=== PATIENT | female | born 1940 | race Caucasian/White ===

== ENCOUNTER 2018-06-04 20:40 | Inpatient (IN) | payer MEDICARE, BC ==
--- NOTE | 2018-06-04 20:59 | ED ---
Trauma HPI - General Chief Complaint: Extremity Injury, Upper Stated Complaint: Fall,arm injury Time Seen by Provider: 06/04/18 20:40 Source: patient, EMS, RN notes reviewed Mode of arrival: EMS Limitations: no limitations - History of Present Illness Initial Comments: This is a 77-year-old female who is on Elaquis who was brought in by EMS due to a fall. She barely tripped up a small step 8 her forehead against a door and falling forward onto outstretched hand. She complains of pain to her mid and distal right forearm she was given IV pain medication around it was wrapped she started bleeding after was wrapped. No complaints of back pain she refuses a cervical collar. MD Complaint: fall, injury - Related Data Home Medications Medication Instructions Recorded Confirmed Apixaban [Eliquis] 5 mg PO BID 06/04/18 06/04/18 Budesonide [Pulmicort] 0.5 mg INHALATION BID 06/04/18 06/04/18 Cholecalciferol (Vitamin D3) 4,000 unit PO DAILY 06/04/18 06/04/18 [Vitamin D3] Esomeprazole Magnesium [NexIUM] 40 mg PO DAILY 06/04/18 06/04/18 Magnesium 400 mg PO DAILY 06/04/18 06/04/18 Topiramate [Topamax] 25 mg PO DAILY 06/04/18 06/04/18 Allergies Allergy/AdvReac Type Severity Reaction Status Date / Time adhesive tape Allergy Unknown Verified 06/04/18 20:55 ciprofloxacin [From Cipro] Allergy Unknown Verified 06/04/18 20:55 epinephrine Allergy Unknown Verified 06/04/18 20:55 Penicillins Allergy Unknown Verified 06/04/18 20:55 povidone-iodine Allergy Unknown Verified 06/04/18 20:55 [From Betadine] soap [From Betadine] Allergy Unknown Verified 06/04/18 20:55 Sulfa (Sulfonamide Allergy Unknown Verified 06/04/18 20:55 Antibiotics) Tetanus Vaccines and Toxoid Allergy Unknown Verified 06/04/18 20:55 Review of Systems ROS Statement: Those systems with pertinent positive or pertinent negative responses have been documented in the HPI. ROS Other: All systems not noted in ROS Statement are negative. Past Medical History Past Medical History: Atrial Fibrillation, Asthma, COPD Additional Past Medical History / Comment(s): migraines; osteoporosis History of Any Multi-Drug Resistant Organisms: None Reported Past Surgical History: Appendectomy, Cholecystectomy, Hysterectomy Past Psychological History: No Psychological Hx Reported Smoking Status: Former smoker Past Alcohol Use History: None Reported Past Drug Use History: None Reported General Exam - General Exam Comments Initial Comments: This is a well-developed well-nourished awake alert oriented 3 female she does physical Jennifer Coma Scale 15 Limitations: no limitations General appearance: alert, anxious Head exam: Present: normocephalic, other (Slight contusion noted to the anterior mid to left forehead no step-off or crepitation) Eye exam: Present: normal appearance, PERRL, EOMI. Absent: scleral icterus, conjunctival injection, periorbital swelling ENT exam: Present: normal exam, mucous membranes moist Neck exam: Present: normal inspection, tenderness, full ROM, other (Patient does have some tenderness palpation of the lateral posterior neck no spinous process tenderness she still refuses a cervical collar. She also refused to comply with staying still.). Absent: lymphadenopathy Respiratory exam: Present: normal lung sounds bilaterally. Absent: respiratory distress, wheezes, rales, rhonchi, stridor Cardiovascular Exam: Present: regular rate, normal rhythm, normal heart sounds. Absent: systolic murmur, diastolic murmur, rubs, gallop, clicks GI/Abdominal exam: Present: soft, normal bowel sounds. Absent: distended, tenderness, guarding, rebound, rigid Extremities exam: Present: tenderness, normal capillary refill, other (Is a deformity to the distal right forearm is a small bleeding puncture wound to the distal volar medial forearm approximately 2-3 mm of his of any bony presentation though this may represent a puncture wound from bone fragment additionally there is a second puncture wound noted lateral to this with some small amount of venous bleeding..). Absent: full ROM, pedal edema, joint swelling, calf tenderness Back exam: Present: normal inspection Neurological exam: Present: alert, oriented X3, CN II-XII intact Psychiatric exam: Present: normal affect, normal mood Skin exam: Present: warm, dry, intact, normal color. Absent: rash Course Vital Signs 06/04/18 06/04/18 06/04/18 20:42 22:07 22:50 Temperature 97.8 F 99.2 F 98.1 F Pulse Rate 87 83 81 Respiratory 20 20 18 Rate Blood Pressure 179/77 155/67 153/82 O2 Sat by Pulse 96 96 96 Oximetry 06/04/18 23:25 Temperature Pulse Rate 75 Respiratory 18 Rate Blood Pressure 146/64 O2 Sat by Pulse 95 Oximetry Procedures - Orthopedic Splinting/Casting Injury #1 Side: right Upper Extremity Injury Location: short arm, wrist (I did place a 4 x 34 forearm/ wrist splint. Is good neurovascular exam afterwards. There were 2 puncture wounds were cleaned and antibiotic ointment were placed on them. A clean dressing was then applied this prior to the splint. Patient tolerated this well ) Upper Extremity Immobilizer: volar splint Medical Decision Making - Medical Decision Making I did discuss findings with the patient family CAT scan of the head neck are negative. I did discuss the case with Mamadou mike who did consult with Dr. Boykin. Patient will be admitted nothing by mouth after midnight medical clearance. Surgeries expected tomorrow. - Lab Data Result diagrams: 06/04/18 20:50 06/04/18 20:50 Lab Results 06/04/18 06/04/18 06/04/18 Range/Units 20:50 20:50 20:50 WBC 9.4 (3.8-10.6) k/uL RBC 4.09 (3.80-5.40) m/uL Hgb 12.9 (11.4-16.0) gm/dL Hct 39.7 (34.0-46.0) % MCV 97.0 (80.0-100.0) fL MCH 31.6 (25.0-35.0) pg MCHC 32.6 (31.0-37.0) g/dL RDW 15.1 (11.5-15.5) % Plt Count 239 (150-450) k/uL Neutrophils % 51 % Lymphocytes % 41 % Monocytes % 6 % Eosinophils % 1 % Basophils % 0 % Neutrophils # 4.7 (1.3-7.7) k/uL Lymphocytes # 3.8 (1.0-4.8) k/uL Monocytes # 0.5 (0-1.0) k/uL Eosinophils # 0.1 (0-0.7) k/uL Basophils # 0.0 (0-0.2) k/uL PT 10.5 (9.0-12.0) sec INR 1.1 (<1.2) APTT 23.8 (22.0-30.0) sec Sodium (137-145) mmol/L Potassium (3.5-5.1) mmol/L Chloride (98-107) mmol/L Carbon Dioxide (22-30) mmol/L Anion Gap mmol/L BUN (7-17) mg/dL Creatinine (0.52-1.04) mg/dL Est GFR (CKD-EPI)AfAm (>60 ml/min/1.73 sqM) Est GFR (CKD-EPI)NonAf (>60 ml/min/1.73 sqM) Glucose (74-99) mg/dL Calcium (8.4-10.2) mg/dL Magnesium (1.6-2.3) mg/dL Total Bilirubin (0.2-1.3) mg/dL AST (14-36) U/L ALT (9-52) U/L Alkaline Phosphatase (38-126) U/L Total Creatine Kinase 61 (30-135) U/L CK-MB (CK-2) 1.0 (0.0-2.4) ng/mL CK-MB (CK-2) Rel Index 1.6 Total Protein (6.3-8.2) g/dL Albumin (3.5-5.0) g/dL 06/04/18 Range/Units 20:50 WBC (3.8-10.6) k/uL RBC (3.80-5.40) m/uL Hgb (11.4-16.0) gm/dL Hct (34.0-46.0) % MCV (80.0-100.0) fL MCH (25.0-35.0) pg MCHC (31.0-37.0) g/dL RDW (11.5-15.5) % Plt Count (150-450) k/uL Neutrophils % % Lymphocytes % % Monocytes % % Eosinophils % % Basophils % % Neutrophils # (1.3-7.7) k/uL Lymphocytes # (1.0-4.8) k/uL Monocytes # (0-1.0) k/uL Eosinophils # (0-0.7) k/uL Basophils # (0-0.2) k/uL PT (9.0-12.0) sec INR (<1.2) APTT (22.0-30.0) sec Sodium 143 (137-145) mmol/L Potassium 4.0 (3.5-5.1) mmol/L Chloride 111 H (98-107) mmol/L Carbon Dioxide 21 L (22-30) mmol/L Anion Gap 11 mmol/L BUN 23 H (7-17) mg/dL Creatinine 1.21 H (0.52-1.04) mg/dL Est GFR (CKD-EPI)AfAm 51 (>60 ml/min/1.73 sqM) Est GFR (CKD-EPI)NonAf 44 (>60 ml/min/1.73 sqM) Glucose 112 H (74-99) mg/dL Calcium 9.3 (8.4-10.2) mg/dL Magnesium 2.1 (1.6-2.3) mg/dL Total Bilirubin 0.5 (0.2-1.3) mg/dL AST 46 H (14-36) U/L ALT 39 (9-52) U/L Alkaline Phosphatase 82 (38-126) U/L Total Creatine Kinase (30-135) U/L CK-MB (CK-2) (0.0-2.4) ng/mL CK-MB (CK-2) Rel Index Total Protein 6.8 (6.3-8.2) g/dL Albumin 4.1 (3.5-5.0) g/dL - EKG Data -: EKG Interpreted by Me (Sinus rhythm of 82. Interval 156 QRS 106 QT since QTC of 14/488 left exode) - Radiology Data Radiology results: report reviewed (I did review the imaging and report evidence of distal both bone fracture of the right forearm some impaction dorsal displacement of the distal fragment. Please see the complete report), image reviewed Disposition Clinical Impression: Open right forearm fracture, Fall Disposition: ADMITTED IP TO THIS [facility] Condition: Stable Referrals: Derik Hawley MD [Primary Care Provider] - 1-2 days
[2018-06-04] MEDS ORDERED: DIPH,PERTUS(ACELL)TETVAC-LF 0.5 ML VIAL IM ONE (21:19)
[2018-06-04] MEDS ORDERED: CLINDAMYCIN 600 MG in DEXTROSE 5% IN WATER 50 ML IVPB STA ×2 (21:19)
[2018-06-04 21:24] LABS: Albumin 4.1 g/dL (3.5-5.0); Calcium 9.3 mg/dL (8.4-10.2); Magnesium 2.1 mg/dL (1.6-2.3); Total Bilirubin 0.5 mg/dL (0.2-1.3); Total Protein 6.8 g/dL (6.3-8.2)
[2018-06-04 21:29] LABS: Basophils % (A) 0 %; Eosinophils # (A) 0.1 k/uL (0-0.7); Eosinophils % (A) 1 %; HCT 39.7 % (34.0-46.0); HGB 12.9 gm/dL (11.4-16.0); Lymphocytes # (A) 3.8 k/uL (1.0-4.8); Lymphocytes % (A) 41 %; MCH 31.6 pg (25.0-35.0); MCHC 32.6 g/dL (31.0-37.0); Mean Platelet Volume 7.3; Monocytes # (A) 0.5 k/uL (0-1.0); Monocytes % (A) 6 %; Neutrophils # (A) 4.7 k/uL (1.3-7.7); Neutrophils % (A) 51 %; Platelet Count 239 k/uL (150-450); RBC 4.09 m/uL (3.80-5.40); RDW 15.1 % (11.5-15.5); WBC 9.4 k/uL (3.8-10.6)
[2018-06-04 21:34] LABS: INR 1.1 (<1.2); Partial Thromboplastin Time 23.8 sec (22.0-30.0); Prothrombin Time 10.5 sec (9.0-12.0)
--- NOTE | 2018-06-04 21:41 | CT ---
EXAMINATION TYPE: CT brain fitz heard con DATE OF EXAM: 06/04/2018 COMPARISON: None. HISTORY: 77-year-old female with pain after Fall. CT DLP: 1276.4 mGycm Automated exposure control for dose reduction was used. Technique: Examination of the head was done in axial plane without intravenous contrast. Coronal and sagittal reconstructions performed. CT of the cervical spine was obtained in axial plane without intravenous injection of contrast mater ial. Coronal and sagittal reformatted images were obtained from the axial views for evaluation of f ractures, spinal alignment and canal. FINDINGS: Head: There is no evidence of acute intracranial hemorrhage, acute ischemic changes, mass, mass-effect, or extra-axial fluid collection. There is no effacement of cerebral sulci or basal subarachnoid cister ns. There is no hydrocephalus. There is no midline shift. Pool-white matter distinction is preserv ed. Moderate confluent white matter hypodensities in both cerebral hemispheres. Mild mucosal thickening posterior floor right maxillary sinus. Mastoid air cells well pneumatized. Or bits and globes are intact. No calvarial fracture. Cervical spine: No craniocervical junction abnormality, predental space widening, or prevertebral soft tissue swellin g. Mild to moderate degenerative disc disease at C5-C6 with a right-sided disc osteophyte complex. Scattered mild uncovertebral joint and facet arthropathy particularly in the mid to lower lumbar spin e. Variable mild neuroforaminal narrowing throughout. No acute fracture of the cervical spine. Retropharyngeal course of the bilateral ICAs. Sagittal and coronal reformatted images confirm above findings. COMBINED IMPRESSION: 1. No acute intracranial abnormality seen. Moderate confluent changes of chronic small vessel ischemi c disease. 2. No acute fracture or malalignment of the cervical spine. Mild spondylotic change.
--- NOTE | 2018-06-04 21:47 | XR ---
EXAMINATION TYPE: XR chest 1V, XR forearm 2 views RT DATE OF EXAM: 06/04/2018 COMPARISON: NONE HISTORY: 77-year-old female weight cough and pain after fall today FINDINGS: CHEST: Heart mildly enlarged. Diffuse interstitial densities. Possible trace left effusion. No shailesh consoli dation seen. Right forearm: Elbow articulation appears grossly intact. There is a comminuted, impacted fracture of the distal rad ial metaphysis and epiphysis with intra-articular extension into both the distal radial ulnar joint a s well as the radiocarpal joint. Shailesh dorsal displacement and dorsal angulation. Additional impacted and dorsally angulated fracture of the distal ulnar shaft extending into the metadiaphysis. IMPRESSION: 1. Chest: Mild cardiomegaly and interstitial changes. Poorly for possible bronchitis, asthma, or mild pulmonary vascular congestion. Possible trace left pleural effusion. 2. Right forearm: Impacted, dorsally angulated, and comminuted fractures of the distal radius and uln a. The distal radial fracture is also displaced dorsally and with intra-articular extension into both the radiocarpal and distal radioulnar joints.
[2018-06-04] MEDS ORDERED: LORazepam 2 MG/ML INJ IV STA (22:29)
--- NOTE | 2018-06-04 23:35 | XR ---
EXAMINATION TYPE: XR wrist complete RT DATE OF EXAM: 06/04/2018 COMPARISON: NONE HISTORY: Wrist pain TECHNIQUE: 3 views FINDINGS: There is impacted comminuted transverse fracture of the distal radius. There is also adjace nt fracture of the distal ulna. There is no dislocation. There is slight anterior angulation at the f racture sites. There is osteopenia. IMPRESSION: Acute fractures of distal radius and ulna with some impaction. No dislocation.
[2018-06-05] MEDS ORDERED: NALOXONE 0.4 MG/ML 1 ML VIAL IV PRN (00:10)
[2018-06-05] MEDS: SODIUM CHLORIDE 0.9% 1,000 ML IV SCH ×2 (00:20→10:00)
[2018-06-05] MEDS: HYDROmorphone 1 MG/ML 1 ML SYRINGE IVP PRN ×4 (01:10→09:55)
[2018-06-05] MEDS ORDERED: KETOROLAC 30 MG/ML 1 ML VIAL IVP STA (02:02)
--- NOTE | 2018-06-05 02:34 | P.CONS ---
History of Present Illness - Reason for Consult Consult date: 06/05/18 pre op clearance Requesting physician: Tuan Boykin - Chief Complaint fall , left forearm pain - History of Present Illness 77-year-old female with history of A. fib on Eliquis Patient presented the hospital after sustaining a fall. Patient reports that she was tripped and fell with outstretched hand hit her head did not lose consciousness she denies any symptoms associated with the fall like dizziness or lightheadedness. Denies any chest pain or trouble breathing. The fall resulted in severe pain in her right forearm. She also noticed wounds and she was bleeding. She was brought to the hospital by EMS further imaging revealed distal right radius and ulnar open fracture. Patient admitted under orthopedic surgery for possible surgical intervention. Otherwise patient currently denies any chest pain or trouble breathing denies any fevers or chills denies any coughing denies any abdominal pain denies any nausea or vomiting. Patient denies any GI bleeding. She is in severe pain 10 out of 10 in severity over her right forearm which has currently been placed in a back splint. Denies any numbness and tingling in her right fingers Review of Systems Pertinent positives as noted in HPI. All other systems were reviewed and are negative Past Medical History Past Medical History: Atrial Fibrillation, Asthma, COPD Additional Past Medical History / Comment(s): migraines; osteoporosis History of Any Multi-Drug Resistant Organisms: None Reported Past Surgical History: Appendectomy, Cholecystectomy, Hysterectomy Past Psychological History: No Psychological Hx Reported Smoking Status: Former smoker Past Alcohol Use History: None Reported Past Drug Use History: None Reported - Past Family History Family Additional Family Medical History / Comment(s): Patient denies any history of coronary artery disease Medications and Allergies Home Medications Medication Instructions Recorded Confirmed Type Apixaban [Eliquis] 5 mg PO BID 06/04/18 06/04/18 History Budesonide [Pulmicort] 0.5 mg INHALATION BID 06/04/18 06/04/18 History Cholecalciferol (Vitamin D3) 4,000 unit PO DAILY 06/04/18 06/04/18 History [Vitamin D3] Esomeprazole Magnesium [NexIUM] 40 mg PO DAILY 06/04/18 06/04/18 History Magnesium 400 mg PO DAILY 06/04/18 06/04/18 History Topiramate [Topamax] 25 mg PO DAILY 06/04/18 06/04/18 History Allergies Allergy/AdvReac Type Severity Reaction Status Date / Time adhesive tape Allergy Unknown Verified 06/04/18 20:55 ciprofloxacin [From Cipro] Allergy Unknown Verified 06/04/18 20:55 epinephrine Allergy Unknown Verified 06/04/18 20:55 Penicillins Allergy Unknown Verified 06/04/18 20:55 povidone-iodine Allergy Unknown Verified 06/04/18 20:55 [From Betadine] soap [From Betadine] Allergy Unknown Verified 06/04/18 20:55 Sulfa (Sulfonamide Allergy Unknown Verified 06/04/18 20:55 Antibiotics) Tetanus Vaccines and Toxoid Allergy Unknown Verified 06/04/18 20:55 Physical Exam Vitals: Vital Signs Temp Pulse Pulse Resp BP BP Pulse Ox 06/05/18 01:44 98.0 F 74 16 115/50 95 06/05/18 00:36 98.5 F 75 20 164/61 98 06/04/18 23:25 75 18 146/64 95 06/04/18 22:50 98.1 F 81 18 153/82 96 06/04/18 22:07 99.2 F 83 20 155/67 96 06/04/18 20:42 97.8 F 87 20 179/77 96 Intake and Output 06/04/18 06/04/18 06/05/18 14:59 22:59 06:59 Other: Weight 69.4 kg Constitutional: No acute distress, conversant, pleasant, well-developed , Eyes: Anicteric sclerae, moist conjunctiva, no lid-lag Pupils equal round reactive to light ENMT: NC/ evidence of bruising in the left forehead no open wounds Oropharynx clear, no erythema, or exudates Neck: Supple, FROM, no masses, or JVD No carotid bruits No thyromegaly Lungs: Clear to auscultation Clear to percussion Normal respiratory effort, no accessory muscle use Cardiovascular: Heart regular in rate and rhythm, No murmurs, gallops, or rubs No peripheral edema Abdominal: Soft Nontender, no guarding, rebound or rigidity Abdomen moving with respiration Normoactive bowel sounds No hepatomegaly, No splenomegaly No palpable mass No abdominal wall hernia noted Skin: Normal temperature, tone, texture, turgor No induration No subcutaneous nodules No rash, lesions No ulcers Extremities: Capillary refill is immediate over the right gutters, sensation is intact denies any tingling or numbness No digital cyanosis No clubbing Pedal pulses intact and symmetrical Radial pulses intact over the left breast, could not be evaluated on the right wrist due to splint and surgical dressing No calf tenderness Psychiatric: Alert and oriented to person, place and time Appropriate affect fair judgment Neuro Muscles Strength 5/5 in all 4 extremities except for limited exam over the right upper extremity due to severe pain and back splint placement Sensation to light touch grossly present throughout Cranial nerves II-XII grossly intact No focal sensory deficits Lymphatics: no palpable cervical or supraclavicular , or inguinal lymph nodes Results CBC & Chem 7: 06/04/18 20:50 06/04/18 20:50 Labs: Abnormal Lab Results - Last 24 Hours (Table) 06/04/18 Range/Units 20:50 Chloride 111 H (98-107) mmol/L Carbon Dioxide 21 L (22-30) mmol/L BUN 23 H (7-17) mg/dL Creatinine 1.21 H (0.52-1.04) mg/dL Glucose 112 H (74-99) mg/dL AST 46 H (14-36) U/L Assessment and Plan Assessment: patient is 77year old Female, with history of A. fib on Eliquis presetned after sustaining a fall resulting in wounds and pain in her right forearm further imaging showed distal fracture of right radius and ulna. Patient admitted under surgery for possible surgical intervention the morning medicine consult for preop clearance Patient denies any recent history or symptoms of congestive heart failure, mycardial infarction, syncope, arrhythmia, palpitation, or exertional dyspnea. Patient denies any past medical history of stroke, CAD, CHF, CKD, or DM. Patient is functional at baseline at >4 METs she is able to walk independently and also able to climb a flight of stairs only limiting factor would be arthritis at times. This puts her at METs over 4 Patient labs reviewed, EKG showed normal sinus rhythm. Patient is scheduled for orthopedic surgery to fix distal fracture of right radius and ulna. This is of moderate risk, however, patient has no medical risk factors from her past medical history. Patient can proceed to surgery with moderate but acceptable perioperative cardiovascular risk factors. This has been explained to the patient , all questions answered, patient verbalized understanding and agreement. Plan: Paroxysmal A. fib on Eliquis currently in sinus rhythm Hold Eliquis for possible surgery Distal fracture of right radius and ulna with open wound Management per orthopedic Pain control Back splint in place Regular checks to rule out neurovascular compromise DVT prophylaxis patient is on Eliquis at home currently on hold for possible surgery, continue with mechanical DVT prophylaxis Patient is full code Slight elevation of creatinine unknown baseline, recheck in the morning Monitor urine output Continue with IV fluid hydration gently Thank you for allowing us to participate in the care of this patient. Do not hesitate to contact us with questions. Someone can be reached from the [facility] hospitalist group at all hours of the day at [phone].
[2018-06-05 02:37] LABS: Appearance,Urine Cloudy (Clear); Bacteria,Urine Many /hpf; Bilirubin,Urine Negative (Negative); Blood,Urine Negative (Negative); Color,Urine Yellow; Glucose,Urine (UA) Negative (Negative); Ketones,Urine 1+ (Negative); Leukocyte Esterase,Urine Large (Negative); Mucus,Urine Occasional /hpf; Nitrite,Urine Negative (Negative); Protein,Urine 1+ (Negative); RBC,Urine 7 /hpf (0-5); Squamous Epithelial Cell,Urine 1 /hpf (0-4); WBC,Urine >182 /hpf (0-5)
[2018-06-05 08:25] LABS: Calcium 8.5 mg/dL (8.4-10.2); Potassium 4.3 mmol/L (3.5-5.1)
--- NOTE | 2018-06-05 09:32 | P.HPOR ---
History of Present Illness H&P Date: 06/05/18 Chief Complaint: Right wrist fracture Patient is a 77-year-old female who presented to [facility] last night after sustaining a fall in her home. Patient tripped and fell into a door, she initially had her head and then landed on the stretch right hand. She denies losing consciousness from the fall. She did immediate pain and deformity noted on the wrist. Upon arrival to [facility], imaging and lab tests were done. Images demonstrated a comminuted and displaced left distal radius and ulna fracture. I was contacted from the emergency room at [facility], discuss the case with the position. There was concern of 2 puncture wounds on the volar aspect of the wrist, it was determined this was likely from bone fragments and considered an open fracture. There is no obvious visual bone on exam by the emergency room physician. Patient was placed into a volar splint with Ivc wrap. She was given a dose IV antibiotics. According to the emergency room staff, the patient remained neurovascularly intact, and no serious amounts of blood loss were noted. Patient was admitted under our care, I was able to discuss the case and exam findings along with imaging studies might any Dr. Boykin. Plan was for surgery to happen on 06/05/2018. Consults were placed for medical clearance for surgery. I was able to examine the patient at bedside today, she is resting comfortably. She notes discomfort in the right wrist when she attempts to move it. She denies any left upper extremity pain, bilateral lower extremity pain, new onset cervical, thoracic or lumbar pain. She denies any headaches, lightheadedness, chest pain, shortness of breath, abdominal discomfort, fever or chills. Review of Systems Constitutional: Reports as per HPI Past Medical History Past Medical History: Atrial Fibrillation, Asthma, COPD, GERD/Reflux Additional Past Medical History / Comment(s): migraines; osteoporosis History of Any Multi-Drug Resistant Organisms: None Reported Past Surgical History: Appendectomy, Cholecystectomy, Hysterectomy, Tonsillectomy Additional Past Surgical History / Comment(s): D&C, colonoscopy Past Anesthesia/Blood Transfusion Reactions: Motion Sickness Additional Past Anesthesia/Blood Transfusion Reaction / Comment(s): Pt states she has severe motion sickness Smoking Status: Former smoker - Past Family History Mother Additional Family Medical History / Comment(s): Pt states mother had severe migraines and at the age of 43yrs while hospitalized with severe migraine but does not know cause of . Father Family Medical History: Myocardial Infarction ([place]) Additional Family Medical History / Comment(s): Father of a [place] at the age of 54yrs. Family Additional Family Medical History / Comment(s): Patient denies any history of coronary artery disease Medications and Allergies Home Medications Medication Instructions Recorded Confirmed Type Apixaban [Eliquis] 5 mg PO BID 06/04/18 06/04/18 History Budesonide [Pulmicort] 0.5 mg INHALATION BID 06/04/18 06/04/18 History Cholecalciferol (Vitamin D3) 4,000 unit PO DAILY 06/04/18 06/04/18 History [Vitamin D3] Esomeprazole Magnesium [NexIUM] 40 mg PO DAILY 06/04/18 06/04/18 History Magnesium 400 mg PO DAILY 06/04/18 06/04/18 History Topiramate [Topamax] 25 mg PO DAILY 06/04/18 06/04/18 History Allergies Allergy/AdvReac Type Severity Reaction Status Date / Time adhesive tape Allergy Unknown Verified 06/04/18 20:55 ciprofloxacin [From Cipro] Allergy Unknown Verified 06/04/18 20:55 epinephrine Allergy Unknown Verified 06/04/18 20:55 latex Allergy Rash/Hives Verified 06/05/18 08:08 Penicillins Allergy Unknown Verified 06/04/18 20:55 povidone-iodine Allergy Unknown Verified 06/04/18 20:55 [From Betadine] soap [From Betadine] Allergy Unknown Verified 06/04/18 20:55 Sulfa (Sulfonamide Allergy Unknown Verified 06/04/18 20:55 Antibiotics) Tetanus Vaccines and Toxoid Allergy Unknown Verified 06/04/18 20:55 Physical Examination Right upper extremity: Volar wrist splint is intact with the Vic bandage, bloody drainage is noted on the splint. Patient is able to wiggle the fingers minimal difficulty, her sensation to light touch both proximal distal to the splint are intact. Skin is warm to touch Results - Labs Labs: Abnormal Lab Results - Last 24 Hours (Table) 06/04/18 06/05/18 06/05/18 Range/Units 20:50 02:11 07:12 Chloride 111 H 116 H (98-107) mmol/L Carbon Dioxide 21 L 19 L (22-30) mmol/L BUN 23 H 23 H (7-17) mg/dL Creatinine 1.21 H (0.52-1.04) mg/dL Glucose 112 H 118 H (74-99) mg/dL AST 46 H (14-36) U/L Urine Appearance Cloudy H (Clear) Urine Protein 1+ H (Negative) Urine Ketones 1+ H (Negative) Ur Leukocyte Esterase Large H (Negative) Urine RBC 7 H (0-5) /hpf Urine WBC >182 H (0-5) /hpf Urine WBC Clumps Few H (None) /hpf Urine Bacteria Many H (None) /hpf Urine Mucus Occasional H (None) /hpf H & H 06/04/18 Range/Units 20:50 Hgb 12.9 (11.4-16.0) gm/dL Hct 39.7 (34.0-46.0) % Coagulation 06/04/18 Range/Units 20:50 INR 1.1 (<1.2) Result Diagrams: 06/04/18 20:50 06/05/18 07:12 - Diagnostic results Wrist/Hand x-ray: report reviewed, image reviewed Assessment and Plan Plan: Imaging: Multiple views of the right wrist were obtained. Images demonstrated a comminuted displaced right distal radius fracture. There is also displacement and fracture noted of the distal ulna. Assessment: 1. Displaced and comminuted right distal radius fracture 2. Displaced right distal ulna fracture Plan: The case was discussed my attending Dr. Boykin, this including exam findings and imaging studies. Our plan is to proceed with an open reduction internal fixation of the right distal radius. Consent will declare possible need for ORIF of right distal ulna fracture. Risk and benefits the procedure discussed the patient, I advised her that she' ll be able to discuss Dr. Boykin any further questions in the preoperative period. I also explained to the patient I would discuss the case with her . Obtain consent Nothing by mouth Pain control Medical clearances Hold eliquis at this time, resume after surgery Further recommendations follow after surgery Time with Patient: Less than 30
--- NOTE | 2018-06-05 10:16 | P.PN ---
Progress Note - Text Progress Note Date: 06/05/18 Hospitalist update note: Patient seen at bedside. C/O pain in her arm, no shortness of breath or nausea, no vomiting. Plan is for OR today, last eliquis 06/03 in the evening. Gen.: Moderate distress secondary to pain, appears at stated age, normal weight Cardiovascular: S1-S2 without murmurs/rubs/gallops, no edema Lungs: Clear to auscultation bilaterally without rhonchi or wheeze, no accessory muscle use Musculoskeletal: Right arm in dressings with small amount of sanguineous soak through Open Fracture of the Ulna and radius on the right -Orthopedic management Probable urinary tract infection -1 dose of Rocephin now and every 24 hours -Await urine cultures Chronic atrophic ablation -Telemetry -Hold eliquis until cleared by orthopedics for this medication. No billing is associated with this note, for formal note from 06/05 please see consultation by Dr. Alcantara.
--- NOTE | 2018-06-05 13:07 | XR ---
EXAMINATION TYPE: XR chest 1V portable DATE OF EXAM: 06/05/2018 COMPARISON: 06/04/2018 HISTORY: Shortness of breath TECHNIQUE: Single frontal view of the chest is obtained. FINDINGS: Bilateral consolidation and tiny effusion. Interstitial pattern seen. No pneumothorax. Art hropathy of the shoulders. Diffuse osteopenia. IMPRESSION: 1. Bilateral infiltrate and tiny effusion. Correlate for pneumonia versus early venous congestion.
[2018-06-05] MEDS ORDERED: FUROSEMIDE 10 MG/ML 2 ML VIAL IV ONE (13:08)
[2018-06-05 13:09] LABS: HCT 42.5 % (34.0-46.0); HGB 13.3 gm/dL (11.4-16.0); Hypochromasia Slight; MCH 31.5 pg (25.0-35.0); MCHC 31.3 g/dL (31.0-37.0); MCV 100.7 fL (80.0-100.0); Macrocytosis Slight; Mean Platelet Volume 7.1; Platelet Count 190 k/uL (150-450); RBC 4.22 m/uL (3.80-5.40); RDW 15.1 % (11.5-15.5); WBC 6.2 k/uL (3.8-10.6)
[2018-06-05 13:18] LABS: ABG Base Excess -7.8 mmol/L; ABG HCO3 18 mmol/L (21-25); ABG Oxygen Saturation 94.8 % (94-97); ABG PCO2 32 mmHg (35-45); ABG PH 7.35 (7.35-7.45); ABG PO2 70 mmHg (83-108); ABG TCO2 19 mmol/L (19-24)
[2018-06-05] MEDS: CLINDAMYCIN 300 MG in DEXTROSE 5% IN WATER 50 ML IVPB SCH ×4 (13:37→22:27)
--- NOTE | 2018-06-05 14:03 | P.PN ---
Progress Note - Text Progress Note Date: 06/05/18 Called to see patient note: CTSP the patient around 11 AM secondary to sudden onset hypoxia. Arrived to bedside patient was satting 88% on 5 L nasal cannula. She was slightly confused but arousable. Denied any chest pain or shortness of breath. Nursing reports that this is sudden occurrence after receiving some Dilaudid a couple hours prior. Patient had not been complaining anything prior to onset. manager user interface had gone in to examine patient and heard some crackles. General: [non toxic], [no distress], [appears at stated age] Derm: [warm], [dry] Head: [atraumatic], [normocephalic], [symmetric] Eyes: [EOMI], [no lid lag], [anicteric sclera] Mouth: [no lip lesion], [mucus membranes moist] Cardiovascular: [S1S2 reg], [no murmur], [positive posterior tibial pulse bilateral], Lungs: [CTA bilateral], [no rhonchi, no rales] , [no accessory muscle use] Abdominal: [soft], [ nontender to palpation], [no guarding], [no appreciable organomegaly] Ext: [no gross muscle atrophy], [no edema], [no contractures] Neuro: [ CN II-XI grossly intact], [no focal neuro deficits] Psych: [Alert], [oriented], [appropriate affect] 1. Fluid overload -Had checked stat EKG consistent with sinus tachycardia no ST segment elevation. Troponin negative. Hemoglobin stable. No prior history of CHF. CXR consistent with fluid overload. - IV fluids discontinued - Lasix 20 IVP, correia cath - ABG stable. 2. Sinus tachycardia - due to above - lasxi 3. UTI- rocephin ordered Suspect CHF, will check echo in AM. 4. COPD - will need breathing treatments prior to surgery. 5. Open wrist fracture - likely surgery today. Per Dr. Boykin OR today is needed due to open fracture. Discussed with Anesthesia monorail charger operator and he is aware of acute fluid overload and current medications being given. Patient is at elevated risk for post-op complications with acute fluid overload , however not prohibitive risk as repair is needed due to open fracture. Patient is aware. A total of 30 minutes of critical care time was spent on this complex care.
[2018-06-05] MEDS ORDERED: NON-FORMULARY DRUG (Ipratropium/Albuterol Sulfate [Combivent Respimat Inhaler] 1 PUFF) INHALATION PRN (14:05)
[2018-06-05] MEDS ORDERED: IV FLUID CONTINUATION 700 ML IV ONE (16:41)
[2018-06-05] MEDS ORDERED: MIDAZOLAM 2 MG/2 ML VIAL ONE ×2 (16:57→18:27)
[2018-06-05] MEDS: TOPIRAMATE 25 MG TAB PO SCH ×2 (17:00→23:16)
[2018-06-05] MEDS ORDERED: MIDAZOLAM 2 MG/2 ML VIAL IVP ONE (17:10)
[2018-06-05] MEDS ORDERED: PROPOFOL 10 MG/ML 20 ML VIAL IV ONE (18:27)
[2018-06-05] MEDS ORDERED: NEOSTIGMINE 1 MG/ML 10 ML VIAL ONE (18:27)
[2018-06-05] MEDS ORDERED: SUCCINYLCHOLINE CHLORIDE 100 MG/5 ML SYR IV ONE (18:27)
[2018-06-05] MEDS ORDERED: ROPIVACAINE 5 MG/ML 30 ML VIAL ONE (18:27)
[2018-06-05] MEDS ORDERED: ePHEDrine SULFATE/0.9% NACL/PF 50 MG/5 ML SYRINGE IV ONE (18:27)
[2018-06-05] MEDS ORDERED: ROCURONIUM BROMIDE 10 MG/ML 10 ML VIAL IV ONE (18:27)
[2018-06-05] MEDS ORDERED: GLYCOPYRROLATE 0.2 MG/ML 2 ML VIAL ONE (18:27)
--- NOTE | 2018-06-05 18:51 | ECHOF ---
Referral Reason:CHF MEASUREMENTS -------- HEIGHT: 147.3 cm WEIGHT: 69.4 kg BP: 162/70 RVIDd: 2.4 cm (< 3.3) IVSd: 1.1 cm (0.6 - 1.1) LVIDd: 3.3 cm (3.9 - 5.3) LVPWd: 1.1 cm (0.6 - 1.1) IVSs: 1.6 cm LVIDs: 2.5 cm LVPWs: 1.6 cm LA Diam: 3.0 cm (2.7 - 3.8) Ao Diam: 3.0 cm (2.0 - 3.7) AV Cusp: 1.8 cm (1.5 - 2.6) MV EXCURSION: 16.659 mm (> 18.000) MV EF SLOPE: 121 mm/s (70 - 150) EPSS: 0.4 cm RAP: 5.00 mmHg RVSP: 37.00 mmHg FINDINGS -------- Resting tachycardia (HR>100bpm). This was a technically difficult study with suboptimal views. The left ventricular size is normal. There is borderline concentric left ventricular hypertrophy. Overall left ventricular systolic function is normal with, an EF between 55 - 60 %. The right ventricle is normal in size. The left atrial size is normal. The right atrium is normal in size. 3 ml of Lumason was utilized for enhancement of images. There is mild aortic valve sclerosis. Mild mitral annular calcification present. Mild tricuspid regurgitation present. There is mild pulmonary hypertension. The right ventricular systolic pressure, as measured by Doppler, is 37.00mmHg. The pulmonic valve was not well visualized. The aortic root size is normal. IVC Not well visulized. There is no pericardial effusion. CONCLUSIONS -------- 1. Resting tachycardia (HR>100bpm). 2. This was a technically difficult study with suboptimal views. 3. The left ventricular size is normal. 4. There is borderline concentric left ventricular hypertrophy. 5. Overall left ventricular systolic function is normal with, an EF between 55 - 60 %. 6. The right ventricle is normal in size. 7. The left atrial size is normal. 8. The right atrium is normal in size. 9. 3 ml of Lumason was utilized for enhancement of images. 10. There is mild aortic valve sclerosis. 11. Mild mitral annular calcification present. 12. Mild tricuspid regurgitation present. 13. There is mild pulmonary hypertension. 14. The right ventricular systolic pressure, as measured by Doppler, is 37.00mmHg. 15. The pulmonic valve was not well visualized. 16. The aortic root size is normal. 17. IVC Not well visulized. 18. There is no pericardial effusion. PACKAGING CLERK: Merced Pérez RDCS
[2018-06-05] MEDS: SYMBICORT 80-4.5 MCG INHALER INHALATION SCH (19:26)
[2018-06-05] MEDS ORDERED: CLINDAMYCIN 600 MG in SODIUM CHLORIDE 0.9% 1,000 ML IRRIGATION ONE (19:33)
--- NOTE | 2018-06-05 19:49 | P.OP ---
Date of Procedure: 06/05/18 Preoperative Diagnosis: Comminuted/displaced right distal radius ulnar fractures Postoperative Diagnosis: Same Procedure(s) Performed: Open reduction and internal fixation right distal radius fracture Implants: Synthes distal volar wrist plate with 6 locking smooth distal pegs and 3 proximal cortical screws Anesthesia: GEORGE Surgeon: Tuan Boykin Refiner Operator #1: Rebel Jacobo Estimated Blood Loss (ml): 15 Pathology: none sent Condition: stable Disposition: PACU Indications for Procedure: 77-year-old patient seen with a displaced right distal radius ulna fracture with comminution. There was also a small little wound measuring 2 mm along the distal ulnar side of the wrist. I recommended open reduction internal fixation. The procedure, risks, complications and recovery were discussed with the patient. She was agreeable and consent was obtained. Operative Findings: see description of procedure Description of Procedure: The patient was taken to the operative suite. The patient had received antibiotics. I attempted regional anesthetic was done by the department of anesthesia. The patient still had a fair amount of pain at the fracture site. At this point she underwent a general anesthetic by the primary a seizure. Well -padded tourniquet placed proximal right upper extremity. The right upper extremity was prepped and draped in the normal sterile orthopedic fashion. The extremity was elevated and tourniquet insufflated to 250. Was a small 2 mm wound along the distal ulnar aspect of the first. There was no evidence that this communicated with the fracture. I made a standard volar incision sharply through skin. Dissection was taken down to the fascia. The fascia was incised. I dissected down the fracture site. Blunt Warriormine's were positioned for retraction... Elevation was utilized to better define the fracture. It was a severely comminuted distal radius fracture. C-arm was brought in confirming this. I chose a Synthes distal volar wrist plate. I position it appropriately. I pulled one single cortical screw proximally for preliminary fixation. I brought the C-arm to the operative field at this point and confirmed good positioning of the plate. Again the distal fracture was severely comminuted. Mamadou CANDELARIO held the fracture in appropriate position while at this point I inserted multiple smooth pegs distally to achieve fixation in this very comminuted fracture. The C-arm brought in to the operative field confirming adequate alignment and good positioning of those pegs. At this point introduced 2 additional proximal cortical screws. At this point the entire construct was evaluated under AP and lateral intraoperative imaging and under live fluoroscopy I took the wrist range of motion and noted reasonable stability of the distal ulna fracture as well. At this point given the severe comminution of that as well and overall good stability intraoperatively I decided to accept that alignment. The wound was irrigated. The subcutaneous soft tissues were approximated with 3-0 Vicryl. The skin was approximated with 4-0 nylon suture. Sterile dressings were applied. The tourniquet was released with good immediate capillary refill noted of all digits. The patient's placed into a well-padded splint. She was awakened, transferred to a bed and then recovery stable condition. Mamadou CANDELARIO assisted procedure.
[2018-06-05] MEDS: HYDROmorphone 1 MG/ML 1 ML SYRINGE IVP ONE ×2 (20:00→20:15)
--- NOTE | 2018-06-05 20:50 | P.ONQ ---
Anesthesiology Proc Note - PNB - Peripheral Nerve Block Performed Right Infraclavicular Single Time Out Performed: Yes Procedure Start Time: 17:11 Procedure Stop Time: 17:19 Indication: Acute Post-Operative Pain, Requested by physician Sedation Type: Sedate with meaningful contact maintained Preparation: Sterile Prep Position: Supine Needle Size: 50mm (2") Needle Gauge: 21 Technique: Ultrasound Injectate: 0.5% Ropivacaine (see comment for volume) (ropi .5% 20cc) Blood Aspirated: No Pain Paresthesia on Injection Noted: No Resistance on Injection: Normal Events: Uneventful and Well Tolerated
[2018-06-05] MEDS: IPRATROPIUM BROMIDE 0.06% NASAL SPRAY (15 ML) EA NOSTRIL SCH ×2 (22:27→23:16)
[2018-06-05] MEDS: MORPHINE SULFATE 2 MG/ML SYRINGE IVP PRN (23:06)
[2018-06-05] MEDS: NON-FORMULARY DRUG (Omega-3 Acid Ethyl Esters [Lovaza] 2 GM) PO SCH (23:15)
[2018-06-05] MEDS: MONTELUKAST 10 MG TAB PO SCH (23:16)
[2018-06-06] MEDS: CLINDAMYCIN 300 MG in DEXTROSE 5% IN WATER 50 ML IVPB SCH ×4 (00:45→06:14)
[2018-06-06] MEDS: LEVOTHYROXINE 75 MCG TAB PO SCH (06:14)
[2018-06-06 07:45] LABS: HCT 37.6 % (34.0-46.0); HGB 12.3 gm/dL (11.4-16.0); MCH 32.1 pg (25.0-35.0); MCHC 32.8 g/dL (31.0-37.0); Mean Platelet Volume 7.4; Platelet Count 188 k/uL (150-450); RBC 3.84 m/uL (3.80-5.40); RDW 15.4 % (11.5-15.5); WBC 12.1 k/uL (3.8-10.6)
[2018-06-06 08:18] LABS: Calcium 7.8 mg/dL (8.4-10.2); Potassium 3.6 mmol/L (3.5-5.1)
--- NOTE | 2018-06-06 08:22 | XR ---
EXAMINATION TYPE: XR wrist limited RT DATE OF EXAM: 06/05/2018 COMPARISON: 06/04/2020 HISTORY: Postop TECHNIQUE: Two intraoperative image submitted FINDINGS: Postsurgical changes appear in near anatomic alignment. Displaced fracture involving the ul na noted. IMPRESSION: Postoperative change
--- NOTE | 2018-06-06 08:28 | FL ---
EXAMINATION TYPE: FL guidance operating room DATE OF EXAM: 06/05/2018 HISTORY: Flouroscopy time 28 seconds of fluoroscopy provided. IMPRESSION: 1. Fluoroscopy time.
[2018-06-06] MEDS: FOLIC ACID 1 MG TAB PO SCH (08:33)
[2018-06-06] MEDS: TOPIRAMATE 25 MG TAB PO SCH ×3 (08:33→21:43)
[2018-06-06] MEDS: NON-FORMULARY DRUG (Omega-3 Acid Ethyl Esters [Lovaza] 2 GM) PO SCH ×2 (08:36→21:41)
[2018-06-06] MEDS ORDERED: HYDROCHLOROTHIAZIDE 25 MG TAB PO SCH (09:00)
[2018-06-06] MEDS: SYMBICORT 80-4.5 MCG INHALER INHALATION SCH ×2 (09:07→20:43)
[2018-06-06] MEDS: MORPHINE SULFATE 2 MG/ML SYRINGE IVP PRN (09:31)
--- NOTE | 2018-06-06 10:20 | P.PN ---
Subjective Progress Note Date: 06/06/18 Principal diagnosis: Right arm pain Patient seen and examined. No acute events overnight. Patient reports improvement in her breathing since yesterday. Patient reports pain with movement of her right arm. Unable to quantify. She denies any shortness of breath, cough, chest pain, palpitations. Objective - Vital Signs Vital signs: Vital Signs Temp 97.7 F 06/06/18 07:00 Pulse 104 H 06/06/18 07:00 Resp 16 06/06/18 07:00 BP 110/69 06/06/18 07:00 Pulse Ox 97 06/06/18 07:00 Intake & Output 06/05/18 06/06/18 06/06/18 18:59 06:59 18:59 Intake Total 50 555 0 Output Total 565 100 Balance 50 -10 -100 Intake: IV 50 105 Oral 450 0 Output: Urine 550 Straight 100 Uretheral (Us) 300 Post Void Residual 100 Estimated Blood Loss 15 Other: Voiding Method Toilet Indwelling Catheter # Voids 3 - Exam General: [non toxic], [no distress], [appears at stated age] Derm: [warm], [dry] Head: [atraumatic], [normocephalic], [symmetric] Eyes: [EOMI], [no lid lag], [anicteric sclera] Mouth: [no lip lesion], [mucus membranes moist] Cardiovascular: [S1S2 reg], [no murmur], [irregular] Lungs: [CTA bilateral], [no rhonchi, no rales] , [no accessory muscle use] Abdominal: [soft], [ nontender to palpation], [no guarding], [no appreciable organomegaly] Ext: [no gross muscle atrophy], [no edema], [no contractures], [RUE wrapped, TTP , sensation intact to touch in all 5 fingers] Psych: [Alert], [oriented], [appropriate affect] - Labs CBC & Chem 7: 06/06/18 07:14 06/06/18 07:14 Labs: Abnormal Lab Results - Last 24 Hours (Table) 06/05/18 06/05/18 06/06/18 Range/Units 12:46 13:16 07:14 WBC 12.1 H (3.8-10.6) k/uL MCV 100.7 H (80.0-100.0) fL ABG pCO2 32 L (35-45) mmHg ABG pO2 70 L (83-108) mmHg ABG HCO3 18 L (21-25) mmol/L Chloride (98-107) mmol/L Carbon Dioxide (22-30) mmol/L BUN (7-17) mg/dL Calcium (8.4-10.2) mg/dL 06/06/18 Range/Units 07:14 WBC (3.8-10.6) k/uL MCV (80.0-100.0) fL ABG pCO2 (35-45) mmHg ABG pO2 (83-108) mmHg ABG HCO3 (21-25) mmol/L Chloride 112 H (98-107) mmol/L Carbon Dioxide 20 L (22-30) mmol/L BUN 26 H (7-17) mg/dL Calcium 7.8 L (8.4-10.2) mg/dL Microbiology - Last 24 Hours (Table) 06/05/18 02:11 Urine Culture - Preliminary Urine,Voided Assessment and Plan Assessment: Assessment and Plan 1. RUE pain: Mechanical fall. XR shows distal angulated open Fx of the radius and ulnar RUE. s/p ORIF POD 2. Pain management with Tylenol 650 mg PO Q6 PRN, Morphine 2 mg IV Q6H PRN for breakthrough. Will DC Clindamycin and continue Ceftriaxone. FU PT/OT, Orthopedic Sx 2. SOB: Resolved. EKG showing S. tachycardia with no ST changes. Hg 13.3 stable. Trop < 0.012. CXR showing BL infiltrate and tiny effusion, consistent with fluid overload. Given Lasix x 1 yesterday with resolution. Echo 55-60% with LVH. Optimize COPD medications. Avoid opiates for pain control if possible. O2 per NC to maintain O2 sat > 92%. Will continue to monitor. 3. Tachycardia: Sinus. Likely related to pain. Ensure adequate pain management. Avoid IVF due to overload prior to Sx. Telemetry monitoring. 4. UTI: UA shows large LE. Difficulty urinating per patient. Continue Rocephin 1g IV QD. FU UCx 5. Prerenal azotemia: BUN 26, Cr wnl. Likely due to dehydration. Hold home medication Lisinopril and HCTZ. No IVF due to overload prior to Sx. Encourage PO hydration. Avoid nephrotoxins. FU Daily BMP 6. Leukocytosis: WBC 12.1. Likely reactive due to pain or UTI. FU Daily CBC 7. A-Fib: s/p ablation. Resume Eliquis when OK by Orthopedic Sx. Telemetry monitoring. 8. COPD: Stable. Continue Symbicort 2 puff BID and Singulair 10 mg PO QHS. DuoNeb QID PRN for SOB. O2 per NC to maintain O2 sat > 92%. 9. HTN: BP 110/69. Continue HCTZ 25 mg PO QD. Monitor vitals, adjust medication as necessary. 10. Hypothyroidism: Stable. Conttinue Synthroid 50 mcg PO QSun + 75 mcg PO QMtoSat. 11. DVT/GI Prophylaxis: SCD boots only. Holding Eliquis until OK by Orthopedic Sx. Protonix 40 mg PO QD.
[2018-06-06] MEDS: IPRATROPIUM BROMIDE 0.06% NASAL SPRAY (15 ML) EA NOSTRIL SCH ×3 (11:57→21:42)
--- NOTE | 2018-06-06 13:29 | CDI ---
Last Revision, August 2017 Documentation Clarification Form Date: 06/06/18 From: Juany Al RN Admit Date: 06/05/2018 12:10:00 PM Patient Name: Radhika Duncan Visit Number: [id number] ATTENTION: The Clinical Documentation Specialists (CDI) and [facility] Coding Staff appreciate your assistance in clarifying documentation. Please respond to the clarification below the line at the bottom and electronically sign. The CDI & [facility] Coding staff will review the response and follow-up if needed. Please note: Queries are made part of the Legal Health Record. If you have any questions, please contact the author of this message via ITS. Dr. Shorty Lagunas MD, A diagnosis of UTI has been documented in the PN on 06/05. Pt. admitted for fall with open right forearm fracture History/Risk factors: A FIB, COPD, GERD, asthma, migraines, x smoker Clinical indicators: Per documentation in the ED notes state Us catheter was placed for urinary retention. Urinalysis: appearance cloudy, protein +1H, Ketones 1+ H, WBC >182, WBC clumps few, bacteria many, mucus occasional Urine culture: in progress Lab results on admission: CHL 111, C02 21, BUN 23, CR 1.21, AST 46 Treatment: Ceftriaxone IVPB .9 @ 100ml/hr In your professional opinion, can you please clarify the etiology of the UTI, if known? Us catheter UTI not related to catheter Other condition, please specify Unable to determine If an infective organism is present, please specify cause and effect relationship if applicable. MTDD
[2018-06-06] MEDS: ACETAMINOPHEN TAB 325 MG TAB PO PRN ×2 (14:44→21:43)
--- NOTE | 2018-06-06 17:10 | P.PN ---
Subjective Progress Note Date: 06/06/18 Principal diagnosis: Status post ORIF right distal radius fracture Patient seen today resting in her hospital chair, she appears comfortable. She remains slightly confused. Pain is controlled at this time. She denies any chest pain, fever chills. Objective - Vital Signs Vital signs: Vital Signs Temp 98.2 F 06/06/18 14:20 Pulse 121 H 06/06/18 14:20 Resp 16 06/06/18 14:20 BP 110/74 06/06/18 14:20 Pulse Ox 90 L 06/06/18 14:20 Intake & Output 06/05/18 06/06/18 06/06/18 18:59 06:59 18:59 Intake Total 50 555 118 Output Total 565 450 Balance 50 -10 -332 Intake: IV 50 105 Oral 450 118 Output: Urine 550 350 Straight 100 Uretheral (Us) 300 Post Void Residual 100 Estimated Blood Loss 15 Other: Voiding Method Toilet Indwelling Catheter # Voids 3 - Exam Right upper extremity: Splint is in good position and condition Soft tissue swelling present in the fingers She is able to wiggle the fingers and minimal difficulty Sensation to light touch. Proximal distal to the splint are intact - Labs CBC & Chem 7: 06/06/18 07:14 06/06/18 07:14 Labs: Abnormal Lab Results - Last 24 Hours (Table) 06/06/18 06/06/18 Range/Units 07:14 07:14 WBC 12.1 H (3.8-10.6) k/uL Chloride 112 H (98-107) mmol/L Carbon Dioxide 20 L (22-30) mmol/L BUN 26 H (7-17) mg/dL Calcium 7.8 L (8.4-10.2) mg/dL Microbiology - Last 24 Hours (Table) 06/05/18 02:11 Urine Culture - Preliminary Urine,Voided Gram Neg Bacilli Assessment and Plan Plan: Assessment: Postoperative day 1 status post ORIF right distal radius fracture Plan: Pain control, attempt to use Tylenol Elevate the wrist/hand often Will discuss with medicine outpatient oral antibiotics for open fracture Medical recommendations Discharge plan: Discharged home tomorrow Time with Patient: Less than 30
[2018-06-06] MEDS: PANTOPRAZOLE 40 MG TABLET PO SCH (18:05)
[2018-06-06] MEDS: MONTELUKAST 10 MG TAB PO SCH (21:42)
[2018-06-06] MEDS: APIXABAN 5 MG TAB PO SCH (21:42)
[2018-06-07] MEDS: LEVOTHYROXINE 75 MCG TAB PO SCH (05:48)
[2018-06-07] MEDS: ACETAMINOPHEN TAB 325 MG TAB PO PRN ×3 (05:48→20:23)
[2018-06-07] MEDS: SYMBICORT 80-4.5 MCG INHALER INHALATION SCH ×2 (07:08→19:35)
--- NOTE | 2018-06-07 08:03 | P.PN ---
Subjective Progress Note Date: 06/07/18 Principal diagnosis: Distal angulated open fracture of the radius and ulna in the right upper extremity Patient is seen and examined. No acute events overnight. Patient reports great improvement in her right arm pain. She denies any dysuria. She denies shortness of breath, chest pain, nausea, vomiting, fever, dizziness. Patient is looking forward to going home this morning. Objective - Vital Signs Vital signs: Vital Signs Temp 98.2 F 06/07/18 07:35 Pulse 91 06/07/18 07:35 Resp 16 06/07/18 07:35 BP 92/59 06/07/18 07:35 Pulse Ox 93 L 06/07/18 07:35 Intake & Output 06/06/18 06/07/18 06/07/18 18:59 06:59 18:59 Intake Total 378 300 Output Total 450 Balance -72 300 Intake: Oral 378 300 Output: Urine 350 Post Void Residual 100 Other: Voiding Method Toilet # Voids 3 - Exam General: [non toxic], [no distress], [appears at stated age] Derm: [warm], [dry] Head: [atraumatic], [normocephalic], [symmetric] Eyes: [EOMI], [no lid lag], [anicteric sclera] Mouth: [no lip lesion], [mucus membranes moist] Cardiovascular: [S1S2 reg], [no murmur], [irregular] Lungs: [CTA bilateral], [no rhonchi, no rales] , [no accessory muscle use] Abdominal: [soft], [ nontender to palpation], [no guarding], [no appreciable organomegaly] Ext: [no gross muscle atrophy], [no edema], [no contractures], [RUE wrapped, TTP , sensation intact to touch in all 5 fingers, able to wiggle all fingers] Psych: [Alert], [oriented], [appropriate affect] - Labs CBC & Chem 7: 06/06/18 07:14 06/06/18 07:14 Labs: Abnormal Lab Results - Last 24 Hours (Table) 06/06/18 Range/Units 07:14 Chloride 112 H (98-107) mmol/L Carbon Dioxide 20 L (22-30) mmol/L BUN 26 H (7-17) mg/dL Calcium 7.8 L (8.4-10.2) mg/dL Microbiology - Last 24 Hours (Table) 06/05/18 02:11 Urine Culture - Preliminary Urine,Voided Gram Neg Bacilli Assessment and Plan Assessment: Assessment and Plan 1. RUE pain: Mechanical fall. XR shows distal angulated open Fx of the radius and ulnar RUE. s/p ORIF POD 2. Pain management with Tylenol 650 mg PO Q6 PRN, Morphine 2 mg IV Q6H PRN for breakthrough. Continue Ceftriaxone 1g IV QD, Abx for open Fx on DC as per Ortho. FU PT/OT, Orthopedic Sx 2. UTI: UA shows large LE. Difficulty urinating per patient. Continue Rocephin 1g IV QD. UCx showing GNR > 100k. FU UCx 3. Prerenal azotemia: BUN 26, Cr wnl. Likely due to dehydration. Hold home medication Lisinopril and HCTZ. No IVF due to overload prior to Sx. Encourage PO hydration. Avoid nephrotoxins. FU Daily BMP 4. Leukocytosis: WBC 12.1. Likely reactive due to pain or UTI. FU Daily CBC 5. SOB: Resolved. EKG showing S. tachycardia with no ST changes. Hg 13.3 stable. Trop < 0.012. CXR showing BL infiltrate and tiny effusion, consistent with fluid overload. Given Lasix x 1 with resolution prior to Sx. Echo 55-60% with LVH. Optimize COPD medications. Avoid opiates for pain control if possible. O2 per NC to maintain O2 sat > 92%. 6. Tachycardia: Resolved. Sinus. Likely related to pain. Ensure adequate pain management. Avoid IVF due to overload prior to Sx. Telemetry monitoring. 7. A-Fib: s/p ablation. Started Eliquis 5 mg PO BID as per Ortho. Telemetry monitoring. 8. COPD: Stable. Continue Symbicort 2 puff BID and Singulair 10 mg PO QHS. DuoNeb QID PRN for SOB. O2 per NC to maintain O2 sat > 92%. 9. HTN: BP 92/59. On the low side - hold HCTZ. Monitor vitals, adjust medication as necessary. 10. Hypothyroidism: Stable. Conttinue Synthroid 50 mcg PO QSun + 75 mcg PO QMtoSat. 11. DVT/GI Prophylaxis: Eliquis 5 mg PO BID. Protonix 40 mg PO QD. Patients mentation has greatly improved, pain under control. Patient looking forward to going home. Pending UCx results. States and nephew's family takes care of her at home. SOB and Tachycardia resolved. Likely DC today per Ortho recommendations.
[2018-06-07 08:13] LABS: HCT 37.5 % (34.0-46.0); HGB 12.3 gm/dL (11.4-16.0); MCH 32.4 pg (25.0-35.0); MCHC 32.9 g/dL (31.0-37.0); MCV 98.5 fL (80.0-100.0); Mean Platelet Volume 7.3; Platelet Count 196 k/uL (150-450); RBC 3.81 m/uL (3.80-5.40); RDW 15.1 % (11.5-15.5); WBC 17.1 k/uL (3.8-10.6)
[2018-06-07 08:39] LABS: Calcium 8.1 mg/dL (8.4-10.2)
[2018-06-07] MEDS: IPRATROPIUM BROMIDE 0.06% NASAL SPRAY (15 ML) EA NOSTRIL SCH ×3 (09:00→22:19)
[2018-06-07 09:02] LABS: Potassium 3.5 mmol/L (3.5-5.1)
[2018-06-07] MEDS: PANTOPRAZOLE 40 MG TABLET PO SCH (10:03)
[2018-06-07] MEDS: APIXABAN 5 MG TAB PO SCH ×2 (10:03→20:23)
[2018-06-07] MEDS: FOLIC ACID 1 MG TAB PO SCH (10:07)
--- NOTE | 2018-06-07 12:41 | P.PN ---
Subjective Progress Note Date: 06/07/18 Principal diagnosis: Status post ORIF right distal radius fracture Patient seen today resting in her hospital chair, she appears comfortable. Pain is controlled at this time. She denies any chest pain, fever chills. Objective - Vital Signs Vital signs: Vital Signs Temp 98.2 F 06/07/18 07:35 Pulse 91 06/07/18 07:35 Resp 16 06/07/18 07:35 BP 92/59 06/07/18 07:35 Pulse Ox 93 L 06/07/18 07:35 Intake & Output 06/06/18 06/07/18 06/07/18 18:59 06:59 18:59 Intake Total 378 300 Output Total 450 200 Balance -72 300 -200 Intake: Oral 378 300 Output: Urine 350 200 Post Void Residual 100 Other: Voiding Method Toilet # Voids 3 - Exam Right upper extremity: Splint is in good position and condition Soft tissue swelling present in the fingers She is able to wiggle the fingers and minimal difficulty Sensation to light touch. Proximal distal to the splint are intact - Labs CBC & Chem 7: 06/07/18 07:57 06/07/18 07:57 Labs: Abnormal Lab Results - Last 24 Hours (Table) 06/07/18 06/07/18 Range/Units 07:57 07:57 WBC 17.1 H (3.8-10.6) k/uL Chloride 110 H (98-107) mmol/L Carbon Dioxide 19 L (22-30) mmol/L BUN 25 H (7-17) mg/dL Calcium 8.1 L (8.4-10.2) mg/dL Microbiology - Last 24 Hours (Table) 06/05/18 02:11 Urine Culture - Final Urine,Voided Escherichia coli Assessment and Plan Plan: Assessment: Postoperative day #2 status post ORIF right distal radius fracture Urinary tract infection Plan: Pain control, attempt to use Tylenol Elevate the wrist/hand often Due to patient's current UTI, medical recommendations with regards to continuing IV antibiotics in hospital Discharge plan: This patient stable via orthopedics standpoint for discharge
[2018-06-07] MEDS: NON-FORMULARY DRUG (Omega-3 Acid Ethyl Esters [Lovaza] 2 GM) PO SCH ×2 (12:54→20:23)
[2018-06-07] MEDS: TOPIRAMATE 25 MG TAB PO SCH ×3 (12:59→22:20)
[2018-06-07] MEDS: PIPERACILLIN-TAZOBACTAM 3.375 GM in DEXTROSE/WATER 1 50ML.BAG IVPB SCH (16:14)
[2018-06-07] MEDS: MORPHINE SULFATE 2 MG/ML SYRINGE IVP PRN (16:37)
[2018-06-07] MEDS: IPRATROPIUM-ALBUTEROL 3 ML NEB INHALATION PRN (19:42)
[2018-06-07] MEDS: MONTELUKAST 10 MG TAB PO SCH (20:23)
[2018-06-08] MEDS: PIPERACILLIN-TAZOBACTAM 3.375 GM in DEXTROSE/WATER 1 50ML.BAG IVPB SCH ×4 (00:40→23:41)
[2018-06-08] MEDS: ACETAMINOPHEN TAB 325 MG TAB PO PRN (03:05)
[2018-06-08] MEDS: LEVOTHYROXINE 75 MCG TAB PO SCH (05:56)
[2018-06-08] MEDS: MORPHINE SULFATE 2 MG/ML SYRINGE IVP PRN ×4 (05:56→23:40)
[2018-06-08] MEDS: SYMBICORT 80-4.5 MCG INHALER INHALATION SCH ×2 (06:57→20:39)
[2018-06-08] MEDS: NON-FORMULARY DRUG (Omega-3 Acid Ethyl Esters [Lovaza] 2 GM) PO SCH ×2 (07:39→20:38)
[2018-06-08] MEDS: PANTOPRAZOLE 40 MG TABLET PO SCH (07:43)
[2018-06-08] MEDS: TOPIRAMATE 25 MG TAB PO SCH ×3 (07:43→21:40)
[2018-06-08] MEDS: APIXABAN 5 MG TAB PO SCH ×2 (07:43→20:31)
[2018-06-08] MEDS: IPRATROPIUM BROMIDE 0.06% NASAL SPRAY (15 ML) EA NOSTRIL SCH ×2 (07:43→22:30)
[2018-06-08] MEDS: DOCUSATE 100 MG CAP PO SCH ×2 (08:59→20:31)
--- NOTE | 2018-06-08 11:11 | P.PN ---
Subjective Progress Note Date: 06/08/18 Principal diagnosis: Status post ORIF right distal radius fracture Patient seen today resting in her hospital chair, she appears comfortable. Pain is controlled at this time. She denies any chest pain, fever chills. Objective - Vital Signs Vital signs: Vital Signs Temp 98.9 F 06/08/18 07:31 Pulse 94 06/08/18 07:31 Resp 18 06/08/18 07:31 BP 133/62 06/08/18 07:31 Pulse Ox 93 L 06/08/18 07:31 Intake & Output 06/07/18 06/08/18 06/08/18 18:59 06:59 18:59 Intake Total 1050 350 Output Total 200 Balance 850 350 Intake: Intake, IV Titration 50 Amount Piperacillin-Tazobactam 3 50 .375 gm In Dextrose/Water 1 50ml.bag @ 12.5 mls/hr IVPB Q8HR [facility] Rx#: [id number] Oral 1050 300 Output: Urine 200 Other: Voiding Method Toilet # Voids 1 4 - Exam Right upper extremity: Splint is in good position and condition Soft tissue swelling present in the fingers She is able to wiggle the fingers and minimal difficulty Sensation to light touch. Proximal distal to the splint are intact - Labs CBC & Chem 7: 06/07/18 07:57 06/07/18 07:57 Labs: Microbiology - Last 24 Hours (Table) 06/05/18 02:11 Urine Culture - Final Urine,Voided Escherichia coli Assessment and Plan Plan: Assessment: Postoperative day #3 status post ORIF right distal radius fracture Urinary tract infection Plan: Pain control, attempt to use Tylenol Elevate the wrist/hand often Due to patient's current UTI, medical recommendations with regards to continuing IV antibiotics in hospital Discharge plan: Patient is stable on orthopedic standpoint for discharge. We will transfer admission to internal medicine. Time with Patient: Less than 30
--- NOTE | 2018-06-08 12:38 | P.PN ---
Subjective Progress Note Date: 06/08/18 Patient sitting up in chair bedside, reports her pain is well-controlled. Afebrile overnight, reports that she hasn't her bowels recently has requested a stool softener. No acute events overnight Objective - Vital Signs Vital signs: Vital Signs Temp 98.9 F 06/08/18 07:31 Pulse 94 06/08/18 07:31 Resp 18 06/08/18 07:31 BP 133/62 06/08/18 07:31 Pulse Ox 93 L 06/08/18 07:31 Intake & Output 06/07/18 06/08/18 06/08/18 18:59 06:59 18:59 Intake Total 1050 350 Output Total 200 Balance 850 350 Intake: Intake, IV Titration 50 Amount Piperacillin-Tazobactam 3 50 .375 gm In Dextrose/Water 1 50ml.bag @ 12.5 mls/hr IVPB Q8HR [facility] Rx#: [id number] Oral 1050 300 Output: Urine 200 Other: Voiding Method Toilet # Voids 1 4 - Exam Constitutional: No acute distress, conversant, pleasant Eyes: Anicteric sclerae, moist conjunctiva, no lid-lag, PERRLA ENMT: NC/AT,Oropharynx clear, no erythema, exudates Neck:Supple, FROM, no masses, or JVD, No carotid bruits; No thyromegaly Lungs: Clear to auscultation, Clear to percussion, Normal respiratory effort, no accessory muscle use on 2 L nasal cannula Cardiovascular: Heart regular in rate and rhythm, No murmurs, gallops, or rubs no peripheral edema Abdominal: Soft Nontender, nom distended, no guarding, no rebound or rigidity, Normoactive bowel sounds No hepatomegaly, No splenomegaly, No palpable mass No abdominal wall hernia noted Skin: Normal temperature, tone, texture, turgor, No induration No subcutaneous nodules, No rash, lesions, No ulcers Extremities: Right upper extremity splinted, splinted in good position, able to wiggle fingers, some soft tissue swelling present in the fingers Psychiatric: Alert and oriented to person, place and time, Appropriate affect Intact judgement Neuro: Muscles Strength 5/5 in all 4 extremities, Sensation to light touch grossly present throughout, Cranial nerves II-XII grossly intact. No focal sensory deficits - Labs CBC & Chem 7: 06/07/18 07:57 06/07/18 07:57 Labs: Microbiology - Last 24 Hours (Table) 06/05/18 02:11 Urine Culture - Final Urine,Voided Escherichia coli Assessment and Plan (1) UTI due to extended-spectrum beta lactamase (ESBL) producing Escherichia coli Narrative/Plan: * Currently on day 2 of Zosyn we'll continue for a total of 3 days * ID consult previously Current Visit: Yes Status: Acute Code(s): N39.0 - URINARY TRACT INFECTION, SITE NOT SPECIFIED; B96.29 - OTH ESCHERICHIA COLI THE CAUSE OF DISEASES CLASSD ELSWHR; Z16.12 - EXTENDED SPECTRUM BETA LACTAMASE (ESBL) RESISTANCE SNOMED Code(s): 708909928 (2) Acute respiratory failure with hypoxia Narrative/Plan: * Secondary to fluid overload * Now resolved Current Visit: Yes Status: Resolved Code(s): J96.01 - ACUTE RESPIRATORY FAILURE WITH HYPOXIA SNOMED Code(s): 31168544 (3) Fluid overload Current Visit: Yes Status: Acute Code(s): E87.70 - FLUID OVERLOAD, UNSPECIFIED SNOMED Code(s): 18456033 (4) Open right forearm fracture Narrative/Plan: * Postop day #3 status post ORIF right distal radial fracture * Pain control per primary team Current Visit: Yes Status: Acute Code(s): S52.91XB - UNSP FRACTURE OF RIGHT FOREARM, INIT FOR OPN FX TYPE I/2 SNOMED Code(s): 84679431 Plan: * Anticipated discharge tomorrow
[2018-06-08] MEDS ORDERED: ONDANSETRON 4 MG/2 ML VIAL IVP PRN (12:45)
[2018-06-08] MEDS: FOLIC ACID 1 MG TAB PO SCH (13:30)
--- NOTE | 2018-06-08 15:05 | P.CONS ---
History of Present Illness - Reason for Consult Consult date: 06/08/18 ESBL - History of Present Illness This is a 77-year-old female patient who presented to Hospital back on June 05 after a fall and found to have a distal angulated fracture of the radius and ulnar on the right side. Patient underwent ORIF with Dr. Boykin on June 05. At that time, patient's white count jumped up to 17.1. She has remained afebrile since admission. There was a urinalysis sent and urine culture came back with ESBL E. coli susceptible to Zosyn which she has been started on. Patient does have a listed ALLERGY to penicillin, ciprofloxacin and sulfa which she states all caused tongue swelling the patient has been able to tolerate Zosyn without any symptoms. Patient did receive clindamycin during the perioperative period. Her relates that she did have a Us catheter placed on Tuesday but this has been removed. Patient states she has been voiding without any pain or difficulty. There's been no urinary frequency or urgency. She has been ambulating without lightheadedness and dizziness and was planned for discharge home until urine culture came back as ESBL. Patient is planning to return home with her and cleared home care is in place. Patient does complain of pain to the right forearm and large dressing is in place which was not removed. Review of Systems All systems: negative Constitutional: Denies chills, Denies fever, Denies lethargy, Denies malaise, Denies poor appetite, Denies weakness Eyes: denies blurred vision, denies pain Ears, nose, mouth and throat: Denies dental pain, Denies headache, Denies sore throat Cardiovascular: Denies chest pain, Denies decreased exercise tolerance, Denies dyspnea on exertion, Denies leg edema, Denies shortness of breath, Denies syncope Respiratory: Denies cough, Denies cough with sputum, Denies dyspnea, Denies excessive sputum, Denies hemoptysis, Denies home oxygen, Denies wheezing Gastrointestinal: Denies abdominal pain, Denies diarrhea, Denies loss of appetite, Denies nausea, Denies vomiting Genitourinary: Denies dysuria, Denies hematuria, Denies urgency, Denies urinary frequency Musculoskeletal: Denies frequent falls, Denies gait dysfunction, Denies myalgias Integumentary: Denies pruritus, Denies rash Neurological: Denies numbness, Denies weakness Psychiatric: Denies anxiety, Denies depression Endocrine: Denies fatigue, Denies weight change Past Medical History Past Medical History: Atrial Fibrillation, Asthma, COPD, GERD/Reflux Additional Past Medical History / Comment(s): migraines; osteoporosis History of Any Multi-Drug Resistant Organisms: ESBL Year Discovered:: 06/05/18 MDRO Source:: esbl urine Past Surgical History: Appendectomy, Cholecystectomy, Hysterectomy, Tonsillectomy Additional Past Surgical History / Comment(s): D&C, colonoscopy Past Anesthesia/Blood Transfusion Reactions: Motion Sickness Additional Past Anesthesia/Blood Transfusion Reaction / Comm: Pt states she has severe motion sickness Smoking Status: Former smoker Additional Past Alcohol Use History / Comment(s): patient was a smoker of a half a pack per day for 40 years and quit when she was 60 years of age. She denies any medical marijuana, marijuana, street drug or alcohol use. 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 She lives at home with her . There are no pets in the home but she does have contact with a great [place] next door. No recent travel. No service. - Past Family History Mother Additional Family Medical History / Comment(s): Pt states mother had severe migraines and at the age of 43yrs while hospitalized with severe migraine but does not know cause of . Father Family Medical History: Myocardial Infarction (DE) Additional Family Medical History / Comment(s): Father of a DE at the age of 54yrs. Family Additional Family Medical History / Comment(s): Patient denies any history of coronary artery disease Medications and Allergies Home Medications Medication Instructions Recorded Confirmed Type Apixaban [Eliquis] 5 mg PO BID 06/04/18 06/04/18 History Cholecalciferol (Vitamin D3) 2,000 unit PO DAILY 06/04/18 06/05/18 History [Vitamin D3] Esomeprazole Magnesium [NexIUM] 40 mg PO DAILY 06/04/18 06/04/18 History ALPRAZolam [Xanax] 0.25 mg PO HS PRN 06/05/18 06/05/18 History Benzonatate [Tessalon Perles] 200 mg PO TID PRN 06/05/18 06/05/18 History Fluticasone/Salmeterol [Advair 1 puff INHALATION RT-Q12H 06/05/18 06/05/18 History 250-50 Diskus] Folic Acid 1 mg PO DAILY 06/05/18 06/05/18 History HYDROcodone/APAP 7.5-325MG [[place] 1 tab PO Q8H PRN 06/05/18 06/05/18 History 7.5-325] Hydrochlorothiazide [Hydrodiuril] 25 mg PO DAILY 06/05/18 06/05/18 History Ipratropium [place] 0.06%Nasal 2 spray EA NOSTRIL TID 06/05/18 06/05/18 History [Atrovent Nasal 0.06%] Ipratropium/Albuterol Sulfate 1 puff INHALATION RT-QID PRN 06/05/18 06/05/18 History [Combivent Respimat Inhaler] Levothyroxine Sodium [Synthroid] 50 mcg PO OVIEDO 06/05/18 06/05/18 History Levothyroxine Sodium [Synthroid] 75 mcg PO MOTUWETHFRSA 06/05/18 06/05/18 History Lisinopril [Zestril] 10 mg PO DAILY 06/05/18 06/05/18 History Magnesium Oxide [Mag-Ox] 250 mg PO DAILY 06/05/18 06/05/18 History Methotrexate Sodium [Methotrexate] 20 mg PO FR 06/05/18 06/05/18 History Montelukast [Singulair] 10 mg PO HS 06/05/18 06/05/18 History [place]-3 Acid Ethyl Esters [Lovaza] 2 gm PO BID 06/05/18 06/05/18 History Topiramate [Topamax] 50 mg PO TID 06/05/18 06/05/18 History Allergies Allergy/AdvReac Type Severity Reaction Status Date / Time adhesive tape Allergy Unknown Verified 06/05/18 16:42 ciprofloxacin [From Cipro] Allergy Unknown Verified 06/05/18 16:42 epinephrine Allergy Unknown Verified 06/05/18 16:42 latex Allergy Rash/Hives Verified 06/05/18 16:42 Penicillins Allergy Unknown Verified 06/05/18 16:42 povidone-iodine Allergy Unknown Verified 06/05/18 16:42 [From Betadine] soap [From Betadine] Allergy Unknown Verified 06/05/18 16:42 Sulfa (Sulfonamide Allergy Unknown Verified 06/05/18 16:42 Antibiotics) Tetanus Vaccines and Toxoid Allergy Unknown Verified 06/05/18 16:42 Physical Exam Vitals: Vital Signs Temp Pulse Pulse Resp BP Pulse Ox 06/08/18 07:31 98.9 F 94 18 133/62 93 L 06/08/18 00:39 98.4 F 104 H 16 133/61 92 L 06/07/18 19:54 108 H 06/07/18 19:42 114 H 90 L 06/07/18 19:15 98.0 F 114 H 16 144/61 92 L 06/07/18 16:35 80 16 Intake and Output 06/07/18 06/08/18 06/08/18 22:59 06:59 14:59 Intake Total 450 350 540 Balance 450 350 540 Intake: Intake, IV Titration 50 Amount Piperacillin-Tazobactam 3 50 .375 gm In Dextrose/Water 1 50ml.bag @ 12.5 mls/hr IVPB Q8HR [facility] Rx#: [id number] Oral 450 300 540 Other: Voiding Method Toilet # Voids 1 4 2 Gen: This is a 77-year-old female. She is sitting up in bed and appears to be comfortable and in no acute distress. HEENT: Head is atraumatic, normocephalic. Pupils equal, round. Sclerae is anicteric. conjunctiva pink. Mucous members of the mouth are slightly dry. Patient is edentulous with dentures in place NECK: Supple. No JVD. No lymphadenopathy. No thyromegaly. LUNGS: Clear to auscultation. No wheezes or rhonchi. No intercostal retractions. HEART: Regular rate and rhythm. No murmur. ABDOMEN: Soft. Bowel sounds are present. No masses. No tenderness. EXTREMITIES: No pedal edema. No calf tenderness.dorsalis pedis 1+ bilaterally. Patient has a large dressing in place to the right upper extremity. Capillary refill is immediate. She is able to move fingers minimally. NEUROLOGICAL: Patient is awake, alert and oriented x3. Cranial nerves 2 through 12 are grossly intact. Results Results: Laboratory Results WBC 17.1 k/uL (3.8-10.6) H 06/07/18 07:57 RBC 3.81 m/uL (3.80-5.40) 06/07/18 07:57 Hgb 12.3 gm/dL (11.4-16.0) 06/07/18 07:57 Hct 37.5 % (34.0-46.0) 06/07/18 07:57 MCV 98.5 fL (80.0-100.0) 06/07/18 07:57 MCH 32.4 pg (25.0-35.0) 06/07/18 07:57 MCHC 32.9 g/dL (31.0-37.0) 06/07/18 07:57 RDW 15.1 % (11.5-15.5) 06/07/18 07:57 Plt Count 196 k/uL (150-450) 06/07/18 07:57 Neutrophils % 51 % 06/04/18 20:50 Lymphocytes % 41 % 06/04/18 20:50 Monocytes % 6 % 06/04/18 20:50 Eosinophils % 1 % 06/04/18 20:50 Basophils % 0 % 06/04/18 20:50 Neutrophils # 4.7 k/uL (1.3-7.7) 06/04/18 20:50 Lymphocytes # 3.8 k/uL (1.0-4.8) 06/04/18 20:50 Monocytes # 0.5 k/uL (0-1.0) 06/04/18 20:50 Eosinophils # 0.1 k/uL (0-0.7) 06/04/18 20:50 Basophils # 0.0 k/uL (0-0.2) 06/04/18 20:50 Hypochromasia Slight 06/05/18 12:46 Macrocytosis Slight 06/05/18 12:46 PT 10.5 sec (9.0-12.0) 06/04/18 20:50 INR 1.1 (<1.2) 06/04/18 20:50 APTT 23.8 sec (22.0-30.0) 06/04/18 20:50 Sample Site LRAD 06/05/18 13:16 ABG pH 7.35 (7.35-7.45) 06/05/18 13:16 ABG pCO2 32 mmHg (35-45) L 06/05/18 13:16 ABG pO2 70 mmHg (83-108) L 06/05/18 13:16 ABG HCO3 18 mmol/L (21-25) L 06/05/18 13:16 ABG Total CO2 19 mmol/L (19-24) 06/05/18 13:16 ABG O2 Saturation 94.8 % (94-97) 06/05/18 13:16 ABG Base Excess -7.8 mmol/L 06/05/18 13:16 Javier Test Yes 06/05/18 13:16 FiO2 40 % 06/05/18 13:16 Sodium 140 mmol/L (137-145) 06/07/18 07:57 Potassium 3.5 mmol/L (3.5-5.1) 06/07/18 07:57 Chloride 110 mmol/L (98-107) H 06/07/18 07:57 Carbon Dioxide 19 mmol/L (22-30) L 06/07/18 07:57 Anion Gap 11 mmol/L 06/07/18 07:57 BUN 25 mg/dL (7-17) H 06/07/18 07:57 Creatinine 0.92 mg/dL (0.52-1.04) 06/07/18 07:57 Est GFR (CKD-EPI)AfAm 71 (>60 ml/min/1.73 sqM) 06/07/18 07:57 Est GFR (CKD-EPI)NonAf 61 (>60 ml/min/1.73 sqM) 06/07/18 07:57 Glucose 86 mg/dL (74-99) 06/07/18 07:57 Calcium 8.1 mg/dL (8.4-10.2) L 06/07/18 07:57 Magnesium 2.1 mg/dL (1.6-2.3) 06/04/18 20:50 Total Bilirubin 0.5 mg/dL (0.2-1.3) 06/04/18 20:50 AST 46 U/L (14-36) H 06/04/18 20:50 ALT 39 U/L (9-52) 06/04/18 20:50 Alkaline Phosphatase 82 U/L (38-126) 06/04/18 20:50 Total Creatine Kinase 61 U/L (30-135) 06/04/18 20:50 CK-MB (CK-2) 1.0 ng/mL (0.0-2.4) 06/04/18 20:50 CK-MB (CK-2) Rel Index 1.6 06/04/18 20:50 Troponin I <0.012 ng/mL (0.000-0.034) 06/05/18 12:46 Total Protein 6.8 g/dL (6.3-8.2) 06/04/18 20:50 Albumin 4.1 g/dL (3.5-5.0) 06/04/18 20:50 Urine Color Yellow 06/05/18 02:11 Urine Appearance Cloudy (Clear) H 06/05/18 02:11 Urine pH 7.0 (5.0-8.0) 06/05/18 02:11 Ur Specific Odem 1.020 (1.001-1.035) 06/05/18 02:11 Urine Protein 1+ (Negative) H 06/05/18 02:11 Urine Glucose (UA) Negative (Negative) 06/05/18 02:11 Urine Ketones 1+ (Negative) H 06/05/18 02:11 Urine Blood Negative (Negative) 06/05/18 02:11 Urine Nitrite Negative (Negative) 06/05/18 02:11 Urine Bilirubin Negative (Negative) 06/05/18 02:11 Urine Urobilinogen 2.0 mg/dL (<2.0) 06/05/18 02:11 Ur Leukocyte Esterase Large (Negative) H 06/05/18 02:11 Urine RBC 7 /hpf (0-5) H 06/05/18 02:11 Urine WBC >182 /hpf (0-5) H 06/05/18 02:11 Urine WBC Clumps Few /hpf (None) H 06/05/18 02:11 Ur Squamous Epith Cells 1 /hpf (0-4) 06/05/18 02:11 Urine Bacteria Many /hpf (None) H 06/05/18 02:11 Urine Mucus Occasional /hpf (None) H 06/05/18 02:11 CBC & Chem 7: 06/07/18 07:57 06/07/18 07:57 Labs: Microbiology - Last 24 Hours (Table) 06/05/18 02:11 Urine Culture - Final Urine,Voided Escherichia coli Assessment and Plan Plan: this is a 77-year-old female presented to the hospital after a trip and fall found to have a distal angulated fracture of the radius and ulnar status post ORIF. Patient did have a increase in her white count but has been afebrile. A urinalysis was sent and culture came back as ESBL E. coli and patient was started on Zosyn which is susceptible. At this point, patient is denying any symptoms of a urinary tract infection this most likely is a asymptomatic bacteriuria and no antibiotics are necessary. Continue supportive care. Further recommendations as patient progresses. The above dictated assessment and findings were discussed with Dr. Lagunas. The impression and plan of care have been directed as dictated. Marisela Shelley nurse practitioner acting as scribe for Dr. Lagunas.
[2018-06-08 15:30] LABS: Appearance,Urine Clear (Clear); Bilirubin,Urine Negative (Negative); Blood,Urine Negative (Negative); Color,Urine Yellow; Glucose,Urine (UA) Negative (Negative); Ketones,Urine Negative (Negative); Leukocyte Esterase,Urine Negative (Negative); Nitrite,Urine Negative (Negative); PH, Urine 6.5 (5.0-8.0); Protein,Urine Negative (Negative); Specific Gravity,Urine 1.016 (1.001-1.035); Urobilinogen,Urine <2.0 mg/dL (<2.0)
--- NOTE | 2018-06-08 15:57 | XR ---
EXAMINATION TYPE: XR chest 2V DATE OF EXAM: 06/08/2018 COMPARISON: 06/05/2018 TECHNIQUE: PA and lateral views submitted. HISTORY: Hypoxia FINDINGS: The lungs are clear and there is no pneumothorax, pleural effusion, or focal pneumonia. Diffuse int erstitial pattern. No pneumothorax. Biapical pleural thickening. Heart size is normal. Atheroscleroti c change of the aorta. IMPRESSION: 1. Interstitial process be associated with interstitial pneumonitis, atypical pneumonia or early veno us congestion correlate clinically.
[2018-06-08] MEDS: MONTELUKAST 10 MG TAB PO SCH (20:31)
--- NOTE | 2018-06-08 22:55 | P.CON ---
Consult Note - . Consult date: 06/08/18 Assessment/Plan:: This is a 77-year-old female patient who presented to Hospital back on June 05 after a fall and found to have a distal angulated fracture of the radius and ulnar on the right side. Patient underwent ORIF with Dr. Boykin on June 05. At that time, patient's white count jumped up to 17.1. She has remained afebrile since admission. There was a urinalysis sent and urine culture came back with ESBL E. coli susceptible to Zosyn which she has been started on. Patient does have a listed ALLERGY to penicillin, ciprofloxacin and sulfa which she states all caused tongue swelling the patient has been able to tolerate Zosyn without any symptoms. Patient did receive clindamycin during the perioperative period. Her relates that she did have a Us catheter placed on Tuesday but this has been removed. Patient states she has been voiding without any pain or difficulty. There's been no urinary frequency or urgency. She has been ambulating without lightheadedness and dizziness and was planned for discharge home until urine culture came back as ESBL. Patient is planning to return home with her and cleared home care is in place. Patient does complain of pain to the right forearm and large dressing is in place which was not removed. Please see the counselors dictated by nurse practitioner Mrs. Marisela Shelley. Pleasant 77-year-old woman who presents for right distal fracture the radius and ulnar the required ORIF that was performed on 06/05/2018. The patient is developed a bit of leukocytosis postoperatively and workup was performed. Urinalysis is mildly abnormal and urine culture revealed evidence of ESBL E. coli. The patient relates before admission and at this time that she is without any urinary symptoms. She denies urinary frequency that is different than her baseline. She has no dysuria, hematuria, suprapubic pain or flank tenderness. She does not have a history of frequent urinary tract infections. There was a Us catheter that was in place which is been removed. Consequently a follow-up urinalysis has been requested. This is now available and is completely normal. Thus the patient is without urine symptoms and has evidence of asymptomatic bacteriuria. She will require no specific intervention or treatment for this. Follow-up with her primary care physician the outpatient setting for her routine follow-up. Leukocytosis is likely directly related to the fracture to her right arm and the severe pain that is starting to improve. There are no other obvious sources of infection at this time. I agree with evaluation, assessment and plan is dictated by nurse practitioner Mrs. Marisela Shelley.
[2018-06-09] MEDS: LEVOTHYROXINE 75 MCG TAB PO SCH (05:02)
[2018-06-09] MEDS: MORPHINE SULFATE 2 MG/ML SYRINGE IVP PRN ×2 (05:02→21:25)
[2018-06-09] MEDS: SYMBICORT 80-4.5 MCG INHALER INHALATION SCH ×2 (07:53→19:52)
[2018-06-09] MEDS: NON-FORMULARY DRUG (Omega-3 Acid Ethyl Esters [Lovaza] 2 GM) PO SCH ×2 (10:05→22:34)
[2018-06-09] MEDS: PIPERACILLIN-TAZOBACTAM 3.375 GM in DEXTROSE/WATER 1 50ML.BAG IVPB SCH (10:12)
[2018-06-09] MEDS: PANTOPRAZOLE 40 MG TABLET PO SCH (10:13)
[2018-06-09] MEDS: ACETAMINOPHEN TAB 325 MG TAB PO PRN ×2 (10:13→20:29)
[2018-06-09] MEDS: APIXABAN 5 MG TAB PO SCH ×2 (10:13→20:29)
[2018-06-09] MEDS: DOCUSATE 100 MG CAP PO SCH ×2 (10:14→20:29)
[2018-06-09] MEDS: TOPIRAMATE 25 MG TAB PO SCH ×3 (10:14→20:30)
[2018-06-09] MEDS: IPRATROPIUM BROMIDE 0.06% NASAL SPRAY (15 ML) EA NOSTRIL SCH ×4 (10:15→22:53)
[2018-06-09] MEDS: IPRATROPIUM-ALBUTEROL 3 ML NEB INHALATION PRN ×2 (11:48→16:36)
--- NOTE | 2018-06-09 11:48 | P.PN ---
Subjective Progress Note Date: 06/09/18 Patient sitting up in chair bedside, reports her pain is well-controlled. Afebrile overnight, patient still the satting on room air down to 87% per nursing Objective - Vital Signs Vital signs: Vital Signs Temp 97.9 F 06/09/18 07:47 Pulse 98 06/09/18 07:47 Resp 18 06/09/18 07:47 BP 137/60 06/09/18 07:47 Pulse Ox 91 L 06/09/18 07:47 Intake & Output 06/08/18 06/09/18 06/09/18 18:59 06:59 18:59 Intake Total 540 Balance 540 Intake: Oral 540 Other: # Voids 2 1 - Exam Constitutional: No acute distress, conversant, pleasant Eyes: Anicteric sclerae, moist conjunctiva, no lid-lag, PERRLA ENMT: NC/AT,Oropharynx clear, no erythema, exudates Neck:Supple, FROM, no masses, or JVD, No carotid bruits; No thyromegaly Lungs: Clear to auscultation, Clear to percussion, Normal respiratory effort, no accessory muscle use on 2 L nasal cannula Cardiovascular: Heart regular in rate and rhythm, No murmurs, gallops, or rubs no peripheral edema Abdominal: Soft Nontender, nom distended, no guarding, no rebound or rigidity, Normoactive bowel sounds No hepatomegaly, No splenomegaly, No palpable mass No abdominal wall hernia noted Skin: Normal temperature, tone, texture, turgor, No induration No subcutaneous nodules, No rash, lesions, No ulcers Extremities: Right upper extremity splinted, splinted in good position, able to wiggle fingers, some soft tissue swelling present in the fingers Psychiatric: Alert and oriented to person, place and time, Appropriate affect Intact judgement Neuro: Muscles Strength 5/5 in all 4 extremities, Sensation to light touch grossly present throughout, Cranial nerves II-XII grossly intact. No focal sensory deficits - Labs CBC & Chem 7: 06/07/18 07:57 06/07/18 07:57 Assessment and Plan (1) Acute respiratory failure with hypoxia Narrative/Plan: * Initially Secondary to fluid overload * Chest x-ray associated with interstitial pneumonitis versus atypical pneumonia or early venous congestion * Patient still the setting on room air * Considering antibiotics will defer to Pulmonary consulted for further recommendations Current Visit: Yes Status: Resolved Code(s): J96.01 - ACUTE RESPIRATORY FAILURE WITH HYPOXIA SNOMED Code(s): 70787368 (2) UTI due to extended-spectrum beta lactamase (ESBL) producing Escherichia coli Narrative/Plan: * Currently on day 4 of Zosyn we'll discontinue Zosyn * ID recommendations appreciated Current Visit: Yes Status: Acute Code(s): N39.0 - URINARY TRACT INFECTION, SITE NOT SPECIFIED; B96.29 - OTH ESCHERICHIA COLI THE CAUSE OF DISEASES CLASSD ELSWHR; Z16.12 - EXTENDED SPECTRUM BETA LACTAMASE (ESBL) RESISTANCE SNOMED Code(s): 347762591 (3) Fluid overload Current Visit: Yes Status: Acute Code(s): E87.70 - FLUID OVERLOAD, UNSPECIFIED SNOMED Code(s): 74182233 (4) Open right forearm fracture Narrative/Plan: * Postop day #3 status post ORIF right distal radial fracture * Pain control per primary team Current Visit: Yes Status: Acute Code(s): S52.91XB - UNSP FRACTURE OF RIGHT FOREARM, INIT FOR OPN FX TYPE I/2 SNOMED Code(s): 25988498
[2018-06-09] MEDS: FOLIC ACID 1 MG TAB PO SCH (13:09)
[2018-06-09] MEDS: MONTELUKAST 10 MG TAB PO SCH (20:29)
[2018-06-10] MEDS: MORPHINE SULFATE 2 MG/ML SYRINGE IVP PRN ×2 (03:47→12:00)
[2018-06-10] MEDS: DOCUSATE 100 MG CAP PO SCH ×2 (07:37→21:04)
[2018-06-10] MEDS: LEVOTHYROXINE 75 MCG TAB PO SCH (07:37)
[2018-06-10] MEDS: TOPIRAMATE 25 MG TAB PO SCH ×3 (07:37→21:03)
[2018-06-10] MEDS: NON-FORMULARY DRUG (Omega-3 Acid Ethyl Esters [Lovaza] 2 GM) PO SCH ×2 (07:37→21:00)
[2018-06-10] MEDS: APIXABAN 5 MG TAB PO SCH ×2 (07:37→21:03)
[2018-06-10] MEDS: PANTOPRAZOLE 40 MG TABLET PO SCH (07:37)
[2018-06-10] MEDS: SYMBICORT 80-4.5 MCG INHALER INHALATION SCH ×2 (07:44→19:12)
[2018-06-10] MEDS: FOLIC ACID 1 MG TAB PO SCH (12:00)
--- NOTE | 2018-06-10 14:01 | P.PN ---
Subjective Progress Note Date: 06/10/18 Principal diagnosis: RUE pain Patient was seen and examined. No acute events overnight. Patient requesting to go home. She denies chest pain, SOB, palpitations. She has no complaints today. Patient does not have home O2. Objective - Vital Signs Vital signs: Vital Signs Temp 98.6 F 06/10/18 07:00 Pulse 126 H 06/10/18 07:00 Resp 18 06/10/18 07:00 BP 147/66 06/10/18 07:00 Pulse Ox 88 L 06/10/18 07:00 Intake & Output 06/09/18 06/10/18 06/10/18 18:59 06:59 18:59 Intake Total 1240 720 704 Balance 1240 720 704 Intake: Oral 1240 720 704 Other: Voiding Method Toilet Toilet # Voids 3 3 - Exam General: [non toxic], [no distress], [appears at stated age] Derm: [warm], [dry] Head: [atraumatic], [normocephalic], [symmetric] Eyes: [EOMI], [no lid lag], [anicteric sclera] Mouth: [no lip lesion], [mucus membranes moist] Cardiovascular: [S1S2 reg], [no murmur], [irregular] , [tachycardia] Lungs: [Decreased breath sounds bilateral], [no rhonchi, no rales] , [no accessory muscle use] Abdominal: [soft], [ nontender to palpation], [no guarding], [no appreciable organomegaly] Ext: [no gross muscle atrophy], [no edema], [no contractures], [RUE wrapped] Psych: [Alert], [oriented], [appropriate affect] - Labs CBC & Chem 7: 06/07/18 07:57 06/07/18 07:57 Assessment and Plan Assessment: Assessment and Plan 1. Hypoxia: CXR initially showing BL infiltrate and tiny effusion, consistent with fluid overload which resolved with Lasix IV x 1 prior to Sx. Repeat CXR yesterday shows interstitial process (interstitial pneumonitis vs. atypical PNA vs. venous congestion). Echo 55-60% with LVH. Optimize COPD medications. Avoid opiates for pain control if possible. O2 per NC to maintain O2 sat > 92%. FU Pulmonology 2. RUE pain: Mechanical fall. XR shows distal angulated open Fx of the radius and ulnar RUE. s/p ORIF POD 2. Pain management with Tylenol 650 mg PO Q6 PRN, Morphine 2 mg IV Q6H PRN for breakthrough. FU PT/OT, Orthopedic Sx 3. Asymptomatic bacteruria: UA shows large LE. UCx showed multi drug resistant E. Coli. ID consulted - repeat UA clean, likely contaminant, DC all Abx. 4. Tachycardia: Sinus. Likely related to pain. Ensure adequate pain management. Avoid IVF due to overload prior to Sx. Telemetry monitoring. 5. Prerenal azotemia: BUN 25, Cr wnl. Likely due to dehydration. Hold home medication Lisinopril and HCTZ. No IVF due to overload prior to Sx. Encourage PO hydration. Avoid nephrotoxins. FU Daily BMP 6. Leukocytosis: WBC 17.1. Likely reactive due to pain. FU Daily CBC 7. A-Fib: s/p ablation. AC with Eliquis 5 mg PO BID. Telemetry monitoring. 8. COPD: Stable. Continue Symbicort 2 puff BID and Singulair 10 mg PO QHS. DuoNeb QID PRN for SOB. 9. HTN: BP 110/69. Continue HCTZ 25 mg PO QD. Monitor vitals, adjust medication as necessary. 10. Hypothyroidism: Stable. Continue Synthroid 50 mcg PO QSun + 75 mcg PO QMtoSat. 11. DVT/GI Prophylaxis: SCD boots only. Eliquis. Protonix 40 mg PO QD. DC Abx per ID for asymptomatic bacteruria. She has been cleared by Orthopedic Sx. Patient remains hypoxic and tachycardic. She has COPD and this might be her baseline. If so, she will require home oxygen on Tuesday (she is > 90% at rest). FU Pulmonology recommendations.
--- NOTE | 2018-06-10 14:48 | P.CNPUL ---
History of Present Illness Consult date: 06/10/18 Reason for consult: dyspnea, COPD, hypoxemia Chief complaint: Hypoxemic, COPD History of present illness: Pulmonary consult dated 06/10/2018 77-year-old female who apparently had surgery on her right wrist on Tuesday for fracture. She is being discharged home today. I was asked to see her before discharge as she likely has underlying COPD from 40 years of tobacco use at one pack a day. She apparently sees a american history professor in the foot area was told that she had COPD and that american history professor put her on Combivent 2 puffs 4 times a day and Advair 1 puff twice a day. I'm not sure of the Advair dose. Anyway, the american history professor and the front that she needed oxygen therapy. Prior to being discharged from the hospital, the nurses check her saturations and they're below 90%.. Even worse when she is up walking around. For that reason we are consulted. The patient will be prescribed oxygen on discharge. I listened to continue using her Combivent 2 puffs 4 times a day and Advair discus one puff twice a day. In addition, I'm asked to take home her incentive spirometer and continue to use that every hour while she is awake. She otherwise appears relatively comfortable. She denies any shortness of breath chest tightness wheezing cough or phlegm production. Review of Systems A 14 point review of system is essentially unremarkable. Although her saturations drop, she is asymptomatic. She is not noting are perceiving herself to have low saturations. This is the case even when she walks. Past Medical History Past Medical History: Atrial Fibrillation, Asthma, COPD, GERD/Reflux Additional Past Medical History / Comment(s): migraines; osteoporosis History of Any Multi-Drug Resistant Organisms: ESBL Date of last positivie culture/infection: 06/05/18 MDRO Source:: esbl urine Past Surgical History: Appendectomy, Cholecystectomy, Hysterectomy, Tonsillectomy Additional Past Surgical History / Comment(s): D&C, colonoscopy Past Anesthesia/Blood Transfusion Reactions: Motion Sickness Additional Past Anesthesia/Blood Transfusion Reaction / Comment(s): Pt states she has severe motion sickness Smoking Status: Former smoker Additional Past Alcohol Use History / Comment(s): patient was a smoker of a half a pack per day for 40 years and quit when she was 60 years of age. She denies any medical marijuana, marijuana, street drug or alcohol use. 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 She lives at home with her . There are no pets in the home but she does have contact with a great [place] next door. No recent travel. No service. - Past Family History Mother Additional Family Medical History / Comment(s): Pt states mother had severe migraines and at the age of 43yrs while hospitalized with severe migraine but does not know cause of . Father Family Medical History: Myocardial Infarction (CA) Additional Family Medical History / Comment(s): Father of a CA at the age of 54yrs. Family Additional Family Medical History / Comment(s): Patient denies any history of coronary artery disease Medications and Allergies Home Medications Medication Instructions Recorded Confirmed Type Apixaban [Eliquis] 5 mg PO BID 06/04/18 06/04/18 History Cholecalciferol (Vitamin D3) 2,000 unit PO DAILY 06/04/18 06/05/18 History [Vitamin D3] Esomeprazole Magnesium [NexIUM] 40 mg PO DAILY 06/04/18 06/04/18 History ALPRAZolam [Xanax] 0.25 mg PO HS PRN 06/05/18 06/05/18 History Benzonatate [Tessalon Perles] 200 mg PO TID PRN 06/05/18 06/05/18 History Fluticasone/Salmeterol [Advair 1 puff INHALATION RT-Q12H 06/05/18 06/05/18 History 250-50 Diskus] Folic Acid 1 mg PO DAILY 06/05/18 06/05/18 History HYDROcodone/APAP 7.5-325MG [Alexander 1 tab PO Q8H PRN 06/05/18 06/05/18 History 7.5-325] Hydrochlorothiazide [Hydrodiuril] 25 mg PO DAILY 06/05/18 06/05/18 History Ipratropium [place] 0.06%Nasal 2 spray EA NOSTRIL TID 06/05/18 06/05/18 History [Atrovent Nasal 0.06%] Ipratropium/Albuterol Sulfate 1 puff INHALATION RT-QID PRN 06/05/18 06/05/18 History [Combivent Respimat Inhaler] Levothyroxine Sodium [Synthroid] 50 mcg PO OVIEDO 06/05/18 06/05/18 History Levothyroxine Sodium [Synthroid] 75 mcg PO [id number] 06/05/18 06/05/18 History Lisinopril [Zestril] 10 mg PO DAILY 06/05/18 06/05/18 History Magnesium Oxide [Mag-Ox] 250 mg PO DAILY 06/05/18 06/05/18 History Methotrexate Sodium [Methotrexate] 20 mg PO FR 06/05/18 06/05/18 History Montelukast [Singulair] 10 mg PO HS 06/05/18 06/05/18 History [place]-3 Acid Ethyl Esters [Lovaza] 2 gm PO BID 06/05/18 06/05/18 History Topiramate [Topamax] 50 mg PO TID 06/05/18 06/05/18 History Allergies Allergy/AdvReac Type Severity Reaction Status Date / Time adhesive tape Allergy Unknown Verified 06/05/18 16:42 ciprofloxacin [From Cipro] Allergy Unknown Verified 06/05/18 16:42 epinephrine Allergy Unknown Verified 06/05/18 16:42 latex Allergy Rash/Hives Verified 06/05/18 16:42 Penicillins Allergy Unknown Verified 06/05/18 16:42 povidone-iodine Allergy Unknown Verified 06/05/18 16:42 [From Betadine] soap [From Betadine] Allergy Unknown Verified 06/05/18 16:42 Sulfa (Sulfonamide Allergy Unknown Verified 06/05/18 16:42 Antibiotics) Tetanus Vaccines and Toxoid Allergy Unknown Verified 06/05/18 16:42 Physical Exam Osteopathic Statement: *. No significant issues noted on an osteopathic structural exam other than those noted in the History and Physical/Consult. Vitals: Vital Signs Temp Pulse Pulse Pulse Resp BP Pulse Ox 06/10/18 07:00 98.6 F 126 H 18 147/66 88 L 06/10/18 00:15 16 06/10/18 00:00 98.2 F 102 H 16 147/67 94 L 06/09/18 20:00 98.8 F 93 95 18 133/62 93 L 06/09/18 16:47 95 06/09/18 16:38 95 Intake and Output 06/09/18 06/10/18 06/10/18 22:59 06:59 14:59 Intake Total 617 628 2644 Balance 439 044 9588 Intake: Oral 169 489 1099 Other: Voiding Method Toilet # Voids 1 3 2 No acute distress, oriented 3. Nasal O2 in place at 2 L. HEENT examination is grossly unremarkable. Mucous membranes are moist. No oral lesions. Neck supple. Full range of motion. No adenopathy thyromegaly or neck vein distention. Cardiovascular examination reveals regular rhythm rate. S1-S2 normal. No S3 or S4. No discernible murmur noted. Lungs reveal mostly clear breath sounds. There are a few scattered rhonchi. No wheezes or crackles. Breath sounds are diminished throughout. Breath sounds are equal bilaterally. Abdomen soft bowel sounds are heard. No masses or tenderness. Extremities are intact. No cyanosis clubbing or edema. The right wrist is wrapped in an Vic bandage. Skin is without rash or lesion. Neurologic examination is brief but nonfocal. Results - Laboratory Findings CBC and BMP: 06/07/18 07:57 06/07/18 07:57 ABG ABG pH 7.35 (7.35-7.45) 06/05/18 13:16 ABG pCO2 32 mmHg (35-45) L 06/05/18 13:16 ABG pO2 70 mmHg (83-108) L 06/05/18 13:16 ABG O2 Saturation 94.8 % (94-97) 06/05/18 13:16 PT/INR, D-dimer PT 10.5 sec (9.0-12.0) 06/04/18 20:50 INR 1.1 (<1.2) 06/04/18 20:50 Abnormal lab findings: Abnormal Labs 06/04/18 06/05/18 06/05/18 20:50 02:11 07:12 WBC MCV ABG pCO2 ABG pO2 ABG HCO3 Chloride 111 H 116 H Carbon Dioxide 21 L 19 L BUN 23 H 23 H Creatinine 1.21 H Glucose 112 H 118 H Calcium AST 46 H Urine Appearance Cloudy H Urine Protein 1+ H Urine Ketones 1+ H Ur Leukocyte Esterase Large H Urine RBC 7 H Urine WBC >182 H Urine WBC Clumps Few H Urine Bacteria Many H Urine Mucus Occasional H 06/05/18 06/05/18 06/06/18 12:46 13:16 07:14 WBC 12.1 H MCV 100.7 H ABG pCO2 32 L ABG pO2 70 L ABG HCO3 18 L Chloride Carbon Dioxide BUN Creatinine Glucose Calcium AST Urine Appearance Urine Protein Urine Ketones Ur Leukocyte Esterase Urine RBC Urine WBC Urine WBC Clumps Urine Bacteria Urine Mucus 06/06/18 06/07/18 06/07/18 07:14 07:57 07:57 WBC 17.1 H MCV ABG pCO2 ABG pO2 ABG HCO3 Chloride 112 H 110 H Carbon Dioxide 20 L 19 L BUN 26 H 25 H Creatinine Glucose Calcium 7.8 L 8.1 L AST Urine Appearance Urine Protein Urine Ketones Ur Leukocyte Esterase Urine RBC Urine WBC Urine WBC Clumps Urine Bacteria Urine Mucus - Diagnostic Findings Chest x-ray: report reviewed (Labs, x-rays and medications are reviewed.), image reviewed Assessment and Plan Assessment: Assessment Status post surgical repair of a right wrist fracture. Hypoxemic, likely related to the patient's known history of COPD. Oxygen was recommended in the past but the patient refused to get it. It will be prescribed prior to discharge on this admission. COPD, secondary to the patient's known history of 40 years of tobacco use History of atrial fibrillation History of gastroesophageal reflux disease History of migraine cephalgia History of osteoporosis Plan: Plan dated 06/10/2018 The patient will be prescribed oxygen therapy for home. We'll give it to her at 2 L/m 24 7. The patient has an appointment with her american history professor in [place], in the next couple weeks. He can then decide whether or not the patient needs oxygen long-term. I do recommend that she take incentive spirometer. Use it every hour while awake. In addition, the patient should continue with her Combivent, 2 puffs 4 times a day and Advair discus 1 puff twice a day. Additional recommendations and suggestions are forthcoming. The patient no longer smokes. We'll follow as needed. I also told the patient that I be happy to see her here should she not want to drive to [place] to see her lung doctor anymore. Time with Patient: Greater than 30
[2018-06-10] MEDS ORDERED: traMADol 50 MG TAB PO PRN (18:43)
[2018-06-10] MEDS: MONTELUKAST 10 MG TAB PO SCH (21:03)
[2018-06-10] MEDS: IPRATROPIUM BROMIDE 0.06% NASAL SPRAY (15 ML) EA NOSTRIL SCH ×3 (21:04→22:33)
[2018-06-11] MEDS: ACETAMINOPHEN TAB 325 MG TAB PO PRN ×3 (05:52→22:00)
[2018-06-11] MEDS ORDERED: LEVOTHYROXINE 50 MCG TAB PO SCH (06:30)
[2018-06-11] MEDS: SYMBICORT 80-4.5 MCG INHALER INHALATION SCH ×2 (08:04→19:23)
[2018-06-11] MEDS: APIXABAN 5 MG TAB PO SCH ×2 (08:11→21:59)
[2018-06-11] MEDS: TOPIRAMATE 25 MG TAB PO SCH ×3 (08:12→21:59)
[2018-06-11] MEDS: PANTOPRAZOLE 40 MG TABLET PO SCH (08:12)
[2018-06-11] MEDS: DOCUSATE 100 MG CAP PO SCH ×2 (08:12→21:59)
[2018-06-11] MEDS: NON-FORMULARY DRUG (Omega-3 Acid Ethyl Esters [Lovaza] 2 GM) PO SCH ×2 (08:12→22:05)
[2018-06-11] MEDS: IPRATROPIUM BROMIDE 0.06% NASAL SPRAY (15 ML) EA NOSTRIL SCH ×3 (10:02→21:59)
--- NOTE | 2018-06-11 10:37 | P.DS ---
Providers Date of admission: 06/05/18 00:10 Expected date of discharge: 06/10/18 Attending physician: Laxmi Alcantara MD Consults: 06/05/18 00:10 Consult Physician Routine Consulting Provider: Laxmi Alcantara Consult Reason/Comments: Medical clearance for surgery Do you want consulting provider notified?: Yes 06/07/18 09:58 Consult Physician Routine Consulting Provider: Shorty Lagunas Consult Reason/Comments: ESBL Do you want consulting provider notified?: Yes 06/10/18 13:56 Consult Physician Routine Consulting Provider: Montez Esqueda Consult Reason/Comments: Hypoxia Do you want consulting provider notified?: Yes Primary care physician: Derik Hawley - Discharge Diagnosis(es) (1) COPD with hypoxia Current Visit: Yes Status: Acute (2) Asymptomatic bacteriuria Current Visit: Yes Status: Acute (3) Tachycardia Current Visit: Yes Status: Acute (4) Prerenal azotemia Current Visit: Yes Status: Acute (5) Leukocytosis Current Visit: Yes Status: Acute (6) A-fib Current Visit: Yes Status: Acute (7) HTN (hypertension) Current Visit: Yes Status: Acute (8) Hypothyroidism Current Visit: Yes Status: Acute (9) Open right forearm fracture Current Visit: Yes Status: Acute Hospital Course: 77-year-old female with PMH of COPD, atrial fibrillation presents the ED after mechanical fall, caught with outstretched hands resulting in right radial and ulnar fracture. She denied any loss of consciousness or dizziness at that time. X-ray confirmed a distal angulated open fracture of the radius and ulnar bone in the right arm. Patient had an episode of hypoxia and respiratory distress prior to her surgery. She had an oxygen saturation of 88% on 5 L nasal cannula. EKG showed sinus tachycardia with no ST segment elevation, troponin was negative, H&H was stable and chest x-ray showed evidence of fluid overload. She was given a dose of IV Lasix and underwent ORIF on 06/05/2018. Her postoperative course was unremarkable regarding the surgery. She was noted however to be hypoxic chronically through her hospital stay. She was saturating as low as 82% on room air on 06/10/2018. She had no complaints however. Pulmonology was consulted at this time and recommended that the patient go home with home oxygen. She had a known history of COPD and had previously been advised to use oxygen supplementation however refused. Patient was cleared for discharge on 06/10/2018. She was unable to be discharged on 06/10/2018 because she was unable to get her home oxygen delivered to her at bedside due to insurance reasons. Patient was seen and examined on 06/11/2018 around 10:15 AM. Patient has no complaints at this time. She denies any chest pain, dizziness, shortness of breath, or palpitations. Patient is requesting to go home. General: [non toxic], [no distress], [appears at stated age] Derm: [warm], [dry] Head: [atraumatic], [normocephalic], [symmetric] Eyes: [EOMI], [no lid lag], [anicteric sclera] Mouth: [no lip lesion], [mucus membranes moist] Cardiovascular: [S1S2 reg], [no murmur], [irregular] Lungs: [Decreased breath sounds bilateral], [no rhonchi, no rales] , [no accessory muscle use] Abdominal: [soft], [ nontender to palpation], [no guarding], [no appreciable organomegaly] Ext: [no gross muscle atrophy], [no edema], [no contractures], [RUE wrapped] Psych: [Alert], [oriented], [appropriate affect] Patient has follow-up appointments with her PCP and orthopedic surgery. She is to follow-up with her front desk administrator at [place] or with Dr. Esqueda at [facility]. Pertinent Studies: CXR ABG RUE XR Echo Procedures: ORIF of the R radius and ulnar Patient Condition at Discharge: Stable Plan - Discharge Summary Discharge Rx Participant: No New Discharge Prescriptions: New Acetaminophen Tab [Tylenol] 650 mg PO Q6HR PRN tab PRN Reason: Fever And/ Or Pain Apixaban [Eliquis] 5 mg PO BID tab Continue Cholecalciferol (Vitamin D3) [Vitamin D3] 2,000 unit PO DAILY Esomeprazole Magnesium [NexIUM] 40 mg PO DAILY Apixaban [Eliquis] 5 mg PO BID Magnesium Oxide [Mag-Ox] 250 mg PO DAILY Topiramate [Topamax] 50 mg PO TID [place]-3 Acid Ethyl Esters [Lovaza] 2 gm PO BID Montelukast [Singulair] 10 mg PO HS Methotrexate Sodium [Methotrexate] 20 mg PO FR Lisinopril [Zestril] 10 mg PO DAILY Levothyroxine Sodium [Synthroid] 75 mcg PO MOTUWETHFRSA Levothyroxine Sodium [Synthroid] 50 mcg PO OVIEDO Ipratropium/Albuterol Sulfate [Combivent Respimat Inhaler] 1 puff INHALATION RT-QID PRN PRN Reason: Shortness Of Breath Ipratropium [place] 0.06%Nasal [Atrovent Nasal 0.06%] 2 spray EA NOSTRIL TID Hydrochlorothiazide [Hydrodiuril] 25 mg PO DAILY Folic Acid 1 mg PO DAILY Fluticasone/Salmeterol [Advair 250-50 Diskus] 1 puff INHALATION RT-Q12H ALPRAZolam [Xanax] 0.25 mg PO HS PRN PRN Reason: Insomnia Discontinued HYDROcodone/APAP 7.5-325MG [[place] 7.5-325] 1 tab PO Q8H PRN PRN Reason: Pain Benzonatate [Tessalon Perles] 200 mg PO TID PRN PRN Reason: Cough Discharge Medication List Apixaban [Eliquis] 5 mg PO BID 06/04/18 [History] Cholecalciferol (Vitamin D3) [Vitamin D3] 2,000 unit PO DAILY 06/04/18 [History] Esomeprazole Magnesium [NexIUM] 40 mg PO DAILY 06/04/18 [History] ALPRAZolam [Xanax] 0.25 mg PO HS PRN 06/05/18 [History] Fluticasone/Salmeterol [Advair 250-50 Diskus] 1 puff INHALATION RT-Q12H [History] Folic Acid 1 mg PO DAILY 06/05/18 [History] Hydrochlorothiazide [Hydrodiuril] 25 mg PO DAILY 06/05/18 [History] Ipratropium [place] 0.06%Nasal [Atrovent Nasal 0.06%] 2 spray EA NOSTRIL TID [History] Ipratropium/Albuterol Sulfate [Combivent Respimat Inhaler] 1 puff INHALATION RT- QID PRN 06/05/18 [History] Levothyroxine Sodium [Synthroid] 50 mcg PO OVIEDO 06/05/18 [History] Levothyroxine Sodium [Synthroid] 75 mcg PO MOTUWETHFRSA 06/05/18 [History] Lisinopril [Zestril] 10 mg PO DAILY 06/05/18 [History] Magnesium Oxide [Mag-Ox] 250 mg PO DAILY 06/05/18 [History] Methotrexate Sodium [Methotrexate] 20 mg PO FR 06/05/18 [History] Montelukast [Singulair] 10 mg PO HS 06/05/18 [History] [place]-3 Acid Ethyl Esters [Lovaza] 2 gm PO BID 06/05/18 [History] Topiramate [Topamax] 50 mg PO TID 06/05/18 [History] Acetaminophen Tab [Tylenol] 650 mg PO Q6HR PRN tab 06/10/18 [Rx] Apixaban [Eliquis] 5 mg PO BID tab 06/10/18 [Rx] Follow up Appointment(s)/Referral(s): Montez Esqueda DO [Doctor of Osteopathic Medicine] - 1 Week [facility], [NON-STAFF] - Derik Hawley MD [Primary Care Provider] - 06/12/18 11:20 am Rebel Jacobo PAC [PHYSICIAN SOAP TENDER] - 06/21/18 3:10 pm Patient Instructions/Handouts: ORIF of an Arm Fracture (DC) Activity/Diet/Wound Care/Special Instructions: Orthopedic Discharge Instructions: 1. Resume home medications 2. Keep splint covered and dry while showering 3. Avoid excess use with hand/wrist 4. Follow up at [facility] in 2 weeks Discharge Disposition: HOME WITH HOME HEALTH SERVICES Pending Studies Pending Results: CBC with PCP BMP with PCP
--- NOTE | 2018-06-11 11:24 | P.PN ---
Subjective Progress Note Date: 06/11/18 Principal diagnosis: COPD, hypoxemia Progress note dated 06/11/2018 This is a 77-year-old female who we saw yesterday in consultation. She status post fall with fracture of the right wrist. The patient has hypoxemia, likely related to the patient's known history of COPD. She has been seen by pie filling mixer in the past in the [place], [place] area. She smoked tobacco for 40 years plus. In addition, she has a history of atrial fibrillation, GERD, migraine cephalgia, and osteoporosis. We determined yesterday that the patient needed oxygen therapy on discharge.Based on her resting room air saturation and her saturation while she walked up and down the hallway. Unfortunately, they could not do the oxygen for her prior to discharge and therefore the patient was maintained overnight. Today, she is hoping to be discharged. She's feeling well. She will need the oxygen therapy. We also reviewed her breathing medications with her. She is on Combivent, 2 puffs 4 times a day and Advair Diskus, one puff twice a day. She was taking her medications wrong. She will follow-up with her pie filling mixer in [place]. Objective - Vital Signs Vital signs: Vital Signs Temp 98.7 F 06/11/18 07:00 Pulse 86 06/11/18 07:00 Resp 16 06/11/18 07:00 BP 148/68 06/11/18 07:00 Pulse Ox 92 L 06/11/18 07:00 Intake & Output 06/10/18 06/11/18 06/11/18 18:59 06:59 18:59 Intake Total 1484 1080 Balance 1484 1080 Intake: Oral 1484 1080 Other: Voiding Method Toilet Toilet # Voids 2 2 - Exam No acute distress, oriented 3. Nasal O2 in place at 2 L. No audible wheezing. No use of accessory muscles. No nasal flaring. HEENT examination is grossly unremarkable. Mucous membranes are moist. No oral lesions. Neck supple. Full range of motion. No adenopathy thyromegaly or neck vein distention. Cardiovascular examination reveals regular rhythm rate. S1-S2 normal. No S3 or S4. No discernible murmur noted. Lungs reveal mostly clear breath sounds. There are a few scattered rhonchi. No wheezes or crackles. Breath sounds are diminished throughout. Breath sounds are equal bilaterally. Breath sounds are similar to the examination from yesterday. Abdomen soft bowel sounds are heard. No masses or tenderness. Extremities are intact. No cyanosis clubbing or edema. The right wrist is wrapped in an Vic bandage. Skin is without rash or lesion. Neurologic examination is brief but nonfocal. - Labs CBC & Chem 7: 06/07/18 07:57 06/07/18 07:57 Assessment and Plan Assessment: Assessment Status post surgical repair of a right wrist fracture. Hypoxemic, likely related to the patient's known history of COPD. Oxygen was recommended in the past but the patient refused to get it. It will be prescribed prior to discharge on this admission. COPD, secondary to the patient's known history of 40 years of tobacco use History of atrial fibrillation History of gastroesophageal reflux disease History of migraine cephalgia History of osteoporosis Plan: Plan dated 06/10/2018 The patient will be prescribed oxygen therapy for home. We'll give it to her at 2 L/m 24 7. The patient has an appointment with her pie filling mixer in [place], in the next couple weeks. He can then decide whether or not the patient needs oxygen long-term. I do recommend that she take incentive spirometer. Use it every hour while awake. In addition, the patient should continue with her Combivent, 2 puffs 4 times a day and Advair discus 1 puff twice a day. Additional recommendations and suggestions are forthcoming. The patient no longer smokes. We'll follow as needed. I also told the patient that I be happy to see her here should she not want to drive to [place] to see her lung doctor anymore. Plan dated 06/11/2018 The patient has no additional blood ordered. The patient did not have another x -ray. The patient will be discharged home on oxygen 2 L/m 24 7. She'll continue on her Combivent, 2 puffs 4 times a day and Advair Diskus one puff twice a day. She'll follow-up with her lung doctor in the [place] area. No additional recommendations are made. Prognosis is generally thought to be good. Urine culture from June 05 was positive for Escherichia coli. Time with Patient: Less than 30
[2018-06-11] MEDS: FOLIC ACID 1 MG TAB PO SCH (11:47)
[2018-06-11] MEDS: MONTELUKAST 10 MG TAB PO SCH (21:59)
[2018-06-12] MEDS: LEVOTHYROXINE 75 MCG TAB PO SCH (05:22)
--- NOTE | 2018-06-12 07:41 | P.DS ---
Providers Date of admission: 06/05/18 00:10 Expected date of discharge: 06/12/18 Attending physician: Laxmi Alcantara MD Consults: 06/05/18 00:10 Consult Physician Routine Consulting Provider: Laxmi Alcantara Consult Reason/Comments: Medical clearance for surgery Do you want consulting provider notified?: Yes 06/07/18 09:58 Consult Physician Routine Consulting Provider: Shorty Lagunas Consult Reason/Comments: ESBL Do you want consulting provider notified?: Yes 06/10/18 13:56 Consult Physician Routine Consulting Provider: Montez Esqueda Consult Reason/Comments: Hypoxia Do you want consulting provider notified?: Yes Primary care physician: Derik Hawley - Discharge Diagnosis(es) (1) COPD with hypoxia Current Visit: Yes Status: Acute (2) Asymptomatic bacteriuria Current Visit: Yes Status: Acute (3) Tachycardia Current Visit: Yes Status: Acute (4) Prerenal azotemia Current Visit: Yes Status: Acute (5) Leukocytosis Current Visit: Yes Status: Acute (6) A-fib Current Visit: Yes Status: Acute (7) HTN (hypertension) Current Visit: Yes Status: Acute (8) Hypothyroidism Current Visit: Yes Status: Acute (9) Open right forearm fracture Current Visit: Yes Status: Acute Hospital Course: 77-year-old female with PMH of COPD, atrial fibrillation presents the ED after mechanical fall, caught with outstretched hands resulting in an open right radial and ulnar fracture. She denied any loss of consciousness or dizziness at that time. X-ray confirmed a distal angulated open fracture of the radius and ulnar bone in the right arm. Patient had an episode of hypoxia and respiratory distress prior to her surgery. She had an oxygen saturation of 88% on 5 L nasal cannula. EKG showed sinus tachycardia with no ST segment elevation , troponin was negative, H&H was stable and chest x-ray showed evidence of fluid overload. She was given a dose of IV Lasix and underwent ORIF on 2017. Her postoperative course was unremarkable regarding the surgery. She was noted however to be hypoxic chronically through her hospital stay. She was saturating as low as 82% on room air on 06/10/2018. She had no complaints however. Pulmonology was consulted at this time and recommended that the patient go home with home oxygen. She had a known history of COPD, and had previously been advised to use oxygen supplementation however refused. Patient was cleared for discharge on 06/10/2018. She was unable to be discharged on 06/10/2018 and 06/11/2018 because she was unable to get her home oxygen delivered to her at bedside due to insurance reasons. Patient was seen and examined on 06/12/2018 around 7:30AM. Patient has no complaints at this time. She denies any chest pain, dizziness, shortness of breath, or palpitations. Patient states she is going home today. States she smoked 1 PPD x 40 years, quit in the s. General: [non toxic], [no distress], [appears at stated age] Derm: [warm], [dry] Head: [atraumatic], [normocephalic], [symmetric] Eyes: [EOMI], [no lid lag], [anicteric sclera] Mouth: [no lip lesion], [mucus membranes moist] Cardiovascular: [S1S2 reg], [no murmur], [irregular] Lungs: [Decreased breath sounds bilateral], [no rhonchi, no rales] , [no accessory muscle use] Abdominal: [soft], [ nontender to palpation], [no guarding], [no appreciable organomegaly] Ext: [no gross muscle atrophy], [no edema], [no contractures], [RUE wrapped] Psych: [Alert], [oriented], [appropriate affect] Assessment and Plan 1. Hypoxia: CXR initially showing BL infiltrate and tiny effusion, consistent with fluid overload which resolved with Lasix IV x 1 prior to Sx. Repeat CXR yesterday shows interstitial process (interstitial pneumonitis vs. atypical PNA vs. venous congestion). Echo 55-60% with LVH. Optimize COPD medications. Avoid opiates for pain control if possible. O2 per NC to maintain O2 sat > 92%. Pulmonology consulted - known h/o COPD (40 pack year history), recommend to go home on 2L home O2. Low concern for PE - Echo does not show R heart strain, EKG shows non specific changes without symptoms (no SOB, CP or dizziness). FU Pulmonology 2. RUE pain: Mechanical fall. XR shows distal angulated open Fx of the radius and ulnar RUE. s/p ORIF. Pain management with Tylenol 650 mg PO Q6 PRN, Morphine 2 mg IV Q6H PRN for breakthrough. FU PT/OT, Orthopedic Sx 3. Asymptomatic bacteruria: UA shows large LE. UCx showed multi drug resistant E. Coli. ID consulted - repeat UA clean, likely contaminant, DC all Abx. 4. Tachycardia: Resolved. Likely related to pain and hypoxia from COPD. Ensure adequate pain management. Optimize COPD medications. Avoid IVF due to overload prior to Sx. Telemetry monitoring. 5. Prerenal azotemia: BUN 25, Cr wnl. Likely due to dehydration. Hold home medication Lisinopril and HCTZ. No IVF due to overload prior to Sx. Encourage PO hydration. Avoid nephrotoxins. FU Daily BMP 6. Leukocytosis: WBC 17.1. Likely reactive due to pain. FU Daily CBC 7. A-Fib: s/p ablation. AC with Eliquis 5 mg PO BID. Telemetry monitoring. 8. COPD: Stable. Continue Symbicort 2 puff BID and Singulair 10 mg PO QHS. DuoNeb QID PRN for SOB. 9. HTN: BP 127/85. Holding BP medications. Monitor vitals, adjust medication as necessary. 10. Hypothyroidism: Stable. Continue Synthroid 50 mcg PO QSun + 75 mcg PO QMtoSat. 11. DVT/GI Prophylaxis: SCD boots only. Eliquis. Protonix 40 mg PO QD. She has been cleared by Orthopedic Sx. Patient remains hypoxic and tachycardic. She has COPD and this might be her baseline. She has been seen by Pulmonology and been recommended to go home on home O2. She will be discharged today when she is able to get O2 at bedside. This complex DC took greater than 30 minutes. Pertinent Studies: CXR ABG RUE XR Echo Procedures: ORIF of the R radius and ulnar Patient Condition at Discharge: Stable Plan - Discharge Summary Discharge Rx Participant: No New Discharge Prescriptions: New Acetaminophen Tab [Tylenol] 650 mg PO Q6HR PRN tab PRN Reason: Fever And/ Or Pain Apixaban [Eliquis] 5 mg PO BID tab Continue Cholecalciferol (Vitamin D3) [Vitamin D3] 2,000 unit PO DAILY Esomeprazole Magnesium [NexIUM] 40 mg PO DAILY Apixaban [Eliquis] 5 mg PO BID Magnesium Oxide [Mag-Ox] 250 mg PO DAILY Topiramate [Topamax] 50 mg PO TID [place]-3 Acid Ethyl Esters [Lovaza] 2 gm PO BID Montelukast [Singulair] 10 mg PO HS Methotrexate Sodium [Methotrexate] 20 mg PO FR Lisinopril [Zestril] 10 mg PO DAILY Levothyroxine Sodium [Synthroid] 75 mcg PO MOTUWETHFRSA Levothyroxine Sodium [Synthroid] 50 mcg PO OVIEDO Ipratropium/Albuterol Sulfate [Combivent Respimat Inhaler] 1 puff INHALATION RT-QID PRN PRN Reason: Shortness Of Breath Ipratropium [place] 0.06%Nasal [Atrovent Nasal 0.06%] 2 spray EA NOSTRIL TID Hydrochlorothiazide [Hydrodiuril] 25 mg PO DAILY Folic Acid 1 mg PO DAILY Fluticasone/Salmeterol [Advair 250-50 Diskus] 1 puff INHALATION RT-Q12H ALPRAZolam [Xanax] 0.25 mg PO HS PRN PRN Reason: Insomnia Discontinued HYDROcodone/APAP 7.5-325MG [[place] 7.5-325] 1 tab PO Q8H PRN PRN Reason: Pain Benzonatate [Tessalon Perles] 200 mg PO TID PRN PRN Reason: Cough Discharge Medication List Apixaban [Eliquis] 5 mg PO BID 06/04/18 [History] Cholecalciferol (Vitamin D3) [Vitamin D3] 2,000 unit PO DAILY 06/04/18 [History] Esomeprazole Magnesium [NexIUM] 40 mg PO DAILY 06/04/18 [History] ALPRAZolam [Xanax] 0.25 mg PO HS PRN 06/05/18 [History] Fluticasone/Salmeterol [Advair 250-50 Diskus] 1 puff INHALATION RT-Q12H [History] Folic Acid 1 mg PO DAILY 06/05/18 [History] Hydrochlorothiazide [Hydrodiuril] 25 mg PO DAILY 06/05/18 [History] Ipratropium [place] 0.06%Nasal [Atrovent Nasal 0.06%] 2 spray EA NOSTRIL TID [History] Ipratropium/Albuterol Sulfate [Combivent Respimat Inhaler] 1 puff INHALATION RT- QID PRN 06/05/18 [History] Levothyroxine Sodium [Synthroid] 50 mcg PO OVIEDO 06/05/18 [History] Levothyroxine Sodium [Synthroid] 75 mcg PO MOTUWETHFRSA 06/05/18 [History] Lisinopril [Zestril] 10 mg PO DAILY 06/05/18 [History] Magnesium Oxide [Mag-Ox] 250 mg PO DAILY 06/05/18 [History] Methotrexate Sodium [Methotrexate] 20 mg PO FR 06/05/18 [History] Montelukast [Singulair] 10 mg PO HS 06/05/18 [History] [place]-3 Acid Ethyl Esters [Lovaza] 2 gm PO BID 06/05/18 [History] Topiramate [Topamax] 50 mg PO TID 06/05/18 [History] Acetaminophen Tab [Tylenol] 650 mg PO Q6HR PRN tab 06/10/18 [Rx] Apixaban [Eliquis] 5 mg PO BID tab 06/10/18 [Rx] Follow up Appointment(s)/Referral(s): Montez Esqueda DO [Doctor of Osteopathic Medicine] - 1 Week [facility], [NON-STAFF] - Derik Hawley MD [Primary Care Provider] - 06/12/18 11:20 am Rebel Jacobo PAC [PHYSICIAN BASKETBALL REFEREE] - 06/21/18 3:10 pm Patient Instructions/Handouts: ORIF of an Arm Fracture (DC) Activity/Diet/Wound Care/Special Instructions: Orthopedic Discharge Instructions: 1. Resume home medications 2. Keep splint covered and dry while showering 3. Avoid excess use with hand/wrist 4. Follow up at [facility] in 2 weeks Note to PCP: Patient has a leukocytosis of 17.1 prior to discharge. Her BMP reveals a chloride of 110, bicarb of 19 and a BUN of 25. Please obtain a CBC and BMP within 1-2 days of discharge. Discharge Disposition: HOME WITH HOME HEALTH SERVICES Pending Studies Pending Results: CBC and BMP with PCP
[2018-06-12] MEDS: DOCUSATE 100 MG CAP PO SCH (08:39)
[2018-06-12] MEDS: PANTOPRAZOLE 40 MG TABLET PO SCH (08:40)
[2018-06-12] MEDS: FOLIC ACID 1 MG TAB PO SCH (08:41)
[2018-06-12] MEDS: TOPIRAMATE 25 MG TAB PO SCH (08:41)
[2018-06-12] MEDS: IPRATROPIUM BROMIDE 0.06% NASAL SPRAY (15 ML) EA NOSTRIL SCH (08:43)
[2018-06-12] MEDS: NON-FORMULARY DRUG (Omega-3 Acid Ethyl Esters [Lovaza] 2 GM) PO SCH (08:43)
[2018-06-12 09:02] VITALS: BP 158/74; PULSE 83; RESP 18; TEMP 97.6
[2018-06-12 09:35] LABS: Calcium 8.3 mg/dL (8.4-10.2); Potassium 2.8 mmol/L (3.5-5.1)
[2018-06-12 09:37] LABS: Anisocytosis Slight; HCT 34.9 % (34.0-46.0); HGB 11.5 gm/dL (11.4-16.0); MCH 31.9 pg (25.0-35.0); MCHC 33.1 g/dL (31.0-37.0); MCV 96.5 fL (80.0-100.0); Mean Platelet Volume 7.1; Platelet Count 368 k/uL (150-450); Poikilocytosis Slight; RBC 3.61 m/uL (3.80-5.40); RDW 16.3 % (11.5-15.5); WBC 12.1 k/uL (3.8-10.6)
[2018-06-12] MEDS: APIXABAN 5 MG TAB PO SCH (09:56)
[2018-06-12] MEDS: POTASSIUM CHLORIDE ER 20 MEQ TAB.ER PO SCH ×2 (11:09→12:22)
[2018-06-12] MEDS: SYMBICORT 80-4.5 MCG INHALER INHALATION SCH (11:28)
== END 2018-06-12 12:50 | disposition home health service (06) | DRG 510 ==
LOC: EC 20:40 → 3SUR 06-05 00:10
PROVIDERS: ADMIT Internal Medicine; ATTEND Internal Medicine
PROC: 0PSH04Z Reposition Right Radius with Internal Fixation Device, Open Approach (ICD-10-PCS; principal; 2018-06-05 10:20)
DX: S52.591B Other fractures of lower end of right radius, initial encounter for open fracture type I or II (principal); J96.01 Acute respiratory failure with hypoxia; S52.601B Unspecified fracture of lower end of right ulna, initial encounter for open fracture type I or II; W01.0XXA Fall on same level from slipping, tripping and stumbling without subsequent striking against object, initial encounter; Y92.009 Unspecified place in unspecified non-institutional (private) residence as the place of occurrence of the external cause; E03.9 Hypothyroidism, unspecified; E86.0 Dehydration; E87.70 Fluid overload, unspecified; I10 Essential (primary) hypertension; I48.91 Unspecified atrial fibrillation; J44.9 Chronic obstructive pulmonary disease, unspecified; K21.9 Gastro-esophageal reflux disease without esophagitis; M81.0 Age-related osteoporosis without current pathological fracture; Z16.24 Resistance to multiple antibiotics; Z79.01 Long term (current) use of anticoagulants; Z79.51 Long term (current) use of inhaled steroids; Z82.49 Family history of ischemic heart disease and other diseases of the circulatory system; Z87.891 Personal history of nicotine dependence; Z88.0 Allergy status to penicillin; Z90.710 Acquired absence of both cervix and uterus; Z99.81 Dependence on supplemental oxygen; D72.829 Elevated white blood cell count, unspecified; G43.909 Migraine, unspecified, not intractable, without status migrainosus; Z88.2 Allergy status to sulfonamides; Z88.7 Allergy status to serum and vaccine; Z88.8 Allergy status to other drugs, medicaments and biological substances; Z88.1 Allergy status to other antibiotic agents; Z91.040 Latex allergy status; B96.20 Unspecified Escherichia coli [E. coli] as the cause of diseases classified elsewhere; R82.71 Bacteriuria; R00.0 Tachycardia, unspecified; R39.2 Extrarenal uremia; Z79.890 Hormone replacement therapy; Z79.899 Other long term (current) drug therapy
CPT/HCPCS: 29125; 36415; 36600; 70450; 71045; 71046; 72125; 80048; 80053; 81001; 81003; 82550; 82553; 82805; 83735; 84484; 85025; 85027; 85610; 85730; 87077; 87086; 87186; 93005; 93306; 94640; 94760; 96365; 96375; 99285

== ENCOUNTER 2019-06-03 16:30 | Inpatient (IN) | payer MEDICARE, BC ==
[2019-06-03] MEDS ORDERED: SODIUM CHLORIDE 0.9% 1,000 ML IV ONE ×2 (16:41)
--- NOTE | 2019-06-03 16:44 | ED ---
Altered Mental Status HPI - General Chief Complaint: Altered Mental Status Stated Complaint: AMS Time Seen by Provider: 06/03/19 16:36 Source: EMS, RN notes reviewed, old records reviewed Mode of arrival: EMS Limitations: altered mental status - History of Present Illness Initial Comments: This is a 78-year-old female the ER for evaluation she presents today with significant dementia and altered mental status. Patient unable to provide history history obtained from he patient has increasing altered mental status per transport. Apparently started on new medication. No other history known at this time MD Complaint: altered mental status, confusion, weakness -: unknown Severity: mild Consistency of Symptoms: getting worse, constant Context: history of similar presentation, other (Dementia) Associated Symptoms: weakness - Related Data Home Medications Medication Instructions Recorded Confirmed Cholecalciferol (Vitamin D3) 2,000 unit PO DAILY 06/04/18 06/03/19 [Vitamin D3] Esomeprazole Magnesium [NexIUM] 40 mg PO DAILY 06/04/18 06/03/19 Fluticasone/Salmeterol [Advair 1 puff INHALATION RT-BID 06/05/18 06/03/19 250-50 Diskus] Folic Acid 1 mg PO DAILY 06/05/18 06/03/19 Ipratropium [place] 0.06%Nasal 2 spray EA NOSTRIL TID 06/05/18 06/03/19 [Atrovent Nasal 0.06%] Ipratropium/Albuterol Sulfate 1 puff INHALATION RT-QID PRN 06/05/18 06/03/19 [Combivent Respimat Inhaler] Levothyroxine Sodium [Synthroid] 75 mcg PO DAILY 06/05/18 06/03/19 Magnesium Oxide [Mag-Ox] 250 mg PO DAILY 06/05/18 06/03/19 Methotrexate Sodium [Methotrexate] 20 mg PO FR 06/05/18 06/03/19 Montelukast [Singulair] 10 mg PO HS 06/05/18 06/03/19 [place]-3 Acid Ethyl Esters [Lovaza] 2 gm PO BID 06/05/18 06/03/19 Topiramate [Topamax] 50 mg PO BID 06/05/18 06/03/19 Fremanezumab-Vfrm [Ajovy] 225 mg SQ Q30D 06/03/19 06/03/19 Furosemide [Lasix] 20 mg PO DAILY 06/03/19 06/03/19 HYDROcodone/APAP 7.5-325MG [[place] 1 tab PO Q6H PRN 06/03/19 06/03/19 7.5-325] Lisinopril 20 mg PO DAILY 06/03/19 06/03/19 traZODone HCL 50 mg PO HS 06/03/19 06/03/19 Previous Rx's Medication Instructions Recorded Apixaban [Eliquis] 5 mg PO BID tab 06/10/18 Allergies Allergy/AdvReac Type Severity Reaction Status Date / Time adhesive tape Allergy Unknown Verified 06/03/19 17:04 ciprofloxacin [From Cipro] Allergy Unknown Verified 06/03/19 17:04 epinephrine Allergy Unknown Verified 06/03/19 17:04 latex Allergy Rash/Hives Verified 06/03/19 17:04 Penicillins Allergy Unknown Verified 06/03/19 17:04 povidone-iodine Allergy Unknown Verified 06/03/19 17:04 [From Betadine] soap [From Betadine] Allergy Unknown Verified 06/03/19 17:04 Sulfa (Sulfonamide Allergy Unknown Verified 06/03/19 17:04 Antibiotics) Tetanus Vaccines and Toxoid Allergy Unknown Verified 06/03/19 17:04 amitriptyline [From Elavil] AdvReac Confusion Verified 06/03/19 17:04 Review of Systems ROS Statement: Those systems with pertinent positive or pertinent negative responses have been documented in the HPI. ROS Other: All systems not noted in ROS Statement are negative. Past Medical History Past Medical History: Atrial Fibrillation, Asthma, COPD, GERD/Reflux Additional Past Medical History / Comment(s): migraines; osteoporosis History of Any Multi-Drug Resistant Organisms: ESBL Date of last positivie culture/infection: 06/05/18 MDRO Source:: esbl urine Past Surgical History: Appendectomy, Cholecystectomy, Hysterectomy, Tonsillectomy Additional Past Surgical History / Comment(s): D&C, colonoscopy Past Anesthesia/Blood Transfusion Reactions: Motion Sickness Additional Past Anesthesia/Blood Transfusion Reaction / Comment(s): Pt states she has severe motion sickness Past Psychological History: No Psychological Hx Reported Smoking Status: Former smoker Past Alcohol Use History: None Reported Past Drug Use History: None Reported - Past Family History Mother Additional Family Medical History / Comment(s): Pt states mother had severe migraines and at the age of 43yrs while hospitalized with severe migraine but does not know cause of . Father Family Medical History: Myocardial Infarction ([place]) Additional Family Medical History / Comment(s): Father of a [place] at the age of 54yrs. Family Additional Family Medical History / Comment(s): Patient denies any history of coronary artery disease General Exam Limitations: altered mental status General appearance: alert, in no apparent distress Head exam: Present: atraumatic, normocephalic, normal inspection Eye exam: Present: normal appearance, EOMI. Absent: scleral icterus, conjunctival injection, periorbital swelling ENT exam: Present: normal exam, mucous membranes moist Neck exam: Present: normal inspection. Absent: tenderness, meningismus, lymphadenopathy Respiratory exam: Present: normal lung sounds bilaterally. Absent: respiratory distress, wheezes, rales, rhonchi, stridor Cardiovascular Exam: Present: regular rate, normal rhythm, normal heart sounds. Absent: systolic murmur, diastolic murmur, rubs, gallop, clicks GI/Abdominal exam: Present: soft, normal bowel sounds. Absent: distended, tenderness, guarding, rebound, rigid Extremities exam: Present: normal inspection, full ROM, normal capillary refill. Absent: tenderness, pedal edema, joint swelling, calf tenderness Back exam: Present: normal inspection Neurological exam: Present: alert, oriented X3, CN II-XII intact Psychiatric exam: Present: normal affect, normal mood Skin exam: Present: warm, dry, intact, normal color. Absent: rash Course Vital Signs 06/03/19 06/03/19 16:32 18:15 Temperature 99.8 F H 100.1 F H Pulse Rate 68 110 H Respiratory 18 18 Rate Blood Pressure 143/100 133/80 O2 Sat by Pulse 100 98 Oximetry - Reevaluation(s) Reevaluation #1: 06/03/19 16:44 Record is reviewed Reevaluation #2: 06/03/19 18:53 She does develop fever here in the ER Medical Decision Making - Medical Decision Making 38 female to be admitted for evaluation. Patient presents today for evaluation of altered mental status is urinary tract infection now fever. Patient will be admitted for IV antibiotics IV hydration - Lab Data Result diagrams: 06/03/19 16:45 06/03/19 16:45 Lab Results 06/03/19 06/03/19 06/03/19 Range/Units 16:45 16:45 16:45 WBC 4.7 (3.8-10.6) k/uL RBC 3.71 L (3.80-5.40) m/uL Hgb 11.9 (11.4-16.0) gm/dL Hct 35.9 (34.0-46.0) % MCV 96.9 (80.0-100.0) fL MCH 32.0 (25.0-35.0) pg MCHC 33.0 (31.0-37.0) g/dL RDW 16.0 H (11.5-15.5) % Plt Count 177 (150-450) k/uL Neutrophils % 68 % Lymphocytes % 27 % Monocytes % 1 % Eosinophils % 3 % Basophils % 0 % Neutrophils # 3.2 (1.3-7.7) k/uL Lymphocytes # 1.3 (1.0-4.8) k/uL Monocytes # 0.0 (0-1.0) k/uL Eosinophils # 0.1 (0-0.7) k/uL Basophils # 0.0 (0-0.2) k/uL Anisocytosis Slight Macrocytosis Slight PT (9.0-12.0) sec INR (<1.2) APTT (22.0-30.0) sec Sodium 139 (137-145) mmol/L Potassium 4.2 (3.5-5.1) mmol/L Chloride 106 (98-107) mmol/L Carbon Dioxide 21 L (22-30) mmol/L Anion Gap 12 mmol/L BUN 29 H (7-17) mg/dL Creatinine 1.08 H (0.52-1.04) mg/dL Est GFR (CKD-EPI)AfAm 58 (>60 ml/min/1.73 sqM) Est GFR (CKD-EPI)NonAf 50 (>60 ml/min/1.73 sqM) Glucose 109 H (74-99) mg/dL Calcium 9.4 (8.4-10.2) mg/dL Total Bilirubin 0.8 (0.2-1.3) mg/dL AST 32 (14-36) U/L ALT 36 (9-52) U/L Alkaline Phosphatase 100 (38-126) U/L Ammonia <9 (<30) umol/L Creatine Kinase 157 H (30-135) U/L CK-MB (CK-2) (0.0-2.4) ng/mL Troponin I (0.000-0.034) ng/mL Total Protein 6.5 (6.3-8.2) g/dL Albumin 3.6 (3.5-5.0) g/dL Urine Color Urine Appearance (Clear) Urine pH (5.0-8.0) Ur Specific [place] (1.001-1.035) Urine Protein (Negative) Urine Glucose (UA) (Negative) Urine Ketones (Negative) Urine Blood (Negative) Urine Nitrite (Negative) Urine Bilirubin (Negative) Urine Urobilinogen (<2.0) mg/dL Ur Leukocyte Esterase (Negative) Urine RBC (0-5) /hpf Urine WBC (0-5) /hpf Urine Bacteria (None) /hpf Urine Mucus (None) /hpf Urine Opiates Screen (NotDetected) Ur Oxycodone Screen (NotDetected) Urine Methadone Screen (NotDetected) Ur Propoxyphene Screen (NotDetected) Ur Barbiturates Screen (NotDetected) U Tricyclic Antidepress (NotDetected) Ur Phencyclidine Scrn (NotDetected) Ur Amphetamines Screen (NotDetected) U Methamphetamines Scrn (NotDetected) U Benzodiazepines Scrn (NotDetected) Urine Cocaine Screen (NotDetected) U Marijuana (THC) Screen (NotDetected) 06/03/19 06/03/19 06/03/19 Range/Units 16:45 16:45 18:20 WBC (3.8-10.6) k/uL RBC (3.80-5.40) m/uL Hgb (11.4-16.0) gm/dL Hct (34.0-46.0) % MCV (80.0-100.0) fL MCH (25.0-35.0) pg MCHC (31.0-37.0) g/dL RDW (11.5-15.5) % Plt Count (150-450) k/uL Neutrophils % % Lymphocytes % % Monocytes % % Eosinophils % % Basophils % % Neutrophils # (1.3-7.7) k/uL Lymphocytes # (1.0-4.8) k/uL Monocytes # (0-1.0) k/uL Eosinophils # (0-0.7) k/uL Basophils # (0-0.2) k/uL Anisocytosis Macrocytosis PT 11.7 (9.0-12.0) sec INR 1.1 (<1.2) APTT 35.3 H (22.0-30.0) sec Sodium (137-145) mmol/L Potassium (3.5-5.1) mmol/L Chloride (98-107) mmol/L Carbon Dioxide (22-30) mmol/L Anion Gap mmol/L BUN (7-17) mg/dL Creatinine (0.52-1.04) mg/dL Est GFR (CKD-EPI)AfAm (>60 ml/min/1.73 sqM) Est GFR (CKD-EPI)NonAf (>60 ml/min/1.73 sqM) Glucose (74-99) mg/dL Calcium (8.4-10.2) mg/dL Total Bilirubin (0.2-1.3) mg/dL AST (14-36) U/L ALT (9-52) U/L Alkaline Phosphatase (38-126) U/L Ammonia (<30) umol/L Creatine Kinase (30-135) U/L CK-MB (CK-2) 2.4 (0.0-2.4) ng/mL Troponin I 0.033 (0.000-0.034) ng/mL Total Protein (6.3-8.2) g/dL Albumin (3.5-5.0) g/dL Urine Color Yellow Urine Appearance Clear (Clear) Urine pH 5.5 (5.0-8.0) Ur Specific [place] 1.022 (1.001-1.035) Urine Protein 1+ H (Negative) Urine Glucose (UA) Negative (Negative) Urine Ketones 1+ H (Negative) Urine Blood Negative (Negative) Urine Nitrite Positive H (Negative) Urine Bilirubin Negative (Negative) Urine Urobilinogen 4.0 (<2.0) mg/dL Ur Leukocyte Esterase Negative (Negative) Urine RBC <1 (0-5) /hpf Urine WBC 3 (0-5) /hpf Urine Bacteria Many H (None) /hpf Urine Mucus Rare H (None) /hpf Urine Opiates Screen Detected H (NotDetected) Ur Oxycodone Screen Not Detected (NotDetected) Urine Methadone Screen Not Detected (NotDetected) Ur Propoxyphene Screen Not Detected (NotDetected) Ur Barbiturates Screen Not Detected (NotDetected) U Tricyclic Antidepress Detected H (NotDetected) Ur Phencyclidine Scrn Not Detected (NotDetected) Ur Amphetamines Screen Not Detected (NotDetected) U Methamphetamines Scrn Not Detected (NotDetected) U Benzodiazepines Scrn Not Detected (NotDetected) Urine Cocaine Screen Not Detected (NotDetected) U Marijuana (THC) Screen Not Detected (NotDetected) - Radiology Data Radiology results: report reviewed (CT head negative for acute disease chest x- rays negative for acute disease), image reviewed Disposition Clinical Impression: Altered mental status, UTI (urinary tract infection), Fever Disposition: ADMITTED IP TO THIS [facility] Condition: Fair Is patient prescribed a controlled substance at d/c from ED?: No Referrals: Nonstaff,Physician [REFERRING] - 1-2 days
[2019-06-03 17:04] LABS: Anisocytosis Slight; Basophils % (A) 0 %; Eosinophils # (A) 0.1 k/uL (0-0.7); Eosinophils % (A) 3 %; HCT 35.9 % (34.0-46.0); HGB 11.9 gm/dL (11.4-16.0); Lymphocytes # (A) 1.3 k/uL (1.0-4.8); Lymphocytes % (A) 27 %; MCV 96.9 fL (80.0-100.0); Macrocytosis Slight; Mean Platelet Volume 7.9; Monocytes % (A) 1 %; Neutrophils # (A) 3.2 k/uL (1.3-7.7); Neutrophils % (A) 68 %; Platelet Count 177 k/uL (150-450); RBC 3.71 m/uL (3.80-5.40); WBC 4.7 k/uL (3.8-10.6)
--- NOTE | 2019-06-03 17:11 | CT ---
EXAMINATION TYPE: CT brain wo con DATE OF EXAM: 06/03/2019 COMPARISON: 06/04/2018 HISTORY: Altered mental status. CT DLP: 1074.4 mGycm Automated exposure control for dose reduction was used. FINDINGS: There is cerebral cortical atrophy. There is no mass effect nor midline shift. There is no sign of in tracranial hemorrhage. There is mild hypodensity in the periventricular white matter. Calvarium is in tact. There is minimal mucosal thickening in the ethmoid sinus. IMPRESSION: CEREBRAL ATROPHY AND MILD CHRONIC SMALL VESSEL ISCHEMIA. NO ACUTE INTRACRANIAL ABNORMALITY. MILD ETHM OID SINUSITIS. NO SIGNIFICANT CHANGE.
[2019-06-03 17:12] LABS: INR 1.1 (<1.2); Partial Thromboplastin Time 35.3 sec (22.0-30.0); Prothrombin Time 11.7 sec (9.0-12.0)
[2019-06-03 17:14] LABS: Albumin 3.6 g/dL (3.5-5.0); Calcium 9.4 mg/dL (8.4-10.2); Potassium 4.2 mmol/L (3.5-5.1); Total Bilirubin 0.8 mg/dL (0.2-1.3); Total Protein 6.5 g/dL (6.3-8.2)
--- NOTE | 2019-06-03 17:14 | XR ---
EXAMINATION TYPE: XR chest 2V DATE OF EXAM: 06/03/2019 COMPARISON: 06/08/2018 HISTORY: Altered mental status TECHNIQUE: Frontal and lateral views of the chest are obtained. FINDINGS: Heart is normal. There is some coarsening of interstitial markings on the right side. The left lung is fairly clear. There is no heart failure. There are chest leads. IMPRESSION: There is a diffuse interstitial pneumonic infiltrate on the right side similar to old ex am. No heart failure. No definite pleural fluid.
[2019-06-03 17:33] LABS: Creatine Kinase MB 2.4 ng/mL (0.0-2.4); Troponin I 0.033 ng/mL (0.000-0.034)
[2019-06-03 18:38] LABS: Appearance,Urine Clear (Clear); Bacteria,Urine Many /hpf; Bilirubin,Urine Negative (Negative); Blood,Urine Negative (Negative); Color,Urine Yellow; Glucose,Urine (UA) Negative (Negative); Ketones,Urine 1+ (Negative); Leukocyte Esterase,Urine Negative (Negative); Mucus,Urine Rare /hpf; Nitrite,Urine Positive (Negative); PH, Urine 5.5 (5.0-8.0); Protein,Urine 1+ (Negative); RBC,Urine <1 /hpf (0-5); Specific Gravity,Urine 1.022 (1.001-1.035); WBC,Urine 3 /hpf (0-5)
[2019-06-03 18:47] LABS: Amphetamine Screen,Urine Not Detected (NotDetected); Barbiturate Screen,Urine Not Detected (NotDetected); Benzodiazepines Screen,Urine Not Detected (NotDetected); Cocaine Screen,Urine Not Detected (NotDetected); Methadone Screen, Urine Not Detected (NotDetected); Opiate Screen,Urine Detected (NotDetected); Oxycodone Screen, Urine Not Detected (NotDetected); Phencyclidine Screen,Urine Not Detected (NotDetected); Tricyclic Antidepressant,Urine Detected (NotDetected); Urn Cannabinoid Scrn Not Detected (NotDetected)
[2019-06-03] MEDS ORDERED: methylPREDNISolone SOD SUCCI 125 MG/2 ML VIAL IV STA (18:54)
[2019-06-03] MEDS: SODIUM CHLORIDE 0.9% 1,000 ML IV SCH (20:04)
[2019-06-03] MEDS ORDERED: HYDROcodone/APAP 7.5-325MG 1 EACH TAB PO PRN (21:12)
[2019-06-03] MEDS ORDERED: IPRATROPIUM-ALBUTEROL 3 ML NEB INHALATION PRN (21:12)
[2019-06-03] MEDS ORDERED: OMEGA ACID ETHYL ESTERS PO SCH (21:15)
[2019-06-03] MEDS: TOPIRAMATE 25 MG TAB PO SCH (21:54)
[2019-06-03] MEDS: MONTELUKAST 10 MG TAB PO SCH (21:54)
[2019-06-03] MEDS: traZODone HCL 50 MG TAB PO SCH (21:54)
[2019-06-03] MEDS: IPRATROPIUM BROMIDE 0.06% NASAL SPRAY (15 ML) EA NOSTRIL SCH (22:49)
[2019-06-03] MEDS: methylPREDNISolone SOD SUCCI 125 MG/2 ML VIAL IV SCH (22:49)
[2019-06-04] MEDS: methylPREDNISolone SOD SUCCI 125 MG/2 ML VIAL IV SCH ×4 (05:00→23:33)
[2019-06-04] MEDS: SODIUM CHLORIDE 0.9% 1,000 ML IV SCH ×2 (05:02→16:14)
[2019-06-04] MEDS ORDERED: ENOXAPARIN 40 MG/0.4 ML SYRINGE SQ SCH (09:00)
[2019-06-04] MEDS: IPRATROPIUM BROMIDE 0.06% NASAL SPRAY (15 ML) EA NOSTRIL SCH ×3 (10:11→23:35)
[2019-06-04] MEDS: TOPIRAMATE 25 MG TAB PO SCH ×2 (10:12→21:20)
[2019-06-04 12:03] LABS: Glucose,Whole Blood 133 mg/dL (75-99)
[2019-06-04] MEDS: APIXABAN 5 MG TAB PO SCH ×2 (12:25→21:20)
[2019-06-04] MEDS: INSULIN ASPART (NovoLOG) 100 UNIT/ML VIAL SQ SCH ×3 (12:36→21:20)
[2019-06-04] MEDS: LEVOTHYROXINE 75 MCG TAB PO SCH (12:37)
[2019-06-04] MEDS: MAGNESIUM OXIDE 400 MG TAB PO SCH (12:37)
[2019-06-04] MEDS: PANTOPRAZOLE 40 MG TABLET PO SCH (12:37)
[2019-06-04] MEDS: FOLIC ACID 1 MG TAB PO SCH (12:37)
--- NOTE | 2019-06-04 14:55 | P.HPIM ---
History of Present Illness H&P Date: 06/04/19 Chief Complaint: Altered mental status changes Ms. Duncan is a 78-year-old female with a past medical history of atrial fibrillation on anticoagulation, COPD, GERD, osteoporosis , rheumatoid arthritis on methotrexate and Ajovy , coming in to the hospital for altered mental status changes. Patient is a poor historian. is at the bedside, provided most of the history. He states for the past couple of days she has been complaining of increased frequency of urination. She had a sense of incomplete emptying of her bladder. She was also complaining of cough with mild difficulty in breathing. Cough is mostly dry and occasional sputum production. She felt that she had a fever but did not have a recorded temperature. Her noticed that she was getting more confused and also getting weaker for the past couple of days. Patient also complains of chest soreness. No chest pain. She denies having any orthopnea PND. No swelling of her lower extremities. No abdominal pain nausea vomiting or diarrhea. Patient denies bleeding from any site. In the emergency room at the time of admission, patient was having tachycardia and a recorded temperature of 100.1. She had urine analysis showing many bacteria and positive for nitrites. Her creatinine is elevated at 1.08. CT of the head was showing cerebral atrophy in mild chronic small vessel ischemia. No acute intracranial abnormality. Chest x-ray showing diffuse interstitial pneumonic infiltrate on the right side. Review of Systems REVIEW OF SYSTEMS: PSYCH: No anxiety or depression NEURO:No c/o weakness of the extremties, No facial droop, No speech abnormalities. VASCULAR: no edema HEMATOLOGIC: No history of easy bleeding and bruising . No recent infections . RESPIRATORY: No cough, No SOB, No chest discomfort. IMMUNE: No infections INTEGUMENT: no rashes OPHTHALMOLOGIC: No blurry vision and no eye discharge : As per HPI [employer]GER: No bleeding PV CARDIAC: As per HPI MUSCULOSKELETAL : Generalized weakness and fatigue GI: No abdominal pain, Nausea or vomiting. No constipation or diarrhea. All 13 review of systems done and negative except for ones mentioned above Past Medical History Past Medical History: Atrial Fibrillation, Asthma, COPD, GERD/Reflux Additional Past Medical History / Comment(s): migraines; osteoporosis History of Any Multi-Drug Resistant Organisms: ESBL Date of last positivie culture/infection: 06/05/18 MDRO Source:: esbl urine Past Surgical History: Appendectomy, Cholecystectomy, Hysterectomy, Tonsillectomy Additional Past Surgical History / Comment(s): D&C, colonoscopy, left knee scope, right arm surgery Past Anesthesia/Blood Transfusion Reactions: Motion Sickness Additional Past Anesthesia/Blood Transfusion Reaction / Comment(s): Pt states she has severe motion sickness Past Psychological History: No Psychological Hx Reported Additional Psychological History / Comment(s): Pt resides with her spouse of 47yrs. She uses no assistive device. She no longer drives, her spouse drives Smoking Status: Former smoker Past Alcohol Use History: None Reported Additional Past Alcohol Use History / Comment(s): patient was a smoker of a half a pack per day for 40 years and quit when she was 60 years of age. She denies any medical marijuana, marijuana, street drug or alcohol use. She is retired and worked in the past most recently at [employer] for the past 10-12 years before senior living. She lives at home with her . There are no pets in the home but she does have contact with a great [place] next door. No recent travel. No service. Past Drug Use History: None Reported - Past Family History Mother Additional Family Medical History / Comment(s): Pt states mother had severe migraines and at the age of 43yrs while hospitalized with severe migraine but does not know cause of . Father Family Medical History: Myocardial Infarction ([place]) Additional Family Medical History / Comment(s): Father of a [place] at the age of 54yrs. Family Additional Family Medical History / Comment(s): Patient denies any history of coronary artery disease Medications and Allergies Home Medications Medication Instructions Recorded Confirmed Type Cholecalciferol (Vitamin D3) 2,000 unit PO DAILY 06/04/18 06/03/19 History [Vitamin D3] Esomeprazole Magnesium [NexIUM] 40 mg PO DAILY 06/04/18 06/03/19 History Fluticasone/Salmeterol [Advair 1 puff INHALATION RT-BID 06/05/18 06/03/19 History 250-50 Diskus] Folic Acid 1 mg PO DAILY 06/05/18 06/03/19 History Ipratropium [place] 0.06%Nasal 2 spray EA NOSTRIL TID 06/05/18 06/03/19 History [Atrovent Nasal 0.06%] Ipratropium/Albuterol Sulfate 1 puff INHALATION RT-QID PRN 06/05/18 06/03/19 History [Combivent Respimat Inhaler] Levothyroxine Sodium [Synthroid] 75 mcg PO DAILY 06/05/18 06/03/19 History Magnesium Oxide [Mag-Ox] 250 mg PO DAILY 06/05/18 06/03/19 History Methotrexate Sodium [Methotrexate] 20 mg PO FR 06/05/18 06/03/19 History Montelukast [Singulair] 10 mg PO HS 06/05/18 06/03/19 History [place]-3 Acid Ethyl Esters [Lovaza] 2 gm PO BID 06/05/18 06/03/19 History Topiramate [Topamax] 50 mg PO BID 06/05/18 06/03/19 History Apixaban [Eliquis] 5 mg PO BID tab 06/10/18 06/03/19 Rx Fremanezumab-Vfrm [Ajovy] 225 mg SQ Q30D 06/03/19 06/03/19 History Furosemide [Lasix] 20 mg PO DAILY 06/03/19 06/03/19 History HYDROcodone/APAP 7.5-325MG [[place] 1 tab PO Q6H PRN 06/03/19 06/03/19 History 7.5-325] Lisinopril 20 mg PO DAILY 06/03/19 06/03/19 History traZODone HCL 50 mg PO HS 06/03/19 06/03/19 History Allergies Allergy/AdvReac Type Severity Reaction Status Date / Time adhesive tape Allergy Unknown Verified 06/03/19 17:04 ciprofloxacin [From Cipro] Allergy Unknown Verified 06/03/19 17:04 epinephrine Allergy Unknown Verified 06/03/19 17:04 latex Allergy Rash/Hives Verified 06/03/19 17:04 Penicillins Allergy Unknown Verified 06/03/19 17:04 povidone-iodine Allergy Unknown Verified 06/03/19 17:04 [From Betadine] soap [From Betadine] Allergy Unknown Verified 06/03/19 17:04 Sulfa (Sulfonamide Allergy Unknown Verified 06/03/19 17:04 Antibiotics) Tetanus Vaccines and Toxoid Allergy Unknown Verified 06/03/19 17:04 amitriptyline [From Elavil] AdvReac Confusion Verified 06/03/19 17:04 Physical Exam Vitals: Vital Signs Temp Pulse Pulse Resp BP BP Pulse Ox 06/04/19 07:10 97.6 F 81 16 124/75 95 06/04/19 01:11 98.8 F 92 18 109/71 94 L 06/03/19 19:35 99.8 F H 107 H 16 138/82 97 06/03/19 19:00 99.8 F H 104 H 18 130/84 98 06/03/19 18:15 100.1 F H 110 H 18 133/80 98 06/03/19 16:32 99.8 F H 68 18 143/100 100 Intake and Output 06/03/19 06/04/19 06/04/19 22:59 06:59 14:59 Intake Total 480 480 890 Balance 480 480 890 Intake: Intake, IV Titration 650 Amount Sodium Chloride 0.9% 1, 600 000 ml @ 100 mls/hr IV . Q10H [facility] Rx#:[id number] cefTRIAXone 1 gm In 50 Sodium Chloride 0.9% 50 ml @ 100 mls/hr IVPB Q24HR [facility] Rx#:[id number] Oral 480 480 240 Other: Voiding Method Incontinent Toilet Bedpan Incontinent # Voids 2 3 Weight 63.503 kg GEN. APPEARANCE: Patient is awake. No acute distress. HEAD EXAM: atraumatic, normocephalic, normal inspection EYE EXAM: Pupils round and reactive to light. No pallor. No icterus ENT EXAM: normal exam, mucous membranes moist NECK EXAM: No JVD. RESPIRATORY EXAM: Bilateral breath sounds are positive. Coarse breath sounds in all lung paez. No significant wheezing CARDIOVASCULAR EXAM: S1 and S2 heard. Nausea and sounds. GI/ABDOMINAL EXAM: soft, normal bowel sounds. Nondistended. No tenderness. No guarding or rigidity. EXTREMITIES EXAM: Tenderness. No lower extremity edema. BACK EXAM: Prostate for bilateral paraspinal tenderness NEUROLOGICAL EXAM: alert, oriented X2 , no focal neurological deficits PSYCHIATRIC EXAM: normal affect, normal mood SKIN EXAM: frail Results CBC & Chem 7: 06/03/19 16:45 06/03/19 16:45 Labs: Abnormal Lab Results - Last 24 Hours (Table) 06/03/19 06/03/19 06/03/19 Range/Units 16:45 16:45 16:45 RBC 3.71 L (3.80-5.40) m/uL RDW 16.0 H (11.5-15.5) % APTT 35.3 H (22.0-30.0) sec Carbon Dioxide 21 L (22-30) mmol/L BUN 29 H (7-17) mg/dL Creatinine 1.08 H (0.52-1.04) mg/dL Glucose 109 H (74-99) mg/dL POC Glucose (mg/dL) (75-99) mg/dL Creatine Kinase 157 H (30-135) U/L Urine Protein (Negative) Urine Ketones (Negative) Urine Nitrite (Negative) Urine Bacteria (None) /hpf Urine Mucus (None) /hpf Urine Opiates Screen (NotDetected) U Tricyclic Antidepress (NotDetected) 06/03/19 06/04/19 Range/Units 18:20 12:01 RBC (3.80-5.40) m/uL RDW (11.5-15.5) % APTT (22.0-30.0) sec Carbon Dioxide (22-30) mmol/L BUN (7-17) mg/dL Creatinine (0.52-1.04) mg/dL Glucose (74-99) mg/dL POC Glucose (mg/dL) 133 H (75-99) mg/dL Creatine Kinase (30-135) U/L Urine Protein 1+ H (Negative) Urine Ketones 1+ H (Negative) Urine Nitrite Positive H (Negative) Urine Bacteria Many H (None) /hpf Urine Mucus Rare H (None) /hpf Urine Opiates Screen Detected H (NotDetected) U Tricyclic Antidepress Detected H (NotDetected) Thrombosis Risk Factor Assmnt - Choose All That Apply Each Factor Represents 1 point: Abnormal pulmonary function (COPD) Each Risk Factor Represents 3 Points: Age 75 years or older, History of DVT/PE Thrombosis Risk Factor Assessment Total Risk Factor Score: 7 Thrombosis Risk Factor Assessment Level: High Risk Assessment and Plan Assessment: ASSESSMENT Sepsis- source of infection UTI and right sided pneumonia History of ESBL UTI in the past Acute kidney injury- prerenal Chronic atrial fibrillation on anticoagulation COPD Migraine headaches Hypertension Osteoporosis History of right arm surgery Former smoker Rheumatoid arthritis on methotrexate PLAN: Patient is a dose of ceftriaxone in the ED. On reviewing her past medical history is patient has ESBL UTI approximately 1 year back. Patient has multiple drug ALLERGIES. So ID Dr. Bass has been consulted. Patient has been started on breathing treatments and Solu-Medrol. Protonix for GI prophylaxis. Patient is Apixaban for anticoagulation for her A. fib. Continue with the rest of her home medication regimen. The treatment plan was discussed in detail with the patient and at the bedside. Further compressions to follow depending on the progress of the patient.
[2019-06-04] MEDS: IPRATROPIUM-ALBUTEROL 3 ML NEB INHALATION PRN (15:50)
[2019-06-04 17:29] LABS: Glucose,Whole Blood 152 mg/dL (75-99)
[2019-06-04 20:11] LABS: Glucose,Whole Blood 156 mg/dL (75-99)
[2019-06-04] MEDS: SYMBICORT 80-4.5 MCG INHALER INHALATION SCH (21:11)
[2019-06-04 21:14] LABS: Glucose,Whole Blood 149 mg/dL (75-99)
[2019-06-04] MEDS: MONTELUKAST 10 MG TAB PO SCH (21:20)
[2019-06-04] MEDS: traZODone HCL 50 MG TAB PO SCH (21:20)
--- NOTE | 2019-06-05 00:09 | P.CONS ---
History of Present Illness - Reason for Consult Consult date: 06/04/19 Fever question of UTI and history of ESBL Requesting physician: Ibis Mccormack - Chief Complaint Mental status changes 2 days - History of Present Illness Patient is a 78 year old female with a past medical history significant for dementia and history of recurrent UTIs and pneumonia and did have ESBL E. coli urinary tract infection about a year ago patient has been brought into the ER at [facility] yesterday with chief complaints of mental status changes and increasing confusion which apparently has been going on for a new group before the patient has been brought to the hospital patient also noticed to have a dry irritating cough which has been moderate intensity but is not bringing up significant amounts of sputum patient complaining of some chest discomfort but unable to quantify it any further no nausea no vomiting or any diarrhea and no choking on the food patient herself denies any urinary symptoms of any burning frequency or suprapubic or flank pain with the [place] the patient was evaluated by the physician on presentation patient did have low- grade fever 100.1 white count was not significantly elevated patient did have a chest x-ray showed diffuse infiltrate right suggestive of pneumonia patient UA only shows nitrate no significant WBC, leukocyte esterase, patient was started on Rocephin and infectious disease was consulted for further determination of antibiotic most information has been obtained from review the chart and talking to her as the patient is herself adequate historian Review of Systems Positive points has been mentioned in HPI complete review could not be obtained because of the patient mental status Past Medical History Past Medical History: Atrial Fibrillation, Asthma, COPD, GERD/Reflux Additional Past Medical History / Comment(s): migraines; osteoporosis History of Any Multi-Drug Resistant Organisms: ESBL Year Discovered:: 06/05/18 MDRO Source:: esbl urine Past Surgical History: Appendectomy, Cholecystectomy, Hysterectomy, Tonsillectomy Additional Past Surgical History / Comment(s): D&C, colonoscopy, left knee scope, right arm surgery Past Anesthesia/Blood Transfusion Reactions: Motion Sickness Additional Past Anesthesia/Blood Transfusion Reaction / Comm: Pt states she has severe motion sickness Past Psychological History: No Psychological Hx Reported Additional Psychological History / Comment(s): Pt resides with her spouse of 47yrs. She uses no assistive device. She no longer drives, her spouse drives Smoking Status: Former smoker Past Alcohol Use History: None Reported Additional Past Alcohol Use History / Comment(s): patient was a smoker of a half a pack per day for 40 years and quit when she was 60 years of age. She denies any medical marijuana, marijuana, street drug or alcohol use. She is retired and worked in the past most recently at [employer] for the past 10-12 years before [employer]. She lives at home with her . There are no pets in the home but she does have contact with a great [place] next door. No recent travel. No service. Past Drug Use History: None Reported - Past Family History Mother Additional Family Medical History / Comment(s): Pt states mother had severe migraines and at the age of 43yrs while hospitalized with severe migraine but does not know cause of . Father Family Medical History: Myocardial Infarction (OK) Additional Family Medical History / Comment(s): Father of a [place] at the age of 54yrs. Family Additional Family Medical History / Comment(s): Patient denies any history of coronary artery disease Medications and Allergies Home Medications Medication Instructions Recorded Confirmed Type Cholecalciferol (Vitamin D3) 2,000 unit PO DAILY 06/04/18 06/03/19 History [Vitamin D3] Esomeprazole Magnesium [NexIUM] 40 mg PO DAILY 06/04/18 06/03/19 History Fluticasone/Salmeterol [Advair 1 puff INHALATION RT-BID 06/05/18 06/03/19 History 250-50 Diskus] Folic Acid 1 mg PO DAILY 06/05/18 06/03/19 History Ipratropium [place] 0.06%Nasal 2 spray EA NOSTRIL TID 06/05/18 06/03/19 History [Atrovent Nasal 0.06%] Ipratropium/Albuterol Sulfate 1 puff INHALATION RT-QID PRN 06/05/18 06/03/19 History [Combivent Respimat Inhaler] Levothyroxine Sodium [Synthroid] 75 mcg PO DAILY 06/05/18 06/03/19 History Magnesium Oxide [Mag-Ox] 250 mg PO DAILY 06/05/18 06/03/19 History Methotrexate Sodium [Methotrexate] 20 mg PO FR 06/05/18 06/03/19 History Montelukast [Singulair] 10 mg PO HS 06/05/18 06/03/19 History [place]-3 Acid Ethyl Esters [Lovaza] 2 gm PO BID 06/05/18 06/03/19 History Topiramate [Topamax] 50 mg PO BID 06/05/18 06/03/19 History Apixaban [Eliquis] 5 mg PO BID tab 06/10/18 06/03/19 Rx Fremanezumab-Vfrm [Ajovy] 225 mg SQ Q30D 06/03/19 06/03/19 History Furosemide [Lasix] 20 mg PO DAILY 06/03/19 06/03/19 History HYDROcodone/APAP 7.5-325MG [[place] 1 tab PO Q6H PRN 06/03/19 06/03/19 History 7.5-325] Lisinopril 20 mg PO DAILY 06/03/19 06/03/19 History traZODone HCL 50 mg PO HS 06/03/19 06/03/19 History Allergies Allergy/AdvReac Type Severity Reaction Status Date / Time adhesive tape Allergy Unknown Verified 06/03/19 17:04 ciprofloxacin [From Cipro] Allergy Unknown Verified 06/03/19 17:04 epinephrine Allergy Unknown Verified 06/03/19 17:04 latex Allergy Rash/Hives Verified 06/03/19 17:04 Penicillins Allergy Unknown Verified 06/03/19 17:04 povidone-iodine Allergy Unknown Verified 06/03/19 17:04 [From Betadine] soap [From Betadine] Allergy Unknown Verified 06/03/19 17:04 Sulfa (Sulfonamide Allergy Unknown Verified 06/03/19 17:04 Antibiotics) Tetanus Vaccines and Toxoid Allergy Unknown Verified 06/03/19 17:04 amitriptyline [From Elavil] AdvReac Confusion Verified 06/03/19 17:04 Physical Exam Vitals: Vital Signs Temp Pulse Pulse Resp BP Pulse Ox 06/04/19 19:54 98.5 F 84 17 117/67 96 06/04/19 19:45 16 06/04/19 17:14 97.4 F L 105 H 18 141/81 99 06/04/19 15:59 87 06/04/19 15:44 89 06/04/19 15:00 97.9 F 93 16 144/83 94 L 06/04/19 07:10 97.6 F 81 16 124/75 95 09/23/19 01:11 98.8 F 92 18 109/71 94 L Intake and Output 06/04/19 06/04/19 06/05/19 14:59 22:59 06:59 Intake Total 890 296 Balance 890 296 Intake: Intake, IV Titration 650 Amount Sodium Chloride 0.9% 1, 600 000 ml @ 100 mls/hr IV . Q10H JUANCHO Rx#:[id number] cefTRIAXone 1 gm In 50 Sodium Chloride 0.9% 50 ml @ 100 mls/hr IVPB Q24HR JUANCHO Rx#:[id number] Oral 240 296 Other: Voiding Method Bedpan Toilet # Voids 3 1 # Bowel Movements 1 GENERAL DESCRIPTION: Elderly female lying in bed, no distress. No tachypnea or accessory muscle of respiration use. HEENT: Shows Pallor , no scleral icterus. Oral mucous membrane is dry. No pharyngeal erythema or thrush NECK: Trachea central, no thyromegaly. LUNGS: Unlabored breathing. Decreased breath sound at the base. No wheeze or crackle. HEART: S1, S2, regular rate and rhythm. No loud murmur ABDOMEN: Soft, no tenderness , guarding or rigidity, no organomegaly EXTREMITIES: No edema of feet. SKIN: No rash, no masses palpable. NEUROLOGICAL: The patient is awake, alert, oriented x2, mood and affect normal. Results CBC & Chem 7: 06/03/19 16:45 06/03/19 16:45 Labs: Abnormal Lab Results - Last 24 Hours (Table) 06/04/19 06/04/19 06/04/19 Range/Units 12:01 17:28 20:08 POC Glucose (mg/dL) 133 H 152 H 156 H (75-99) mg/dL 06/04/19 Range/Units 21:12 POC Glucose (mg/dL) 149 H (75-99) mg/dL Microbiology - Last 24 Hours (Table) 06/04/19 15:00 Urine Culture - Preliminary Urine,Clean Catch Assessment and Plan Assessment: 1-patient presented to hospital with mental status changes in this patient who did have cough and some shortness of breath with right-sided infiltrate suspicious for likely for pneumonia with a source of her symptoms she denies urinary symptoms and her UA wasn't significantly positive making related to be less likely 2-Patient with multiple antibiotics ALLERGIES that will limit the number of antibiotic safe to use Plan: 1-we will try to obtain sputum for Gram stain and culture 2-Rocephin 1 g daily and add Zithromax 250 daily 3-repeat a chest x-ray PA and lateral tomorrow 4-gentle IV fluid we will follow on clinical condition and culture to further adjust medication if needed Thank you for this consultation will follow this patient along with you Time with Patient: Greater than 30
[2019-06-05] MEDS: SODIUM CHLORIDE 0.9% 1,000 ML IV SCH (02:31)
[2019-06-05] MEDS: methylPREDNISolone SOD SUCCI 125 MG/2 ML VIAL IV SCH (05:35)
[2019-06-05] MEDS: LEVOTHYROXINE 75 MCG TAB PO SCH (05:35)
[2019-06-05 07:16] LABS: Glucose,Whole Blood 145 mg/dL (75-99)
--- NOTE | 2019-06-05 08:15 | XR ---
EXAMINATION TYPE: XR chest 2V DATE OF EXAM: 06/05/2019 COMPARISON: 06/03/2019 TECHNIQUE: PA and lateral views submitted. HISTORY: Fever and pneumonia FINDINGS: Heart is stable. Coarsened interstitium noted with surgical clips in the right upper quadrant. Subseg mental changes of consolidation at both lung bases. Hypertrophic and degenerative change of the spine . Hyperinflation of the lungs suggests COPD. IMPRESSION: 1. Stable interstitial pattern could be on the basis of interstitial pneumonitis. Correlate clinicall y. No significant interval change. Underlying chronic interstitial lung disease in the differential d iagnosis. 2. Vague nodularity right lower lobe measuring 1.1 cm. Underlying pulmonary nodule not excluded. Bila teral oblique views of the chest could be obtained.
[2019-06-05] MEDS: INSULIN ASPART (NovoLOG) 100 UNIT/ML VIAL SQ SCH ×4 (08:24→20:19)
[2019-06-05] MEDS: IPRATROPIUM-ALBUTEROL 3 ML NEB INHALATION PRN ×2 (08:40→20:07)
[2019-06-05] MEDS: SYMBICORT 80-4.5 MCG INHALER INHALATION SCH ×2 (08:40→20:07)
[2019-06-05] MEDS: AZITHROMYCIN 250 MG TAB PO SCH (08:54)
[2019-06-05] MEDS: TOPIRAMATE 25 MG TAB PO SCH ×2 (08:54→20:22)
[2019-06-05] MEDS: MAGNESIUM OXIDE 400 MG TAB PO SCH (08:55)
[2019-06-05] MEDS: IPRATROPIUM BROMIDE 0.06% NASAL SPRAY (15 ML) EA NOSTRIL SCH ×3 (08:55→20:22)
[2019-06-05] MEDS: FOLIC ACID 1 MG TAB PO SCH (08:55)
[2019-06-05] MEDS: APIXABAN 5 MG TAB PO SCH ×2 (08:55→20:22)
[2019-06-05] MEDS: PANTOPRAZOLE 40 MG TABLET PO SCH (08:55)
[2019-06-05 11:47] LABS: Glucose,Whole Blood 139 mg/dL (75-99)
--- NOTE | 2019-06-05 15:15 | PN ---
PROGRESS NOTE DATE OF SERVICE: 06/05/2019 REASON FOR FOLLOWUP: 1. Fever, possible pneumonia. 2. Groin area cutaneous candidiasis. INTERVAL HISTORY: The patient is currently afebrile. Patient has been breathing more comfortably. Patient did have a cough, congested, but not bringing up any sputum. No chest pain. No nausea, vomiting. No abdominal pain. No diarrhea. No urinary symptoms. He did have a rash in the bilateral groin area with an open wound but not showing any redness or any drainage. PHYSICAL EXAMINATION: Blood pressure 122/90 with a pulse of 84, temperature 97.3. She is 94% on 2 L nasal cannula. General description is an elderly female, lying in bed in no distress. RESPIRATORY SYSTEM: Unlabored breathing with decreased breath sounds at the base, no wheeze. HEART: S1, S2. Regular rate and rhythm. ABDOMEN: Soft, no tenderness. LABS: Chest x-ray did show interstitial pattern and right lower lobe infiltrate. Blood culture has been negative. Urine was negative. DIAGNOSTIC IMPRESSION AND PLAN: 1. Patient admitted to the hospital with fever and mental status changes with possible pneumonia, community-acquired. The patient seemed to have shown clinical improvement on Rocephin. Antibiotic will be switched over to Ceftin 500 mg twice a day for another 4 days to finish a course of therapy. 2. Patient with groin area cutaneous candidiasis. Local care with nystatin powder twice a day. Patient advised to keep the area dry. Prescription sent to pharmacy. Their questions were answered. MMODL / IJN: [id number] /
--- NOTE | 2019-06-05 15:48 | P.PN ---
Subjective 78-year-old female with a past medical history of atrial fibrillation on anticoagulation, COPD, GERD, osteoporosis , rheumatoid arthritis on methotrexate and Ajovy , coming in to the hospital for altered mental status changes. Patient is a poor historian. is at the bedside, provided most of the history. He states for the past couple of days she has been complaining of increased frequency of urination. She had a sense of incomplete emptying of her bladder. She was also complaining of cough with mild difficulty in breathing. Cough is mostly dry and occasional sputum production. She felt that she had a fever but did not have a recorded temperature. Her noticed that she was getting more confused and also getting weaker for the past couple of days. Patient also complains of chest soreness. No chest pain. She denies having any orthopnea PND. No swelling of her lower extremities. No abdominal pain nausea vomiting or diarrhea. Patient denies bleeding from any site. In the emergency room at the time of admission, patient was having tachycardia and a recorded temperature of 100.1. She had urine analysis showing many bacteria and positive for nitrites. Her creatinine is elevated at 1.08. CT of the head was showing cerebral atrophy in mild chronic small vessel ischemia. No acute intracranial abnormality. Chest x-ray showing diffuse interstitial pneumonic infiltrate on the right side. 06/05/2019 Patient is being treated for the pneumonia with improved symptoms urine cultures are still pending patient is desaturating upon ablation because of which I'll not discharge the patient today patient will be continued on present antibiotic and systemic steroids will reassess for home O2 evaluation if she requires home O2 tomorrow patient will be discharged oxygen tomorrow patient has groin area tenderness candidiasis with some skin breakdown for which patient will continue with nystatin powder infectious disease evaluated the patient. Patient to mental status appears to be at her baseline now Constitutional: Denied any fatigue denied any fever. Cardio vascular: denied any chest pain, palpitations Gastrointestinal denied any nausea vomiting Pulmonary: Denied any shortness of breath cough Neurologic denied any new focal deficits All inpatient medications were reviewed and appropriate changes in these medications as dictated in the interval history and assessment and plan. Objective - Vital Signs Vital signs: Vital Signs Temp 97.3 F L 06/05/19 07:31 Pulse 88 06/05/19 08:55 Resp 17 06/05/19 04:04 BP 122/98 06/05/19 07:31 Pulse Ox 96 06/05/19 14:28 Intake & Output 06/04/19 06/05/19 06/05/19 18:59 06:59 18:59 Intake Total 1186 1200 Balance 1186 1200 Intake: Intake, IV Titration 650 1200 Amount Sodium Chloride 0.9% 1, 600 1200 000 ml @ 100 mls/hr IV . Q10H JUANCHO Rx#:[id number] cefTRIAXone 1 gm In 50 Sodium Chloride 0.9% 50 ml @ 100 mls/hr IVPB Q24HR JUANCHO Rx#:[id number] Oral 536 Other: Voiding Method Bedpan Toilet Toilet # Voids 3 1 2 # Bowel Movements 1 2 - Exam GEN. APPEARANCE: Patient is awake. No acute distress. HEAD EXAM: atraumatic, normocephalic, normal inspection EYE EXAM: Pupils round and reactive to light. No pallor. No icterus ENT EXAM: normal exam, mucous membranes moist NECK EXAM: No JVD. RESPIRATORY EXAM: Bilateral breath sounds are positive. Coarse breath sounds in all lung paez. No significant wheezing CARDIOVASCULAR EXAM: S1 and S2 heard. Nausea and sounds. GI/ABDOMINAL EXAM: soft, normal bowel sounds. Nondistended. No tenderness. No guarding or rigidity. EXTREMITIES EXAM: No lower extremity edema. BACK EXAM: Prostate for bilateral paraspinal tenderness NEUROLOGICAL EXAM: alert, oriented X2 , no focal neurological deficits PSYCHIATRIC EXAM: normal affect, normal mood SKIN EXAM: Patient right groin cutaneous candidiasis with some skin breakdown - Labs CBC & Chem 7: 06/03/19 16:45 06/03/19 16:45 Labs: Abnormal Lab Results - Last 24 Hours (Table) 06/04/19 06/04/19 06/04/19 Range/Units 17:28 20:08 21:12 POC Glucose (mg/dL) 152 H 156 H 149 H (75-99) mg/dL 06/05/19 06/05/19 Range/Units 07:05 11:36 POC Glucose (mg/dL) 145 H 139 H (75-99) mg/dL Microbiology - Last 24 Hours (Table) 06/04/19 12:37 Blood Culture - Preliminary Blood No Growth after 24 hours 06/04/19 12:26 Blood Culture - Preliminary Blood No Growth after 24 hours 06/04/19 15:00 Urine Culture - Preliminary Urine,Clean Catch Assessment and Plan Plan: Sepsis- right sided pneumonia continue with Rocephin and azithromycin History of ESBL UTI in the past -Candidal intertrigo in the right groin area Acute kidney injury- prerenal, improving Chronic atrial fibrillation on anticoagulation COPD with acute exacerbation patient will be switched to oral steroids and reassess for home oxygen tomorrow Migraine headaches Hypertension Osteoporosis History of right arm surgery Former smoker Rheumatoid arthritis on methotrexate
[2019-06-05 16:11] LABS: Hemoglobin A1C 6.4 % (4.0-6.0)
[2019-06-05 17:08] LABS: Glucose,Whole Blood 137 mg/dL (75-99)
[2019-06-05 20:09] LABS: Glucose,Whole Blood 124 mg/dL (75-99)
[2019-06-05] MEDS: traZODone HCL 50 MG TAB PO SCH (20:22)
[2019-06-05] MEDS: MONTELUKAST 10 MG TAB PO SCH (20:22)
[2019-06-05] MEDS ORDERED: methylPREDNISolone SOD SUCCI 40 MG/ML 1 ML VIAL IV SCH (21:00)
[2019-06-06 02:09] VITALS: TEMP 97.6
[2019-06-06] MEDS: LEVOTHYROXINE 75 MCG TAB PO SCH (05:40)
[2019-06-06 07:05] LABS: Glucose,Whole Blood 89 mg/dL (75-99)
[2019-06-06] MEDS: INSULIN ASPART (NovoLOG) 100 UNIT/ML VIAL SQ SCH ×2 (07:21→13:49)
[2019-06-06] MEDS: APIXABAN 5 MG TAB PO SCH (07:36)
[2019-06-06] MEDS: PANTOPRAZOLE 40 MG TABLET PO SCH (07:36)
[2019-06-06] MEDS: MAGNESIUM OXIDE 400 MG TAB PO SCH (07:36)
[2019-06-06] MEDS: FOLIC ACID 1 MG TAB PO SCH (07:36)
[2019-06-06] MEDS: TOPIRAMATE 25 MG TAB PO SCH (07:37)
[2019-06-06] MEDS: AZITHROMYCIN 250 MG TAB PO SCH (07:37)
[2019-06-06 07:55] LABS: Anisocytosis Slight; HCT 32.7 % (34.0-46.0); HGB 10.8 gm/dL (11.4-16.0); MCHC 32.9 g/dL (31.0-37.0); MCV 97.4 fL (80.0-100.0); Macrocytosis Slight; Mean Platelet Volume 7.6; Platelet Count 186 k/uL (150-450); RBC 3.36 m/uL (3.80-5.40); RDW 16.1 % (11.5-15.5); WBC 4.3 k/uL (3.8-10.6)
[2019-06-06 07:59] LABS: Calcium 8.6 mg/dL (8.4-10.2); Potassium 3.5 mmol/L (3.5-5.1)
[2019-06-06 08:27] VITALS: BP 141/78; RESP 16
[2019-06-06] MEDS: IPRATROPIUM-ALBUTEROL 3 ML NEB INHALATION PRN (08:47)
[2019-06-06] MEDS: SYMBICORT 80-4.5 MCG INHALER INHALATION SCH (08:47)
[2019-06-06 08:59] VITALS: PULSE 80
[2019-06-06] MEDS ORDERED: predniSONE 20 MG TAB PO SCH (09:00)
[2019-06-06 11:29] LABS: Glucose,Whole Blood 149 mg/dL (75-99)
--- NOTE | 2019-06-06 13:03 | XR ---
EXAMINATION TYPE: XR chest 1V DATE OF EXAM: 06/06/2019 COMPARISON: 06/05/2019 HISTORY: Fever TECHNIQUE: Single frontal view of the chest is obtained. FINDINGS: Heart is stable. Coarsened interstitium noted with surgical clips in the right upper quadr ant. Subsegmental changes of consolidation at both lung bases. Hypertrophic and degenerative change o f the spine. Hyperinflation of the lungs suggests COPD. IMPRESSION: 1. Stable interstitial pattern could be on the basis of interstitial pneumonitis. Correla te clinically. No significant interval change. Underlying chronic interstitial lung disease in the di fferential diagnosis. 2. Vague nodularity right lower lobe measuring 1.1 cm. Underlying pulmonary nodule not excluded. Saleh son, finding most likely secondary to superimposed structures.
--- NOTE | 2019-06-06 14:00 | P.DS ---
Providers Date of admission: 06/04/19 17:28 Attending physician: Fernie Wadsworth Consults: 06/04/19 12:04 Consult Physician Routine Consulting Provider: Abdulaziz Bass Consult Reason/Comments: UTI and Pneumonia with multiple drug allergies, Previous UTI in 2018 ESBL Do you want consulting provider notified?: Yes Consult Physician Routine Consulting Provider: Abdulaziz Bass Consult Reason/Comments: antibiotics/UTI/pneumonia with several antibiotic allergies Do you want consulting provider notified?: Yes Primary care physician: Derik [facility] Course: 78-year-old female with a past medical history of atrial fibrillation on anticoagulation, COPD, GERD, osteoporosis , rheumatoid arthritis on methotrexate and Ajovy , coming in to the hospital for altered mental status changes. Patient is a poor historian. is at the bedside, provided most of the history. He states for the past couple of days she has been complaining of increased frequency of urination. She had a sense of incomplete emptying of her bladder. She was also complaining of cough with mild difficulty in breathing. Cough is mostly dry and occasional sputum production. She felt that she had a fever but did not have a recorded temperature. Her noticed that she was getting more confused and also getting weaker for the past couple of days. Patient also complains of chest soreness. No chest pain. She denies having any orthopnea PND. No swelling of her lower extremities. No abdominal pain nausea vomiting or diarrhea. Patient denies bleeding from any site. In the emergency room at the time of admission, patient was having tachycardia and a recorded temperature of 100.1. She had urine analysis showing many bacteria and positive for nitrites. Her creatinine is elevated at 1.08. CT of the head was showing cerebral atrophy in mild chronic small vessel ischemia. No acute intracranial abnormality. Chest x-ray showing diffuse interstitial p neumonic infiltrate on the right side. 06/05/2019 Patient is being treated for the pneumonia with improved symptoms urine cultures are still pending patient is desaturating upon ablation because of which I'll not discharge the patient today patient will be continued on present antibiotic and systemic steroids will reassess for home O2 evaluation if she requires home O2 tomorrow patient will be discharged oxygen tomorrow patient has groin area tenderness candidiasis with some skin breakdown for which patient will continue with nystatin powder infectious disease evaluated the patient. Patient to mental status appears to be at her baseline now 06/06/2019 She continues to desaturate there is very minimal wheeze on exam because of which I will discharge her on home oxygen. Chest x-ray no significant change compared to yesterday. will follow with pulmonary as an outpatient. - Exam GEN. APPEARANCE: Patient is awake. No acute distress. HEAD EXAM: atraumatic, normocephalic, normal inspection EYE EXAM: Pupils round and reactive to light. No pallor. No icterus ENT EXAM: normal exam, mucous membranes moist NECK EXAM: No JVD. RESPIRATORY EXAM: Bilateral breath sounds are positive. Coarse breath sounds in all lung paez. No significant wheezing CARDIOVASCULAR EXAM: S1 and S2 heard. Nausea and sounds. GI/ABDOMINAL EXAM: soft, normal bowel sounds. Nondistended. No tenderness. No guarding or rigidity. EXTREMITIES EXAM: No lower extremity edema. BACK EXAM: Prostate for bilateral paraspinal tenderness NEUROLOGICAL EXAM: alert, oriented X3 , no focal neurological deficits PSYCHIATRIC EXAM: normal affect, normal mood SKIN EXAM: Patient right groin cutaneous candidiasis with some skin breakdown Assessment and Plan Plan: Sepsis- right sided pneumonia. Patient is being discharged on Ceftin History of ESBL UTI in the past -Candidal intertrigo in the right groin area Acute kidney injury- prerenal, improving Chronic atrial fibrillation on anticoagulation COPD with acute exacerbation patient will be switched to oral steroids and she is requiring home O2 Migraine headaches Hypertension Osteoporosis History of right arm surgery Former smoker Rheumatoid arthritis on methotrexate Patient Condition at Discharge: Fair Plan - Discharge Summary Discharge Rx Participant: Yes New Discharge Prescriptions: New predniSONE 10 mg PO DAILY #30 tab Cefuroxime Axetil [Ceftin] 500 mg PO BID #8 tab Nystatin 100,000 Unit/gm Powd [Mycostatin Powder] 1 applic TOPICAL BID #60 gm Continue Cholecalciferol (Vitamin D3) [Vitamin D3] 2,000 unit PO DAILY Esomeprazole Magnesium [NexIUM] 40 mg PO DAILY Magnesium Oxide [Mag-Ox] 250 mg PO DAILY Topiramate [Topamax] 50 mg PO BID [place]-3 Acid Ethyl Esters [Lovaza] 2 gm PO BID Montelukast [Singulair] 10 mg PO HS Methotrexate Sodium [Methotrexate] 20 mg PO FR Levothyroxine Sodium [Synthroid] 75 mcg PO DAILY Ipratropium/Albuterol Sulfate [Combivent Respimat Inhaler] 1 puff INHALATION RT-QID PRN PRN Reason: Shortness Of Breath Ipratropium [place] 0.06%Nasal [Atrovent Nasal 0.06%] 2 spray EA NOSTRIL TID Folic Acid 1 mg PO DAILY Fluticasone/Salmeterol [Advair 250-50 Diskus] 1 puff INHALATION RT-BID Apixaban [Eliquis] 5 mg PO BID tab traZODone HCL 50 mg PO HS HYDROcodone/APAP 7.5-325MG [[place] 7.5-325] 1 tab PO Q6H PRN PRN Reason: Pain Fremanezumab-Vfrm [Ajovy] 225 mg SQ Q30D Changed Lisinopril 10 mg PO DAILY #0 Discontinued Furosemide [Lasix] 20 mg PO DAILY Discharge Medication List Cholecalciferol (Vitamin D3) [Vitamin D3] 2,000 unit PO DAILY 06/04/18 [History] Esomeprazole Magnesium [NexIUM] 40 mg PO DAILY 06/04/18 [History] Fluticasone/Salmeterol [Advair 250-50 Diskus] 1 puff INHALATION RT-BID 06/05/18 [History] Folic Acid 1 mg PO DAILY 06/05/18 [History] Ipratropium [place] 0.06%Nasal [Atrovent Nasal 0.06%] 2 spray EA NOSTRIL TID 06/05/18 [History] Ipratropium/Albuterol Sulfate [Combivent Respimat Inhaler] 1 puff INHALATION RT- QID PRN 06/05/18 [History] Levothyroxine Sodium [Synthroid] 75 mcg PO DAILY 06/05/18 [History] Magnesium Oxide [Mag-Ox] 250 mg PO DAILY 06/05/18 [History] Methotrexate Sodium [Methotrexate] 20 mg PO FR 06/05/18 [History] Montelukast [Singulair] 10 mg PO HS 06/05/18 [History] [place]-3 Acid Ethyl Esters [Lovaza] 2 gm PO BID 06/05/18 [History] Topiramate [Topamax] 50 mg PO BID 06/05/18 [History] Apixaban [Eliquis] 5 mg PO BID tab 06/10/18 [Rx] Fremanezumab-Vfrm [Ajovy] 225 mg SQ Q30D 06/03/19 [History] HYDROcodone/APAP 7.5-325MG [[place] 7.5-325] 1 tab PO Q6H PRN 06/03/19 [History] traZODone HCL 50 mg PO HS 06/03/19 [History] Cefuroxime Axetil [Ceftin] 500 mg PO BID #8 tab 06/05/19 [Rx] Nystatin 100,000 Unit/gm Powd [Mycostatin Powder] 1 applic TOPICAL BID #60 gm 06/05/19 [Rx] predniSONE 10 mg PO DAILY #30 tab 06/05/19 [Rx] Lisinopril 10 mg PO DAILY #0 06/06/19 [Rx] Follow up Appointment(s)/Referral(s): Derik Hawley MD [Primary Care Provider] - 3 Days (Staff unable to reach office, please call June 07 to set up a follow up appointment) Abdulaziz Bass MD [STAFF PHYSICIAN] - As Needed Patient Instructions/Handouts: Urinary Tract Infection in Women (DC), Altered Mental Status (GEN) Activity/Diet/Wound Care/Special Instructions: pt script sent to [facility] for home o2, Discharge Disposition: HOME SELF-CARE
--- NOTE | 2019-06-06 15:26 | PN ---
PROGRESS NOTE DATE OF SERVICE: 06/06/2019 REASON FOR FOLLOWUP: Fever, possible pneumonia. INTERVAL HISTORY: The patient is currently afebrile. Patient has been breathing comfortably. The patient denies having chest pain. He did have some cough noted with increased intensity, no sputum. No nausea, no vomiting, no abdominal pain, no diarrhea. PHYSICAL EXAMINATION: Blood pressure 141/78 with a pulse of 76, temperature 97.6, he is 90% on 3 L nasal cannula. General description is an elderly female, up in the bed in no distress. RESPIRATORY SYSTEM: Unlabored breathing. Decreased breath sounds at the base, no wheeze. HEART: S1, S2. Regular rate and rhythm. ABDOMEN: Soft, no tenderness. LABS: Hemoglobin is 10.1, white count of 4.2, BUN of 29, creatinine 0.91. Blood and urine cultures have been negative. DIAGNOSTIC IMPRESSION AND PLAN: Patient with fever and mental status change, possible pneumonia. Clinically doubt urinary tract infection with urine culture has been negative and no urinary symptoms. Overall improvement. In therapy, short course of oral Ceftin and prednisone. Will monitor clinical course closely. Family is at bedside. Questions were answered. MMODL / IJN: [id number] /
[2019-06-08] MEDS ORDERED: METHOTREXATE SODIUM 2.5 MG TAB PO SCH (09:00)
== END 2019-06-06 14:54 | disposition home or self-care (01) | DRG 871 ==
LOC: EC 16:30 → 4SSUR 18:54 → OBSVTOIN 06-04 17:28
PROVIDERS: ADMIT Hospitalist; ATTEND Hospitalist
DX: A41.9 Sepsis, unspecified organism (principal); J18.9 Pneumonia, unspecified organism; J44.0 Chronic obstructive pulmonary disease with (acute) lower respiratory infection; J44.1 Chronic obstructive pulmonary disease with (acute) exacerbation; N17.9 Acute kidney failure, unspecified; B37.2 Candidiasis of skin and nail; F03.90 Unspecified dementia, unspecified severity, without behavioral disturbance, psychotic disturbance, mood disturbance, and anxiety; G43.909 Migraine, unspecified, not intractable, without status migrainosus; I10 Essential (primary) hypertension; I48.2 Chronic atrial fibrillation; K21.9 Gastro-esophageal reflux disease without esophagitis; M06.9 Rheumatoid arthritis, unspecified; M81.0 Age-related osteoporosis without current pathological fracture; Z79.01 Long term (current) use of anticoagulants; Z79.890 Hormone replacement therapy; Z79.899 Other long term (current) drug therapy; Z82.49 Family history of ischemic heart disease and other diseases of the circulatory system; Z86.19 Personal history of other infectious and parasitic diseases; Z87.440 Personal history of urinary (tract) infections; Z87.891 Personal history of nicotine dependence; Z88.9 Allergy status to unspecified drugs, medicaments and biological substances; Z90.710 Acquired absence of both cervix and uterus; Z99.81 Dependence on supplemental oxygen; Z79.51 Long term (current) use of inhaled steroids; Z79.891 Long term (current) use of opiate analgesic; Z88.0 Allergy status to penicillin; Z88.2 Allergy status to sulfonamides; Z88.8 Allergy status to other drugs, medicaments and biological substances; Z88.1 Allergy status to other antibiotic agents; Z91.040 Latex allergy status; Z90.49 Acquired absence of other specified parts of digestive tract
CPT/HCPCS: 36415; 70450; 71045; 71046; 80048; 80053; 80306; 81001; 82140; 82550; 82553; 83036; 84484; 85025; 85027; 85610; 85730; 87040; 87070; 87086; 87205; 87502; 93005; 94640; 96361; 96374; 99285

== ENCOUNTER 2019-06-11 09:25 | Observation (INO) | payer MEDICARE, BC ==
[2019-06-11] MEDS ORDERED: SODIUM CHLORIDE 0.9% 500 ML 500 ML IV ONE (10:08)
[2019-06-11] MEDS ORDERED: SODIUM CHLORIDE 0.9% 1,000 ML IV ONE (10:08)
--- NOTE | 2019-06-11 10:12 | ED ---
Altered Mental Status HPI - General Chief Complaint: Altered Mental Status Stated Complaint: trouble walking Time Seen by Provider: 06/11/19 09:47 Source: patient, family, RN notes reviewed, old records reviewed Mode of arrival: ambulatory - History of Present Illness Initial Comments: This is a 78-year-old female with a history of recent admission for pneumonia and generalized weakness he presents this morning with complaints of difficulty walking and some confusion/altered mental status occurred around 3 AM this morning. She was recently admitted for pneumonia treatment and per her she is acting very similar to when she was at that time. No falls reported she complains some history of low back pain for last 2 days she does have a history of rheumatoid arthritis. No fevers chills nausea vomiting sweats or other symptoms reported at this time MD Complaint: altered mental status, confusion, weakness, other - Related Data Home Medications Medication Instructions Recorded Confirmed Cholecalciferol (Vitamin D3) 2,000 unit PO DAILY 06/04/18 06/11/19 [Vitamin D3] Esomeprazole Magnesium [NexIUM] 40 mg PO DAILY 06/04/18 06/11/19 Fluticasone/Salmeterol [Advair 1 puff INHALATION RT-BID 06/05/18 06/11/19 250-50 Diskus] Folic Acid 1 mg PO DAILY 06/05/18 06/11/19 Ipratropium [place] 0.06%Nasal 2 spray EA NOSTRIL TID 06/05/18 06/11/19 [Atrovent Nasal 0.06%] Ipratropium/Albuterol Sulfate 1 puff INHALATION RT-QID PRN 06/05/18 06/11/19 [Combivent Respimat Inhaler] Levothyroxine Sodium [Synthroid] 75 mcg PO DAILY 06/05/18 06/11/19 Magnesium Oxide [Mag-Ox] 250 mg PO DAILY 06/05/18 06/11/19 Methotrexate Sodium [Methotrexate] 20 mg PO FR 06/05/18 06/11/19 Montelukast [Singulair] 10 mg PO HS 06/05/18 06/11/19 [place]-3 Acid Ethyl Esters [Lovaza] 2 gm PO BID 06/05/18 06/11/19 Topiramate [Topamax] 50 mg PO BID 06/05/18 06/11/19 Fremanezumab-Vfrm [Ajovy] 225 mg SQ Q30D 06/03/19 06/11/19 HYDROcodone/APAP 7.5-325MG [[place] 1 tab PO Q6H PRN 06/03/19 06/11/19 7.5-325] traZODone HCL 50 mg PO HS 06/03/19 06/11/19 predniSONE See Taper PO DAILY 06/11/19 06/11/19 Previous Rx's Medication Instructions Recorded Apixaban [Eliquis] 5 mg PO BID tab 06/10/18 Nystatin 100,000 Unit/gm Powd 1 applic TOPICAL BID #60 gm 06/05/19 [Mycostatin Powder] Lisinopril 10 mg PO DAILY #0 06/06/19 Allergies Allergy/AdvReac Type Severity Reaction Status Date / Time adhesive tape Allergy Unknown Verified 06/11/19 09:53 ciprofloxacin [From Cipro] Allergy Unknown Verified 06/11/19 09:53 epinephrine Allergy Unknown Verified 06/11/19 09:53 latex Allergy Rash/Hives Verified 06/11/19 09:53 Penicillins Allergy Unknown Verified 06/11/19 09:53 povidone-iodine Allergy Unknown Verified 06/11/19 09:53 [From Betadine] soap [From Betadine] Allergy Unknown Verified 06/11/19 09:53 Sulfa (Sulfonamide Allergy Unknown Verified 06/11/19 09:53 Antibiotics) Tetanus Vaccines and Toxoid Allergy Unknown Verified 06/11/19 09:53 amitriptyline [From Elavil] AdvReac Confusion Verified 06/11/19 09:53 Review of Systems ROS Statement: Those systems with pertinent positive or pertinent negative responses have been documented in the HPI. ROS Other: All systems not noted in ROS Statement are negative. Past Medical History Past Medical History: Atrial Fibrillation, Asthma, COPD, GERD/Reflux Additional Past Medical History / Comment(s): migraines; osteoporosis History of Any Multi-Drug Resistant Organisms: ESBL Date of last positivie culture/infection: 06/05/18 MDRO Source:: esbl urine Past Surgical History: Appendectomy, Cholecystectomy, Hysterectomy, Tonsillectomy Additional Past Surgical History / Comment(s): D&C, colonoscopy, left knee scope, right arm surgery Past Anesthesia/Blood Transfusion Reactions: Motion Sickness Additional Past Anesthesia/Blood Transfusion Reaction / Comment(s): Pt states she has severe motion sickness Past Psychological History: No Psychological Hx Reported Smoking Status: Former smoker Past Alcohol Use History: None Reported Past Drug Use History: None Reported - Past Family History Mother Additional Family Medical History / Comment(s): Pt states mother had severe mi graines and at the age of 43yrs while hospitalized with severe migraine but does not know cause of . Father Family Medical History: Myocardial Infarction ([place]) Additional Family Medical History / Comment(s): Father of a [place] at the age of 54yrs. Family Additional Family Medical History / Comment(s): Patient denies any history of coronary artery disease General Exam - General Exam Comments Initial Comments: Is a well-developed well-nourished awake alert oriented 3 female General appearance: alert, in no apparent distress Head exam: Present: atraumatic, normocephalic, normal inspection Eye exam: Present: normal appearance, PERRL, EOMI. Absent: scleral icterus, conjunctival injection, periorbital swelling ENT exam: Present: mucous membranes dry Neck exam: Present: normal inspection. Absent: tenderness, meningismus, lymphadenopathy Respiratory exam: Present: normal lung sounds bilaterally. Absent: respiratory distress, wheezes, rales, rhonchi, stridor Cardiovascular Exam: Present: regular rate, normal rhythm, normal heart sounds. Absent: systolic murmur, diastolic murmur, rubs, gallop, clicks GI/Abdominal exam: Present: soft, normal bowel sounds. Absent: distended, tenderness, guarding, rebound, rigid, bruit, pulsatile mass Extremities exam: Present: normal inspection, full ROM, tenderness (Tennis over both hips to palpation), normal capillary refill. Absent: pedal edema, joint swelling, calf tenderness Back exam: Present: normal inspection, other (Limited range of motion with some tenderness over the paraspinous musculature. No step-off or crepitation noted.) Neurological exam: Present: alert, oriented X3, CN II-XII intact Psychiatric exam: Present: normal affect, normal mood Skin exam: Present: warm, dry, intact, normal color. Absent: rash Course Vital Signs 06/11/19 09:35 Temperature 98.9 F Pulse Rate 93 Respiratory 22 Rate Blood Pressure 135/78 O2 Sat by Pulse 97 Oximetry - Reevaluation(s) Reevaluation #1: 06/11/19 13:27 Reevaluation patient reveals she does feel improved she is able ambulate. She denies any chest pain before today's admission or during the admission. Medical Decision Making - Medical Decision Making Did discuss [employer] the patient family patient has continuing urinary tract infection evidence of dehydration with elevated troponin and leukopenia. Patient be admitted I did discuss case with Dr. Haro - Lab Data Result diagrams: 06/11/19 10:06 06/11/19 10:06 Lab Results 06/11/19 06/11/19 06/11/19 Range/Units 10:06 10:06 10:06 WBC 1.3 L* (3.8-10.6) k/uL RBC 3.62 L (3.80-5.40) m/uL Hgb 11.6 (11.4-16.0) gm/dL Hct 33.6 L (34.0-46.0) % MCV 92.6 (80.0-100.0) fL MCH 31.9 (25.0-35.0) pg MCHC 34.5 (31.0-37.0) g/dL RDW 16.4 H (11.5-15.5) % Plt Count 125 L (150-450) k/uL Neutrophils % 22 % Lymphocytes % 67 % Monocytes % 2 % Eosinophils % 7 % Basophils % 0 % Neutrophils # 0.3 L* (1.3-7.7) k/uL Lymphocytes # 0.8 L (1.0-4.8) k/uL Monocytes # 0.0 (0-1.0) k/uL Eosinophils # 0.1 (0-0.7) k/uL Basophils # 0.0 (0-0.2) k/uL Manual Slide Review Performed Poikilocytosis (manual Present Anisocytosis Slight PT 10.1 (9.0-12.0) sec INR 0.9 (<1.2) APTT 21.6 L (22.0-30.0) sec Sodium 138 (137-145) mmol/L Potassium 3.7 (3.5-5.1) mmol/L Chloride 110 H (98-107) mmol/L Carbon Dioxide 21 L (22-30) mmol/L Anion Gap 7 mmol/L BUN 20 H (7-17) mg/dL Creatinine 0.84 (0.52-1.04) mg/dL Est GFR (CKD-EPI)AfAm 78 (>60 ml/min/1.73 sqM) Est GFR (CKD-EPI)NonAf 68 (>60 ml/min/1.73 sqM) Glucose 124 H (74-99) mg/dL POC Glucose (mg/dL) (75-99) mg/dL POC Glu Mechanical Laboratory Technician ID Calcium 8.5 (8.4-10.2) mg/dL Total Bilirubin 0.9 (0.2-1.3) mg/dL AST 29 (14-36) U/L ALT 37 (9-52) U/L Alkaline Phosphatase 66 (38-126) U/L Creatine Kinase 163 H (30-135) U/L Troponin I (0.000-0.034) ng/mL Total Protein 5.9 L (6.3-8.2) g/dL Albumin 3.2 L (3.5-5.0) g/dL Urine Color Urine Appearance (Clear) Urine pH (5.0-8.0) Ur Specific [place] (1.001-1.035) Urine Protein (Negative) Urine Glucose (UA) (Negative) Urine Ketones (Negative) Urine Blood (Negative) Urine Nitrite (Negative) Urine Bilirubin (Negative) Urine Urobilinogen (<2.0) mg/dL Ur Leukocyte Esterase (Negative) Urine RBC (0-5) /hpf Urine WBC (0-5) /hpf Ur Squamous Epith Cells (0-4) /hpf Urine Bacteria (None) /hpf Urine Mucus (None) /hpf Urine Opiates Screen (NotDetected) Ur Oxycodone Screen (NotDetected) Urine Methadone Screen (NotDetected) Ur Propoxyphene Screen (NotDetected) Ur Barbiturates Screen (NotDetected) U Tricyclic Antidepress (NotDetected) Ur Phencyclidine Scrn (NotDetected) Ur Amphetamines Screen (NotDetected) U Methamphetamines Scrn (NotDetected) U Benzodiazepines Scrn (NotDetected) Urine Cocaine Screen (NotDetected) U Marijuana (THC) Screen (NotDetected) 06/11/19 06/11/19 06/11/19 Range/Units 10:06 10:40 10:54 WBC (3.8-10.6) k/uL RBC (3.80-5.40) m/uL Hgb (11.4-16.0) gm/dL Hct (34.0-46.0) % MCV (80.0-100.0) fL MCH (25.0-35.0) pg MCHC (31.0-37.0) g/dL RDW (11.5-15.5) % Plt Count (150-450) k/uL Neutrophils % % Lymphocytes % % Monocytes % % Eosinophils % % Basophils % % Neutrophils # (1.3-7.7) k/uL Lymphocytes # (1.0-4.8) k/uL Monocytes # (0-1.0) k/uL Eosinophils # (0-0.7) k/uL Basophils # (0-0.2) k/uL Manual Slide Review Poikilocytosis (manual Anisocytosis PT (9.0-12.0) sec INR (<1.2) APTT (22.0-30.0) sec Sodium (137-145) mmol/L Potassium (3.5-5.1) mmol/L Chloride (98-107) mmol/L Carbon Dioxide (22-30) mmol/L Anion Gap mmol/L BUN (7-17) mg/dL Creatinine (0.52-1.04) mg/dL Est GFR (CKD-EPI)AfAm (>60 ml/min/1.73 sqM) Est GFR (CKD-EPI)NonAf (>60 ml/min/1.73 sqM) Glucose (74-99) mg/dL POC Glucose (mg/dL) 112 H (75-99) mg/dL POC Glu Mechanical Laboratory Technician ID WongShorty Calcium (8.4-10.2) mg/dL Total Bilirubin (0.2-1.3) mg/dL AST (14-36) U/L ALT (9-52) U/L Alkaline Phosphatase (38-126) U/L Creatine Kinase (30-135) U/L Troponin I 0.037 H* (0.000-0.034) ng/mL Total Protein (6.3-8.2) g/dL Albumin (3.5-5.0) g/dL Urine Color Yellow Urine Appearance Cloudy H (Clear) Urine pH 7.5 (5.0-8.0) Ur Specific [place] 1.018 (1.001-1.035) Urine Protein Negative (Negative) Urine Glucose (UA) Negative (Negative) Urine Ketones Negative (Negative) Urine Blood Negative (Negative) Urine Nitrite Positive H (Negative) Urine Bilirubin Negative (Negative) Urine Urobilinogen <2.0 (<2.0) mg/dL Ur Leukocyte Esterase Negative (Negative) Urine RBC 1 (0-5) /hpf Urine WBC 4 (0-5) /hpf Ur Squamous Epith Cells <1 (0-4) /hpf Urine Bacteria Many H (None) /hpf Urine Mucus Occasional H (None) /hpf Urine Opiates Screen Not Detected (NotDetected) Ur Oxycodone Screen Not Detected (NotDetected) Urine Methadone Screen Not Detected (NotDetected) Ur Propoxyphene Screen Not Detected (NotDetected) Ur Barbiturates Screen Not Detected (NotDetected) U Tricyclic Antidepress Not Detected (NotDetected) Ur Phencyclidine Scrn Not Detected (NotDetected) Ur Amphetamines Screen Not Detected (NotDetected) U Methamphetamines Scrn Not Detected (NotDetected) U Benzodiazepines Scrn Not Detected (NotDetected) Urine Cocaine Screen Not Detected (NotDetected) U Marijuana (THC) Screen Not Detected (NotDetected) - EKG Data -: EKG Interpreted by Me EKG shows normal: sinus rhythm (Sinus rhythm of 88. Interval 132 QRS duration 112 QT since QTC 396/479 low-voltage QRS evidence a right bundle-branch block) - Radiology Data Radiology results: report reviewed (I did review the imaging and report no acute findings.), image reviewed Disposition Clinical Impression: Urinary tract infection, Failure of outpatient treatment, Dehydration, Leukopenia, Elevated troponin Disposition: ADMITTED IP TO THIS [facility] Condition: Fair Referrals: Derik Hawley MD [Primary Care Provider] - 1-2 days
[2019-06-11 10:33] LABS: Albumin 3.2 g/dL (3.5-5.0); Calcium 8.5 mg/dL (8.4-10.2); Potassium 3.7 mmol/L (3.5-5.1); Total Bilirubin 0.9 mg/dL (0.2-1.3); Total Protein 5.9 g/dL (6.3-8.2)
[2019-06-11 10:39] LABS: INR 0.9 (<1.2); Prothrombin Time 10.1 sec (9.0-12.0)
[2019-06-11 10:42] LABS: Glucose,Whole Blood 112 mg/dL (75-99)
[2019-06-11 10:43] LABS: Partial Thromboplastin Time 21.6 sec (22.0-30.0)
[2019-06-11 11:02] LABS: Anisocytosis Slight; Basophils % (A) 0 %; Eosinophils # (A) 0.1 k/uL (0-0.7); Eosinophils % (A) 7 %; HCT 33.6 % (34.0-46.0); HGB 11.6 gm/dL (11.4-16.0); Lymphocytes # (A) 0.8 k/uL (1.0-4.8); Lymphocytes % (A) 67 %; MCH 31.9 pg (25.0-35.0); MCHC 34.5 g/dL (31.0-37.0); MCV 92.6 fL (80.0-100.0); Mean Platelet Volume 7.6; Monocytes % (A) 2 %; Neutrophils % (A) 22 %; Platelet Count 125 k/uL (150-450); RBC 3.62 m/uL (3.80-5.40); RDW 16.4 % (11.5-15.5)
[2019-06-11 11:08] LABS: WBC 1.3 k/uL (3.8-10.6)
--- NOTE | 2019-06-11 11:18 | CT ---
EXAMINATION TYPE: CT brain wo con DATE OF EXAM: 06/11/2019 COMPARISON: 06/03/2019 HISTORY: Altered mental status. Trouble walking CT DLP: 1088.4 mGycm Automated exposure control for dose reduction was used. TECHNIQUE: CT scan of the head is performed without contrast. FINDINGS: There is no acute intracranial hemorrhage or midline shift identified. There is diffuse v entricular and sulcal prominence consistent with diffuse age-related cerebral atrophy. There is low- attenuation in the periventricular white matter consistent with chronic small vessel ischemic change. Mild mucosal thickening is seen within the ethmoid sinuses. The globes are intact and the remaining visualized sinuses are clear. IMPRESSION: No acute intracranial hemorrhage or midline shift. There is diffuse age-related cerebra l atrophy and advanced chronic small vessel ischemic change noted.
--- NOTE | 2019-06-11 11:18 | XR ---
EXAMINATION TYPE: XR chest 2V DATE OF EXAM: 06/11/2019 COMPARISON: 06/06/2019 HISTORY: 78-year-old female with confusion, altered mental status TECHNIQUE: AP and lateral views FINDINGS: Heart limits of normal in size. Strandy areas of atelectasis throughout the lungs. Mild peribronchial cuffing has a chronic appearance. There may be some chronic interstitial changes as well. IMPRESSION: Scattered interstitial changes may in part be chronic. Correlate to exclude bronchitis, atypical pneu monias, or interstitial pneumonitis. No focal infiltrate.
[2019-06-11 11:30] LABS: Amphetamine Screen,Urine Not Detected (NotDetected); Barbiturate Screen,Urine Not Detected (NotDetected); Benzodiazepines Screen,Urine Not Detected (NotDetected); Cocaine Screen,Urine Not Detected (NotDetected); Methadone Screen, Urine Not Detected (NotDetected); Opiate Screen,Urine Not Detected (NotDetected); Oxycodone Screen, Urine Not Detected (NotDetected); Phencyclidine Screen,Urine Not Detected (NotDetected); Tricyclic Antidepressant,Urine Not Detected (NotDetected); Urn Cannabinoid Scrn Not Detected (NotDetected)
[2019-06-11 11:32] LABS: Appearance,Urine Cloudy (Clear); Bacteria,Urine Many /hpf; Bilirubin,Urine Negative (Negative); Blood,Urine Negative (Negative); Color,Urine Yellow; Glucose,Urine (UA) Negative (Negative); Ketones,Urine Negative (Negative); Leukocyte Esterase,Urine Negative (Negative); Mucus,Urine Occasional /hpf; Nitrite,Urine Positive (Negative); PH, Urine 7.5 (5.0-8.0); Protein,Urine Negative (Negative); RBC,Urine 1 /hpf (0-5); Specific Gravity,Urine 1.018 (1.001-1.035); Squamous Epithelial Cell,Urine <1 /hpf (0-4); Urobilinogen,Urine <2.0 mg/dL (<2.0); WBC,Urine 4 /hpf (0-5)
[2019-06-11 11:37] LABS: Poikilocytosis (M) Present
[2019-06-11 11:41] LABS: Neutrophils # (A) 0.3 k/uL (1.3-7.7)
--- NOTE | 2019-06-11 11:52 | XR ---
EXAMINATION TYPE: XR pelvis AP view DATE OF EXAM: 06/11/2019 CLINICAL HISTORY: Lower extremity weakness and confusion. TECHNIQUE: A single AP view of the pelvis is obtained. COMPARISON: None. FINDINGS: There is diffuse osseous demineralization. Degenerative changes of the lumbosacral junction are mild. There is no acute fracture/dislocation evident in the pelvis. The hip and sacroiliac join ts appear symmetric and unremarkable. The overlying soft tissue appears unremarkable. 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 Atherosclerosis is also noted. IMPRESSION: There is no acute fracture or dislocation in the pelvis.
[2019-06-11] MEDS ORDERED: IPRATROPIUM-ALBUTEROL 3 ML NEB INHALATION PRN (14:10)
[2019-06-11] MEDS ORDERED: NALOXONE 0.4 MG/ML 1 ML VIAL IV PRN (14:19)
[2019-06-11] MEDS ORDERED: ACETAMINOPHEN TAB 325 MG TAB PO PRN (14:19)
--- NOTE | 2019-06-11 14:22 | P.HPIM ---
History of Present Illness Patient is a 78-year-old doesn't female was brought in by her because of her generalized weakness patient normally uses a walker and walks around patient has been weak since it started today. Patient the believes patient may be confused as well although when I valid the patient patient is alert oriented 2-3 which is her baseline and over the patient from her previous hospitalization. Patient any fever chills or suprapubic pain chest pain. Patient was set of troponin is minimally elevated because of which are patient is being admitted for cardiac evaluation from ER. Patient does have history of from her arthritis was recently treated for pneumonia completed a course of Ceftin. Patient denied any dysuria suprapubic pain patient denied any fever chills at home. I did not see any evidence of infection at this time but her absolute neutrophil count is very low at 300. May be secondary to methotrexate, we'll repeat these labs tomorrow again. Will obtain physical the patient and occupational therapy consultation as of now I didn't see any obvious infection chest x-ray showing some interstitial changes. Review of Systems REVIEW OF SYSTEMS: CONSTITUTIONAL: No fever, no malaise, no fatigue. HEENT: No recent visual problems or hearing problems. Denied any sore throat. CARDIOVASCULAR: No chest pain, orthopnea, PND, no palpitations, no syncope. PULMONARY: No shortness of breath, no cough, no hemoptysis. GASTROINTESTINAL: No diarrhea, no nausea, no vomiting, no abdominal pain. NEUROLOGICAL: No headaches, no weakness, no numbness. HEMATOLOGICAL: Denies any bleeding or petechiae. GENITOURINARY: Denies any burning micturition, frequency, or urgency. MUSCULOSKELETAL/RHEUMATOLOGICAL: Denies any joint pain, swelling, or any muscle pain. ENDOCRINE: Denies any polyuria or polydipsia. The rest of the 14-point review of systems is negative. Past Medical History Past Medical History: Atrial Fibrillation, Asthma, COPD, GERD/Reflux Additional Past Medical History / Comment(s): migraines; osteoporosis History of Any Multi-Drug Resistant Organisms: ESBL Date of last positivie culture/infection: 06/05/18 MDRO Source:: esbl urine Past Surgical History: Appendectomy, Cholecystectomy, Hysterectomy, Tonsillectomy Additional Past Surgical History / Comment(s): D&C, colonoscopy, left knee scope, right arm surgery Past Anesthesia/Blood Transfusion Reactions: Motion Sickness Additional Past Anesthesia/Blood Transfusion Reaction / Comment(s): Pt states she has severe motion sickness Past Psychological History: No Psychological Hx Reported Smoking Status: Former smoker Past Alcohol Use History: None Reported Past Drug Use History: None Reported - Past Family History Mother Additional Family Medical History / Comment(s): Pt states mother had severe migraines and at the age of 43yrs while hospitalized with severe migraine but does not know cause of . Father Family Medical History: Myocardial Infarction ([place]) Additional Family Medical History / Comment(s): Father of a [place] at the age of 54yrs. Family Additional Family Medical History / Comment(s): Patient denies any history of coronary artery disease Medications and Allergies Home Medications Medication Instructions Recorded Confirmed Type Cholecalciferol (Vitamin D3) 2,000 unit PO DAILY 06/04/18 06/11/19 History [Vitamin D3] Esomeprazole Magnesium [NexIUM] 40 mg PO DAILY 06/04/18 06/11/19 History Fluticasone/Salmeterol [Advair 1 puff INHALATION RT-BID 06/05/18 06/11/19 History 250-50 Diskus] Folic Acid 1 mg PO DAILY 06/05/18 06/11/19 History Ipratropium [place] 0.06%Nasal 2 spray EA NOSTRIL TID 06/05/18 06/11/19 History [Atrovent Nasal 0.06%] Ipratropium/Albuterol Sulfate 1 puff INHALATION RT-QID PRN 06/05/18 06/11/19 History [Combivent Respimat Inhaler] Levothyroxine Sodium [Synthroid] 75 mcg PO DAILY 06/05/18 06/11/19 History Magnesium Oxide [Mag-Ox] 250 mg PO DAILY 06/05/18 06/11/19 History Methotrexate Sodium [Methotrexate] 20 mg PO FR 06/05/18 06/11/19 History Montelukast [Singulair] 10 mg PO HS 06/05/18 06/11/19 History [place]-3 Acid Ethyl Esters [Lovaza] 2 gm PO BID 06/05/18 06/11/19 History Topiramate [Topamax] 50 mg PO BID 06/05/18 06/11/19 History Apixaban [Eliquis] 5 mg PO BID tab 06/10/18 06/11/19 Rx Fremanezumab-Vfrm [Ajovy] 225 mg SQ Q30D 06/03/19 06/11/19 History HYDROcodone/APAP 7.5-325MG [[place] 1 tab PO Q6H PRN 06/03/19 06/11/19 History 7.5-325] traZODone HCL 50 mg PO HS 06/03/19 06/11/19 History Nystatin 100,000 Unit/gm Powd 1 applic TOPICAL BID #60 gm 06/05/19 06/11/19 Rx [Mycostatin Powder] Lisinopril 10 mg PO DAILY #0 06/06/19 06/11/19 Rx predniSONE See Taper PO DAILY 06/11/19 06/11/19 History Allergies Allergy/AdvReac Type Severity Reaction Status Date / Time adhesive tape Allergy Unknown Verified 06/11/19 09:53 ciprofloxacin [From Cipro] Allergy Unknown Verified 06/11/19 09:53 epinephrine Allergy Unknown Verified 06/11/19 09:53 latex Allergy Rash/Hives Verified 06/11/19 09:53 Penicillins Allergy Unknown Verified 06/11/19 09:53 povidone-iodine Allergy Unknown Verified 06/11/19 09:53 [From Betadine] soap [From Betadine] Allergy Unknown Verified 06/11/19 09:53 Sulfa (Sulfonamide Allergy Unknown Verified 06/11/19 09:53 Antibiotics) Tetanus Vaccines and Toxoid Allergy Unknown Verified 06/11/19 09:53 amitriptyline [From Elavil] AdvReac Confusion Verified 06/11/19 09:53 Physical Exam Vitals: Vital Signs Temp Pulse Resp BP Pulse Ox 06/11/19 09:35 98.9 F 93 22 135/78 97 Intake and Output 06/10/19 06/11/19 06/11/19 22:59 06:59 14:59 Other: Weight 66.224 kg PHYSICAL EXAMINATION: GENERAL: The patient is alert and oriented x3, not in any acute distress. Well developed, well nourished. HEENT: Pupils are round and equally reacting to light. EOMI. No scleral icterus. No conjunctival pallor. Normocephalic, atraumatic. No pharyngeal erythema. No th yromegaly. CARDIOVASCULAR: S1 and S2 present. No murmurs, rubs, or gallops. PULMONARY: Chest is clear to auscultation, no wheezing or crackles. ABDOMEN: Soft, nontender, nondistended, normoactive bowel sounds. No palpable organomegaly. MUSCULOSKELETAL: No joint swelling or deformity. EXTREMITIES: No cyanosis, clubbing, or pedal edema. NEUROLOGICAL: Gross neurological examination did not reveal any focal deficits. SKIN: No rashes. Results CBC & Chem 7: 06/11/19 10:06 06/11/19 10:06 Labs: Abnormal Lab Results - Last 24 Hours (Table) 06/11/19 06/11/19 06/11/19 Range/Units 10:06 10:06 10:06 WBC 1.3 L* (3.8-10.6) k/uL RBC 3.62 L (3.80-5.40) m/uL Hct 33.6 L (34.0-46.0) % RDW 16.4 H (11.5-15.5) % Plt Count 125 L (150-450) k/uL Neutrophils # 0.3 L* (1.3-7.7) k/uL Lymphocytes # 0.8 L (1.0-4.8) k/uL APTT 21.6 L (22.0-30.0) sec Chloride 110 H (98-107) mmol/L Carbon Dioxide 21 L (22-30) mmol/L BUN 20 H (7-17) mg/dL Glucose 124 H (74-99) mg/dL POC Glucose (mg/dL) (75-99) mg/dL Creatine Kinase 163 H (30-135) U/L Troponin I (0.000-0.034) ng/mL Total Protein 5.9 L (6.3-8.2) g/dL Albumin 3.2 L (3.5-5.0) g/dL Urine Appearance (Clear) Urine Nitrite (Negative) Urine Bacteria (None) /hpf Urine Mucus (None) /hpf 06/11/19 06/11/19 06/11/19 Range/Units 10:06 10:40 10:54 WBC (3.8-10.6) k/uL RBC (3.80-5.40) m/uL Hct (34.0-46.0) % RDW (11.5-15.5) % Plt Count (150-450) k/uL Neutrophils # (1.3-7.7) k/uL Lymphocytes # (1.0-4.8) k/uL APTT (22.0-30.0) sec Chloride (98-107) mmol/L Carbon Dioxide (22-30) mmol/L BUN (7-17) mg/dL Glucose (74-99) mg/dL POC Glucose (mg/dL) 112 H (75-99) mg/dL Creatine Kinase (30-135) U/L Troponin I 0.037 H* (0.000-0.034) ng/mL Total Protein (6.3-8.2) g/dL Albumin (3.5-5.0) g/dL Urine Appearance Cloudy H (Clear) Urine Nitrite Positive H (Negative) Urine Bacteria Many H (None) /hpf Urine Mucus Occasional H (None) /hpf Assessment and Plan Plan: -Generalized weakness and possible confusion and toxic encephalopathy may be related to medications trazodone will be discontinued patient will be monitored overnight physical therapy and occupational therapy to evaluate the patient. -neutropenia etiology is not clear although patient does not appear to be septic at this time will monitor with repeat cbc tomorrow may be medication related as well. -mild elevation of troponin to 0.037 and repeat 2 more sets of troponin patient doesn't have any chest pain ekg sinus rhythm with right bundle branch block. cardiology was consulted. my concern is extremely low for myocardial infarction -COPD without any acute exacerbation we'll hold off on systemic steroids for now -Migraine for which patient is on biologic agents reviewed the side effects of that medication neutropenia is not one of those. Patient is also on Topamax which will be continued -Hypertension -Related arthritis for which patient is on methotrexate which will be continued -Generalized weakness probably due to her recent hospitalization and medication- induced PT and OT will evaluate the patient -DVT prophylaxis early ambulation
[2019-06-11] MEDS: SODIUM CHLORIDE 0.9% 1,000 ML IV SCH (16:44)
[2019-06-11] MEDS: TOPIRAMATE 25 MG TAB PO SCH (20:34)
[2019-06-11] MEDS: APIXABAN 5 MG TAB PO SCH (20:34)
[2019-06-11] MEDS: NYSTATIN 100,000 UNIT/GM POWD 15 GM TOPICAL SCH (20:39)
[2019-06-11] MEDS: SYMBICORT 80-4.5 MCG INHALER INHALATION SCH (20:54)
[2019-06-11] MEDS ORDERED: HEPARIN SODIUM,PORCINE 5,000 UNIT/ML 1 ML VIAL SQ SCH (21:00)
[2019-06-11] MEDS ORDERED: MONTELUKAST 10 MG TAB PO SCH (21:00)
[2019-06-12] MEDS: SODIUM CHLORIDE 0.9% 1,000 ML IV SCH (04:33)
[2019-06-12 05:42] VITALS: BP 133/95; PULSE 113; RESP 20; TEMP 97.4
[2019-06-12] MEDS ORDERED: LEVOTHYROXINE 75 MCG TAB PO SCH (06:30)
[2019-06-12 07:17] LABS: Anisocytosis Slight; HCT 29.8 % (34.0-46.0); HGB 10.3 gm/dL (11.4-16.0); MCH 32.2 pg (25.0-35.0); MCHC 34.8 g/dL (31.0-37.0); MCV 92.8 fL (80.0-100.0); Mean Platelet Volume 6.7; Platelet Count 135 k/uL (150-450); RBC 3.21 m/uL (3.80-5.40); RDW 16.2 % (11.5-15.5); WBC 1.5 k/uL (3.8-10.6)
[2019-06-12] MEDS ORDERED: PANTOPRAZOLE 40 MG TABLET PO SCH (07:30)
[2019-06-12 07:31] LABS: African American GFR (CKD) >90 (>60 ml/min/1.73 sqM); Anion Gap 7 mmol/L; Blood Urea Nitrogen 13 mg/dL (7-17); Calcium 7.9 mg/dL (8.4-10.2); Carbon Dioxide 19 mmol/L (22-30); Chloride 111 mmol/L (98-107); Glucose 105 mg/dL (74-99); Potassium 3.5 mmol/L (3.5-5.1); Sodium 137 mmol/L (137-145)
[2019-06-12] MEDS: TOPIRAMATE 25 MG TAB PO SCH (08:01)
[2019-06-12] MEDS: APIXABAN 5 MG TAB PO SCH (08:01)
[2019-06-12] MEDS: NYSTATIN 100,000 UNIT/GM POWD 15 GM TOPICAL SCH (08:02)
[2019-06-12] MEDS ORDERED: MAGNESIUM OXIDE 400 MG TAB PO SCH (09:00)
[2019-06-12] MEDS ORDERED: LISINOPRIL 10 MG TAB PO SCH (09:00)
[2019-06-12] MEDS ORDERED: FOLIC ACID 1 MG TAB PO SCH (09:00)
[2019-06-12] MEDS: SYMBICORT 80-4.5 MCG INHALER INHALATION SCH (09:39)
--- NOTE | 2019-06-12 13:44 | P.DS ---
Providers Date of admission: 06/11/19 14:25 Attending physician: Rome Haro Primary care physician: Derik Hawley [facility] Course: 78-year-old doesn't female was brought in by her because of her generalized weakness patient normally uses a walker and walks around patient has been weak since it started today. Patient the believes patient may be confused as well although when I valid the patient patient is alert oriented 2- 3 which is her baseline and over the patient from her previous hospitalization. Patient any fever chills or suprapubic pain chest pain. Patient was set of troponin is minimally elevated because of which are patient is being admitted for cardiac evaluation from ER. Patient does have history of from her arthritis was recently treated for pneumonia completed a course of Ceftin. Patient denied any dysuria suprapubic pain patient denied any fever chills at home. I did not see any evidence of infection at this time but her absolute neutrophil count is very low at 300. May be secondary to methotrexate, we'll repeat these labs tomorrow again. Will obtain physical the patient and occupational therapy consultation as of now I didn't see any obvious infection chest x-ray showing some interstitial changes.her BNP is bit elevated to 20/50 although patient doesn't have any elevated JVD clinically doing well. 06/12/2019 UA is not impressive for urinary tract infection. Patient is clinically doing well with discontinuation of trazodone and [place] patient will be discharged today. Patient's bicarbonate has gone down because of hyperchloremia. PHYSICAL EXAMINATION: GENERAL: The patient is alert and oriented x3, not in any acute distress. Well developed, well nourished. HEENT: Pupils are round and equally reacting to light. EOMI. No scleral icterus. No conjunctival pallor. Normocephalic, atraumatic. No pharyngeal erythema. No thyromegaly. CARDIOVASCULAR: S1 and S2 present. No murmurs, rubs, or gallops. PULMONARY: Chest is clear to auscultation, no wheezing or crackles. ABDOMEN: Soft, nontender, nondistended, normoactive bowel sounds. No palpable organomegaly. MUSCULOSKELETAL: No joint swelling or deformity. EXTREMITIES: No cyanosis, clubbing, or pedal edema. NEUROLOGICAL: Gross neurological examination did not reveal any focal deficits. SKIN: No rashes. Assessment and Plan Plan: -Generalized weakness and possible confusion and toxic encephalopathy may be related to medications trazodone which was discontinued -neutropenia etiology is not clear although patient does not appear to be septic at this time, white blood cell count went up a bit no further intervention at this time -mild elevation of troponin to 0.037 patient doesn't have any chest pain ekg sinus rhythm with right bundle branch block. concern is extremely low for myocardial infarction -COPD without any acute exacerbation we'll hold off on systemic steroids for now -Migraine for which patient is on biologic agents reviewed the side effects of that medication neutropenia is not one of those. Patient is also on Topamax which will be continued -Hypertension -Related arthritis for which patient is on methotrexate which will be continued -Generalized weakness probably due to her recent hospitalization and medication- induced patient is ablating will not require any subacute rehabilitation. Patient Condition at Discharge: Fair Plan - Discharge Summary Discharge Rx Participant: No New Discharge Prescriptions: Discontinued traZODone HCL 50 mg PO HS HYDROcodone/APAP 7.5-325MG [[place] 7.5-325] 1 tab PO Q6H PRN PRN Reason: Pain No Action Cholecalciferol (Vitamin D3) [Vitamin D3] 2,000 unit PO DAILY Esomeprazole Magnesium [NexIUM] 40 mg PO DAILY Magnesium Oxide [Mag-Ox] 250 mg PO DAILY Topiramate [Topamax] 50 mg PO BID [place]-3 Acid Ethyl Esters [Lovaza] 2 gm PO BID Montelukast [Singulair] 10 mg PO HS Methotrexate Sodium [Methotrexate] 20 mg PO FR Levothyroxine Sodium [Synthroid] 75 mcg PO DAILY Ipratropium/Albuterol Sulfate [Combivent Respimat Inhaler] 1 puff INHALATION RT-QID PRN PRN Reason: Shortness Of Breath Ipratropium [place] 0.06%Nasal [Atrovent Nasal 0.06%] 2 spray EA NOSTRIL TID Folic Acid 1 mg PO DAILY Fluticasone/Salmeterol [Advair 250-50 Diskus] 1 puff INHALATION RT-BID Apixaban [Eliquis] 5 mg PO BID tab Fremanezumab-Vfrm [Ajovy] 225 mg SQ Q30D Nystatin 100,000 Unit/gm Powd [Mycostatin Powder] 1 applic TOPICAL BID #60 gm Lisinopril 10 mg PO DAILY #0 predniSONE See Taper PO DAILY Discharge Medication List Cholecalciferol (Vitamin D3) [Vitamin D3] 2,000 unit PO DAILY 06/04/18 [History] Esomeprazole Magnesium [NexIUM] 40 mg PO DAILY 06/04/18 [History] Fluticasone/Salmeterol [Advair 250-50 Diskus] 1 puff INHALATION RT-BID 06/05/18 [History] Folic Acid 1 mg PO DAILY 06/05/18 [History] Ipratropium [place] 0.06%Nasal [Atrovent Nasal 0.06%] 2 spray EA NOSTRIL TID 06/05/18 [History] Ipratropium/Albuterol Sulfate [Combivent Respimat Inhaler] 1 puff INHALATION RT- QID PRN 06/05/18 [History] Levothyroxine Sodium [Synthroid] 75 mcg PO DAILY 06/05/18 [History] Magnesium Oxide [Mag-Ox] 250 mg PO DAILY 06/05/18 [History] Methotrexate Sodium [Methotrexate] 20 mg PO FR 06/05/18 [History] Montelukast [Singulair] 10 mg PO HS 06/05/18 [History] [place]-3 Acid Ethyl Esters [Lovaza] 2 gm PO BID 06/05/18 [History] Topiramate [Topamax] 50 mg PO BID 06/05/18 [History] Apixaban [Eliquis] 5 mg PO BID tab 06/10/18 [Rx] Fremanezumab-Vfrm [Ajovy] 225 mg SQ Q30D 06/03/19 [History] Nystatin 100,000 Unit/gm Powd [Mycostatin Powder] 1 applic TOPICAL BID #60 gm 06/05/19 [Rx] Lisinopril 10 mg PO DAILY #0 06/06/19 [Rx] predniSONE See Taper PO DAILY 06/11/19 [History] Follow up Appointment(s)/Referral(s): Derik Hawley MD [Primary Care Provider] - 06/20/19 1:30 pm () Patient Instructions/Handouts: Weakness (DC) Discharge Disposition: HOME SELF-CARE
[2019-06-15] MEDS ORDERED: METHOTREXATE SODIUM 2.5 MG TAB PO SCH (09:00)
== END 2019-06-12 13:32 | disposition home or self-care (01) ==
LOC: EC 09:25 → 4MS4W 14:25
PROVIDERS: ADMIT Internal Medicine; ATTEND Internal Medicine
DX: R53.1 Weakness (principal); R41.82 Altered mental status, unspecified; E86.0 Dehydration; D70.9 Neutropenia, unspecified; R79.89 Other specified abnormal findings of blood chemistry; I45.10 Unspecified right bundle-branch block; J44.9 Chronic obstructive pulmonary disease, unspecified; G43.909 Migraine, unspecified, not intractable, without status migrainosus; I10 Essential (primary) hypertension; I67.9 Cerebrovascular disease, unspecified; M06.9 Rheumatoid arthritis, unspecified; R26.2 Difficulty in walking, not elsewhere classified; M54.5 Low back pain; K21.9 Gastro-esophageal reflux disease without esophagitis; E87.8 Other disorders of electrolyte and fluid balance, not elsewhere classified; I48.91 Unspecified atrial fibrillation; J98.11 Atelectasis; M81.0 Age-related osteoporosis without current pathological fracture; Z79.01 Long term (current) use of anticoagulants; Z79.890 Hormone replacement therapy; Z79.51 Long term (current) use of inhaled steroids; Z79.52 Long term (current) use of systemic steroids; Z79.899 Other long term (current) drug therapy; Z88.0 Allergy status to penicillin; Z88.1 Allergy status to other antibiotic agents; Z88.2 Allergy status to sulfonamides; Z88.7 Allergy status to serum and vaccine; Z88.8 Allergy status to other drugs, medicaments and biological substances; Z91.048 Other nonmedicinal substance allergy status; Z91.040 Latex allergy status; Z16.12 Extended spectrum beta lactamase (ESBL) resistance; Z90.49 Acquired absence of other specified parts of digestive tract; Z90.710 Acquired absence of both cervix and uterus; Z87.891 Personal history of nicotine dependence; Z87.440 Personal history of urinary (tract) infections; Z87.01 Personal history of pneumonia (recurrent); Z82.0 Family history of epilepsy and other diseases of the nervous system; Z82.49 Family history of ischemic heart disease and other diseases of the circulatory system
CPT/HCPCS: 96361 ×2; 96360; 99285; 36415; 94640 ×2; 93005; 97162; 97166; 83880; 80053; 80048; 82550; 84484; 85025; 85027; 85610; 85730; 81001; 80306; 72170; 71046; 70450; G0378 ×2

== ENCOUNTER 2021-04-19 20:35 | Emergency (ER) | payer MEDICARE, BC ==
[2021-04-19 20:44] VITALS: RESP 16; TEMP 98.4
[2021-04-19] MEDS ORDERED: MORPHINE SULFATE 4 MG/ML SYRINGE IM STA (21:45)
--- NOTE | 2021-04-19 21:45 | ED ---
Lower Extremity Injury HPI - General Chief Complaint: Extremity Injury, Lower Stated Complaint: Leg Pain Time Seen by Provider: 04/19/21 21:23 Source: patient, EMS, RN notes reviewed, old records reviewed Mode of arrival: EMS Limitations: no limitations - History of Present Illness Initial Comments: This is a 80-year-old female DF for evaluation patient Dese for evaluation of hip pain 1 week of hip pain after fall. Patient states the pain has been pretty persistent but she is been able to amply. The pain was just worse tonight and has the past no difficulties with bowel movements. No loss of bowel or bladder. No modifying factors for pain MD Complaint: hip injury, knee injury, leg injury -: week(s) Injury: Pelvis: Left, Thigh: Left, Leg: Left Type of Injury: blunt Place: home Severity: mild Severity scale (1-10): 1 Worsens With: weight bearing Context: fall Associated Symptoms: able to partially bear weight, ambulatory Treatments Prior to Arrival: other (none) - Related Data Home Medications Medication Instructions Recorded Confirmed Cholecalciferol (Vitamin D3) 2,000 unit PO DAILY 06/04/18 06/11/19 [Vitamin D3] Esomeprazole Magnesium [NexIUM] 40 mg PO DAILY 06/04/18 06/11/19 Fluticasone/Salmeterol [Advair 1 puff INHALATION RT-BID 06/05/18 06/11/19 250-50 Diskus] Folic Acid 1 mg PO DAILY 06/05/18 06/11/19 Ipratropium [place] 0.06%Nasal 2 spray EA NOSTRIL TID 06/05/18 06/11/19 [Atrovent Nasal 0.06%] Ipratropium/Albuterol Sulfate 1 puff INHALATION RT-QID PRN 06/05/18 06/11/19 [Combivent Respimat Inhaler] Levothyroxine Sodium [Synthroid] 75 mcg PO DAILY 06/05/18 06/11/19 Magnesium Oxide [Mag-Ox] 250 mg PO DAILY 06/05/18 06/11/19 Montelukast [Singulair] 10 mg PO HS 06/05/18 06/11/19 [place]-3 Acid Ethyl Esters [Lovaza] 2 gm PO BID 06/05/18 06/11/19 Topiramate [Topamax] 50 mg PO BID 06/05/18 06/11/19 metHOTREXate sodium [Methotrexate] 20 mg PO FR 06/05/18 06/11/19 Fremanezumab-Vfrm [Ajovy Syringe] 225 mg SQ Q30D 06/03/19 06/11/19 predniSONE See Taper PO DAILY 06/11/19 06/11/19 Previous Rx's Medication Instructions Recorded Apixaban [Eliquis] 5 mg PO BID tab 06/10/18 Nystatin 100,000 Unit/gm Powd 1 applic TOPICAL BID #60 gm 06/05/19 [Mycostatin Powder] lisinopriL 10 mg PO DAILY #0 06/06/19 Allergies Allergy/AdvReac Type Severity Reaction Status Date / Time adhesive tape Allergy Unknown Verified 06/11/19 09:53 ciprofloxacin [From Cipro] Allergy Unknown Verified 06/11/19 09:53 epinephrine Allergy Unknown Verified 06/11/19 09:53 latex Allergy Rash/Hives Verified 06/11/19 09:53 Penicillins Allergy Unknown Verified 06/11/19 09:53 povidone-iodine Allergy Unknown Verified 06/11/19 09:53 [From Betadine] soap [From Betadine] Allergy Unknown Verified 06/11/19 09:53 Sulfa (Sulfonamide Allergy Unknown Verified 06/11/19 09:53 Antibiotics) Tetanus Vaccines and Toxoid Allergy Unknown Verified 06/11/19 09:53 amitriptyline [From Elavil] AdvReac Confusion Verified 06/11/19 09:53 Review of Systems ROS Statement: Those systems with pertinent positive or pertinent negative responses have been documented in the HPI. ROS Other: All systems not noted in ROS Statement are negative. Past Medical History Past Medical History: Atrial Fibrillation, Asthma, COPD, Eye Disorder, GERD/Reflux, Hypertension, Rheumatoid Arthritis (RA), Thyroid Disorder Additional Past Medical History / Comment(s): Pt recently admitted to [facility] on 06/04/19 with UTI/R side pneumonia with sepsis, mita r groin. Other hx: Macular degeneration bilaterally-legally blind, rheumatoid arthritis in multple joints, osteoporosis, migraines, hypothyroid, urinary incontinence at times. History of Any Multi-Drug Resistant Organisms: ESBL Date of last positivie culture/infection: 06/05/18 MDRO Source:: esbl urine Past Surgical History: Appendectomy, Cholecystectomy, Hysterectomy, Orthopedic Surgery, Tonsillectomy Additional Past Surgical History / Comment(s): D&C, colonoscopy, left knee scope, right arm ORIF. Past Anesthesia/Blood Transfusion Reactions: Motion Sickness Additional Past Anesthesia/Blood Transfusion Reaction / Comment(s): Pt states she has severe motion sickness Past Psychological History: No Psychological Hx Reported Smoking Status: Former smoker Past Alcohol Use History: None Reported Past Drug Use History: None Reported - Past Family History Mother Additional Family Medical History / Comment(s): Pt states mother had severe migraines and at the age of 43yrs while hospitalized with severe migraine but does not know cause of . Father Family Medical History: Myocardial Infarction ([place]) Additional Family Medical History / Comment(s): Father of a [place] at the age of 54yrs. Family Additional Family Medical History / Comment(s): Patient denies any history of coronary artery disease General Exam Limitations: no limitations General appearance: alert, in no apparent distress, anxious Head exam: Present: atraumatic, normocephalic, normal inspection Eye exam: Present: normal appearance, PERRL, EOMI. Absent: scleral icterus, conjunctival injection, periorbital swelling ENT exam: Present: normal exam, mucous membranes moist Neck exam: Present: normal inspection. Absent: tenderness, meningismus, lymphadenopathy Respiratory exam: Present: normal lung sounds bilaterally. Absent: respiratory distress, wheezes, rales, rhonchi, stridor Cardiovascular Exam: Present: regular rate, normal rhythm, normal heart sounds. Absent: systolic murmur, diastolic murmur, rubs, gallop, clicks GI/Abdominal exam: Present: soft, normal bowel sounds. Absent: distended, tenderness, guarding, rebound, rigid Extremities exam: Present: normal inspection, full ROM, normal capillary refill. Absent: tenderness, pedal edema, joint swelling, calf tenderness Back exam: Present: normal inspection Neurological exam: Present: alert, oriented X3, CN II-XII intact Psychiatric exam: Present: normal affect, normal mood Skin exam: Present: warm, dry, intact, normal color. Absent: rash Course Vital Signs 04/19/21 04/19/21 20:38 22:50 Temperature 98.4 F Pulse Rate 83 78 Respiratory 16 16 Rate Blood Pressure 149/77 103/57 O2 Sat by Pulse 97 98 Oximetry - Reevaluation(s) Reevaluation #1: Medical record is reviewed Patient symptoms are improved here in the emergency department Patient informed of results and questions answered Patient is in no acute distress Medical Decision Making - Medical Decision Making 80 female with nonspecific left lower extremity pain. No acute cause of pain found here in the ER patient can be discharged home - Lab Data Lab Results 04/19/21 Range/Units 22:24 Urine Color Yellow Urine Appearance Cloudy H (Clear) Urine pH 6.5 (5.0-8.0) Ur Specific [place] 1.022 (1.001-1.035) Urine Protein Trace H (Negative) Urine Glucose (UA) Negative (Negative) Urine Ketones Negative (Negative) Urine Blood Negative (Negative) Urine Nitrite Positive H (Negative) Urine Bilirubin Negative (Negative) Urine Urobilinogen 3.0 (<2.0) mg/dL Ur Leukocyte Esterase Large H (Negative) Urine RBC 2 (0-5) /hpf Urine WBC 108 H (0-5) /hpf Ur Squamous Epith Cells <1 (0-4) /hpf Urine Bacteria Moderate H (None) /hpf Hyaline Casts 1 (0-2) /lpf Urine Mucus Rare H (None) /hpf - Radiology Data Radiology results: report reviewed (X-ray hip pelvis and left lower extremity negative for traumatic injury), image reviewed Disposition Clinical Impression: Left leg pain Disposition: HOME SELF-CARE Condition: Good Instructions (If sedation given, give patient instructions): Leg Pain (ED) Is patient prescribed a controlled substance at d/c from ED?: No Referrals: Derik Hawley MD [Primary Care Provider] - 1-2 days
--- NOTE | 2021-04-19 22:08 | XR ---
EXAMINATION TYPE: XR femur LT DATE OF EXAM: 04/19/2021 COMPARISON: NONE HISTORY: Leg pain TECHNIQUE: 4 views FINDINGS: Knee joint is intact. The hip joint is intact. I see no fracture nor dislocation. There are multiple rounded calcifications in the soft tissues consistent with injection sites. Sacroiliac join t is intact. I see no focal bone destruction. There is some minimal vascular calcification. IMPRESSION: No acute abnormality of the left femur.
--- NOTE | 2021-04-19 22:11 | XR ---
EXAMINATION TYPE: XR tibia fibula LT DATE OF EXAM: 04/19/2021 COMPARISON: None. Left tibia and fibula 4 views. History pain. FINDINGS: The ankle mortise is anatomic. Knee joint appears anatomic. There is plantar and Achilles calcaneal s pur formation. There is no sign of knee joint effusion. Joint spaces are fairly normal. IMPRESSION: No acute abnormality of the left tibia and fibula.
--- NOTE | 2021-04-19 22:13 | XR ---
EXAMINATION TYPE: XR Hip LT and AP Pelvis DATE OF EXAM: 04/19/2021 COMPARISON: NONE HISTORY: Pain TECHNIQUE: 3 views FINDINGS: The pelvic ring is intact. Proximal left femur and hip joint appear intact. The sacroiliac joints are intact. There are numerous calcified granulomata over the iliac bone to relate to injectio n sites. IMPRESSION: Negative pelvis and left hip exam. No fracture.
[2021-04-19 22:34] LABS: Appearance,Urine Cloudy (Clear); Bacteria,Urine Moderate /hpf; Bilirubin,Urine Negative (Negative); Blood,Urine Negative (Negative); Color,Urine Yellow; Glucose,Urine (UA) Negative (Negative); Hyaline Casts,Urine 1 /lpf (0-2); Ketones,Urine Negative (Negative); Leukocyte Esterase,Urine Large (Negative); Mucus,Urine Rare /hpf; Nitrite,Urine Positive (Negative); PH, Urine 6.5 (5.0-8.0); Protein,Urine Trace (Negative); RBC,Urine 2 /hpf (0-5); Specific Gravity,Urine 1.022 (1.001-1.035); Squamous Epithelial Cell,Urine <1 /hpf (0-4); WBC,Urine 108 /hpf (0-5)
[2021-04-19] MEDS ORDERED: ACET/COD 300 MG/30 MG STARTER PACK 6 TAB BTL PO STA (22:35)
[2021-04-19 23:05] VITALS: BP 103/57; PULSE 78
== END 2021-04-19 23:20 | disposition home or self-care (01) ==
LOC: EC 20:35
DX: M79.605 Pain in left leg (principal); I10 Essential (primary) hypertension; I48.91 Unspecified atrial fibrillation; J44.9 Chronic obstructive pulmonary disease, unspecified; E03.9 Hypothyroidism, unspecified; K21.9 Gastro-esophageal reflux disease without esophagitis; M06.9 Rheumatoid arthritis, unspecified; M81.0 Age-related osteoporosis without current pathological fracture; Z79.01 Long term (current) use of anticoagulants; Z79.51 Long term (current) use of inhaled steroids; Z79.52 Long term (current) use of systemic steroids; Z79.890 Hormone replacement therapy; Z79.899 Other long term (current) drug therapy; Z87.891 Personal history of nicotine dependence; Z88.0 Allergy status to penicillin; Z88.1 Allergy status to other antibiotic agents; Z88.2 Allergy status to sulfonamides; Z88.8 Allergy status to other drugs, medicaments and biological substances; W19.XXXA Unspecified fall, initial encounter
CPT/HCPCS: 81001; 87086; 87077; 87186; 73502; 73552; 73590; 99284; 96372; J2270

== ENCOUNTER 2021-12-19 19:30 | Emergency (ER) | payer MEDICARE, BC ==
[2021-12-19 20:16] VITALS: TEMP 96.8
[2021-12-19 21:52] VITALS: RESP 18
[2021-12-19] MEDS ORDERED: LIDOCAINE 1% INJ 10MG/ML (20 ML MDV) SQ ONE (23:08)
[2021-12-19] MEDS ORDERED: IBUPROFEN 600 MG TAB PO STA (23:08)
[2021-12-19] MEDS ORDERED: HYDROcodone/APAP 5-325MG 1 EACH TAB PO STA (23:09)
--- NOTE | 2021-12-19 23:55 | ED ---
Lower Extremity Injury HPI - General Chief Complaint: Extremity Injury, Lower Stated Complaint: Fall-foot injury Time Seen by Provider: 12/19/21 21:32 Source: patient Mode of arrival: ambulatory Limitations: no limitations - History of Present Illness Initial Comments: Patient is 81-year-old woman who states that she fell and she fell she struck her left great toe against furniture, and in the process has avulsed the nail. There was some bleeding which was stopped with pressure. The patient does have pain any time they nail is moved. MD Complaint: other -: hour(s) Injury: Toes: Left Type of Injury: blunt Place: home Severity: moderate Improves With: nothing Worsens With: palpation Context: fall, direct blow - Related Data Home Medications Medication Instructions Recorded Confirmed Cholecalciferol (Vitamin D3) 2,000 unit PO DAILY 06/04/18 06/11/19 [Vitamin D3] Esomeprazole Magnesium [NexIUM] 40 mg PO DAILY 06/04/18 06/11/19 Fluticasone/Salmeterol [Advair 1 puff INHALATION RT-BID 06/05/18 06/11/19 250-50 Diskus] Folic Acid 1 mg PO DAILY 06/05/18 06/11/19 Ipratropium [place] 0.06%Nasal 2 spray EA NOSTRIL TID 06/05/18 06/11/19 [Atrovent Nasal 0.06%] Ipratropium/Albuterol Sulfate 1 puff INHALATION RT-QID PRN 06/05/18 06/11/19 [Combivent Respimat Inhaler] Levothyroxine Sodium [Synthroid] 75 mcg PO DAILY 06/05/18 06/11/19 Magnesium Oxide [Mag-Ox] 250 mg PO DAILY 06/05/18 06/11/19 Montelukast [Singulair] 10 mg PO HS 06/05/18 06/11/19 [place]-3 Acid Ethyl Esters [Lovaza] 2 gm PO BID 06/05/18 06/11/19 Topiramate [Topamax] 50 mg PO BID 06/05/18 06/11/19 metHOTREXate sodium [Methotrexate] 20 mg PO FR 06/05/18 06/11/19 Fremanezumab-Vfrm [Ajovy Syringe] 225 mg SQ Q30D 06/03/19 06/11/19 predniSONE See Taper PO DAILY 06/11/19 06/11/19 Previous Rx's Medication Instructions Recorded Apixaban [Eliquis] 5 mg PO BID tab 06/10/18 Nystatin 100,000 Unit/gm Powd 1 applic TOPICAL BID #60 gm 06/05/19 [Mycostatin Powder] lisinopriL 10 mg PO DAILY #0 06/06/19 Allergies Allergy/AdvReac Type Severity Reaction Status Date / Time adhesive tape Allergy Unknown Verified 12/19/21 20:13 ciprofloxacin [From Cipro] Allergy Unknown Verified 12/19/21 20:13 epinephrine Allergy Unknown Verified 12/19/21 20:13 latex Allergy Rash/Hives Verified 12/19/21 20:13 Penicillins Allergy Unknown Verified 12/19/21 20:13 povidone-iodine Allergy Unknown Verified 12/19/21 20:13 [From Betadine] soap [From Betadine] Allergy Unknown Verified 12/19/21 20:13 Sulfa (Sulfonamide Allergy Unknown Verified 12/19/21 20:13 Antibiotics) Tetanus Vaccines and Toxoid Allergy Unknown Verified 12/19/21 20:13 amitriptyline [From Elavil] AdvReac Confusion Verified 12/19/21 20:13 Review of Systems ROS Statement: Those systems with pertinent positive or pertinent negative responses have been documented in the HPI. ROS Other: All systems not noted in ROS Statement are negative. Constitutional: Denies: fever Respiratory: Denies: dyspnea Cardiovascular: Denies: chest pain, palpitations Musculoskeletal: Reports: as per HPI Neurological: Denies: weakness, numbness Past Medical History Past Medical History: Atrial Fibrillation, Asthma, COPD, Eye Disorder, GERD/Reflux, Hypertension, Rheumatoid Arthritis (RA), Thyroid Disorder Additional Past Medical History / Comment(s): Pt recently admitted to [facility] on 06/04/19 with UTI/R side pneumonia with sepsis, mita r groin. Other hx: Macular degeneration bilaterally-legally blind, rheumatoid arthritis in multple joints, osteoporosis, migraines, hypothyroid, urinary incontinence at times. History of Any Multi-Drug Resistant Organisms: ESBL Date of last positivie culture/infection: 06/05/18 MDRO Source:: esbl urine Past Surgical History: Appendectomy, Cholecystectomy, Hysterectomy, Orthopedic Surgery, Tonsillectomy Additional Past Surgical History / Comment(s): D&C, colonoscopy, left knee scope, right arm ORIF. Past Anesthesia/Blood Transfusion Reactions: Motion Sickness Additional Past Anesthesia/Blood Transfusion Reaction / Comment(s): Pt states she has severe motion sickness Past Psychological History: No Psychological Hx Reported Smoking Status: Former smoker Past Alcohol Use History: None Reported Past Drug Use History: None Reported - Past Family History Mother Additional Family Medical History / Comment(s): Pt states mother had severe migraines and at the age of 43yrs while hospitalized with severe migraine but does not know cause of . Father Family Medical History: Myocardial Infarction ([place]) Additional Family Medical History / Comment(s): Father of a [place] at the age of 54yrs. Family Additional Family Medical History / Comment(s): Patient denies any history of coronary artery disease General Exam Limitations: no limitations Head exam: Present: atraumatic, normocephalic Neck exam: Absent: tenderness Respiratory exam: Present: normal lung sounds bilaterally. Absent: respiratory distress, wheezes, rales, rhonchi, stridor, chest wall tenderness Cardiovascular Exam: Present: regular rate, normal rhythm, normal heart sounds GI/Abdominal exam: Present: soft. Absent: tenderness Extremities exam: Present: other (The nail of the left great toe has been avulsed and remains attached only to skin. No evident deformity. There does not appear to be a laceration to the nailbed.) Neurological exam: Present: alert. Absent: motor sensory deficit Skin exam: Present: warm, dry, intact, normal color Course Vital Signs 12/19/21 12/19/21 12/20/21 20:13 21:45 00:00 Temperature 96.8 F L Pulse Rate 100 87 87 Respiratory 16 18 18 Rate Blood Pressure 96/52 112/72 142/68 O2 Sat by Pulse 98 98 97 Oximetry 12/20/21 01:53 Temperature Pulse Rate 83 Respiratory 18 Rate Blood Pressure 145/62 O2 Sat by Pulse 99 Oximetry Medical Decision Making - Medical Decision Making Patient 81-year-old woman with avulsion of the nail of the left first toe. I discussed options with her and at this point she states that she would like the nail removed rather than replaced. Discussed that this will result in probably the nail not going back. Patient as accepting of this. I did provide digital block of the left first toe and then removed the attachment that remained of the nail. Patient tolerated this well. Disposition Clinical Impression: Nail avulsion of toe Disposition: HOME SELF-CARE Condition: Good Instructions (If sedation given, give patient instructions): Nail Avulsion (ED) Is patient prescribed a controlled substance at d/c from ED?: No Referrals: Derik Hawley MD [Primary Care Provider] - 1-2 days
--- NOTE | 2021-12-20 00:18 | XR ---
EXAMINATION TYPE: XR foot complete LT DATE OF EXAM: 12/20/2021 COMPARISON: NONE HISTORY: Foot pain TECHNIQUE: 3 views FINDINGS: There is soft tissue swelling of the forefoot. Metatarsals are intact. I see no fracture no r dislocation. There is Achilles calcaneal spurring. There are no erosions. There is no subluxation. IMPRESSION: Soft tissue swelling. No fracture seen.
[2021-12-20] MEDS ORDERED: SILVER NITRATE APPLICATOR 1 EACH STICK..EA. TOPICAL STA (01:08)
[2021-12-20 02:01] VITALS: BP 145/62; PULSE 83
== END 2021-12-20 02:55 | disposition home or self-care (01) ==
LOC: EC 19:30
DX: S91.202A Unspecified open wound of left great toe with damage to nail, initial encounter (principal); I10 Essential (primary) hypertension; I48.91 Unspecified atrial fibrillation; J44.9 Chronic obstructive pulmonary disease, unspecified; K21.9 Gastro-esophageal reflux disease without esophagitis; M06.9 Rheumatoid arthritis, unspecified; E03.9 Hypothyroidism, unspecified; Z87.891 Personal history of nicotine dependence; Z79.01 Long term (current) use of anticoagulants; Z79.890 Hormone replacement therapy; Z79.52 Long term (current) use of systemic steroids; Z79.899 Other long term (current) drug therapy; W19.XXXA Unspecified fall, initial encounter; W22.03XA Walked into furniture, initial encounter; Y92.009 Unspecified place in unspecified non-institutional (private) residence as the place of occurrence of the external cause
CPT/HCPCS: 73630; 99284; J2001

== ENCOUNTER 2022-03-14 12:36 | Inpatient (IN) | payer MEDICARE, BC ==
[2022-03-14] MEDS ORDERED: SODIUM CHLORIDE 0.9% 500 ML 500 ML IV ONE (12:54)
--- NOTE | 2022-03-14 13:36 | ED ---
General Adult HPI - General Chief complaint: Altered Mental Status Stated complaint: diarrhea, altered Time Seen by Provider: 03/14/22 12:48 Source: EMS, RN notes reviewed, old records reviewed Mode of arrival: EMS Limitations: altered mental status - History of Present Illness Initial comments: 81-year-old female presents with increased confusion. Report from paramedics state that the family was concerned for increased confusion over the past one to 2 days and there was concern for urinary tract infection. Patient denies complaints herself, no chest pain or abdominal pain. No reported fever. She denies vomiting. No headache. - Related Data Home Medications Medication Instructions Recorded Confirmed Cholecalciferol (Vitamin D3) 2,000 unit PO DAILY 06/04/18 06/11/19 [Vitamin D3] Esomeprazole Magnesium [NexIUM] 40 mg PO DAILY 06/04/18 06/11/19 Fluticasone Propion/Salmeterol 1 puff INHALATION RT-BID 06/05/18 06/11/19 [Advair 250-50 Diskus] Folic Acid 1 mg PO DAILY 06/05/18 06/11/19 Ipratropium [place] 0.06%Nasal 2 spray EA NOSTRIL TID 06/05/18 06/11/19 [Atrovent Nasal 0.06%] Ipratropium/Albuterol Sulfate 1 puff INHALATION RT-QID PRN 06/05/18 06/11/19 [Combivent Respimat Inhaler] Levothyroxine Sodium [Synthroid] 75 mcg PO DAILY 06/05/18 06/11/19 Magnesium Oxide [Mag-Ox] 250 mg PO DAILY 06/05/18 06/11/19 Montelukast [Singulair] 10 mg PO HS 06/05/18 06/11/19 [place]-3 Acid Ethyl Esters [Lovaza] 2 gm PO BID 06/05/18 06/11/19 Topiramate [Topamax] 50 mg PO BID 06/05/18 06/11/19 metHOTREXate sodium [Methotrexate] 20 mg PO FR 06/05/18 06/11/19 Fremanezumab-Vfrm [Ajovy Syringe] 225 mg SQ Q30D 06/03/19 06/11/19 predniSONE See Taper PO DAILY 06/11/19 06/11/19 Previous Rx's Medication Instructions Recorded Apixaban [Eliquis] 5 mg PO BID tab 06/10/18 Nystatin 100,000 Unit/gm Powd 1 applic TOPICAL BID #60 gm 06/05/19 [Mycostatin Powder] lisinopriL 10 mg PO DAILY #0 06/06/19 Allergies Allergy/AdvReac Type Severity Reaction Status Date / Time adhesive tape Allergy Unknown Verified 03/14/22 12:43 ciprofloxacin [From Cipro] Allergy Unknown Verified 03/14/22 12:43 epinephrine Allergy Unknown Verified 03/14/22 12:43 latex Allergy Rash/Hives Verified 03/14/22 12:43 Penicillins Allergy Unknown Verified 03/14/22 12:43 povidone-iodine Allergy Unknown Verified 03/14/22 12:43 [From Betadine] soap [From Betadine] Allergy Unknown Verified 03/14/22 12:43 Sulfa (Sulfonamide Allergy Unknown Verified 03/14/22 12:43 Antibiotics) Tetanus Vaccines and Toxoid Allergy Unknown Verified 03/14/22 12:43 amitriptyline [From Elavil] AdvReac Confusion Verified 03/14/22 12:43 Review of Systems ROS Statement: Those systems with pertinent positive or pertinent negative responses have been documented in the HPI. ROS Other: All systems not noted in ROS Statement are negative. Past Medical History Past Medical History: Atrial Fibrillation, Asthma, COPD, Eye Disorder, GERD/Reflux, Hypertension, Rheumatoid Arthritis (RA), Thyroid Disorder Additional Past Medical History / Comment(s): Pt recently admitted to [facility] on 06/04/19 with UTI/R side pneumonia with sepsis, mita r groin. Other hx: Macular degeneration bilaterally-legally blind, rheumatoid arthritis in multple joints, osteoporosis, migraines, hypothyroid, urinary incontinence at times. History of Any Multi-Drug Resistant Organisms: ESBL Date of last positivie culture/infection: 06/05/18 MDRO Source:: esbl urine Past Surgical History: Appendectomy, Cholecystectomy, Hysterectomy, Orthopedic Surgery, Tonsillectomy Additional Past Surgical History / Comment(s): D&C, colonoscopy, left knee scope, right arm ORIF. Past Anesthesia/Blood Transfusion Reactions: Motion Sickness Additional Past Anesthesia/Blood Transfusion Reaction / Comment(s): Pt states she has severe motion sickness Past Psychological History: No Psychological Hx Reported Smoking Status: Former smoker Past Alcohol Use History: None Reported Past Drug Use History: None Reported - Past Family History Mother Additional Family Medical History / Comment(s): Pt states mother had severe migraines and at the age of 43yrs while hospitalized with severe migraine but does not know cause of . Father Family Medical History: Myocardial Infarction ([place]) Additional Family Medical History / Comment(s): Father of a [place] at the age of 54yrs. Family Additional Family Medical History / Comment(s): Patient denies any history of coronary artery disease General Exam Limitations: altered mental status General appearance: alert, in no apparent distress Head exam: Present: atraumatic, normocephalic Eye exam: Present: normal appearance, PERRL ENT exam: Present: mucous membranes dry Neck exam: Present: normal inspection. Absent: tenderness, meningismus Respiratory exam: Present: normal lung sounds bilaterally. Absent: respiratory distress, wheezes Cardiovascular Exam: Present: regular rate, normal rhythm GI/Abdominal exam: Present: soft. Absent: distended, tenderness, guarding Extremities exam: Present: normal inspection, normal capillary refill Neurological exam: Present: alert, CN II-XII intact. Absent: oriented X3, motor sensory deficit Skin exam: Present: warm, dry, intact. Absent: cyanosis, diaphoretic Course Vital Signs 03/14/22 12:40 Temperature 99.5 F Pulse Rate 92 Respiratory 18 Rate Blood Pressure 189/86 O2 Sat by Pulse 95 Oximetry EKG Findings - EKG Comments: EKG Findings:: EKG: Sinus rhythm left axis, incomplete right bundle-branch block, rate of 92, CA interval 156, QRS duration 113, QTC 443 Medical Decision Making - Medical Decision Making 81-year-old female was presented with increased confusion. The history is limited and there is no family available. According to paramedics had noted an increased confusion and altered mental status over the past one to 2 days. Patient does not have any focal findings. Her head CT shows chronic changes without acute process. Chest x-ray shows possibility of pulmonary vascular congestion. A BNP, troponin and venous gas has been added onto her laboratory testing. She has mild leukocytosis of uncertain etiology. She has no pain complaints. She has normal white lites, negative urinalysis. Case discussed with Dr. Cummings who will admit. - Lab Data Result diagrams: 03/14/22 13:01 03/14/22 13:01 Lab Results 03/14/22 03/14/22 03/14/22 Range/Units 13:01 13:01 13:01 WBC 12.9 H (3.8-10.6) k/uL RBC 3.91 (3.80-5.40) m/uL Hgb 12.6 (11.4-16.0) gm/dL Hct 38.3 (34.0-46.0) % MCV 97.8 (80.0-100.0) fL MCH 32.2 (25.0-35.0) pg MCHC 32.9 (31.0-37.0) g/dL RDW 15.4 (11.5-15.5) % Plt Count 267 (150-450) k/uL MPV 7.3 Neutrophils % 67 % Lymphocytes % 25 % Monocytes % 6 % Eosinophils % 1 % Basophils % 1 % Neutrophils # 8.7 H (1.3-7.7) k/uL Lymphocytes # 3.2 (1.0-4.8) k/uL Monocytes # 0.8 (0-1.0) k/uL Eosinophils # 0.1 (0-0.7) k/uL Basophils # 0.1 (0-0.2) k/uL PT 10.6 (9.0-12.0) sec INR 1.0 (<1.2) APTT 26.0 (22.0-30.0) sec Sodium (137-145) mmol/L Potassium (3.5-5.1) mmol/L Chloride (98-107) mmol/L Carbon Dioxide (22-30) mmol/L Anion Gap mmol/L BUN (7-17) mg/dL Creatinine (0.52-1.04) mg/dL Est GFR (CKD-EPI)AfAm (>60 ml/min/1.73 sqM) Est GFR (CKD-EPI)NonAf (>60 ml/min/1.73 sqM) Glucose (74-99) mg/dL Calcium (8.4-10.2) mg/dL Total Bilirubin (0.2-1.3) mg/dL AST (14-36) U/L ALT (4-34) U/L Alkaline Phosphatase (38-126) U/L Total Protein (6.3-8.2) g/dL Albumin (3.5-5.0) g/dL Urine Color Yellow Urine Appearance Clear (Clear) Urine pH 7.0 (5.0-8.0) Ur Specific [place] 1.018 (1.001-1.035) Urine Protein Trace H (Negative) Urine Glucose (UA) Negative (Negative) Urine Ketones Negative (Negative) Urine Blood Negative (Negative) Urine Nitrite Negative (Negative) Urine Bilirubin Negative (Negative) Urine Urobilinogen <2.0 (<2.0) mg/dL Ur Leukocyte Esterase Negative (Negative) 03/14/22 Range/Units 13:01 WBC (3.8-10.6) k/uL RBC (3.80-5.40) m/uL Hgb (11.4-16.0) gm/dL Hct (34.0-46.0) % MCV (80.0-100.0) fL MCH (25.0-35.0) pg MCHC (31.0-37.0) g/dL RDW (11.5-15.5) % Plt Count (150-450) k/uL MPV Neutrophils % % Lymphocytes % % Monocytes % % Eosinophils % % Basophils % % Neutrophils # (1.3-7.7) k/uL Lymphocytes # (1.0-4.8) k/uL Monocytes # (0-1.0) k/uL Eosinophils # (0-0.7) k/uL Basophils # (0-0.2) k/uL PT (9.0-12.0) sec INR (<1.2) APTT (22.0-30.0) sec Sodium 131 L (137-145) mmol/L Potassium 4.5 (3.5-5.1) mmol/L Chloride 101 (98-107) mmol/L Carbon Dioxide 24 (22-30) mmol/L Anion Gap 6 mmol/L BUN 23 H (7-17) mg/dL Creatinine 1.04 (0.52-1.04) mg/dL Est GFR (CKD-EPI)AfAm 59 (>60 ml/min/1.73 sqM) Est GFR (CKD-EPI)NonAf 51 (>60 ml/min/1.73 sqM) Glucose 117 H (74-99) mg/dL Calcium 8.9 (8.4-10.2) mg/dL Total Bilirubin 0.4 (0.2-1.3) mg/dL AST 36 (14-36) U/L ALT 18 (4-34) U/L Alkaline Phosphatase 148 H (38-126) U/L Total Protein 6.8 (6.3-8.2) g/dL Albumin 3.7 (3.5-5.0) g/dL Urine Color Urine Appearance (Clear) Urine pH (5.0-8.0) Ur Specific [place] (1.001-1.035) Urine Protein (Negative) Urine Glucose (UA) (Negative) Urine Ketones (Negative) Urine Blood (Negative) Urine Nitrite (Negative) Urine Bilirubin (Negative) Urine Urobilinogen (<2.0) mg/dL Ur Leukocyte Esterase (Negative) Disposition Clinical Impression: Leukocytosis, HTN (hypertension), Altered mental status Disposition: ADMITTED IP TO THIS [facility] Condition: Stable Is patient prescribed a controlled substance at d/c from ED?: No Referrals: Derik Hawley MD [Primary Care Provider] - 1-2 days Time of Disposition: 14:58
--- NOTE | 2022-03-14 13:41 | XR ---
EXAMINATION TYPE: XR chest 2V DATE OF EXAM: 03/14/2022 1:20 PM COMPARISON: Chest radiographs from 06/11/2019 TECHNIQUE: XR chest 2V Portable AP radiograph of the chest.. CLINICAL INDICATION:Female, 81 years old with history of altered mental status; FINDINGS: Lungs/Pleura: There is no evidence of pleural effusion, focal consolidation, or pneumothorax. Pulmonary vascularity: Pulmonary vascular congestion. Heart/mediastinum: Cardiomediastinal silhouette is enlarged and stable. Musculoskeletal: No acute osseous pathology. IMPRESSION: Cardiomegaly and mild pulmonary vascular congestion. Correlate with BNP for congestive heart failure.
--- NOTE | 2022-03-14 13:43 | CT ---
EXAMINATION TYPE: CT brain wo con CT DLP: 1261.4 mGycm, Automated exposure control for dose reduction was used. DATE OF EXAM: 03/14/2022 1:22 PM COMPARISON: 06/11/2019. CLINICAL INDICATION:Female, 81 years old with history of Altered mental status, TECHNIQUE: Brain: Multiple axial CT images of the brain were obtained without IV contrast. FINDINGS: Brain: Extra-axial spaces: No abnormal extra-axial fluid collections. Ventricular system: Dilatation in proportion to cerebral atrophy. Cerebral parenchyma: Cerebral atrophy. No acute intraparenchymal hemorrhage or mass effect. The soto -white junction is well differentiated. Confluent hypoattenuating areas are seen within the white mat ter. Cerebellum: Unremarkable. Mass effect: No evidence of midline shift. Intracranial vasculature: Atherosclerotic calcifications of the intracranial vessels. Soft tissues: Normal. Calvarium/osseous structures: No depressed skull fracture. Paranasal sinuses and mastoid air cells: Clear Visualized orbits: Bilateral aphakia IMPRESSION: 1. No acute intracranial process. 2. Nonspecific white matter changes, likely secondary to chronic small vessel ischemic disease.
[2022-03-14 13:56] LABS: Appearance,Urine Clear (Clear); Bilirubin,Urine Negative (Negative); Blood,Urine Negative (Negative); Color,Urine Yellow; Glucose,Urine (UA) Negative (Negative); Ketones,Urine Negative (Negative); Leukocyte Esterase,Urine Negative (Negative); Nitrite,Urine Negative (Negative); Protein,Urine Trace (Negative); Specific Gravity,Urine 1.018 (1.001-1.035); Urobilinogen,Urine <2.0 mg/dL (<2.0)
[2022-03-14 14:09] LABS: Basophils # (A) 0.1 k/uL (0-0.2); Basophils % (A) 1 %; Eosinophils # (A) 0.1 k/uL (0-0.7); Eosinophils % (A) 1 %; HCT 38.3 % (34.0-46.0); HGB 12.6 gm/dL (11.4-16.0); Lymphocytes # (A) 3.2 k/uL (1.0-4.8); Lymphocytes % (A) 25 %; MCH 32.2 pg (25.0-35.0); MCHC 32.9 g/dL (31.0-37.0); MCV 97.8 fL (80.0-100.0); Mean Platelet Volume 7.3; Monocytes # (A) 0.8 k/uL (0-1.0); Monocytes % (A) 6 %; Neutrophils # (A) 8.7 k/uL (1.3-7.7); Neutrophils % (A) 67 %; Platelet Count 267 k/uL (150-450); RBC 3.91 m/uL (3.80-5.40); RDW 15.4 % (11.5-15.5); WBC 12.9 k/uL (3.8-10.6)
[2022-03-14 14:17] LABS: Prothrombin Time 10.6 sec (9.0-12.0)
[2022-03-14 14:18] LABS: Albumin 3.7 g/dL (3.5-5.0); Calcium 8.9 mg/dL (8.4-10.2); Potassium 4.5 mmol/L (3.5-5.1); Total Bilirubin 0.4 mg/dL (0.2-1.3); Total Protein 6.8 g/dL (6.3-8.2)
[2022-03-14] MEDS ORDERED: ACETAMINOPHEN TAB 325 MG TAB PO PRN (14:55)
[2022-03-14] MEDS ORDERED: NALOXONE 0.4 MG/ML 1 ML VIAL IV PRN (14:55)
[2022-03-14 15:42] LABS: VBG PH 7.47 (7.31-7.41)
[2022-03-14] MEDS ORDERED: ALBUTEROL NEBULIZED 2.5 MG/3 ML INHALATION PRN (16:40)
[2022-03-14 16:45] LABS: Amphetamine Screen,Urine Not Detected (NotDetected); Barbiturate Screen,Urine Not Detected (NotDetected); Benzodiazepines Screen,Urine Not Detected (NotDetected); Cocaine Screen,Urine Not Detected (NotDetected); Methadone Screen, Urine Not Detected (NotDetected); Opiate Screen,Urine Not Detected (NotDetected); Oxycodone Screen, Urine Not Detected (NotDetected); Phencyclidine Screen,Urine Not Detected (NotDetected); Tricyclic Antidepressant,Urine Not Detected (NotDetected); Urn Cannabinoid Scrn Not Detected (NotDetected)
[2022-03-14] MEDS ORDERED: FREMANEZUMAB VFRM 225 MG/1.5 ML SQ SCH (16:45)
--- NOTE | 2022-03-14 16:59 | HP ---
HISTORY AND PHYSICAL CHIEF COMPLAINT: Change in mental status. HISTORY OF PRESENT ILLNESS: This 81-year-old woman with a past medical history of multiple medical problems, including atrial fibrillation, asthma and COPD, was complaining of increased confusion for the last 2 to 3 days, and there were concerns about UTI. The patient was taken to [facility] and admitted for further evaluation and treatment. There is no history of any fever, rigors or chills. No history of headache, loss of consciousness, seizures. PAST MEDICAL HISTORY: Reviewed. It includes atrial ablation and asthma. HOME MEDICATIONS: Reviewed. They include Synthroid. Doses and the rest of the medications are reviewed. ALLERGIES: Reviewed. THEY INCLUDE TAPE. FAMILY HISTORY: History of myocardial infarction. SOCIAL HISTORY: Previous history of smoking. REVIEW OF SYSTEMS: Fourteen-point review of systems negative except as mentioned earlier. PHYSICAL EXAMINATION: Pulse is 89, blood pressure 140/72, respiration 20. HEENT: Conjunctivae normal. NECK: No jugular venous distention. CARDIOVASCULAR: S1, S2 muffled. RESPIRATION: Breath sounds diminished at the bases. A few scattered rhonchi. No crackles. ABDOMEN: Soft, nontender. No mass palpable. LEGS: No edema. No swelling. NERVOUS SYSTEM: Higher functions as mentioned earlier. Moves all 4 limbs. Mild diffuse weakness. LYMPHATICS: No lymph node palpable in neck, axillae or groin. SKIN: No ulcer, rash, bleeding. JOINTS: No active deforming arthropathy. LABS: WBC 12.9. Other labs are noted. ASSESSMENT: 1. Change in mental status and weakness. Rule out acute stroke. 2. Possible dementia versus hydrocephalus. 3. Increased white count. 4. Rule out urinary tract infection. 5. Atrial fibrillation. 6. Multiple medical issues. RECOMMENDATIONS AND DISCUSSION: In this 81-year-old woman who presented with multiple complex medical issues, we will monitor the patient closely, continue the current medications, continue symptomatic treatment. Will initiate empiric antibiotic treatment. Will obtain the cultures. Neurology consultation. Neuro checks. Resume the home medications. Prognosis is guarded because of multiple complex medical issues. Further recommendations to follow. See orders for further details. MMODL / IJN: [id number] /
--- NOTE | 2022-03-14 18:41 | US ---
EXAMINATION TYPE: US carotid duplex BILAT DATE OF EXAM: 03/14/2022 COMPARISON: NONE CLINICAL HISTORY: stroke. EXAM MEASUREMENTS: RIGHT: Peak Systolic Velocity (PSV) cm/sec ----- Right CCA: 63.1 ----- Right ICA: 83.8 ----- Right ECA: 71.7 ICA/CCA ratio: 1.3 RIGHT: End Diastole cm/sec ----- Right CCA: 5.7 ----- Right ICA: 30.0 ----- Right ECA: 0.0 LEFT: Peak Systolic Velocity (PSV) cm/sec ----- Left CCA: 93.5 ----- Left ICA: 104 ----- Left ECA: 110 ICA/CCA ratio: 1.1 LEFT: End Diastole cm/sec ----- Left CCA: 11.5 ----- Left ICA: 17.8 ----- Left ECA: 12.1 VERTEBRALS (direction of flow): Right Vertebral: unable to visualize Left Vertebral: unable to visualize extreme technical limitations, limited examination. patient uncooperative, unable to hold still, co nstantly moving head back and fourth, tensing. mild to moderate plaque bilateral bifurcations. unable to visualize distal ICA's bilaterally or vertebral arteries. Proximal internal carotid arteries have less than 50% stenosis. IMPRESSION: Limited evaluation as above does not show evidence of hemodynamic arterial stenosis in the carotid ar teries. Vertebral arteries not seen. Criteria for Assigning % of Stenosis / Diameter reduction (Estimation based on the indirect measurements of the internal carotid artery velocities (ICA PSV). 1. Normal (no stenosis)=ICA PSV < 125 cm/s: ratio < 2.0: ICA EDV<40 cm/s. 2. Less than 50% stenosis=ICA PSV < 125 cm/s: ratio < 2.0: ICA EDV<40 cm/s. 3. 50 to 69% stenosis=ICA PSV of 125 to 230 cm/s: ration 2.0 ? 4.0: ICA EDV 40-100 cm/s. 4. Greater than 70% stenosis to near occlusion= ICA PSV > 230 cm/s: ratio > 4.0: ICA EDV > 100 cm/s. 5. Near occlusion= ICA PSV velocities may be low or undetectable: variable ratio and ICA EDV. 6. Total occlusion=unable to detect flow.
[2022-03-14] MEDS: APIXABAN 5 MG TAB PO SCH (20:36)
[2022-03-14] MEDS: MONTELUKAST 10 MG TAB PO SCH (20:36)
[2022-03-15] MEDS: LEVOTHYROXINE 25 MCG TAB PO SCH (05:07)
[2022-03-15] MEDS: APIXABAN 5 MG TAB PO SCH ×2 (08:08→20:22)
[2022-03-15] MEDS: FOLIC ACID 1 MG TAB PO SCH (08:08)
[2022-03-15] MEDS: allopurinoL 300 MG TAB PO SCH (08:08)
[2022-03-15] MEDS: CHOLECALCIFEROL 25 MCG (1000 IU) TABLET PO SCH (08:08)
[2022-03-15] MEDS: FERROUS SULFATE 325 MG TAB PO SCH (08:08)
[2022-03-15] MEDS: lisinopriL 20 MG TAB PO SCH (08:08)
[2022-03-15 11:02] LABS: Basophils # (A) 0.03 X 10*3/uL (0.00-0.10); Basophils % (A) 0.3 %; Eosinophils # (A) 0.08 X 10*3/uL (0.04-0.35); Eosinophils % (A) 0.9 %; HCT 39.4 % (37.2-46.3); HGB 12.9 g/dL (12.0-15.0); Immature Grans, Automated 0.2 %; Lymphocytes # (A) 2.75 X 10*3/uL (0.90-5.00); Lymphocytes % (A) 29.8 %; MCH 31.2 pg (27.0-32.0); MCHC 32.7 g/dL (32.0-37.0); MCV 95.4 fL (80.0-97.0); Mean Platelet Volume 10.8 fL (9.5-12.2); Monocytes % (A) 11.9 %; NRBC Per 100 WBC 0 /100 WBCS (0.0-0.0); Neutrophils # (A) 5.25 X 10*3/uL (1.80-7.70); Neutrophils % (A) 56.9 %; Platelet Count 275 X 10*3/uL (140-440); RBC 4.13 X 10*6/uL (4.10-5.20); WBC 9.23 X 10*3/uL (4.50-10.00)
[2022-03-15 11:15] LABS: African American GFR (CKD) 51.9 (60.0-200.0); Albumin 3.5 g/dL (3.8-4.9); Albumin/Globulin Ratio 1.37 (1.60-3.17); BUN/Creat Ratio 15.78 Ratio (12.00-20.00); Blood Urea Nitrogen 18.3 mg/dL (9.0-27.0); Calcium 8.8 mg/dL (8.7-10.3); Globulin 2.6 g/dL (1.6-3.3); Non-African American GFR(CKD) 44.8 (60.0-200.0); Potassium 4.4 mmol/L (3.5-5.5); Total Bilirubin 0.3 mg/dL (0.30-1.20); Total Protein 6.1 g/dL (6.2-8.2)
--- NOTE | 2022-03-15 11:46 | P.CNNES ---
History of Present Illness Consult date: 03/15/22 Requesting physician: Fernie Wadsworth Reason for Consult: Stroke? History of Present Illness: This is a 81-year-old woman with history of atrial fibrillation on eliquis, hypertension, hypothyroidism, macular degeneration of bilateral eyes leading to significant visual disturbance who presented to the emergency department because of confusion. Some of the history is obtained from medical record and patient's nurse. Per the ED note it seems that the family notified the contact center specialist the patient has been having increased confusion over the past 2 days and there are concerns for urinary tract infection. Neurology was consulted to rule out acute stroke. Per but per the patient she resides alone and has help from neighbor. Per nurse it seems patient was found confused. Patient denies any headaches, any focal weakness or any issues currently or that presented to our facility. She wants to go home and does not know why she is here. Some other workup in our facility during this hospitalization consisted of: She has been afebrile during this hospital visit. Initial white blood cells 12.9 thousand slightly neutrophilic in the repeated is normalized. Sodium is 131, creatinine is 1.04, Taveras 8.9 AST of 36 ALT of 18. Urinalysis is negative for urinary tract infection Urine drug screen is not detected that. CT of the head is reported as no acute intracranial processes. Nonspecific white matter changes, likely secondary due to chronic small vessel ischemic disease. I personally reviewed the CT of the head and I agree there is no acute subacute ischemic stroke. There is no intraparenchymal hemorrhage. Carotid duplex is reported as limited evaluation at but does not show any evidence of hemodynamic arterial stenosis in the carotid. Vertebral arteries are not seen Review of Systems Review of system: The 12 point system was reviewed and apparent positive and negative per HPI. Past Medical History Past Medical History: Atrial Fibrillation, Asthma, COPD, Eye Disorder, GERD/Reflux, Hypertension, Rheumatoid Arthritis (RA), Thyroid Disorder Additional Past Medical History / Comment(s): Pt recently admitted to [facility] on 06/04/19 with UTI/R side pneumonia with sepsis, mita r groin. Other hx: Macular degeneration bilaterally-legally blind, rheumatoid arthritis in multple joints, osteoporosis, migraines, hypothyroid, urinary incontinence at times. History of Any Multi-Drug Resistant Organisms: ESBL Date of last positivie culture/infection: 06/05/18 MDRO Source:: esbl urine Past Surgical History: Appendectomy, Cholecystectomy, Hysterectomy, Orthopedic Surgery, Tonsillectomy Additional Past Surgical History / Comment(s): D&C, colonoscopy, left knee scope, right arm ORIF. Past Anesthesia/Blood Transfusion Reactions: Motion Sickness Additional Past Anesthesia/Blood Transfusion Reaction / Comment(s): severe motion sickness Past Psychological History: No Psychological Hx Reported Additional Psychological History / Comment(s): Pt resides with her spouse of 48yrs. She just got a walker. She is legally blind, no longer drives, her spouse drives and manages her medications. She has contact with a great manuelito that lives next door. She is retired, worked most recently at [employer]. She has oxygen that she wears prn at 2L/NC. No recent travel. No experience. Smoking Status: Former smoker Past Alcohol Use History: None Reported Additional Past Alcohol Use History / Comment(s): patient was a smoker of a half a pack per day for 40 years and quit when she was 60 years of age. No alcohol use. Past Drug Use History: None Reported - Past Family History Mother Additional Family Medical History / Comment(s): Pt states mother had severe migraines and at the age of 43yrs while hospitalized with severe migraine but does not know cause of . Father Family Medical History: Myocardial Infarction (MS) Additional Family Medical History / Comment(s): Father of a MS at the age of 54yrs. Family Additional Family Medical History / Comment(s): Patient denies any history of coronary artery disease Medications and Allergies Home Medications Medication Instructions Recorded Confirmed Type Folic Acid 1 mg PO DAILY 06/05/18 03/14/22 History Montelukast [Singulair] 10 mg PO HS 06/05/18 03/14/22 History Apixaban [Eliquis] 5 mg PO BID tab 06/10/18 03/14/22 Rx Fremanezumab-Vfrm [Ajovy Syringe] 225 mg SQ Q30D 06/03/19 03/14/22 History Albuterol Inhaler [Ventolin Hfa 2 puff INHALATION RT-QID PRN 03/14/22 03/14/22 History Inhaler] Cholecalciferol [Vitamin D3 (25 50 mcg PO DAILY 03/14/22 03/14/22 History Mcg = 1000 Iu)] Doxycycline Hyclate 100 mg PO BID 03/14/22 03/14/22 History Ferrous Sulfate [Feosol] 325 mg PO DAILY 03/14/22 03/14/22 History Levothyroxine Sodium [Synthroid] 25 mcg PO DAILY 03/14/22 03/14/22 History allopurinoL 300 mg PO Q48H 03/14/22 03/14/22 History lisinopriL [Zestril] 20 mg PO DAILY 03/14/22 03/14/22 History Allergies Allergy/AdvReac Type Severity Reaction Status Date / Time adhesive tape Allergy Unknown Verified 03/14/22 15:33 ciprofloxacin [From Cipro] Allergy Unknown Verified 03/14/22 15:33 epinephrine Allergy Unknown Verified 03/14/22 15:33 latex Allergy Rash/Hives Verified 03/14/22 15:33 Penicillins Allergy Unknown Verified 03/14/22 15:33 povidone-iodine Allergy Unknown Verified 03/14/22 15:33 [From Betadine] soap [From Betadine] Allergy Unknown Verified 03/14/22 15:33 Sulfa (Sulfonamide Allergy Unknown Verified 03/14/22 15:33 Antibiotics) Tetanus Vaccines and Toxoid Allergy Unknown Verified 03/14/22 15:33 amitriptyline [From Elavil] AdvReac Confusion Verified 03/14/22 15:33 Physical Examination - Vital Signs Vital Signs: Vital Signs Temp Pulse Pulse Resp BP BP Pulse Ox 03/15/22 04:08 98.4 F 92 15 141/86 96 03/14/22 18:51 98.8 F 91 16 183/84 97 03/14/22 17:30 98.6 F 90 178/76 97 03/14/22 15:43 98.6 F 89 20 114/78 98 03/14/22 12:40 99.5 F 92 18 189/86 95 Intake and Output 03/14/22 03/15/22 03/15/22 22:59 06:59 14:59 Intake Total 50 Balance 50 Intake: Intake, IV Titration 50 Amount cefTRIAXone 1 gm In 50 Sodium Chloride 0.9% 50 ml @ 100 mls/hr IVPB Q24H [facility] Rx#:[id number] Other: # Voids 1 1 Weight 68.039 kg GENERAL: The patient is lying in bed and is not in acute distress. CHEST: The heart rate is regular rate rhythm. No murmurs to auscultation. LUNG: Clear to auscultation bilaterally no wheezing noted throughout. Not labored breathing. ABDOMEN/GI: Bowel sounds present in all 4 quadrants. No tenderness to palpation throughout. NEUROLOGICAL: Limited because of cooperation. Higher mental function: The patient is awake, alert, oriented to self. She stated she was in the hospital but name is Romel Montague. She stated the year is 1921 and could not tell me month. She is slowly responding to questions. She is following simple commands. She was able to name phone and gloves. Does not appear to have aphasia or neglect. Cranial nerves: The pupils are round, equal and reactive to light. Visual paez is hard to assess because of cooperation and has poor vision from macular degeneration. No facial weakness. No dysarthria. a Motor: The strength is right ring finger extension is weak but otherwise moving all extremities above gravity. Normal tone and bulk. Cerebellum: Unable to assess because of cooperation. Sensation: Unable to assess because of cooperation. Reflexes (right/left): Unable to assess because of cooperation. Plantars Unable to assess because of cooperation. Results - Laboratory Findings CBC and BMP: 03/15/22 06:38 03/15/22 06:38 Abnormal Lab Findings: Abnormal Labs 03/14/22 03/14/22 03/14/22 13:01 13:01 13:01 WBC 12.9 H RDW Neutrophils # 8.7 H Monocytes # VBG pH VBG pCO2 VBG HCO3 Sodium 131 L BUN 23 H Glucose 117 H Alkaline Phosphatase 148 H Urine Protein Trace H 03/14/22 03/15/22 15:30 06:38 WBC RDW 15.0 H Neutrophils # Monocytes # 1.10 H VBG pH 7.47 H VBG pCO2 31 L VBG HCO3 22 L Sodium BUN Glucose Alkaline Phosphatase Urine Protein Assessment and Plan Assessment: Altered mental status encephalopathy of unknown etiology. Currently is awake, oriented to self and knew she was in hospital. She is following simple commands (unknown baseline). atrial fibrillation on eliquis hypertension hypothyroidism Macular degeneration of bilateral eyes leading to significant visual disturbance Plan: I ordered a routine EEG. It will be completed tomorrow because there is no EEG techs on staff this weekend. Ordered MRI of the brain to rule out stroke. Ordered TSH, vitamin B12, ammonia level, folate Every 4 hours neuro checks We'll defer the rest of medical management to the primary team The plan is discussed with her nurse. Thank you for the consultation. Tod Esqueda M.D. Neuro-hospitalist Time with Patient: Greater than 30
[2022-03-15 13:55] LABS: T4, Free (Free Thyroxine) 0.89 ng/dL (0.78-2.19)
--- NOTE | 2022-03-15 13:56 | P.PN ---
Subjective Progress Note Date: 03/15/22 This is a 81 year old female who was recently admitted with increased confusion over the last few days and is being closely monitored. Concern for possible urinary tract infection, present on admission and was started on IV ceftriaxone. Neurology is consulted and undergoin neurological work up. MRI of the brain is ordered. @d echo as well. Patient is afebrile and no reports of chest pain or shortness of breath noted. Review of systems: Constitutional: No reports of fatigue, fever, or chills Cardiovascular: No reports of chest pain or palpitations Respiratory: No reports of shortness of breath or cough GI: No reports of nausea, no reports of of vomiting, no reports of diarrhea : No reports of dysuria or retention Neurovascular: reports of generalized weakness All medications have been reviewed Active Medications Acetaminophen (Acetaminophen Tab 325 Mg Tab) 650 mg PO Q6HR PRN PRN Reason: Mild Pain or Fever > 100.5 Albuterol Sulfate (Albuterol Nebulized 2.5 Mg/3 Ml) 2.5 mg INHALATION RT-QID PRN PRN Reason: Shortness Of Breath Allopurinol (Allopurinol 300 Mg Tab) 300 mg PO Q48H [facility] Last Admin: 03/15/22 08:08 Dose: 300 mg Apixaban (Apixaban 5 Mg Tab) 5 mg PO BID [facility]; Protocol Last Admin: 03/15/22 08:08 Dose: 5 mg Cholecalciferol (Cholecalciferol 25 Mcg (1000 Iu) Tablet) 50 mcg PO DAILY [facility] Last Admin: 03/15/22 08:08 Dose: 50 mcg Ferrous Sulfate (Ferrous Sulfate 325 Mg Tab) 325 mg PO DAILY [facility] Last Admin: 03/15/22 08:08 Dose: 325 mg Folic Acid (Folic Acid 1 Mg Tab) 1 mg PO DAILY [facility] Last Admin: 03/15/22 08:08 Dose: 1 mg Ceftriaxone Sodium 1 gm/ (Sodium Chloride) 50 mls @ 100 mls/hr IVPB Q24H [facility]; Protocol Last Admin: 03/14/22 17:30 Dose: 100 mls/hr Levothyroxine Sodium (Levothyroxine 25 Mcg Tab) 25 mcg PO DAILY@0630 [facility] Last Admin: 03/15/22 05:07 Dose: 25 mcg Lisinopril (Lisinopril 20 Mg Tab) 20 mg PO DAILY [facility] Last Admin: 03/15/22 08:08 Dose: 20 mg Montelukast Sodium (Montelukast 10 Mg Tab) 10 mg PO HS [facility] Last Admin: 03/14/22 20:36 Dose: 10 mg Naloxone HCl (Naloxone 0.4 Mg/Ml 1 Ml Vial) 0.2 mg IV Q2M PRN PRN Reason: Opioid Reversal PHYSICAL EXAMINATION: GENERAL: The patient is alert , confused, Well developed, well nourished. elderly, obese HEENT: Pupils are round and equally reacting to light. EOMI. no scleral icterus. No conjunctival pallor. Normocephalic, atraumatic. No pharyngeal erythema. No thyromegaly. CARDIOVASCULAR: S1 and S2 muffled PULMONARY: diminished breath sounds bilaterally with no wheezing or rhonchi noted. ABDOMEN: soft. non tender on exam. Obese. non-distended, normal bowel sounds. No palpable organomegaly. MUSCULOSKELETAL: No joint swelling or deformity. EXTREMITIES: No cyanosis, clubbing, or pedal edema. NEUROLOGICAL: Gross neurological examination did not reveal any focal deficits. diffuse weakness SKIN: No rashes. Assessment: Change in mental status and weakness, rule out acute stroke Possible dementia versus hydrocephalus Increased white blood count Rule out urinary tract infection Atrial fibrillation history multiple complex medical issues GI prophylaxis DVT prophylaxis Full code Plan: Recommend to continue with current medications and management . Neurology consulted and undergoing neurological work up including MRI of the brain which is ordered and pending. Patient is continued on IV ceftriaxone and will continu e. PT/OT to evaluate as well. Ammonia is <9. WBC normalized. Recommend repeat labs and appreciate input and recommendations from neurology. Due to multiple complex medical issues, prognosis is guarded. The impression and plan of care has been dictated as a scribe by Nanette Leung, nurse practitioner as directed. MD Mackenzie I have performed a history and examination and MDM of this patient, discussed the same with the dictator, and has been documented as a scribe. Based on total visit time, I have performed more than 50% of the visit. Any additional findings or plans will be noted. Objective - Vital Signs Vital signs: Vital Signs Temp 98.4 F 03/15/22 04:08 Pulse 92 03/15/22 04:08 Resp 15 03/15/22 04:08 BP 141/86 03/15/22 04:08 Pulse Ox 96 03/15/22 04:08 FiO2 Intake & Output 03/14/22 03/15/22 03/15/22 18:59 06:59 18:59 Intake Total 50 Balance 50 Weight 68.039 kg Intake: Intake, IV Titration 50 Amount cefTRIAXone 1 gm In 50 Sodium Chloride 0.9% 50 ml @ 100 mls/hr IVPB Q24H [facility] Rx#:[id number] Other: # Voids 1 - Labs CBC & Chem 7: 03/15/22 06:38 03/15/22 06:38 Labs: Abnormal Lab Results - Last 24 Hours (Table) 03/14/22 03/14/22 03/14/22 Range/Units 13:01 13:01 13:01 WBC 12.9 H (3.8-10.6) k/uL RDW (11.5-14.5) % Neutrophils # 8.7 H (1.3-7.7) k/uL Monocytes # (0.20-1.00) X 10*3/uL VBG pH (7.31-7.41) VBG pCO2 (37-51) mmHg VBG HCO3 (24-28) mmol/L Sodium 131 L (137-145) mmol/L BUN 23 H (7-17) mg/dL Glucose 117 H (74-99) mg/dL Alkaline Phosphatase 148 H (38-126) U/L Urine Protein Trace H (Negative) 03/14/22 03/15/22 Range/Units 15:30 06:38 WBC (3.8-10.6) k/uL RDW 15.0 H (11.5-14.5) % Neutrophils # (1.3-7.7) k/uL Monocytes # 1.10 H (0.20-1.00) X 10*3/uL VBG pH 7.47 H (7.31-7.41) VBG pCO2 31 L (37-51) mmHg VBG HCO3 22 L (24-28) mmol/L Sodium (137-145) mmol/L BUN (7-17) mg/dL Glucose (74-99) mg/dL Alkaline Phosphatase (38-126) U/L Urine Protein (Negative)
[2022-03-15] MEDS: MONTELUKAST 10 MG TAB PO SCH (20:22)
[2022-03-16] MEDS: LEVOTHYROXINE 25 MCG TAB PO SCH (05:28)
[2022-03-16] MEDS: CHOLECALCIFEROL 25 MCG (1000 IU) TABLET PO SCH (07:50)
[2022-03-16] MEDS: lisinopriL 20 MG TAB PO SCH (07:50)
[2022-03-16] MEDS: FERROUS SULFATE 325 MG TAB PO SCH (07:50)
[2022-03-16] MEDS: APIXABAN 5 MG TAB PO SCH (07:50)
[2022-03-16] MEDS: FOLIC ACID 1 MG TAB PO SCH (07:50)
[2022-03-16] MEDS: TAMSULOSIN 0.4 MG CAP.ER.24H PO SCH (09:46)
--- NOTE | 2022-03-16 10:00 | P.PN ---
Subjective Progress Note Date: 03/16/22 The patient is seen at bedside and feels she is doing well. Denies of any new symptoms. She denies of any headache, focal weakness. Objective - Vital Signs Vital signs: Vital Signs Temp 98.1 F 03/16/22 05:00 Pulse 65 03/16/22 05:00 Resp 18 03/16/22 05:00 BP 107/59 03/16/22 05:00 Pulse Ox 93 L 03/16/22 05:00 FiO2 Intake & Output 03/15/22 03/16/22 03/16/22 18:59 06:59 18:59 Intake Total 500 360 Output Total 381 Balance 500 360 -381 Intake: Oral 500 360 Output: Post Void Residual 381 Other: Voiding Method Bedside Commode Diaper # Voids 2 2 - Exam GENERAL: The patient is lying in bed and is not in acute distress. NEUROLOGICAL: Limited because of cooperation. Higher mental function: The patient is awake, alert, oriented to self. She stated she was in the hospital. She continued to state year is 1921 but correctly stated the month. She is more awake and responsive today She is following simple commands. She was able to name phone and gloves. Does not appear to have aphasia or neglect. Cranial nerves: The pupils are round, equal and reactive to light. Visual paez is hard to assess because of cooperation and has poor vision from macular degeneration. No facial weakness. No dysarthria. a Motor: The strength is right ring finger extension is weak but otherwise moving all extremities above gravity. Normal tone and bulk. Cerebellum: Unable to assess because of cooperation. Sensation: Unable to assess because of cooperation. Reflexes (right/left): Unable to assess because of cooperation. Plantars Unable to assess because of cooperation. Some other workup in our facility during this hospitalization consisted of: Vitamin B12 is 376 Folate levels more than 20 TSH is 4.890 and a free T4 is 0.89. Ammonia level is less than 9 Sodium is 131, creatinine is 1.04, Taveras 8.9 AST of 36 ALT of 18. Urinalysis is negative for urinary tract infection Urine drug screen is not detected. CT of the head is reported as no acute intracranial processes. Nonspecific white matter changes, likely secondary due to chronic small vessel ischemic disease. I personally reviewed the CT of the head and I agree there is no acute subacute ischemic stroke. There is no intraparenchymal hemorrhage. Carotid duplex is reported as limited evaluation at but does not show any evidence of hemodynamic arterial stenosis in the carotid. Vertebral arteries are not seen - Labs CBC & Chem 7: 03/15/22 06:38 03/15/22 06:38 Labs: Abnormal Lab Results - Last 24 Hours (Table) 03/15/22 03/15/22 03/15/22 Range/Units 06:38 06:38 12:26 RDW 15.0 H (11.5-14.5) % Monocytes # 1.10 H (0.20-1.00) X 10*3/uL Sodium 133 L (135-145) mmol/L Carbon Dioxide 19.0 L (20.0-27.5) mmol/L Est GFR (CKD-EPI)AfAm 51.9 L (60.0-200.0) Est GFR (CKD-EPI)NonAf 44.8 L (60.0-200.0) AST 39 H (13-35) U/L Total Protein 6.1 L (6.2-8.2) g/dL Albumin 3.5 L (3.8-4.9) g/dL Albumin/Globulin Ratio 1.37 L (1.60-3.17) g/dL TSH 4.890 H (0.465-4.680) mIU/L Microbiology - Last 24 Hours (Table) 03/15/22 11:55 Urine Culture - Preliminary Urine,Voided 03/14/22 17:33 Blood Culture - Preliminary Blood No Growth after 24 hours Assessment and Plan Assessment: Altered mental status encephalopathy of unknown etiology. Currently is awake, oriented to self and knew she was in hospital and month. She is following simple commands (unknown baseline). Atrial fibrillation on eliquis hypertension hypothyroidism Macular degeneration of bilateral eyes leading to significant visual disturbance Plan: Pending routine EEG. MRI of the brain to rule out stroke is pending. Because of low normal vitamin B12: I started the patient on B12 1000mcg daily. Every 4 hours neuro checks We'll defer the rest of medical management to the primary team The plan is discussed with her primary team. Tod Esqueda M.D. Neuro-hospitalist Time with Patient: Less than 30
--- NOTE | 2022-03-16 10:29 | US ---
EXAMINATION TYPE: US kidneys/renal and bladder DATE OF EXAM: 03/16/2022 COMPARISON: NONE CLINICAL HISTORY: retention. urinary retention EXAM MEASUREMENTS: Right Kidney: 10.1 x 4.0 x 3.6 cm Left Kidney: 9.3 x 3.8 x 4.0 cm Right Kidney: No hydronephrosis or masses seen Left Kidney: No hydronephrosis or masses seen Bladder: wnl Bilateral Jets seen: Yes There is no evidence for hydronephrosis at this point in time. No nephrolithiasis is seen. No mickie s are identified. The urinary bladder is anechoic. Bilateral ureteral jets are seen. IMPRESSION: No significant abnormality evident
--- NOTE | 2022-03-16 11:22 | MR ---
Brain MRI without contrast HISTORY: Altered mental status Multiplanar multisequence imaging through the brain Correlation CT brain 03/14/2022 There are scattered hyperintensities involving the subcortical and periventricular white matter bilat erally, at least 6-7 lesions are present. Confluent periventricular and subcortical hyperintensity is present on inversion recovery T2-weighted sequences. There is motion on the exam. There is no eviden t hemorrhage or hydrocephalus. Cortical atrophy is present. Cerebellopontine angles, corpus callosum, pituitary, cervical medullary junction are within normal limits. Some inflammatory change noted with in the ethmoid air cells. There are expected vascular flow voids. IMPRESSION: Correlate for embolic phenomenon bilaterally, consider contrast-enhanced exam as indicate d.
[2022-03-16] MEDS: CYANOCOBALAMIN 500 MCG TAB PO SCH (11:58)
[2022-03-16 13:39] LABS: Basophils % (A) 0 %; Eosinophils # (A) 0.3 k/uL (0-0.7); Eosinophils % (A) 3 %; HCT 42.1 % (34.0-46.0); Lymphocytes # (A) 2.1 k/uL (1.0-4.8); Lymphocytes % (A) 24 %; MCH 33.7 pg (25.0-35.0); MCHC 33.2 g/dL (31.0-37.0); MCV 101.4 fL (80.0-100.0); Macrocytosis Slight; Mean Platelet Volume 8.3; Monocytes # (A) 0.6 k/uL (0-1.0); Monocytes % (A) 7 %; Neutrophils # (A) 5.7 k/uL (1.3-7.7); Neutrophils % (A) 65 %; Platelet Count 245 k/uL (150-450); RBC 4.15 m/uL (3.80-5.40); RDW 15.4 % (11.5-15.5); WBC 8.8 k/uL (3.8-10.6)
[2022-03-16 13:53] LABS: African American GFR (CKD) 46 (>60 ml/min/1.73 sqM); Anion Gap 11 mmol/L; Blood Urea Nitrogen 32 mg/dL (7-17); Calcium 9.3 mg/dL (8.4-10.2); Carbon Dioxide 20 mmol/L (22-30); Chloride 103 mmol/L (98-107); Glucose 106 mg/dL (74-99); Non-African American GFR(CKD) 40 (>60 ml/min/1.73 sqM); Potassium 4.1 mmol/L (3.5-5.1); Sodium 134 mmol/L (137-145)
--- NOTE | 2022-03-16 14:09 | MR ---
EXAMINATION TYPE: MR brain w con DATE OF EXAM: 03/16/2022 COMPARISON: MR brain without contrast same date HISTORY: Abnormal brain MRI, mental status changes. Confusion. Compare recent MRI TECHNIQUE: Multiplanar, multisequence images of the brain and brainstem is performed with IV contrast, utilizing 7 mL intravenous Gadavist . FINDINGS: No abnormal enhancement to correspond to the areas abnormality seen on prior MRI. Midline structures demonstrate normal morphology. The craniocervical junction appears within normal limits. Post contrast images demonstrate no abnormal enhancement. The dural venous sinuses appear pa tent. IMPRESSION: No abnormal enhancement to suggest metastatic disease, correlate for possible embolic phe nomenon
--- NOTE | 2022-03-16 14:37 | EEG ---
ELECTROENCEPHALOGRAM REPORT DATE OF SERVICE: 03/16/2022 CLINICAL HISTORY: This is a 81-year-old woman with altered mental status. The video EEG is obtained to evaluate for seizure epileptiform activity. RELEVANT MEDICATION: The patient is not on any antiepileptic drugs. EEG TYPE: A routine 21 channel EEG is performed with video using the 10/20 electrode placement system. DESCRIPTION: Wakefulness is only obtained. During awake state, the background consists of low to moderate voltage of 8-8.5 hertz activity. There is no physiological stage 2 sleep architecture seen. There is no focal slowing. Interictal and ictal is none. ACTIVATION PROCEDURE: Photic stimulation and hyperventilation is not performed. CLINICAL INTERPRETATION: This is a normal routine EEG. There is no focal slowing, epileptiform discharge or seizure on the EEG. Clinical correlation is recommended. RIGOBERTO / SHYN: [id number] / MTDD
[2022-03-16] MEDS: MONTELUKAST 10 MG TAB PO SCH (19:49)
--- NOTE | 2022-03-16 19:51 | P.PN ---
Subjective Progress Note Date: 03/16/22 This is a 81 year old female who was recently admitted with increased confusion over the last few days and is being closely monitored. Concern for possible urinary tract infection, present on admission and was started on IV ceftriaxone. Neurology is consulted and undergoing neurological work up. MRI of the brain is ordered. @d echo as well. Patient is afebrile and no reports of chest pain or shortness of breath noted. 03/16/2022 Patient is seen today and appears fatigued. Patient continues on IV ceftriaxone and awaiting urine culture. Patient to have mri of the brain today. Patient with some urinary retention per nursing staff and ordered bladder scan and U/S of the renals and bladder. Patient is afebrile and denies any chest pain or shortness of breath. Patient is weak and will have PT evaluate. Consult to case management made for possible ECF. Review of systems: Constitutional: reports of fatigue, no fever, or chills Cardiovascular: No reports of chest pain or palpitations Respiratory: No reports of shortness of breath or cough GI: No reports of nausea, no reports of of vomiting, no reports of diarrhea : No reports of dysuria, reports urgency to urinate and fullness Neurovascular: reports of generalized weakness All medications have been reviewed Active Medications Acetaminophen (Acetaminophen Tab 325 Mg Tab) 650 mg PO Q6HR PRN PRN Reason: Mild Pain or Fever > 100.5 Albuterol Sulfate (Albuterol Nebulized 2.5 Mg/3 Ml) 2.5 mg INHALATION RT-QID PRN PRN Reason: Shortness Of Breath Allopurinol (Allopurinol 300 Mg Tab) 300 mg PO Q48H [facility] Last Admin: 03/15/22 08:08 Dose: 300 mg Aspirin (Aspirin 325 Mg Tab) 325 mg PO DAILY [facility] Cholecalciferol (Cholecalciferol 25 Mcg (1000 Iu) Tablet) 50 mcg PO DAILY [facility] Last Admin: 03/16/22 07:50 Dose: 50 mcg Cyanocobalamin (Cyanocobalamin 500 Mcg Tab) 1,000 mcg PO DAILY [facility] Last Admin: 03/16/22 11:58 Dose: 1,000 mcg Ferrous Sulfate (Ferrous Sulfate 325 Mg Tab) 325 mg PO DAILY [facility] Last Admin: 03/16/22 07:50 Dose: 325 mg Folic Acid (Folic Acid 1 Mg Tab) 1 mg PO DAILY [facility] Last Admin: 03/16/22 07:50 Dose: 1 mg Ceftriaxone Sodium 1 gm/ (Sodium Chloride) 50 mls @ 100 mls/hr IVPB Q24H [facility]; Protocol Last Admin: 03/16/22 18:29 Dose: 100 mls/hr Levothyroxine Sodium (Levothyroxine 25 Mcg Tab) 25 mcg PO DAILY@0630 [facility] Last Admin: 03/16/22 05:28 Dose: 25 mcg Lisinopril (Lisinopril 20 Mg Tab) 20 mg PO DAILY [facility] Last Admin: 03/16/22 07:50 Dose: 20 mg Montelukast Sodium (Montelukast 10 Mg Tab) 10 mg PO HS [facility] Last Admin: 03/15/22 20:22 Dose: 10 mg Naloxone HCl (Naloxone 0.4 Mg/Ml 1 Ml Vial) 0.2 mg IV Q2M PRN PRN Reason: Opioid Reversal Tamsulosin HCl (Tamsulosin 0.4 Mg Cap.Er.24h) 0.4 mg PO PC-BRKFST [facility] Last Admin: 03/16/22 09:46 Dose: 0.4 mg PHYSICAL EXAMINATION: GENERAL: The patient is alert , lethargic, mildly confused, Well developed, well nourished. elderly, obese HEENT: Pupils are round and equally reacting to light. EOMI. no scleral icterus. No conjunctival pallor. Normocephalic, atraumatic. No pharyngeal erythema. No thyromegaly. CARDIOVASCULAR: S1 and S2 muffled PULMONARY: diminished breath sounds bilaterally with no wheezing or rhonchi noted. ABDOMEN: soft. non tender on exam. Obese. non-distended, normal bowel sounds. No palpable organomegaly. MUSCULOSKELETAL: No joint swelling or deformity. EXTREMITIES: No cyanosis, clubbing, or pedal edema. NEUROLOGICAL: Gross neurological examination did not reveal any focal deficits. diffuse weakness SKIN: No rashes. Assessment: Change in mental status and weakness, possibly secondary to acute stroke as noted on MRI Bilateral lesions of the periventricular and subcortical white matter Possible dementia versus hydrocephalus Increased white blood count Rule out urinary tract infection Urinary retention, possibly secondary to UTI Atrial fibrillation history multiple complex medical issues GI prophylaxis DVT prophylaxis Full code Plan: Recommend to continue with current medications and management . Neurology following and undergoing neurological work up including MRI of the brain which is showing lesions and mri brain with contrast ordered and considering embolic phenomen. Will hold eliquis and start ASA 325 daily and consult cardio for possible TAL. EEG was normal. recommend continued neuro checks. Patient is continued on IV ceftriaxone and will continue. PT/OT to evaluate as well. Recommend repeat labs and close monitoring. Patient with some urinary retention and will straight cath. U/s ordered of the kidneys and pending. Start flomax and continue bladder scans. If continuing to retain may insert correia catheter. Case management consulted for possible ECF. Due to multiple complex medical issues, prognosis is guarded. The impression and plan of care has been dictated by Nanette Leung, nurse practitioner as directed. MD Mackenzie I have performed a history and examination and MDM of this patient, discussed the same with the dictator, and agree with the dictator's assessment and plan as written ,documented as a scribe. Based on total visit time, I have performed more than 50% of the visit. Any additional findings or plans will be noted. Objective - Vital Signs Vital signs: Vital Signs Temp 98.1 F 03/16/22 05:00 Pulse 65 03/16/22 05:00 Resp 18 03/16/22 05:00 BP 107/59 03/16/22 05:00 Pulse Ox 93 L 03/16/22 05:00 FiO2 Intake & Output 03/15/22 03/16/22 03/16/22 18:59 06:59 18:59 Intake Total 500 360 Output Total 381 Balance 500 360 -381 Intake: Oral 500 360 Output: Post Void Residual 381 Other: Voiding Method Bedside Commode Diaper # Voids 2 2 - Labs CBC & Chem 7: 03/16/22 12:53 03/16/22 12:53 Labs: Abnormal Lab Results - Last 24 Hours (Table) 03/15/22 03/15/22 03/15/22 Range/Units 06:38 06:38 12:26 RDW 15.0 H (11.5-14.5) % Monocytes # 1.10 H (0.20-1.00) X 10*3/uL Sodium 133 L (135-145) mmol/L Carbon Dioxide 19.0 L (20.0-27.5) mmol/L Est GFR (CKD-EPI)AfAm 51.9 L (60.0-200.0) Est GFR (CKD-EPI)NonAf 44.8 L (60.0-200.0) AST 39 H (13-35) U/L Total Protein 6.1 L (6.2-8.2) g/dL Albumin 3.5 L (3.8-4.9) g/dL Albumin/Globulin Ratio 1.37 L (1.60-3.17) g/dL TSH 4.890 H (0.465-4.680) mIU/L Microbiology - Last 24 Hours (Table) 03/15/22 11:55 Urine Culture - Preliminary Urine,Voided 03/14/22 17:33 Blood Culture - Preliminary Blood No Growth after 24 hours
[2022-03-17] MEDS: LEVOTHYROXINE 25 MCG TAB PO SCH (05:31)
[2022-03-17 06:53] LABS: African American GFR (CKD) 37 (>60 ml/min/1.73 sqM); Anion Gap 9 mmol/L; Blood Urea Nitrogen 39 mg/dL (7-17); Calcium 8.9 mg/dL (8.4-10.2); Carbon Dioxide 19 mmol/L (22-30); Chloride 109 mmol/L (98-107); Glucose 121 mg/dL (74-99); Non-African American GFR(CKD) 32 (>60 ml/min/1.73 sqM); Sodium 137 mmol/L (137-145)
[2022-03-17 07:13] LABS: Basophils % (A) 0 %; Eosinophils # (A) 0.3 k/uL (0-0.7); Eosinophils % (A) 4 %; HCT 39.1 % (34.0-46.0); HGB 12.7 gm/dL (11.4-16.0); Lymphocytes % (A) 24 %; MCHC 32.5 g/dL (31.0-37.0); MCV 101.7 fL (80.0-100.0); Macrocytosis Slight; Monocytes # (A) 0.8 k/uL (0-1.0); Monocytes % (A) 9 %; Neutrophils # (A) 5.2 k/uL (1.3-7.7); Neutrophils % (A) 62 %; Platelet Count 240 k/uL (150-450); RBC 3.85 m/uL (3.80-5.40); RDW 15.4 % (11.5-15.5); WBC 8.5 k/uL (3.8-10.6)
[2022-03-17] MEDS: CHOLECALCIFEROL 25 MCG (1000 IU) TABLET PO SCH (07:56)
[2022-03-17] MEDS: TAMSULOSIN 0.4 MG CAP.ER.24H PO SCH (07:56)
[2022-03-17] MEDS: allopurinoL 300 MG TAB PO SCH (07:56)
[2022-03-17] MEDS: CYANOCOBALAMIN 500 MCG TAB PO SCH (07:56)
[2022-03-17] MEDS: FERROUS SULFATE 325 MG TAB PO SCH (07:56)
[2022-03-17] MEDS: FOLIC ACID 1 MG TAB PO SCH (07:56)
[2022-03-17] MEDS: APIXABAN 5 MG TAB PO SCH ×2 (07:58→19:52)
[2022-03-17] MEDS ORDERED: ASPIRIN 325 MG TAB PO SCH (09:00)
--- NOTE | 2022-03-17 09:30 | P.CRDCN ---
History of Present Illness Consult date: 03/17/22 History of present illness: HISTORY OF PRESENT ILLNESS: This is a 81-year-old female with a past medical history significant for paroxysmal atrial fibrillation, hypertension, COPD, and hypothyroidism. Patient does not follow with a gate services supervisor at [facility]. She believes she follows witha gate services supervisor somewhere but is unsure of the name. We have been asked to see the patient in consultation for CVA. Patient examined at the [facility] Patient was brought into the hospital secondary to increased confusion over the past few days. The patient remains confused at the time of our examination. She denies any chest pain or pressure. She denies any shortness of breath. Denies any dizziness or lightheadedness. She underwent MRI yesterday which revealed possible embolic phenomenon bilaterally. * EKG reveals sinus mechanism * Chest xray cardiomegaly and mild pulmonary vascular congestion. * Laboratory data: WBC 8.5. Hemoglobin 12.7. Platelet count 240. Sodium 137. Potassium 4.0. BUN 39. Creatinine 1.55. * Current home cardiac medications include Eliquis 5 mg twice a day, lisinopril 20 mg daily * Most recent echocardiogram obtained in 2018 revealed ejection fraction 55-60%, mild TR, mild pulmonary hypertension REVIEW OF SYSTEMS: At the time of my exam: Unable to obtain thorough review of systems secondary to altered mental status PHYSICAL EXAM: VITAL SIGNS: Reviewed. GENERAL: Well-developed in no acute distress. HEENT: Head is normocephalic. Pupils are equal, round. Sclerae anicteric. Mucous membranes of the mouth are moist. Neck supple. No JVD or thyromegaly LUNGS: Respirations even and unlabored. Lungs essentially clear to auscultation bilaterally. HEART: Regular rate and rhythm. S1 and S2 heard. ABDOMEN: Soft. Nondistended. Nontender. EXTREMITIES: Normal range of motion. No clubbing or cyanosis. Peripheral pulses intact. No lower extremity edema NEUROLOGIC: Awake and alert. Oriented x 1-2. ASSESSMENT: Altered mental status, MRI reveals possible bilateral embolic phenomena Paroxysmal atrial fibrillation COPD COPD Hypothyroidism PLAN: Obtain 2D echo to assess cardiac structure and function Discontinue lisinopril as patient's blood pressures have been running on the lower side Resume Eliquis Neurology following Further recommendations pending patient course Nurse practitioner note has been reviewed by physician. Signing provider agrees with the documented findings, assessment, and plan of care. Past Medical History Past Medical History: Atrial Fibrillation, Asthma, COPD, Eye Disorder, GERD/Reflux, Hypertension, Rheumatoid Arthritis (RA), Thyroid Disorder Additional Past Medical History / Comment(s): Pt recently admitted to [facility] on 06/04/19 with UTI/R side pneumonia with sepsis, mita r groin. Other hx: Macular degeneration bilaterally-legally blind, rheumatoid arthritis in multple joints, osteoporosis, migraines, hypothyroid, urinary incontinence at times. History of Any Multi-Drug Resistant Organisms: ESBL Date of last positivie culture/infection: 06/05/18 MDRO Source:: esbl urine Past Surgical History: Appendectomy, Cholecystectomy, Hysterectomy, Orthopedic Surgery, Tonsillectomy Additional Past Surgical History / Comment(s): D&C, colonoscopy, left knee scope, right arm ORIF. Past Anesthesia/Blood Transfusion Reactions: Motion Sickness Additional Past Anesthesia/Blood Transfusion Reaction / Comment(s): severe motion sickness Past Psychological History: No Psychological Hx Reported Additional Psychological History / Comment(s): Pt resides with her spouse of 48yrs. She just got a walker. She is legally blind, no longer drives, her spouse drives and manages her medications. She has contact with a great manuelito that lives next door. She is retired, worked most recently at [employer]. She has oxygen that she wears prn at 2L/NC. No recent travel. No experience. Smoking Status: Former smoker Past Alcohol Use History: None Reported Additional Past Alcohol Use History / Comment(s): patient was a smoker of a half a pack per day for 40 years and quit when she was 60 years of age. No alcohol use. Past Drug Use History: None Reported - Past Family History Mother Additional Family Medical History / Comment(s): Pt states mother had severe migraines and at the age of 43yrs while hospitalized with severe migraine but does not know cause of . Father Family Medical History: Myocardial Infarction (GA) Additional Family Medical History / Comment(s): Father of a GA at the age of 54yrs. Family Additional Family Medical History / Comment(s): Patient denies any history of co ronary artery disease Medications and Allergies Home Medications Medication Instructions Recorded Confirmed Type Folic Acid 1 mg PO DAILY 06/05/18 03/14/22 History Montelukast [Singulair] 10 mg PO HS 06/05/18 03/14/22 History Apixaban [Eliquis] 5 mg PO BID tab 06/10/18 03/14/22 Rx Fremanezumab-Vfrm [Ajovy Syringe] 225 mg SQ Q30D 06/03/19 03/14/22 History Albuterol Inhaler [Ventolin Hfa 2 puff INHALATION RT-QID PRN 03/14/22 03/14/22 History Inhaler] Cholecalciferol [Vitamin D3 (25 50 mcg PO DAILY 03/14/22 03/14/22 History Mcg = 1000 Iu)] Doxycycline Hyclate 100 mg PO BID 03/14/22 03/14/22 History Ferrous Sulfate [Feosol] 325 mg PO DAILY 03/14/22 03/14/22 History Levothyroxine Sodium [Synthroid] 25 mcg PO DAILY 03/14/22 03/14/22 History allopurinoL 300 mg PO Q48H 03/14/22 03/14/22 History lisinopriL [Zestril] 20 mg PO DAILY 03/14/22 03/14/22 History Allergies Allergy/AdvReac Type Severity Reaction Status Date / Time adhesive tape Allergy Unknown Verified 03/14/22 15:33 ciprofloxacin [From Cipro] Allergy Unknown Verified 03/14/22 15:33 epinephrine Allergy Unknown Verified 03/14/22 15:33 latex Allergy Rash/Hives Verified 03/14/22 15:33 Penicillins Allergy Unknown Verified 03/14/22 15:33 povidone-iodine Allergy Unknown Verified 03/14/22 15:33 [From Betadine] soap [From Betadine] Allergy Unknown Verified 03/14/22 15:33 Sulfa (Sulfonamide Allergy Unknown Verified 03/14/22 15:33 Antibiotics) Tetanus Vaccines and Toxoid Allergy Unknown Verified 03/14/22 15:33 amitriptyline [From Elavil] AdvReac Confusion Verified 03/14/22 15:33 Physical Exam Vitals: Vital Signs Temp Pulse Resp BP BP Pulse Ox 03/17/22 04:08 98.0 F 67 18 94/60 93 L 03/16/22 21:50 18 03/16/22 19:58 105/66 03/16/22 19:07 98.2 F 84 16 79/54 92 L 03/16/22 12:01 98 F 68 15 105/66 97 Intake and Output 03/16/22 03/17/22 03/17/22 22:59 06:59 14:59 Output Total 500 200 Balance -500 -200 Output: Urine 500 100 Post Void Residual 100 Other: Voiding Method Bedside Commode Diaper # Voids 2 Results 03/17/22 06:06 03/17/22 06:06 CBC 03/16/22 03/17/22 Range/Units 12:53 06:06 WBC 8.8 8.5 (3.8-10.6) k/uL RBC 4.15 3.85 (3.80-5.40) m/uL Hgb 14.0 12.7 (11.4-16.0) gm/dL Hct 42.1 39.1 (34.0-46.0) % Plt Count 245 240 (150-450) k/uL Comprehensive Metabolic Panel 03/16/22 03/17/22 Range/Units 12:53 06:06 Sodium 134 L 137 (137-145) mmol/L Potassium 4.1 4.0 (3.5-5.1) mmol/L Chloride 103 109 H (98-107) mmol/L Carbon Dioxide 20 L 19 L (22-30) mmol/L BUN 32 H 39 H (7-17) mg/dL Creatinine 1.29 H 1.55 H (0.52-1.04) mg/dL Glucose 106 H 121 H (74-99) mg/dL Calcium 9.3 8.9 (8.4-10.2) mg/dL Current Medications Generic Name Dose Route Start Last Admin Trade Name Freq PRN Reason Stop Dose Admin Acetaminophen 650 mg 03/14/22 14:55 Acetaminophen Tab 325 Mg Tab PO Q6HR PRN Mild Pain or Fever > 100.5 Albuterol Sulfate 2.5 mg 03/14/22 16:40 Albuterol Nebulized 2.5 Mg/3 Ml INHALATION RT-QID PRN Shortness Of Breath Allopurinol 300 mg 03/15/22 09:00 03/15/22 08:08 Allopurinol 300 Mg Tab PO 300 mg Q48H [facility] Administration Aspirin 325 mg 03/17/22 09:00 Aspirin 325 Mg Tab PO DAILY [facility] Cholecalciferol 50 mcg 03/15/22 09:00 03/16/22 07:50 Cholecalciferol 25 Mcg (1000 Iu) Tablet PO 50 mcg DAILY [facility] Administration Cyanocobalamin 1,000 mcg 03/16/22 10:00 03/16/22 11:58 Cyanocobalamin 500 Mcg Tab PO 1,000 mcg DAILY [facility] Administration Ferrous Sulfate 325 mg 03/15/22 09:00 03/16/22 07:50 Ferrous Sulfate 325 Mg Tab PO 325 mg DAILY [facility] Administration Folic Acid 1 mg 03/15/22 09:00 03/16/22 07:50 Folic Acid 1 Mg Tab PO 1 mg DAILY [facility] Administration Ceftriaxone Sodium 1 gm/ 50 mls @ 100 mls/hr 03/14/22 18:00 03/16/22 18:29 Sodium Chloride IVPB 100 mls/hr Q24H [facility] Administration Protocol Levothyroxine Sodium 25 mcg 03/15/22 06:30 03/17/22 05:31 Levothyroxine 25 Mcg Tab PO 25 mcg DAILY@0630 [facility] Administration Lisinopril 20 mg 03/15/22 09:00 03/16/22 07:50 Lisinopril 20 Mg Tab PO 20 mg DAILY [facility] Administration Montelukast Sodium 10 mg 03/14/22 21:00 03/16/22 19:49 Montelukast 10 Mg Tab PO 10 mg HS [facility] Administration Naloxone HCl 0.2 mg 03/14/22 14:55 Naloxone 0.4 Mg/Ml 1 Ml Vial IV Q2M PRN Opioid Reversal Tamsulosin HCl 0.4 mg 03/16/22 09:00 03/16/22 09:46 Tamsulosin 0.4 Mg Cap.Er.24h PO 0.4 mg PC-BRKFST [facility] Administration Intake and Output 03/16/22 03/17/22 03/17/22 22:59 06:59 14:59 Output Total 500 200 Balance -500 -200 Output: Urine 500 100 Post Void Residual 100 Other: Voiding Method Bedside Commode Diaper # Voids 2 03/17/22 06:06 03/17/22 06:06
--- NOTE | 2022-03-17 09:43 | CA ---
Transthoracic Echo Report Name: Radhika Duncan Age: 81 Gender: F : 1940 Exam Date: 03/16/2022 14:20 Exam Location: [place] [facility] Ht (in): 51 Wt (lb): 150 Ordering Physician: Fernie Wadsworth MD Attending/Referring Phys: Sapphire Stylus Grinder Rachell High RDCS Procedure CPT: Indications: stroke Cardiac Hx: Technical Quality: Fair Contrast 1: Total Dose (mL): Contrast 2: Total Dose (mL): MEASUREMENTS (Male / Female) Normal Values 2D ECHO LV Diastolic Diameter PLAX 2.5 cm 4.2 - 5.9 / 3.9 - 5.3 cm LV Systolic Diameter PLAX 1.6 cm IVS Diastolic Thickness 1.2 cm 0.6 - 1.0 / 0.6 - 0.9 cm LVPW Diastolic Thickness 1.4 cm 0.6 - 1.0 / 0.6 - 0.9 cm LV Relative Wall Thickness 1.0 M-MODE Aortic Root Diameter MM 3.0 cm LA Systolic Diameter MM 3.6 cm LA Ao Ratio MM 1.2 MV E Point Septal Separation 0.8 cm AV Cusp Separation MM 1.6 cm DOPPLER AV Peak Velocity 148.1 cm/s AV Peak Gradient 8.8 mmHg MV Area PHT 5.8 cm??? Mitral E Point Velocity 67.0 cm/s Mitral A Point Velocity 76.5 cm/s Mitral E to A Ratio 0.9 MV Deceleration Time 131.0 ms TR Peak Velocity 209.8 cm/s TR Peak Gradient 17.6 mmHg Right Ventricular Systolic Press 22.6 mmHg FINDINGS Left Ventricle Left ventricular ejection fraction is estimated at 55-60 %. Left ventricular cavity size normal. Left ventricular wall thickness normal. Right Ventricle The right ventricle is normal in size and function. Right Atrium The right atrium is normal in size. Left Atrium The left atrium is normal in size. Mitral Valve Structurally normal mitral valve without significant stenosis or prolapse. There is trace mitral regurgitation. Mitral valve thickened. Aortic Valve Structurally normal aortic valve without significant sclerosis or stenosis. There is no aortic regurgitation. Focal thickening of the aortic valve cusps. Tricuspid Valve Structurally normal tricuspid valve without significant stenosis. Pulmonary artery systolic pressure is normal. Trace tricuspid regurgitation. Pulmonic Valve Structurally normal pulmonic valve without significant stenosis. There is no pulmonic regurgitation. Pericardium trivial pericardial effusion. Aorta Normal aortic root dimension. CONCLUSIONS Normal left ventricular dimension and systolic function Aortic sclerosis without stenosis or insufficiency Mitral annular calcification Previewed by: Dr. David Pedroza MD (Electronically Signed) Final Date: 17 March 2022 09:42
--- NOTE | 2022-03-17 11:54 | CDI ---
Documentation Clarification Form Date: 03/17/2022 11:31:29 AM From: Zee Javed RN CCDS Admit Date: 03/14/2022 02:55:00 PM Patient Name: Radhika Duncan Visit Number: [id number] Discharge Date: ATTENTION: The Clinical Documentation Specialists (CDI) and [facility] Coding Staff appreciate your assistance in clarifying documentation. Please respond to the clarification below the line at the bottom and electronically sign. The CDI & [facility] Coding staff will review the response and follow-up if needed. Please note: Queries are made part of the Legal Health Record. If you have any questions, please contact the author of this message via ITS. Dr. Fernie Wadsworth Your patient has the documented symptom of Change in Mental Status 03/14,H&P. Additional clarification regarding the etiology/cause of this symptom is requested. History/Risk Factors: 81-year-old female presents to the ED with increased confusion for the last two to three days. Medical History: Atrial Fibrillation, Asthma and COPD. Clinical Indicators: 03/16, Medicine progress note: Change in mental status and weakness, possibly secondary to acute stroke as noted on MRI. EEGAD: 03/16 Normal routine EEG. There is no focal slowing, epileptiform discharge or seizure on the EEG. Brain MRI w/con: 03/16 correlate for possible embolic phenomenon 03/16, Neurology progress note: Altered mental status encephalopathy of unknown etiology . Treatment: 03/14 Eliquis 5mg PO BID, EEGAD and Neuro consult. Please clarify the etiology of the symptom of Altered Mental Status: [ ] Metabolic Encephalopathy due to Acute Stroke. [ ] Other condition (please specify) [ ] Unable to determine (Template Last Revised: October 2020) Unable to determine MTDD
--- NOTE | 2022-03-17 13:45 | P.PN ---
Subjective Progress Note Date: 03/17/22 The patient continues about the same per nurse. The patient resides alone and has neighbor that comes by and helps and unsure if she is compliant taking her eliquis. She states she has chronic visual disturbance. She had MRI Brain and reported as correlate for embolic phenomenon bilaterally. Consider constrast-enhanced exam. I personally reviewed it and agree that there is embolic phenomenon over bilateral frontal/pareital region. MRI Brain w/ and it is reported as no enahnacement to suggest metastatic disease, correlate for possible embolic phenomenon. EEG: Is normal. There is no focal slowing, epileptiform discharges or seizure on the EEG. 2D echo is reported as normal left ventricular dimension and systolic function. Aortic sclerosis without stenosis or insufficieincy. Mitral annular c alcification. Left atrium is normal in size. Objective - Vital Signs Vital signs: Vital Signs Temp 97.4 F L 03/17/22 11:04 Pulse 79 03/17/22 11:04 Resp 16 03/17/22 11:04 BP 104/57 03/17/22 11:04 Pulse Ox 98 03/17/22 11:04 FiO2 Intake & Output 03/16/22 03/17/22 03/17/22 18:59 06:59 18:59 Output Total 1000 200 100 Balance -1000 -200 -100 Output: Urine 1000 100 100 Straight 500 Post Void Residual 100 Other: Voiding Method Bedside Commode Bedside Commode Bedside Commode Diaper Diaper Diaper # Voids 2 1 - Exam GENERAL: The patient is lying in bed and is not in acute distress. NEUROLOGICAL: Limited because of cooperation. Higher mental function: The patient is awake, alert, oriented to self. She stated she was in the hospital. She continued to state year is 192 but correctly stated the month. She is more awake and responsive today She is following simple commands. She was able to name phone and gloves. Does not appear to have aphasia. At time it appeared she was neglecting left side but on repeated she does not have neglect. Cranial nerves: The pupils are round, equal and reactive to light. Visual paez is hard to assess because of cooperation and has poor vision from macular degeneration. No facial weakness. No dysarthria. Motor: The strength is right ring finger extension is weak but otherwise moving all extremities above gravity. Normal tone and bulk. Cerebellum: Unable to assess because of cooperation. Sensation: Normal to touch throughout. Some other workup in our facility during this hospitalization consisted of: Vitamin B12 is 376 Folate levels more than 20 TSH is 4.890 and a free T4 is 0.89. Ammonia level is less than 9 Sodium is 131, creatinine is 1.04, Taveras 8.9 AST of 36 ALT of 18. Urinalysis is negative for urinary tract infection Urine drug screen is not detected. CT of the head is reported as no acute intracranial processes. Nonspecific white matter changes, likely secondary due to chronic small vessel ischemic disease. I personally reviewed the CT of the head and I agree there is no acute subacute ischemic stroke. There is no intraparenchymal hemorrhage. Carotid duplex is reported as limited evaluation at but does not show any evidence of hemodynamic arterial stenosis in the carotid. Vertebral arteries are not seen She had MRI Brain and reported as correlate for embolic phenomenon bilaterally. Consider constrast-enhanced exam. I personally reviewed it and agree that there is embolic phenomenon over bilateral frontal/pareital region. MRI Brain w/ and it is reported as no enahnacement to suggest metastatic disease, correlate for possible embolic phenomenon. EEG: Is normal. There is no focal slowing, epileptiform discharges or seizure on the EEG. 2D echo is reported as normal left ventricular dimension and systolic function. Aortic sclerosis without stenosis or insufficieincy. Mitral annular calcification. Left atrium is normal in size. - Labs CBC & Chem 7: 03/17/22 06:06 03/17/22 06:06 Labs: Abnormal Lab Results - Last 24 Hours (Table) 03/16/22 03/16/22 03/17/22 Range/Units 12:53 12:53 06:06 MCV 101.4 H 101.7 H (80.0-100.0) fL Sodium 134 L (137-145) mmol/L Chloride (98-107) mmol/L Carbon Dioxide 20 L (22-30) mmol/L BUN 32 H (7-17) mg/dL Creatinine 1.29 H (0.52-1.04) mg/dL Glucose 106 H (74-99) mg/dL 03/17/22 Range/Units 06:06 MCV (80.0-100.0) fL Sodium (137-145) mmol/L Chloride 109 H (98-107) mmol/L Carbon Dioxide 19 L (22-30) mmol/L BUN 39 H (7-17) mg/dL Creatinine 1.55 H (0.52-1.04) mg/dL Glucose 121 H (74-99) mg/dL Microbiology - Last 24 Hours (Table) 03/14/22 17:33 Blood Culture - Preliminary Blood No Growth after 48 hours 03/15/22 11:55 Urine Culture - Final Urine,Voided Assessment and Plan Assessment: Acute ischemic stroke (over bilateral fronto/parieta): Seems more cardioembolic and unsure if patient is compliant taking her eliquis. 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 Aortic sclerosis without stenosis or insufficieincy. Mitral annular calcification. Left atrium is normal in size. Cardiology is consulted and recommend to resume Eliquis. I agree to resume Eliquis 5mg bid. Started Lipitor 40mg qhs for secondary stroke prophylaxis. Ordered lipid panel. Because of low normal vitamin B12: I started the patient on B12 1000mcg daily. Every 4 hours neuro checks PT and OT are consulted. We'll defer the rest of medical management to the primary team I feel her living condition should be addressed. I don't feel it is safe for patient to continue to resides byself. It seems she has some assistance by her neighbor but I feel she needs more assistance. The plan is discussed with her nurse. Tod Esqueda M.D. Neuro-hospitalist Time with Patient: Less than 30
--- NOTE | 2022-03-17 15:07 | P.PN ---
Subjective Progress Note Date: 03/17/22 This is a 81 year old female who was recently admitted with increased confusion over the last few days and is being closely monitored. Concern for possible urinary tract infection, present on admission and was started on IV ceftriaxone. Neurology is consulted and undergoing neurological work up. MRI of the brain is ordered. @d echo as well. Patient is afebrile and no reports of chest pain or shortness of breath noted. 03/16/2022 Patient is seen today and appears fatigued. Patient continues on IV ceftriaxone and awaiting urine culture. Patient to have mri of the brain today. Patient with some urinary retention per nursing staff and ordered bladder scan and U/S of the renals and bladder. Patient is afebrile and denies any chest pain or shortness of breath. Patient is weak and will have PT evaluate. Consult to case management made for possible ECF. 03/17/2022 Patient is seen and evaluated and follow-up more awake although continues with confusion. Neurology following closely and patient has been evaluated by cardiology. No plans for TAL and okay to resume Eliquis of 5 mg twice daily. Will discontinue aspirin. Patient did have normal EEG and 2-D echo showing normal left ventricular systolic function with some aortic sclerosis without any stenosis or insufficiency. Patient will continue on statin and continue with neuro checks. Patient continues with weakness and will have physical therapy evaluate for possible ECF. Case management following and working to contact family members as patient lives at home and patient is unsafe to return home alone. Patient was taking anticoagulant for atrial fibrillation and unsure how compliant she has. Patient is currently afebrile and denies any chest pain or shortness of breath. Patient tolerating diet with no reports of nausea or vomiting noted. Patient is urinating and does not want indwelling Us catheter. Discussed with nursing staff about continuing to monitor for any signs of retention and will continue Flomax for now. Urine culture was negative. Review of systems: Constitutional: reports of fatigue, no fever, or chills Cardiovascular: No reports of chest pain or palpitations Respiratory: No reports of shortness of breath or cough GI: No reports of nausea, no reports of of vomiting, no reports of diarrhea : No reports of dysuria, reports urgency to urinate and fullness Neurovascular: reports of generalized weakness All medications have been reviewed Active Medications Acetaminophen (Acetaminophen Tab 325 Mg Tab) 650 mg PO Q6HR PRN PRN Reason: Mild Pain or Fever > 100.5 Albuterol Sulfate (Albuterol Nebulized 2.5 Mg/3 Ml) 2.5 mg INHALATION RT-QID PRN PRN Reason: Shortness Of Breath Allopurinol (Allopurinol 300 Mg Tab) 300 mg PO Q48H [facility] Last Admin: 03/17/22 07:56 Dose: 300 mg Apixaban (Apixaban 5 Mg Tab) 5 mg PO BID [facility]; Protocol Last Admin: 03/17/22 07:58 Dose: 5 mg Atorvastatin Calcium (Atorvastatin 40 Mg Tab) 40 mg PO [facility] Cholecalciferol (Cholecalciferol 25 Mcg (1000 Iu) Tablet) 50 mcg PO DAILY [facility] Last Admin: 03/17/22 07:56 Dose: 50 mcg Cyanocobalamin (Cyanocobalamin 500 Mcg Tab) 1,000 mcg PO DAILY [facility] Last Admin: 03/17/22 07:56 Dose: 1,000 mcg Ferrous Sulfate (Ferrous Sulfate 325 Mg Tab) 325 mg PO DAILY [facility] Last Admin: 03/17/22 07:56 Dose: 325 mg Folic Acid (Folic Acid 1 Mg Tab) 1 mg PO DAILY [facility] Last Admin: 03/17/22 07:56 Dose: 1 mg Ceftriaxone Sodium 1 gm/ (Sodium Chloride) 50 mls @ 100 mls/hr IVPB Q24H [facility]; Protocol Last Admin: 03/16/22 18:29 Dose: 100 mls/hr Levothyroxine Sodium (Levothyroxine 25 Mcg Tab) 25 mcg PO DAILY@0630 [facility] Last Admin: 03/17/22 05:31 Dose: 25 mcg Montelukast Sodium (Montelukast 10 Mg Tab) 10 mg PO [facility] Last Admin: 03/16/22 19:49 Dose: 10 mg Naloxone HCl (Naloxone 0.4 Mg/Ml 1 Ml Vial) 0.2 mg IV Q2M PRN PRN Reason: Opioid Reversal Tamsulosin HCl (Tamsulosin 0.4 Mg Cap.Er.24h) 0.4 mg PO [id number] Last Admin: 03/17/22 07:56 Dose: 0.4 mg PHYSICAL EXAMINATION: GENERAL: The patient is alert , more awake today, mildly confused, Well developed, well nourished. elderly, obese HEENT: Pupils are round and equally reacting to light. EOMI. no scleral icterus. No conjunctival pallor. Normocephalic, atraumatic. No pharyngeal erythema. No thyromegaly. CARDIOVASCULAR: S1 and S2 muffled PULMONARY: diminished breath sounds bilaterally with no wheezing and some scattered rhonchi noted. ABDOMEN: soft. non tender on exam. Obese. non-distended, normal bowel sounds. No palpable organomegaly. MUSCULOSKELETAL: No joint swelling or deformity. EXTREMITIES: No cyanosis, clubbing, or pedal edema. NEUROLOGICAL: Gross neurological examination did not reveal any focal deficits. diffuse weakness SKIN: No rashes. Assessment: Change in mental status and weakness, possibly secondary to acute ischemic stroke over bilateral frontal parietal regions as noted on MRI Bilateral lesions of the periventricular and subcortical white matter Possible dementia versus hydrocephalus Increased white blood count Rule out urinary tract infection Urinary retention, possibly secondary to UTI Atrial fibrillation history Hypertension Hyperlipidemia Macular degeneration of bilateral eyes with visual disturbances GI prophylaxis DVT prophylaxis bavck on eliquis Full code Plan: Recommend to continue with current medications and management . Neurology fol lowing and undergoing neurological work up including MRI of the brain which is showing an acute ischemic stroke. Possibly cardioembolic and patient was evaluated with an echo by cardiology with no plans for TAL and recommending resuming Eliquis and discontinuing aspirin and continuing on statin. Patient continues with weakness and will likely require ECF for continued physical therapy and also need to contact family as patient lives alone and feel discharge home would be unsafe for this patient. PT/OT to evaluate. Recommend repeat labs and close monitoring. Case management consulted and following for possible ECF and working on contacting family. Due to multiple complex medical issues, prognosis is guarded. The impression and plan of care has been dictated by Nanette Leung, nurse practitioner as directed. MD Mackenzie I have performed a history and examination and MDM of this patient, discussed the same with the dictator, and agree with the dictator's assessment and plan as written ,documented as a scribe. Based on total visit time, I have performed more than 50% of the visit. Any additional findings or plans will be noted. Objective - Vital Signs Vital signs: Vital Signs Temp 97.4 F L 03/17/22 11:04 Pulse 79 03/17/22 11:04 Resp 16 03/17/22 11:04 BP 104/57 03/17/22 11:04 Pulse Ox 98 03/17/22 11:04 FiO2 Intake & Output 03/16/22 03/17/22 03/17/22 18:59 06:59 18:59 Output Total 1000 200 100 Balance -1000 -200 -100 Output: Urine 1000 100 100 Straight 500 Post Void Residual 100 Other: Voiding Method Bedside Commode Bedside Commode Bedside Commode Diaper Diaper Diaper # Voids 2 1 - Labs CBC & Chem 7: 03/17/22 06:06 03/17/22 06:06 Labs: Abnormal Lab Results - Last 24 Hours (Table) 03/17/22 03/17/22 Range/Units 06:06 06:06 MCV 101.7 H (80.0-100.0) fL Chloride 109 H (98-107) mmol/L Carbon Dioxide 19 L (22-30) mmol/L BUN 39 H (7-17) mg/dL Creatinine 1.55 H (0.52-1.04) mg/dL Glucose 121 H (74-99) mg/dL Microbiology - Last 24 Hours (Table) 03/14/22 17:33 Blood Culture - Preliminary Blood No Growth after 48 hours 03/15/22 11:55 Urine Culture - Final Urine,Voided
[2022-03-17] MEDS: ATORVASTATIN 40 MG TAB PO SCH (19:52)
[2022-03-17] MEDS: MONTELUKAST 10 MG TAB PO SCH (19:52)
[2022-03-17] MEDS ORDERED: SODIUM CHLORIDE 0.9% 500 ML 500 ML IV ONE (20:01)
[2022-03-17 20:32] LABS: Chol/HDL Ratio 3.24 Ratio
[2022-03-18] MEDS ORDERED: METOPROLOL TARTRATE 25 MG TAB PO STA (02:35)
[2022-03-18] MEDS: LEVOTHYROXINE 25 MCG TAB PO SCH (05:49)
[2022-03-18 08:13] LABS: African American GFR (CKD) 50 (>60 ml/min/1.73 sqM); Anion Gap 6 mmol/L; Blood Urea Nitrogen 34 mg/dL (7-17); Calcium 8.7 mg/dL (8.4-10.2); Carbon Dioxide 22 mmol/L (22-30); Chloride 109 mmol/L (98-107); Glucose 111 mg/dL (74-99); Magnesium 2.1 mg/dL (1.6-2.3); Non-African American GFR(CKD) 43 (>60 ml/min/1.73 sqM); Potassium 4.3 mmol/L (3.5-5.1); Sodium 137 mmol/L (137-145)
[2022-03-18] MEDS: APIXABAN 5 MG TAB PO SCH ×2 (09:12→21:10)
[2022-03-18] MEDS: FERROUS SULFATE 325 MG TAB PO SCH (09:12)
[2022-03-18] MEDS: TAMSULOSIN 0.4 MG CAP.ER.24H PO SCH (09:12)
[2022-03-18] MEDS: CYANOCOBALAMIN 500 MCG TAB PO SCH (09:13)
[2022-03-18] MEDS: CHOLECALCIFEROL 25 MCG (1000 IU) TABLET PO SCH (09:13)
[2022-03-18] MEDS: FOLIC ACID 1 MG TAB PO SCH (09:13)
--- NOTE | 2022-03-18 11:52 | P.PN ---
Subjective Progress Note Date: 03/18/22 The patient is seen at bedside and feels about the same. I spoke with her neighbor (Tomás) via phone and he stated she does live a lone but he helps out. He did acknowledge that she is legally blind. She is on Eliquis and he is not sure if she missed her Eliquis which he does not think so. Per patient he is and she has two nieces. Per director of casework services it seems the nieces don't want to be the Guardian and working possibly making her neighbor the Guardian and patient is agreement. Objective - Vital Signs Vital signs: Vital Signs Temp 98.3 F 03/18/22 07:57 Pulse 73 03/18/22 07:57 Resp 18 03/18/22 07:57 BP 107/62 03/18/22 07:57 Pulse Ox 97 03/18/22 07:57 FiO2 Intake & Output 03/17/22 03/18/22 03/18/22 18:59 06:59 18:59 Output Total 100 150 Balance -100 -150 Output: Urine 100 100 Post Void Residual 50 Other: Voiding Method Bedside Commode Bedside Commode Diaper Diaper # Voids 1 - Exam GENERAL: The patient is lying in bed and is not in acute distress. NEUROLOGICAL: Limited because of cooperation. Higher mental function: The patient is awake, alert, oriented to self. She stated she was in the hospital. She continued to state year is 1921 but correctly stated the month. She is more awake and responsive today She is following simple commands. She was able to name phone and gloves. Does not appear to have aphasia. At time it appeared she was neglecting left side but on repeated she does not have neglect. Cranial nerves: The pupils are round, equal and reactive to light. Visual paez is hard to assess because of cooperation and has poor vision from macular degeneration. No facial weakness. No dysarthria. Motor: The strength is right ring finger extension is weak but otherwise moving all extremities above gravity. Normal tone and bulk. Cerebellum: Unable to assess because of cooperation. Sensation: Normal to touch throughout. Some other workup in our facility during this hospitalization consisted of: Vitamin B12 is 376 Folate levels more than 20 TSH is 4.890 and a free T4 is 0.89. Ammonia level is less than 9 Lipid panel: TG 88, Cholestrol 199, LDL 120 and HDL 61. Urinalysis is negative for urinary tract infection Urine drug screen is not detected. CT of the head is reported as no acute intracranial processes. Nonspecific white matter changes, likely secondary due to chronic small vessel ischemic disease. I personally reviewed the CT of the head and I agree there is no acute subacute ischemic stroke. There is no intraparenchymal hemorrhage. Carotid duplex is reported as limited evaluation at but does not show any evidence of hemodynamic arterial stenosis in the carotid. Vertebral arteries are not seen She had MRI Brain and reported as correlate for embolic phenomenon bilaterally. Consider constrast-enhanced exam. I personally reviewed it and agree that there is embolic phenomenon over bilateral frontal/pareital region. MRI Brain w/ and it is reported as no enahnacement to suggest metastatic disease, correlate for possible embolic phenomenon. EEG: Is normal. There is no focal slowing, epileptiform discharges or seizure on the EEG. 2D echo is reported as normal left ventricular dimension and systolic function. Aortic sclerosis without stenosis or insufficieincy. Mitral annular calcification. Left atrium is normal in size. - Labs CBC & Chem 7: 03/17/22 06:06 03/18/22 07:09 Labs: Abnormal Lab Results - Last 24 Hours (Table) 03/17/22 03/18/22 Range/Units 06:06 07:09 Chloride 109 H (98-107) mmol/L BUN 34 H (7-17) mg/dL Creatinine 1.20 H (0.52-1.04) mg/dL Glucose 111 H (74-99) mg/dL HDL Cholesterol 61.40 H (40.00-60.00) mg/dL Microbiology - Last 24 Hours (Table) 03/14/22 17:33 Blood Culture - Preliminary Blood No Growth after 72 hours Assessment and Plan Assessment: Acute ischemic stroke (over bilateral fronto/parieta): Seems more cardioembolic and unsure if patient is missed her eliquis. 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 Aortic sclerosis without stenosis or insufficieincy. Mitral annular calcification. Left atrium is normal in size. Cardiology is consulted and recommend to resume Eliquis. I agree to resume Eliquis 5mg bid. Consider adding ASA 81mg daily for 21 days only then stop ASA since has recent stroke and was on Eliquis. Started Lipitor 40mg qhs for secondary stroke prophylaxis. Because of low normal vitamin B12: I started the patient on B12 1000mcg daily. Every 4 hours neuro checks PT and OT are consulted. We'll defer the rest of medical management to the primary team Her casemanager is working on her living condition since patient is legally blind and resides by self. The plan is discussed with patient, neighbor (Tomás) and nurse. Tod Esqueda M.D. Neuro-hospitalist Time with Patient: Less than 30
--- NOTE | 2022-03-18 12:36 | P.PN ---
Subjective Progress Note Date: 03/18/22 Principal diagnosis: Paroxysmal atrial fibrillation This is a 81-year-old female patient with a past medical history significant for paroxysmal atrial fibrillation as well as multiple comorbid conditions was admitted to the hospital with a change in mental status and brain MRI showing possible bilateral embolic events. The patient was seen this morning beach she is confused. Hemodynamically she is stable with a normal blood pressure and heart rate. She is on oral anticoag ulation with a course. She underwent an echo which revealed normal left ventricle systolic function was no significant valvular abnormalities. She is not reporting any symptoms of chest pain or chest discomfort and no shortness of breath beach she seems to be euvolemic on examination Objective - Vital Signs Vital signs: Vital Signs Temp 97.5 F L 03/18/22 12:08 Pulse 80 03/18/22 12:08 Resp 16 03/18/22 12:08 BP 148/80 03/18/22 12:08 Pulse Ox 97 03/18/22 12:08 FiO2 Intake & Output 03/17/22 03/18/22 03/18/22 18:59 06:59 18:59 Output Total 100 150 Balance -100 -150 Output: Urine 100 100 Post Void Residual 50 Other: Voiding Method Bedside Commode Bedside Commode Toilet Diaper Diaper Bedside Commode # Voids 1 - Constitutional General appearance: Present: no acute distress - Respiratory Respiratory: bilateral: diminished - Cardiovascular Heart sounds: normal: S1, S2 - Labs CBC & Chem 7: 03/17/22 06:06 03/18/22 07:09 Labs: Abnormal Lab Results - Last 24 Hours (Table) 03/17/22 03/18/22 Range/Units 06:06 07:09 Chloride 109 H (98-107) mmol/L BUN 34 H (7-17) mg/dL Creatinine 1.20 H (0.52-1.04) mg/dL Glucose 111 H (74-99) mg/dL HDL Cholesterol 61.40 H (40.00-60.00) mg/dL Microbiology - Last 24 Hours (Table) 03/14/22 17:33 Blood Culture - Preliminary Blood No Growth after 72 hours Assessment and Plan Assessment: Assessment #1 change in mental status #2 possible bilateral embolic events #3 paroxysmal atrial fibrillation #4 COPD Plan #1 continue the current medical regimen including oral anticoagulation #2 the echo was reviewed and showed normal LV function was no significant valvular abnormalities noted
--- NOTE | 2022-03-18 14:29 | P.PN ---
Subjective Progress Note Date: 03/18/22 This is a 81 year old female who was recently admitted with increased confusion over the last few days and is being closely monitored. Concern for possible urinary tract infection, present on admission and was started on IV ceftriaxone. Neurology is consulted and undergoing neurological work up. MRI of the brain is ordered. @d echo as well. Patient is afebrile and no reports of chest pain or shortness of breath noted. 03/16/2022 Patient is seen today and appears fatigued. Patient continues on IV ceftriaxone and awaiting urine culture. Patient to have mri of the brain today. Patient with some urinary retention per nursing staff and ordered bladder scan and U/S of the renals and bladder. Patient is afebrile and denies any chest pain or shortness of breath. Patient is weak and will have PT evaluate. Consult to case management made for possible ECF. 03/17/2022 Patient is seen and evaluated and follow-up more awake although continues with confusion. Neurology following closely and patient has been evaluated by cardiology. No plans for TAL and okay to resume Eliquis of 5 mg twice daily. Will discontinue aspirin. Patient did have normal EEG and 2-D echo showing normal left ventricular systolic function with some aortic sclerosis without any stenosis or insufficiency. Patient will continue on statin and continue with neuro checks. Patient continues with weakness and will have physical therapy evaluate for possible ECF. Case management following and working to contact family members as patient lives at home and patient is unsafe to return home alone. Patient was taking anticoagulant for atrial fibrillation and unsure how compliant she has. Patient is currently afebrile and denies any chest pain or shortness of breath. Patient tolerating diet with no reports of nausea or vomiting noted. Patient is urinating and does not want indwelling Us catheter. Discussed with nursing staff about continuing to monitor for any signs of retention and will continue Flomax for now. Urine culture was negative. 03/18/2022 Patient is seen in follow up with neurology and cardiology following. Patient is maintained on anticoagulant in the form of Eliquis and will continue. Patient continues with weakness and some confusion and case management also following working on ECF. Patient's urinalysis was negative and will discontinue antibiotics. Labs were reviewed. Patient is afebrile denies any chest pain or shortness of breath. Patient is urinating although incontinent and continues to refuse Us is requiring 1. Recommend bladder scans as needed and will continue to monitor. Patient was started on Flomax and recommend continue. Recommend working with physical therapy daily. Case management discussing with family about possible guardianship and also her neighbor who checks on her often. Patient does live alone and there is no safe discharge plan as of yet. PT/OT therapy recommending subacute rehab. Review of systems: unable to obtain as patient is confused All medications have been reviewed Active Medications Acetaminophen (Acetaminophen Tab 325 Mg Tab) 650 mg PO Q6HR PRN PRN Reason: Mild Pain or Fever > 100.5 Albuterol Sulfate (Albuterol Nebulized 2.5 Mg/3 Ml) 2.5 mg INHALATION RT-QID PRN PRN Reason: Shortness Of Breath Allopurinol (Allopurinol 300 Mg Tab) 300 mg PO Q48H [facility] Last Admin: 03/17/22 07:56 Dose: 300 mg Apixaban (Apixaban 5 Mg Tab) 5 mg PO BID [facility]; Protocol Last Admin: 03/18/22 09:12 Dose: 5 mg Atorvastatin Calcium (Atorvastatin 40 Mg Tab) 40 mg PO [facility] Last Admin: 03/17/22 19:52 Dose: 40 mg Cholecalciferol (Cholecalciferol 25 Mcg (1000 Iu) Tablet) 50 mcg PO DAILY [facility] Last Admin: 03/18/22 09:13 Dose: 50 mcg Cyanocobalamin (Cyanocobalamin 500 Mcg Tab) 1,000 mcg PO DAILY [facility] Last Admin: 03/18/22 09:13 Dose: 1,000 mcg Ferrous Sulfate (Ferrous Sulfate 325 Mg Tab) 325 mg PO DAILY [facility] Last Admin: 03/18/22 09:12 Dose: 325 mg Folic Acid (Folic Acid 1 Mg Tab) 1 mg PO DAILY [facility] Last Admin: 03/18/22 09:13 Dose: 1 mg Levothyroxine Sodium (Levothyroxine 25 Mcg Tab) 25 mcg PO DAILY@0630 [facility] Last Admin: 03/18/22 05:49 Dose: 25 mcg Metoprolol Tartrate (Metoprolol Tartrate 25 Mg Tab) 25 mg PO BID [facility] Montelukast Sodium (Montelukast 10 Mg Tab) 10 mg PO HS [facility] Last Admin: 03/17/22 19:52 Dose: 10 mg Naloxone HCl (Naloxone 0.4 Mg/Ml 1 Ml Vial) 0.2 mg IV Q2M PRN PRN Reason: Opioid Reversal Tamsulosin HCl (Tamsulosin 0.4 Mg Cap.Er.24h) 0.4 mg PO [facility] Last Admin: 03/18/22 09:12 Dose: 0.4 mg PHYSICAL EXAMINATION: GENERAL: The patient is alert , awake today, mildly confused, Well developed, well nourished. elderly, obese HEENT: Pupils are round and equally reacting to light. EOMI. no scleral icterus. No conjunctival pallor. Normocephalic, atraumatic. No pharyngeal erythema. No thyromegaly. CARDIOVASCULAR: S1 and S2 muffled PULMONARY: diminished breath sounds bilaterally with no wheezing and some scattered rhonchi noted. ABDOMEN: soft. non tender on exam. Obese. non-distended, normal bowel sounds. No palpable organomegaly. MUSCULOSKELETAL: No joint swelling or deformity. EXTREMITIES: No cyanosis, clubbing, or pedal edema. NEUROLOGICAL: Gross neurological examination did not reveal any focal deficits. diffuse weakness SKIN: No rashes. 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 Neurology following and underwent neurological work up including MRI of the brain which is showing an acute ischemic stroke. Possibly cardioembolic and patient was evaluated with an echo by cardiology with no plans for TAL and recommending resuming Eliquis and discontinuing aspirin and continuing on statin. Neurology recommending aspirin 81 mg for 21 days. Patient continues with weakness and needs ECF for continued physical therapy and family working on which facility. Patient lives alone and this is an unsafe discharge plan for this patient to go home . PT/OT to evaluate. Urine culture was negative and patient has been maintained on antibiotics and will discontinue. Recommend close monitoring. Case management following for possible ECF and working with family. Due to multiple complex medical issues, prognosis is guarded. The impression and plan of care has been dictated by Nanette Leung, nurse practitioner as directed. MD Len I have performed a history and examination and MDM of this patient, discussed the same with the dictator, and agree with the dictator's assessment and plan as written ,documented as a scribe. Based on total visit time, I have performed more than 50% of the visit. Any additional findings or plans will be noted. Objective - Vital Signs Vital signs: Vital Signs Temp 98.3 F 03/18/22 07:57 Pulse 73 03/18/22 07:57 Resp 18 03/18/22 07:57 BP 107/62 03/18/22 07:57 Pulse Ox 97 03/18/22 07:57 FiO2 Intake & Output 03/17/22 03/18/22 03/18/22 18:59 06:59 18:59 Output Total 100 150 Balance -100 -150 Output: Urine 100 100 Post Void Residual 50 Other: Voiding Method Bedside Commode Bedside Commode Diaper Diaper # Voids 1 - Labs CBC & Chem 7: 03/17/22 06:06 03/18/22 07:09 Labs: Abnormal Lab Results - Last 24 Hours (Table) 03/17/22 03/18/22 Range/Units 06:06 07:09 Chloride 109 H (98-107) mmol/L BUN 34 H (7-17) mg/dL Creatinine 1.20 H (0.52-1.04) mg/dL Glucose 111 H (74-99) mg/dL HDL Cholesterol 61.40 H (40.00-60.00) mg/dL Microbiology - Last 24 Hours (Table) 03/14/22 17:33 Blood Culture - Preliminary Blood No Growth after 72 hours
[2022-03-18] MEDS: METOPROLOL TARTRATE 25 MG TAB PO SCH (21:10)
[2022-03-18] MEDS: ATORVASTATIN 40 MG TAB PO SCH (21:10)
[2022-03-18] MEDS: MONTELUKAST 10 MG TAB PO SCH (21:10)
[2022-03-19] MEDS: LEVOTHYROXINE 25 MCG TAB PO SCH (05:27)
[2022-03-19 05:56] LABS: African American GFR (CKD) 67 (>60 ml/min/1.73 sqM); Anion Gap 3 mmol/L; Blood Urea Nitrogen 22 mg/dL (7-17); Calcium 8.9 mg/dL (8.4-10.2); Carbon Dioxide 25 mmol/L (22-30); Chloride 107 mmol/L (98-107); Glucose 97 mg/dL (74-99); Non-African American GFR(CKD) 58 (>60 ml/min/1.73 sqM); Potassium 4.4 mmol/L (3.5-5.1); Sodium 135 mmol/L (137-145)
[2022-03-19] MEDS: TAMSULOSIN 0.4 MG CAP.ER.24H PO SCH (09:31)
[2022-03-19] MEDS: ASPIRIN 81 MG PO SCH (09:32)
[2022-03-19] MEDS: allopurinoL 300 MG TAB PO SCH (09:32)
[2022-03-19] MEDS: FERROUS SULFATE 325 MG TAB PO SCH (09:32)
[2022-03-19] MEDS: FOLIC ACID 1 MG TAB PO SCH (09:32)
[2022-03-19] MEDS: APIXABAN 5 MG TAB PO SCH ×2 (09:32→20:10)
[2022-03-19] MEDS: METOPROLOL TARTRATE 25 MG TAB PO SCH ×2 (09:33→20:10)
[2022-03-19] MEDS: CHOLECALCIFEROL 25 MCG (1000 IU) TABLET PO SCH (09:33)
[2022-03-19] MEDS: CYANOCOBALAMIN 500 MCG TAB PO SCH (09:34)
--- NOTE | 2022-03-19 10:19 | P.PN ---
Subjective Progress Note Date: 03/19/22 Principal diagnosis: Paroxysmal atrial fibrillation This is a 81-year-old female patient with a past medical history significant for paroxysmal atrial fibrillation as well as multiple comorbid conditions was admitted to the hospital with a change in mental status and brain MRI showing possible bilateral embolic events. The patient was seen this morning. Her mentation has improved and she seems to be less lethargic this morning. Clinically she is stable. She is asymptomatic from a cardiovascular standpoint overview. She is hemodynamically stable as well. From the cardiac standpoint overview, we will follow-up with the patient on when necessary case. Continue oral anticoagulation. Objective - Vital Signs Vital signs: Vital Signs Temp 97.7 F 03/19/22 08:00 Pulse 60 03/19/22 08:00 Resp 17 03/19/22 08:00 BP 130/70 03/19/22 08:00 Pulse Ox 97 03/19/22 05:00 FiO2 Intake & Output 03/18/22 03/19/22 03/19/22 18:59 06:59 18:59 Other: Voiding Method Toilet Toilet Toilet Bedside Commode Bedside Commode Bedside Commode Incontinent # Voids 3 1 # Bowel Movements 1 - Constitutional General appearance: Present: no acute distress - Respiratory Respiratory: bilateral: CTA - Cardiovascular Rhythm: regular Heart sounds: normal: S1, S2 - Labs CBC & Chem 7: 03/17/22 06:06 03/19/22 05:13 Labs: Abnormal Lab Results - Last 24 Hours (Table) 03/19/22 Range/Units 05:13 Sodium 135 L (137-145) mmol/L BUN 22 H (7-17) mg/dL Microbiology - Last 24 Hours (Table) 03/14/22 17:33 Blood Culture - Preliminary Blood No Growth after 96 hours Assessment and Plan Assessment: Assessment #1 change in mental status #2 possible bilateral embolic events #3 paroxysmal atrial fibrillation #4 COPD Plan #1 continue the current medical regimen including oral anticoagulation #2 follow-up with the patient on when necessary
[2022-03-19 13:10] VITALS: BMI 31.3
--- NOTE | 2022-03-19 18:50 | P.PN ---
Subjective Progress Note Date: 03/19/22 This is a 81 year old female who was recently admitted with increased confusion over the last few days and is being closely monitored. Concern for possible urinary tract infection, present on admission and was started on IV ceftriaxone. Neurology is consulted and undergoing neurological work up. MRI of the brain is ordered. @d echo as well. Patient is afebrile and no reports of chest pain or shortness of breath noted. 03/16/2022 Patient is seen today and appears fatigued. Patient continues on IV ceftriaxone and awaiting urine culture. Patient to have mri of the brain today. Patient with some urinary retention per nursing staff and ordered bladder scan and U/S of the renals and bladder. Patient is afebrile and denies any chest pain or shortness of breath. Patient is weak and will have PT evaluate. Consult to case management made for possible ECF. 03/17/2022 Patient is seen and evaluated and follow-up more awake although continues with confusion. Neurology following closely and patient has been evaluated by cardiology. No plans for TAL and okay to resume Eliquis of 5 mg twice daily. Will discontinue aspirin. Patient did have normal EEG and 2-D echo showing normal left ventricular systolic function with some aortic sclerosis without any stenosis or insufficiency. Patient will continue on statin and continue with neuro checks. Patient continues with weakness and will have physical therapy evaluate for possible ECF. Case management following and working to contact family members as patient lives at home and patient is unsafe to return home alone. Patient was taking anticoagulant for atrial fibrillation and unsure how compliant she has. Patient is currently afebrile and denies any chest pain or shortness of breath. Patient tolerating diet with no reports of nausea or vomiting noted. Patient is urinating and does not want indwelling Us catheter. Discussed with nursing staff about continuing to monitor for any signs of retention and will continue Flomax for now. Urine culture was negative. 03/18/2022 Patient is seen in follow up with neurology and cardiology following. Patient is maintained on anticoagulant in the form of Eliquis and will continue. Patient continues with weakness and some confusion and case management also following working on ECF. Patient's urinalysis was negative and will discontinue antibiotics. Labs were reviewed. Patient is afebrile denies any chest pain or shortness of breath. Patient is urinating although incontinent and continues to refuse Us is requiring 1. Recommend bladder scans as needed and will continue to monitor. Patient was started on Flomax and recommend continue. Recommend working with physical therapy daily. Case management discussing with family about possible guardianship and also her neighbor who checks on her often. Patient does live alone and there is no safe discharge plan as of yet. PT/OT therapy recommending subacute rehab. 03/19/2022 Patient seen today in follow up and more awake and alert and following commands. Patient is weak and plan is for ecf in [place] as family has provided choices to case management. Patient will also require insurance authorization and has been initiated. Patient is urinating with no reports of retention or dysuria noted. Patient is eating and tolerating diet. Cardiology and neurology have evaluated and is recommending to continue eliquis and statin and outpatient follow up. Patient is afebrile and denies chest pain or shortness of breath. Labs within normal limits. Review of systems: unable to obtain as patient is confused All medications have been reviewed Active Medications Acetaminophen (Acetaminophen Tab 325 Mg Tab) 650 mg PO Q6HR PRN PRN Reason: Mild Pain or Fever > 100.5 Albuterol Sulfate (Albuterol Nebulized 2.5 Mg/3 Ml) 2.5 mg INHALATION RT-QID PRN PRN Reason: Shortness Of Breath Allopurinol (Allopurinol 300 Mg Tab) 300 mg PO Q48H [facility] Last Admin: 03/19/22 09:32 Dose: 300 mg Apixaban (Apixaban 5 Mg Tab) 5 mg PO BID [facility]; Protocol Last Admin: 03/19/22 09:32 Dose: 5 mg Aspirin (Aspirin 81 Mg) 81 mg PO DAILY [facility] Last Admin: 03/19/22 09:32 Dose: 81 mg Atorvastatin Calcium (Atorvastatin 40 Mg Tab) 40 mg PO HS [facility] Last Admin: 03/18/22 21:10 Dose: 40 mg Cholecalciferol (Cholecalciferol 25 Mcg (1000 Iu) Tablet) 50 mcg PO DAILY [facility] Last Admin: 03/19/22 09:33 Dose: 50 mcg Cyanocobalamin (Cyanocobalamin 500 Mcg Tab) 1,000 mcg PO DAILY [facility] Last Admin: 03/19/22 09:34 Dose: 1,000 mcg Ferrous Sulfate (Ferrous Sulfate 325 Mg Tab) 325 mg PO DAILY [facility] Last Admin: 03/19/22 09:32 Dose: 325 mg Folic Acid (Folic Acid 1 Mg Tab) 1 mg PO DAILY [facility] Last Admin: 03/19/22 09:32 Dose: 1 mg Levothyroxine Sodium (Levothyroxine 25 Mcg Tab) 25 mcg PO DAILY@0630 [facility] Last Admin: 03/19/22 05:27 Dose: 25 mcg Metoprolol Tartrate (Metoprolol Tartrate 25 Mg Tab) 25 mg PO BID [facility] Last Admin: 03/19/22 09:33 Dose: 25 mg Montelukast Sodium (Montelukast 10 Mg Tab) 10 mg PO HS [facility] Last Admin: 03/18/22 21:10 Dose: 10 mg Naloxone HCl (Naloxone 0.4 Mg/Ml 1 Ml Vial) 0.2 mg IV Q2M PRN PRN Reason: Opioid Reversal Tamsulosin HCl (Tamsulosin 0.4 Mg Cap.Er.24h) 0.4 mg PO PC-BRKFST [facility] Last Admin: 03/19/22 09:31 Dose: 0.4 mg PHYSICAL EXAMINATION: GENERAL: The patient is alert , awake today, mildly confused, Well developed, well nourished. elderly, obese HEENT: Pupils are round and equally reacting to light. EOMI. no scleral icterus. No conjunctival pallor. Normocephalic, atraumatic. No pharyngeal erythema. No thyromegaly. CARDIOVASCULAR: S1 and S2 muffled PULMONARY: diminished breath sounds bilaterally with no wheezing and some scattered rhonchi noted. ABDOMEN: soft. non tender on exam. Obese. non-distended, normal bowel sounds. No palpable organomegaly. MUSCULOSKELETAL: No joint swelling or deformity. EXTREMITIES: No cyanosis, clubbing, or pedal edema. NEUROLOGICAL: Gross neurological examination did not reveal any focal deficits. diffuse weakness SKIN: No rashes. 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 Neurology following and underwent neurological work up including MRI of the brain which is showing an acute ischemic stroke. Possibly cardioembolic and patient was evaluated with an echo by cardiology with no plans for TAL and recommending resuming Eliquis and discontinuing aspirin and continuing on statin. Neurology recommending aspirin 81 mg for 21 days. Patient continues with weakness and needs ECF for continued physical therapy and family has made choices for ecf a nd insurance auth has been submitted and awaiting approval and accepting facility. Case management following. Antibiotics have been discontinued as urine cultures were negative. Patient will need cardiology and neurology follow up arranged for the outpatient setting. Likely discharge on Tuesday. The impression and plan of care has been dictated by Nanette Leung, nurse practitioner as directed. MD Len I have performed a history and examination and MDM of this patient, discussed the same with the dictator, and agree with the dictator's assessment and plan as written ,documented as a scribe. Based on total visit time, I have performed more than 50% of the visit. Any additional findings or plans will be noted. Objective - Vital Signs Vital signs: Vital Signs Temp 97.8 F 03/19/22 13:02 Pulse 67 03/19/22 13:02 Resp 19 03/19/22 13:02 BP 119/68 03/19/22 13:02 Pulse Ox 97 03/19/22 13:02 FiO2 Intake & Output 03/18/22 03/19/22 03/19/22 18:59 06:59 18:59 Weight 68.039 kg Other: Voiding Method Toilet Toilet Toilet Bedside Commode Bedside Commode Bedside Commode Incontinent # Voids 3 1 2 # Bowel Movements 1 - Labs CBC & Chem 7: 03/17/22 06:06 03/19/22 05:13 Labs: Abnormal Lab Results - Last 24 Hours (Table) 03/19/22 Range/Units 05:13 Sodium 135 L (137-145) mmol/L BUN 22 H (7-17) mg/dL Microbiology - Last 24 Hours (Table) 03/14/22 17:33 Blood Culture - Preliminary Blood No Growth after 96 hours
[2022-03-19] MEDS: ATORVASTATIN 40 MG TAB PO SCH (20:09)
[2022-03-19] MEDS: MONTELUKAST 10 MG TAB PO SCH (20:10)
[2022-03-20] MEDS: LEVOTHYROXINE 25 MCG TAB PO SCH (05:54)
[2022-03-20] MEDS: CYANOCOBALAMIN 500 MCG TAB PO SCH (08:54)
[2022-03-20] MEDS: ASPIRIN 81 MG PO SCH (08:54)
[2022-03-20] MEDS: CHOLECALCIFEROL 25 MCG (1000 IU) TABLET PO SCH (08:55)
[2022-03-20] MEDS: FERROUS SULFATE 325 MG TAB PO SCH (08:55)
[2022-03-20] MEDS: TAMSULOSIN 0.4 MG CAP.ER.24H PO SCH (08:55)
[2022-03-20] MEDS: APIXABAN 5 MG TAB PO SCH ×2 (08:55→20:50)
[2022-03-20] MEDS: METOPROLOL TARTRATE 25 MG TAB PO SCH ×2 (08:55→20:50)
[2022-03-20] MEDS: FOLIC ACID 1 MG TAB PO SCH (08:55)
--- NOTE | 2022-03-20 13:35 | P.PN ---
Subjective Progress Note Date: 03/20/22 This is a 81 year old female who was recently admitted with increased confusion over the last few days and is being closely monitored. Concern for possible urinary tract infection, present on admission and was started on IV ceftriaxone. Neurology is consulted and undergoing neurological work up. MRI of the brain is ordered. @d echo as well. Patient is afebrile and no reports of chest pain or shortness of breath noted. 03/16/2022 Patient is seen today and appears fatigued. Patient continues on IV ceftriaxone and awaiting urine culture. Patient to have mri of the brain today. Patient with some urinary retention per nursing staff and ordered bladder scan and U/S of the renals and bladder. Patient is afebrile and denies any chest pain or shortness of breath. Patient is weak and will have PT evaluate. Consult to case management made for possible ECF. 03/17/2022 Patient is seen and evaluated and follow-up more awake although continues with confusion. Neurology following closely and patient has been evaluated by cardiology. No plans for TAL and okay to resume Eliquis of 5 mg twice daily. Will discontinue aspirin. Patient did have normal EEG and 2-D echo showing normal left ventricular systolic function with some aortic sclerosis without any stenosis or insufficiency. Patient will continue on statin and continue with neuro checks. Patient continues with weakness and will have physical therapy evaluate for possible ECF. Case management following and working to contact family members as patient lives at home and patient is unsafe to return home alone. Patient was taking anticoagulant for atrial fibrillation and unsure how compliant she has. Patient is currently afebrile and denies any chest pain or shortness of breath. Patient tolerating diet with no reports of nausea or vomiting noted. Patient is urinating and does not want indwelling Us catheter. Discussed with nursing staff about continuing to monitor for any signs of retention and will continue Flomax for now. Urine culture was negative. 03/18/2022 Patient is seen in follow up with neurology and cardiology following. Patient is maintained on anticoagulant in the form of Eliquis and will continue. P atient continues with weakness and some confusion and case management also following working on ECF. Patient's urinalysis was negative and will discontinue antibiotics. Labs were reviewed. Patient is afebrile denies any chest pain or shortness of breath. Patient is urinating although incontinent and continues to refuse Us is requiring 1. Recommend bladder scans as needed and will continue to monitor. Patient was started on Flomax and recommend continue. Recommend working with physical therapy daily. Case management discussing with family about possible guardianship and also her neighbor who checks on her often. Patient does live alone and there is no safe discharge plan as of yet. PT/OT therapy recommending subacute rehab. 03/19/2022 Patient seen today in follow up and more awake and alert and following commands. Patient is weak and plan is for ecf in [place] as family has provided choices to case management. Patient will also require insurance authorization and has been initiated. Patient is urinating with no reports of retention or dysuria noted. Patient is eating and tolerating diet. Cardiology and neurology have evaluated and is recommending to continue eliquis and statin and outpatient follow up. Patient is afebrile and denies chest pain or shortness of breath. Labs within normal limits. 03/20/2022 Patient evaluated today resting in bed, no acute events overnight and she is awake alert and following commands. Plan is for discharge to ECF which will most likely happen on tuesday. No update on insurance authorization today. Patient is eating and tolerating diet, urinating without difficulty, bowels moving. Denies any pain, shortness of breath. Patient remains afebrile. Cardiology and neurology have cleared patient for discharge. Blood pressure today 113/62. Review of Systems Constitutional: Denied any fatigue denied any fever. Cardio vascular: denied any chest pain, palpitations Gastrointestinal: denied any nausea, vomiting, diarrhea Pulmonary: Denied any shortness of breath cough Neurologic denied any new focal deficits All inpatient medications were reviewed and appropriate changes in these medications as dictated in the interval history and assessment and plan. All medications have been reviewed PHYSICAL EXAMINATION: GENERAL: The patient is alert , awake today, confustion slightly improved. Well developed, well nourished. elderly, obese HEENT: Pupils are round and equally reacting to light. EOMI. no scleral icterus. No conjunctival pallor. Normocephalic, atraumatic. No pharyngeal erythema. No thyromegaly. CARDIOVASCULAR: S1 and S2 muffled PULMONARY: diminished breath sounds bilaterally with no wheezing and some scattered rhonchi noted. ABDOMEN: soft. non tender on exam. Obese. non-distended, normal bowel sounds. No palpable organomegaly. MUSCULOSKELETAL: No joint swelling or deformity. EXTREMITIES: No cyanosis, clubbing, or pedal edema. NEUROLOGICAL: Gross neurological examination did not reveal any focal deficits. diffuse weakness SKIN: No rashes. 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 Neurology following and underwent neurological work up including MRI of the brain which is showing an acute ischemic stroke. Possibly cardioembolic and patient was evaluated with an echo by cardiology with no plans for TAL and recommending re suming Eliquis and discontinuing aspirin and continuing on statin. Neurology recommending aspirin 81 mg for 21 days. Patient continues with weakness and needs ECF for continued physical therapy and family has made choices for ecf and insurance auth has been submitted and awaiting approval and accepting facility. Case management following. Antibiotics have been discontinued as urine cultures were negative. Patient will need cardiology and neurology follow up arranged for the outpatient setting. Likely discharge on Tuesday. The impression and plan of care has been dictated by Noa Michel, Nurse Practitioner as directed. Dr. Tahir MD I have performed a history and physical examination and medical decision making of this patient, discussed the same with the dictator, and agree with the dictators assessment and plan as written, documented as a scribe. Based on total visit time, I have performed more than 50% of this visit. Objective - Vital Signs Vital signs: Vital Signs Temp 97.4 F L 03/20/22 05:00 Pulse 53 L 03/20/22 05:00 Resp 16 03/20/22 05:00 BP 135/79 03/20/22 05:00 Pulse Ox 95 03/20/22 05:00 FiO2 Intake & Output 03/19/22 03/20/22 03/20/22 18:59 06:59 18:59 Weight 68.039 kg Other: Voiding Method Toilet Toilet Bedside Commode Incontinent # Voids 2 2 1 - Labs CBC & Chem 7: 03/17/22 06:06 03/19/22 05:13 Labs: Microbiology - Last 24 Hours (Table) 03/14/22 17:33 Blood Culture - Preliminary Blood No Growth after 120 hours Assessment and Plan Time with Patient: Less than 30
[2022-03-20] MEDS: MONTELUKAST 10 MG TAB PO SCH (20:50)
[2022-03-20] MEDS: ATORVASTATIN 40 MG TAB PO SCH (20:50)
[2022-03-21] MEDS: LEVOTHYROXINE 25 MCG TAB PO SCH (05:18)
[2022-03-21] MEDS: TAMSULOSIN 0.4 MG CAP.ER.24H PO SCH (07:10)
[2022-03-21] MEDS: APIXABAN 5 MG TAB PO SCH ×2 (07:10→20:45)
[2022-03-21] MEDS: ASPIRIN 81 MG PO SCH (07:10)
[2022-03-21] MEDS: allopurinoL 300 MG TAB PO SCH (07:10)
[2022-03-21] MEDS: CHOLECALCIFEROL 25 MCG (1000 IU) TABLET PO SCH (07:10)
[2022-03-21] MEDS: FOLIC ACID 1 MG TAB PO SCH (07:10)
[2022-03-21] MEDS: CYANOCOBALAMIN 500 MCG TAB PO SCH (07:11)
[2022-03-21] MEDS: METOPROLOL TARTRATE 25 MG TAB PO SCH ×2 (07:11→20:46)
[2022-03-21] MEDS: FERROUS SULFATE 325 MG TAB PO SCH (07:11)
[2022-03-21 11:49] LABS: African American GFR (CKD) 44.4 (60.0-200.0); Anion Gap 14.5 mmol/L (10.00-18.00); BUN/Creat Ratio 20.23 Ratio (12.00-20.00); Blood Urea Nitrogen 26.7 mg/dL (9.0-27.0); Calcium 9.4 mg/dL (8.7-10.3); Carbon Dioxide 20.1 mmol/L (20.0-27.5); Non-African American GFR(CKD) 38.3 (60.0-200.0); Potassium 4.4 mmol/L (3.5-5.5)
--- NOTE | 2022-03-21 13:58 | P.PN ---
Subjective Progress Note Date: 03/21/22 This is a 81 year old female who was recently admitted with increased confusion over the last few days and is being closely monitored. Concern for possible urinary tract infection, present on admission and was started on IV ceftriaxone. Neurology is consulted and undergoing neurological work up. MRI of the brain is ordered. @d echo as well. Patient is afebrile and no reports of chest pain or shortness of breath noted. 03/16/2022 Patient is seen today and appears fatigued. Patient continues on IV ceftriaxone and awaiting urine culture. Patient to have mri of the brain today. Patient with some urinary retention per nursing staff and ordered bladder scan and U/S of the renals and bladder. Patient is afebrile and denies any chest pain or shortness of breath. Patient is weak and will have PT evaluate. Consult to case management made for possible ECF. 03/17/2022 Patient is seen and evaluated and follow-up more awake although continues with confusion. Neurology following closely and patient has been evaluated by cardiology. No plans for TAL and okay to resume Eliquis of 5 mg twice daily. Will discontinue aspirin. Patient did have normal EEG and 2-D echo showing normal left ventricular systolic function with some aortic sclerosis without any stenosis or insufficiency. Patient will continue on statin and continue with neuro checks. Patient continues with weakness and will have physical therapy evaluate for possible ECF. Case management following and working to contact family members as patient lives at home and patient is unsafe to return home alone. Patient was taking anticoagulant for atrial fibrillation and unsure how compliant she has. Patient is currently afebrile and denies any chest pain or shortness of breath. Patient tolerating diet with no reports of nausea or vomiting noted. Patient is urinating and does not want indwelling Us catheter. Discussed with nursing staff about continuing to monitor for any signs of retention and will continue Flomax for now. Urine culture was negative. 03/18/2022 Patient is seen in follow up with neurology and cardiology following. Patient is maintained on anticoagulant in the form of Eliquis and will continue. P atient continues with weakness and some confusion and case management also following working on ECF. Patient's urinalysis was negative and will discontinue antibiotics. Labs were reviewed. Patient is afebrile denies any chest pain or shortness of breath. Patient is urinating although incontinent and continues to refuse Us is requiring 1. Recommend bladder scans as needed and will continue to monitor. Patient was started on Flomax and recommend continue. Recommend working with physical therapy daily. Case management discussing with family about possible guardianship and also her neighbor who checks on her often. Patient does live alone and there is no safe discharge plan as of yet. PT/OT therapy recommending subacute rehab. 03/19/2022 Patient seen today in follow up and more awake and alert and following commands. Patient is weak and plan is for ecf in [place] as family has provided choices to case management. Patient will also require insurance authorization and has been initiated. Patient is urinating with no reports of retention or dysuria noted. Patient is eating and tolerating diet. Cardiology and neurology have evaluated and is recommending to continue eliquis and statin and outpatient follow up. Patient is afebrile and denies chest pain or shortness of breath. Labs within normal limits. 03/20/2022 Patient evaluated today resting in bed, no acute events overnight and she is awake alert and following commands. Plan is for discharge to ECF which will most likely happen on tuesday. No update on insurance authorization today. Patient is eating and tolerating diet, urinating without difficulty, bowels moving. Denies any pain, shortness of breath. Patient remains afebrile. Cardiology and neurology have cleared patient for discharge. Blood pressure today 113/62. 03/21/2022 Patient is resting in bed today. Mentation is stable, she is alert and following commands. Plan remains the same for discharge to ECF if auth has been obtained most likely tuesday. No acute events overnight. No difficulty with urination, oral intake adequate she is eating 75 to 100% of meals. Labs today showing a sodium of 138, potassium 4.4, BUN 26.7, creatinine 1.3. She was afebrile, heart rate in the 53, blood pressure 117/74, 95% room air. Review of Systems Constitutional: Denied any fatigue denied any fever. Cardio vascular: denied any chest pain, palpitations Gastrointestinal: denied any nausea, vomiting, diarrhea Pulmonary: Denied any shortness of breath cough Neurologic denied any new focal deficits All inpatient medications were reviewed and appropriate changes in these medications as dictated in the interval history and assessment and plan. All medications have been reviewed PHYSICAL EXAMINATION: GENERAL: The patient is alert , awake today, confustion slightly improved. Well developed, well nourished. elderly, obese HEENT: Pupils are round and equally reacting to light. EOMI. no scleral icterus. No conjunctival pallor. Normocephalic, atraumatic. No pharyngeal erythema. No thyromegaly. CARDIOVASCULAR: S1 and S2 muffled PULMONARY: diminished breath sounds bilaterally with no wheezing and some scattered rhonchi noted. ABDOMEN: soft. non tender on exam. Obese. non-distended, normal bowel sounds. No palpable organomegaly. MUSCULOSKELETAL: No joint swelling or deformity. EXTREMITIES: No cyanosis, clubbing, or pedal edema. NEUROLOGICAL: Gross neurological examination did not reveal any focal deficits. diffuse weakness SKIN: No rashes. 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 Neurology following and underwent neurological work up including MRI of the brain which is showing an acute ischemic stroke. Possibly cardioembolic and patient was evaluated with an echo by cardiology with no plans for TAL and recommending resuming Eliquis and discontinuing aspirin and continuing on statin. Neurology recommending aspirin 81 mg for 21 days. Patient continues with weakness and needs ECF for continued physical therapy and family has made choices for ecf an d insurance auth has been submitted and awaiting approval and accepting facility. Case management following. Antibiotics have been discontinued as urine cultures were negative. Patient will need cardiology and neurology follow up arranged for the outpatient setting. Likely discharge on Tuesday. No acute events overnight. The impression and plan of care has been dictated by Noa Michel, Nurse Practitioner as directed. Dr. Tahir MD I have performed a history and physical examination and medical decision making of this patient, discussed the same with the dictator, and agree with the dictators assessment and plan as written, documented as a scribe. Based on total visit time, I have performed more than 50% of this visit. Objective - Vital Signs Vital signs: Vital Signs Temp 98 F 03/21/22 05:00 Pulse 60 03/21/22 08:45 Resp 16 03/21/22 08:45 BP 138/71 03/21/22 05:00 Pulse Ox 97 03/21/22 05:00 FiO2 Intake & Output 03/20/22 03/21/22 03/21/22 18:59 06:59 18:59 Intake Total 360 Balance 360 Intake: Oral 360 Other: Voiding Method Toilet Toilet Toilet # Voids 3 3 1 # Bowel Movements 1 - Labs CBC & Chem 7: 03/17/22 06:06 03/21/22 06:00 Labs: Microbiology - Last 24 Hours (Table) 03/14/22 17:33 Blood Culture - Final Blood No Growth after 144 hours Assessment and Plan Time with Patient: Less than 30
[2022-03-21] MEDS: ATORVASTATIN 40 MG TAB PO SCH (20:45)
[2022-03-21] MEDS: MONTELUKAST 10 MG TAB PO SCH (20:46)
[2022-03-22] MEDS: LEVOTHYROXINE 25 MCG TAB PO SCH (05:10)
--- NOTE | 2022-03-22 07:47 | CDI ---
Documentation Clarification Form Date: 03/22/2022 07:29:04 AM From: Zee Javed RN CCDS Admit Date: 03/14/2022 02:55:00 PM Patient Name: Radhika Duncan Visit Number: [id number] Discharge Date: ATTENTION: The Clinical Documentation Specialists (CDI) and [facility] Coding Staff appreciate your assistance in clarifying documentation. Please respond to the clarification below the line at the bottom and electronically sign. The CDI & [facility] Coding staff will review the response and follow-up if needed. Please note: Queries are made part of the Legal Health Record. If you have any questions, please contact the author of this message via ITS. Dr. Tod Esqueda Your patient has the documented symptom of Change in Mental Status 03/14,H&P. Additional clarification regarding the etiology/cause of this symptom is requested. History/Risk Factors: 81-year-old female presents to the ED with increased confusion for the last two to three days. Medical History: Atrial Fibrillation, Asthma and COPD. Clinical Indicators: 03/16, Medicine progress note: Change in mental status and weakness, possibly secondary to acute stroke as noted on MRI. EEGAD: 03/16 Normal routine EEG. There is no focal slowing, epileptiform discharge or seizure on the EEG. Brain MRI w/con: 03/16 correlate for possible embolic phenomenon 03/16, Neurology progress note: Altered mental status encephalopathy of unknown etiology . Treatment: 03/14 Eliquis 5mg PO BID, EEGAD and Neuro consult. Please clarify the etiology of the symptom of Altered Mental Status: [ ] Metabolic Encephalopathy due to Acute Stroke. [ ] Other condition (please specify) [ ] Unable to determine -->Unable to determine (Template Last Revised: October 2020) MTDD
[2022-03-22] MEDS: ASPIRIN 81 MG PO SCH (08:48)
[2022-03-22] MEDS: FERROUS SULFATE 325 MG TAB PO SCH (08:48)
[2022-03-22] MEDS: FOLIC ACID 1 MG TAB PO SCH (08:48)
[2022-03-22] MEDS: CHOLECALCIFEROL 25 MCG (1000 IU) TABLET PO SCH (08:48)
[2022-03-22] MEDS: CYANOCOBALAMIN 500 MCG TAB PO SCH (08:48)
[2022-03-22] MEDS: TAMSULOSIN 0.4 MG CAP.ER.24H PO SCH (08:48)
[2022-03-22] MEDS: METOPROLOL TARTRATE 25 MG TAB PO SCH ×2 (08:48→20:58)
[2022-03-22] MEDS: APIXABAN 5 MG TAB PO SCH ×2 (08:48→20:58)
--- NOTE | 2022-03-22 14:10 | P.PN ---
Subjective Progress Note Date: 03/22/22 This is a 81 year old female who was recently admitted with increased confusion over the last few days and is being closely monitored. Concern for possible urinary tract infection, present on admission and was started on IV ceftriaxone. Neurology is consulted and undergoing neurological work up. MRI of the brain is ordered. @d echo as well. Patient is afebrile and no reports of chest pain or shortness of breath noted. 03/16/2022 Patient is seen today and appears fatigued. Patient continues on IV ceftriaxone and awaiting urine culture. Patient to have mri of the brain today. Patient with some urinary retention per nursing staff and ordered bladder scan and U/S of the renals and bladder. Patient is afebrile and denies any chest pain or shortness of breath. Patient is weak and will have PT evaluate. Consult to case management made for possible ECF. 03/17/2022 Patient is seen and evaluated and follow-up more awake although continues with confusion. Neurology following closely and patient has been evaluated by cardiology. No plans for TAL and okay to resume Eliquis of 5 mg twice daily. Will discontinue aspirin. Patient did have normal EEG and 2-D echo showing normal left ventricular systolic function with some aortic sclerosis without any stenosis or insufficiency. Patient will continue on statin and continue with neuro checks. Patient continues with weakness and will have physical therapy evaluate for possible ECF. Case management following and working to contact family members as patient lives at home and patient is unsafe to return home alone. Patient was taking anticoagulant for atrial fibrillation and unsure how compliant she has. Patient is currently afebrile and denies any chest pain or shortness of breath. Patient tolerating diet with no reports of nausea or vomiting noted. Patient is urinating and does not want indwelling Us catheter. Discussed with nursing staff about continuing to monitor for any signs of retention and will continue Flomax for now. Urine culture was negative. 03/18/2022 Patient is seen in follow up with neurology and cardiology following. Patient is maintained on anticoagulant in the form of Eliquis and will continue. Patient continues with weakness and some confusion and case management also following working on ECF. Patient's urinalysis was negative and will discontinue antibiotics. Labs were reviewed. Patient is afebrile denies any chest pain or shortness of breath. Patient is urinating although incontinent and continues to refuse Us is requiring 1. Recommend bladder scans as needed and will continue to monitor. Patient was started on Flomax and recommend continue. Recommend working with physical therapy daily. Case management discussing with family about possible guardianship and also her neighbor who checks on her often. Patient does live alone and there is no safe discharge plan as of yet. PT/OT therapy recommending subacute rehab. 03/19/2022 Patient seen today in follow up and more awake and alert and following commands. Patient is weak and plan is for ecf in [place] as family has provided choices to case management. Patient will also require insurance authorization and has been initiated. Patient is urinating with no reports of retention or dysuria noted. Patient is eating and tolerating diet. Cardiology and neurology have evaluated and is recommending to continue eliquis and statin and outpatient follow up. Patient is afebrile and denies chest pain or shortness of breath. Labs within normal limits. 03/20/2022 Patient evaluated today resting in bed, no acute events overnight and she is awake alert and following commands. Plan is for discharge to ECF which will most likely happen on tuesday. No update on insurance authorization today. Patient is eating and tolerating diet, urinating without difficulty, bowels moving. Denies any pain, shortness of breath. Patient remains afebrile. Cardiology and neurology have cleared patient for discharge. Blood pressure today 113/62. 03/21/2022 Patient is resting in bed today. Mentation is stable, she is alert and following commands. Plan remains the same for discharge to ECF if auth has been obtained most likely tuesday. No acute events overnight. No difficulty with urination, oral intake adequate she is eating 75 to 100% of meals. Labs today showing a sodium of 138, potassium 4.4, BUN 26.7, creatinine 1.3. She was afebrile, heart rate in the 53, blood pressure 117/74, 95% room air. 03/22/2022 Patient is seen in follow-up today and is stable with no acute events noted overnight. Patient has been working with physical therapy and case management working on accepting facility and insurance authorization. Currently no accepting facilities in the [facility] and family is now agreeable to other facilities and multiple other referrals were sent and awaiting an accepting facility along with insurance authorization. Patient is afebrile denies any chest pain or shortness of breath. Patient is tolerating diet with no reports of nausea or vomiting noted. Patient continues on Eliquis along with baby a spirin and will continue aspirin for a total of 21 days. Neurology following as needed. Review of Systems Constitutional: Denied any fatigue denied any fever. Cardio vascular: denied any chest pain, palpitations Gastrointestinal: denied any nausea, vomiting, diarrhea Pulmonary: Denied any shortness of breath cough Neurologic denied any new focal deficits All inpatient medications were reviewed and appropriate changes in these medications as dictated in the interval history and assessment and plan. PHYSICAL EXAMINATION: GENERAL: The patient is alert , awake today, improved confused, Well developed, well nourished. elderly, obese HEENT: Pupils are round and equally reacting to light. EOMI. no scleral icterus. No conjunctival pallor. Normocephalic, atraumatic. No pharyngeal erythema. No thyromegaly. CARDIOVASCULAR: S1 and S2 muffled PULMONARY: diminished breath sounds bilaterally with no wheezing and some scattered rhonchi noted. ABDOMEN: soft. non tender on exam. Obese. non-distended, normal bowel sounds. No palpable organomegaly. MUSCULOSKELETAL: No joint swelling or deformity. EXTREMITIES: No cyanosis, clubbing, or pedal edema. NEUROLOGICAL: Gross neurological examination did not reveal any focal deficits. diffuse weakness SKIN: No rashes. 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 Neurology following and underwent neurological work up including MRI of the brain which is showing an acute ischemic stroke. Possibly cardioembolic and patient was evaluated with an echo by cardiology with no plans for TAL and recommending resuming Eliquis and discontinuing aspirin and continuing on statin. Neurology recommending aspirin 81 mg for 21 days. Patient continues with weakness and needs ECF for continued physical therapy and no accepting facilities noted in [place] and family has made other choices for ecf and has been submitted by case management and insurance auth will be needed as well. Case management following. Patient has completed antibiotic course for possible UTI that was present on admission and not requiring any further antibiotics. WBC within normal limits patient remains afebrile. Denies any pain or difficulties in urinating. Patient will need cardiology and neurology follow up arranged for the outpatient setting. Awaiting accepting facility. The impression and plan of care has been dictated by Nanette Leung, nurse practitioner as directed. MD Len I have performed a history and examination and MDM of this patient, discussed the same with the dictator, and agree with the dictator's assessment and plan as written ,documented as a scribe. Based on total visit time, I have performed more than 50% of the visit. Any additional findings or plans will be noted. Objective - Vital Signs Vital signs: Vital Signs Temp 97.9 F 03/22/22 05:00 Pulse 57 L 03/22/22 05:00 Resp 16 03/22/22 05:00 BP 147/80 03/22/22 05:00 Pulse Ox 97 03/22/22 05:00 FiO2 Intake & Output 03/21/22 03/22/22 03/22/22 18:59 06:59 18:59 Intake Total 240 Balance 240 Intake: Oral 240 Other: Voiding Method Toilet Toilet # Voids 4 3 1 # Bowel Movements 1 - Labs CBC & Chem 7: 03/17/22 06:06 03/21/22 06:00 Labs: Abnormal Lab Results - Last 24 Hours (Table) 03/21/22 Range/Units 06:00 Est GFR (CKD-EPI)AfAm 44.4 L (60.0-200.0) Est GFR (CKD-EPI)NonAf 38.3 L (60.0-200.0) BUN/Creatinine Ratio 20.23 H (12.00-20.00) Ratio
[2022-03-22] MEDS: ATORVASTATIN 40 MG TAB PO SCH (20:58)
[2022-03-22] MEDS: MONTELUKAST 10 MG TAB PO SCH (20:58)
[2022-03-23] MEDS: LEVOTHYROXINE 25 MCG TAB PO SCH (05:29)
[2022-03-23] MEDS: TAMSULOSIN 0.4 MG CAP.ER.24H PO SCH (08:28)
[2022-03-23] MEDS: APIXABAN 5 MG TAB PO SCH (08:28)
[2022-03-23] MEDS: ASPIRIN 81 MG PO SCH (08:28)
[2022-03-23] MEDS: FOLIC ACID 1 MG TAB PO SCH (08:28)
[2022-03-23] MEDS: CHOLECALCIFEROL 25 MCG (1000 IU) TABLET PO SCH (08:28)
[2022-03-23] MEDS: FERROUS SULFATE 325 MG TAB PO SCH (08:28)
[2022-03-23] MEDS: METOPROLOL TARTRATE 25 MG TAB PO SCH (08:28)
[2022-03-23] MEDS: CYANOCOBALAMIN 500 MCG TAB PO SCH (08:28)
[2022-03-23] MEDS: allopurinoL 300 MG TAB PO SCH (08:29)
--- NOTE | 2022-03-23 10:54 | P.CONS ---
History of Present Illness - Chief Complaint Gait disturbance - History of Present Illness I had the opportunity to see patient for inpatient rehab consultation with regard to gait disturbance. Patient admitted March 14 confusion of [address] days[address] Chakraborty. Seen by neurology, Dr. Tod Esqueda who initially diagnosed encephalopathy but is more recently updated to bilateral frontal stroke. Seen by cardiology for known atrial fibrillation. Laboratories chest x-ray cardiomegaly and mild congestion. Head CT and brain MRI both with white matter change. Records reviewed by neurologist. Carotid Doppler done. Renal ultrasound negative. Has started therapies. PT reports modified independent supervision for bed mobility, transfer, gait 250 feet with roller walker. OT reports independent for feeding, supervision for grooming and upper dressing, toileting and toilet transfers. Minimal assistance for lower dressing and bathing. Previous functional history as elicited patient: 81-year-old right-handed white female who is lives in a first-floor apartment alone. Has neighbor García who helps with cooking, laundry, driving. Patient describes independent with standing shower and gait without device previously. PCP Dr. Hawley. Denies tobacco or alcohol. Review of Systems Review of systems: ENT: Denies sneezes or discharge. Eyes: Denies discharge or photophobia. Cardiac: Denies chest pain or palpitation. Pulmonary: Denies cough or shortness of breath. Breast: Denies discharge or lumps. Gastrointestinal: Denies nausea, emesis, constipation, diarrhea. Genitourinary: Denies discharge or frequency. Musculoskeletal: Denies muscle or bone aches. Neurologic: Resolves confusion. Endocrine: Denies shakes or sweats. Oncology: Denies cancers. Dermatologic: Denies rash, itching, pruritus. ALLERGY/immunology: Denies sneezes, rashes. Past Medical History Past Medical History: Atrial Fibrillation, Asthma, COPD, Eye Disorder, GERD/Reflux, Hypertension, Rheumatoid Arthritis (RA), Thyroid Disorder Additional Past Medical History / Comment(s): Pt recently admitted to [facility] on with UTI/R side pneumonia with sepsis, mita r groin. Other hx: Macular degeneration bilaterally-legally blind, rheumatoid arthritis in multple joints, osteoporosis, migraines, hypothyroid, urinary incontinence at times. History of Any Multi-Drug Resistant Organisms: ESBL Year Discovered:: 06/05/18 MDRO Source:: esbl urine Past Surgical History: Appendectomy, Cholecystectomy, Hysterectomy, Orthopedic Surgery, Tonsillectomy Additional Past Surgical History / Comment(s): D&C, colonoscopy, left knee scope, right arm ORIF. Past Anesthesia/Blood Transfusion Reactions: Motion Sickness Additional Past Anesthesia/Blood Transfusion Reaction / Comm: severe motion sickness Past Psychological History: No Psychological Hx Reported Additional Psychological History / Comment(s): Pt resides with her spouse of 48yrs. She just got a walker. She is legally blind, no longer drives, her spouse drives and manages her medications. She has contact with a great manuelito that lives next door. She is retired, worked most recently at [employer]. She has oxygen that she wears prn at 2L/NC. No recent travel. No experience. Smoking Status: Former smoker Past Alcohol Use History: None Reported Additional Past Alcohol Use History / Comment(s): patient was a smoker of a half a pack per day for 40 years and quit when she was 60 years of age. No alcohol use. Past Drug Use History: None Reported - Past Family History Mother Additional Family Medical History / Comment(s): Pt states mother had severe migraines and at the age of 43yrs while hospitalized with severe migraine but does not know cause of . Father Family Medical History: Myocardial Infarction (MD) Additional Family Medical History / Comment(s): Father of a MD at the age of 54yrs. Family Additional Family Medical History / Comment(s): Patient denies any history of coronary artery disease Medications and Allergies Home Medications Medication Instructions Recorded Confirmed Type Folic Acid 1 mg PO DAILY 06/05/18 03/14/22 History Montelukast [Singulair] 10 mg PO HS 06/05/18 03/14/22 History Apixaban [Eliquis] 5 mg PO BID tab 06/10/18 03/14/22 Rx Fremanezumab-Vfrm [Ajovy Syringe] 225 mg SQ Q30D 06/03/19 03/14/22 History Albuterol Inhaler [Ventolin Hfa 2 puff INHALATION RT-QID PRN 03/14/22 03/14/22 History Inhaler] Cholecalciferol [Vitamin D3 (25 50 mcg PO DAILY 03/14/22 03/14/22 History Mcg = 1000 Iu)] Doxycycline Hyclate 100 mg PO BID 03/14/22 03/14/22 History Ferrous Sulfate [Feosol] 325 mg PO DAILY 03/14/22 03/14/22 History Levothyroxine Sodium [Synthroid] 25 mcg PO DAILY 03/14/22 03/14/22 History allopurinoL 300 mg PO Q48H 03/14/22 03/14/22 History lisinopriL [Zestril] 20 mg PO DAILY 03/14/22 03/14/22 History Allergies Allergy/AdvReac Type Severity Reaction Status Date / Time adhesive tape Allergy Unknown Verified 03/14/22 15:33 ciprofloxacin [From Cipro] Allergy Unknown Verified 03/14/22 15:33 epinephrine Allergy Unknown Verified 03/14/22 15:33 latex Allergy Rash/Hives Verified 03/14/22 15:33 Penicillins Allergy Unknown Verified 03/14/22 15:33 povidone-iodine Allergy Unknown Verified 03/14/22 15:33 [From Betadine] soap [From Betadine] Allergy Unknown Verified 03/14/22 15:33 Sulfa (Sulfonamide Allergy Unknown Verified 03/14/22 15:33 Antibiotics) Tetanus Vaccines and Toxoid Allergy Unknown Verified 03/14/22 15:33 amitriptyline [From Elavil] AdvReac Confusion Verified 03/14/22 15:33 Physical Exam Vitals: Vital Signs Temp Pulse Resp BP Pulse Ox 03/23/22 05:00 97.6 F 67 16 93/57 95 03/22/22 20:11 98.0 F 65 18 108/55 97 03/22/22 20:00 65 18 03/22/22 11:05 98.4 F 62 16 113/59 97 Intake and Output 03/22/22 03/23/22 03/23/22 22:59 06:59 14:59 Intake Total 120 240 Balance 120 240 Intake: Oral 120 240 Other: Voiding Method Toilet Toilet # Voids 1 4 Skin: Atrophic, intact. General: Medium build and comfortable appearance. Head: Normocephalic, atraumatic. Eyes: Symmetric. Pupils equal round. Ears: Symmetric. Hearing within normal limits. Mouth: Clear. Neck: Supple. Carotid without bruit. Cardiac: Regular rate and rhythm. Lungs: Clear anteriorly and posteriorly. Abdomen: Soft active nontender. Extremities: Normal tone. Neurological: Mental status: Alert, cooperative, pleasant. Cranial nerves: Symmetric facial tone and trapezius. Motor: Normal isolation all 4 limbs. Sensation: Intact throughout. DTRs: Symmetric and equal throughout. Mobility: Supervision with functional mobility per PT. Results CBC & Chem 7: 03/17/22 06:06 03/21/22 06:00 Assessment and Plan (1) Altered mental status Current Visit: Yes Status: Acute Code(s): R41.82 - ALTERED MENTAL STATUS, UNSPECIFIED SNOMED Code(s): 161398164 (2) COPD with hypoxia Current Visit: No Status: Acute Code(s): J44.9 - CHRONIC OBSTRUCTIVE PULMONARY DISEASE, UNSPECIFIED; R09.02 - HYPOXEMIA SNOMED Code(s): 42495749 Plan: Comments and plan: Patient with diagnosis of gait disturbance related to bifrontal embolic stroke per neurology. Patient does have a picture of resolve/resolving encephalopathy. Patient doing quite well in physical therapy and would not qualify for inpatient rehab per current PT notes as to good. OT documents only minimal assistance for lower dressing and bathing. An aide carotid be sent in for support services for this function.
[2022-03-23 11:33] VITALS: BP 116/72; PULSE 54; RESP 15; TEMP 98.4
--- NOTE | 2022-03-25 19:29 | P.DS ---
Providers Date of admission: 03/14/22 14:55 Expected date of discharge: 03/23/22 Attending physician: Garry Cummings MD Consults: 03/14/22 16:40 Consult Physician Routine Consulting Provider: Tod Esqueda Consult Reason/Comments: stroke? Do you want consulting provider notified?: Yes 03/16/22 13:02 Consult Physician Stat Consulting Provider: David Pedroza Consult Reason/Comments: cva, possibly embolic Do you want consulting provider notified?: Yes 03/23/22 08:17 Consult Physician Routine Consulting Provider: Mamadou Fraire Consult Reason/Comments: in pt rehab Do you want consulting provider notified?: Yes Primary care physician: Derki Hawley Hospital Course: Final diagnosis Change in mental status and weakness, possibly secondary to acute ischemic stroke over bilateral frontal parietal regions as noted on MRI Bilateral lesions of the periventricular and subcortical white matter Possible dementia versus hydrocephalus Increased white blood count, improved Ruled out urinary tract infection, cultures were negative Urinary retention, possibly secondary to UTI, resolved Atrial fibrillation history Hypertension Hyperlipidemia 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 Patient will follow-up with visiting physicians in the outpatient setting upon discharge. Patient is to continue with eliquis and aspirin for 10 more days and then may discontinue aspirin. Total time taken is greater than 35 minutes. Hospital course This is a 81-year-old female who was recently admitted with altered mental status and possible UTI and was being closely monitored. Neurology did a full work up including mri of the brain and was noted to have lesions secondary to ischemic stroke and initial thought was possibly embolic phenomenon and cardiology evaluated and recommended to continue with eliquis. Patient was also given aspirin for 21 days. Patient was weak initially and continued to improve slowly. PT evaluated and ok for home with home care. Concern for home safety as patient lives alone although has a niece and neighbors that help her with medications and meals and will be arranging for home care and more frequent supervision. Currently no reports of chest pain, shortness of breath, or palpitations. Patient is afebrile. No reports of nausea or vomiting and patient is tolerating diet. Patient will be discharged home today. Guarded prognosis. Physical exam: Gen: This is a 81 year old female alert and oriented x2-3. well developed, well nourished. HEENT: Head is atraumatic, normocephalic. Pupils equal, round. Sclerae is anicteric. NECK: Supple. No JVD. No lymphadenopathy. No thyromegaly. LUNGS: Clear to auscultation. No wheezes or rhonchi. No intercostal retractions. HEART: Regular rate and rhythm. No murmur. ABDOMEN: Soft. Bowel sounds are present. No masses. No tenderness. EXTREMITIES: No pedal edema. No calf tenderness. NEUROLOGICAL: Patient is awake, alert and oriented x3. no focal deficits noted. Please refer to medication reconciliation sheet for a list of medications. The impression and plan of care has been dictated by Nanette Leung, Nurse Practitioner as directed. Dr. Tahir MD I have performed a history and examination and MDM of this patient, discussed the same with the dictator, and agree with the dictator's assessment and plan as written ,documented as a scribe. Based on total visit time, I have performed more than 50% of the visit. Patient Condition at Discharge: Stable Plan - Discharge Summary Discharge Rx Participant: No New Discharge Prescriptions: New Atorvastatin [Lipitor] 40 mg PO HS 30 Days #30 tab Metoprolol Tartrate [Lopressor] 25 mg PO BID 30 Days #60 tab Cyanocobalamin [Vitamin B-12] 1,000 mcg PO DAILY 30 Days #60 tab Aspirin 81 mg PO DAILY 10 Days #10 tab Acetaminophen Tab [Tylenol] 650 mg PO Q6HR PRN tab PRN Reason: Mild Pain Or Fever > 100.5 Continue Montelukast [Singulair] 10 mg PO HS Folic Acid 1 mg PO DAILY Apixaban [Eliquis] 5 mg PO BID tab Fremanezumab-Vfrm [Ajovy Syringe] 225 mg SQ Q30D allopurinoL 300 mg PO Q48H Levothyroxine Sodium [Synthroid] 25 mcg PO DAILY Cholecalciferol [Vitamin D3 (25 Mcg = 1000 Iu)] 50 mcg PO DAILY Albuterol Inhaler [Ventolin Hfa Inhaler] 2 puff INHALATION RT-QID PRN PRN Reason: Shortness Of Breath Ferrous Sulfate [Iron (65 MG Elemental)] 325 mg PO DAILY Discontinued lisinopriL [Zestril] 20 mg PO DAILY Doxycycline Hyclate 100 mg PO BID Discharge Medication List Folic Acid 1 mg PO DAILY 06/05/18 [History] Montelukast [Singulair] 10 mg PO HS 06/05/18 [History] Apixaban [Eliquis] 5 mg PO BID tab 06/10/18 [Rx] Fremanezumab-Vfrm [Ajovy Syringe] 225 mg SQ Q30D 06/03/19 [History] Albuterol Inhaler [Ventolin Hfa Inhaler] 2 puff INHALATION RT-QID PRN 03/14/22 [History] Cholecalciferol [Vitamin D3 (25 Mcg = 1000 Iu)] 50 mcg PO DAILY 03/14/22 [History] Ferrous Sulfate [Iron (65 MG Elemental)] 325 mg PO DAILY 03/14/22 [History] Levothyroxine Sodium [Synthroid] 25 mcg PO DAILY 03/14/22 [History] allopurinoL 300 mg PO Q48H 03/14/22 [History] Acetaminophen Tab [Tylenol] 650 mg PO Q6HR PRN tab 03/23/22 [Rx] Aspirin 81 mg PO DAILY 10 Days #10 tab 03/23/22 [Rx] Atorvastatin [Lipitor] 40 mg PO HS 30 Days #30 tab 03/23/22 [Rx] Cyanocobalamin [Vitamin B-12] 1,000 mcg PO DAILY 30 Days #60 tab 03/23/22 [Rx] Metoprolol Tartrate [Lopressor] 25 mg PO BID 30 Days #60 tab 03/23/22 [Rx] Follow up Appointment(s)/Referral(s): [facility], [NON-STAFF] - 1 Week Care,[facility] [NON-STAFF] - 1 Week Derik Hawley MD [Primary Care Provider] - 1-2 days [facility] [NON-STAFF] - 1 Week Ambulatory/Diagnostic Orders: Comprehensive Metabolic Panel [LAB.AMB] Time Frame: 3 Days, Location: None Selected Activity/Diet/Wound Care/Special Instructions: Activity Limited until follow-up Patient is being arranged for palliative and Homecare outpatient Follow-up primary care provider and establish with visiting physicians Continue current medications and continue taking Eliquis 5 mg twice daily Continue aspirin 81 mg daily for the next 10 days and then discontinue Continue heart healthy diet Recommend repeat labs in the next few days Discharge/Stand Alone Forms: Who Do I Call?, Assisted Living Facilities, Commu nity Resources, Help In The Home, Outpatient Counseling, Personal Repair Service Dispatcher Discharge Disposition: HOME WITH HOME HEALTH SERVICES
== END 2022-03-23 15:50 | disposition home health service (06) | DRG 65 ==
LOC: EC 12:36 → 5NMEDONC 14:55
PROVIDERS: ADMIT Internal Medicine; ATTEND Internal Medicine
DX: I63.9 Cerebral infarction, unspecified (principal); G93.40 Encephalopathy, unspecified; H35.30 Unspecified macular degeneration; H54.8 Legal blindness, as defined in USA; I10 Essential (primary) hypertension; I48.0 Paroxysmal atrial fibrillation; I70.0 Atherosclerosis of aorta; J44.9 Chronic obstructive pulmonary disease, unspecified; F03.90 Unspecified dementia, unspecified severity, without behavioral disturbance, psychotic disturbance, mood disturbance, and anxiety; M06.9 Rheumatoid arthritis, unspecified; M81.0 Age-related osteoporosis without current pathological fracture; R26.9 Unspecified abnormalities of gait and mobility; R32 Unspecified urinary incontinence; R33.9 Retention of urine, unspecified; R09.02 Hypoxemia; I45.10 Unspecified right bundle-branch block; Z99.81 Dependence on supplemental oxygen; D72.829 Elevated white blood cell count, unspecified; E03.9 Hypothyroidism, unspecified; E78.5 Hyperlipidemia, unspecified; Z79.01 Long term (current) use of anticoagulants; Z79.890 Hormone replacement therapy; Z79.899 Other long term (current) drug therapy; Z82.49 Family history of ischemic heart disease and other diseases of the circulatory system; Z87.891 Personal history of nicotine dependence; Z87.440 Personal history of urinary (tract) infections; Z87.01 Personal history of pneumonia (recurrent); Z88.0 Allergy status to penicillin; Z88.2 Allergy status to sulfonamides; Z88.7 Allergy status to serum and vaccine; Z88.1 Allergy status to other antibiotic agents; Z91.040 Latex allergy status
CPT/HCPCS: 36415; 70450; 70551; 70552; 71046; 76770; 80048; 80053; 80061; 80306; 81003; 82140; 82607; 82746; 82803; 83735; 83880; 84439; 84443; 84484; 85025; 85610; 85730; 87040; 87086; 93005; 93306; 93880; 94760; 95816; 96360; 99285

== ENCOUNTER 2022-11-24 08:04 | Observation (INO) | payer MEDICARE ==
[2022-11-24] MEDS ORDERED: NITROGLYCERIN OINT 1 INCH/GM PACKET TOPICAL STA (08:23)
[2022-11-24 08:36] LABS: Basophils % (A) 0 %; Eosinophils # (A) 0.2 k/uL (0-0.7); Eosinophils % (A) 3 %; HCT 40.2 % (34.0-46.0); HGB 13.1 gm/dL (11.4-16.0); Lymphocytes # (A) 2.5 k/uL (1.0-4.8); Lymphocytes % (A) 29 %; MCH 32.5 pg (25.0-35.0); MCHC 32.7 g/dL (31.0-37.0); MCV 99.5 fL (80.0-100.0); Macrocytosis Slight; Mean Platelet Volume 7.9; Monocytes # (A) 0.7 k/uL (0-1.0); Monocytes % (A) 8 %; Neutrophils # (A) 5.1 k/uL (1.3-7.7); Neutrophils % (A) 58 %; Platelet Count 298 k/uL (150-450); RBC 4.04 m/uL (3.80-5.40); RDW 15.6 % (11.5-15.5); WBC 8.7 k/uL (3.8-10.6)
[2022-11-24 08:47] LABS: INR 0.9 (<1.2); Prothrombin Time 9.7 sec (9.0-12.0)
[2022-11-24 08:48] LABS: Partial Thromboplastin Time 26.4 sec (22.0-30.0)
[2022-11-24 08:55] LABS: Calcium 9.1 mg/dL (8.4-10.2); Total Bilirubin 0.6 mg/dL (0.2-1.3)
[2022-11-24 09:06] LABS: Magnesium 2.1 mg/dL (1.6-2.3)
--- NOTE | 2022-11-24 09:25 | XR ---
EXAMINATION TYPE: XR chest 2V DATE OF EXAM: 11/24/2022 COMPARISON: 03/14/2022 TECHNIQUE: PA and lateral views submitted. HISTORY: Chest pain FINDINGS: The lungs are clear and there is no pneumothorax, pleural effusion, or focal pneumonia. Heart size normal and no overt failure. Osseous structures demonstrate hypertrophic and degenerative changes of the spine. Coarsened interstitium with subsegmental changes in the right upper lobe similar to prior exam. IMPRESSION: 1. Correlate for pulmonary fibrosis similar to prior exam. Short-term follow-up CT chest recommended.
--- NOTE | 2022-11-24 10:30 | ED ---
Chest Pain HPI - General Chief Complaint: Chest Pain Stated Complaint: chest pain Time Seen by Provider: 11/24/22 08:05 Source: patient, EMS, RN notes reviewed Mode of arrival: EMS Limitations: no limitations - History of Present Illness Initial Comments: 81-year-old female presents emergency from via EMS chief complaint of chest pain. Patient did receive aspirin, nitro by EMS states the pain woke her up this morning sharp chest pain some discomfort in the left arm. Patient states nitro helped. She does have a history of A. fib. Patient states that she's had no prior cardiac stents denies fever chills cough or cold-like symptoms - Related Data Home Medications Medication Instructions Recorded Confirmed Folic Acid 1 mg PO DAILY 06/05/18 03/14/22 Montelukast [Singulair] 10 mg PO HS 06/05/18 03/14/22 Fremanezumab-Vfrm [Ajovy Syringe] 225 mg SQ Q30D 06/03/19 03/14/22 Albuterol Inhaler [Ventolin Hfa 2 puff INHALATION RT-QID PRN 03/14/22 03/14/22 Inhaler] Cholecalciferol [Vitamin D3 (25 50 mcg PO DAILY 03/14/22 03/14/22 Mcg = 1000 Iu)] Ferrous Sulfate [Iron (65 MG 325 mg PO DAILY 03/14/22 03/14/22 Elemental)] Levothyroxine Sodium [Synthroid] 25 mcg PO DAILY 03/14/22 03/14/22 allopurinoL 300 mg PO Q48H 03/14/22 03/14/22 Previous Rx's Medication Instructions Recorded Apixaban [Eliquis] 5 mg PO BID tab 06/10/18 Acetaminophen Tab [Tylenol] 650 mg PO Q6HR PRN tab 03/23/22 Aspirin 81 mg PO DAILY 10 Days #10 tab 03/23/22 Atorvastatin [Lipitor] 40 mg PO HS 30 Days #30 tab 03/23/22 Cyanocobalamin [Vitamin B-12] 1,000 mcg PO DAILY 30 Days #60 tab 03/23/22 Metoprolol Tartrate [Lopressor] 25 mg PO BID 30 Days #60 tab 03/23/22 Allergies Allergy/AdvReac Type Severity Reaction Status Date / Time adhesive tape Allergy Unknown Verified 11/24/22 08:17 ciprofloxacin [From Cipro] Allergy Unknown Verified 11/24/22 08:17 epinephrine Allergy Unknown Verified 11/24/22 08:17 latex Allergy Rash/Hives Verified 11/24/22 08:17 Penicillins Allergy Unknown Verified 11/24/22 08:17 povidone-iodine Allergy Unknown Verified 11/24/22 08:17 [From Betadine] soap [From Betadine] Allergy Unknown Verified 11/24/22 08:17 Sulfa (Sulfonamide Allergy Unknown Verified 11/24/22 08:17 Antibiotics) Tetanus Vaccines and Toxoid Allergy Unknown Verified 11/24/22 08:17 amitriptyline [From Elavil] AdvReac Confusion Verified 11/24/22 08:17 Review of Systems ROS Statement: Those systems with pertinent positive or pertinent negative responses have been documented in the HPI. ROS Other: All systems not noted in ROS Statement are negative. EKG Findings - EKG Comments: EKG Findings:: EKG performed at 8:13 sinus rhythm rate of 75 AK 158 QRS 114 QT/QTC 427/456 - EKG Results: EKG: interpreted by JOSEPH Past Medical History Past Medical History: Atrial Fibrillation, Asthma, COPD, Eye Disorder, GERD/Reflux, Hypertension, Rheumatoid Arthritis (RA), Thyroid Disorder Additional Past Medical History / Comment(s): Pt recently admitted to [facility] on 06/04/19 with UTI/R side pneumonia with sepsis, mita r groin. Other hx: Macular degeneration bilaterally-legally blind, rheumatoid arthritis in multple joints, osteoporosis, migraines, hypothyroid, urinary incontinence at times. History of Any Multi-Drug Resistant Organisms: ESBL Date of last positivie culture/infection: 06/05/18 MDRO Source:: esbl urine Past Surgical History: Appendectomy, Cholecystectomy, Hysterectomy, Orthopedic Surgery, Tonsillectomy Additional Past Surgical History / Comment(s): D&C, colonoscopy, left knee scope, right arm ORIF. Past Anesthesia/Blood Transfusion Reactions: Motion Sickness Additional Past Anesthesia/Blood Transfusion Reaction / Comment(s): severe motion sickness Past Psychological History: No Psychological Hx Reported Smoking Status: Former smoker Past Alcohol Use History: None Reported Past Drug Use History: None Reported - Past Family History Mother Additional Family Medical History / Comment(s): Pt states mother had severe migraines and at the age of 43yrs while hospitalized with severe migraine but does not know cause of . Father Family Medical History: Myocardial Infarction ([place]) Additional Family Medical History / Comment(s): Father of a [place] at the age of 54yrs. Family Additional Family Medical History / Comment(s): Patient denies any history of coronary artery disease General Exam Limitations: no limitations General appearance: alert, in no apparent distress Head exam: Present: atraumatic, normocephalic, normal inspection Eye exam: Present: normal appearance, PERRL, EOMI. Absent: scleral icterus, conjunctival injection, periorbital swelling ENT exam: Present: normal exam, normal oropharynx, mucous membranes moist Neck exam: Present: normal inspection, full ROM. Absent: tenderness, meningismus, lymphadenopathy Respiratory exam: Present: normal lung sounds bilaterally. Absent: respiratory distress, wheezes, rales, rhonchi, stridor Cardiovascular Exam: Present: regular rate, normal rhythm, normal heart sounds. Absent: systolic murmur, diastolic murmur, rubs, gallop, clicks GI/Abdominal exam: Present: soft, normal bowel sounds. Absent: distended, tenderness, guarding, rebound, rigid Neurological exam: Present: alert, oriented X3 Skin exam: Present: warm, dry, intact, normal color. Absent: rash Course Vital Signs 11/24/22 11/24/22 11/24/22 08:04 08:30 09:00 Temperature 98.3 F Pulse Rate 75 62 62 Respiratory 18 18 16 Rate Blood Pressure 164/86 164/86 186/79 O2 Sat by Pulse 97 96 96 Oximetry Chest Pain MDM - MDM Was pt. sent in by a medical professional or institution (, PA, PROCESSING TECHNICIAN, urgent care, hospital, or jail...) When possible be specific @ -No Did you speak to anyone other than the patient for history (EMS, parent, family, police, friend...)? What history was obtained from this source @ -EMS provided the hospital care, treatment and history Did you review nursing and triage notes (agree or disagree)? Why? @ -I reviewed and agree with nursing and triage notes Were old charts reviewed (outside hosp., previous admission, EMS record, old EKG, old radiological studies, urgent care reports/EKG's, jail records)? Report findings @ -No old charts were reviewed Differential Diagnosis (chest pain, altered mental status, abdominal pain women, abdominal pain men, vaginal bleeding, weakness, fever, dyspnea, syncope, headache, dizziness, GI bleed, back pain, seizure, CVA, palpatations, mental health, musculoskeletal)? @ -Differential Chest Pain: Stable Angina, Unstable Angina, STEMI, NSTEMI Aortic Dissection, Pneumothorax, Musculoskeletal, Esophageal Spasm GERD, Cholecystitis, Pancreatitis, Zoster, this is not meant to be an all-inclusive list. EKG interpreted by me (3pts min.). @ -As above X-rays interpreted by me (1pt min.). @ -Chest x-ray shows possible pulmonary fibrosis CT interpreted by me (1pt min.). @ -None done U/S interpreted by me (1pt. min.). @ -None done What testing was considered but not performed or refused? (CT, X-rays, U/S, labs)? Why? @ -None What meds were considered but not given or refused? Why? @ -None Did you discuss the management of the patient with other professionals (professionals i.e. , PA, PROCESSING TECHNICIAN, lab, RT, psych nurse, social services assistant, vat overhauler, teacher, small business banking officer, ed case manager)? Give summary @ -Dr. Gerard for admission with cardiology consult. Was smoking cessation discussed for >3mins.? @ -No Was critical care preformed (if so, how long)? @ -No Were there social determinants of health that impacted care today? How? (Homelessness, low income, unemployed, alcoholism, drug addiction, transportation, low edu. Level, literacy, decrease access to med. care, [place] [facility], rehab)? @ -No Was there de-escalation of care discussed even if they declined (Discuss DNR or withdrawal of care, Hospice)? DNR status @ -No What co-morbidities impacted this encounter? (DM, HTN, Smoking, COPD, CAD, Cancer, CVA, ARF, Chemo, Hep., AIDS, mental health diagnosis, sleep apnea, m orbid obesity)? @ -Hypertension Was patient admitted / discharged? Hospital course, mention meds given and route, prescriptions, significant lab abnormalities, going to OR and other pertinent info. @ -Admitted patient had relief of her chest pain after nitro first troponin is negative patient started on heparin. Patient be admitted for echocardiogram, cardiology evaluation. Undiagnosed new problem with uncertain prognosis? @ -No Drug Therapy requiring intensive monitoring for toxicity (Heparin, Nitro, Insulin, Cardizem)? @ -Heparin Were any procedures done? @ -No Diagnosis/symptom? @ -[Chest pain Acute, or Chronic, or Acute on Chronic? @ -Acute Uncomplicated (without systemic symptoms) or Complicated (systemic symptoms)? @ -Uncomplicated Side effects of treatment? @ -No Exacerbation, Progression, or Severe Exacerbation? @ -No Poses a threat to life or bodily function? How? (Chest pain, [place], [place], pneumonia, PE, COPD, DKA, ARF, appy, cholecystitis, CVA, Diverticulitis, Homicidal, Suicidal, threat to staff... and all critical care pts) @ -No Disposition Clinical Impression: Chest pain Disposition: ADMITTED IP TO THIS HOSP Condition: Fair Referrals: Rachell Watt MD [Primary Care Provider] - 1-2 days Time of Disposition: 10:30
[2022-11-24] MEDS ORDERED: HEPARIN SODIUM 1,000 UN/ML (10ML VL) IV ONE (10:31)
[2022-11-24] MEDS ORDERED: HEPARIN SODIUM 1,000 UN/ML (10ML VL) IV PRN (10:31)
[2022-11-24] MEDS ORDERED: NITROGLYCERIN SL TABS 0.4 MG TAB SUBLINGUAL PRN (10:31)
[2022-11-24] MEDS ORDERED: HEPARIN SOD,PORK IN 0.45% NACL 25,000 UNIT in 0.45% NACL 1 250ML.BAG IV SCH (10:45)
[2022-11-24] MEDS ORDERED: ALBUTEROL NEBULIZED 2.5 MG/3 ML INHALATION PRN (11:16)
[2022-11-24] MEDS ORDERED: MELATONIN 3 MG TABLET PO PRN (11:16)
[2022-11-24] MEDS ORDERED: NON FORMULARY DRUG (Ipratropium/Albuter 20-100mcg 120 PUFF Each) INHALATION SCH (12:00)
[2022-11-24] MEDS ORDERED: allopurinoL 300 MG TAB PO SCH (12:00)
[2022-11-24] MEDS: ALBUTEROL NEBULIZED 2.5 MG/3 ML INHALATION SCH ×3 (12:35→21:21)
[2022-11-24] MEDS: IPRATROPIUM 0.5 MG/2.5 ML NEBU INHALATION SCH ×3 (12:35→21:21)
--- NOTE | 2022-11-24 16:34 | CA ---
Transthoracic Echo Report Name: Radhika Duncan Age: 81 Gender: F : 1940 Exam Date: 11/24/2022 12:18 Exam Location: [facility] Ht (in): 60 Wt (lb): 147 Ordering Physician: Eduard Bryan Attending/Referring Phys: [id number], Randi Caustic Liquor Maker Anjel Castillo RDCS Procedure CPT: Indications: Chest Pain Cardiac Hx: Technical Quality: Fair Contrast 1: Total Dose (mL): Contrast 2: Total Dose (mL): MEASUREMENTS (Male / Female) Normal Values 2D ECHO LV Diastolic Diameter PLAX 4.2 cm 4.2 - 5.9 / 3.9 - 5.3 cm IVS Diastolic Thickness 1.5 cm 0.6 - 1.0 / 0.6 - 0.9 cm LVPW Diastolic Thickness 1.5 cm 0.6 - 1.0 / 0.6 - 0.9 cm LV Relative Wall Thickness 0.7 RV Internal Dim ED PLAX 1.9 cm LVOT Diameter 2.0 cm LA Volume 67.4 cm??? 18 - 58 / 22 - 52 cm??? M-MODE Aortic Root Diameter MM 2.5 cm AV Cusp Separation MM 1.3 cm DOPPLER AV Peak Velocity 142.5 cm/s AV Peak Gradient 8.1 mmHg AI Peak Velocity 383.8 cm/s AI Peak Gradient 58.9 mmHg AI Pressure Half Time 453.8 ms LVOT Peak Velocity 114.6 cm/s LVOT Peak Gradient 5.3 mmHg AV Area Cont Eq pk 2.5 cm??? MV Peak Velocity 142.6 cm/s MV Peak Gradient 8.1 mmHg MV Mean Velocity 71.1 cm/s MV Mean Gradient 2.5 mmHg MV Velocity Time Integral 33.2 cm MV Area PHT 3.1 cm??? Mitral E Point Velocity 114.4 cm/s Mitral A Point Velocity 92.3 cm/s Mitral E to A Ratio 1.2 MV Deceleration Time 236.7 ms TR Peak Velocity 185.3 cm/s TR Peak Gradient 13.7 mmHg Right Atrial Pressure 3.0 mmHg Pulmonary Artery Systolic Pressu 16.7 mmHg Right Ventricular Systolic Press 16.7 mmHg PV Peak Velocity 98.2 cm/s PV Peak Gradient 3.9 mmHg FINDINGS Left Ventricle Moderately increased septal wall thickness. Moderately increased posterior wall thickness. Left ventricular ejection fraction is estimated at 60-65%. Right Ventricle Normal right ventricular size. Normal right ventricular global systolic function. Right ventricular systolic pressure within normal limits. Right Atrium Normal right atrial size. Left Atrium Moderately increased left atrial volume. Mildly increased left atrial area. Mitral Valve Mitral annular calcification (posterior). No mitral regurgitation. No mitral stenosis. Aortic Valve Thickened non aortic cusp. Moderate aortic regurgitation. No aortic stenosis. Trileaflet aortic valve. Tricuspid Valve Structurally normal tricuspid valve. No tricuspid regurgitation. No tricuspid stenosis. Pulmonic Valve Mild pulmonic regurgitation. Pericardium Minimal pericardial effusion (normal variant). No pleural effusion. Aorta Normal size aortic root and proximal ascending aorta. CONCLUSIONS Normal LV function Aortic sclerosis with moderate aortic insufficiency Thickened mitral valve leaflets with mild MR Previewed by: Dr. David Pedroza MD (Electronically Signed) Final Date: 24 November 2022 16:33
[2022-11-24] MEDS: TOPIRAMATE 25 MG TAB PO SCH (20:27)
[2022-11-24] MEDS: APIXABAN 5 MG TAB PO SCH (20:27)
[2022-11-24] MEDS: METOPROLOL TARTRATE 25 MG TAB PO SCH (20:28)
[2022-11-24] MEDS ORDERED: MONTELUKAST 10 MG TAB PO SCH (21:00)
--- NOTE | 2022-11-24 22:52 | P.HPIM ---
History of Present Illness H&P Date: 11/24/22 Chief Complaint: Chest pain Patient is a 81-year-old female with a known history of atrial fibrillation on anticoagulation with Eliquis, hypertension, GERD, history of CVA/TIA, remote arthritis, hypothyroidism, legally blind and prior history of smoking presents to ER with complaints of chest pain. Patient states that he woke up in the morning with chest pain left retrosternal region, radiating to the left arm. Associate with mild shortness of breath. [place] like baby sitting on the chest. Was very nauseated. No diaphoresis. Patient called EMS. He was given a dose of aspirin and nitro which seemed to help her pain. Patient was brought to the hospital. Denies any complaints of fever or chills. No cough or sputum production. Denies any recent illnesses. No leg swelling. Chest x-ray showed correlate for pulmonary fibrosis similar to prior exam. Short-term follow-up CT chest is recommended. EKG showed sinus rhythm. Laboratory data showed WBC 8.7 hemoglobin 13.1 and platelets 298 sodium 138 potassium 5.0 chloride 108 bicarb is 23 BUN 21 creatinine 1.09 blood sugar 105 AST 48 ALT 27 alk phos 108 troponin x3 negative proBNP is 541 Review of Systems Constitutional: Patient denies any fever or chills . no Generalized weakness. Abdomen: Patient denied any nausea or vomiting or abd. pain Cardiovascular: Chest pain associated shortness of breath and nausea and no leg swelling. Respiratory: patient denied any cough . no sputum production. No shortness of breath Neurologic: Patient denied any numbness or tingling headache. Musculoskeletal: Patient denies any complaints of joint swelling or deformity. Skin: Negative Psychiatric: Negative Endocrine: No heat or cold intolerance. No recent weight gain. Genitourinary: No dysuria or hematuria. All other 14 point ROS negative except the above Past Medical History Past Medical History: Atrial Fibrillation, Asthma, COPD, CVA/TIA, Eye Disorder, GERD/Reflux, Hypertension, Rheumatoid Arthritis (RA), Thyroid Disorder Additional Past Medical History / Comment(s): Other hx: Macular degeneration bilaterally-legally blind, rheumatoid arthritis in multple joints, osteoporosis, migraines, hypothyroid, urinary incontinence at times. History of Any Multi-Drug Resistant Organisms: ESBL Date of last positivie culture/infection: 06/05/18 MDRO Source:: esbl urine Past Surgical History: Appendectomy, Cholecystectomy, Hysterectomy, Orthopedic Surgery, Tonsillectomy Additional Past Surgical History / Comment(s): D&C, colonoscopy, left knee scope, right arm ORIF. Past Anesthesia/Blood Transfusion Reactions: Motion Sickness Additional Past Anesthesia/Blood Transfusion Reaction / Comment(s): severe motion sickness Past Psychological History: No Psychological Hx Reported Additional Psychological History / Comment(s): She just got a walker. She is legally blind, no longer drives, her spouse drives and manages her medications. She has contact with a great manuelito that lives next door. She is retired, worked most recently at [employer]. No recent travel. No experience. Smoking Status: Former smoker Past Alcohol Use History: None Reported Additional Past Alcohol Use History / Comment(s): patient was a smoker of a half a pack per day for 40 years and quit when she was 60 years of age. No alcohol use. Past Drug Use History: None Reported - Past Family History Mother Additional Family Medical History / Comment(s): Pt states mother had severe migraines and at the age of 43yrs while hospitalized with severe migraine but does not know cause of . Father Family Medical History: Myocardial Infarction ([place]) Additional Family Medical History / Comment(s): Father of a [place] at the age of 54yrs. Family Additional Family Medical History / Comment(s): Patient denies any history of coronary artery disease Medications and Allergies Home Medications Medication Instructions Recorded Confirmed Type Folic Acid 1 mg PO DAILY 06/05/18 11/24/22 History Montelukast [Singulair] 10 mg PO HS 06/05/18 11/24/22 History Apixaban [Eliquis] 5 mg PO BID tab 06/10/18 11/24/22 Rx Fremanezumab-Vfrm [Ajovy Syringe] 225 mg SQ Q30D 06/03/19 11/24/22 History Albuterol Inhaler [Ventolin Hfa 2 puff INHALATION RT-QID PRN 03/14/22 11/24/22 History Inhaler] Cholecalciferol [Vitamin D3 (25 50 mcg PO DAILY 03/14/22 11/24/22 History Mcg = 1000 Iu)] Ferrous Sulfate [Iron (65 MG 325 mg PO DAILY 03/14/22 11/24/22 History Elemental)] Levothyroxine Sodium [Synthroid] 25 mcg PO DAILY 03/14/22 11/24/22 History allopurinoL 300 mg PO Q48H 03/14/22 11/24/22 History Aspirin 81 mg PO DAILY 10 Days #10 tab 03/23/22 11/24/22 Rx Cyanocobalamin [Vitamin B-12] 1,000 mcg PO DAILY 30 Days #60 tab 03/23/22 11/24/22 Rx Metoprolol Tartrate [Lopressor] 25 mg PO BID 30 Days #60 tab 03/23/22 11/24/22 Rx Doxycycline Hyclate 100 mg PO BID 11/24/22 11/24/22 History Escitalopram [Lexapro] 10 mg PO DAILY 11/24/22 11/24/22 History Ipratropium/Albuter 20-100Mcg 1 puff INHALATION RT-QID 11/24/22 11/24/22 History [Combivent Respimat 20-100Mcg Inhaler] Leflunomide [Arava] 10 mg PO DAILY 11/24/22 11/24/22 History Melatonin 3 mg PO HS PRN 11/24/22 11/24/22 History Omeprazole 40 mg PO DAILY 11/24/22 11/24/22 History Topiramate [Topamax] 50 mg PO BID 11/24/22 11/24/22 History Allergies Allergy/AdvReac Type Severity Reaction Status Date / Time adhesive tape Allergy Unknown Verified 11/24/22 10:47 ciprofloxacin [From Cipro] Allergy Unknown Verified 11/24/22 10:47 epinephrine Allergy Unknown Verified 11/24/22 10:47 latex Allergy Rash/Hives Verified 11/24/22 10:47 Penicillins Allergy Unknown Verified 11/24/22 10:47 povidone-iodine Allergy Unknown Verified 11/24/22 10:47 [From Betadine] soap [From Betadine] Allergy Unknown Verified 11/24/22 10:47 Sulfa (Sulfonamide Allergy Unknown Verified 11/24/22 10:47 Antibiotics) Tetanus Vaccines and Toxoid Allergy Unknown Verified 11/24/22 10:47 amitriptyline [From Elavil] AdvReac Confusion Verified 11/24/22 10:47 Physical Exam Vitals: Vital Signs Temp Pulse Pulse Resp BP BP Pulse Ox 11/24/22 12:00 57 L 16 156/71 96 11/24/22 11:00 67 20 139/71 96 11/24/22 10:30 65 20 157/68 96 11/24/22 10:00 68 18 162/68 96 11/24/22 09:30 64 18 163/73 94 L 11/24/22 09:00 62 16 186/79 96 11/24/22 08:30 62 18 164/86 96 11/24/22 08:04 98.3 F 75 18 164/86 97 Intake and Output 11/23/22 11/24/22 11/24/22 22:59 06:59 14:59 Other: Weight 66.678 kg PHYSICAL EXAMINATION: Patient is lying in the bed comfortably, no acute distress, awake alert and o riented.. HEENT: Normocephalic. Neck is supple. Pupils reactive. Nostrils clear. Oral cavity is moist. Neck reveals no JVD, carotid bruits, or thyromegaly. CHEST EXAMINATION: Trachea is central. Symmetrical expansion. No wheezing or rhonchi. Scattered crackles.. CARDIAC: Normal S1, S2 with no gallops. No murmurs ABDOMEN: Soft. Bowel sounds present. Nontender. No organomegaly. No abdominal bruits. Extremities: reveal no edema. No clubbing or cyanosis Neurologically awake, alert, oriented x3 with well-coordinated movements. No focal deficits noted Skin: No rash or skin lesions. Psychiatric: Coperative. Nonsuicidal, Musculoskeletal: No joint swelling or deformity. Normal range of motion. Results CBC & Chem 7: 11/24/22 08:25 11/24/22 08:25 Labs: Abnormal Lab Results - Last 24 Hours (Table) 11/24/22 11/24/22 Range/Units 08:25 08:25 RDW 15.6 H (11.5-15.5) % Chloride 108 H (98-107) mmol/L BUN 21 H (7-17) mg/dL Creatinine 1.09 H (0.52-1.04) mg/dL Glucose 105 H (74-99) mg/dL AST 48 H (14-36) U/L Thrombosis Risk Factor Assmnt - DVT/VTE Prophylaxis DVT/VTE Prophylaxis: Pharmacologic Prophylaxis ordered - Choose All That Apply Each Risk Factor Represents 3 Points: Age 75 years or older Thrombosis Risk Factor Assessment Total Risk Factor Score: 3 Thrombosis Risk Factor Assessment Level: Moderate Risk Assessment and Plan Assessment: Chest pain. Rule out ACS. Paroxysmal atrial fibrillation on anticoagulation with Eliquis Pulmonary fibrosis Hypothyroidism Hypertension GERD COPD Rheumatoid arthritis Macular degeneration and bilaterally legally blind. Prior history of smoking DVT prophylaxis patient is already on anticoagulation Plan: Patient will be continued on telemetry monitoring. Serial EKG and troponin x3. 2D echocardiogram was ordered. Continue with albuterol Atrovent inhalations. Continue the home medications and follow-up closely. Cardiology was consulted for evaluation. Time with Patient: Greater than 30
[2022-11-25] MEDS ORDERED: LEVOTHYROXINE 25 MCG TAB PO SCH (06:30)
[2022-11-25] MEDS ORDERED: PANTOPRAZOLE 40 MG TABLET PO SCH (07:30)
[2022-11-25] MEDS: APIXABAN 5 MG TAB PO SCH (07:47)
[2022-11-25] MEDS: TOPIRAMATE 25 MG TAB PO SCH (07:48)
[2022-11-25] MEDS: METOPROLOL TARTRATE 25 MG TAB PO SCH (07:48)
[2022-11-25 07:52] VITALS: BP 140/75; RESP 16; TEMP 97.9
[2022-11-25] MEDS: IPRATROPIUM 0.5 MG/2.5 ML NEBU INHALATION SCH ×3 (08:35→15:10)
[2022-11-25] MEDS: ALBUTEROL NEBULIZED 2.5 MG/3 ML INHALATION SCH ×3 (08:35→15:16)
[2022-11-25] MEDS ORDERED: ASPIRIN 325 MG TAB PO SCH (09:00)
[2022-11-25] MEDS ORDERED: FERROUS SULFATE 325 MG TAB PO SCH (09:00)
[2022-11-25] MEDS ORDERED: ESCITALOPRAM 10 MG TAB PO SCH (09:00)
[2022-11-25] MEDS ORDERED: LEFLUNOMIDE 20 MG TAB PO SCH (09:00)
[2022-11-25] MEDS ORDERED: FOLIC ACID 1 MG TAB PO SCH (09:00)
--- NOTE | 2022-11-25 09:49 | P.CRDCN ---
History of Present Illness Consult date: 11/25/22 Consult reason: chest pain History of present illness: Patient is a pleasant 81-year-old female past medical history of atrial fibrillation on [place], COPD, hypertension, rheumatoid arthritis who presented to the emergency department with complaints of chest pain. She states that she follows with a automation technologist at [facility] Dr. Ferro scheduled to see him in January. She denies any history of AR or cardiac stents. She is a former smoker. Fa ezio history of father dying of AR at age 54. Reports that the chest pain was sharp and woke her up from her sleep yesterday, also was having left arm pain. This chest pain did improve with nitro emergency department. She has had dull aching chest pain overnight with nausea. Left arm pain has improved. EKG shows sinus rhythm with ST depressions in lateral and inferior leads. Echocardiogram with ejection fraction 6065 percent, moderate aortic insufficiency, mild mitral regurgitation. Troponin negative 3. BNP 541. On exam chest pain is reproducible. She has not had a stress test in the past few years but states that she did have a heart catheterization a few years ago with reported no blockages. Review of Systems All systems: negative Cardiovascular: Reports as per HPI, Reports chest pain Past Medical History Past Medical History: Atrial Fibrillation, Asthma, COPD, CVA/TIA, Eye Disorder, GERD/Reflux, Hypertension, Rheumatoid Arthritis (RA), Thyroid Disorder Additional Past Medical History / Comment(s): Other hx: Macular degeneration bilaterally-legally blind, rheumatoid arthritis in multple joints, osteoporosis, migraines, hypothyroid, urinary incontinence at times. History of Any Multi-Drug Resistant Organisms: ESBL Date of last positivie culture/infection: 06/05/18 MDRO Source:: esbl urine Past Surgical History: Appendectomy, Cholecystectomy, Hysterectomy, Orthopedic Surgery, Tonsillectomy Additional Past Surgical History / Comment(s): D&C, colonoscopy, left knee scope, right arm ORIF. Past Anesthesia/Blood Transfusion Reactions: Motion Sickness Additional Past Anesthesia/Blood Transfusion Reaction / Comment(s): severe motion sickness Past Psychological History: No Psychological Hx Reported Additional Psychological History / Comment(s): She just got a walker. She is legally blind, no longer drives, her spouse drives and manages her medications. She has contact with a great manuelito that lives next door. She is retired, worked most recently at [employer]. No recent travel. No experience. Smoking Status: Former smoker Past Alcohol Use History: None Reported Additional Past Alcohol Use History / Comment(s): patient was a smoker of a half a pack per day for 40 years and quit when she was 60 years of age. No alcohol use. Past Drug Use History: None Reported - Past Family History Mother Additional Family Medical History / Comment(s): Pt states mother had severe migraines and at the age of 43yrs while hospitalized with severe migraine but does not know cause of . Father Family Medical History: Myocardial Infarction (AR) Additional Family Medical History / Comment(s): Father of a AR at the age of 54yrs. Family Additional Family Medical History / Comment(s): Patient denies any history of coronary artery disease Medications and Allergies Home Medications Medication Instructions Recorded Confirmed Type Folic Acid 1 mg PO DAILY 06/05/18 11/24/22 History Montelukast [Singulair] 10 mg PO HS 06/05/18 11/24/22 History Apixaban [Eliquis] 5 mg PO BID tab 06/10/18 11/24/22 Rx Fremanezumab-Vfrm [Ajovy Syringe] 225 mg SQ Q30D 06/03/19 11/24/22 History Albuterol Inhaler [Ventolin Hfa 2 puff INHALATION RT-QID PRN 03/14/22 11/24/22 History Inhaler] Cholecalciferol [Vitamin D3 (25 50 mcg PO DAILY 03/14/22 11/24/22 History Mcg = 1000 Iu)] Ferrous Sulfate [Iron (65 MG 325 mg PO DAILY 03/14/22 11/24/22 History Elemental)] Levothyroxine Sodium [Synthroid] 25 mcg PO DAILY 03/14/22 11/24/22 History allopurinoL 300 mg PO Q48H 03/14/22 11/24/22 History Aspirin 81 mg PO DAILY 10 Days #10 tab 03/23/22 11/24/22 Rx Cyanocobalamin [Vitamin B-12] 1,000 mcg PO DAILY 30 Days #60 tab 03/23/22 11/24/22 Rx Metoprolol Tartrate [Lopressor] 25 mg PO BID 30 Days #60 tab 03/23/22 11/24/22 Rx Doxycycline Hyclate 100 mg PO BID 11/24/22 11/24/22 History Escitalopram [Lexapro] 10 mg PO DAILY 11/24/22 11/24/22 History Ipratropium/Albuter 20-100Mcg 1 puff INHALATION RT-QID 11/24/22 11/24/22 History [Combivent Respimat 20-100Mcg Inhaler] Leflunomide [Arava] 10 mg PO DAILY 11/24/22 11/24/22 History Melatonin 3 mg PO HS PRN 11/24/22 11/24/22 History Omeprazole 40 mg PO DAILY 11/24/22 11/24/22 History Topiramate [Topamax] 50 mg PO BID 11/24/22 11/24/22 History Allergies Allergy/AdvReac Type Severity Reaction Status Date / Time adhesive tape Allergy Unknown Verified 11/24/22 10:47 ciprofloxacin [From Cipro] Allergy Unknown Verified 11/24/22 10:47 epinephrine Allergy Unknown Verified 11/24/22 10:47 latex Allergy Rash/Hives Verified 11/24/22 10:47 Penicillins Allergy Unknown Verified 11/24/22 10:47 povidone-iodine Allergy Unknown Verified 11/24/22 10:47 [From Betadine] soap [From Betadine] Allergy Unknown Verified 11/24/22 10:47 Sulfa (Sulfonamide Allergy Unknown Verified 11/24/22 10:47 Antibiotics) Tetanus Vaccines and Toxoid Allergy Unknown Verified 11/24/22 10:47 amitriptyline [From Elavil] AdvReac Confusion Verified 11/24/22 10:47 Physical Exam Vitals: Vital Signs Temp Pulse Pulse Resp BP BP Pulse Ox 11/25/22 08:47 50 L 16 11/25/22 08:35 51 L 16 97 11/25/22 07:43 97.9 F 51 L 16 140/75 95 11/25/22 04:00 68 17 153/75 93 L 11/24/22 23:20 54 L 18 147/64 97 11/24/22 20:25 98.2 F 62 17 134/67 92 L 11/24/22 16:00 94 16 144/76 94 L 11/24/22 15:36 64 11/24/22 15:16 60 11/24/22 12:00 57 L 16 156/71 96 11/24/22 11:00 67 20 139/71 96 11/24/22 10:30 65 20 157/68 96 11/24/22 10:00 68 18 162/68 96 Intake and Output 11/24/22 11/25/22 11/25/22 22:59 06:59 14:59 Intake Total 236 Balance 236 Intake: Oral 236 Other: # Voids 1 - Constitutional General appearance: no acute distress - Respiratory Respiratory: bilateral: CTA, negative: wheezing - Cardiovascular Rhythm: regular Heart sounds: normal: S1, S2 - Gastrointestinal General gastrointestinal: normal bowel sounds, no organomegaly, soft, no tenderness Results 11/24/22 08:25 11/24/22 08:25 Cardiac Enzymes 11/24/22 11/24/22 Range/Units 12:49 16:06 Troponin I <0.012 <0.012 (0.000-0.034) ng/mL Current Medications Generic Name Dose Route Start Last Admin Trade Name Freq PRN Reason Stop Dose Admin Albuterol Sulfate 2.5 mg 11/24/22 11:16 Albuterol Nebulized 2.5 Mg/3 Ml INHALATION RT-QID PRN Shortness Of Breath Albuterol Sulfate 2.5 mg 11/24/22 12:00 11/25/22 08:35 Albuterol Nebulized 2.5 Mg/3 Ml INHALATION 2.5 mg RT-QID JUANCHO Administration Allopurinol 300 mg 11/24/22 12:00 11/24/22 12:20 Allopurinol 300 Mg Tab PO 300 mg Q48H JUANCHO Administration Apixaban 5 mg 11/24/22 21:00 11/25/22 07:47 Apixaban 5 Mg Tab PO 5 mg BID JUANCHO Administration Protocol Aspirin 325 mg 11/25/22 09:00 11/25/22 07:48 Aspirin 325 Mg Tab PO 325 mg DAILY JUANCHO Administration Escitalopram Oxalate 10 mg 11/25/22 09:00 11/25/22 07:47 Escitalopram 10 Mg Tab PO 10 mg DAILY JUANCHO Administration Ferrous Sulfate 325 mg 11/25/22 09:00 11/25/22 07:47 Ferrous Sulfate 325 Mg Tab PO 325 mg DAILY JUANCHO Administration Folic Acid 1 mg 11/25/22 09:00 11/25/22 07:48 Folic Acid 1 Mg Tab PO 1 mg DAILY JUANCHO Administration Ipratropium [place] 0.5 mg 11/24/22 12:00 11/25/22 08:35 Ipratropium 0.5 Mg/2.5 Ml Nebu INHALATION 0.5 mg RT-QID JUANCHO Administration Leflunomide 10 mg 11/25/22 09:00 11/25/22 07:47 Leflunomide 20 Mg Tab PO 10 mg DAILY JUANCHO Administration Levothyroxine Sodium 25 mcg 11/25/22 06:30 11/25/22 05:22 Levothyroxine 25 Mcg Tab PO 25 mcg DAILY@0630 JUANCHO Administration Melatonin 3 mg 11/24/22 11:16 Melatonin 3 Mg Tablet PO HS PRN Insomnia Metoprolol Tartrate 25 mg 11/24/22 21:00 11/25/22 07:48 Metoprolol Tartrate 25 Mg Tab PO 25 mg BID JUANCHO Administration Montelukast Sodium 10 mg 11/24/22 21:00 11/24/22 20:28 Montelukast 10 Mg Tab PO 10 mg HS JUANCHO Administration Nitroglycerin 0.4 mg 11/24/22 10:31 Nitroglycerin Sl Tabs 0.4 Mg Tab SUBLINGUAL Q5M PRN Chest Pain Pantoprazole Sodium 40 mg 11/25/22 07:30 11/25/22 05:22 Pantoprazole 40 Mg Tablet PO 40 mg [id number] JUANCHO Administration Topiramate 50 mg 11/24/22 21:00 11/25/22 07:48 Topiramate 25 Mg Tab PO 50 mg BID JUANCHO Administration Intake and Output 11/24/22 11/25/22 11/25/22 22:59 06:59 14:59 Intake Total 236 Balance 236 Intake: Oral 236 Other: # Voids 1 11/24/22 08:25 11/24/22 08:25 - Imaging and Cardiology Echo: report reviewed Assessment and Plan Assessment: Impression and plan: 1. Atypical chest pain, reproducible on exam 2. Atrial fibrillation, currently in normal sinus rhythm 3. Hypertension 4. COPD 5. Rheumatoid arthritis Recommendations: On exam her chest pain is reproducible, more likely musculoskeletal than cardiac. Recommend Tylenol PRN. Echo reviewed. Troponin negative 3, BNP normal. She reported normal heart cath a few years ago. Atypical chest pain, no further workup indicated at this time. Continue current medications. OK to DC from a cardiology standpoint. Follow up with cardiology in 1 week.
[2022-11-25 10:41] LABS: Chol/HDL Ratio 3.17 Ratio; LDL Cholesterol,Calculated 117.8 mg/dL (0.0-131.0)
[2022-11-25] MEDS ORDERED: ACETAMINOPHEN TAB 325 MG TAB PO STA (14:05)
[2022-11-25 15:18] VITALS: PULSE 85
== END 2022-11-25 16:55 | disposition home or self-care (01) ==
LOC: EC 08:04 → SUPCPDRO 08:04 → 3SCARD 10:47 → 6NMEDSUR 11-25 10:36
PROVIDERS: ADMIT Internal Medicine; ATTEND Internal Medicine
DX: R07.89 Other chest pain (principal); I10 Essential (primary) hypertension; J44.9 Chronic obstructive pulmonary disease, unspecified; I48.91 Unspecified atrial fibrillation; M06.9 Rheumatoid arthritis, unspecified; Z82.49 Family history of ischemic heart disease and other diseases of the circulatory system; I08.0 Rheumatic disorders of both mitral and aortic valves; Z86.73 Personal history of transient ischemic attack (TIA), and cerebral infarction without residual deficits; K21.9 Gastro-esophageal reflux disease without esophagitis; H35.30 Unspecified macular degeneration; M81.0 Age-related osteoporosis without current pathological fracture; H54.8 Legal blindness, as defined in USA; E03.9 Hypothyroidism, unspecified; R32 Unspecified urinary incontinence; Z86.19 Personal history of other infectious and parasitic diseases; Z90.49 Acquired absence of other specified parts of digestive tract; Z90.710 Acquired absence of both cervix and uterus; Z98.890 Other specified postprocedural states; Z87.891 Personal history of nicotine dependence; Z87.01 Personal history of pneumonia (recurrent); Z84.89 Family history of other specified conditions; Z79.890 Hormone replacement therapy; Z79.899 Other long term (current) drug therapy; Z79.82 Long term (current) use of aspirin; Z79.01 Long term (current) use of anticoagulants; Z88.1 Allergy status to other antibiotic agents; Z91.040 Latex allergy status; Z88.0 Allergy status to penicillin; Z88.2 Allergy status to sulfonamides; Z88.8 Allergy status to other drugs, medicaments and biological substances; Z91.048 Other nonmedicinal substance allergy status; Z91.09 Other allergy status, other than to drugs and biological substances
CPT/HCPCS: 99285; 36415; 94640 ×3; 94760; 93005; 93306; 83880; 80061; 80053; 83735; 84484; 85025; 85610; 85730; 71046; G0378 ×2

== ENCOUNTER 2024-07-12 13:53 | Observation (INO) | payer MEDICARE ==
--- NOTE | 2024-07-12 14:12 | ED ---
General Adult HPI - General Chief complaint: Recheck/Abnormal Lab/Rx Stated complaint: nausea Time Seen by Provider: 07/12/24 14:02 Source: patient, EMS, RN notes reviewed Mode of arrival: EMS Limitations: no limitations - History of Present Illness Initial comments: 83-year-old female presents emergency room via EMS from PCPs office for dyspnea. Patient patient states that she has had a cough for last 2 weeks that is productive. Patient states she was on doxycycline and prednisone she had no relief she developed nausea. Patient went in for recheck along with her nausea today was found to have an elevated heart rate. She does take Eliquis and has a history of A-fib. Patient denies any chest pain no leg pain or swelling. - Related Data Home Medications Medication Instructions Recorded Confirmed Folic Acid 1 mg PO DAILY 06/05/18 07/12/24 Montelukast [Singulair] 10 mg PO HS 06/05/18 07/12/24 Albuterol Inhaler [Ventolin Hfa 2 puff INHALATION RT-Q6H PRN 03/14/22 07/12/24 Inhaler] Cholecalciferol [Vitamin D3 (25 50 mcg PO DAILY 03/14/22 07/12/24 Mcg = 1000 Iu)] Ferrous Sulfate [Iron (65 MG 325 mg PO BID 03/14/22 07/12/24 Elemental)] Levothyroxine Sodium [Synthroid] 25 mcg PO DAILY 03/14/22 07/12/24 Leflunomide [Arava] 10 mg PO DAILY 11/24/22 07/12/24 Melatonin 3 mg PO HS 11/24/22 07/12/24 Budesonide/Formoterol Fumarate 2 puff INHALATION RT-BID 07/12/24 07/12/24 [Symbicort 160-4.5 Mcg Inhaler] Carboxymethylcellulose Sodium 1 drop BOTH EYES DAILY 07/12/24 07/12/24 [Refresh Tears] Cyanocobalamin (Vitamin B-12) 1,000 mcg PO DAILY 07/12/24 07/12/24 [Vitamin B-12] Doxycycline Hyclate 100 mg PO BID 07/12/24 07/12/24 Rimegepant Sulfate [Nurtec Odt] 75 mg PO DAILY PRN 07/12/24 07/12/24 bisacodyL [Correctol] 5 mg PO DAILY PRN 07/12/24 07/12/24 lisinopriL [Zestril] 10 mg PO DAILY 07/12/24 07/12/24 predniSONE [Deltasone] See Taper PO DAILY 07/12/24 07/12/24 Previous Rx's Medication Instructions Recorded Apixaban [Eliquis] 5 mg PO BID tab 06/10/18 Aspirin 81 mg PO DAILY 10 Days #10 tab 03/23/22 Allergies Allergy/AdvReac Type Severity Reaction Status Date / Time adhesive tape Allergy Unknown Verified 07/12/24 18:48 ciprofloxacin [From Cipro] Allergy Unknown Verified 07/12/24 18:48 epinephrine Allergy Unknown Verified 07/12/24 18:48 latex Allergy Rash/Hives Verified 07/12/24 18:48 Penicillins Allergy Unknown Verified 07/12/24 18:48 povidone-iodine Allergy Unknown Verified 07/12/24 18:48 [From Betadine] soap [From Betadine] Allergy Unknown Verified 07/12/24 18:48 Sulfa (Sulfonamide Allergy Unknown Verified 07/12/24 18:48 Antibiotics) Tetanus Vaccines and Toxoid Allergy Unknown Verified 07/12/24 18:48 amitriptyline [From Elavil] AdvReac Confusion Verified 07/12/24 18:48 Review of Systems ROS Statement: Those systems with pertinent positive or pertinent negative responses have been documented in the HPI. ROS Other: All systems not noted in ROS Statement are negative. Past Medical History Past Medical History: Atrial Fibrillation, Asthma, COPD, CVA/TIA, Eye Disorder, GERD/Reflux, Hypertension, Rheumatoid Arthritis (RA), Thyroid Disorder Additional Past Medical History / Comment(s): Other hx: Macular degeneration bilaterally-legally blind, rheumatoid arthritis in multple joints, osteoporosis, migraines, hypothyroid, urinary incontinence at times. History of Any Multi-Drug Resistant Organisms: ESBL Date of last positivie culture/infection: 06/05/18 MDRO Source:: esbl urine Past Surgical History: Appendectomy, Cholecystectomy, Hysterectomy, Orthopedic Surgery, Tonsillectomy Additional Past Surgical History / Comment(s): D&C, colonoscopy, left knee s cope, right arm ORIF. Past Anesthesia/Blood Transfusion Reactions: Motion Sickness Additional Past Anesthesia/Blood Transfusion Reaction / Comment(s): severe motion sickness Past Psychological History: No Psychological Hx Reported Smoking Status: Former smoker Past Alcohol Use History: None Reported Past Drug Use History: None Reported - Past Family History Mother Additional Family Medical History / Comment(s): Pt states mother had severe migraines and at the age of 43yrs while hospitalized with severe migraine but does not know cause of . Father Family Medical History: Myocardial Infarction (MS) Additional Family Medical History / Comment(s): Father of a MS at the age of 54yrs. Family Additional Family Medical History / Comment(s): Patient denies any history of coronary artery disease General Exam Limitations: no limitations General appearance: alert, in no apparent distress Head exam: Present: atraumatic, normocephalic, normal inspection Eye exam: Present: normal appearance, PERRL, EOMI. Absent: scleral icterus, conjunctival injection, periorbital swelling ENT exam: Present: normal exam, normal oropharynx, mucous membranes moist Neck exam: Present: normal inspection, full ROM. Absent: tenderness, meningi smus, lymphadenopathy Respiratory exam: Present: respiratory distress, wheezes, rhonchi. Absent: normal lung sounds bilaterally, rales, stridor Cardiovascular Exam: Present: tachycardia, irregular rhythm, normal heart sounds. Absent: systolic murmur, diastolic murmur, rubs, gallop, clicks GI/Abdominal exam: Present: soft, normal bowel sounds. Absent: distended, tenderness, guarding, rebound, rigid Extremities exam: Absent: pedal edema Skin exam: Present: warm, dry, intact, normal color. Absent: rash Course Vital Signs 07/12/24 07/12/24 07/12/24 13:58 14:01 14:50 Temperature 97.9 F Pulse Rate 142 H 140 H Respiratory 20 20 20 Rate Blood Pressure 117/77 110/76 O2 Sat by Pulse 97 96 Oximetry 07/12/24 07/12/24 07/12/24 15:22 15:26 15:34 Temperature Pulse Rate 137 H 140 H 138 H Respiratory 18 Rate Blood Pressure 122/69 O2 Sat by Pulse 100 Oximetry 07/12/24 07/12/24 07/12/24 15:42 17:54 20:00 Temperature Pulse Rate 135 H 135 H 140 H Respiratory 20 18 5 L Rate Blood Pressure 119/83 146/74 110/87 O2 Sat by Pulse 96 93 L 94 L Oximetry 07/12/24 07/12/24 22:45 23:14 Temperature 97.8 F Pulse Rate 126 H 128 H Respiratory 20 16 Rate Blood Pressure 123/92 129/87 O2 Sat by Pulse 95 94 L Oximetry EKG Findings - EKG Comments: EKG Findings:: EKG performed at 14: 09 atrial flutter rate of 141 QRS 110 QT/QTc 296/374 - EKG Results: EKG: interpreted by ERMD Medical Decision Making - Medical Decision Making Was pt. sent in by a medical professional or institution (, PA, DENTAL HYGIENE PROFESSOR, urgent care, hospital, or halfway...) When possible be specific @ -PCP Did you speak to anyone other than the patient for history (EMS, parent, family, police, friend...)? What history was obtained from this source @ -No Did you review nursing and triage notes (agree or disagree)? Why? @ -I reviewed and agree with nursing and triage notes Were old charts reviewed (outside hosp., previous admission, EMS record, old EKG, old radiological studies, urgent care reports/EKG's, halfway records)? Report findings @ -No old charts were reviewed Differential Diagnosis (chest pain, altered mental status, abdominal pain women, abdominal pain men, vaginal bleeding, weakness, fever, dyspnea, syncope, headache, dizziness, GI bleed, back pain, seizure, CVA, palpatations, mental health, musculoskeletal)? @ -Differential Dyspnea: Coronary syndrome, arrhythmia, tamponade, asthma, COPD, pulmonary embolism, pneumonia, pneumothorax, pulmonary effusion, anaphylaxis, diabetic ketoacidosis, flailed chest, pulmonary contusion, diaphragmatic rupture, anemia, neuromus cular, this is not meant to be an all-inclusive list. EKG interpreted by me (3pts min.). @ -As above X-rays interpreted by me (1pt min.). @ -Chest x-ray shows mild pulmonary edema, no infiltrates CT interpreted by me (1pt min.). @ -None done U/S interpreted by me (1pt. min.). @ -None done What testing was considered but not performed or refused? (CT, X-rays, U/S, labs)? Why? @ -None What meds were considered but not given or refused? Why? @ -None Did you discuss the management of the patient with other professionals (professionals i.e. , PA, DENTAL HYGIENE PROFESSOR, lab, RT, psych nurse, social media content specialist, personnel analyst, teacher, chief sales officer, bilingual case manager)? Give summary @ -Dr. Sue for admission Was smoking cessation discussed for >3mins.? @ -No Was critical care preformed (if so, how long)? @ -35 minutes of critical care Were there social determinants of health that impacted care today? How? (Homelessness, low income, unemployed, alcoholism, drug addiction, transportation, low edu. Level, literacy, decrease access to med. care, [facility], rehab)? @ -No Was there de-escalation of care discussed even if they declined (Discuss DNR or withdrawal of care, Hospice)? DNR status @ -No What co-morbidities impacted this encounter? (DM, HTN, Smoking, COPD, CAD, Cancer, CVA, ARF, Chemo, Hep., AIDS, mental health diagnosis, sleep apnea, morbid obesity)? @ -A fib, COPD Was patient admitted / discharged? Hospital course, mention meds given and route, prescriptions, significant lab abnormalities, going to OR and other p ertinent info. @ -Hospital course Undiagnosed new problem with uncertain prognosis? @ -No Drug Therapy requiring intensive monitoring for toxicity (Heparin, Nitro, Insulin, Cardizem)? @ -No Were any procedures done? @ -No Diagnosis/symptom? @ -A-fib RVR, COPD, pulmonary edema Acute, or Chronic, or Acute on Chronic? @ -Acute Uncomplicated (without systemic symptoms) or Complicated (systemic symptoms)? @ -Complicated Side effects of treatment? @ -No Exacerbation, Progression, or Severe Exacerbation? @ -No Poses a threat to life or bodily function? How? (Chest pain, USA, MS, pneumonia, PE, COPD, DKA, ARF, appy, cholecystitis, CVA, Diverticulitis, Homicidal, Suicidal, threat to staff... and all critical care pts) @ -Yes respiratory, cardiac failure - Lab Data Result diagrams: 07/12/24 14:21 07/13/24 10:51 Lab Results 07/12/24 07/12/24 07/12/24 Range/Units 14:21 14:21 14:21 WBC 13.0 H (3.8-10.6) k/uL RBC 5.10 (3.80-5.40) m/uL Hgb 14.6 (11.4-16.0) gm/dL Hct 47.1 H (34.0-46.0) % MCV 92.4 (80.0-100.0) fL MCH 28.7 (25.0-35.0) pg MCHC 31.1 (31.0-37.0) g/dL RDW 23.4 H (11.5-15.5) % Plt Count 352 (150-450) k/uL MPV 8.2 Neutrophils % 73 % Lymphocytes % 17 % Monocytes % 6 % Eosinophils % 2 % Basophils % 0 % Neutrophils # 9.5 H (1.3-7.7) k/uL Lymphocytes # 2.3 (1.0-4.8) k/uL Monocytes # 0.8 (0-1.0) k/uL Eosinophils # 0.2 (0-0.7) k/uL Basophils # 0.0 (0-0.2) k/uL Hypochromasia Slight Anisocytosis Moderate Microcytosis Slight PT 10.3 (10.0-12.5) sec INR 0.9 (<1.2) APTT 25.2 (22.0-30.0) sec Sodium (137-145) mmol/L Potassium (3.5-5.1) mmol/L Chloride (98-107) mmol/L Carbon Dioxide (22-30) mmol/L Anion Gap mmol/L BUN (7-17) mg/dL Creatinine (0.52-1.04) mg/dL Est GFR (CKD-EPI)AfAm (>60 ml/min/1.73 sqM) Est GFR (CKD-EPI)NonAf (>60 ml/min/1.73 sqM) Glucose (74-99) mg/dL Plasma Lactic Acid Ross 1.5 (0.7-2.0) mmol/L Calcium (8.4-10.2) mg/dL Magnesium (1.6-2.3) mg/dL Total Bilirubin (0.2-1.3) mg/dL AST (14-36) U/L ALT (4-34) U/L Alkaline Phosphatase (38-126) U/L Troponin I (0.000-0.034) ng/mL NT-Pro-B Natriuret Pep pg/mL Total Protein (6.3-8.2) g/dL Albumin (3.5-5.0) g/dL Influenza Type A (PCR) (Not Detectd) Influenza Type B (PCR) (Not Detectd) RSV (PCR) (Not Detectd) SARS-CoV-2 (PCR) (Not Detectd) 07/12/24 07/12/24 07/12/24 Range/Units 14:21 16:10 16:10 WBC (3.8-10.6) k/uL RBC (3.80-5.40) m/uL Hgb (11.4-16.0) gm/dL Hct (34.0-46.0) % MCV (80.0-100.0) fL MCH (25.0-35.0) pg MCHC (31.0-37.0) g/dL RDW (11.5-15.5) % Plt Count (150-450) k/uL MPV Neutrophils % % Lymphocytes % % Monocytes % % Eosinophils % % Basophils % % Neutrophils # (1.3-7.7) k/uL Lymphocytes # (1.0-4.8) k/uL Monocytes # (0-1.0) k/uL Eosinophils # (0-0.7) k/uL Basophils # (0-0.2) k/uL Hypochromasia Anisocytosis Microcytosis PT (10.0-12.5) sec INR (<1.2) APTT (22.0-30.0) sec Sodium 141 (137-145) mmol/L Potassium 4.2 (3.5-5.1) mmol/L Chloride 110 H (98-107) mmol/L Carbon Dioxide 22 (22-30) mmol/L Anion Gap 9 mmol/L BUN 24 H (7-17) mg/dL Creatinine 1.57 H (0.52-1.04) mg/dL Est GFR (CKD-EPI)AfAm 35 (>60 ml/min/1.73 sqM) Est GFR (CKD-EPI)NonAf 31 (>60 ml/min/1.73 sqM) Glucose 104 H (74-99) mg/dL Plasma Lactic Acid Ross (0.7-2.0) mmol/L Calcium 9.2 (8.4-10.2) mg/dL Magnesium 2.0 (1.6-2.3) mg/dL Total Bilirubin 0.4 (0.2-1.3) mg/dL AST 26 (14-36) U/L ALT 15 (4-34) U/L Alkaline Phosphatase 95 (38-126) U/L Troponin I <0.012 (0.000-0.034) ng/mL NT-Pro-B Natriuret Pep 8470 pg/mL Total Protein 6.4 (6.3-8.2) g/dL Albumin 3.6 (3.5-5.0) g/dL Influenza Type A (PCR) Not Detected (Not Detectd) Influenza Type B (PCR) Not Detected (Not Detectd) RSV (PCR) Not Detected (Not Detectd) SARS-CoV-2 (PCR) Not Detected (Not Detectd) Critical Care Time Critical Care Time: Yes Total Critical Care Time: 35 Disposition Clinical Impression: Atrial fibrillation with RVR, COPD (chronic obstructive pulmonary disease), Pu lmonary edema Disposition: ADMITTED IP TO THIS HOSP Condition: Fair Time of Disposition: 16:11
[2024-07-12 14:31] LABS: Anisocytosis Moderate; Basophils % (A) 0 %; Eosinophils # (A) 0.2 k/uL (0-0.7); Eosinophils % (A) 2 %; HCT 47.1 % (34.0-46.0); HGB 14.6 gm/dL (11.4-16.0); Hypochromasia Slight; Lymphocytes # (A) 2.3 k/uL (1.0-4.8); Lymphocytes % (A) 17 %; MCH 28.7 pg (25.0-35.0); MCHC 31.1 g/dL (31.0-37.0); MCV 92.4 fL (80.0-100.0); Mean Platelet Volume 8.2; Microcytosis Slight; Monocytes # (A) 0.8 k/uL (0-1.0); Monocytes % (A) 6 %; Neutrophils # (A) 9.5 k/uL (1.3-7.7); Neutrophils % (A) 73 %; Platelet Count 352 k/uL (150-450); RDW 23.4 % (11.5-15.5)
[2024-07-12] MEDS: SODIUM CHLORIDE 0.9% 500 ML 500 ML IV STA (14:41)
[2024-07-12] MEDS: methylPREDNISolone SOD SUCCI 125 MG/2 ML VIAL IV STA (14:42)
[2024-07-12] MEDS: DILTIAZEM DRIP BOLUS FROM BAG 1 MG SOLN IV ONE (14:49)
[2024-07-12] MEDS: DILTIAZEM 125 MG in SODIUM CHLORIDE 0.9% 100 ML IV SCH (14:49)
[2024-07-12 15:08] LABS: INR 0.9 (<1.2); Partial Thromboplastin Time 25.2 sec (22.0-30.0); Prothrombin Time 10.3 sec (10.0-12.5)
[2024-07-12] MEDS: IPRATROPIUM-ALBUTEROL 3 ML NEB INHALATION STA (15:22)
--- NOTE | 2024-07-12 15:22 | XR ---
EXAMINATION TYPE: XR chest 2V DATE OF EXAM: 07/12/2024 2:57 PM COMPARISON: Chest radiographs from 11/24/2022 CLINICAL INDICATION: Female, 83 years old with history of difficulty breathing; [facility] TECHNIQUE: XR chest 2V Frontal and lateral views of the chest. FINDINGS: Lungs/Pleura: There is no evidence of pleural effusion, focal consolidation, or pneumothorax. Pulmonary vascularity: Pulmonary vascular congestion. Heart/mediastinum: Cardiomediastinal silhouette is enlarged and stable. Musculoskeletal: No acute osseous pathology. IMPRESSION: Cardiomegaly and mild pulmonary vascular congestion. Correlate with BNP for congestive heart failure. [facility], , 07/12/2024 3:19 PM
[2024-07-12 16:31] LABS: ALT 15 U/L (4-34); AST 26 U/L (14-36); African American GFR (CKD) 35 (>60 ml/min/1.73 sqM); Albumin 3.6 g/dL (3.5-5.0); Alkaline Phosphatase 95 U/L (38-126); Anion Gap 9 mmol/L; Blood Urea Nitrogen 24 mg/dL (7-17); Calcium 9.2 mg/dL (8.4-10.2); Carbon Dioxide 22 mmol/L (22-30); Chloride 110 mmol/L (98-107); Glucose 104 mg/dL (74-99); Non-African American GFR(CKD) 31 (>60 ml/min/1.73 sqM); Potassium 4.2 mmol/L (3.5-5.1); Sodium 141 mmol/L (137-145); Total Bilirubin 0.4 mg/dL (0.2-1.3); Total Protein 6.4 g/dL (6.3-8.2)
[2024-07-12 16:38] LABS: NT-Pro-B-Type Natriuretic Pept 8470 pg/mL
[2024-07-12] MEDS: FUROSEMIDE 10 MG/ML 4 ML VIAL IV STA (18:09)
[2024-07-12] MEDS: IPRATROPIUM-ALBUTEROL 3 ML NEB INHALATION SCH ×2 (19:48→20:01)
[2024-07-12] MEDS ORDERED: IPRATROPIUM-ALBUTEROL 3 ML NEB INHALATION PRN (19:49)
[2024-07-12] MEDS: ACETAMINOPHEN TAB 325 MG TAB PO PRN (20:15)
[2024-07-12] MEDS: METOPROLOL TARTRATE 50 MG TAB PO SCH (20:16)
[2024-07-12] MEDS: APIXABAN 2.5 MG TABLET PO SCH (20:16)
[2024-07-12] MEDS ORDERED: METOPROLOL TARTRATE 25 MG TAB PO SCH (21:00)
[2024-07-12] MEDS: HYDROcodone/APAP 5-325MG 1 EACH TAB PO PRN (22:49)
[2024-07-13] MEDS ORDERED: ALBUTEROL NEBULIZED 2.5 MG/3 ML INHALATION PRN (10:32)
[2024-07-13] MEDS ORDERED: bisacodyL 5 MG TABLET.DR PO PRN (10:32)
[2024-07-13] MEDS ORDERED: PATIENT'S OWN (Rimegepant Sulfate [Nurtec Odt] 75 MG Tablet) PO PRN (10:32)
[2024-07-13] MEDS: SODIUM CHLORIDE 0.9% 1,000 ML IV SCH ×2 (10:45→13:39)
[2024-07-13 11:37] LABS: African American GFR (CKD) 29 (>60 ml/min/1.73 sqM); Anion Gap 9 mmol/L; Blood Urea Nitrogen 42 mg/dL (7-17); Calcium 8.9 mg/dL (8.4-10.2); Carbon Dioxide 20 mmol/L (22-30); Chloride 109 mmol/L (98-107); Glucose 160 mg/dL (74-99); Non-African American GFR(CKD) 25 (>60 ml/min/1.73 sqM); Potassium 4.4 mmol/L (3.5-5.1); Sodium 138 mmol/L (137-145)
[2024-07-13] MEDS: LEFLUNOMIDE 20 MG TAB PO SCH (11:40)
[2024-07-13] MEDS: LEVOTHYROXINE 25 MCG TAB PO SCH (11:41)
[2024-07-13] MEDS: ARTIFICIAL TEARS-HYPROMELLOSE DROPS 15 ML BTL BOTH EYES SCH (11:41)
--- NOTE | 2024-07-13 12:23 | P.CRDCN ---
History of Present Illness History of present illness: HISTORY OF PRESENT ILLNESS: This is a 83-year-old female with a past medical history significant for atrial fibrillation, hypertension, and hypothyroidism. Patient follows with a cardiolo gist out of town. We have been asked to see the patient in consultation for atrial fibrillation. Patient examined at the bedside. Patient states that she was at her physician's office yesterday due to feeling unwell. She states that she has been feeling short of breath. Additionally she reports feeling congested and had a productive cough at home. She reports having a mild low- grade fever at home as well. She states yesterday she had an episode of chest pain in the middle of her chest that was sharp in nature. She states the pain was worse with deep inspiration. She denies having any palpitations. The patient is currently in atrial fibs/flutter with a heart rate in the 140s. She is on IV Cardizem at 10 mg an hour. Patient states that she has been compliant with her Eliquis and has not missed any doses within the last month. DIAGNOSTICS: - EKG reveals atrial fibrillation/flutter with RVR - Chest xray cardiomegaly and mild pulmonary vascular congestion - Laboratory data: WBC 13.0. Hemoglobin 14.6. Platelet count 352. Sodium 141. Potassium 4.2. BUN 24. Creatinine 1.57. Troponin negative x 3. proBNP 8470. - Current home cardiac medications include Eliquis 5 mg twice a day, lisinopril 10 mg daily - Most recent echocardiogram obtained in November 2022 revealed ejection fraction 60 to 65% with moderate aortic insufficiency REVIEW OF SYSTEMS: At the time of my exam: CONSTITUTIONAL: Denies fever or chills. HEENT: Denies blurred vision, vision changes, or eye pain. Denies hemoptysis CARDIOVASCULAR: Denies chest pain. Denies orthopnea. Denies PND. Denies palpitations RESPIRATORY: Denies shortness of breath. GASTROINTESTINAL: Denies abdominal pain. Denies nausea or vomiting. HEMATOLOGIC: Denies bleeding disorders. GENITOURINARY: Denies any blood in urine. SKIN: Denies pruitis. Denies rash. PHYSICAL EXAM: VITAL SIGNS: Reviewed. GENERAL: Well-developed in no acute distress. HEENT: Head is normocephalic. Pupils are equal, round. Sclerae anicteric. Mucous membranes of the mouth are moist. Neck supple. No JVD or thyromegaly LUNGS: Respirations even and unlabored. Lungs essentially clear to auscultation bilaterally. HEART: Tachycardic. Irregular rate and rhythm. S1 and S2 heard. ABDOMEN: Soft. Nondistended. Nontender. EXTREMITIES: Normal range of motion. No clubbing or cyanosis. Peripheral pulses intact. No lower extremity edema NEUROLOGIC: Awake and alert. Oriented x 3. ASSESSMENT: Possible recent upper respiratory infection Paroxysmal atrial fibrillation/typical atrial flutter with RVR Hypertension Hypothyroidism PLAN: Obtain 2D echo to assess cardiac structure and function Continue Eliquis Continue metoprolol 50 mg twice a day Continue IV Cardizem N.p.o. Patient to undergo cardioversion this afternoon with Dr. Pedroza Further recommendations pending patient course Nurse practitioner note has been reviewed by physician. Signing provider agrees with the documented findings, assessment, and plan of care documented by [employer] INSPECTOR as a scribe. Past Medical History Past Medical History: Atrial Fibrillation, Asthma, COPD, CVA/TIA, Eye Disorder, GERD/Reflux, Hypertension, Rheumatoid Arthritis (RA), Thyroid Disorder Additional Past Medical History / Comment(s): Macular degeneration bilaterally- legally blind, osteoporosis, migraines, hypothyroid History of Any Multi-Drug Resistant Organisms: ESBL Date of last positivie culture/infection: 06/05/18 MDRO Source:: esbl urine Past Surgical History: Appendectomy, Cholecystectomy, Hysterectomy, Orthopedic Surgery, Tonsillectomy Additional Past Surgical History / Comment(s): D&C, colonoscopy, left knee scope, right arm ORIF. Past Anesthesia/Blood Transfusion Reactions: Motion Sickness Additional Past Anesthesia/Blood Transfusion Reaction / Comment(s): severe motion sickness Past Psychological History: No Psychological Hx Reported Smoking Status: Former smoker Past Alcohol Use History: None Reported Additional Past Alcohol Use History / Comment(s): . Past Drug Use History: None Reported - Past Family History Mother Additional Family Medical History / Comment(s): Pt states mother had severe migraines and at the age of 43yrs while hospitalized with severe migraine but does not know cause of . Father Family Medical History: Myocardial Infarction (MT) Additional Family Medical History / Comment(s): Father of a MT at the age of 54yrs. Family Additional Family Medical History / Comment(s): Patient denies any history of coronary artery disease Medications and Allergies Home Medications Medication Instructions Recorded Confirmed Type Folic Acid 1 mg PO DAILY 06/05/18 07/12/24 History Montelukast [Singulair] 10 mg PO HS 06/05/18 07/12/24 History Apixaban [Eliquis] 5 mg PO BID tab 06/10/18 07/12/24 Rx Albuterol Inhaler [Ventolin Hfa 2 puff INHALATION RT-Q6H PRN 03/14/22 07/12/24 History Inhaler] Cholecalciferol [Vitamin D3 (25 50 mcg PO DAILY 03/14/22 07/12/24 History Mcg = 1000 Iu)] Ferrous Sulfate [Iron (65 MG 325 mg PO BID 03/14/22 07/12/24 History Elemental)] Levothyroxine Sodium [Synthroid] 25 mcg PO DAILY 03/14/22 07/12/24 History Aspirin 81 mg PO DAILY 10 Days #10 tab 03/23/22 07/12/24 Rx Leflunomide [Arava] 10 mg PO DAILY 11/24/22 07/12/24 History Melatonin 3 mg PO HS 11/24/22 07/12/24 History Budesonide/Formoterol Fumarate 2 puff INHALATION RT-BID 07/12/24 07/12/24 History [Symbicort 160-4.5 Mcg Inhaler] Carboxymethylcellulose Sodium 1 drop BOTH EYES DAILY 07/12/24 07/12/24 History [Refresh Tears] Cyanocobalamin (Vitamin B-12) 1,000 mcg PO DAILY 07/12/24 07/12/24 History [Vitamin B-12] Doxycycline Hyclate 100 mg PO BID 07/12/24 07/12/24 History Rimegepant Sulfate [Nurtec Odt] 75 mg PO DAILY PRN 07/12/24 07/12/24 History bisacodyL [Correctol] 5 mg PO DAILY PRN 07/12/24 07/12/24 History lisinopriL [Zestril] 10 mg PO DAILY 07/12/24 07/12/24 History predniSONE [Deltasone] See Taper PO DAILY 07/12/24 07/12/24 History Allergies Allergy/AdvReac Type Severity Reaction Status Date / Time adhesive tape Allergy Unknown Verified 07/12/24 18:48 ciprofloxacin [From Cipro] Allergy Unknown Verified 07/12/24 18:48 epinephrine Allergy Unknown Verified 07/12/24 18:48 latex Allergy Rash/Hives Verified 07/12/24 18:48 Penicillins Allergy Unknown Verified 07/12/24 18:48 povidone-iodine Allergy Unknown Verified 07/12/24 18:48 [From Betadine] soap [From Betadine] Allergy Unknown Verified 07/12/24 18:48 Sulfa (Sulfonamide Allergy Unknown Verified 07/12/24 18:48 Antibiotics) Tetanus Vaccines and Toxoid Allergy Unknown Verified 07/12/24 18:48 amitriptyline [From Elavil] AdvReac Confusion Verified 07/12/24 18:48 Physical Exam Vitals: Vital Signs Temp Pulse Pulse Resp BP BP Pulse Ox 07/13/24 11:28 133 H 18 07/13/24 11:16 131 H 18 07/13/24 08:22 131 H 18 07/13/24 08:13 133 H 18 98 07/13/24 08:00 97.1 F L 133 H 20 118/74 95 07/13/24 03:25 98.1 F 120 H 16 110/68 96 07/12/24 23:45 98.2 F 111 H 18 131/98 95 07/12/24 23:14 128 H 16 129/87 94 L 07/12/24 22:45 97.8 F 126 H 20 123/92 95 07/12/24 20:00 140 H 5 L 110/87 94 L 07/12/24 17:54 135 H 18 146/74 93 L 07/12/24 15:42 135 H 20 119/83 96 07/12/24 15:34 138 H 07/12/24 15:26 140 H 18 122/69 100 07/12/24 15:22 137 H 07/12/24 14:50 140 H 20 110/76 96 07/12/24 14:01 20 07/12/24 13:58 97.9 F 142 H 20 117/77 97 Intake and Output 07/12/24 07/13/24 07/13/24 22:59 06:59 14:59 Intake Total 77.416 47.584 405 Output Total 400 Balance 77.416 -352.416 405 Intake: Intake, IV Titration 77.416 47.584 47 Amount Diltiazem 125 mg In 77.416 47.584 47 Sodium Chloride 0.9% 100 ml @ 5 MG/HR 5 mls/hr IV .Q24H [facility] Rx#:[id number] Oral 358 Output: Urine 400 Other: Voiding Method External Catheter External Catheter # Voids 1 Weight 69.5 kg Results 07/12/24 14:21 07/13/24 10:51 Cardiac Enzymes 07/12/24 07/12/24 07/12/24 Range/Units 16:10 16:10 18:58 AST 26 (14-36) U/L Troponin I <0.012 <0.012 (0.000-0.034) ng/mL 07/12/24 Range/Units 21:26 AST (14-36) U/L Troponin I <0.012 (0.000-0.034) ng/mL Coagulation 07/12/24 Range/Units 14:21 PT 10.3 (10.0-12.5) sec APTT 25.2 (22.0-30.0) sec CBC 07/12/24 Range/Units 14:21 WBC 13.0 H (3.8-10.6) k/uL RBC 5.10 (3.80-5.40) m/uL Hgb 14.6 (11.4-16.0) gm/dL Hct 47.1 H (34.0-46.0) % Plt Count 352 (150-450) k/uL Comprehensive Metabolic Panel 07/12/24 Range/Units 16:10 Sodium 141 (137-145) mmol/L Potassium 4.2 (3.5-5.1) mmol/L Chloride 110 H (98-107) mmol/L Carbon Dioxide 22 (22-30) mmol/L BUN 24 H (7-17) mg/dL Creatinine 1.57 H (0.52-1.04) mg/dL Glucose 104 H (74-99) mg/dL Calcium 9.2 (8.4-10.2) mg/dL AST 26 (14-36) U/L ALT 15 (4-34) U/L Alkaline Phosphatase 95 (38-126) U/L Total Protein 6.4 (6.3-8.2) g/dL Albumin 3.6 (3.5-5.0) g/dL Current Medications Generic Name Dose Route Start Last Admin Trade Name Freq PRN Reason Stop Dose Admin Acetaminophen 650 mg 07/12/24 20:04 07/13/24 10:21 Acetaminophen Tab 325 Mg Tab PO 650 mg Q6HR PRN Administration Fever and/ or Pain Hydrocodone Bitart/Acetaminophen 1 each 07/12/24 20:04 07/13/24 07:00 Hydrocodone/Apap 5-325mg 1 Each Tab PO 1 each Q6HR PRN Administration Pain Albuterol Sulfate 2.5 mg 07/13/24 10:32 Albuterol Nebulized 2.5 Mg/3 Ml INHALATION RT-Q6H PRN Shortness Of Breath Or Wheezing Albuterol/Ipratropium 3 ml 07/12/24 20:00 07/13/24 11:16 Ipratropium-Albuterol 3 Ml Neb INHALATION 3 ml RT-QID [facility] Administration Albuterol/Ipratropium 3 ml 07/12/24 19:49 Ipratropium-Albuterol 3 Ml Neb INHALATION RT-Q2H PRN Shortness Of Breath Or Wheezing Apixaban 2.5 mg 07/12/24 21:00 07/13/24 08:16 Apixaban 2.5 Mg Tablet PO 2.5 mg BID [facility] Administration Protocol Artificial Tears 1 drops 07/13/24 10:45 07/13/24 11:41 Artificial Tears-Hypromellose Drops 15 Ml Btl BOTH EYES Not Given DAILY [facility] Aspirin 81 mg 07/14/24 09:00 Aspirin 81 Mg PO DAILY [facility] Bisacodyl 5 mg 07/13/24 10:32 Bisacodyl 5 Mg Tablet.Dr PO DAILY PRN Constipation Budesonide/Formoterol Fumarate 2 puff 07/13/24 20:00 Symbicort 160-4.5 Mcg Inhaler INHALATION RT-BID [facility] Cholecalciferol 50 mcg 07/14/24 09:00 Cholecalciferol 25 Mcg (1000 Iu) Tablet PO DAILY [facility] Cyanocobalamin 1,000 mcg 07/14/24 09:00 Cyanocobalamin 500 Mcg Tab PO DAILY [facility] Ferrous Sulfate 325 mg 07/13/24 21:00 Ferrous Sulfate 325 Mg Tab PO BID [facility] Folic Acid 1 mg 07/14/24 09:00 Folic Acid 1 Mg Tab PO DAILY [facility] Diltiazem HCl 125 mg/ Sodium 125 mls @ 5 mls/hr 07/12/24 14:30 07/13/24 11:43 Chloride IV 10 mg/hr .Q24H [facility] 10 mls/hr Administration 5 MG/HR Sodium Chloride 1,000 mls @ 20 mls/hr 07/13/24 10:15 07/13/24 10:45 Saline 0.9% IV Not Given .Q24H [facility] Leflunomide 10 mg 07/13/24 10:45 07/13/24 11:40 Leflunomide 20 Mg Tab PO Not Given DAILY [facility] Levothyroxine Sodium 25 mcg 07/13/24 10:45 07/13/24 11:41 Levothyroxine 25 Mcg Tab PO Not Given 0630 [facility] Melatonin 3 mg 07/13/24 21:00 Melatonin 3 Mg Tablet PO HS [facility] Metoprolol Tartrate 50 mg 07/12/24 20:00 07/13/24 08:16 Metoprolol Tartrate 50 Mg Tab PO 50 mg BID [facility] Administration Montelukast Sodium 10 mg 07/13/24 21:00 Montelukast 10 Mg Tab PO HS [facility] Patient's Own ( 75 mg 07/13/24 10:32 Rimegepant Sulfate [ PO Nurtec Odt] 75 Mg DAILY PRN Tablet) Migraine Headache Intake and Output 07/12/24 07/13/24 07/13/24 22:59 06:59 14:59 Intake Total 77.416 47.584 405 Output Total 400 Balance 77.416 -352.416 405 Intake: Intake, IV Titration 77.416 47.584 47 Amount Diltiazem 125 mg In 77.416 47.584 47 Sodium Chloride 0.9% 100 ml @ 5 MG/HR 5 mls/hr IV .Q24H [facility] Rx#:[id number] Oral 358 Output: Urine 400 Other: Voiding Method External Catheter External Catheter # Voids 1 Weight 69.5 kg 07/12/24 14:21 07/12/24 16:10
--- NOTE | 2024-07-13 17:05 | CA ---
Transthoracic Echo Report Name: Radhika Duncan Age: 83 Gender: F : 1940 Exam Date: 07/13/2024 15:14 Exam Location: [facility] Ht (in): 59 Wt (lb): 153 Ordering Physician: Charu Webb Attending/Referring Phys: [id number], Tracey Cryptologic Supervisor Merced Pérez RDCS Procedure CPT: Indications: lv function, aflutter Cardiac Hx: Technical Quality: Fair Contrast 1: Total Dose (mL): Contrast 2: Total Dose (mL): MEASUREMENTS (Male / Female) Normal Values 2D ECHO LV Diastolic Diameter PLAX 4.4 cm 4.2 - 5.9 / 3.9 - 5.3 cm LV Systolic Diameter PLAX 2.4 cm IVS Diastolic Thickness 1.0 cm 0.6 - 1.0 / 0.6 - 0.9 cm LVPW Diastolic Thickness 1.1 cm 0.6 - 1.0 / 0.6 - 0.9 cm LV Relative Wall Thickness 0.5 RV Internal Dim ED PLAX 2.2 cm LA Systolic Diameter LX 4.3 cm 3.0 - 4.0 / 2.7 - 3.8 cm LV Diastolic Volume MOD BP 33.0 cm??? 67 - 155 / 56 - 104 cm??? LV Systolic Volume MOD BP 14.5 cm??? 22 - 58 / 19 - 49 cm??? LV Ejection Fraction MOD BP 56.0 % >= 55 % LV Cardiac Index MOD BP 1434.2 cm???/min???m??? LV Diastolic Volume MOD 4C 35.1 cm??? LV Systolic Volume MOD 4C 14.5 cm??? LV Ejection Fraction MOD 4C 58.8 % LV Cardiac Index MOD 4C 1598.1 cm???/min???m??? LV Diastolic Length 4C 5.7 cm LV Systolic Length 4C 5.7 cm LV Diastolic Volume MOD 2C 30.1 cm??? LV Systolic Volume MOD 2C 13.9 cm??? LV Ejection Fraction MOD 2C 53.7 % LV Cardiac Index MOD 2C 1253.3 cm???/min???m??? LV Diastolic Length 2C 6.1 cm LV Systolic Length 2C 5.0 cm M-MODE Aortic Root Diameter MM 2.8 cm AV Cusp Separation MM 1.6 cm DOPPLER AV Peak Velocity 80.8 cm/s AV Peak Gradient 2.6 mmHg AI Peak Velocity 247.1 cm/s AI Peak Gradient 24.4 mmHg AI Pressure Half Time 407.1 ms MV Area PHT 10.8 cm??? TR Peak Velocity 229.2 cm/s TR Peak Gradient 21.0 mmHg Right Ventricular Systolic Press 31.0 mmHg FINDINGS Left Ventricle Left ventricular ejection fraction is estimated at 50-55 %. Left ventricular cavity size normal. Mildly increased septal wall thickness. Mildly increased posterior wall thickness. Right Ventricle Normal right ventricular size and function. Right ventricular systolic pressure within normal limits. Right Atrium Normal right atrial size. No right atrial thrombus or mass seen. Left Atrium Moderately increased left atrial diameter. No left atrial thrombus or mass present. Mitral Valve Mitral valve thickened. Mitral annular calcification. No mitral stenosis, regurgitation or prolapse. Aortic Valve Trileaflet aortic valve. Aortic valve sclerosis. Mild aortic regurgitation. Tricuspid Valve Structurally normal tricuspid valve. Mild tricuspid regurgitation. Pulmonic Valve Structurally normal pulmonic valve. Trace pulmonic regurgitation. Pericardium No pericardial or pleural effusion. Aorta Normal size aortic root and proximal ascending aorta. CONCLUSIONS Normal LV function Previewed by: Dr. Ric Mistry MD (Electronically Signed) Final Date: 13 July 2024 17:04
[2024-07-13] MEDS: FERROUS SULFATE 325 MG TAB PO SCH (19:57)
[2024-07-13] MEDS: MELATONIN 3 MG TABLET PO SCH (19:57)
[2024-07-13] MEDS: NYSTATIN 100,000 UNIT/GM POWD 15 GM TOPICAL SCH (19:58)
[2024-07-13] MEDS: MONTELUKAST 10 MG TAB PO SCH (19:58)
[2024-07-13] MEDS: ONDANSETRON 4 MG/2 ML VIAL IVP PRN (20:36)
[2024-07-13] MEDS: SYMBICORT 160-4.5 MCG INHALER INHALATION SCH (21:36)
--- NOTE | 2024-07-14 06:33 | P.HPIM ---
History of Present Illness H&P Date: 07/13/24 This is a pleasant 83-year-old female who presented to the emergency department from PCPs office for having an elevated heart rate. Patient follows with Dr. Rachell Watt in the outpatient setting with a past medical history of atrial fibrillation, asthma/COPD, CVA, GERD, hypertension, rheumatoid arthritis, macular degeneration and legally blind, migraines, thyroid disorder. Patient does have history of atrial fibrillation although has been rate controlled and maintained on Eliquis. Patient reports she has been having upper respiratory symptoms including a cough and congestion and was recently prescribed doxycycline and a steroid taper and reports has been sick for over 10 days. Labs reviewed and on admission had a mildly elevated white count of 13 although likely reactive due to recent steroid use, hemoglobin is stable at 14.6, platelets 352, sodium 141 with a potassium of 4.2, BUN is 24 and creatinine 1.57. BNP elevated at 8470 and troponins x 3 were negative. Patient was admitted for atrial fibrillation with RVR for cardiology on consult. Patient seen and evaluated by cardiology early this morning planning on cardioversion possibly tomorrow. REVIEW OF SYSTEMS: CONSTITUTIONAL: No fever, no malaise, no fatigue. HEENT: No recent visual problems or hearing problems. Denied any sore throat. CARDIOVASCULAR: No chest pain, orthopnea, PND, no palpitations, no syncope. PULMONARY: Reports occasional shortness of breath, reports cough with congestion, no hemoptysis. GASTROINTESTINAL: No diarrhea, no nausea, no vomiting, no abdominal pain. NEUROLOGICAL: No headaches, no weakness, no numbness. HEMATOLOGICAL: Denies any bleeding or petechiae. GENITOURINARY: Denies any burning micturition, frequency, or urgency. MUSCULOSKELETAL/RHEUMATOLOGICAL: Denies any joint pain, swelling, or any muscle pain. ENDOCRINE: Denies any polyuria or polydipsia. The rest of the 14-point review of systems is negative. PHYSICAL EXAMINATION: GENERAL: The patient is alert and oriented x3, not in any acute distress. Well developed, elderly appearing, obese, pale HEENT: Pupils are round and equally reacting to light. EOMI. No scleral icterus. No conjunctival pallor. Normocephalic, atraumatic. No pharyngeal erythema. No thyromegaly. CARDIOVASCULAR: S1 and S2 muffled irregular PULMONARY: Diminished breath sounds bilaterally with a few scattered rhonchi noted. No expiratory wheezing noted. ABDOMEN: Soft, obese nontender, nondistended, normoactive bowel sounds. No palpable organomegaly. MUSCULOSKELETAL: No joint swelling or deformity. EXTREMITIES: No cyanosis, clubbing, or pedal edema. NEUROLOGICAL: Gross neurological examination did not reveal any focal deficits. SKIN: No rashes. Pale, dry skin Assessment: Atrial fibrillation with RVR, scheduled to undergo cardioversion on 07/14/2024 Paroxysmal atrial fibrillation history maintained on Eliquis Acute kidney injury, secondary to dehydration and not feeling very well over the last few weeks with decreased oral intake Elevated BNP, echo ordered and pending History of recent bronchitis and upper respiratory infection, procalcitonin is normal and will hold off on any further antibiotics. Patient reports to rece ntly finishing doxycycline and steroid taper History of hypertension History of hypothyroidism Obesity with a BMI 33.2 History of asthma/COPD, not in exacerbation History of CVA GERD History of rheumatoid arthritis History of macular degeneration bilaterally and legally blind GI prophylaxis DVT prophylaxis Full code Plan: Patient admitted for atrial fibrillation with RVR and being evaluated by cardiology currently on Cardize drip. Plan is for cardioversion was tentatively scheduled for today although no OR availability and will be rescheduled for 07/14/2024. N.p.o. at midnight Medications reviewed and resumed as appropriate Kidney functions elevated and have worsened at 1.8 today. Patient clinically appears dry although BNP was 8000, will follow-up on repeat labs and adjust medications accordingly. Procalcitonin was obtained and within normal limits and will hold off on antibiotics for now. Patient just completed a course of steroids and doxycycline per PCP with concerns of upper respiratory infection Await cardiology intervention and clearance from cardiology for discharge The impression and plan of care has been dictated by Nanette Leung, Nurse Practitioner as directed. MD Len I have performed a history and examination and MDM of this patient, discussed the same with the dictator, and agree with the dictator's assessment and plan as written ,documented as a scribe. Based on total visit time, I have performed more than 50% of the visit. Comment Past Medical History Past Medical History: Atrial Fibrillation, Asthma, COPD, CVA/TIA, Eye Disorder, GERD/Reflux, Hypertension, Rheumatoid Arthritis (RA), Thyroid Disorder Additional Past Medical History / Comment(s): Macular degeneration bilaterally- legally blind, osteoporosis, migraines, hypothyroid History of Any Multi-Drug Resistant Organisms: ESBL Date of last positivie culture/infection: 06/05/18 MDRO Source:: esbl urine Past Surgical History: Appendectomy, Cholecystectomy, Hysterectomy, Orthopedic Surgery, Tonsillectomy Additional Past Surgical History / Comment(s): D&C, colonoscopy, left knee scope, right arm ORIF. Past Anesthesia/Blood Transfusion Reactions: Motion Sickness Additional Past Anesthesia/Blood Transfusion Reaction / Comment(s): severe motion sickness Past Psychological History: No Psychological Hx Reported Smoking Status: Former smoker Past Alcohol Use History: None Reported Additional Past Alcohol Use History / Comment(s): . Past Drug Use History: None Reported - Past Family History Mother Additional Family Medical History / Comment(s): Pt states mother had severe migraines and at the age of 43yrs while hospitalized with severe migraine but does not know cause of . Father Family Medical History: Myocardial Infarction (CO) Additional Family Medical History / Comment(s): Father of a CO at the age of 54yrs. Family Additional Family Medical History / Comment(s): Patient denies any history of coronary artery disease Medications and Allergies Home Medications Medication Instructions Recorded Confirmed Type Folic Acid 1 mg PO DAILY 06/05/18 07/12/24 History Montelukast [Singulair] 10 mg PO HS 06/05/18 07/12/24 History Apixaban [Eliquis] 5 mg PO BID tab 06/10/18 07/12/24 Rx Albuterol Inhaler [Ventolin Hfa 2 puff INHALATION RT-Q6H PRN 03/14/22 07/12/24 History Inhaler] Cholecalciferol [Vitamin D3 (25 50 mcg PO DAILY 03/14/22 07/12/24 History Mcg = 1000 Iu)] Ferrous Sulfate [Iron (65 MG 325 mg PO BID 03/14/22 07/12/24 History Elemental)] Levothyroxine Sodium [Synthroid] 25 mcg PO DAILY 03/14/22 07/12/24 History Aspirin 81 mg PO DAILY 10 Days #10 tab 03/23/22 07/12/24 Rx Leflunomide [Arava] 10 mg PO DAILY 11/24/22 07/12/24 History Melatonin 3 mg PO HS 11/24/22 07/12/24 History Budesonide/Formoterol Fumarate 2 puff INHALATION RT-BID 07/12/24 07/12/24 History [Symbicort 160-4.5 Mcg Inhaler] Carboxymethylcellulose Sodium 1 drop BOTH EYES DAILY 07/12/24 07/12/24 History [Refresh Tears] Cyanocobalamin (Vitamin B-12) 1,000 mcg PO DAILY 07/12/24 07/12/24 History [Vitamin B-12] Doxycycline Hyclate 100 mg PO BID 07/12/24 07/12/24 History Rimegepant Sulfate [Nurtec Odt] 75 mg PO DAILY PRN 07/12/24 07/12/24 History bisacodyL [Correctol] 5 mg PO DAILY PRN 07/12/24 07/12/24 History lisinopriL [Zestril] 10 mg PO DAILY 07/12/24 07/12/24 History predniSONE [Deltasone] See Taper PO DAILY 07/12/24 07/12/24 History Allergies Allergy/AdvReac Type Severity Reaction Status Date / Time adhesive tape Allergy Unknown Verified 07/12/24 18:48 ciprofloxacin [From Cipro] Allergy Unknown Verified 07/12/24 18:48 epinephrine Allergy Unknown Verified 07/12/24 18:48 latex Allergy Rash/Hives Verified 07/12/24 18:48 Penicillins Allergy Unknown Verified 07/12/24 18:48 povidone-iodine Allergy Unknown Verified 07/12/24 18:48 [From Betadine] soap [From Betadine] Allergy Unknown Verified 07/12/24 18:48 Sulfa (Sulfonamide Allergy Unknown Verified 07/12/24 18:48 Antibiotics) Tetanus Vaccines and Toxoid Allergy Unknown Verified 07/12/24 18:48 amitriptyline [From Elavil] AdvReac Confusion Verified 07/12/24 18:48 Physical Exam Vitals: Vital Signs Temp Pulse Pulse Resp BP BP Pulse Ox 07/13/24 08:22 131 H 18 07/13/24 08:13 133 H 18 98 07/13/24 08:00 97.1 F L 133 H 20 118/74 95 07/13/24 03:25 98.1 F 120 H 16 110/68 96 07/12/24 23:45 98.2 F 111 H 18 131/98 95 07/12/24 23:14 128 H 16 129/87 94 L 07/12/24 22:45 97.8 F 126 H 20 123/92 95 07/12/24 20:00 140 H 5 L 110/87 94 L 07/12/24 17:54 135 H 18 146/74 93 L 07/12/24 15:42 135 H 20 119/83 96 07/12/24 15:34 138 H 07/12/24 15:26 140 H 18 122/69 100 07/12/24 15:22 137 H 07/12/24 14:50 140 H 20 110/76 96 07/12/24 14:01 20 07/12/24 13:58 97.9 F 142 H 20 117/77 97 Intake and Output 07/12/24 07/13/24 07/13/24 22:59 06:59 14:59 Intake Total 77.416 47.584 358 Output Total 400 Balance 77.416 -352.416 358 Intake: Intake, IV Titration 77.416 47.584 Amount Diltiazem 125 mg In 77.416 47.584 Sodium Chloride 0.9% 100 ml @ 5 MG/HR 5 mls/hr IV .Q24H [facility] Rx#:[id number] Oral 358 Output: Urine 400 Other: Voiding Method External Catheter # Voids 1 Weight 69.5 kg Results CBC & Chem 7: 07/12/24 14:21 07/13/24 10:51 Labs: Abnormal Lab Results - Last 24 Hours (Table) 07/12/24 07/12/24 Range/Units 14:21 16:10 WBC 13.0 H (3.8-10.6) k/uL Hct 47.1 H (34.0-46.0) % RDW 23.4 H (11.5-15.5) % Neutrophils # 9.5 H (1.3-7.7) k/uL Chloride 110 H (98-107) mmol/L BUN 24 H (7-17) mg/dL Creatinine 1.57 H (0.52-1.04) mg/dL Glucose 104 H (74-99) mg/dL Thrombosis Risk Factor Assmnt - DVT/VTE Prophylaxis DVT/VTE Prophylaxis: Pharmacologic Prophylaxis ordered - Choose All That Apply Each Factor Represents 1 point: Abnormal pulmonary function (COPD), Obesity (BMI >25) Each Risk Factor Represents 3 Points: Age 75 years or older Thrombosis Risk Factor Assessment Total Risk Factor Score: 5 Thrombosis Risk Factor Assessment Level: High Risk Assessment and Plan Time with Patient: Greater than 30
--- NOTE | 2024-07-14 06:52 | P.PN ---
Subjective Progress Note Date: 07/14/24 The patient is an 83-year-old female patient with a past medical history significant for paroxysmal atrial fibrillation as well as multiple comorbid conditions including hypertension and dyslipidemia was admitted to the hospital with an upper respiratory infection complicated with atrial flutter/fib with RVR. She is scheduled to undergo a cardioversion later on today. The echo showed normal LV systolic function July 14, 2024 The patient was seen and evaluated this morning. She is in atrial fibrillation with RVR. No symptoms of chest pain or chest discomfort and no shortness of breath at this point. She still having the heart racing/fluttering which she is on oral anticoagulation. The plan is to proceed with a cardioversion later on today. Examination is remarkable for irregular rhythm with a fast heart rate and clear breathing sounds bilaterally and no edema was noted Assessment Upper respiratory infection A-fib with RVR in somebody with paroxysmal atrial fibrillation Multiple comorbid conditions Plan Continue current dose of oral anticoagulation Proceed with a cardioversion later on today Objective - Vital Signs Vital signs: Vital Signs Temp 98.1 F 07/14/24 03:00 Pulse 127 H 07/14/24 03:00 Resp 20 07/14/24 03:00 BP 133/87 07/14/24 03:00 Pulse Ox 94 L 07/14/24 03:00 FiO2 Intake & Output 07/13/24 07/13/24 07/14/24 06:59 18:59 06:59 Intake Total 121.917 523 116.5 Output Total 400 650 Balance -278.083 523 -533.5 Weight 69.5 kg 71.3 kg Intake: Intake, IV Titration 121.917 47 116.5 Amount Diltiazem 125 mg In 121.917 47 116.5 Sodium Chloride 0.9% 100 ml @ 5 MG/HR 5 mls/hr IV .Q24H [facility] Rx#:[id number] Oral 476 Output: Urine 400 650 Other: Voiding Method External Catheter External Catheter External Catheter # Voids 1 2 - Labs CBC & Chem 7: 07/12/24 14:21 07/13/24 10:51 Labs: Abnormal Lab Results - Last 24 Hours (Table) 07/13/24 Range/Units 10:51 Chloride 109 H (98-107) mmol/L Carbon Dioxide 20 L (22-30) mmol/L BUN 42 H (7-17) mg/dL Creatinine 1.85 H (0.52-1.04) mg/dL Glucose 160 H (74-99) mg/dL
[2024-07-14 07:53] LABS: African American GFR (CKD) 46 (>60 ml/min/1.73 sqM); Anion Gap 10 mmol/L; Blood Urea Nitrogen 50 mg/dL (7-17); Calcium 8.6 mg/dL (8.4-10.2); Carbon Dioxide 17 mmol/L (22-30); Chloride 110 mmol/L (98-107); Glucose 150 mg/dL (74-99); Non-African American GFR(CKD) 40 (>60 ml/min/1.73 sqM); Potassium 4.8 mmol/L (3.5-5.1); Sodium 137 mmol/L (137-145)
[2024-07-14] MEDS: FOLIC ACID 1 MG TAB PO SCH (07:58)
[2024-07-14] MEDS: CYANOCOBALAMIN 500 MCG TAB PO SCH (07:58)
[2024-07-14] MEDS: CHOLECALCIFEROL 25 MCG (1000 IU) TABLET PO SCH (08:00)
[2024-07-14] MEDS: ASPIRIN 81 MG PO SCH (08:01)
[2024-07-14] MEDS: IV FLUID CONTINUATION 1,000 ML IV ONE (08:37)
[2024-07-14] MEDS ORDERED: PROPOFOL 10 MG/ML 20 ML VIAL IV ONE (08:55)
--- NOTE | 2024-07-14 13:17 | P.PCN ---
Date of Procedure: 07/14/24 Operative Findings: Cardioversion Report Performing physician David Pedroza M.D. Procedure performed Successful cardioversion of atrial fibrillation to normal sinus mechanism using 120 J at first attempt Indication Symptomatic atrial fibrillation Complication None Level of sedation The procedure was performed under deep sedation using propofol with LEAD TECHNICAL WRITER in the room Procedure description After obtaining an informed consent the patient was brought to the recovery room. Sedation was introduced using propofol with LEAD TECHNICAL WRITER in the room. Subsequently the patient cardioverted from atrial fibrillation to normal sinus mechanism using 200 J and first attempt Conclusion Successful cardioversion of atrial fibrillation to normal sinus mechanism using 200 J Postprocedure management Continue the current medical regimen Continue oral anticoagulation Follow-up with the patient
--- NOTE | 2024-07-14 13:27 | P.PN ---
Subjective Progress Note Date: 07/14/24 This is a pleasant 83-year-old female who presented to the emergency department from PCPs office for having an elevated heart rate. Patient follows with Dr. Rachell Watt in the outpatient setting with a past medical history of atrial fibrillation, asthma/COPD, CVA, GERD, hypertension, rheumatoid arthritis, m acular degeneration and legally blind, migraines, thyroid disorder. Patient does have history of atrial fibrillation although has been rate controlled and maintained on Eliquis. Patient reports she has been having upper respiratory symptoms including a cough and congestion and was recently prescribed doxycycline and a steroid taper and reports has been sick for over 10 days. Labs reviewed and on admission had a mildly elevated white count of 13 although likely reactive due to recent steroid use, hemoglobin is stable at 14.6, platelets 352, sodium 141 with a potassium of 4.2, BUN is 24 and creatinine 1.57. BNP elevated at 8470 and troponins x 3 were negative. Patient was admitted for atrial fibrillation with RVR for cardiology on consult. Patient seen and evaluated by cardiology early this morning planning on cardioversion possibly tomorrow. 07/14/2024 This is a pleasant 83-year-old female she came in for atrial fibrillation with rapid ventricular rate was continued on IV Cardizem. Patient had an echocardiogram completed today which reveals an EF of 50 to 55% with no LV throm bus. Patient subsequently underwent cardioversion and is now in a controlled normal sinus rhythm. Plan will be for patient to be monitored overnight and discharged home tomorrow. REVIEW OF SYSTEMS: CONSTITUTIONAL: No fever, no malaise, no fatigue. HEENT: No recent visual problems or hearing problems. Denied any sore throat. CARDIOVASCULAR: No chest pain, orthopnea, PND, no palpitations, no syncope. PULMONARY: Reports occasional shortness of breath, reports cough with congestion, no hemoptysis. GASTROINTESTINAL: No diarrhea, no nausea, no vomiting, no abdominal pain. NEUROLOGICAL: No headaches, no weakness, no numbness. PHYSICAL EXAMINATION: GENERAL: The patient is alert and oriented x3, not in any acute distress. Well developed, elderly appearing, obese, pale HEENT: Pupils are round and equally reacting to light. EOMI. No scleral icterus. No conjunctival pallor. Normocephalic, atraumatic. No pharyngeal erythema. No thyromegaly. CARDIOVASCULAR: S1 and S2 muffled irregular PULMONARY: Diminished breath sounds bilaterally with a few scattered rhonchi noted. No expiratory wheezing noted. ABDOMEN: Soft, obese nontender, nondistended, normoactive bowel sounds. No palpable organomegaly. MUSCULOSKELETAL: No joint swelling or deformity. EXTREMITIES: No cyanosis, clubbing, or pedal edema. NEUROLOGICAL: Gross neurological examination did not reveal any focal deficits. SKIN: No rashes. Pale, dry skin Assessment: Atrial fibrillation with RVR, scheduled to undergo cardioversion on 07/14/2024 Paroxysmal atrial fibrillation history maintained on Eliquis Acute kidney injury, secondary to dehydration and not feeling very well over the last few weeks with decreased oral intake Elevated BNP, echo ordered and pending History of recent bronchitis and upper respiratory infection, procalcitonin is normal and will hold off on any further antibiotics. Patient reports to rec ently finishing doxycycline and steroid taper History of hypertension History of hypothyroidism Obesity with a BMI 33.2 History of asthma/COPD, not in exacerbation History of CVA GERD History of rheumatoid arthritis History of macular degeneration bilaterally and legally blind GI prophylaxis DVT prophylaxis Full code Plan: Patient admitted for atrial fibrillation with RVR and being evaluated by cardiology currently on Cardize drip. Plan is for cardioversion was tentatively scheduled for today although no OR availability and will be rescheduled for 07/14/2024. N.p.o. at midnight Medications reviewed and resumed as appropriate Kidney functions elevated and have worsened at 1.8 today. Patient clinically appears dry although BNP was 8000, will follow-up on repeat labs and adjust medications accordingly. Procalcitonin was obtained and within normal limits and will hold off on antibiotics for now. Patient just completed a course of steroids and doxycycline per PCP with concerns of upper respiratory infection Await cardiology intervention and clearance from cardiology for discharge The impression and plan of care has been dictated by Noa Michel Nurse Practitioner as directed. Dr. Tahir MD I have performed a history and physical examination and medical decision making of this patient, discussed the same with the dictator, and agree with the dictators assessment and plan as written, documented as a scribe. Based on total visit time, I have performed more than 50% of this visit. Objective - Vital Signs Vital signs: Vital Signs Temp 97 F L 07/14/24 11:19 Pulse 64 07/14/24 12:03 Resp 14 07/14/24 11:19 BP 106/74 07/14/24 11:19 Pulse Ox 97 07/14/24 11:19 FiO2 Intake & Output 07/13/24 07/14/24 07/14/24 18:59 06:59 18:59 Intake Total 523 116.5 522 Output Total 650 Balance 523 -533.5 522 Weight 71.3 kg Intake: IV 300 Intake, IV Titration 47 116.5 Amount Diltiazem 125 mg In 47 116.5 Sodium Chloride 0.9% 100 ml @ 5 MG/HR 5 mls/hr IV .Q24H [facility] Rx#:[id number] Oral 476 222 Output: Urine 650 Other: Voiding Method External Catheter External Catheter External Catheter # Voids 2 - Labs CBC & Chem 7: 07/12/24 14:21 07/14/24 06:29 Labs: Abnormal Lab Results - Last 24 Hours (Table) 07/14/24 Range/Units 06:29 Chloride 110 H (98-107) mmol/L Carbon Dioxide 17 L (22-30) mmol/L BUN 50 H (7-17) mg/dL Creatinine 1.28 H (0.52-1.04) mg/dL Glucose 150 H (74-99) mg/dL Assessment and Plan Time with Patient: Less than 30
[2024-07-14] MEDS: DILTIAZEM ORAL 30 MG TAB PO SCH (15:35)
--- NOTE | 2024-07-15 06:56 | P.PN ---
Subjective Progress Note Date: 07/15/24 The patient is an 83-year-old female patient with a past medical history significant for paroxysmal atrial fibrillation as well as multiple comorbid conditions including hypertension and dyslipidemia was admitted to the hospital with an upper respiratory infection complicated with atrial flutter/fib with RVR. She is scheduled to undergo a cardioversion later on today. The echo showed normal LV systolic function July 14, 2024 The patient was seen and evaluated this morning. She is in atrial fibrillation with RVR. No symptoms of chest pain or chest discomfort and no shortness of breath at this point. She still having the heart racing/fluttering which she is on oral anticoagulation. The plan is to proceed with a cardioversion later on today. Examination is remarkable for irregular rhythm with a fast heart rate and clear breathing sounds bilaterally and no edema was noted July 15, 2024 The patient was seen and evaluated this morning which she underwent cardioversion yesterday and she has been maintaining normal sinus mechanism. She is asymptomatic and hemodynamically stable. She is on oral anticoagulation. From the cardiovascular standpoint of view, I would continue the current medical regimen and the patient potentially can be discharged home later on today Assessment Upper respiratory infection A-fib with RVR in somebody with paroxysmal atrial fibrillation and currently the patient is in sinus mechanism Status post cardioversion Multiple comorbid conditions Plan Continue the current medical regimen including oral anticoagulation The patient potentially can be discharged home Objective - Vital Signs Vital signs: Vital Signs Temp 97.7 F 07/15/24 04:35 Pulse 79 07/15/24 04:35 Resp 18 07/15/24 04:35 BP 119/73 07/15/24 04:35 Pulse Ox 94 L 07/15/24 04:35 FiO2 Intake & Output 07/14/24 07/14/24 07/15/24 06:59 18:59 05:59 Intake Total 116.5 762 Output Total 650 250 650 Balance -533.5 512 -650 Weight 71.3 kg 71.3 kg Intake: IV 300 Intake, IV Titration 116.5 Amount Diltiazem 125 mg In 116.5 Sodium Chloride 0.9% 100 ml @ 5 MG/HR 5 mls/hr IV .Q24H [facility] Rx#:[id number] Oral 462 Output: Urine 650 250 650 Other: Voiding Method External Catheter External Catheter External Catheter # Voids 1 # Bowel Movements 1 - Labs CBC & Chem 7: 07/12/24 14:21 07/14/24 06:29
[2024-07-15 07:24] VITALS: RESP 14
[2024-07-15 10:35] LABS: African American GFR (CKD) 52 (>60 ml/min/1.73 sqM); Anion Gap 5 mmol/L; Blood Urea Nitrogen 37 mg/dL (7-17); Calcium 8.8 mg/dL (8.4-10.2); Carbon Dioxide 22 mmol/L (22-30); Chloride 111 mmol/L (98-107); Glucose 118 mg/dL (74-99); Non-African American GFR(CKD) 45 (>60 ml/min/1.73 sqM); Potassium 4.4 mmol/L (3.5-5.1); Sodium 138 mmol/L (137-145)
[2024-07-15 11:39] VITALS: BP 144/79; PULSE 64; TEMP 98.1
--- NOTE | 2024-07-15 11:50 | XR ---
EXAMINATION TYPE: XR chest 2V DATE OF EXAM: 07/15/2024 11:26 AM COMPARISON: Chest radiographs from 07/12/2024 CLINICAL INDICATION: Female, 83 years old with history of chest pain, SOB; [facility] TECHNIQUE: XR chest 2V Frontal and lateral views of the chest. FINDINGS: Lungs/Pleura: Prominent interstitial lung markings are seen scattered throughout the lungs. No eviden ce of focal consolidation, pneumothorax or pleural effusion. Pulmonary vascularity: Pulmonary vascular congestion. Heart/mediastinum: Cardiomediastinal silhouette is enlarged and stable. Musculoskeletal: No acute osseous pathology. Other findings: None IMPRESSION: Cardiomegaly and mild pulmonary vascular congestion. Correlate with BNP for congestive heart failure. [facility], , 07/15/2024 11:48 AM
[2024-07-15] MEDS: FUROSEMIDE 10 MG/ML 2 ML VIAL IV ONE (13:23)
--- NOTE | 2024-07-17 13:32 | P.DS ---
Providers Date of admission: 07/12/24 16:22 Attending physician: Marshall Sue MD Consults: 07/12/24 16:02 Consult Physician Urgent Consulting Provider: David Pedroza Consult Reason/Comments: afib Do you want consulting provider notified?: Yes Primary care physician: Rachell Watt MD Hospital Course: Final Diagnosis Atrial fibrillation with RVR, scheduled to undergo cardioversion on 07/14/2024 Paroxysmal atrial fibrillation history maintained on Eliquis Acute kidney injury, secondary to dehydration and not feeling very well over the last few weeks with decreased oral intake Elevated BNP, echo ordered and pending History of recent bronchitis and upper respiratory infection, procalcitonin is normal and will hold off on any further antibiotics. Patient reports to recently finishing doxycycline and steroid taper History of hypertension History of hypothyroidism Obesity with a BMI 33.2 History of asthma/COPD, not in exacerbation History of CVA GERD History of rheumatoid arthritis History of macular degeneration bilaterally and legally blind Discharge Disposition Hospital Course Stable for discharge home with overall guarded prognosis requires close follow- up with her mathematics instructor in the office. Patient was cardioverted remains in normal sinus rhythm will discharge on a combination of oral metoprolol and oral Cardizem. Patient is already anticoagulated with Eliquis which will continue on discharge. Patient has evidence of excoriation in her abdominal folds and will continue with Mycostatin powder on discharge. Follow-up with her PCP Dr. Rachell Watt in 1 to 2 days. This is a pleasant 83-year-old female who presented to the emergency department from PCPs office for having an elevated heart rate. Patient follows with Dr. Rachell Watt in the outpatient setting with a past medical history of atrial fibrillation, asthma/COPD, CVA, GERD, hypertension, rheumatoid arthritis, macular degeneration and legally blind, migraines, thyroid disorder. Patient does have history of atrial fibrillation although has been rate controlled and maintained on Eliquis. Patient reports she has been having upper respiratory symptoms including a cough and congestion and was recently prescribed doxycycline and a steroid taper and reports has been sick for over 10 days. Labs reviewed and on admission had a mildly elevated white count of 13 although likely reactive due to recent steroid use, hemoglobin is stable at 14.6, platelets 352, sodium 141 with a potassium of 4.2, BUN is 24 and creatinine 1.57. BNP elevated at 8470 and troponins x 3 were negative. Patient was admitted for atrial fibrillation with RVR for cardiology on consult. Patient seen and evaluated by cardiology goal for cardioversion. Patient had an echocardiogram completed today which reveals an EF of 50 to 55% with no LV thrombus. Patient subsequently underwent cardioversion and is now in a controlled normal sinus rhythm. He went down to 37 creatinine of 1.14. Procalcitonin level is 0.10. Viral panel negative. Chest x-ray was completed prior to discharge showing cardiomegaly and mild pulmonary vascular congestion correlate with BNP for congestive heart failure. Patient was given a one-time dose of IV Lasix prior to discharge she is adamant on going home today. Please see medication reconciliation for a list of current medications. Thank you for allowing us to participate in the care of this patient. The impression and plan of care has been dictated by Noa Michel, Nurse Practitioner as directed. Dr. Tahir MD I have performed a history and physical examination and medical decision making of this patient, discussed the same with the dictator, and agree with the dictators assessment and plan as written, documented as a scribe. Based on total visit time, I have performed more than 50% of this visit. Patient Condition at Discharge: Stable Plan - Discharge Summary Discharge Rx Participant: No New Discharge Prescriptions: New Diltiazem Oral [Cardizem*] 30 mg PO TID 30 Days #90 tab Nystatin 100,000 Unit/gm Powd [Mycostatin Powder] 1 applic TOPICAL BID #1 each Metoprolol Tartrate [Lopressor] 50 mg PO BID #60 tab Continue Montelukast [Singulair] 10 mg PO HS Folic Acid 1 mg PO DAILY Apixaban [Eliquis] 5 mg PO BID tab Leflunomide [Arava] 10 mg PO DAILY Carboxymethylcellulose Sodium [Refresh Tears] 1 drop BOTH EYES DAILY Cyanocobalamin (Vitamin B-12) [Vitamin B-12] 1,000 mcg PO DAILY Doxycycline Hyclate 100 mg PO BID Rimegepant Sulfate [Nurtec Odt] 75 mg PO DAILY PRN PRN Reason: Migraine Headache bisacodyL [Correctol] 5 mg PO DAILY PRN PRN Reason: Constipation Levothyroxine Sodium [Synthroid] 25 mcg PO DAILY Cholecalciferol [Vitamin D3 (25 Mcg = 1000 Iu)] 50 mcg PO DAILY Albuterol Inhaler [Ventolin Hfa Inhaler] 2 puff INHALATION RT-Q6H PRN PRN Reason: Shortness Of Breath Or Wheezing Ferrous Sulfate [Iron (65 MG Elemental)] 325 mg PO BID Aspirin 81 mg PO DAILY 10 Days #10 tab Melatonin 3 mg PO HS Budesonide/Formoterol Fumarate [Symbicort 160-4.5 Mcg Inhaler] 2 puff INHALATION RT-BID predniSONE [Deltasone] See Taper PO DAILY Discontinued lisinopriL [Zestril] 10 mg PO DAILY Discharge Medication List Folic Acid 1 mg PO DAILY 06/05/18 [History] Montelukast [Singulair] 10 mg PO HS 06/05/18 [History] Apixaban [Eliquis] 5 mg PO BID tab 06/10/18 [Rx] Albuterol Inhaler [Ventolin Hfa Inhaler] 2 puff INHALATION RT-Q6H PRN 03/14/22 [History] Cholecalciferol [Vitamin D3 (25 Mcg = 1000 Iu)] 50 mcg PO DAILY 03/14/22 [History] Ferrous Sulfate [Iron (65 MG Elemental)] 325 mg PO BID 03/14/22 [History] Levothyroxine Sodium [Synthroid] 25 mcg PO DAILY 03/14/22 [History] Aspirin 81 mg PO DAILY 10 Days #10 tab 03/23/22 [Rx] Leflunomide [Arava] 10 mg PO DAILY 11/24/22 [History] Melatonin 3 mg PO HS 11/24/22 [History] Budesonide/Formoterol Fumarate [Symbicort 160-4.5 Mcg Inhaler] 2 puff INHALATION RT-BID 07/12/24 [History] Carboxymethylcellulose Sodium [Refresh Tears] 1 drop BOTH EYES DAILY 07/12/24 [History] Cyanocobalamin (Vitamin B-12) [Vitamin B-12] 1,000 mcg PO DAILY 07/12/24 [History] Doxycycline Hyclate 100 mg PO BID 07/12/24 [History] Rimegepant Sulfate [Nurtec Odt] 75 mg PO DAILY PRN 07/12/24 [History] bisacodyL [Correctol] 5 mg PO DAILY PRN 07/12/24 [History] predniSONE [Deltasone] See Taper PO DAILY 07/12/24 [History] Diltiazem Oral [Cardizem*] 30 mg PO TID 30 Days #90 tab 07/15/24 [Rx] Metoprolol Tartrate [Lopressor] 50 mg PO BID #60 tab 07/15/24 [Rx] Nystatin 100,000 Unit/gm Powd [Mycostatin Powder] 1 applic TOPICAL BID #1 each 07/15/24 [Rx] Follow up Appointment(s)/Referral(s): Rachell Watt MD [Primary Care Provider] - 1-2 days (Patient to make based on schedule) Ambulatory/Diagnostic Orders: Basic Metabolic Panel [LAB.AMB] Location: None Selected Complete Blood Count w/diff [LAB.AMB] Time Frame: 3 Days, Location: None Selected Patient Instructions/Handouts: A-fib (Atrial Fibrillation) (IP), COPD (Chronic Obstructive Pulmonary Disease) (IP) Activity/Diet/Wound Care/Special Instructions: [facility] Make an appointment with your usual mathematics instructor for the next week Repeat blood work in 2 to 3 days to monitor kidney function Discharge Disposition: HOME SELF-CARE
== END 2024-07-15 14:47 | disposition home or self-care (01) ==
LOC: EC 13:53 → 3SCARD 16:22
PROVIDERS: ADMIT Internal Medicine; ATTEND Internal Medicine
DX: I48.0 Paroxysmal atrial fibrillation (principal); I48.3 Typical atrial flutter; N17.9 Acute kidney failure, unspecified; E03.9 Hypothyroidism, unspecified; E66.9 Obesity, unspecified; Z68.33 Body mass index [BMI] 33.0-33.9, adult; E78.5 Hyperlipidemia, unspecified; E86.0 Dehydration; H54.8 Legal blindness, as defined in USA; I11.0 Hypertensive heart disease with heart failure; I50.9 Heart failure, unspecified; K21.9 Gastro-esophageal reflux disease without esophagitis; M06.9 Rheumatoid arthritis, unspecified; M81.0 Age-related osteoporosis without current pathological fracture; G43.909 Migraine, unspecified, not intractable, without status migrainosus; J44.89 Other specified chronic obstructive pulmonary disease; Z79.01 Long term (current) use of anticoagulants; Z79.51 Long term (current) use of inhaled steroids; Z79.82 Long term (current) use of aspirin; Z79.890 Hormone replacement therapy; Z86.73 Personal history of transient ischemic attack (TIA), and cerebral infarction without residual deficits; Z87.891 Personal history of nicotine dependence; Z79.899 Other long term (current) drug therapy; T38.0X5A Adverse effect of glucocorticoids and synthetic analogues, initial encounter; Z88.0 Allergy status to penicillin; Z88.2 Allergy status to sulfonamides; Z91.040 Latex allergy status; Z88.7 Allergy status to serum and vaccine; Z88.8 Allergy status to other drugs, medicaments and biological substances; Z91.048 Other nonmedicinal substance allergy status; Z82.49 Family history of ischemic heart disease and other diseases of the circulatory system
CPT/HCPCS: 96366 ×3; 96375 ×2; 96376; 96365; 99291; 36415; 94640 ×7; 94760 ×2; 93005; 93306; 92960; 83880; 80053; 80048 ×3; 83605; 83735; 84484; 85025; 85610; 85730; 84145; 87636; 71046 ×2; G0378 ×4; J1940 ×2; J2405; J2704; J2919

== ENCOUNTER 2024-08-25 09:21 | Inpatient (IN) | payer MEDICARE ==
--- NOTE | 2024-08-25 10:29 | XR ---
EXAMINATION TYPE: XR chest 2V DATE OF EXAM: 08/25/2024 10:02 AM COMPARISON: Chest radiographs from 07/15/2024 CLINICAL INDICATION: Female, 83 years old with history of difficulty breathing; [facility] TECHNIQUE: XR chest 2V Frontal and lateral views of the chest. FINDINGS: Lungs/Pleura: Prominent interstitial lung markings are seen scattered throughout the lungs. No eviden ce of focal consolidation, pneumothorax or pleural effusion. Pulmonary vascularity: Unremarkable. Heart/mediastinum: Cardiomediastinal silhouette is unremarkable. Musculoskeletal: No acute osseous pathology. IMPRESSION: Chronic changes without acute pulmonary process. No significant change from prior. [facility], , 08/25/2024 10:26 AM
--- NOTE | 2024-08-25 10:38 | ED ---
SOB HPI - General Chief Complaint: Shortness of Breath Stated Complaint: SOB Time Seen by Provider: 08/25/24 09:30 Source: patient, EMS Mode of arrival: EMS Limitations: no limitations - History of Present Illness Initial Comments: 83-year-old female who presents to the emergency department reporting chest pain, shortness of breath. She does have a history of A-fib, COPD and heart failure. Reports that she woke this morning and was significantly short of breath. She does not wear any oxygen at home. The chest pain is described as a tight pressure sensation in her chest. She denies fevers. Admits to a chronic cough without sputum production. No ripping or tearing station to her back. No history of DVT or PE. No calf pain but does admit to bilateral lower extremity swelling. Patient denies history of NE or stent. She did not take into breathing treatment this morning. She denies any additional symptoms to include abdominal pain, nausea, vomiting. No other alleviating, precipitating or modifying factors - Related Data Home Medications Medication Instructions Recorded Confirmed Folic Acid 1 mg PO DAILY 06/05/18 07/12/24 Montelukast [Singulair] 10 mg PO HS 06/05/18 07/12/24 Albuterol Inhaler [Ventolin Hfa 2 puff INHALATION RT-Q6H PRN 03/14/22 07/12/24 Inhaler] Cholecalciferol [Vitamin D3 (25 50 mcg PO DAILY 03/14/22 07/12/24 Mcg = 1000 Iu)] Ferrous Sulfate [Iron (65 MG 325 mg PO BID 03/14/22 07/12/24 Elemental)] Levothyroxine Sodium [Synthroid] 25 mcg PO DAILY 03/14/22 07/12/24 Leflunomide [Arava] 10 mg PO DAILY 11/24/22 07/12/24 Melatonin 3 mg PO HS 11/24/22 07/12/24 Budesonide/Formoterol Fumarate 2 puff INHALATION RT-BID 07/12/24 07/12/24 [Symbicort 160-4.5 Mcg Inhaler] Carboxymethylcellulose Sodium 1 drop BOTH EYES DAILY 07/12/24 07/12/24 [Refresh Tears] Cyanocobalamin (Vitamin B-12) 1,000 mcg PO DAILY 07/12/24 07/12/24 [Vitamin B-12] Doxycycline Hyclate 100 mg PO BID 07/12/24 07/12/24 Rimegepant Sulfate [Nurtec Odt] 75 mg PO DAILY PRN 07/12/24 07/12/24 bisacodyL [Correctol] 5 mg PO DAILY PRN 07/12/24 07/12/24 predniSONE [Deltasone] See Taper PO DAILY 07/12/24 07/12/24 Previous Rx's Medication Instructions Recorded Apixaban [Eliquis] 5 mg PO BID tab 06/10/18 Aspirin 81 mg PO DAILY 10 Days #10 tab 03/23/22 Diltiazem Oral [Cardizem*] 30 mg PO TID 30 Days #90 tab 07/15/24 Metoprolol Tartrate [Lopressor] 50 mg PO BID #60 tab 07/15/24 Nystatin 100,000 Unit/gm Powd 1 applic TOPICAL BID #1 each 07/15/24 [Mycostatin Powder] Allergies Allergy/AdvReac Type Severity Reaction Status Date / Time adhesive tape Allergy Unknown Verified 08/25/24 09:35 ciprofloxacin [From Cipro] Allergy Unknown Verified 08/25/24 09:35 epinephrine Allergy Unknown Verified 08/25/24 09:35 latex Allergy Rash/Hives Verified 08/25/24 09:35 Penicillins Allergy Unknown Verified 08/25/24 09:35 povidone-iodine Allergy Unknown Verified 08/25/24 09:35 [From Betadine] soap [From Betadine] Allergy Unknown Verified 08/25/24 09:35 Sulfa (Sulfonamide Allergy Unknown Verified 08/25/24 09:35 Antibiotics) Tetanus Vaccines and Toxoid Allergy Unknown Verified 08/25/24 09:35 amitriptyline [From Elavil] AdvReac Confusion Verified 08/25/24 09:35 Review of Systems ROS Statement: Those systems with pertinent positive or pertinent negative responses have been documented in the HPI. ROS Other: All systems not noted in ROS Statement are negative. Past Medical History Past Medical History: Atrial Fibrillation, Asthma, COPD, CVA/TIA, Eye Disorder, GERD/Reflux, Hypertension, Rheumatoid Arthritis (RA), Thyroid Disorder Additional Past Medical History / Comment(s): Other hx: Macular degeneration bilaterally-legally blind, rheumatoid arthritis in multple joints, osteoporosis, migraines, hypothyroid, urinary incontinence at times. History of Any Multi-Drug Resistant Organisms: ESBL Date of last positivie culture/infection: 06/05/18 MDRO Source:: esbl urine Past Surgical History: Appendectomy, Cholecystectomy, Hysterectomy, Orthopedic Surgery, Tonsillectomy Additional Past Surgical History / Comment(s): D&C, colonoscopy, left knee scope, right arm ORIF. Past Anesthesia/Blood Transfusion Reactions: Motion Sickness Additional Past Anesthesia/Blood Transfusion Reaction / Comment(s): severe motion sickness Past Psychological History: No Psychological Hx Reported Smoking Status: Former smoker Past Alcohol Use History: None Reported Past Drug Use History: None Reported - Past Family History Mother Additional Family Medical History / Comment(s): Pt states mother had severe migraines and at the age of 43yrs while hospitalized with severe migraine but does not know cause of . Father Family Medical History: Myocardial Infarction (NE) Additional Family Medical History / Comment(s): Father of a NE at the age of 54yrs. Family Additional Family Medical History / Comment(s): Patient denies any history of coronary artery disease General Exam Limitations: no limitations General appearance: alert, in no apparent distress Head exam: Present: atraumatic, normocephalic, normal inspection Eye exam: Present: normal appearance, PERRL, EOMI. Absent: scleral icterus, conjunctival injection, periorbital swelling ENT exam: Present: normal exam, mucous membranes moist Neck exam: Present: normal inspection. Absent: tenderness, meningismus, lymphadenopathy Respiratory exam: Present: wheezes, decreased breath sounds. Absent: respiratory distress, rales, rhonchi, stridor Cardiovascular Exam: Present: normal rhythm, tachycardia, normal heart sounds. Absent: systolic murmur, diastolic murmur, rubs, gallop, clicks GI/Abdominal exam: Present: soft, normal bowel sounds. Absent: distended, tenderness, guarding, rebound, rigid Extremities exam: Present: normal inspection, full ROM, normal capillary refill. Absent: tenderness, pedal edema, joint swelling, calf tenderness Back exam: Present: normal inspection Neurological exam: Present: alert, oriented X3, CN II-XII intact Psychiatric exam: Present: normal affect, normal mood Skin exam: Present: warm, dry, intact, normal color. Absent: rash Course Vital Signs 08/25/24 08/25/24 08/25/24 09:23 09:36 12:17 Temperature 97.9 F Pulse Rate 102 H 96 Respiratory 20 20 Rate Blood Pressure 195/93 O2 Sat by Pulse 94 L Oximetry 08/25/24 12:27 Temperature Pulse Rate 93 Respiratory Rate Blood Pressure O2 Sat by Pulse Oximetry Medical Decision Making - Medical Decision Making Was pt. sent in by a medical professional or institution (, PA, GREEN BUILDING ENERGY ENGINEER, urgent care, hospital, or prison...) When possible be specific @ -No Did you speak to anyone other than the patient for history (EMS, parent, family, police, friend...)? What history was obtained from this source @ -Spoke with EMS for history Did you review nursing and triage notes (agree or disagree)? Why? @ -I reviewed and agree with nursing and triage notes Were old charts reviewed (outside hosp., previous admission, EMS record, old EKG, old radiological studies, urgent care reports/EKG's, prison records)? Report findings @ -I reviewed discharge summary from July 15 Differential Diagnosis (chest pain, altered mental status, abdominal pain women, abdominal pain men, vaginal bleeding, weakness, fever, dyspnea, syncope, headache, dizziness, GI bleed, back pain, seizure, CVA, palpatations, mental health, musculoskeletal)? @ -Differential Dyspnea: Coronary syndrome, arrhythmia, tamponade, asthma, COPD, pulmonary embolism, pneumonia, pneumothorax, pulmonary effusion, anaphylaxis, diabetic ketoacidosis, flailed chest, pulmonary contusion, diaphragmatic rupture, anemia, neuromuscular, this is not meant to be an all-inclusive list. EKG interpreted by me (3pts min.). @ -Yes and demonstrates sinus rhythm with rate of 95. ME interval 139. QRS 115. QTc of 437. Inverted T wave with ST depression V2V3 consistent with right bundle branch block X-rays interpreted by me (1pt min.). @ -Yes and demonstrates no acute process CT interpreted by me (1pt min.). @ -None done U/S interpreted by me (1pt. min.). @ -None done What testing was considered but not performed or refused? (CT, X-rays, U/S, labs)? Why? @ -None What meds were considered but not given or refused? Why? @ -None Did you discuss the management of the patient with other professionals (professionals i.e. , PA, GREEN BUILDING ENERGY ENGINEER, lab, RT, psych nurse, social work administrator, hide inspector and sorter, teacher, debt recovery officer, rn case mgr)? Give summary @Spoke with Dr. Sue for admission Was smoking cessation discussed for >3mins.? @ -No Was critical care preformed (if so, how long)? @ -No Were there social determinants of health that impacted care today? How? (Homelessness, low income, unemployed, alcoholism, drug addiction, transportation, low edu. Level, literacy, decrease access to med. care, fpc, rehab)? @ -No Was there de-escalation of care discussed even if they declined (Discuss DNR or withdrawal of care, Hospice)? DNR status @ -No What co-morbidities impacted this encounter? (DM, HTN, Smoking, COPD, CAD, Cancer, CVA, ARF, Chemo, Hep., AIDS, mental health diagnosis, sleep apnea, morbid obesity)? @ -COPD, A-fib Was patient admitted / discharged? Hospital course, mention meds given and route, prescriptions, significant lab abnormalities, going to OR and other pertinent info. @ -Upon arrival patient seen and evaluated in bed 9. Thorough history and physical exam was performed. Patient placed on continuous pulse ox and cardiac monitoring. Twelve-lead EKG is obtained. Laboratory studies are conducted. Patient had been given a breathing treatment by EMS. She does report to some improvement in her symptoms. She continues to be diffusely wheezy. A second breathing treatment is ordered. Chest x-ray was performed. Results are discussed with the patient. I did recommend overnight observation to trend her troponins due to her chest pain. Patient was agreeable to this. Spoke with Dr. Sue for the admission Undiagnosed new problem with uncertain prognosis? @ -No Drug Therapy requiring intensive monitoring for toxicity (Heparin, Nitro, Insulin, Cardizem)? @ -No Were any procedures done? @ -No Diagnosis/symptom? @ -Acute chest pain, acute respiratory insufficiency, COPD exacerbation Acute, or Chronic, or Acute on Chronic? @ -Acute on chronic Uncomplicated (without systemic symptoms) or Complicated (systemic symptoms)? @ -Complicated Side effects of treatment? @ -No Exacerbation, Progression, or Severe Exacerbation? @ -Yes Poses a threat to life or bodily function? How? (Chest pain, USA, NE, pneumonia, PE, COPD, DKA, ARF, appy, cholecystitis, CVA, Diverticulitis, Homicidal, Suicidal, threat to staff... and all critical care pts) @ -No - Lab Data Result diagrams: 08/25/24 09:29 08/25/24 09:29 Lab Results 08/25/24 08/25/24 08/25/24 Range/Units 09:29 09:29 09:29 WBC 10.5 (3.8-10.6) k/uL RBC 4.74 (3.80-5.40) m/uL Hgb 14.0 (11.4-16.0) gm/dL Hct 44.2 (34.0-46.0) % MCV 93.3 (80.0-100.0) fL MCH 29.6 (25.0-35.0) pg MCHC 31.7 (31.0-37.0) g/dL RDW 19.1 H (11.5-15.5) % Plt Count 361 (150-450) k/uL MPV 7.5 Neutrophils % 60 % Lymphocytes % 27 % Monocytes % 7 % Eosinophils % 3 % Basophils % 1 % Neutrophils # 6.3 (1.3-7.7) k/uL Lymphocytes # 2.8 (1.0-4.8) k/uL Monocytes # 0.8 (0-1.0) k/uL Eosinophils # 0.3 (0-0.7) k/uL Basophils # 0.1 (0-0.2) k/uL Hypochromasia Slight Anisocytosis Slight Microcytosis Slight PT 10.1 (10.0-12.5) sec INR 0.9 (<1.2) APTT 24.0 (22.0-30.0) sec Sodium 141 (137-145) mmol/L Potassium 4.3 (3.5-5.1) mmol/L Chloride 108 H (98-107) mmol/L Carbon Dioxide 25 (22-30) mmol/L Anion Gap 8 mmol/L BUN 15 (7-17) mg/dL Creatinine 1.33 H (0.52-1.04) mg/dL Est GFR (CKD-EPI)AfAm 43 (>60 ml/min/1.73 sqM) Est GFR (CKD-EPI)NonAf 38 (>60 ml/min/1.73 sqM) Glucose 111 H (74-99) mg/dL Plasma Lactic Acid Ross (0.7-2.0) mmol/L Calcium 9.8 (8.4-10.2) mg/dL Total Bilirubin 0.4 (0.2-1.3) mg/dL AST 24 (14-36) U/L ALT 14 (4-34) U/L Alkaline Phosphatase 118 (38-126) U/L Troponin I (0.000-0.034) ng/mL NT-Pro-B Natriuret Pep 2070 pg/mL Total Protein 7.5 (6.3-8.2) g/dL Albumin 4.4 (3.5-5.0) g/dL 08/25/24 08/25/24 Range/Units 09:29 09:29 WBC (3.8-10.6) k/uL RBC (3.80-5.40) m/uL Hgb (11.4-16.0) gm/dL Hct (34.0-46.0) % MCV (80.0-100.0) fL MCH (25.0-35.0) pg MCHC (31.0-37.0) g/dL RDW (11.5-15.5) % Plt Count (150-450) k/uL MPV Neutrophils % % Lymphocytes % % Monocytes % % Eosinophils % % Basophils % % Neutrophils # (1.3-7.7) k/uL Lymphocytes # (1.0-4.8) k/uL Monocytes # (0-1.0) k/uL Eosinophils # (0-0.7) k/uL Basophils # (0-0.2) k/uL Hypochromasia Anisocytosis Microcytosis PT (10.0-12.5) sec INR (<1.2) APTT (22.0-30.0) sec Sodium (137-145) mmol/L Potassium (3.5-5.1) mmol/L Chloride (98-107) mmol/L Carbon Dioxide (22-30) mmol/L Anion Gap mmol/L BUN (7-17) mg/dL Creatinine (0.52-1.04) mg/dL Est GFR (CKD-EPI)AfAm (>60 ml/min/1.73 sqM) Est GFR (CKD-EPI)NonAf (>60 ml/min/1.73 sqM) Glucose (74-99) mg/dL Plasma Lactic Acid Ross 1.3 (0.7-2.0) mmol/L Calcium (8.4-10.2) mg/dL Total Bilirubin (0.2-1.3) mg/dL AST (14-36) U/L ALT (4-34) U/L Alkaline Phosphatase (38-126) U/L Troponin I <0.012 (0.000-0.034) ng/mL NT-Pro-B Natriuret Pep pg/mL Total Protein (6.3-8.2) g/dL Albumin (3.5-5.0) g/dL Disposition Clinical Impression: Chest pain, COPD exacerbation Disposition: ADMITTED IP TO THIS [facility] Condition: Stable Is patient prescribed a controlled substance at d/c from ED?: No Referrals: Rachell Watt MD [Primary Care Provider] - 1-2 days Time of Disposition: 12:45 Decision to Admit Reason: Admit from EC Decision Date: 08/25/24 Decision Time: 12:45
[2024-08-25 11:16] LABS: Anisocytosis Slight; Basophils # (A) 0.1 k/uL (0-0.2); Basophils % (A) 1 %; Eosinophils # (A) 0.3 k/uL (0-0.7); Eosinophils % (A) 3 %; HCT 44.2 % (34.0-46.0); Hypochromasia Slight; Lymphocytes # (A) 2.8 k/uL (1.0-4.8); Lymphocytes % (A) 27 %; MCH 29.6 pg (25.0-35.0); MCHC 31.7 g/dL (31.0-37.0); MCV 93.3 fL (80.0-100.0); Mean Platelet Volume 7.5; Microcytosis Slight; Monocytes # (A) 0.8 k/uL (0-1.0); Monocytes % (A) 7 %; Neutrophils # (A) 6.3 k/uL (1.3-7.7); Neutrophils % (A) 60 %; Platelet Count 361 k/uL (150-450); RBC 4.74 m/uL (3.80-5.40); RDW 19.1 % (11.5-15.5); WBC 10.5 k/uL (3.8-10.6)
[2024-08-25 11:33] LABS: Potassium 4.3 mmol/L (3.5-5.1)
[2024-08-25 11:34] LABS: ALT 14 U/L (4-34); AST 24 U/L (14-36); African American GFR (CKD) 43 (>60 ml/min/1.73 sqM); Albumin 4.4 g/dL (3.5-5.0); Alkaline Phosphatase 118 U/L (38-126); Anion Gap 8 mmol/L; Blood Urea Nitrogen 15 mg/dL (7-17); Calcium 9.8 mg/dL (8.4-10.2); Carbon Dioxide 25 mmol/L (22-30); Chloride 108 mmol/L (98-107); Glucose 111 mg/dL (74-99); Non-African American GFR(CKD) 38 (>60 ml/min/1.73 sqM); Sodium 141 mmol/L (137-145); Total Bilirubin 0.4 mg/dL (0.2-1.3); Total Protein 7.5 g/dL (6.3-8.2)
[2024-08-25 11:38] LABS: INR 0.9 (<1.2); Prothrombin Time 10.1 sec (10.0-12.5)
[2024-08-25 11:42] LABS: NT-Pro-B-Type Natriuretic Pept 2070 pg/mL
[2024-08-25] MEDS: methylPREDNISolone SOD SUCCI 125 MG/2 ML VIAL IV STA (11:47)
[2024-08-25] MEDS: IPRATROPIUM-ALBUTEROL 3 ML NEB INHALATION STA (12:17)
[2024-08-25] MEDS ORDERED: NALOXONE 0.4 MG/ML 1 ML VIAL IV PRN (12:46)
[2024-08-25] MEDS: ASPIRIN 81 MG PO STA (13:33)
[2024-08-25] MEDS ORDERED: ALBUTEROL NEBULIZED 2.5 MG/3 ML INHALATION PRN (13:55)
[2024-08-25] MEDS ORDERED: NON FORMULARY DRUG (Rimegepant Sulfate [Nurtec Odt] 75 MG Tablet) PO PRN (13:55)
--- NOTE | 2024-08-25 14:05 | P.HPIM ---
History of Present Illness 83-year-old female came in with complaints of shortness of breath. Patient does not usually wear oxygen at home. Patient also complaining of chest pressure tightness in the chest denied any fever chills. Patient was eval by MARYAN graf and they believe patient has COPD exacerbation was started on steroids by the time we evaluated the patient patient did not have any significant wheezing. Patient chest x-ray is consistent with pulmonary edema although appears to have some chronic thickening of the interlobar fissure on the right side. Patient does not have any fever chills patient BNP is around 2000 previous BNP was 8000 patient's creatinine is 1.33 baseline is around 1.2-1.4. Patient does not use any Lasix at home patient had a normal ejection fraction in the past. Diastolic function is not known. Patient had history of atrial fibrillation patient is presently sinus rhythm rate controlled on Eliquis had cardioversions in the past. REVIEW OF SYSTEMS: All other systems are negative except those mentioned in the HPI PHYSICAL EXAMINATION: GENERAL: The patient is alert and oriented x3, not in any acute distress. Well developed, well nourished. HEENT: Pupils are round and equally reacting to light. EOMI. No scleral icterus. No conjunctival pallor. Normocephalic, atraumatic. No pharyngeal erythema. No t hyromegaly. CARDIOVASCULAR: S1 and S2 present. No murmurs, rubs, or gallops. PULMONARY: Chest is clear to auscultation, no wheezing or crackles. ABDOMEN: Soft, nontender, nondistended, normoactive bowel sounds. No palpable organomegaly. MUSCULOSKELETAL: No joint swelling or deformity. EXTREMITIES: No cyanosis, clubbing, or pedal edema. NEUROLOGICAL: Gross neurological examination did not reveal any focal deficits. SKIN: No rashes. Assessment and plan Shortness of breath: Patient will be continued on systemic steroids and nasal treatments her wheezing may have improved by the time I evaluated the patient patient is not requiring oxygen at this time. Patient may have mild CHF exacerbation well as well will give a dose of Lasix 40 mg check the electrolytes and creatinine -Chronic kidney disease stage III yea -Paroxysmal atrial fibrillation presently rate controlled continue with rate control medications and Eliquis patient is on Cardizem and metoprolol oral which we will continue -Hypothyroidism continue with levothyroxine -COPD with acute exacerbation -Gastroesophageal reflux disease -Hypertension For above-mentioned chronic medical problems patient will be resumed on approp riate home medications DVT prophylaxis: On Eliquis Past Medical History Past Medical History: Atrial Fibrillation, Asthma, COPD, CVA/TIA, Eye Disorder, GERD/Reflux, Hypertension, Rheumatoid Arthritis (RA), Thyroid Disorder Additional Past Medical History / Comment(s): Other hx: Macular degeneration bilaterally-legally blind, rheumatoid arthritis in multple joints, osteoporosis, migraines, hypothyroid, urinary incontinence at times. History of Any Multi-Drug Resistant Organisms: ESBL Date of last positivie culture/infection: 06/05/18 MDRO Source:: esbl urine Past Surgical History: Appendectomy, Cholecystectomy, Hysterectomy, Orthopedic Surgery, Tonsillectomy Additional Past Surgical History / Comment(s): D&C, colonoscopy, left knee scope, right arm ORIF. Past Anesthesia/Blood Transfusion Reactions: Motion Sickness Additional Past Anesthesia/Blood Transfusion Reaction / Comment(s): severe motion sickness Past Psychological History: No Psychological Hx Reported Smoking Status: Former smoker Past Alcohol Use History: None Reported Past Drug Use History: None Reported - Past Family History Mother Additional Family Medical History / Comment(s): Pt states mother had severe migraines and at the age of 43yrs while hospitalized with severe migraine but does not know cause of . Father Family Medical History: Myocardial Infarction ([place]) Additional Family Medical History / Comment(s): Father of a NE at the age of 54yrs. Family Additional Family Medical History / Comment(s): Patient denies any history of coronary artery disease Medications and Allergies Home Medications Medication Instructions Recorded Confirmed Type Folic Acid 1 mg PO DAILY 06/05/18 08/25/24 History Montelukast [Singulair] 10 mg PO HS 06/05/18 08/25/24 History Apixaban [Eliquis] 5 mg PO BID tab 06/10/18 08/25/24 Rx Albuterol Inhaler [Ventolin Hfa 2 puff INHALATION RT-Q6H PRN 03/14/22 08/25/24 History Inhaler] Cholecalciferol [Vitamin D3 (25 50 mcg PO DAILY 03/14/22 08/25/24 History Mcg = 1000 Iu)] Ferrous Sulfate [Iron (65 MG 325 mg PO BID 03/14/22 08/25/24 History Elemental)] Levothyroxine Sodium [Synthroid] 25 mcg PO DAILY 03/14/22 08/25/24 History Aspirin 81 mg PO DAILY 10 Days #10 tab 03/23/22 08/25/24 Rx Leflunomide [Arava] 10 mg PO DAILY 11/24/22 08/25/24 History Melatonin 3 mg PO HS 11/24/22 08/25/24 History Budesonide/Formoterol Fumarate 2 puff INHALATION RT-BID 07/12/24 08/25/24 History [Symbicort 160-4.5 Mcg Inhaler] Carboxymethylcellulose Sodium 1 drop BOTH EYES DAILY 07/12/24 08/25/24 History [Refresh Tears] Cyanocobalamin (Vitamin B-12) 1,000 mcg PO DAILY 07/12/24 08/25/24 History [Vitamin B-12] Rimegepant Sulfate [Nurtec Odt] 75 mg PO DAILY PRN 07/12/24 08/25/24 History bisacodyL [Correctol] 5 mg PO DAILY PRN 07/12/24 08/25/24 History Diltiazem Oral [Cardizem*] 30 mg PO TID 30 Days #90 tab 07/15/24 08/25/24 Rx Metoprolol Tartrate [Lopressor] 50 mg PO BID #60 tab 07/15/24 08/25/24 Rx Nystatin 100,000 Unit/gm Powd 1 applic TOPICAL BID #1 each 07/15/24 08/25/24 Rx [Mycostatin Powder] Esomeprazole Magnesium [NexIUM] 40 mg PO DAILY 08/25/24 08/25/24 History Allergies Allergy/AdvReac Type Severity Reaction Status Date / Time adhesive tape Allergy Unknown Verified 08/25/24 13:44 ciprofloxacin [From Cipro] Allergy Unknown Verified 08/25/24 13:44 epinephrine Allergy Unknown Verified 08/25/24 13:44 latex Allergy Rash/Hives Verified 08/25/24 13:44 Penicillins Allergy Unknown Verified 08/25/24 13:44 povidone-iodine Allergy Unknown Verified 08/25/24 13:44 [From Betadine] soap [From Betadine] Allergy Unknown Verified 08/25/24 13:44 Sulfa (Sulfonamide Allergy Unknown Verified 08/25/24 13:44 Antibiotics) Tetanus Vaccines and Toxoid Allergy Unknown Verified 08/25/24 13:44 amitriptyline [From Elavil] AdvReac Confusion Verified 08/25/24 13:44 Physical Exam Vitals: Vital Signs Temp Pulse Resp BP Pulse Ox 08/25/24 13:29 98.7 F 95 18 166/92 94 L 08/25/24 12:27 93 08/25/24 12:17 96 08/25/24 09:36 20 08/25/24 09:23 97.9 F 102 H 20 195/93 94 L Intake and Output 08/24/24 08/25/24 08/25/24 22:59 06:59 14:59 Other: Weight 69.853 kg Results CBC & Chem 7: 08/25/24 09:29 08/25/24 09:29 Labs: Abnormal Lab Results - Last 24 Hours (Table) 08/25/24 08/25/24 Range/Units 09:29 09:29 RDW 19.1 H (11.5-15.5) % Chloride 108 H (98-107) mmol/L Creatinine 1.33 H (0.52-1.04) mg/dL Glucose 111 H (74-99) mg/dL
[2024-08-25] MEDS: IPRATROPIUM-ALBUTEROL 3 ML NEB INHALATION SCH (15:03)
[2024-08-25] MEDS: FUROSEMIDE 10 MG/ML 4 ML VIAL IV STA (15:25)
[2024-08-25] MEDS: DILTIAZEM ORAL 30 MG TAB PO SCH (15:33)
[2024-08-25] MEDS: SYMBICORT 160-4.5 MCG INHALER INHALATION SCH (18:37)
[2024-08-25] MEDS: METOPROLOL TARTRATE 50 MG TAB PO SCH (18:59)
[2024-08-25] MEDS: APIXABAN 5 MG TAB PO SCH (19:02)
[2024-08-25] MEDS ORDERED: methylPREDNISolone SOD SUCCI 40 MG/ML 1 ML VIAL IV SCH (20:00)
[2024-08-25] MEDS: DILTIAZEM 125 MG in SODIUM CHLORIDE 0.9% 100 ML IV SCH (22:13)
[2024-08-25] MEDS: methylPREDNISolone SOD SUCCI 40 MG/ML 1 ML VIAL IV SCH (22:19)
[2024-08-25] MEDS: MONTELUKAST 10 MG TAB PO SCH (22:19)
[2024-08-25] MEDS: NYSTATIN 100,000 UNIT/GM POWD 15 GM TOPICAL SCH (22:19)
[2024-08-25] MEDS: ACETAMINOPHEN TAB 500 MG TAB PO PRN (23:04)
[2024-08-26] MEDS: ONDANSETRON 4 MG/2 ML VIAL IVP STA (04:36)
[2024-08-26] MEDS: LEVOTHYROXINE 25 MCG TAB PO SCH (06:55)
[2024-08-26] MEDS: METOPROLOL TARTRATE 50 MG TAB PO SCH (09:16)
[2024-08-26] MEDS: PANTOPRAZOLE 40 MG TABLET PO SCH (09:22)
[2024-08-26] MEDS: LEFLUNOMIDE 20 MG TAB PO SCH (09:22)
[2024-08-26] MEDS: ASPIRIN 81 MG PO SCH (09:22)
[2024-08-26 09:52] LABS: Basophils # (A) 0.01 X 10*3/uL (0.00-0.10); Basophils % (A) 0.1 %; Eosinophils # (A) 0 X 10*3/uL (0.04-0.35); Eosinophils % (A) 0 %; HCT 47.3 % (37.2-46.3); HGB 14.9 g/dL (12.0-15.0); Lymphocytes # (A) 1.48 X 10*3/uL (0.90-5.00); Lymphocytes % (A) 10.8 %; MCH 28.8 pg (27.0-32.0); MCHC 31.5 g/dL (32.0-37.0); MCV 91.5 FL (80.0-97.0); Mean Platelet Volume 10.2 FL (9.5-12.2); Monocytes # (A) 0.43 X 10*3/uL (0.20-1.00); Monocytes % (A) 3.2 %; NRBC Per 100 WBC 0 X 10*3/uL (0.00-0.01); Neutrophils # (A) 11.65 X 10*3/uL (1.80-7.70); Neutrophils % (A) 85.3 %; Platelet Count 400 X 10*3/uL (140-440); RBC 5.17 X 10*6/uL (4.10-5.20); RDW 17.6 % (11.5-14.5); WBC 13.65 X 10*3/uL (4.50-10.00)
[2024-08-26 10:29] LABS: BUN/Creat Ratio 20.08 Ratio (12.00-20.00); Blood Urea Nitrogen 26.1 mg/dL (9.0-27.0); Calcium 9.8 mg/dL (8.7-10.3); Carbon Dioxide 21.8 mmol/L (21.6-31.8); Chloride 103 mmol/L (96-109); Glucose 183 mg/dL (70-110); Sodium 143 mmol/L (135-145)
[2024-08-26] MEDS: ARTIFICIAL TEARS-HYPROMELLOSE DROPS 15 ML BTL BOTH EYES SCH (10:49)
[2024-08-26 13:07] LABS: T4, Free (Free Thyroxine) 1.39 ng/dL (0.78-2.19)
[2024-08-26] MEDS: BUTALB/APAP/CAFF 50-325-40MG TAB PO PRN (13:44)
--- NOTE | 2024-08-26 14:58 | P.CRDCN ---
History of Present Illness Consult date: 08/26/24 Consult reason: atrial fibrillation, congestive heart failure History of present illness: The patient is an 83-year-old female who presented to the hospital with lower extremity edema and shortness of breath. Patient states she was in her usual state of health, however over the last week became weak and fatigued. Yesterday the patient felt as though she had an elephant sitting on her chest, therefore she presented to the emergency room and was found to be in A-fib with RVR. Heart rates have improved since admission, on 10 mg of Cardizem. Patient does have a known history of A-fib and follows with Dr. Nj in the office. She was previously managed on beta-vinnie and Eliquis. DIAGNOSTICS: EKG shows atrial fibrillation with RVR, heart rate 155 Chest x-ray shows chronic changes without acute process Lab data: WBC 13.65, hemoglobin 14.9, hematocrit 49.3, platelet 400, sodium 143, potassium 5.0, BUN 26, creatinine 1.3, AST 24, ALT 14, troponins negative x 3, BNP 2070, TSH less than 0.015 REVIEW OF SYSTEMS: No fever or chills. No cough or expectoration. No diaphoresis. Patient denies headache, dizziness, blurred vision, double vision. Patient denies any stomach discomfort. No nausea, vomiting. No hematochezia. No hematemesis. Denies any black stools or blood in his stools. Denies dysuria or hematuria. No muscle weakness or numbness. Denies chest pain or shortness of breath currently PHYSICAL EXAMINATION: This is a 83-year-old female in no apparent distress at the time of my examination. HEENT: Head is atraumatic, normocephalic. Pupils are equal, round. Sclerae anicteric. No carotid bruit is heard. CHEST EXAMINATION: Lungs are diminished to auscultation. No chest wall tenderness is noted on palpation or with deep breathing. HEART EXAMINATION: Irregular rate and rhythm. S1, S2 heard. No murmurs, gallops or rub. ABDOMEN: Soft, nontender. Bowel sounds are heard. No organomegaly noted. EXTREMITIES: 2+ peripheral pulses with no evidence of peripheral edema and no calf tenderness noted. NEUROLOGIC EXAMINATION: Patient is awake, alert and oriented x3. FINAL ASSESSMENT AND PLAN: Paroxysmal atrial fibrillation Congestive heart failure, diastolic History of COPD Hypothyroidism, suppressed on current dose of levothyroxine PLAN: Increase dose of metoprolol to 100 mg twice daily Wean off of Cardizem thereafter Discontinue levothyroxine Ideally the patient should be on Multaq; avoid amiodarone If Multaq is not available, consideration for ablation I am dictating on behalf of Dr Anupam Goldsmith's history/physical and assessment/plan. Past Medical History Past Medical History: Atrial Fibrillation, Asthma, COPD, CVA/TIA, Eye Disorder, GERD/Reflux, Hypertension, Rheumatoid Arthritis (RA), Thyroid Disorder Additional Past Medical History / Comment(s): Other hx: Macular degeneration bilaterally-legally blind, rheumatoid arthritis in multple joints, osteoporosis, migraines, hypothyroid, urinary incontinence at times. History of Any Multi-Drug Resistant Organisms: ESBL Date of last positivie culture/infection: 06/05/18 MDRO Source:: esbl urine Past Surgical History: Appendectomy, Cholecystectomy, Hysterectomy, Orthopedic Surgery, Tonsillectomy Additional Past Surgical History / Comment(s): D&C, colonoscopy, left knee scope, right arm ORIF. Past Anesthesia/Blood Transfusion Reactions: Motion Sickness Additional Past Anesthesia/Blood Transfusion Reaction / Comment(s): severe motion sickness Past Psychological History: No Psychological Hx Reported Additional Psychological History / Comment(s): She just got a walker. She is legally blind, no longer drives, her spouse drives and manages her medications. She has contact with a great manuelito that lives next door. She is retired, worked most recently at [employer]. No recent travel. No experience. Smoking Status: Former smoker Past Alcohol Use History: None Reported Additional Past Alcohol Use History / Comment(s): . Past Drug Use History: None Reported - Past Family History Mother Additional Family Medical History / Comment(s): Pt states mother had severe migraines and at the age of 43yrs while hospitalized with severe migraine but does not know cause of . Father Family Medical History: Myocardial Infarction ([place]) Additional Family Medical History / Comment(s): Father of a ND at the age of 54yrs. Family Additional Family Medical History / Comment(s): Patient denies any history of coronary artery disease Medications and Allergies Home Medications Medication Instructions Recorded Confirmed Type Folic Acid 1 mg PO DAILY 06/05/18 08/25/24 History Montelukast [Singulair] 10 mg PO HS 06/05/18 08/25/24 History Apixaban [Eliquis] 5 mg PO BID tab 06/10/18 08/25/24 Rx Albuterol Inhaler [Ventolin Hfa 2 puff INHALATION RT-Q6H PRN 03/14/22 08/25/24 History Inhaler] Cholecalciferol [Vitamin D3 (25 50 mcg PO DAILY 03/14/22 08/25/24 History Mcg = 1000 Iu)] Ferrous Sulfate [Iron (65 MG 325 mg PO BID 03/14/22 08/25/24 History Elemental)] Levothyroxine Sodium [Synthroid] 25 mcg PO DAILY 03/14/22 08/25/24 History Aspirin 81 mg PO DAILY 10 Days #10 tab 03/23/22 08/25/24 Rx Leflunomide [Arava] 10 mg PO DAILY 11/24/22 08/25/24 History Melatonin 3 mg PO HS 11/24/22 08/25/24 History Budesonide/Formoterol Fumarate 2 puff INHALATION RT-BID 07/12/24 08/25/24 History [Symbicort 160-4.5 Mcg Inhaler] Carboxymethylcellulose Sodium 1 drop BOTH EYES DAILY 07/12/24 08/25/24 History [Refresh Tears] Cyanocobalamin (Vitamin B-12) 1,000 mcg PO DAILY 07/12/24 08/25/24 History [Vitamin B-12] Rimegepant Sulfate [Nurtec Odt] 75 mg PO DAILY PRN 07/12/24 08/25/24 History bisacodyL [Correctol] 5 mg PO DAILY PRN 07/12/24 08/25/24 History Diltiazem Oral [Cardizem*] 30 mg PO TID 30 Days #90 tab 07/15/24 08/25/24 Rx Metoprolol Tartrate [Lopressor] 50 mg PO BID #60 tab 07/15/24 08/25/24 Rx Nystatin 100,000 Unit/gm Powd 1 applic TOPICAL BID #1 each 07/15/24 08/25/24 Rx [Mycostatin Powder] Esomeprazole Magnesium [NexIUM] 40 mg PO DAILY 08/25/24 08/25/24 History Allergies Allergy/AdvReac Type Severity Reaction Status Date / Time adhesive tape Allergy Unknown Verified 08/25/24 13:44 ciprofloxacin [From Cipro] Allergy Unknown Verified 08/25/24 13:44 epinephrine Allergy Unknown Verified 08/25/24 13:44 latex Allergy Rash/Hives Verified 08/25/24 13:44 Penicillins Allergy Unknown Verified 08/25/24 13:44 povidone-iodine Allergy Unknown Verified 08/25/24 13:44 [From Betadine] soap [From Betadine] Allergy Unknown Verified 08/25/24 13:44 Sulfa (Sulfonamide Allergy Unknown Verified 08/25/24 13:44 Antibiotics) Tetanus Vaccines and Toxoid Allergy Unknown Verified 08/25/24 13:44 amitriptyline [From Elavil] AdvReac Confusion Verified 08/25/24 13:44 Physical Exam Vitals: Vital Signs Temp Pulse Pulse Resp BP BP Pulse Ox 08/26/24 07:05 98.0 F 129 H 18 140/83 96 08/26/24 02:00 97.5 F L 117 H 18 135/92 95 08/25/24 21:15 128 H 135/75 96 08/25/24 18:30 97.6 F 85 16 138/78 95 08/25/24 17:36 98.4 F 105 H 20 177/98 95 08/25/24 15:27 112 H 18 159/100 95 08/25/24 15:12 105 H 08/25/24 15:03 98 08/25/24 13:29 98.7 F 95 18 166/92 94 L 08/25/24 12:27 93 08/25/24 12:17 96 08/25/24 09:36 20 08/25/24 09:23 97.9 F 102 H 20 195/93 94 L Intake and Output 08/25/24 08/26/24 08/26/24 22:59 06:59 14:59 Intake Total 97.333 Output Total 600 Balance -600 97.333 Intake: Intake, IV Titration 97.333 Amount Diltiazem 125 mg In 97.333 Sodium Chloride 0.9% 100 ml @ 10 MG/HR 10 mls/hr IV .[id number] [facility] Rx#: [id number] Output: Urine 600 Other: # Voids 1 # Bowel Movements 1 Weight 69.853 kg Results 08/26/24 06:13 08/26/24 06:07 Cardiac Enzymes 08/25/24 08/25/24 08/25/24 Range/Units 09:29 09:29 14:30 AST 24 (14-36) U/L Troponin I <0.012 <0.012 (0.000-0.034) ng/mL 08/25/24 Range/Units 17:23 AST (14-36) U/L Troponin I <0.012 (0.000-0.034) ng/mL Coagulation 08/25/24 Range/Units 09:29 PT 10.1 (10.0-12.5) sec APTT 24.0 (22.0-30.0) sec CBC 08/25/24 Range/Units 09:29 WBC 10.5 (3.8-10.6) k/uL RBC 4.74 (3.80-5.40) m/uL Hgb 14.0 (11.4-16.0) gm/dL Hct 44.2 (34.0-46.0) % Plt Count 361 (150-450) k/uL Comprehensive Metabolic Panel 08/25/24 Range/Units 09:29 Sodium 141 (137-145) mmol/L Potassium 4.3 (3.5-5.1) mmol/L Chloride 108 H (98-107) mmol/L Carbon Dioxide 25 (22-30) mmol/L BUN 15 (7-17) mg/dL Creatinine 1.33 H (0.52-1.04) mg/dL Glucose 111 H (74-99) mg/dL Calcium 9.8 (8.4-10.2) mg/dL AST 24 (14-36) U/L ALT 14 (4-34) U/L Alkaline Phosphatase 118 (38-126) U/L Total Protein 7.5 (6.3-8.2) g/dL Albumin 4.4 (3.5-5.0) g/dL Current Medications Generic Name Dose Route Start Last Admin Trade Name Freq PRN Reason Stop Dose Admin Acetaminophen 500 mg 08/25/24 22:37 08/25/24 23:04 Acetaminophen Tab 500 Mg Tab PO 500 mg Q6HR PRN Administration Fever and/ or Pain Albuterol Sulfate 2.5 mg 08/25/24 13:55 Albuterol Nebulized 2.5 Mg/3 Ml INHALATION RT-Q6H PRN Shortness Of Breath Or Wheezing Albuterol/Ipratropium 3 ml 08/25/24 16:00 08/26/24 03:54 Ipratropium-Albuterol 3 Ml Neb INHALATION Not Given RT-Q4H [facility] Apixaban 5 mg 08/25/24 21:00 08/25/24 19:02 Apixaban 5 Mg Tab PO 5 mg BID [facility] Administration Protocol Artificial Tears 1 drops 08/26/24 09:00 Artificial Tears-Hypromellose Drops 15 Ml Btl BOTH EYES DAILY [facility] Aspirin 81 mg 08/26/24 09:00 Aspirin [address] [facility] Budesonide/Formoterol Fumarate 2 puff 08/25/24 20:00 08/25/24 18:37 Symbicort 160-4.5 Mcg Inhaler INHALATION Not Given RT-BID [facility] Diltiazem HCl 30 mg 08/25/24 16:00 08/25/24 19:02 Diltiazem Oral 30 Mg Tab PO [address] [facility] Administration Diltiazem HCl 125 mg/ Sodium 125 mls @ 10 mls/hr 08/25/24 21:30 08/26/24 07:57 Chloride IV 10 mg/hr .[id number] [facility] 10 mls/hr Administration Protocol 10 MG/HR Leflunomide 10 mg 08/26/24 09:00 Leflunomide 20 [address] Tab [address] [facility] Levothyroxine Sodium 25 mcg 08/26/24 06:30 08/26/24 06:55 Levothyroxine 25 Mcg Tab PO 25 mcg 0630 [facility] Administration Methylprednisolone Sodium Succinate 40 mg 08/25/24 21:00 08/25/24 22:19 Methylprednisolone Sod Succi 40 Mg/Ml 1 Ml Vial IV 40 mg BID [facility] Administration Metoprolol Tartrate 50 mg 08/25/24 21:00 08/25/24 18:59 Metoprolol Tartrate 50 Mg Tab PO 50 mg BID [facility] Administration Montelukast Sodium 10 mg 08/25/24 21:00 08/25/24 22:19 Montelukast 10 Mg Tab PO 10 mg HS [facility] Administration Naloxone HCl 0.2 mg 08/25/24 12:46 Naloxone 0.4 Mg/Ml 1 Ml Vial IV Q2M PRN Opioid Reversal Non-Formulary Medication 75 mg 08/25/24 13:55 Rimegepant Sulfate [Nurtec Odt] PO DAILY PRN Migraine Headache Nystatin 1 applic 08/25/24 21:00 08/25/24 22:19 Nystatin 100,000 Unit/Gm Powd 15 Gm TOPICAL 1 applic BID [facility] Administration Protocol Pantoprazole Sodium 40 mg 08/26/24 09:00 Pantoprazole 40 Mg Tablet PO DAILY [facility] Intake and Output 08/25/24 08/26/24 08/26/24 22:59 06:59 14:59 Intake Total 97.333 Output Total 600 Balance -600 97.333 Intake: Intake, IV Titration 97.333 Amount Diltiazem 125 mg In 97.333 Sodium Chloride 0.9% 100 ml @ 10 MG/HR 10 mls/hr IV .[id number] [facility] Rx#: [id number] Output: Urine 600 Other: # Voids 1 # Bowel Movements 1 Weight 69.853 kg 08/25/24 09:29 08/25/24 09:29
--- NOTE | 2024-08-26 19:24 | P.PN ---
Subjective Progress Note Date: 08/26/24 83-year-old female came in with complaints of shortness of breath. Patient does not usually wear oxygen at home. Patient also complaining of chest pressure tightness in the chest denied any fever chills. Patient was eval by ER physician and they believe patient has COPD exacerbation was started on steroids by the time we evaluated the patient patient did not have any significant wheezing. Patient chest x-ray is consistent with pulmonary edema although appears to have some chronic thickening of the interlobar fissure on the right side. Patient does not have any fever chills patient BNP is around 2000 previous BNP was 8000 patient's creatinine is 1.33 baseline is around 1.2-1.4. Patient does not use any Lasix at home patient had a normal ejection fraction in the past. Diastolic function is not known. Patient had history of atrial fibrillation patient is presently sinus rhythm rate controlled on Eliquis had cardioversions in the past. 08/26/2024 Patient evaluated in follow-up in the medical floor. She is not currently wearing any oxygen reporting improved shortness of breath. Patient continues on IV Solu-Medrol for a COPD exacerbation. Additionally patient was started on IV Cardizem secondary to an episode of atrial fibrillation with rapid ventricular rate. Heart rate remains in the 120s. She is on oral Cardizem her oral metoprolol has been increased today. She received a one-time dose of IV Lasix. TSH is currently pending at this time was found to be less than 0.015 however her free T4 is 1.39. Review of Systems Constitutional: Denied any fatigue denied any fever. Cardio vascular: denied any chest pain, palpitations Gastrointestinal: denied any nausea, vomiting, diarrhea Pulmonary: Denied any shortness of breath cough Neurologic denied any new focal deficits All inpatient medications were reviewed and appropriate changes in these medications as dictated in the interval history and assessment and plan. PHYSICAL EXAMINATION: GENERAL: The patient is alert and oriented x3, not in any acute distress. Well developed, well nourished. HEENT: Pupils are round and equally reacting to light. EOMI. No scleral icterus. No conjunctival pallor. Normocephalic, atraumatic. No pharyngeal erythema. No thyromegaly. CARDIOVASCULAR: S1 and S2 present. No murmurs, rubs, or gallops. PULMONARY: Chest is clear to auscultation, no wheezing or crackles. ABDOMEN: Soft, nontender, nondistended, normoactive bowel sounds. No palpable organomegaly. MUSCULOSKELETAL: No joint swelling or deformity. EXTREMITIES: No cyanosis, clubbing, or pedal edema. NEUROLOGICAL: Gross neurological examination did not reveal any focal deficits. SKIN: No rashes. Assessment and plan Shortness of breath: Patient will be continued on systemic steroids and nasal treatments her wheezing may have improved by the time I evaluated the patient patient is not requiring oxygen at this time. Patient may have mild CHF exacerbation well as well will give a dose of Lasix 40 mg check the electrolytes and creatinine -Chronic kidney disease stage III -Paroxysmal atrial fibrillation currently with RVR. Patient continues on oral and IV Cardizem her metoprolol has been increased today. Continue cardiac monitoring. -Hypothyroidism continue with levothyroxine -COPD with acute exacerbation -Gastroesophageal reflux disease -Hypertension For above-mentioned chronic medical problems patient will be resumed on appropriate home medications DVT prophylaxis: On [facility] The impression and plan of care has been dictated by Noa Michel Nurse Practitioner as directed. Dr. Tahir MD I have performed a history and physical examination and medical decision making of this patient, discussed the same with the dictator, and agree with the dictators assessment and plan as written, documented as a scribe. Based on total visit time, I have performed more than 50% of this visit. Objective - Vital Signs Vital signs: Vital Signs Temp 98.0 F 08/26/24 07:05 Pulse 129 H 08/26/24 07:05 Resp 18 08/26/24 07:05 BP 140/83 08/26/24 07:05 Pulse Ox 97 08/26/24 08:41 FiO2 Intake & Output 08/25/24 08/26/24 08/26/24 18:59 06:59 18:59 Intake Total 97.333 Output Total 600 Balance -600 97.333 Weight 69.853 kg 69.853 kg Intake: Intake, IV Titration 97.333 Amount Diltiazem 125 mg In 97.333 Sodium Chloride 0.9% 100 ml @ 10 MG/HR 10 mls/hr IV .[id number] [facility] Rx#: [id number] Output: Urine 600 Other: # Voids 1 # Bowel Movements 1 - Labs CBC & Chem 7: 08/26/24 06:13 08/26/24 06:07 Labs: Abnormal Lab Results - Last 24 Hours (Table) 08/25/24 08/25/24 Range/Units 09:29 09:29 RDW 19.1 H (11.5-15.5) % Chloride 108 H (98-107) mmol/L Creatinine 1.33 H (0.52-1.04) mg/dL Glucose 111 H (74-99) mg/dL Assessment and Plan Time with Patient: Less than 30
[2024-08-26] MEDS: MELATONIN 3 MG TABLET PO SCH (21:33)
[2024-08-27] MEDS: DRONEDARONE 400 MG TAB PO SCH (09:08)
[2024-08-27] MEDS: DILTIAZEM ORAL 60 MG TAB PO SCH (09:09)
--- NOTE | 2024-08-27 11:57 | P.PN ---
Subjective HISTORY OF PRESENT ILLNESS: Patient examined this morning at the bedside. Patient currently denies chest pain or pressure. She denies shortness of breath. She currently denies palpitations. She remains in atrial fibrillation with a heart rate around 100. She remains on IV Cardizem at 10 mg an hour. Blood pressure stable with a recent reading of 118/78. PHYSICAL EXAM: VITAL SIGNS: Reviewed. GENERAL: Well-developed in no acute distress. NECK: Supple. No JVD or thyromegaly LUNGS: Respirations even and unlabored. Lungs essentially clear to auscultation bilaterally. HEART: Irregular rate and rhythm. S1 and S2 heard. EXTREMITIES: Normal range of motion. No clubbing or cyanosis. Peripheral pulses intact. No lower extremity edema ASSESSMENT: Paroxysmal atrial fibrillation with RVR History of cardioversion, 07/14/2024 Mild acute heart failure with preserved EF, currently euvolemic History of COPD History of hypothyroidism PLAN: Wean off IV Cardizem Increase oral Cardizem to 60 mg 3 times daily Add Multaq 400 mg twice a day Continue current dose of metoprolol tartrate 100 mg twice a day Continue telemetry monitoring Further recommendations pending patient course Nurse practitioner note has been reviewed by physician. Signing provider agrees with the documented findings, assessment, and plan of care documented by SP[employer] OPERATIONS MANAGER as a scribe. Objective - Vital Signs Vital signs: Vital Signs Temp 97.6 F 08/27/24 07:00 Pulse 88 08/27/24 09:09 Resp 17 08/27/24 07:00 BP 118/78 08/27/24 07:00 Pulse Ox 96 08/27/24 08:59 FiO2 21 08/27/24 08:59 Intake & Output 08/26/24 08/27/24 08/27/24 18:59 06:59 18:59 Intake Total 433.333 125 110.667 Balance 433.333 125 110.667 Intake: Intake, IV Titration 97.333 125 110.667 Amount Diltiazem 125 mg In 97.333 125 110.667 Sodium Chloride 0.9% 100 ml @ 10 MG/HR 10 mls/hr IV .[id number] [facility] Rx#: [id number] Oral 336 Other: Voiding Method External Catheter External Catheter # Voids 2 3 - Labs CBC & Chem 7: 08/26/24 06:13 08/26/24 06:07 Labs: Abnormal Lab Results - Last 24 Hours (Table) 08/26/24 Range/Units 10:59 TSH <0.015 L (0.465-4.680) mIU/L
[2024-08-27] MEDS: BENZOCAINE/MENTHOL LOZENG 1 EACH LOZENGE MUCOUS MEM PRN (21:17)
--- NOTE | 2024-08-27 23:00 | P.PN ---
Subjective Progress Note Date: 08/27/24 83-year-old female came in with complaints of shortness of breath. Patient does not usually wear oxygen at home. Patient also complaining of chest pressure tightness in the chest denied any fever chills. Patient was eval by ER physician and they believe patient has COPD exacerbation was started on steroids by the time we evaluated the patient patient did not have any significant wheezing. Patient chest x-ray is consistent with pulmonary edema although appears to have some chronic thickening of the interlobar fissure on the right side. Patient does not have any fever chills patient BNP is around 2000 previous BNP was 8000 patient's creatinine is 1.33 baseline is around 1.2-1.4. Patient does not use any Lasix at home patient had a normal ejection fraction in the past. Diastolic function is not known. Patient had history of atrial fibrillation patient is presently sinus rhythm rate controlled on Eliquis had cardioversions in the past. 08/26/2024 Patient evaluated in follow-up in the medical floor. She is not currently wearing any oxygen reporting improved shortness of breath. Patient continues on IV Solu-Medrol for a COPD exacerbation. Additionally patient was started on IV Cardizem secondary to an episode of atrial fibrillation with rapid ventricular rate. Heart rate remains in the 120s. She is on oral Cardizem her oral metoprolol has been increased today. She received a one-time dose of IV Lasix. TSH is currently pending at this time was found to be less than 0.015 however her free T4 is 1.39. 08/27/2024 Patient evaluated in follow-up of medical floor. Patient was having weaned to room air she does report continued shortness of breath and is having some expiratory wheezing on assessment. She continues on IV Solu-Medrol. Patient also continues on IV Cardizem with started on oral Cardizem and metoprolol has been increased. Review of Systems Constitutional: Denied any fatigue denied any fever. Cardio vascular: denied any chest pain, palpitations Gastrointestinal: denied any nausea, vomiting, diarrhea Pulmonary: Denied any shortness of breath cough Neurologic denied any new focal deficits All inpatient medications were reviewed and appropriate changes in these medications as dictated in the interval history and assessment and plan. PHYSICAL EXAMINATION: GENERAL: The patient is alert and oriented x3, not in any acute distress. Well developed, well nourished. HEENT: Pupils are round and equally reacting to light. EOMI. No scleral icterus. No conjunctival pallor. Normocephalic, atraumatic. No pharyngeal erythema. No thyromegaly. CARDIOVASCULAR: S1 and S2 present. No murmurs, rubs, or gallops. PULMONARY: Faint scattered wheezing ABDOMEN: Soft, nontender, nondistended, normoactive bowel sounds. No palpable organomegaly. MUSCULOSKELETAL: No joint swelling or deformity. EXTREMITIES: No cyanosis, clubbing, or pedal edema. NEUROLOGICAL: Gross neurological examination did not reveal any focal deficits. SKIN: No rashes. Assessment and plan Shortness of breath: Secondary to acute COPD exacerbation continue with systemic steroids -mild CHF exacerbation well as well will give a dose of Lasix 40 mg check the electrolytes and creatinine -Chronic kidney disease stage III -Paroxysmal atrial fibrillation currently with RVR. Patient continues on oral and IV Cardizem her metoprolol has been increased today. Continue cardiac monitoring. Plan to wean the IV Cardizem and patient's heart rate remains controlled she can be discharged home tomorrow -Hypothyroidism continue with levothyroxine -COPD with acute exacerbation -Gastroesophageal reflux disease -Hypertension For above-mentioned chronic medical problems patient will be resumed on appropriate home medications DVT prophylaxis: On [facility] The impression and plan of care has been dictated by Noa Michel Nurse Practitioner as directed. Dr. Tahir MD I have performed a history and physical examination and medical decision making of this patient, discussed the same with the dictator, and agree with the dictators assessment and plan as written, documented as a scribe. Based on total visit time, I have performed more than 50% of this visit. Objective - Vital Signs Vital signs: Vital Signs Temp 97.5 F L 08/27/24 19:31 Pulse 88 08/27/24 22:05 Resp 15 08/27/24 19:31 BP 106/70 08/27/24 19:31 Pulse Ox 94 L 08/27/24 19:31 FiO2 21 08/27/24 08:59 Intake & Output 08/27/24 08/27/24 08/28/24 06:59 18:59 06:59 Intake Total 125 228.667 Output Total 400 Balance 125 -171.333 Intake: Intake, IV Titration 125 110.667 Amount Diltiazem 125 mg In 125 110.667 Sodium Chloride 0.9% 100 ml @ 10 MG/HR 10 mls/hr IV .[id number] [facility] Rx#: [id number] Oral 118 Output: Urine 400 Other: Voiding Method External Catheter External Catheter # Voids 3 - Labs CBC & Chem 7: 08/26/24 06:13 08/26/24 06:07 Assessment and Plan Time with Patient: Less than 30
[2024-08-28] MEDS ORDERED: PROPOFOL 10 MG/ML 20 ML VIAL IV ONE (09:26)
[2024-08-28] MEDS ORDERED: LIDOCAINE 1% INJ 10MG/ML (20 ML MDV) ONE (09:26)
[2024-08-28] MEDS: SODIUM CHLORIDE 0.9% 1,000 ML IV SCH (09:50)
[2024-08-28] MEDS: LACTATED RINGERS 1,000 ML IV ONE (10:05)
--- NOTE | 2024-08-28 11:02 | P.PN ---
Subjective HISTORY OF PRESENT ILLNESS: Patient examined this morning at the bedside. Patient currently denies chest pain or pressure. She denies shortness of breath. She currently denies palpitations. She remains in atrial fibrillation with a heart rate around 100. She remains on IV Cardizem at 10 mg an hour. Blood pressure stable with a recent reading of 118/78. 08/28/2024 Patient examined this morning at the bedside. Patient currently denies chest pain or pressure. She denies shortness of breath. She remains in atrial fibrillation with a heart rate around 120. PHYSICAL EXAM: VITAL SIGNS: Reviewed. GENERAL: Well-developed in no acute distress. NECK: Supple. No JVD or thyromegaly LUNGS: Respirations even and unlabored. Lungs essentially clear to auscultation bilaterally. HEART: Tachycardic. Irregular rate and rhythm. S1 and S2 heard. EXTREMITIES: Normal range of motion. No clubbing or cyanosis. Peripheral pulses intact. No lower extremity edema ASSESSMENT: Paroxysmal atrial fibrillation with RVR History of cardioversion, 07/14/2024 Mild acute heart failure with preserved EF, currently euvolemic History of COPD History of hypothyroidism PLAN: Continue current dose of oral Cardizem 60 mg 3 times daily Continue Multaq 400 mg twice a day Continue current dose of metoprolol tartrate 100 mg twice a day Continue telemetry monitoring Patient to undergo cardioversion today with Dr. Pedroza Further recommendations pending patient course Nurse practitioner note has been reviewed by physician. Signing provider agrees with the documented findings, assessment, and plan of care documented by MEAT TEAM MEMBER as a scribe. Objective - Vital Signs Vital signs: Vital Signs Temp 97.5 F L 08/28/24 07:00 Pulse 51 L 08/28/24 10:23 Resp 18 08/28/24 10:23 BP 119/55 08/28/24 10:23 Pulse Ox 93 L 08/28/24 10:23 FiO2 21 08/27/24 08:59 Intake & Output 08/27/24 08/28/24 08/28/24 18:59 06:59 18:59 Intake Total 228.667 100 Output Total 400 Balance -171.333 100 Intake: IV 100 Intake, IV Titration 110.667 Amount Diltiazem 125 mg In 110.667 Sodium Chloride 0.9% 100 ml @ 10 MG/HR 10 mls/hr IV .[id number] [facility] Rx#: [id number] Oral 118 Output: Urine 400 Other: Voiding Method External Catheter External Catheter Bedside Commode External Catheter # Voids 1 - Labs CBC & Chem 7: 08/26/24 06:13 08/26/24 06:07
--- NOTE | 2024-08-28 13:28 | P.PCN ---
Date of Procedure: 08/28/24 Operative Findings: Cardioversion Report Performing physician David Pedroza M.D. Procedure performed Successful cardioversion of atrial fibrillation to normal sinus mechanism using 200 J at first attempt Indication Symptomatic atrial fibrillation Complication None Level of sedation The procedure was performed under deep sedation using propofol with DRIVER LICENSE TECHNICIAN in the room Procedure description After obtaining an informed consent the patient was brought to the recovery room. Sedation was introduced using propofol with DRIVER LICENSE TECHNICIAN in the room. Subsequently the patient cardioverted from atrial fibrillation to normal sinus mechanism using 200 J and first attempt Conclusion Successful cardioversion of atrial fibrillation to normal sinus mechanism using 200 J Postprocedure management Continue the current medical regimen Continue oral anticoagulation Follow-up with the patient
--- NOTE | 2024-08-28 14:31 | P.PN ---
Subjective Progress Note Date: 08/28/24 83-year-old female came in with complaints of shortness of breath. Patient does not usually wear oxygen at home. Patient also complaining of chest pressure tightness in the chest denied any fever chills. Patient was eval by ER physician and they believe patient has COPD exacerbation was started on steroids by the time we evaluated the patient patient did not have any significant wheezing. Patient chest x-ray is consistent with pulmonary edema although appears to have some chronic thickening of the interlobar fissure on the right side. Patient does not have any fever chills patient BNP is around 2000 previous BNP was 8000 patient's creatinine is 1.33 baseline is around 1.2-1.4. Patient does not use any Lasix at home patient had a normal ejection fraction in the past. Diastolic function is not known. Patient had history of atrial fibrillation patient is presently sinus rhythm rate controlled on Eliquis had cardioversions in the past. 08/26/2024 Patient evaluated in follow-up in the medical floor. She is not currently wearing any oxygen reporting improved shortness of breath. Patient continues on IV Solu-Medrol for a COPD exacerbation. Additionally patient was started on IV Cardizem secondary to an episode of atrial fibrillation with rapid ventricular rate. Heart rate remains in the 120s. She is on oral Cardizem her oral metoprolol has been increased today. She received a one-time dose of IV Lasix. TSH is currently pending at this time was found to be less than 0.015 however her free T4 is 1.39. 08/27/2024 Patient evaluated in follow-up of medical floor. Patient was having weaned to room air she does report continued shortness of breath and is having some expiratory wheezing on assessment. She continues on IV Solu-Medrol. Patient also continues on IV Cardizem with started on oral Cardizem and metoprolol has been increased. 08/28/2024 Patient evaluated in follow-up on the medical floor. Patient remains on room air with oxygen saturations of 96%. Heart rate remained elevated 120s overnight despite IV Cardizem. Patient underwent mechanical cardioversion today. Heart rate is now in the 50s sinus bradycardia metoprolol was decreased. On IV Solu- Medrol. Review of Systems Constitutional: Denied any fatigue denied any fever. Cardio vascular: denied any chest pain, palpitations Gastrointestinal: denied any nausea, vomiting, diarrhea Pulmonary: Denied any shortness of breath. Reports cough Neurologic denied any new focal deficits All inpatient medications were reviewed and appropriate changes in these medications as dictated in the interval history and assessment and plan. PHYSICAL EXAMINATION: GENERAL: The patient is alert and oriented x3, not in any acute distress. Well developed, well nourished. HEENT: Pupils are round and equally reacting to light. EOMI. No scleral icterus. No conjunctival pallor. Normocephalic, atraumatic. No pharyngeal erythema. No thyromegaly. CARDIOVASCULAR: S1 and S2 present. No murmurs, rubs, or gallops. PULMONARY: Faint scattered wheezing ABDOMEN: Soft, nontender, nondistended, normoactive bowel sounds. No palpable organomegaly. MUSCULOSKELETAL: No joint swelling or deformity. EXTREMITIES: No cyanosis, clubbing, or pedal edema. NEUROLOGICAL: Gross neurological examination did not reveal any focal deficits. SKIN: No rashes. Assessment and plan Shortness of breath: Secondary to acute COPD exacerbation continue with systemic steroids -mild CHF exacerbation -Chronic kidney disease stage III -Paroxysmal atrial fibrillation currently with RVR. Status post cardioversion and now in normal sinus rhythm with bradycardia metoprolol has been decreased. Will monitor the patient overnight on cardiac telemetry -Hypothyroidism continue with levothyroxine -COPD with acute exacerbation -Gastroesophageal reflux disease -Hypertension For above-mentioned chronic medical problems patient will be resumed on appropriate home medications Possible DC home in the next 24 hours. DVT prophylaxis: On [facility] The impression and plan of care has been dictated by Noa Michel, Nurse Practitioner as directed. Dr. Tahir MD I have performed a history and physical examination and medical decision making of this patient, discussed the same with the dictator, and agree with the dictators assessment and plan as written, documented as a scribe. Based on total visit time, I have performed more than 50% of this visit. Objective - Vital Signs Vital signs: Vital Signs Temp 97.7 F 08/28/24 11:00 Pulse 52 L 08/28/24 13:00 Resp 17 08/28/24 11:15 BP 101/64 08/28/24 11:45 Pulse Ox 96 08/28/24 11:45 FiO2 21 08/27/24 08:59 Intake & Output 08/27/24 08/28/24 08/28/24 18:59 06:59 18:59 Intake Total 228.667 100 Output Total 400 Balance -171.333 100 Intake: IV 100 Intake, IV Titration 110.667 Amount Diltiazem 125 mg In 110.667 Sodium Chloride 0.9% 100 ml @ 10 MG/HR 10 mls/hr IV .[id number] [facility] Rx#: [id number] Oral 118 Output: Urine 400 Other: Voiding Method External Catheter External Catheter Bedside Commode External Catheter # Voids 1 1 # Bowel Movements 1 - Labs CBC & Chem 7: 08/26/24 06:13 08/26/24 06:07 Assessment and Plan Time with Patient: Less than 30
[2024-08-28] MEDS ORDERED: ALBUTEROL NEBULIZED 2.5 MG/3 ML INHALATION SCH (16:00)
[2024-08-28] MEDS: IPRATROPIUM-ALBUTEROL 3 ML NEB INHALATION SCH (16:30)
[2024-08-28] MEDS: METOPROLOL TARTRATE 50 MG TAB PO SCH (21:15)
[2024-08-29 07:24] VITALS: BP 125/56; RESP 16; TEMP 97.2
[2024-08-29] MEDS: DILTIAZEM ORAL 60 MG TAB PO SCH (08:49)
--- NOTE | 2024-08-29 09:37 | P.PN ---
Subjective HISTORY OF PRESENT ILLNESS: Patient examined this morning at the bedside. Patient currently denies chest pain or pressure. She denies shortness of breath. She currently denies palpitations. She remains in atrial fibrillation with a heart rate around 100. She remains on IV Cardizem at 10 mg an hour. Blood pressure stable with a recent reading of 118/78. 08/28/2024 Patient examined this morning at the bedside. Patient currently denies chest pain or pressure. She denies shortness of breath. She remains in atrial fibrillation with a heart rate around 120. Addendum entered and electronically signed by Charu Webb NP-C 08/28/24 12:29: patient is s/p CV maintaining sinus mechanism in the 50s. Will decrease metoprolol to 50mg BID. 08/29/2024 Patient examined this morning the bedside. Patient currently denies chest pain or pressure. She denies shortness of breath. She is status post cardioversion yesterday with Dr. Pedroza. She is maintaining sinus bradycardia with heart rate in the 50s. PHYSICAL EXAM: VITAL SIGNS: Reviewed. GENERAL: Well-developed in no acute distress. NECK: Supple. No JVD or thyromegaly LUNGS: Respirations even and unlabored. Lungs essentially clear to auscultation bilaterally. HEART: Bradycardic. Regular rate and rhythm. S1 and S2 heard. EXTREMITIES: Normal range of motion. No clubbing or cyanosis. Peripheral pulses intact. No lower extremity edema ASSESSMENT: Paroxysmal atrial fibrillation with RVR Status post cardioversion 08/28/2024 History of cardioversion, 07/14/2024 Mild acute heart failure with preserved EF, currently euvolemic History of COPD History of hypothyroidism PLAN: Continue Multaq 400 mg twice a day Metoprolol decreased yesterday to 50 mg twice a day Decrease oral Cardizem to 30 mg 3 times daily Continue additional cardiac medications Patient is stable for discharge home today from a cardiac standpoint Patient to follow-up postdischarge with Dr. Pedroza Nurse practitioner note has been reviewed by physician. Signing provider agrees with the documented findings, assessment, and plan of care documented by TANBARK PEELER as a scribe. Objective - Vital Signs Vital signs: Vital Signs Temp 97.2 F L 08/29/24 07:00 Pulse 67 08/29/24 08:50 Resp 16 08/29/24 07:00 BP 125/56 12/18/24 07:00 Pulse Ox 94 L 08/29/24 07:00 FiO2 21 08/27/24 08:59 Intake & Output 08/28/24 08/29/24 08/29/24 18:59 06:59 18:59 Intake Total 100 240 Balance 100 240 Intake: IV 100 Oral 240 Other: Voiding Method Bedside Commode Bedside Commode Bedside Commode External Catheter External Catheter External Catheter # Voids 1 # Bowel Movements 1 - Labs CBC & Chem 7: 08/26/24 06:13 08/26/24 06:07
--- NOTE | 2024-08-29 13:46 | P.PN ---
Progress Note - Text Progress Note Date: 08/29/24 Patient will require nebulizer on discharge to manage COPD. Patient will continue on DuoNeb treatments and a prescription was provided to case management/social work for discharge planning
[2024-08-29 16:36] VITALS: PULSE 65
--- NOTE | 2024-08-30 08:40 | DS ---
DISCHARGE SUMMARY FINAL DIAGNOSES: 1. Chronic obstructive pulmonary disease acute exacerbation. 2. Paroxysmal atrial fibrillation. 3. Hypothyroidism. 4. Gastroesophageal reflux disease. 5. Multiple medical issues. DISCHARGE DISPOSITION: The patient will be discharged in a stable condition and guarded prognosis. HISTORY OF PRESENT ILLNESS: This is an 83-year-old woman, who was admitted with COPD acute exacerbation. The patient improved significantly with bronchodilators, and the patient is keen on going home and the patient will be discharged in stable condition and guarded prognosis. PHYSICAL EXAMINATION: VITAL SIGNS: Stable. CARDIOVASCULAR: S1, S2 normal. RESPIRATORY: A few scattered rhonchi. DISCHARGE MEDICATIONS: Continue the home medications including bronchodilators, DuoNeb, and Symbicort as well. Please refer to the discharge medication reconciliation for list of medications. MMODL / IJN: [id number] /
== END 2024-08-29 17:00 | disposition home health service (06) | DRG 190 ==
LOC: EC 09:21 → 6NMEDSUR 12:47 → OBSVTOIN 12:47 → 6NMEDSUR 16:37
PROVIDERS: ADMIT Internal Medicine; ATTEND Internal Medicine
PROC: 3E033RZ Introduction of Antiarrhythmic into Peripheral Vein, Percutaneous Approach (ICD-10-PCS; 2024-08-26)
PROC: 5A2204Z Restoration of Cardiac Rhythm, Single (ICD-10-PCS; principal; 2024-08-28 07:30)
DX: J44.1 Chronic obstructive pulmonary disease with (acute) exacerbation (principal); I50.31 Acute diastolic (congestive) heart failure; I13.0 Hypertensive heart and chronic kidney disease with heart failure and stage 1 through stage 4 chronic kidney disease, or unspecified chronic kidney disease; I48.0 Paroxysmal atrial fibrillation; E03.9 Hypothyroidism, unspecified; M06.9 Rheumatoid arthritis, unspecified; N18.30 Chronic kidney disease, stage 3 unspecified; M81.0 Age-related osteoporosis without current pathological fracture; K21.9 Gastro-esophageal reflux disease without esophagitis; Z79.899 Other long term (current) drug therapy; Z79.890 Hormone replacement therapy; Z79.82 Long term (current) use of aspirin; Z91.040 Latex allergy status; Z88.0 Allergy status to penicillin; Z88.2 Allergy status to sulfonamides; Z88.7 Allergy status to serum and vaccine; Z87.891 Personal history of nicotine dependence; Z88.8 Allergy status to other drugs, medicaments and biological substances; Z91.048 Other nonmedicinal substance allergy status; Z79.01 Long term (current) use of anticoagulants; Z79.51 Long term (current) use of inhaled steroids; Z90.710 Acquired absence of both cervix and uterus
CPT/HCPCS: 36415; 71046; 80048; 80053; 83605; 83880; 84439; 84443; 84484; 85025; 85610; 85730; 92960; 93005; 94640; 94760; 96374; 96375; 99285

== ENCOUNTER 2024-12-23 06:50 | Inpatient (IN) | payer MEDICARE ==
[2024-12-23] MEDS: FAMOTIDINE 20 MG/2 ML VIAL IV STA (07:02)
[2024-12-23] MEDS: methylPREDNISolone SOD SUCCI 125 MG/2 ML VIAL IV STA (07:02)
[2024-12-23] MEDS: LABETALOL 5 MG/ML VIAL MDV IVP STA (07:02)
[2024-12-23] MEDS: diphenhydrAMINE 50 MG/ML 1 ML VIAL IVP STA (07:03)
[2024-12-23] MEDS: SODIUM CHLORIDE 0.9% 1,000 ML IV STA (07:03)
[2024-12-23] MEDS: ONDANSETRON 4 MG/2 ML VIAL IVP STA (07:03)
--- NOTE | 2024-12-23 07:18 | CT ---
EXAMINATION TYPE: CODE STROKE: CT brain wo contr DATE OF EXAM: 12/23/2024 7:08 AM COMPARISON: 03/14/2022 CLINICAL INDICATION: Female, 83 years old with history of Neuro deficit, acute, stroke suspected, cod e stroke TECHNIQUE: CT of the brain is performed utilizing 3 mm thick sections through the posterior fossa and 3 mm thick sections through the remaining calvarium. Study is performed within 24 hours of arrival to the hospital. Contrast used: mL of , (none if empty) CT DLP: 1102 mGycm, Automated exposure control for dose reduction was used. FINDINGS: No abnormal hyperdensity is present to suggest an acute intracranial hemorrhage. No mass lesion is evident. No acute infarcts are evident. There is confluent periventricular white matter hypodensity with the b asis of chronic white matter changes present previously. 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 No mass e ffect is evident. There is some mild ex vacuo effect on the lateral ventricles. Ventricles and sulci are prominent for the patient age. Paranasal sinuses and mastoid air cells within the [id number] are clear. IMPRESSION: 1. No acute intracranial process. Follow up MRI can be performed as clinically indicated. 2. Confluent white matter ischemic changes with atrophy. [facility], , 12/23/2024 7:16 AM
--- NOTE | 2024-12-23 07:20 | ED ---
General Adult HPI - General Chief complaint: Neuro Symptoms/Deficit Stated complaint: stroke like symptoms Time Seen by Provider: 12/23/24 07:11 Source: patient, EMS, RN notes reviewed, old records reviewed Mode of arrival: EMS Limitations: altered mental status - History of Present Illness Initial comments: 83-year-old female presenting with slurred speech. Symptoms apparently began at 545 she is presenting at 7 AM. Patient history is obtained from the paramedics and nursing staff. Patient herself is unable to give a significant history she is able to deny pain and answer very simple questions but speech is quite abnormal. Apparently the patient woke at 5 AM and symptoms began at 5:45. She is on Eliquis. - Related Data Home Medications Medication Instructions Recorded Confirmed Folic Acid 1 mg PO DAILY 06/05/18 08/25/24 Montelukast [Singulair] 10 mg PO HS 06/05/18 08/25/24 Albuterol Inhaler [Ventolin Hfa 2 puff INHALATION RT-Q6H PRN 03/14/22 08/25/24 Inhaler] Cholecalciferol [Vitamin D3 (25 50 mcg PO DAILY 03/14/22 08/25/24 Mcg = 1000 Iu)] Ferrous Sulfate [Iron (65 MG 325 mg PO BID 03/14/22 08/25/24 Elemental)] Levothyroxine Sodium [Synthroid] 25 mcg PO DAILY 03/14/22 08/25/24 Leflunomide [Arava] 10 mg PO DAILY 11/24/22 08/25/24 Melatonin 3 mg PO HS 11/24/22 08/25/24 Budesonide/Formoterol Fumarate 2 puff INHALATION RT-BID 07/12/24 08/25/24 [Symbicort 160-4.5 Mcg Inhaler] Carboxymethylcellulose Sodium 1 drop BOTH EYES DAILY 07/12/24 08/25/24 [Refresh Tears] Cyanocobalamin (Vitamin B-12) 1,000 mcg PO DAILY 07/12/24 08/25/24 [Vitamin B-12] Rimegepant Sulfate [Nurtec Odt] 75 mg PO DAILY PRN 07/12/24 08/25/24 bisacodyL [Correctol] 5 mg PO DAILY PRN 07/12/24 08/25/24 Esomeprazole Magnesium [NexIUM] 40 mg PO DAILY 08/25/24 08/25/24 Previous Rx's Medication Instructions Recorded Apixaban [Eliquis] 5 mg PO BID tab 06/10/18 Aspirin 81 mg PO DAILY 10 Days #10 tab 03/23/22 Diltiazem Oral [Cardizem*] 30 mg PO TID 30 Days #90 tab 07/15/24 Metoprolol Tartrate [Lopressor] 50 mg PO BID #60 tab 07/15/24 Nystatin 100,000 Unit/gm Powd 1 applic TOPICAL BID #1 each 07/15/24 [Mycostatin Powder] Dronedarone [Multaq] 400 mg PO AC-BID #60 tab 08/29/24 Ipratropium-Albuterol Nebulize 3 ml INHALATION RT-QID #120 each 08/29/24 [Duoneb 0.5 mg-3 mg/3 ml Soln] predniSONE 10 mg PO DIRECTED #30 tab 08/29/24 Allergies Allergy/AdvReac Type Severity Reaction Status Date / Time adhesive tape Allergy Unknown Verified 08/25/24 13:44 ciprofloxacin [From Cipro] Allergy Unknown Verified 08/25/24 13:44 epinephrine Allergy Unknown Verified 08/25/24 13:44 latex Allergy Rash/Hives Verified 08/25/24 13:44 Penicillins Allergy Unknown Verified 08/25/24 13:44 povidone-iodine Allergy Unknown Verified 08/25/24 13:44 [From Betadine] soap [From Betadine] Allergy Unknown Verified 08/25/24 13:44 Sulfa (Sulfonamide Allergy Unknown Verified 08/25/24 13:44 Antibiotics) Tetanus Vaccines and Toxoid Allergy Unknown Verified 08/25/24 13:44 amitriptyline [From Elavil] AdvReac Confusion Verified 08/25/24 13:44 Review of Systems ROS Statement: Those systems with pertinent positive or pertinent negative responses have been documented in the HPI. ROS Other: All systems not noted in ROS Statement are negative. Past Medical History Past Medical History: Atrial Fibrillation, Asthma, COPD, CVA/TIA, Eye Disorder, GERD/Reflux, Hypertension, Rheumatoid Arthritis (RA), Thyroid Disorder Additional Past Medical History / Comment(s): Other hx: Macular degeneration bilaterally-legally blind, rheumatoid arthritis in multple joints, osteoporosis, migraines, hypothyroid, urinary incontinence at times. History of Any Multi-Drug Resistant Organisms: ESBL Date of last positivie culture/infection: 06/05/18 MDRO Source:: esbl urine Past Surgical History: Appendectomy, Cholecystectomy, Hysterectomy, Orthopedic Surgery, Tonsillectomy Additional Past Surgical History / Comment(s): D&C, colonoscopy, left knee scope, right arm ORIF. Past Anesthesia/Blood Transfusion Reactions: Motion Sickness Additional Past Anesthesia/Blood Transfusion Reaction / Comment(s): severe motion sickness Past Psychological History: No Psychological Hx Reported Smoking Status: Former smoker Past Alcohol Use History: None Reported Past Drug Use History: None Reported - Past Family History Mother Additional Family Medical History / Comment(s): Pt states mother had severe migraines and at the age of 43yrs while hospitalized with severe migraine but does not know cause of . Father Family Medical History: Myocardial Infarction (NC) Additional Family Medical History / Comment(s): Father of a NC at the age of 54yrs. Family Additional Family Medical History / Comment(s): Patient denies any history of coronary artery disease General Exam Limitations: no limitations General appearance: alert, in no apparent distress Head exam: Present: atraumatic, normocephalic Eye exam: Present: normal appearance, PERRL Respiratory exam: Present: normal lung sounds bilaterally. Absent: respiratory distress, wheezes Cardiovascular Exam: Present: regular rate, normal rhythm GI/Abdominal exam: Present: soft. Absent: distended, tenderness, guarding Neurological exam: Present: alert, motor sensory deficit (Neuro exam limited, there is dysarthria and expressive aphasia her limbs are globally weak but symmetric. Unable to assess facial droop. NIH of8). Absent: oriented X3 Skin exam: Present: warm, dry, intact Course Vital Signs 12/23/24 12/23/24 12/23/24 06:54 07:08 07:23 Temperature 98.1 F Pulse Rate 86 70 64 Respiratory 18 18 18 Rate Blood Pressure 186/135 190/98 185/108 O2 Sat by Pulse 96 95 98 Oximetry 12/23/24 12/23/24 12/23/24 07:38 07:53 08:08 Temperature Pulse Rate 61 60 61 Respiratory 18 18 18 Rate Blood Pressure 187/86 195/84 181/83 O2 Sat by Pulse 96 95 93 L Oximetry 12/23/24 08:16 Temperature Pulse Rate 60 Respiratory Rate Blood Pressure O2 Sat by Pulse Oximetry - Reevaluation(s) Reevaluation #1: 12/23/24 07:00 Stroke activation Medical Decision Making - Medical Decision Making Was pt. sent in by a medical professional or institution ([facility]REE Hopkins, [employer] WORKER, urgent care, hospital, or jail...) When possible be specific @ -No Did you speak to anyone other than the patient for history (EMS, parent, family, police, friend...)? What history was obtained from this source @ -No Did you review nursing and triage notes (agree or disagree)? Why? @ -I reviewed and agree with nursing and triage notes Were old charts reviewed (outside hosp., previous admission, EMS record, old EKG, old radiological studies, urgent care reports/EKG's, jail records)? Report findings @ -No old charts were reviewed Differential CVA Ischemic stroke, hemorrhagic stroke, brain tumor, atypical migraine, Wernicke's encephalopathy, seizure, multiple sclerosis, meningitis, encephalitis, hypoglycemia, Guillain-Javed, electrolytes disturbance, myasthenia gravis.... This is not meant to be an all-inclusive list EKG interpreted by me (3pts min.). @EKG: Sinus rhythm right bundle branch block left axis, rate of 62, IL interval 185, QRS duration 133, QTc 462 X-rays interpreted by me (1pt min.). @ -[Chest x-ray showing pulmonary vascular congestion and pulmonary edema consistent with CHF CT interpreted by me (1pt min.). @ -CT brain without contrast, showing volume loss, no intracranial hemorrhage. CT angiography negative for acute occlusion or aneurysmal change. U/S interpreted by me (1pt. min.). @ -None done What testing was considered but not performed or refused? (CT, X-rays, U/S, labs)? Why? @ -None What meds were considered but not given or refused? Why? @ -None Did you discuss the management of the patient with other professionals (professionals i.e. ANDREE Hopkins, [employer] ST[employer] WORKER, lab, RT, psych nurse, outreach and education social worker, pit crane operator, teacher, unclaimed property officer, case checker)? Give summary @ -Dr. Acevedo covering for stroke intervention. Patient not a thrombolytic candidate secondary to being on Eliquis and not a thrombectomy. [facility]. Was smoking cessation discussed for >3mins.? @ -No Was critical care preformed (if so, how long)? @ -Yes, 35 minutes Were there social determinants of health that impacted care today? How? (Homel essness, low income, unemployed, alcoholism, drug addiction, transportation, low edu. Level, literacy, decrease access to med. care, prison, rehab)? @ -No Was there de-escalation of care discussed even if they declined (Discuss DNR or withdrawal of care, Hospice)? DNR status @ -No What co-morbidities impacted this encounter? (DM, HTN, Smoking, COPD, CAD, Cancer, CVA, ARF, Chemo, Hep., AIDS, mental health diagnosis, sleep apnea, morbid obesity)? @ -[Atrial fibrillation on Eliquis Was patient admitted / discharged? Hospital course, mention meds given and route, prescriptions, significant lab abnormalities, going to OR and other pertinent info. @ -This is an 83-year-old female with acute onset speech abnormality facial droop suggestive of CVA. Symptoms began this morning prior to arrival. History is very limited because the patient is not able to adequately communicate symptom onset and she lives alone. The niece who is the next of kin has been notified that the patient is here. Patient went immediately to CAT scan for CT CT angiography of the brain. When CT without contrast was negative for hemorrhage she was given rectal aspirin. Patient will be allowed to remain hypertensive in the acute phase of the CVA. She is admitted to internal medicine with neurology on consult. Undiagnosed new problem with uncertain prognosis? @ -No Drug Therapy requiring intensive monitoring for toxicity (Heparin, Nitro, Insulin, Cardizem)? @ -No Were any procedures done? @ -No Diagnosis/symptom? @CVA, UTI Acute, or Chronic, or Acute on Chronic? @ -Acute Uncomplicated (without systemic symptoms) or Complicated (systemic symptoms)? @ -Default Side effects of treatment? @ -No Exacerbation, Progression, or Severe Exacerbation? @ -No Poses a threat to life or bodily function? How? (Chest pain, USA, NC, pneumonia, PE, COPD, DKA, ARF, appy, cholecystitis, CVA, Diverticulitis, Homicidal, Suicidal, threat to staff... and all critical care pts) @Yes, CVA - Lab Data Result diagrams: 12/23/24 07:20 12/23/24 07:20 Lab Results 12/23/24 12/23/24 12/23/24 Range/Units 07:20 07:20 07:20 WBC 10.89 H (4.50-10.00) 10*3/uL RBC 4.02 L (4.10-5.20) 10*6/uL Hgb 11.7 L (12.0-15.0) g/dL Hct 36.2 L (37.2-46.3) % MCV 90.0 (80.0-97.0) fL MCH 29.1 (27.0-32.0) pg MCHC 32.3 (32.0-37.0) g/dL Plt Count 372 (140-440) 10*3/uL MPV 9.3 L (9.5-12.2) fL Immature Gran % (Auto) 0.3 % Neutrophils % 54.5 % Lymphocytes % 30.9 % Monocytes % 11.1 % Eosinophils % 2.8 % Basophils % 0.4 % Immature Gran # 0.03 (0.00-0.04) 10*3/uL Neutrophils # 5.94 (1.80-7.70) 10*3/uL Lymphocytes # 3.37 (0.90-5.00) 10*3/uL Monocytes # 1.21 H (0.20-1.00) 10*3/uL Eosinophils # 0.30 (0.04-0.35) 10*3/uL Basophils # 0.04 (0.00-0.10) 10*3/uL PT 11.4 (10.0-12.5) sec INR 1.0 (<1.2) APTT 24.0 (22.0-30.0) sec Sodium 137 (137-145) mmol/L Potassium 4.0 (3.5-5.1) mmol/L Chloride 103 (98-107) mmol/L Carbon Dioxide 25 (22-30) mmol/L Anion Gap 9 mmol/L BUN 20 H (7-17) mg/dL Creatinine 1.31 H (0.52-1.04) mg/dL Est GFR (CKD-EPI)AfAm 44 (>60 ml/min/1.73 sqM) Est GFR (CKD-EPI)NonAf 38 (>60 ml/min/1.73 sqM) Glucose 101 H (74-99) mg/dL POC Glucose (mg/dL) (70-110) mg/dL POC Glu [employer] ID Calcium 9.2 (8.4-10.2) mg/dL Total Bilirubin 0.4 (0.2-1.3) mg/dL AST 35 (14-36) U/L ALT 20 (4-34) U/L Alkaline Phosphatase 117 (38-126) U/L Creatine Kinase 58 (30-135) U/L Troponin I (0.000-0.034) ng/mL Total Protein 6.9 (6.3-8.2) g/dL Albumin 3.7 (3.5-5.0) g/dL Urine Color Urine Appearance (Clear) Urine pH (5.0-8.0) Ur Specific [place] (1.001-1.035) Urine Protein (Negative) Urine Glucose (UA) (Negative) Urine Ketones (Negative) Urine Blood (Negative) Urine Nitrite (Negative) Urine Bilirubin (Negative) Urine Urobilinogen (<2.0) mg/dL Ur Leukocyte Esterase (Negative) Urine RBC (0-5) /hpf Urine WBC (0-5) /hpf Ur Squamous Epith Cells (0-4) /hpf Urine Bacteria (None) /hpf Hyaline Casts (0-2) /lpf Urine Mucus (None) /hpf Urine Opiates Screen (NotDetected) Ur Oxycodone Screen (NotDetected) Urine Methadone Screen (NotDetected) Ur Barbiturates Screen (NotDetected) U Tricyclic Antidepress (NotDetected) Ur Phencyclidine Scrn (NotDetected) Ur Amphetamines Screen (NotDetected) U Methamphetamines Scrn (NotDetected) U Benzodiazepines Scrn (NotDetected) Urine Cocaine Screen (NotDetected) U Marijuana (THC) Screen (NotDetected) 12/23/24 12/23/24 12/23/24 Range/Units 07:20 07:21 07:41 WBC (4.50-10.00) 10*3/uL RBC (4.10-5.20) 10*6/uL Hgb (12.0-15.0) g/dL Hct (37.2-46.3) % MCV (80.0-97.0) fL MCH (27.0-32.0) pg MCHC (32.0-37.0) g/dL Plt Count (140-440) 10*3/uL MPV (9.5-12.2) fL Immature Gran % (Auto) % Neutrophils % % Lymphocytes % % Monocytes % % Eosinophils % % Basophils % % Immature Gran # (0.00-0.04) 10*3/uL Neutrophils # (1.80-7.70) 10*3/uL Lymphocytes # (0.90-5.00) 10*3/uL Monocytes # (0.20-1.00) 10*3/uL Eosinophils # (0.04-0.35) 10*3/uL Basophils # (0.00-0.10) 10*3/uL PT (10.0-12.5) sec INR (<1.2) APTT (22.0-30.0) sec Sodium (137-145) mmol/L Potassium (3.5-5.1) mmol/L Chloride (98-107) mmol/L Carbon Dioxide (22-30) mmol/L Anion Gap mmol/L BUN (7-17) mg/dL Creatinine (0.52-1.04) mg/dL Est GFR (CKD-EPI)AfAm (>60 ml/min/1.73 sqM) Est GFR (CKD-EPI)NonAf (>60 ml/min/1.73 sqM) Glucose (74-99) mg/dL POC Glucose (mg/dL) 91 (70-110) mg/dL POC Glu [employer] [employer] [facility] Calcium (8.4-10.2) mg/dL Total Bilirubin (0.2-1.3) mg/dL AST (14-36) U/L ALT (4-34) U/L Alkaline Phosphatase (38-126) U/L Creatine Kinase (30-135) U/L Troponin I <0.012 (0.000-0.034) ng/mL Total Protein (6.3-8.2) g/dL Albumin (3.5-5.0) g/dL Urine Color Colorless Urine Appearance Cloudy H (Clear) Urine pH 5.5 (5.0-8.0) Ur Specific [place] 1.033 (1.001-1.035) Urine Protein Negative (Negative) Urine Glucose (UA) Negative (Negative) Urine Ketones Negative (Negative) Urine Blood Trace H (Negative) Urine Nitrite Positive H (Negative) Urine Bilirubin Negative (Negative) Urine Urobilinogen <2.0 (<2.0) mg/dL Ur Leukocyte Esterase Large H (Negative) Urine RBC 10 H (0-5) /hpf Urine WBC 169 H (0-5) /hpf Ur Squamous Epith Cells <1 (0-4) /hpf Urine Bacteria Rare H (None) /hpf Hyaline Casts 1 (0-2) /lpf Urine Mucus Rare H (None) /hpf Urine Opiates Screen Not Detected (NotDetected) Ur Oxycodone Screen Not Detected (NotDetected) Urine Methadone Screen Not Detected (NotDetected) Ur Barbiturates Screen Detected H (NotDetected) U Tricyclic Antidepress Not Detected (NotDetected) Ur Phencyclidine Scrn Not Detected (NotDetected) Ur Amphetamines Screen Not Detected (NotDetected) U Methamphetamines Scrn Not Detected (NotDetected) U Benzodiazepines Scrn Not Detected (NotDetected) Urine Cocaine Screen Not Detected (NotDetected) U Marijuana (THC) Screen Not Detected (NotDetected) Critical Care Time Critical Care Time: Yes Total Critical Care Time: 35 Disposition Clinical Impression: Pulmonary edema, UTI (urinary tract infection), Altered mental status, Cerebrovascular accident (CVA) Disposition: ADMITTED IP TO THIS [facility] Condition: Serious Is patient prescribed a controlled substance at d/c from ED?: No Referrals: None,Stated [Primary Care Provider] - 1-2 days Time of Disposition: 08:50
[2024-12-23 07:23] LABS: Glucose,Whole Blood 91 mg/dL (70-110)
[2024-12-23 07:42] LABS: Basophils # (A) 0.04 10*3/uL (0.00-0.10); Basophils % (A) 0.4 %; Eosinophils % (A) 2.8 %; HCT 36.2 % (37.2-46.3); HGB 11.7 g/dL (12.0-15.0); Lymphocytes # (A) 3.37 10*3/uL (0.90-5.00); Lymphocytes % (A) 30.9 %; MCH 29.1 pg (27.0-32.0); MCHC 32.3 g/dL (32.0-37.0); Mean Platelet Volume 9.3 fL (9.5-12.2); Monocytes # (A) 1.21 10*3/uL (0.20-1.00); Monocytes % (A) 11.1 %; Neutrophils # (A) 5.94 10*3/uL (1.80-7.70); Neutrophils % (A) 54.5 %; Platelet Count 372 10*3/uL (140-440); RBC 4.02 10*6/uL (4.10-5.20); RDW 15.9 % (11.5-14.5); WBC 10.89 10*3/uL (4.50-10.00)
--- NOTE | 2024-12-23 07:42 | CT ---
EXAMINATION TYPE: CT angio head neck DATE OF EXAM: 12/23/2024 7:26 AM COMPARISON: None. CLINICAL INDICATION: Female, 83 years old with history of Neuro deficit, acute, stroke suspected, AMS TECHNIQUE: CTA scan is performed with axial images are obtained, coronal and sagittal reformatted denny ges are reviewed. MIP images created on a separate workstation and submitted for review. 3-D reconstr ucted images are created on an independent workstation and reviewed. Source images are reviewed. NKECHI CET criteria was used in interpretation of this exam. Motion artifact limits portions of the elim ira o f Ivy? Contrast used:65 mL of Isovue 370 with IV Contrast, (none if empty) Oral contrast used: (none if empty) CT DLP: 412.5 mGycm, Automated exposure control for dose reduction was used. FINDINGS: Carotid/Vascular Structures: There is a 3 vessel arch. Common carotid arteries bifurcate into internal and external carotid arteries. Atheromatous plaquing of the right contributing to moderate narrowing measuring 56%. On the right this is mild narrowing of 47%. Left vertebral artery may be dominant. Internal carotid arteries and vertebral arteries are patent to the skull base. Cervical of Ivy: Left vertebral artery may terminate in the PICA. Left posterior cerebral artery i s not well visualized. Right A1 segment is severely hypoplastic The anterior communicating artery is patent. The right posterior communicating artery is absent. The left posterior communicating artery is patent. IMPRESSION: 1. Moderate narrowing of 56% of the right internal carotid artery. 2. Mild narrowing of the left internal carotid artery 47%. 3. There appear to be normal variations within the elim ira of Ivy. These appear to be predominantly right side however with a hypoplastic A1 segment and a less well-visualized right posterior cerebral artery [facility], , 12/23/2024 7:40 AM
[2024-12-23 07:59] LABS: ALT 20 U/L (4-34); AST 35 U/L (14-36); African American GFR (CKD) 44 (>60 ml/min/1.73 sqM); Albumin 3.7 g/dL (3.5-5.0); Alkaline Phosphatase 117 U/L (38-126); Anion Gap 9 mmol/L; Blood Urea Nitrogen 20 mg/dL (7-17); Calcium 9.2 mg/dL (8.4-10.2); Carbon Dioxide 25 mmol/L (22-30); Chloride 103 mmol/L (98-107); Creatine Kinase 58 U/L (30-135); Glucose 101 mg/dL (74-99); Non-African American GFR(CKD) 38 (>60 ml/min/1.73 sqM); Sodium 137 mmol/L (137-145); Total Bilirubin 0.4 mg/dL (0.2-1.3); Total Protein 6.9 g/dL (6.3-8.2)
[2024-12-23 08:01] LABS: Prothrombin Time 11.4 sec (10.0-12.5)
--- NOTE | 2024-12-23 08:03 | XR ---
EXAMINATION TYPE: XR chest 1V portable DATE OF EXAM: 12/23/2024 7:56 AM COMPARISON: 08/25/2024 CLINICAL INDICATION: Female, 83 years old with history of altered mental status, TECHNIQUE: XR chest 1V portable view(s) obtained. FINDINGS: The heart size is mildly prominent. The pulmonary vasculature is prominent. Diffuse increased lung markings are present. Correlate for pulmonary edema. IMPRESSION: 1. Pulmonary edema. Consider congestive heart failure. Follow-up recommended. [facility], , 12/23/2024 8:01 AM
[2024-12-23 08:05] LABS: Appearance,Urine Cloudy (Clear); Bacteria,Urine Rare /hpf; Bilirubin,Urine Negative (Negative); Blood,Urine Trace (Negative); Color,Urine Colorless; Glucose,Urine (UA) Negative (Negative); Hyaline Casts,Urine 1 /lpf (0-2); Ketones,Urine Negative (Negative); Leukocyte Esterase,Urine Large (Negative); Mucus,Urine Rare /hpf; Nitrite,Urine Positive (Negative); PH, Urine 5.5 (5.0-8.0); Protein,Urine Negative (Negative); RBC,Urine 10 /hpf (0-5); Specific Gravity,Urine 1.033 (1.001-1.035); Squamous Epithelial Cell,Urine <1 /hpf (0-4); Urobilinogen,Urine <2.0 mg/dL (<2.0); WBC,Urine 169 /hpf (0-5)
[2024-12-23] MEDS: ASPIRIN 325 MG TAB PO STA (08:11)
[2024-12-23 08:21] LABS: Amphetamine Screen,Urine Not Detected (NotDetected); Benzodiazepines Screen,Urine Not Detected (NotDetected); Cocaine Screen,Urine Not Detected (NotDetected); Methadone Screen, Urine Not Detected (NotDetected); Opiate Screen,Urine Not Detected (NotDetected); Phencyclidine Screen,Urine Not Detected (NotDetected); Tricyclic Antidepressant,Urine Not Detected (NotDetected); Urn Cannabinoid Scrn Not Detected (NotDetected)
[2024-12-23 08:22] LABS: Barbiturate Screen,Urine Detected (NotDetected); Oxycodone Screen, Urine Not Detected (NotDetected)
[2024-12-23] MEDS: SODIUM CHLORIDE 0.9% 1,000 ML IV SCH (08:40)
[2024-12-23] MEDS: ASPIRIN 300 MG SUPP RECTAL STA (08:40)
[2024-12-23] MEDS: cefTRIAXone IN SWFI 1,000 MG/10 ML SYRINGE IVP STA (08:41)
[2024-12-23] MEDS: FUROSEMIDE 10 MG/ML 4 ML VIAL IV STA (09:15)
[2024-12-23] MEDS: NYSTATIN 100,000 UNIT/GM POWD 15 GM TOPICAL SCH (09:16)
--- NOTE | 2024-12-23 11:09 | P.HPIM ---
History of Present Illness 83-year-old female came in complaints of slurred speech that started today morning at 5:45 AM. Patient does not have any other focal weakness. Patient does have history of atrial fibrillation on Eliquis at home. Patient also has chronic heart failure history chronic diastolic function. Patient has pulm edema on exam patient does have elevated JVD as well. Patient denied any UTI symptoms urine is significant. Mildly abnormal because of which patient was started on antibiotics patient has asymptomatic bacteriuria. CT of the head was done which showed periventricular white matter ischemic changes and patient does have right-sided facial droop as well. CT angio of the head did not show any significant abnormality neurology was consulted physical therapy Occupational Therapy and speech therapy were consulted. REVIEW OF SYSTEMS: All other systems are negative except those mentioned in the HPI PHYSICAL EXAMINATION: GENERAL: The patient is alert and oriented x3, not in any acute distress. Well developed, well nourished. HEENT: Pupils are round and equally reacting to light. EOMI. No scleral icterus. No conjunctival pallor. Normocephalic, atraumatic. No pharyngeal erythema. No thyromegaly. CARDIOVASCULAR: S1 and S2 present. No murmurs, rubs, or gallops. PULMONARY: Expiratory wheezing on exam ABDOMEN: Soft, nontender, nondistended, normoactive bowel sounds. No palpable organomegaly. MUSCULOSKELETAL: No joint swelling or deformity. EXTREMITIES: No cyanosis, clubbing, or pedal edema. NEUROLOGICAL: Motor aphasia as mentioned above along with right-sided facial droop. SKIN: No rashes. Assessment and plan -Cerebrovascular accident probably embolic in nature involving the frontal and parietal lobes on the left side from her atrial fibrillation patient is on Eliquis at home which I am holding until neurology evaluate the patient, patient will need stroke workup MRI hemoglobin A1c lipid panel PT and OT consultation speech therapy consultation patient failed swallow bedside swallow evaluation. -Paroxysmal atrial fibrillation patient will be resumed on rate control medications - Congestive heart failure: Chronic diastolic function with acute exacerbation patient was given a dose of IV Lasix and patient started back on 20 mg IV twice daily of Lasix which will be continued - COPD with mild acute exacerbation patient will be started on inhaled steroids inhalational treatments patient quit smoking -Asymptomatic bacteriuria will not require any antibiotics -Hypertension - Gastroesophageal flux disease - Hypothyroidism For above-mentioned chronic medical problems patient will be resumed on a ppropriate home medications DVT prophylaxis: If neurology is okay patient will be started on Eliquis Past Medical History Past Medical History: Atrial Fibrillation, Asthma, COPD, CVA/TIA, Eye Disorder, GERD/Reflux, Hypertension, Rheumatoid Arthritis (RA), Thyroid Disorder Additional Past Medical History / Comment(s): Other hx: Macular degeneration bilaterally-legally blind, rheumatoid arthritis in multple joints, osteoporosis, migraines, hypothyroid, urinary incontinence at times. History of Any Multi-Drug Resistant Organisms: ESBL Date of last positivie culture/infection: 06/05/18 MDRO Source:: esbl urine Past Surgical History: Appendectomy, Cholecystectomy, Hysterectomy, Orthopedic Surgery, Tonsillectomy Additional Past Surgical History / Comment(s): D&C, colonoscopy, left knee scope, right arm ORIF. Past Anesthesia/Blood Transfusion Reactions: Motion Sickness Additional Past Anesthesia/Blood Transfusion Reaction / Comment(s): severe motion sickness Past Psychological History: No Psychological Hx Reported Smoking Status: Former smoker Past Alcohol Use History: None Reported Past Drug Use History: None Reported - Past Family History Mother Additional Family Medical History / Comment(s): Pt states mother had severe migraines and at the age of 43yrs while hospitalized with severe migraine but does not know cause of . Father Family Medical History: Myocardial Infarction ([place]) Additional Family Medical History / Comment(s): Father of a [place] at the age of 54yrs. Family Additional Family Medical History / Comment(s): Patient denies any history of coronary artery disease Medications and Allergies Home Medications Medication Instructions Recorded Confirmed Type Apixaban [Eliquis] 5 mg PO BID tab 06/10/18 12/23/24 Rx Cholecalciferol [Vitamin D3 (25 25 mcg PO HS 03/14/22 12/23/24 History Mcg = 1000 Iu)] Levothyroxine Sodium [Synthroid] 25 mcg PO DAILY 03/14/22 12/23/24 History Melatonin 3 mg PO HS 11/24/22 12/23/24 History Cyanocobalamin (Vitamin B-12) 1,000 mcg PO DAILY 07/12/24 12/23/24 History [Vitamin B-12] Amiodarone [Cordarone] 200 mg PO BID 12/23/24 12/23/24 History Biotin [Biotin Disolve] 10,000 mcg PO DAILY 12/23/24 12/23/24 History Butalb/Acetaminophen/Caffeine 1 - 2 cap PO BID PRN MDD 4 CAPS 12/23/24 12/23/24 History [Fioricet 50-300-40 mg Capsule] Cholecalciferol (Vitamin D3) 50 mcg PO DAILY 12/23/24 12/23/24 History [Vitamin D3 (50 Mcg = 2000 Iu)] Ipratropium-Albuterol Nebulize 3 ml INHALATION RT-QID PRN 12/23/24 12/23/24 History [Duoneb 0.5 mg-3 mg/3 ml Soln] lisinopriL [Zestril] 10 mg PO DAILY 12/23/24 12/23/24 History traMADol HCL 50 mg PO DAILY 12/23/24 12/23/24 History Allergies Allergy/AdvReac Type Severity Reaction Status Date / Time adhesive tape Allergy Unknown Verified 12/23/24 08:49 ciprofloxacin [From Cipro] Allergy Unknown Verified 12/23/24 08:49 epinephrine Allergy Unknown Verified 12/23/24 08:49 latex Allergy Rash/Hives Verified 12/23/24 08:49 Penicillins Allergy Unknown Verified 12/23/24 08:49 povidone-iodine Allergy Unknown Verified 12/23/24 08:49 [From Betadine] soap [From Betadine] Allergy Unknown Verified 12/23/24 08:49 Sulfa (Sulfonamide Allergy Unknown Verified 12/23/24 08:49 Antibiotics) Tetanus Vaccines and Toxoid Allergy Unknown Verified 12/23/24 08:49 amitriptyline [From Elavil] AdvReac Confusion Verified 12/23/24 08:49 Physical Exam Vitals: Vital Signs Temp Pulse Resp BP Pulse Ox 12/23/24 10:33 64 18 164/81 98 12/23/24 09:42 56 L 18 165/71 99 12/23/24 09:08 61 18 156/76 95 12/23/24 08:42 66 18 171/76 94 L 12/23/24 08:38 64 18 176/93 95 12/23/24 08:23 64 18 146/119 95 12/23/24 08:16 60 12/23/24 08:08 61 18 181/83 93 L 12/23/24 07:53 60 18 195/84 95 12/23/24 07:38 61 18 187/86 96 12/23/24 07:23 64 18 185/108 98 12/23/24 07:08 70 18 190/98 95 12/23/24 06:54 98.1 F 86 18 186/135 96 Intake and Output 12/22/24 12/23/24 12/23/24 22:59 06:59 14:59 Other: Weight 69.581 kg Results CBC & Chem 7: 12/23/24 07:20 12/23/24 07:20 Labs: Abnormal Lab Results - Last 24 Hours (Table) 12/23/24 12/23/24 12/23/24 Range/Units 07:20 07:20 07:41 WBC 10.89 H (4.50-10.00) 10*3/uL RBC 4.02 L (4.10-5.20) 10*6/uL Hgb 11.7 L (12.0-15.0) g/dL Hct 36.2 L (37.2-46.3) % MPV 9.3 L (9.5-12.2) fL Monocytes # 1.21 H (0.20-1.00) 10*3/uL BUN 20 H (7-17) mg/dL Creatinine 1.31 H (0.52-1.04) mg/dL Glucose 101 H (74-99) mg/dL Urine Appearance Cloudy H (Clear) Urine Blood Trace H (Negative) Urine Nitrite Positive H (Negative) Ur Leukocyte Esterase Large H (Negative) Urine RBC 10 H (0-5) /hpf Urine WBC 169 H (0-5) /hpf Urine Bacteria Rare H (None) /hpf Urine Mucus Rare H (None) /hpf Ur Barbiturates Screen Detected H (NotDetected)
[2024-12-23] MEDS: AMIODARONE 200 MG TAB PO SCH (11:52)
[2024-12-23 13:12] LABS: T4, Free (Free Thyroxine) 1.34 ng/dL (0.78-2.19)
--- NOTE | 2024-12-23 15:30 | P.CNNES ---
History of Present Illness Consult date: 12/23/24 Reason for Consult: Stroke History of Present Illness: The patient is an 83-year-old female who is seen in neurologic consultation on December 23, 2024, in collaboration with Malinda Bañuelos, via teleneurology. The patient reportedly awoke this morning with speech difficulty. She has a history of atrial fibrillation, on Eliquis. According to the patient and her niece who is present at the bedside at the time of the evaluation, they do not b elieve that the patient has missed any doses of her Eliquis. The patient is blind however and does not set up her own medication. Apparently there is a neighbor who does this for her. The patient reports that she came into the hospital because when she awoke this morning, she was noticing slurring of her speech and difficulty walking. She says that she had difficulty getting her legs to move the way they were supposed to. The patient reportedly lives alone. She does state that last p.m. and early this morning, she had a headache. Patient does have a history of migraines. She believes that this headache was consistent with her usual migraine. This morning however, patient had weakness in both of her legs. She denies falling. She does report difficulty with speech. In the emergency department, CT scan of the brain was performed. There is no reported evidence of acute hemorrhage or infarct. CT angiogram of the head and neck was performed. There was no reported significant stenosis or large vessel occlusion. The [facility] stroke team was contacted regarding TNK or intervention. The patient was deemed to not be a candidate, because of her Eliquis. In the emergency department, the patient's blood pressure was elevated at 186/135. The patient does have a history of COPD, atrial fibrillation, hypertension, rheumatoid arthritis, hyperlipidemia, gastroesophageal reflux disease. Review of Systems Unable to accurately obtain Past Medical History Past Medical History: Atrial Fibrillation, Asthma, COPD, CVA/TIA, Eye Disorder, GERD/Reflux, Hypertension, Rheumatoid Arthritis (RA), Thyroid Disorder Additional Past Medical History / Comment(s): Other hx: Macular degeneration bilaterally-legally blind, rheumatoid arthritis in multple joints, osteoporosis, migraines, hypothyroid, urinary incontinence at times. History of Any Multi-Drug Resistant Organisms: ESBL Date of last positivie culture/infection: 06/05/18 MDRO Source:: esbl urine Past Surgical History: Appendectomy, Cholecystectomy, Hysterectomy, Orthopedic Surgery, Tonsillectomy Additional Past Surgical History / Comment(s): D&C, colonoscopy, left knee scope, right arm ORIF. Past Anesthesia/Blood Transfusion Reactions: Motion Sickness Additional Past Anesthesia/Blood Transfusion Reaction / Comment(s): severe motion sickness Past Psychological History: No Psychological Hx Reported Smoking Status: Former smoker Past Alcohol Use History: None Reported Past Drug Use History: None Reported - Past Family History Mother Additional Family Medical History / Comment(s): Pt states mother had severe migraines and at the age of 43yrs while hospitalized with severe migraine but does not know cause of . Father Family Medical History: Myocardial Infarction ([place]) Additional Family Medical History / Comment(s): Father of a [place] at the age of 54yrs. Family Additional Family Medical History / Comment(s): Patient denies any history of coronary artery disease Medications and Allergies Home Medications Medication Instructions Recorded Confirmed Type Apixaban [Eliquis] 5 mg PO BID tab 06/10/18 12/23/24 Rx Cholecalciferol [Vitamin D3 (25 25 mcg PO HS 03/14/22 12/23/24 History Mcg = 1000 Iu)] Levothyroxine Sodium [Synthroid] 25 mcg PO DAILY 03/14/22 12/23/24 History Melatonin 3 mg PO HS 11/24/22 12/23/24 History Cyanocobalamin (Vitamin B-12) 1,000 mcg PO DAILY 07/12/24 12/23/24 History [Vitamin B-12] Amiodarone [Cordarone] 200 mg PO BID 12/23/24 12/23/24 History Biotin [Biotin Disolve] 10,000 mcg PO DAILY 12/23/24 12/23/24 History Butalb/Acetaminophen/Caffeine 1 - 2 cap PO BID PRN MDD 4 CAPS 12/23/24 12/23/24 History [Fioricet 50-300-40 mg Capsule] Cholecalciferol (Vitamin D3) 50 mcg PO DAILY 12/23/24 12/23/24 History [Vitamin D3 (50 Mcg = 2000 Iu)] Ipratropium-Albuterol Nebulize 3 ml INHALATION RT-QID PRN 12/23/24 12/23/24 History [Duoneb 0.5 mg-3 mg/3 ml Soln] lisinopriL [Zestril] 10 mg PO DAILY 12/23/24 12/23/24 History traMADol HCL 50 mg PO DAILY 12/23/24 12/23/24 History Allergies Allergy/AdvReac Type Severity Reaction Status Date / Time adhesive tape Allergy Unknown Verified 12/23/24 08:49 ciprofloxacin [From Cipro] Allergy Unknown Verified 12/23/24 08:49 epinephrine Allergy Unknown Verified 12/23/24 08:49 latex Allergy Rash/Hives Verified 12/23/24 08:49 Penicillins Allergy Unknown Verified 12/23/24 08:49 povidone-iodine Allergy Unknown Verified 12/23/24 08:49 [From Betadine] soap [From Betadine] Allergy Unknown Verified 12/23/24 08:49 Sulfa (Sulfonamide Allergy Unknown Verified 12/23/24 08:49 Antibiotics) Tetanus Vaccines and Toxoid Allergy Unknown Verified 12/23/24 08:49 amitriptyline [From Elavil] AdvReac Confusion Verified 12/23/24 08:49 Physical Examination - Vital Signs Vital Signs: Vital Signs Temp Pulse Resp BP Pulse Ox 12/23/24 09:42 56 L 18 165/71 99 12/23/24 09:08 61 18 156/76 95 12/23/24 08:42 66 18 171/76 94 L 12/23/24 08:38 64 18 176/93 95 12/23/24 08:23 64 18 146/119 95 12/23/24 08:16 60 12/23/24 08:08 61 18 181/83 93 L 12/23/24 07:53 60 18 195/84 95 12/23/24 07:38 61 18 187/86 96 12/23/24 07:23 64 18 185/108 98 12/23/24 07:08 70 18 190/98 95 12/23/24 06:54 98.1 F 86 18 186/135 96 Intake and Output 12/22/24 12/23/24 12/23/24 22:59 06:59 14:59 Other: Weight 69.581 kg General: The patient is reclining on the gurney in the emergency department. She is well-nourished, well-developed. She is in no acute distress. HEENT: Head is atraumatic, normocephalic. Fundus not visualized. There is no scleral icterus. Mucous membranes are moist. Neck: Supple without carotid bruits Heart: Regular rate and rhythm Lungs: Essentially clear to auscultation. The patient does have a wet cough Extremities: Without edema Neurological examination Mental status: The patient is awake and alert. Speech is markedly slurred, however it is understandable. The patient is oriented x 3. She is aware of her situation. Cranial nerves: Pupils are equal, and reactive at 3 mm. Visual paez are full to confrontation. Extraocular movements are intact . There is no nystagmus. Facial sensation is intact. There is a right facial droop. Hearing is grossly intact. Uvula and palate are midline. Shoulder shrug is symmetric. Tongue protrudes midline. Motor: Strength (R/L) furniture mover 5/5. Biceps 5/5. Triceps 5/5. Hip flexors 4/5. Ankle plantar and dorsiflexors 5/5. Sensation: Light touch sensation is intact throughout. There is no extinction with double simultaneous stimulation. Coordination: [place]-av-agad and rapid alternating movements are intact. There is no pronator drift. Deep tendon reflexes: 3+/4+ at the bilateral brachioradialis reflexes. Bilateral patellar reflexes 2+/4+. Plantar responses flexor bilaterally. Gait: Not assessed Results CT scan of the brain images have been personally viewed. I agree with the radiology report - Laboratory Findings CBC and BMP: 12/23/24 07:20 12/23/24 07:20 Abnormal Lab Findings: Abnormal Labs 12/23/24 12/23/24 12/23/24 07:20 07:20 07:41 WBC 10.89 H RBC 4.02 L Hgb 11.7 L Hct 36.2 L MPV 9.3 L Monocytes # 1.21 H BUN 20 H Creatinine 1.31 H Glucose 101 H Urine Appearance Cloudy H Urine Blood Trace H Urine Nitrite Positive H Ur Leukocyte Esterase Large H Urine RBC 10 H Urine WBC 169 H Urine Bacteria Rare H Urine Mucus Rare H Ur Barbiturates Screen Detected H Assessment and Plan Assessment: The patient is an 83-year-old female with slurred speech and right-sided weakness 1. The patient likely suffered a left middle cerebral artery territory, lacunar infarct 2. History of atrial fibrillation on Eliquis 3. History of hyperlipidemia 4. History of hypertension 5. History of COPD 6. Pulmonary edema and congestive heart failure Plan: 1. Stroke order set has been placed 2. MRI of the brain has been ordered to further evaluate for cerebral ischemia 3. The patient should remain on Eliquis 5 mg twice daily with the addition of aspirin 81 mg for further stroke prevention 4. High-dose statin should be continued 5. 2D echocardiogram should be ordered 6. Speech therapy consultation regarding swallow eval 7. Dr. Erwin will assume neurologic coverage of this patient as of December 24, 2024 Thank you for allowing us to participate in the care of this patient Time with Patient: Greater than 30 (65 minutes were spent caring for this patient today including, obtaining history, examining patient, reviewing imaging, chart documentation, labs, placing orders and creating this note)
[2024-12-23] MEDS: BUDESONIDE 0.5 MG/2 ML NEBU INHALATION SCH (19:58)
[2024-12-23] MEDS: FUROSEMIDE 10 MG/ML 2 ML VIAL IV SCH (20:12)
[2024-12-23] MEDS ORDERED: FUROSEMIDE 10 MG/ML 4 ML VIAL IV SCH (21:00)
[2024-12-24] MEDS: LEVOTHYROXINE 25 MCG TAB PO SCH (06:04)
[2024-12-24] MEDS: IPRATROPIUM-ALBUTEROL 3 ML NEB INHALATION PRN (09:08)
[2024-12-24 09:34] LABS: Chol/HDL Ratio 2.97 Ratio; LDL Cholesterol,Calculated 127.3 mg/dL (0.0-131.0)
[2024-12-24] MEDS: ASPIRIN 300 MG SUPP RECTAL SCH (09:36)
[2024-12-24 10:10] LABS: Basophils # (A) 0.06 10*3/uL (0.00-0.10); Basophils % (A) 0.5 %; Eosinophils # (A) 0.03 10*3/uL (0.04-0.35); Eosinophils % (A) 0.3 %; HCT 40.2 % (37.2-46.3); Lymphocytes # (A) 3.97 10*3/uL (0.90-5.00); Lymphocytes % (A) 35.5 %; MCH 29.3 pg (27.0-32.0); MCHC 32.3 g/dL (32.0-37.0); MCV 90.5 fL (80.0-97.0); Mean Platelet Volume 9.6 fL (9.5-12.2); Monocytes # (A) 1.32 10*3/uL (0.20-1.00); Monocytes % (A) 11.8 %; Neutrophils # (A) 5.78 10*3/uL (1.80-7.70); Neutrophils % (A) 51.6 %; Platelet Count 372 10*3/uL (140-440); RBC 4.44 10*6/uL (4.10-5.20); RDW 15.9 % (11.5-14.5); WBC 11.19 10*3/uL (4.50-10.00)
[2024-12-24] MEDS: ALPRAZolam 0.25 MG TAB PO ONE (10:51)
--- NOTE | 2024-12-24 11:59 | MR ---
INDICATION: Patient age:Female; 84 years old; Reason for study: CVA; PHH. COMPARISON: CT brain 12/23/2024, 03/14/2022, 06/11/2019, CTA head and neck 12/23/2024, MRI brain 03/16/2022. TECHNIQUE: Multi planar, multi sequence imaging was performed through the brain without administratio n intravenous contrast. FINDINGS: Encephalomalacia with gliosis identified within the right frontal lobe again. A few foci of restricte d diffusion within the left frontal and parietal lobes with dark appearance on ADC map. Mild prominen ce of the ventricular system and peripheral sulci consistent with age-appropriate diffuse cerebral vo lume loss. Intracranial arterial flow voids are maintained. Midline structures show no abnormality. Similar conf luent areas of high T2/FLAIR signal intensity are seen within the supratentorial periventricular and subcortical white matter. The bone marrow signal is within normal limits. The paranasal sinuses are unremarkable. Bilateral ap hakia. IMPRESSION: 1. Few foci of restricted diffusion within the left frontal and parietal lobes consistent with acute/ subacute ischemia. 2. Advanced nonspecific white matter changes, likely related to small vessel ischemic disease. 3. Remote ischemic injury within the right frontal lobe. [facility], , 12/24/2024 11:57 AM
[2024-12-24] MEDS: ACETAMINOPHEN IV (For NPO) 1,000 MG in EMPTY BAG 1 BAG IVPB PRN (12:37)
--- NOTE | 2024-12-24 14:07 | CA ---
Transthoracic Echo Report Name: Radhika Duncan Age: 84 Gender: F : 1940 Exam Date: 12/24/2024 09:54 Exam Location: [facility] Ht (in): 57 Wt (lb): 153 Ordering Physician: aCssie Alvarez DO Attending/Referring Phys: [employer] Director Merced Pérez RDCS Procedure CPT: Indications: CVA, CHF Cardiac Hx: Technical Quality: Good Contrast 1: Agitated Saline Total Dose (mL): 9 Contrast 2: Total Dose (mL): MEASUREMENTS (Male / Female) Normal Values 2D ECHO LV Diastolic Diameter PLAX 5.0 cm 4.2 - 5.9 / 3.9 - 5.3 cm LV Systolic Diameter PLAX 3.2 cm IVS Diastolic Thickness 1.2 cm 0.6 - 1.0 / 0.6 - 0.9 cm LVPW Diastolic Thickness 1.1 cm 0.6 - 1.0 / 0.6 - 0.9 cm LV Relative Wall Thickness 0.5 RV Internal Dim ED PLAX 3.1 cm LA Systolic Diameter LX 4.3 cm 3.0 - 4.0 / 2.7 - 3.8 cm LV Diastolic Volume MOD 4C 77.0 cm??? LV Systolic Volume MOD 4C 27.8 cm??? LV Ejection Fraction MOD 4C 63.9 % LV Cardiac Index MOD 4C 2050.6 cm???/min???m??? LV Diastolic Length 4C 7.7 cm LV Systolic Length 4C 6.4 cm LV Diastolic Volume MOD 2C 38.7 cm??? LV Systolic Volume MOD 2C 20.5 cm??? LV Ejection Fraction MOD 2C 47.0 % LV Cardiac Index MOD 2C 757.8 cm???/min???m??? LV Diastolic Length 2C 7.0 cm LV Systolic Length 2C 5.6 cm M-MODE Aortic Root Diameter MM 2.9 cm DOPPLER AV Peak Velocity 145.2 cm/s AV Peak Gradient 8.4 mmHg AI Peak Velocity 392.4 cm/s AI Peak Gradient 61.6 mmHg AI Pressure Half Time 695.1 ms Mitral E Point Velocity 161.9 cm/s Mitral A Point Velocity 105.8 cm/s Mitral E to A Ratio 1.5 MV Deceleration Time 238.5 ms TR Peak Velocity 299.2 cm/s TR Peak Gradient 35.8 mmHg Right Ventricular Systolic Press 45.8 mmHg FINDINGS Left Ventricle Left ventricular ejection fraction is estimated at 55-60 %. Mildly increased septal wall thickness. Mildly increased posterior wall thickness. No obvious regional wall motion abnormalities. Right Ventricle Normal right ventricular size and function. Moderate pulmonary hypertension. Right Atrium Normal right atrial size. No right atrial thrombus or mass seen. Negative agitated saline bubble study for right to left shunt. Left Atrium Moderately increased left atrial diameter. No left atrial thrombus or mass present. Mitral Valve Moderate thickening/calcification of the anterior mitral valve leaflet. Moderate thickening/calcification of the posterior mitral valve leaflet. Mild mitral annular calcification. Trace to mild mitral regurgitation. Aortic Valve Trileaflet aortic valve. Aortic valve sclerosis. Mild aortic regurgitation. Tricuspid Valve Structurally normal tricuspid valve. Mild tricuspid regurgitation. Pulmonic Valve Structurally normal pulmonic valve. Trace to mild pulmonic regurgitation. Pericardium No pericardial effusion. Aorta Normal size aortic root and proximal ascending aorta. CONCLUSIONS Left ventricular ejection fraction is estimated at 55-60 %. No obvious regional wall motion abnormalities. Mild concentric LVH Grade 2 diastolic function Thickened and calcified mitral leaflets with mild mitral regurgitation Moderate left atrial dilatation Mild aortic regurgitation No evidence of [id number] intracardiac shunting on bubble study Previewed by: Dr Francis Rodarte (Electronically Signed) Final Date: 24 December 2024 14:06
--- NOTE | 2024-12-24 14:19 | P.PN ---
Subjective Progress Note Date: 12/24/24 83-year-old female came in complaints of slurred speech that started today morning at 5:45 AM. Patient does not have any other focal weakness. Patient does have history of atrial fibrillation on Eliquis at home. Patient also has chronic heart failure history chronic diastolic function. Patient has pulm edema on exam patient does have elevated JVD as well. Patient denied any UTI symptoms urine is significant. Mildly abnormal because of which patient was started on antibiotics patient has asymptomatic bacteriuria. CT of the head was done which showed periventricular white matter ischemic changes and patient does have right-sided facial droop as well. CT angio of the head did not show any significant abnormality neurology was consulted physical therapy Occupational Therapy and speech therapy were consulted. 12/24/2024 Patient seen and examined at bedside. She continues to have right-sided facial droop with aphasia. MRI and echocardiogram completed. Neurology following patient. N.p.o. until speech evaluation completed. REVIEW OF SYSTEMS: All other systems are negative except those mentioned in the HPI PHYSICAL EXAMINATION: Vitals reviewed GENERAL: The patient is alert and oriented x3, not in any acute distress. Well developed, well nourished. CARDIOVASCULAR: S1 and S2 present. No murmurs, rubs, or gallops. PULMONARY: Expiratory wheezing on exam ABDOMEN: Soft, nontender, nondistended, normoactive bowel sounds. No palpable organomegaly. MUSCULOSKELETAL: No joint swelling or deformity. EXTREMITIES: No cyanosis, clubbing, or pedal edema. NEUROLOGICAL: Motor aphasia as mentioned above along with right-sided facial droop. SKIN: No rashes. Today's findings: WBC 11.1, lipid panel cholesterol 232, HDL 78, TSH 0.133, free T4 1.34, HbA1c 6.2 Echocardiogram interpreted as LV ejection fraction 55 to 60%, no [id number] intracardiac shunting on bubble study MRI brain interpreted as few foci of restricted diffusion on left frontal and parietal lobes consistent with acute/subacute ischemia. Advanced nonspecific white matter changes likely small vessel disease. Remote ischemic injury within the right frontal lobe Assessment and plan -Cerebrovascular accident probably embolic in nature involving the frontal and parietal lobes on the left side from her atrial fibrillation patient is on Eliquis which was resumed. MRI brain complete, hemoglobin A1c and lipid panel reviewed, PT and OT, consultation speech therapy consultation patient failed swallow bedside swallow evaluation. -Paroxysmal atrial fibrillation patient will be resumed on rate control medications - Congestive heart failure: Chronic diastolic function with acute exacerbation patient was given a dose of IV Lasix and patient started back on 20 mg IV twice daily of Lasix which will be continued - COPD with mild acute exacerbation patient will be started on inhaled steroids inhalational treatments patient quit smoking -Asymptomatic bacteriuria will not require any antibiotics -Hypertension - Gastroesophageal flux disease - Hypothyroidism For above-mentioned chronic medical problems patient will be resumed on appropriate home medications DVT prophylaxis: Resume Felicia Haro seen patient with resident, present during exam, and agreed with findings. Objective - Vital Signs Vital signs: Vital Signs Temp 98 F 12/24/24 08:04 Pulse 68 12/24/24 09:23 Resp 14 12/24/24 08:04 BP 180/72 12/24/24 08:04 Pulse Ox 98 12/24/24 09:10 FiO2 Intake & Output 12/23/24 12/24/24 12/24/24 18:59 06:59 18:59 Output Total 100 650 Balance -100 -650 Weight 69.581 kg 70 kg Output: Urine 100 650 Uretheral (Us) 100 Other: Voiding Method Indwelling Catheter - Labs CBC & Chem 7: 12/24/24 09:39 12/23/24 07:20 Labs: Abnormal Lab Results - Last 24 Hours (Table) 12/23/24 Range/Units 07:20 TSH 0.133 L (0.465-4.680) mIU/L
[2024-12-24] MEDS: traMADol 50 MG TAB PO SCH (15:30)
[2024-12-24] MEDS: APIXABAN 5 MG TAB PO SCH (15:30)
--- NOTE | 2024-12-24 16:06 | P.PN ---
Subjective Progress Note Date: 12/24/24 Patient was initially seen by Dr. Alvarez. Please refer to her note for details. Patient is a 84-year-old female with new onset slurred speech, right facial droop and right-sided weakness. CT/CTA negative. She has failed swallow study. Patient has been on Eliquis 5 mg twice daily prior to arrival to the hospital. Patient is laying comfortably in the bed. Patient states that she has difficulty with speaking, but denies any other focal symptoms. Patient states that whenever she gets migraine, she gets double vision. She is experiencing double vision at this time. This has been going on for "years". She also gets squiggly lines in the vision with migraines. Patient states her migraines can last for couple days up to couple months. Patient states she has smoked half pack per day for 40 years, quit at age 60. Objective - Vital Signs Vital signs: Vital Signs Temp 98.9 F 12/24/24 12:00 Pulse 63 12/24/24 15:25 Resp 16 12/24/24 15:25 BP 168/87 12/24/24 15:25 Pulse Ox 94 L 12/24/24 15:25 FiO2 Intake & Output 12/23/24 12/24/24 12/24/24 18:59 06:59 18:59 Output Total 100 650 750 Balance -100 -650 -750 Weight 69.581 kg 70 kg Output: Urine 100 650 750 Uretheral (Us) 100 Other: Voiding Method Indwelling Catheter Indwelling Catheter # Bowel Movements 0 - Exam Patient is an elderly female, laying in the bed, alert and awake. Patient is in no distress. She has moderate dysarthria. No aphasia. Patient can name and repeat. Patient knows it is December 2024 and that she is in [facility] in [facility]. On cranial examination pupils are equal, round and reacting to light, visual paez are full with no neglect. Patient has obvious right facial weakness. Extraocular muscles are intact. On muscle status and there is no pronator drift and the strength is normal in arms and legs distally and proximally. Sensory to touch is equal with no neglect. Patient has significant past-pointing with problems with depth perception with both upper limbs. No ataxia in the lower limbs. Patient admits to having some double vision. - Labs CBC & Chem 7: 12/25/24 05:56 12/25/24 05:56 Labs: Abnormal Lab Results - Last 24 Hours (Table) 12/23/24 12/23/24 12/24/24 Range/Units 07:20 07:20 09:39 WBC 11.19 H (4.50-10.00) 10*3/uL Monocytes # 1.32 H (0.20-1.00) 10*3/uL Eosinophils # 0.03 L (0.04-0.35) 10*3/uL Hemoglobin A1c 6.2 H (<=6.0) % Cholesterol 232.00 H (0.00-200.00) mg/dL HDL Cholesterol 78.10 H (40.00-60.00) mg/dL Microbiology - Last 24 Hours (Table) 12/23/24 07:41 Urine Culture - Preliminary Urine,Voided Gram Neg Bacilli Assessment and Plan Assessment: The patient is an 83-year-old female with slurred speech and right-sided weakness 1. Acute stroke, multifocal, involving left middle cerebral artery territory. Event appears embolic in nature. 2. History of atrial fibrillation on Eliquis 3. History of hyperlipidemia 4. History of hypertension 5. History of COPD 6. Pulmonary edema and congestive heart failure 7. Ex tobacco use Plan: 1. Patient is undergoing stroke workup. 2. MRI of the brain revealed few foci of restricted diffusion within the left frontal and parietal lobes consistent with acute/subacute ischemia. Advanced nonspecific white matter changes, likely related to small vessel ischemic disease. Remote ischemic injury within the right frontal lobe. I personally reviewed MRI, agree with the findings. 3. The patient has been taking aspirin 81 mg daily and Eliquis 5 mg twice daily prior to arrival, compliant with medication. Consider switching from aspirin to Plavix, as patient has failed above regimen. 4. Continue PT, OT, speech therapy. 5. 2D echo revealed LVEF 55 to 60%. No obvious regional wall motion abnor malities. Mild concentric LVH. Grade 2 diastolic dysfunction. Thickened and calcified mitral leaflets with mild MR. Moderate left atrial dilation. No evidence of [id number] shunt on bubble study. Moderate left atrial dilation. 6. Speech therapy consultation regarding swallow eval 7. CTA of head and neck revealed moderate narrowing of 56% of the right ICA. Mild narrowing of the left ICA about 47%. Possible normal variation with hypoplastic A1 segment and less well-visualized right HISTORIC INTERPRETER. 8. Hemoglobin A1c 6.2 9. Lipid panel with cholesterol 232, LDL 127, HDL 78, triglycerides 133. Patient was not on statins at home. Patient started on Lipitor 40 mg daily. Watch for hepatic panel.
[2024-12-24] MEDS: ACETAMINOPHEN IV (For NPO) 1,000 MG in EMPTY BAG 1 BAG IVPB SCH (17:33)
[2024-12-24] MEDS: ATORVASTATIN 40 MG TAB PO SCH (20:12)
[2024-12-25 06:51] LABS: Basophils # (A) 0.07 10*3/uL (0.00-0.10); Basophils % (A) 0.6 %; Eosinophils # (A) 0.21 10*3/uL (0.04-0.35); Eosinophils % (A) 1.8 %; HGB 13.3 g/dL (12.0-15.0); Lymphocytes # (A) 2.86 10*3/uL (0.90-5.00); Lymphocytes % (A) 23.8 %; MCH 29.2 pg (27.0-32.0); MCHC 32.4 g/dL (32.0-37.0); MCV 89.9 fL (80.0-97.0); Mean Platelet Volume 9.9 fL (9.5-12.2); Monocytes # (A) 1.44 10*3/uL (0.20-1.00); Neutrophils # (A) 7.39 10*3/uL (1.80-7.70); Neutrophils % (A) 61.5 %; Platelet Count 389 10*3/uL (140-440); RBC 4.56 10*6/uL (4.10-5.20); RDW 16.2 % (11.5-14.5)
[2024-12-25 07:09] LABS: African American GFR (CKD) 39 (>60 ml/min/1.73 sqM); Anion Gap 9 mmol/L; Blood Urea Nitrogen 26 mg/dL (7-17); Calcium 9.7 mg/dL (8.4-10.2); Carbon Dioxide 28 mmol/L (22-30); Chloride 103 mmol/L (98-107); Glucose 101 mg/dL (74-99); Non-African American GFR(CKD) 34 (>60 ml/min/1.73 sqM); Potassium 4.3 mmol/L (3.5-5.1); Sodium 140 mmol/L (137-145)
--- NOTE | 2024-12-25 15:08 | P.CONS ---
History of Present Illness - Reason for Consult Consult date: 12/25/24 rehab recommendations - Chief Complaint debility - History of Present Illness Ms Duncan is an 84 y/o right handed female who lives alone in an apartment with no LUCIA. 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 Patient's neighbor sets up medications and does grocery shopping for her as patient is legally blind. Her niece provides transporation. She plans to start with [facility] program in January. Patient presented to the ED after she reportedly awoke with speech difficulty. She was noticing slurring of her speech and difficulty walking. The evening prior to arrival, she had complaints of a headache, she has history of migraines and did feel that was consistent with her usual migraine. In the emergency department, CT scan of the brain was performed. There is no reported evidence of acute hemorrhage or infarct. CT angiogram of the head and neck was performed. There was no reported significant stenosis or large vessel occlusion. The taylor mercado was deemed to not be a candidate for TNK, because of her Eliquis. In the emergency department, the patient's blood pressure was elevated at 186/135. Neurology was consulted. MRI was ordered, MRI of the brain revealed few foci of restricted diffusion within the left frontal and parietal lobes consistent with acute/subacute ischemia. Advanced nonspecific white matter changes, likely related to small vessel ischemic disease. Remote ischemic injury within the right frontal lobe. 2D echo revealed LVEF 55 to 60%. No obvious regional wall motion abnormalities. Mild concentric LVH. Grade 2 diastolic dysfunction. Thickened and calcified mitral leaflets with mild MR. Moderate left atrial dilation. No evidence of [id number] shunt on bubble study. Moderate left atrial dilation. PM&R consulted for rehab recommendations. Patient was seen by therapies; needing Mod Assist with bathing and LB dressing, Min assist with toileting and bed mobility, Min assist with gait 60 ft with RW, she failed swallow study and was recommended for puree and NTL with no straws. 12/25/24: Patient states she is feeling much better than yesterday, her speech has significantly improved. She reports she still has right sided latter-day headache, denies numbness of the face but still has drooping. She denies any N/T/B sensations in the arms or legs, denies any lateralized weakness. She is legally blind. She denies CP,SOB, and abdominal pain, LBM was before admission. She has no complaints of pain outside of her headache. We discussed therapy options, she reports she only wants to go home, " what happens, happens". She is agreeable to home care. Review of Systems reviewed, as above in HPI Past Medical History Past Medical History: Atrial Fibrillation, Asthma, COPD, CVA/TIA, Eye Disorder, GERD/Reflux, Hypertension, Rheumatoid Arthritis (RA), Thyroid Disorder Additional Past Medical History / Comment(s): Other hx: Macular degeneration bilaterally-legally blind, rheumatoid arthritis in multple joints, osteoporosis, migraines, hypothyroid, urinary incontinence at times. History of Any Multi-Drug Resistant Organisms: ESBL Year Discovered:: 06/05/18 MDRO Source:: esbl urine Past Surgical History: Appendectomy, Cholecystectomy, Hysterectomy, Orthopedic Surgery, Tonsillectomy Additional Past Surgical History / Comment(s): D&C, colonoscopy, left knee sc ope, right arm ORIF. Past Anesthesia/Blood Transfusion Reactions: Motion Sickness Additional Past Anesthesia/Blood Transfusion Reaction / Comm: severe motion sickness Past Psychological History: No Psychological Hx Reported Additional Psychological History / Comment(s): She just got a walker. She is legally blind, no longer drives, her spouse drives and manages her medications. She has contact with a great manuelito that lives next door. She is retired, worked most recently at [employer]. No recent travel. No experience. Smoking Status: Former smoker Past Alcohol Use History: None Reported Past Drug Use History: None Reported - Past Family History Mother Additional Family Medical History / Comment(s): Pt states mother had severe migraines and at the age of 43yrs while hospitalized with severe migraine but does not know cause of . Father Family Medical History: Myocardial Infarction (NH) Additional Family Medical History / Comment(s): Father of a NH at the age of 54yrs. Family Additional Family Medical History / Comment(s): Patient denies any history of coronary artery disease Medications and Allergies Home Medications Medication Instructions Recorded Confirmed Type Apixaban [Eliquis] 5 mg PO BID tab 06/10/18 12/23/24 Rx Cholecalciferol [Vitamin D3 (25 25 mcg PO HS 03/14/22 12/23/24 History Mcg = 1000 Iu)] Levothyroxine Sodium [Synthroid] 25 mcg PO DAILY 03/14/22 12/23/24 History Melatonin 3 mg PO HS 11/24/22 12/23/24 History Cyanocobalamin (Vitamin B-12) 1,000 mcg PO DAILY 07/12/24 12/23/24 History [Vitamin B-12] Amiodarone [Cordarone] 200 mg PO BID 12/23/24 12/23/24 History Biotin [Biotin Disolve] 10,000 mcg PO DAILY 12/23/24 12/23/24 History Butalb/Acetaminophen/Caffeine 1 - 2 cap PO BID PRN MDD 4 CAPS 12/23/24 12/23/24 History [Fioricet 50-300-40 mg Capsule] Cholecalciferol (Vitamin D3) 50 mcg PO DAILY 12/23/24 12/23/24 History [Vitamin D3 (50 Mcg = 2000 Iu)] Ipratropium-Albuterol Nebulize 3 ml INHALATION RT-QID PRN 12/23/24 12/23/24 History [Duoneb 0.5 mg-3 mg/3 ml Soln] lisinopriL [Zestril] 10 mg PO DAILY 12/23/24 12/23/24 History traMADol HCL 50 mg PO DAILY 12/23/24 12/23/24 History Atorvastatin [Lipitor] 40 mg PO HS #90 tab 12/25/24 Rx Clopidogrel [Plavix] 75 mg PO DAILY #90 tablet 12/25/24 Rx Furosemide [Lasix] 40 mg PO DAILY #30 tablet 12/25/24 Rx Allergies Allergy/AdvReac Type Severity Reaction Status Date / Time adhesive tape Allergy Unknown Verified 12/23/24 08:49 ciprofloxacin [From Cipro] Allergy Unknown Verified 12/23/24 08:49 epinephrine Allergy Unknown Verified 12/23/24 08:49 latex Allergy Rash/Hives Verified 12/23/24 08:49 Penicillins Allergy Unknown Verified 12/23/24 08:49 povidone-iodine Allergy Unknown Verified 12/23/24 08:49 [From Betadine] soap [From Betadine] Allergy Unknown Verified 12/23/24 08:49 Sulfa (Sulfonamide Allergy Unknown Verified 12/23/24 08:49 Antibiotics) Tetanus Vaccines and Toxoid Allergy Unknown Verified 12/23/24 08:49 amitriptyline [From Elavil] AdvReac Confusion Verified 12/23/24 08:49 Physical Exam Vitals: Vital Signs Temp Pulse Pulse Resp BP Pulse Ox 12/25/24 09:07 75 12/25/24 08:53 77 95 12/25/24 07:40 97.7 F 65 18 182/84 92 L 12/25/24 04:00 98.2 F 85 14 170/91 92 L 12/24/24 23:26 97.0 F L 80 20 136/82 94 L 12/24/24 20:55 68 12/24/24 20:39 65 12/24/24 20:10 97.8 F 72 18 129/76 94 L 12/24/24 15:25 63 16 168/87 94 L 12/24/24 12:00 98.9 F 73 16 191/83 96 Intake and Output 12/24/24 12/25/24 12/25/24 22:59 06:59 14:59 Output Total 750 300 475 Balance -750 -300 -475 Output: Urine 750 300 475 Other: Voiding Method Indwelling Catheter Indwelling Catheter Indwelling Catheter Weight 70 kg General: WDWN elderly female, laying in bed with HOB elevated, alert, NAD HEENT: head normocephalic, atraumatic; moist mucous membranes, external ears intact with hearing intact to conversational speech, vision is impaired, able to make out shadows/outlines CV: no acute cardiac distress Lungs: Even, nonlabored respirations, occasional cough Abdomen: soft, NT, ND MSK: full ROM bilateral UE and LEs Neuro: Alert, oriented x 4, speech is dysarthric, right facial droop. Expressive aphasia MMT: B/L SABD 5-/5, EF/EE/HG/FABD 5-/5; B/L HF 4+/5, KE 5/5, DF 5/5 MSR: 3/4 bilateral biceps, triceps, brachioradialis, 2/4 patella Sensation intact to light touch bilateral UE and LEs Coordination: HTS WFL bilaterally Psych: mood calm, affect appropriate Extremities: calves supple, non tender, no LE edema Skin: intact where exposed except for left PIV Results CBC & Chem 7: 12/25/24 05:56 12/25/24 05:56 Labs: Abnormal Lab Results - Last 24 Hours (Table) 12/24/24 12/25/24 12/25/24 Range/Units 09:39 05:56 05:56 WBC 11.19 H 12.00 H (4.50-10.00) 10*3/uL Monocytes # 1.32 H 1.44 H (0.20-1.00) 10*3/uL Eosinophils # 0.03 L (0.04-0.35) 10*3/uL BUN 26 H (7-17) mg/dL Creatinine 1.45 H (0.52-1.04) mg/dL Glucose 101 H (74-99) mg/dL Microbiology - Last 24 Hours (Table) 12/23/24 07:41 Urine Culture - Final Urine,Voided Escherichia coli Assessment and Plan Assessment: # Ataxia secondary to Acute stroke, multifocal, involving left middle cerebral artery territory. -Event appears embolic in nature. -Neuro following #Dysarthria secondary to above #Expressive aphasia #Dysphagia secondary to above -puree and NTL, no straws, aspiration precautions # History of atrial fibrillation on Eliquis #Comorbidities: History of hyperlipidemia, History of hypertension, History of COPD, Pulmonary edema and congestive heart failure, Ex tobacco use #your medical Dx and management Dispo: Patient is noted to be below baseline function, would benefit from a structured Inpatient rehabilitation stay but she declines at this time. She would like to return home with home care and assist from her neighbor and niece. Patient's insurance is out of network with [facility] and she would have 50% copay for services, would refer to [facility] if patient changes her mind. [facility] Case Management. Patient seen and examined in collaboration with Dr Dubois Thank you for consulting our services.
[2024-12-25] MEDS: ACETAMINOPHEN TAB 325 MG TAB PO PRN (15:51)
--- NOTE | 2024-12-25 15:52 | P.DS ---
Providers Date of admission: 12/23/24 08:43 Expected date of discharge: 12/25/24 Attending physician: Fernie Wadsworth Consults: 12/23/24 08:42 Consult Physician Routine Consulting Provider: Sarah Erwin Consult Reason/Comments: CVA Do you want consulting provider notified?: Yes 12/25/24 07:34 Consult Physician Routine Consulting Provider: Wyatt Butler Consult Reason/Comments: eval for IPR Do you want consulting provider notified?: Yes Primary care physician: Stated None Hospital Course: Discharge diagnoses; Acute stroke, multifocal, involving left middle cerebral artery territory. Event appears embolic in nature. Asymptomatic bacteriuria History of atrial fibrillation on Eliquis History of hyperlipidemia History of hypertension History of COPD Pulmonary edema and congestive heart failure Ex tobacco use GERD Hypothyroidism Hospital course; 83-year-old female came in complaints of slurred speech that started today morning at 5:45 AM. Patient does not have any other focal weakness. Patient does have history of atrial fibrillation on Eliquis at home. Patient also has chronic heart failure history chronic diastolic function. Patient has pulm edema on exam patient does have elevated JVD as well. Patient denied any UTI symptoms urine is significant. Mildly abnormal because of which patient was started on antibiotics patient has asymptomatic bacteriuria. CT of the head was done which showed periventricular white matter ischemic changes and patient does have right-sided facial droop as well. CT angio of the head did not show any significant abnormality neurology was consulted physical therapy Occupational Therapy and speech therapy were consulted. WBC 11.1, lipid panel cholesterol 232, HDL 78, TSH 0.133, free T4 1.34, HbA1c 6.2 Echocardiogram interpreted as LV ejection fraction 55 to 60%, no [id number] intracardiac shunting on bubble study MRI brain interpreted as few foci of restricted diffusion on left frontal and parietal lobes consistent with acute/subacute ischemia. Advanced nonspecific white matter changes likely small vessel disease. Remote ischemic injury within the right frontal lobe. During hospital stay patient treated for involving left middle cerebral artery territory, appearing embolic in nature. Patient is discharged in stable condition to home with home health care. She is to begin Plavix and Eliquis daily. Begin Lipitor 40 mg daily. She is to follow-up with her PCP and neurology. Will need to continue rehab. Complete BMP and CBC 3 days after discharge. PHYSICAL EXAMINATION: Vitals reviewed GENERAL: The patient is alert and oriented x3, not in any acute distress. Well developed, well nourished. CARDIOVASCULAR: S1 and S2 present. No murmurs, rubs, or gallops. PULMONARY: Bilateral breath sounds no crackles or wheezing ABDOMEN: Soft, nontender, nondistended, normoactive bowel sounds. No palpable organomegaly. MUSCULOSKELETAL: No joint swelling or deformity. EXTREMITIES: No cyanosis, clubbing, or pedal edema. NEUROLOGICAL: Motor aphasia as mentioned above along with right-sided facial droop. Dr. Haro seen patient with resident, present during exam, and agreed with findings. Dictation was produced using [employer] dictation software. please excuse any grammatical, word or spelling errors. Patient Condition at Discharge: Stable Plan - Discharge Summary Discharge Rx Participant: No New Discharge Prescriptions: New Furosemide [Lasix] 40 mg PO DAILY #30 tablet Atorvastatin [Lipitor] 40 mg PO HS #90 tab Clopidogrel [Plavix] 75 mg PO DAILY #90 tablet Continue Apixaban [Eliquis] 5 mg PO BID tab Cyanocobalamin (Vitamin B-12) [Vitamin B-12] 1,000 mcg PO DAILY Cholecalciferol (Vitamin D3) [Vitamin D3 (50 Mcg = 2000 Iu)] 50 mcg PO DAILY lisinopriL [Zestril] 10 mg PO DAILY Butalb/Acetaminophen/Caffeine [Fioricet 50-300-40 mg Capsule] 1 - 2 cap PO BID PRN MDD 4 CAPS PRN Reason: Migraine Headache Levothyroxine Sodium [Synthroid] 25 mcg PO DAILY Cholecalciferol [Vitamin D3 (25 Mcg = 1000 Iu)] 25 mcg PO HS Melatonin 3 mg PO HS Ipratropium-Albuterol Nebulize [Duoneb 0.5 mg-3 mg/3 ml Soln] 3 ml INHALATION RT-QID PRN PRN Reason: Shortness Of Breath traMADol HCL 50 mg PO DAILY Amiodarone [Cordarone] 200 mg PO BID Biotin [Biotin Disolve] 10,000 mcg PO DAILY Discharge Medication List Apixaban [Eliquis] 5 mg PO BID tab 06/10/18 [Rx] Cholecalciferol [Vitamin D3 (25 Mcg = 1000 Iu)] 25 mcg PO HS 03/14/22 [History] Levothyroxine Sodium [Synthroid] 25 mcg PO DAILY 03/14/22 [History] Melatonin 3 mg PO HS 11/24/22 [History] Cyanocobalamin (Vitamin B-12) [Vitamin B-12] 1,000 mcg PO DAILY 07/12/24 [History] Amiodarone [Cordarone] 200 mg PO BID 12/23/24 [History] Biotin [Biotin Disolve] 10,000 mcg PO DAILY 12/23/24 [History] Butalb/Acetaminophen/Caffeine [Fioricet 50-300-40 mg Capsule] 1 - 2 cap PO BID PRN MDD 4 CAPS 12/23/24 [History] Cholecalciferol (Vitamin D3) [Vitamin D3 (50 Mcg = 2000 Iu)] 50 mcg PO DAILY 12/23/24 [History] Ipratropium-Albuterol Nebulize [Duoneb 0.5 mg-3 mg/3 ml Soln] 3 ml INHALATION RT-QID PRN 12/23/24 [History] lisinopriL [Zestril] 10 mg PO DAILY 12/23/24 [History] traMADol HCL 50 mg PO DAILY 12/23/24 [History] Atorvastatin [Lipitor] 40 mg PO HS #90 tab 12/25/24 [Rx] Clopidogrel [Plavix] 75 mg PO DAILY #90 tablet 12/25/24 [Rx] Furosemide [Lasix] 40 mg PO DAILY #30 tablet 12/25/24 [Rx] Follow up Appointment(s)/Referral(s): Rachell Watt MD [REFERRING] - 01/01/25 2:20 pm Ayush Boswell DO [STAFF PHYSICIAN] - 1 Week Ambulatory/Diagnostic Orders: Basic Metabolic Panel [LAB.AMB] Location: None Selected Complete Blood Count w/diff [LAB.AMB] Location: None Selected Patient Instructions/Handouts: Pulmonary Embolism (DC), Urinary Tract Infection in Women (DC), Altered Mental Status (ED), Stroke (DC) Activity/Diet/Wound Care/Special Instructions: [facility] . Begin Plavix daily, Lipitor 40 mg daily, and Lasix 40 mg daily. Follow-up with labs ordered at PCPs office. Schedule outpatient follow-up for neurology. Will need to continue with PT and OT as outpatient. Discharge/Stand Alone Forms: Who Do I Call?, Community Resources, Personal Process Mold Technician Discharge Disposition: HOME WITH HOME HEALTH SERVICES
[2024-12-25] MEDS: BUTALB/APAP/CAFF 50-325-40MG TAB PO PRN (18:08)
[2024-12-26] MEDS: ASPIRIN 325 MG TAB PO SCH (08:24)
--- NOTE | 2024-12-26 08:43 | P.PN ---
Subjective Progress Note Date: 12/25/24 12/25/2024: Patient was seen for a follow-up. Patient is doing better, her speech is better, face appears better, with less asymmetry. Patient continues to complain of significant migraine headache. 12/24/2024: Patient was initially seen by Dr. Alvarez. Please refer to her note for details. Patient is a 84-year-old female with new onset slurred speech, right facial droop and right-sided weakness. CT/CTA negative. She has failed swallow study. Patient has been on Eliquis 5 mg twice daily prior to arrival to the hospital. Patient is laying comfortably in the bed. Patient states that she has difficulty with speaking, but denies any other focal symptoms. Patient states that whenever she gets migraine, she gets double vision. She is experiencing double vision at this time. This has been going on for "years". She also gets squiggly lines in the vision with migraines. Patient states her migraines can last for couple days up to couple months. Patient states she has smoked half pack per day for 40 years, quit at age 60. Objective - Vital Signs Vital signs: Vital Signs Temp 98.3 F 12/25/24 15:40 Pulse 81 12/25/24 15:40 Resp 18 12/25/24 15:40 BP 163/82 12/25/24 15:40 Pulse Ox 92 L 12/25/24 15:40 FiO2 Intake & Output 12/24/24 12/25/24 12/25/24 18:59 06:59 18:59 Output Total 750 300 475 Balance -750 -300 -475 Weight 70 kg Output: Urine 750 300 475 Other: Voiding Method Indwelling Catheter Indwelling Catheter Diaper External Catheter # Bowel Movements 0 - Exam Patient is an elderly female, laying in the bed, alert and awake. Patient is in no distress. Her dysarthria has improved. No aphasia. Patient can name and repeat. Patient knows it is December 2024 and that she is in [facility] in [facility]. On cranial examination pupils are equal, round and reacting to light, visual paez are full with no neglect. Patient's right facial weakness is improved. Much less droop. Extraocular muscles are intact. On muscle status and there is no pronator drift and the strength is normal in arms and legs distally and proximally. Sensory to touch is equal with no neglect. Patient has significant past-pointing with problems with depth perception with both upper limbs. No ataxia in the lower limbs. Patient admits to having some double vision. - Labs CBC & Chem 7: 12/25/24 05:56 12/25/24 05:56 Labs: Abnormal Lab Results - Last 24 Hours (Table) 12/25/24 12/25/24 Range/Units 05:56 05:56 WBC 12.00 H (4.50-10.00) 10*3/uL Monocytes # 1.44 H (0.20-1.00) 10*3/uL BUN 26 H (7-17) mg/dL Creatinine 1.45 H (0.52-1.04) mg/dL Glucose 101 H (74-99) mg/dL Microbiology - Last 24 Hours (Table) 12/23/24 07:41 Urine Culture - Final Urine,Voided Escherichia coli Assessment and Plan Assessment: The patient is an 83-year-old female with slurred speech and right-sided weakness 1. Acute stroke, multifocal, involving left middle cerebral artery territory. Event appears embolic in nature. 2. History of atrial fibrillation on Eliquis 3. History of hyperlipidemia 4. History of hypertension 5. History of COPD 6. Pulmonary edema and congestive heart failure 7. Ex tobacco use 8. History of migraine headaches. Plan: 1. Patient is undergoing stroke workup. 2. MRI of the brain revealed few foci of restricted diffusion within the left frontal and parietal lobes consistent with acute/subacute ischemia. Advanced nonspecific white matter changes, likely related to small vessel ischemic diseas e. Remote ischemic injury within the right frontal lobe. I personally reviewed MRI, agree with the findings. 3. The patient has been taking aspirin 81 mg daily and Eliquis 5 mg twice daily prior to arrival, compliant with medication. Consider switching from aspirin to Plavix, as patient has failed above regimen. 4. Continue PT, OT, speech therapy. 5. 2D echo revealed LVEF 55 to 60%. No obvious regional wall motion abnormalities. Mild concentric LVH. Grade 2 diastolic dysfunction. Thickened and calcified mitral leaflets with mild MR. Moderate left atrial dilation. No evidence of anskj-ic-[id number] shunt on bubble study. Moderate left atrial dilation. 6. Speech therapy consultation regarding swallow eval 7. CTA of head and neck revealed moderate narrowing of 56% of the right ICA. Mild narrowing of the left ICA about 47%. Possible normal variation with hypoplastic A1 segment and less well-visualized right [employer]IST. 8. Hemoglobin A1c 6.2 9. Lipid panel with cholesterol 232, LDL 127, HDL 78, triglycerides 133. Patient was not on statins at home. Patient started on Lipitor 40 mg daily. Watch for hepatic panel. 10. Patient declined to go to subacute rehab. She was to go home with home care. Discussed with physical medicine and rehab team. 11. We will give Fioricet for migraine.
[2024-12-26] MEDS ORDERED: ONDANSETRON 4 MG/2 ML VIAL IVP PRN (08:48)
--- NOTE | 2024-12-26 14:17 | CT ---
EXAMINATION TYPE: CT brain wo con DATE OF EXAM: 12/26/2024 COMPARISON: 12/23/2024 CLINICAL INDICATION: Female, 84 years old with history of symptoms worsening; PHH, Symptoms worsening CT DLP: 1127.4 mGycm Automated exposure control for dose reduction was used. Findings: The ventricles, basal cisterns and sulci over convexities are moderately to markedly enlarged consist ent with moderate to marked generalized atrophy. There is marked diffuse decreased density in the periventricular white matter consistent with chronic ischemic white matter demyelination. There is a stable, remote right frontal cortical infarct. There is no mass effect or shift of midline structures. There is no acute intra or extra-axial hemorrhage. The posterior fossa including the brainstem, fourth ventricle and cerebellar pontine angles appear no rmal. Intraorbital contents appear normal and symmetric. Visualized paranasal sinuses and mastoid air cells are well aerated. The calvarium is intact. IMPRESSION: 1. No acute bleed or mass effect. 2. Stable right frontal cortical infarct. 3. Moderate to marked generalized atrophy and chronic ischemic white matter demyelination. 4. No interval change. [facility], , 12/26/2024 2:15 PM
[2024-12-26] MEDS: CLOPIDOGREL 75 MG TAB PO SCH (16:02)
[2024-12-26] MEDS: FAMOTIDINE 20 MG TAB PO SCH (21:04)
[2024-12-26] MEDS: FUROSEMIDE 10 MG/ML 2 ML VIAL IV SCH (21:04)
[2024-12-27 06:52] LABS: Basophils # (A) 0.05 10*3/uL (0.00-0.10); Basophils % (A) 0.4 %; Eosinophils # (A) 0.34 10*3/uL (0.04-0.35); Eosinophils % (A) 2.7 %; HCT 44.9 % (37.2-46.3); HGB 14.4 g/dL (12.0-15.0); Lymphocytes # (A) 3.21 10*3/uL (0.90-5.00); Lymphocytes % (A) 25.6 %; MCH 28.5 pg (27.0-32.0); MCHC 32.1 g/dL (32.0-37.0); MCV 88.9 fL (80.0-97.0); Monocytes # (A) 1.23 10*3/uL (0.20-1.00); Monocytes % (A) 9.8 %; Neutrophils # (A) 7.65 10*3/uL (1.80-7.70); Platelet Count 422 10*3/uL (140-440); RBC 5.05 10*6/uL (4.10-5.20); RDW 15.9 % (11.5-14.5); WBC 12.54 10*3/uL (4.50-10.00)
[2024-12-27 07:12] LABS: African American GFR (CKD) 34 (>60 ml/min/1.73 sqM); Anion Gap 11 mmol/L; Blood Urea Nitrogen 37 mg/dL (7-17); Calcium 9.8 mg/dL (8.4-10.2); Carbon Dioxide 24 mmol/L (22-30); Chloride 102 mmol/L (98-107); Glucose 104 mg/dL (74-99); Non-African American GFR(CKD) 29 (>60 ml/min/1.73 sqM); Sodium 137 mmol/L (137-145)
--- NOTE | 2024-12-27 08:29 | P.PN ---
Subjective Progress Note Date: 12/26/24 12/26/2024: Patient was seen for a follow-up. Patient apparently has got worse today. Patient's speech is more slurred, more right facial droop, and right arm feels more numb. Neurology was reconsulted. Patient was otherwise ready for discharge. 12/25/2024: Patient was seen for a follow-up. Patient is doing better, her speech is better, face appears better, with less asymmetry. Patient continues to complain of significant migraine headache. 12/24/2024: Patient was initially seen by Dr. Alvarez. Please refer to her note for details. Patient is a 84-year-old female with new onset slurred speech, right facial droop and right-sided weakness. CT/CTA negative. She has failed swallow study. Patient has been on Eliquis 5 mg twice daily prior to arrival to the hospital. Patient is laying comfortably in the bed. Patient states that she has difficulty with speaking, but denies any other focal symptoms. Patient states that whenever she gets migraine, she gets double vision. She is experiencing double vision at this time. This has been going on for "years". She also gets squiggly lines in the vision with migraines. Patient states her migraines can last for couple days up to couple months. Patient states she has smoked half pack per day for 40 years, quit at age 60. Objective - Vital Signs Vital signs: Vital Signs Temp 98 F 12/26/24 12:00 Pulse 109 H 12/26/24 12:00 Resp 16 12/26/24 12:00 BP 144/68 12/26/24 12:00 Pulse Ox 95 12/26/24 12:00 FiO2 Intake & Output 12/25/24 12/26/24 12/26/24 18:59 06:59 18:59 Intake Total 10 Output Total 475 600 Balance -475 -600 10 Weight 65.5 kg Intake: IV 10 Invasive Line 1 10 Output: Urine 475 600 Other: Voiding Method Diaper Diaper Diaper External Catheter External Catheter External Catheter # Voids 0 # Bowel Movements 0 - Exam Patient is an elderly female, laying in the bed, alert and awake. Patient is in no distress. Her dysarthria has got worse again today. No aphasia. Patient can name and repeat. Patient knows it is December 2024 and that she is in [facility] in [facility]. On cranial examination pupils are equal, round and reacting to light, visual paez are full with no neglect. Patient's right facial droop has got worse today. Extraocular muscles are intact. Her tongue slightly protrudes to the right. On muscle status and there is no pronator drift and the strength is normal in arms and legs distally and proximally. Sensory to touch is equal with no neglect. Patient has significant past-pointing with problems with depth perception with both upper limbs. No ataxia in the lower limbs. - Labs CBC & Chem 7: 12/27/24 06:01 12/27/24 06:01 Assessment and Plan Assessment: The patient is an 83-year-old female with slurred speech and right-sided weakness 1. Acute stroke, multifocal, involving left middle cerebral artery territory. Event appears embolic in nature. 2. History of atrial fibrillation on Eliquis 3. History of hyperlipidemia 4. History of hypertension 5. History of COPD 6. Pulmonary edema and congestive heart failure 7. Ex tobacco use 8. History of migraine headaches. Plan: 1. Patient is undergoing stroke workup. 2. MRI of the brain revealed few foci of restricted diffusion within the left frontal and parietal lobes consistent with acute/subacute ischemia. Advanced nonspecific white matter changes, likely related to small vessel ischemic di sease. Remote ischemic injury within the right frontal lobe. I personally reviewed MRI, agree with the findings. 3. We will switch from aspirin to Plavix 75 mg. Continue Eliquis 5 mg twice daily. (Prior to arrival, patient was on aspirin 81 mg and Eliquis). 4. Continue PT, OT, speech therapy. 5. 2D echo revealed LVEF 55 to 60%. No obvious regional wall motion abnormalities. Mild concentric LVH. Grade 2 diastolic dysfunction. Thickened and calcified mitral leaflets with mild MR. Moderate left atrial dilation. No evidence of [id number] shunt on bubble study. Moderate left atrial dilation. 6. Speech therapy consultation regarding swallow eval 7. CTA of head and neck revealed moderate narrowing of 56% of the right ICA. Mild narrowing of the left ICA about 47%. 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 The right ICA stenosis is not symptomatic, as symptoms are on the ipsilateral side. 8. Hemoglobin A1c 6.2 9. Lipid panel with cholesterol 232, LDL 127, HDL 78, triglycerides 133. Patient was not on statins at home. Patient started on Lipitor 40 mg daily. Watch for hepatic panel. 10. Patient declined to go to subacute rehab. She was to go home with home care. Discussed with physical medicine and rehab team. 11. We will give Fioricet for migraine. 12. Patient will stay overnight for observation. Discussed with multiple grandniece who were present by the bedside.
[2024-12-27] MEDS: LORazepam 1 MG TAB PO STA (14:41)
--- NOTE | 2024-12-27 15:51 | P.PN ---
Subjective Progress Note Date: 12/27/24 83-year-old female came in complaints of slurred speech that started today morning at 5:45 AM. Patient does not have any other focal weakness. Patient does have history of atrial fibrillation on Eliquis at home. Patient also has chronic heart failure history chronic diastolic function. Patient has pulm edema on exam patient does have elevated JVD as well. Patient denied any UTI symptoms urine is significant. Mildly abnormal because of which patient was started on antibiotics patient has asymptomatic bacteriuria. CT of the head was done which showed periventricular white matter ischemic changes and patient does have right-sided facial droop as well. CT angio of the head did not show any significant abnormality neurology was consulted physical therapy Occupational Therapy and speech therapy were consulted. 12/24/2024 Patient seen and examined at bedside. She continues to have right-sided facial droop with aphasia. MRI and echocardiogram completed. Neurology following patient. N.p.o. until speech evaluation completed. 12/27/2024 Patient seen and examined at bedside. During exam patient does continue to have aphasia with right-sided facial droop. She was evaluated by PT with progressive weakness, and drooling noted. CT brain with no new changes. She will likely need rehab. Patient is being seen by neurology. Maintained on Eliquis, Plavix. REVIEW OF SYSTEMS: All other systems are negative except those mentioned in the HPI PHYSICAL EXAMINATION: Vitals reviewed GENERAL: The patient is alert and oriented x3, not in any acute distress. Well developed, well nourished. CARDIOVASCULAR: S1 and S2 present. No murmurs, rubs, or gallops. PULMONARY: Expiratory wheezing on exam ABDOMEN: Soft, nontender, nondistended, normoactive bowel sounds. No palpable organomegaly. MUSCULOSKELETAL: No joint swelling or deformity. EXTREMITIES: No cyanosis, clubbing, or pedal edema. NEUROLOGICAL: Motor aphasia as mentioned above along with right-sided facial droop. SKIN: No rashes. Today's findings: Labs today hemoglobin 11.9, sodium 136, potassium 3.3. CT brain with no new changes. Assessment and plan -Cerebrovascular accident probably embolic in nature involving the frontal and parietal lobes on the left side from her atrial fibrillation patient is on Eliquis which was resumed. MRI brain complete, hemoglobin A1c and lipid panel reviewed, PT and OT. Continue dysphagia diet. -Paroxysmal atrial fibrillation patient will be resumed on rate control medications - Congestive heart failure: Chronic diastolic function with acute exacerbation patient was given a dose of IV Lasix and patient started back on 20 mg IV twice daily of Lasix which will be continued - COPD with mild acute exacerbation patient will be started on inhaled steroids inhalational treatments patient quit smoking -Asymptomatic bacteriuria will not require any antibiotics -Hypertension - Gastroesophageal flux disease - Hypothyroidism Hypokalemiagiven potassium chloride For above-mentioned chronic medical problems patient will be resumed on appropriate home medications DVT prophylaxis: Rl Haro seen patient with resident, present during exam, and agreed with findings. Objective - Vital Signs Vital signs: Vital Signs Temp 98 F 12/27/24 11:50 Pulse 94 12/27/24 11:50 Resp 16 12/27/24 11:50 BP 183/88 12/27/24 11:50 Pulse Ox 95 12/27/24 11:50 FiO2 Intake & Output 12/26/24 12/27/24 12/27/24 18:59 06:59 18:59 Intake Total 10 240 130 Balance 10 240 130 Weight 63.5 kg Intake: IV 10 10 Invasive Line 1 10 10 Oral 240 120 Other: Voiding Method Diaper Diaper Diaper External Catheter External Catheter External Catheter - Labs CBC & Chem 7: 12/27/24 06:01 12/27/24 06:01 Labs: Abnormal Lab Results - Last 24 Hours (Table) 12/27/24 12/27/24 Range/Units 06:01 06:01 WBC 12.54 H (4.50-10.00) 10*3/uL Immature Gran # 0.06 H (0.00-0.04) 10*3/uL Monocytes # 1.23 H (0.20-1.00) 10*3/uL BUN 37 H (7-17) mg/dL Creatinine 1.63 H (0.52-1.04) mg/dL Glucose 104 H (74-99) mg/dL
--- NOTE | 2024-12-27 16:00 | MR ---
INDICATION: Patient age:Female; 84 years old; Reason for study: Recurrent strokes; PHH. COMPARISON: MRI brain 12/24/2024, 03/16/2022, CT brain 12/26/2024, 12/23/2024, 03/14/2022, CTA head and neck 12/23/2024. TECHNIQUE: Multi planar, multi sequence imaging was performed through the brain without the administr ation of intravenous contrast. FINDINGS: Encephalomalacia with gliosis identified within the right frontal lobe again. Redemonstration of mult iple foci of restricted diffusion within the left frontoparietal lobes. There are several new additio nal regions of restricted diffusion within the left frontoparietal lobes with additional focus within the right frontal lobe. These are predominantly at the soto-white junction interface. Mild prominenc e of the ventricular system and peripheral sulci consistent with age-appropriate diffuse cerebral vol ume loss. Poor visualization of the V4 segment arterial flow void of the right vertebral artery. The remaining intracranial arterial flow voids are maintained. Midline structures show no abnormality. Similar conf luent areas of high T2/FLAIR signal intensity are seen within the supratentorial periventricular and subcortical white matter. The bone marrow signal is within normal limits. Similar left frontal scalp T2/FLAIR hyperintense 1.2 cm focus possibly representing a benign soft tissue sebaceous cyst. The paranasal sinuses are unrema rkable. Bilateral aphakia. IMPRESSION: 1. Redemonstration of foci of restricted diffusion within the left frontoparietal lobes with several new foci within these regions. Additional new focus within the right frontal lobe. Findings are consi stent with acute/subacute ischemia. Raises concern for embolic phenomenon due to distribution. 2. Similar advanced nonspecific white matter changes, likely related to small vessel ischemic disease . 3. Remote ischemic injury within the right frontal lobe. [facility], , 12/27/2024 3:57 PM
[2024-12-27] MEDS: APIXABAN 2.5 MG TABLET PO SCH (20:23)
[2024-12-28 06:34] LABS: MCHC 32.6 g/dL (32.0-37.0); Mean Platelet Volume 10.4 fL (9.5-12.2); Platelet Count 380 10*3/uL (140-440); RBC 4.83 10*6/uL (4.10-5.20); RDW 15.9 % (11.5-14.5); WBC 11.46 10*3/uL (4.50-10.00)
[2024-12-28 06:51] LABS: African American GFR (CKD) 27 (>60 ml/min/1.73 sqM); Anion Gap 10 mmol/L; Blood Urea Nitrogen 46 mg/dL (7-17); Calcium 9.4 mg/dL (8.4-10.2); Carbon Dioxide 27 mmol/L (22-30); Chloride 100 mmol/L (98-107); Glucose 112 mg/dL (74-99); Non-African American GFR(CKD) 24 (>60 ml/min/1.73 sqM); Sodium 137 mmol/L (137-145)
[2024-12-28] MEDS: FAMOTIDINE 20 MG TAB PO SCH (08:32)
[2024-12-28] MEDS: SODIUM CHLORIDE 0.9% 1,000 ML IV SCH (09:00)
--- NOTE | 2024-12-28 09:39 | P.PN ---
Subjective Progress Note Date: 12/27/24 12/27/2024: Patient was seen for follow-up. Patient states that she still is getting worse. Any time she starts doing physical therapy, her symptoms get worse. I don't think she is any worse than yesterday. 12/26/2024: Patient was seen for a follow-up. Patient apparently has got worse today. Patient's speech is more slurred, more right facial droop, and right arm feels more numb. Neurology was reconsulted. Patient was otherwise ready for discharge. 12/25/2024: Patient was seen for a follow-up. Patient is doing better, her speech is better, face appears better, with less asymmetry. Patient continues to complain of significant migraine headache. 12/24/2024: Patient was initially seen by Dr. Alvarez. Please refer to her note for details. Patient is a 84-year-old female with new onset slurred speech, right facial droop and right-sided weakness. CT/CTA negative. She has failed swallow study. Patient has been on Eliquis 5 mg twice daily prior to arrival to the hospital. Patient is laying comfortably in the bed. Patient states that she has difficulty with speaking, but denies any other focal symptoms. Patient states that whenever she gets migraine, she gets double vision. She is experiencing double vision at this time. This has been going on for "years". She also gets squiggly lines in the vision with migraines. Patient states her migraines can last for couple days up to couple months. Patient states she has smoked half pack per day for 40 years, quit at age 60. Objective - Vital Signs Vital signs: Vital Signs Temp 98 F 12/28/24 08:27 Pulse 77 12/28/24 08:27 Resp 14 12/28/24 08:27 BP 125/69 12/28/24 08:27 Pulse Ox 96 12/28/24 08:27 FiO2 Intake & Output 12/27/24 12/28/24 12/28/24 18:59 06:59 18:59 Intake Total 190 50 118 Output Total 300 450 250 Balance -110 -400 -132 Weight 64 kg Intake: IV 10 Invasive Line 1 10 Oral 180 50 118 Output: Urine 300 450 250 Other: Voiding Method Diaper Diaper External Catheter # Voids 1 # Bowel Movements 1 - Exam Patient is an elderly female, laying in the bed, alert and awake. Patient is in no distress. Patient has moderate dysarthria. No aphasia. Patient can name and repeat. Patient knows it is December 2024 and that she is in [facility] in [facility]. On cranial examination pupils are equal, round and reacting to light, visual paez are full with no neglect. Patient's right facial droop has got worse today. Extraocular muscles are intact. Her tongue slightly protrudes to the right. On muscle status and there is right pronation, no drift. The strength is normal in arms and legs distally and proximally. Sensory to touch is equal with no neglect. Patient has significant past-pointing with problems with depth perception with both upper limbs. No ataxia in the lower limbs. - Labs CBC & Chem 7: 12/28/24 06:00 12/28/24 06:00 Labs: Abnormal Lab Results - Last 24 Hours (Table) 12/28/24 12/28/24 Range/Units 06:00 06:00 WBC 11.46 H (4.50-10.00) 10*3/uL BUN 46 H (7-17) mg/dL Creatinine 1.95 H (0.52-1.04) mg/dL Glucose 112 H (74-99) mg/dL Assessment and Plan Assessment: The patient is an 83-year-old female with slurred speech and right-sided weakness 1. Acute stroke, multifocal, involving left middle cerebral artery territory. Event appears embolic in nature. 2. History of atrial fibrillation on Eliquis 3. History of hyperlipidemia 4. History of hypertension 5. History of COPD 6. Pulmonary edema and congestive heart failure 7. Ex tobacco use 8. History of migraine headaches. Plan: 1. Patient seems to have got worse. We will repeat MRI of the brain. 2. MRI of the brain revealed few foci of restricted diffusion within the left frontal and parietal lobes consistent with acute/subacute ischemia. Advanced nonspecific white matter changes, likely related to small vessel ischemic disease. Remote ischemic injury within the right frontal lobe. I personally reviewed MRI, agree with the findings. 3. We will switch from aspirin to Plavix 75 mg. Continue Eliquis 5 mg twice daily. (Prior to arrival, patient was on aspirin 81 mg and Eliquis). 4. Continue PT, OT, speech therapy. 5. 2D echo revealed LVEF 55 to 60%. No obvious regional wall motion abnormalities. Mild concentric LVH. Grade 2 diastolic dysfunction. Thickened and calcified mitral leaflets with mild MR. Moderate left atrial dilation. No evidence of [id number] shunt on bubble study. Moderate left atrial dilation. 6. Speech therapy consultation regarding swallow eval 7. CTA of head and neck revealed moderate narrowing of 56% of the right ICA. Mild narrowing of the left ICA about 47%. 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 The right ICA stenosis is not symptomatic, as symptoms are on the ipsilateral side. 8. Hemoglobin A1c 6.2 9. Lipid panel with cholesterol 232, LDL 127, HDL 78, triglycerides 133. Patient was not on statins at home. Patient started on Lipitor 40 mg daily. Watch for hepatic panel. 10. Patient declined to go to subacute rehab. She was to go home with home care. Discussed with physical medicine and rehab team. 11. We will give Fioricet for migraine. 12. Patient will stay overnight for observation. Discussed with multiple grandniece who were present by the bedside.
--- NOTE | 2024-12-28 15:50 | P.PN ---
Subjective Progress Note Date: 12/28/24 83-year-old female came in complaints of slurred speech that started today morning at 5:45 AM. Patient does not have any other focal weakness. Patient does have history of atrial fibrillation on Eliquis at home. Patient also has chronic heart failure history chronic diastolic function. Patient has pulm edema on exam patient does have elevated JVD as well. Patient denied any UTI symptoms urine is significant. Mildly abnormal because of which patient was started on antibiotics patient has asymptomatic bacteriuria. CT of the head was done which showed periventricular white matter ischemic changes and patient does have right-sided facial droop as well. CT angio of the head did not show any significant abnormality neurology was consulted physical therapy Occupational Therapy and speech therapy were consulted. 12/24/2024 Patient seen and examined at bedside. She continues to have right-sided facial droop with aphasia. MRI and echocardiogram completed. Neurology following patient. N.p.o. until speech evaluation completed. 12/27/2024 Patient seen and examined at bedside. During exam patient does continue to have aphasia with right-sided facial droop. She was evaluated by PT with progressive weakness, and drooling noted. CT brain with no new changes. She will likely need rehab. Patient is being seen by neurology. Maintained on Eliquis, Plavix. 12/28/2024 Patient seen and examined at bedside. She is awaiting placement for rehab. During exam patient does continue to have aphasia with right-sided facial droop. MRI findings of no foci in frontal parietal lobes, consistent with acute/subacute ischemia. Patient is being seen by neurology. Maintained on Eliquis, Plavix. REVIEW OF SYSTEMS: All other systems are negative except those mentioned in the HPI PHYSICAL EXAMINATION: Vitals reviewed GENERAL: The patient is alert and oriented x3, not in any acute distress. Well developed, well nourished. CARDIOVASCULAR: S1 and S2 present. No murmurs, rubs, or gallops. PULMONARY: Normal breath sound bilaterally ABDOMEN: Soft, nontender, nondistended, normoactive bowel sounds. No palpable organomegaly. MUSCULOSKELETAL: No joint swelling or deformity. EXTREMITIES: No cyanosis, clubbing, or pedal edema. NEUROLOGICAL: Motor aphasia as mentioned above along with right-sided facial droop. SKIN: No rashes. Today's findings: Labs WBC 11.4, BUN 46, creatinine 1.95, glucose 112 MRI brain interpreted as redemonstration of foci of restricted diffusion within the left frontal parietal lobes with several new foci within these regions. Additional new focus within the right frontal lobe. Findings are consistent with acute/subacute ischemia. Raises concerns for embolic phenomenon due to distribution. Assessment and plan -Cerebrovascular accident probably embolic in nature involving the frontal and parietal lobes on the left side from her atrial fibrillation patient is on Eliquis which was resumed. MRI brain complete, hemoglobin A1c and lipid panel reviewed, PT and OT. Continue dysphagia diet. -Paroxysmal atrial fibrillation patient will be resumed on rate control medications - Congestive heart failure: Chronic diastolic function with acute exacerbation patient was given a dose of IV Lasix and patient started back on 20 mg IV twice daily of Lasix which will be continued - COPD with mild acute exacerbation patient will be started on inhaled steroids inhalational treatments patient quit smoking -Asymptomatic bacteriuria will not require any antibiotics -Hypertension - Gastroesophageal flux disease - Hypothyroidism Hypokalemiagiven potassium chloride - EMILI due to hypovolemia, nonoliguric, begin IV normal saline For above-mentioned chronic medical problems patient will be resumed on appropriate home medications DVT prophylaxis: Resume Eliquis Dr. Haro seen patient with resident, present during exam, and agreed with findings. Objective - Vital Signs Vital signs: Vital Signs Temp 97.9 F 12/28/24 03:41 Pulse 76 12/28/24 03:41 Resp 14 12/28/24 03:41 BP 137/75 12/28/24 03:41 Pulse Ox 94 L 12/28/24 03:41 FiO2 Intake & Output 12/27/24 12/28/24 12/28/24 18:59 06:59 18:59 Intake Total 190 50 Output Total 300 450 Balance -110 -400 Weight 64 kg Intake: IV 10 Invasive Line 1 10 Oral 180 50 Output: Urine 300 450 Other: Voiding Method Diaper Diaper External Catheter # Voids 1 - Labs CBC & Chem 7: 12/28/24 06:00 12/28/24 06:00 Labs: Abnormal Lab Results - Last 24 Hours (Table) 12/28/24 12/28/24 Range/Units 06:00 06:00 WBC 11.46 H (4.50-10.00) 10*3/uL BUN 46 H (7-17) mg/dL Creatinine 1.95 H (0.52-1.04) mg/dL Glucose 112 H (74-99) mg/dL
[2024-12-29 06:23] LABS: HCT 37.5 % (37.2-46.3); HGB 12.1 g/dL (12.0-15.0); MCH 28.5 pg (27.0-32.0); MCHC 32.3 g/dL (32.0-37.0); MCV 88.2 fL (80.0-97.0); Mean Platelet Volume 9.8 fL (9.5-12.2); Platelet Count 350 10*3/uL (140-440); RBC 4.25 10*6/uL (4.10-5.20); RDW 15.9 % (11.5-14.5); WBC 10.63 10*3/uL (4.50-10.00)
[2024-12-29 06:53] LABS: African American GFR (CKD) 35 (>60 ml/min/1.73 sqM); Anion Gap 7 mmol/L; Blood Urea Nitrogen 39 mg/dL (7-17); Calcium 8.9 mg/dL (8.4-10.2); Carbon Dioxide 27 mmol/L (22-30); Chloride 103 mmol/L (98-107); Glucose 106 mg/dL (74-99); Non-African American GFR(CKD) 30 (>60 ml/min/1.73 sqM); Potassium 3.8 mmol/L (3.5-5.1); Sodium 137 mmol/L (137-145)
--- NOTE | 2024-12-29 07:52 | P.PN ---
Subjective Progress Note Date: 12/28/24 12/28/2024: Patient was seen for a follow-up. Patient's grand nieces were also present. They believe patient is slightly better, but she still has right facial droop, slurring and right pronation but no drift. No new concerns. 12/27/2024: Patient was seen for follow-up. Patient states that she still is getting worse. Any time she starts doing physical therapy, her symptoms get worse. I don't think she is any worse than yesterday. 12/26/2024: Patient was seen for a follow-up. Patient apparently has got worse today. Patient's speech is more slurred, more right facial droop, and right arm feels more numb. Neurology was reconsulted. Patient was otherwise ready for discharge. 12/25/2024: Patient was seen for a follow-up. Patient is doing better, her speech is better, face appears better, with less asymmetry. Patient continues to complain of significant migraine headache. 12/24/2024: Patient was initially seen by Dr. Alvarez. Please refer to her note for details. Patient is a 84-year-old female with new onset slurred speech, right facial droop and right-sided weakness. CT/CTA negative. She has failed swallow study. Patient has been on Eliquis 5 mg twice daily prior to arrival to the hospital. Patient is laying comfortably in the bed. Patient states that she has diffic ulty with speaking, but denies any other focal symptoms. Patient states that whenever she gets migraine, she gets double vision. She is experiencing double vision at this time. This has been going on for "years". She also gets squiggly lines in the vision with migraines. Patient states her migraines can last for couple days up to couple months. Patient states she has smoked half pack per day for 40 years, quit at age 60. Objective - Vital Signs Vital signs: Vital Signs Temp 98.2 F 12/28/24 15:46 Pulse 76 12/28/24 15:46 Resp 14 12/28/24 15:46 BP 156/86 12/28/24 15:46 Pulse Ox 97 12/28/24 15:46 FiO2 Intake & Output 12/27/24 12/28/24 12/28/24 18:59 06:59 18:59 Intake Total 190 50 358 Output Total 300 450 250 Balance -110 -400 108 Weight 64 kg 64 kg Intake: IV 10 Invasive Line 1 10 Oral 180 50 358 Output: Urine 300 450 250 Other: Voiding Method Diaper Diaper Diaper External Catheter External Catheter # Voids 1 # Bowel Movements 1 - Exam Patient is an elderly female, laying in the bed, alert and awake. Patient is in no distress. Patient has moderate dysarthria. No aphasia. Patient can name and repeat. Patient knows it is December 2024 and that she is in [facility] in [facility]. On cranial examination pupils are equal, round and reacting to light, visual paez are full with no neglect. Patient's right facial droop , central type. Extraocular muscles are intact. Her tongue slightly protrudes to the right. On muscle status and there is right pronation, no drift. The strength is normal in arms and legs distally and proximally. Sensory to touch is equal with no neglect. Patient has significant past-pointing with problems with depth perception with both upper limbs. No ataxia in the lower limbs. - Labs CBC & Chem 7: 12/29/24 05:55 12/29/24 05:55 Labs: Abnormal Lab Results - Last 24 Hours (Table) 12/28/24 12/28/24 Range/Units 06:00 06:00 WBC 11.46 H (4.50-10.00) 10*3/uL BUN 46 H (7-17) mg/dL Creatinine 1.95 H (0.52-1.04) mg/dL Glucose 112 H (74-99) mg/dL Assessment and Plan Assessment: The patient is an 83-year-old female with slurred speech and right-sided weakness 1. Acute stroke, multifocal, involving left middle cerebral artery territory. Event appears embolic in nature. Patient has subsequently developed more areas of ischemic infarction in the left hemispheric region while in the hospital. 2. History of atrial fibrillation on Eliquis 3. Bilateral ICA stenosis, about 56% in the right ICA and 47% in the left ICA. However the left ICA stenosis appears symptomatic. 4. History of hypertension 5. History of COPD 6. Pulmonary edema and congestive heart failure 7. Ex tobacco use 8. Hyperlipidemia 9. Migraine headaches Plan: 1. Repeat MRI of the brain revealed redemonstration of foci of restricted diffusion within the left frontoparietal lobes with several new foci within these region. Additional new focus within the right frontal lobe. Findings are consistent with acute/subacute ischemia. Raises concern for embolic from in and due to distribution. Similar advanced nonspecific white matter changes, likely related to small vessel ischemic disease. Remote ischemic injury within the right frontal lobe. I personally reviewed MRI agree with the findings. 2. Initial MRI of the brain revealed few foci of restricted diffusion within the left frontal and parietal lobes consistent with acute/subacute ischemia. Advanced nonspecific white matter changes, likely related to small vessel ischemic disease. Remote ischemic injury within the right frontal lobe. I personally reviewed MRI, agree with the findings. 3. We will switch from aspirin to Plavix 75 mg. Continue Eliquis 5 mg twice daily. (Prior to arrival, patient was on aspirin 81 mg and Eliquis). 4. Consult vascular surgery for possible symptomatic bilateral ICA stenosis, left > right. 5. 2D echo revealed LVEF 55 to 60%. No obvious regional wall motion abnormalities. Mild concentric LVH. Grade 2 diastolic dysfunction. Thickened and calcified mitral leaflets with mild MR. Moderate left atrial dilation. No evidence of [id number]-[id number]-[id number] shunt on bubble study. Moderate left atrial dilation. 6. Speech therapy consultation regarding swallow eval 7. CTA of head and neck revealed moderate narrowing of 56% of the right ICA. Mild narrowing of the left ICA about 47%. 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 The right ICA stenosis is not symptomatic, as symptoms are on the ipsilateral side. 8. Hemoglobin A1c 6.2 9. Lipid panel with cholesterol 232, LDL 127, HDL 78, triglycerides 133. Patient was not on statins at home. Patient started on Lipitor 40 mg daily. Watch for hepatic panel. 10. Patient declined to go to subacute rehab. She was to go home with home care. Discussed with physical medicine and rehab team. 11. We will give Fioricet for migraine. 12. PT, OT, speech therapy.
--- NOTE | 2024-12-29 12:14 | P.PN ---
Subjective Progress Note Date: 12/29/24 83-year-old female came in complaints of slurred speech that started today morning at 5:45 AM. Patient does not have any other focal weakness. Patient does have history of atrial fibrillation on Eliquis at home. Patient also has chronic heart failure history chronic diastolic function. Patient has pulm edema on exam patient does have elevated JVD as well. Patient denied any UTI symptoms urine is significant. Mildly abnormal because of which patient was started on antibiotics patient has asymptomatic bacteriuria. CT of the head was done which showed periventricular white matter ischemic changes and patient does have right-sided facial droop as well. CT angio of the head did not show any significant abnormality neurology was consulted physical therapy Occupational Therapy and speech therapy were consulted. 12/24/2024 Patient seen and examined at bedside. She continues to have right-sided facial droop with aphasia. MRI and echocardiogram completed. Neurology following patient. N.p.o. until speech evaluation completed. 12/27/2024 Patient seen and examined at bedside. During exam patient does continue to have aphasia with right-sided facial droop. She was evaluated by PT with progressive weakness, and drooling noted. CT brain with no new changes. She will likely need rehab. Patient is being seen by neurology. Maintained on Eliquis, Plavix. 12/28/2024 Patient seen and examined at bedside. She is awaiting placement for rehab. During exam patient does continue to have aphasia with right-sided facial droop. MRI findings of no foci in frontal parietal lobes, consistent with acute/subacute ischemia. Patient is being seen by neurology. Maintained on Eliquis, Plavix. 12/29/2024 Patient seen and examined at bedside. She is awaiting placement for rehab. During exam patient does continue to have aphasia with right-sided facial droop. Patient is being seen by neurology. Maintained on Eliquis, Plavix. REVIEW OF SYSTEMS: All other systems are negative except those mentioned in the HPI PHYSICAL EXAMINATION: Vitals reviewed GENERAL: The patient is alert and oriented x3, not in any acute distress. Well developed, well nourished. CARDIOVASCULAR: S1 and S2 present. No murmurs, rubs, or gallops. PULMONARY: Normal breath sound bilaterally ABDOMEN: Soft, nontender, nondistended, normoactive bowel sounds. No palpable organomegaly. MUSCULOSKELETAL: No joint swelling or deformity. EXTREMITIES: No cyanosis, clubbing, or pedal edema. NEUROLOGICAL: Motor aphasia as mentioned above along with right-sided facial droop. SKIN: No rashes. Today's findings: Labs WBC 10.6, BUN 39, creatinine 1.59 No new imaging Assessment and plan -Cerebrovascular accident probably embolic in nature involving the frontal and parietal lobes on the left side from her atrial fibrillation patient is on Eliquis which was resumed. MRI brain complete, hemoglobin A1c and lipid panel reviewed, PT and OT. Continue dysphagia diet. -Paroxysmal atrial fibrillation patient will be resumed on rate control medications - Congestive heart failure: Chronic diastolic function with acute exacerbation patient was given a dose of IV Lasix and patient started back on 20 mg IV twice daily of Lasix which will be continued - COPD with mild acute exacerbation patient will be started on inhaled steroids inhalational treatments patient quit smoking -Asymptomatic bacteriuria will not require any antibiotics -Hypertension - Gastroesophageal flux disease - Hypothyroidism Hypokalemiagiven potassium chloride - EMILI due to hypovolemia, nonoliguric, improving, discontinue IV fluids For above-mentioned chronic medical problems patient will be resumed on appropriate home medications DVT prophylaxis: Resume Eliquis Dr. Gerard seen patient with resident, present during exam, and agreed with findings. Objective - Vital Signs Vital signs: Vital Signs Temp 97.9 F 12/29/24 08:17 Pulse 70 12/29/24 08:17 Resp 14 12/29/24 08:17 BP 165/82 12/29/24 08:17 Pulse Ox 96 12/29/24 08:17 FiO2 Intake & Output 12/28/24 12/29/24 12/29/24 18:59 06:59 18:59 Intake Total 358 Output Total 250 550 Balance 108 -550 Weight 64 kg 63.5 kg Intake: Oral 358 Output: Urine 250 550 Other: Voiding Method Diaper Diaper External Catheter External Catheter # Bowel Movements 1 - Labs CBC & Chem 7: 12/29/24 05:55 12/29/24 05:55 Labs: Abnormal Lab Results - Last 24 Hours (Table) 12/29/24 12/29/24 Range/Units 05:55 05:55 WBC 10.63 H (4.50-10.00) 10*3/uL BUN 39 H (7-17) mg/dL Creatinine 1.59 H (0.52-1.04) mg/dL Glucose 106 H (74-99) mg/dL
--- NOTE | 2024-12-30 07:50 | P.PN ---
Subjective Progress Note Date: 12/29/24 12/29/2024: Patient was seen for follow-up. Family members were not present today. Patient denies any new neurological symptoms. No worsening. Overall stable. 12/28/2024: Patient was seen for a follow-up. Patient's grand nieces were also present. They believe patient is slightly better, but she still has right facial droop, slurring and right pronation but no drift. No new concerns. 12/27/2024: Patient was seen for follow-up. Patient states that she still is getting worse. Any time she starts doing physical therapy, her symptoms get worse. I don't think she is any worse than yesterday. 12/26/2024: Patient was seen for a follow-up. Patient apparently has got worse today. Patient's speech is more slurred, more right facial droop, and right arm feels more numb. Neurology was reconsulted. Patient was otherwise ready for discharge. 12/25/2024: Patient was seen for a follow-up. Patient is doing better, her speech is better, face appears better, with less asymmetry. Patient continues to complain of significant migraine headache. 12/24/2024: Patient was initially seen by Dr. Alvarez. Please refer to her note for details. Patient is a 84-year-old female with new onset slurred speech, right facial droop and right-sided weakness. CT/CTA negative. She has failed swallow study. Patient has been on Eliquis 5 mg twice daily prior to arrival to the hospital. Patient is laying comfortably in the bed. Patient states that she has difficulty with speaking, but denies any other focal symptoms. Patient states that whenever she gets migraine, she gets double vision. She is experiencing double vision at this time. This has been going on for "years". She also gets squiggly lines in the vision with migraines. Patient states her migraines can last for couple days up to couple months. Patient states she has smoked half pack per day for 40 years, quit at age 60. Objective - Vital Signs Vital signs: Vital Signs Temp 97.7 F 12/29/24 15:40 Pulse 67 12/29/24 15:40 Resp 14 12/29/24 15:40 BP 146/83 12/29/24 15:40 Pulse Ox 97 12/29/24 15:40 FiO2 Intake & Output 12/28/24 12/29/24 12/29/24 18:59 06:59 18:59 Intake Total 358 500 Output Total 250 550 75 Balance 108 -550 425 Weight 64 kg 63.5 kg Intake: Oral 358 500 Output: Urine 250 550 75 Other: Voiding Method Diaper Diaper Diaper External Catheter External Catheter External Catheter # Bowel Movements 1 1 - Exam Patient is an elderly female, laying in the bed, alert and awake. Patient is in no distress. Patient has moderate dysarthria. No aphasia. Patient can name and repeat. Patient knows it is December 2024 and that she is in [facility] in [facility]. On cranial examination pupils are equal, round and reacting to light, visual paez are full with no neglect. Patient's right facial droop , central type. Extraocular muscles are intact. Her tongue slightly protrudes to the right. On muscle status and there is right pronation, no drift. The strength is normal in arms and legs distally and proximally. Sensory to touch is equal with no neglect. Patient has significant past-pointing with problems with depth perception with both upper limbs. No ataxia in the lower limbs. - Labs CBC & Chem 7: 12/29/24 05:55 12/29/24 05:55 Labs: Abnormal Lab Results - Last 24 Hours (Table) 12/29/24 12/29/24 Range/Units 05:55 05:55 WBC 10.63 H (4.50-10.00) 10*3/uL BUN 39 H (7-17) mg/dL Creatinine 1.59 H (0.52-1.04) mg/dL Glucose 106 H (74-99) mg/dL Assessment and Plan Assessment: The patient is an 83-year-old female with slurred speech and right-sided weakness 1. Acute stroke, multifocal, involving left middle cerebral artery territory. Event appears embolic in nature. Patient has subsequently developed more areas of ischemic infarction in the left hemispheric region while in the hospital. 2. History of atrial fibrillation on Eliquis 3. Bilateral ICA stenosis, about 56% in the right ICA and 47% in the left ICA. However the left ICA stenosis appears symptomatic. 4. History of hypertension 5. History of COPD 6. Pulmonary edema and congestive heart failure 7. Ex tobacco use 8. Hyperlipidemia 9. Migraine headaches Plan: 1. Repeat MRI of the brain revealed redemonstration of foci of restricted diffusion within the left frontoparietal lobes with several new foci within these region. Additional new focus within the right frontal lobe. Findings are consistent with acute/subacute ischemia. Raises concern for embolic from in and due to distribution. Similar advanced nonspecific white matter changes, likely related to small vessel ischemic disease. Remote ischemic injury within the right frontal lobe. I personally reviewed MRI agree with the findings. 2. Initial MRI of the brain revealed few foci of restricted diffusion within the left frontal and parietal lobes consistent with acute/subacute ischemia. Advanced nonspecific white matter changes, likely related to small vessel ischemic disease. Remote ischemic injury within the right frontal lobe. I personally reviewed MRI, agree with the findings. 3. We will switch from aspirin to Plavix 75 mg. Continue Eliquis 5 mg twice daily. (Prior to arrival, patient was on aspirin 81 mg and Eliquis). 4. Await vascular surgery for possible symptomatic bilateral ICA stenosis, left > right. 5. 2D echo revealed LVEF 55 to 60%. No obvious regional wall motion abnormalities. Mild concentric LVH. Grade 2 diastolic dysfunction. Thickened and calcified mitral leaflets with mild MR. Moderate left atrial dilation. No evidence of [id number] shunt on bubble study. Moderate left atrial dilation. 6. Speech therapy consultation regarding swallow eval 7. CTA of head and neck revealed moderate narrowing of 56% of the right ICA. Mild narrowing of the left ICA about 47%. 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 The right ICA stenosis is not symptomatic, as symptoms are on the ipsilateral side. 8. Hemoglobin A1c 6.2 9. Lipid panel with cholesterol 232, LDL 127, HDL 78, triglycerides 133. Patient was not on statins at home. Patient started on Lipitor 40 mg daily. Watch for hepatic panel. 10. Patient declined to go to subacute rehab. She was to go home with home care. Discussed with physical medicine and rehab team. 11. We will give Fioricet for migraine. 12. PT, OT, speech therapy.
[2024-12-30 08:35] LABS: HCT 43.7 % (37.2-46.3); HGB 14.1 g/dL (12.0-15.0); MCH 29.3 pg (27.0-32.0); MCHC 32.3 g/dL (32.0-37.0); MCV 90.9 fL (80.0-97.0); Mean Platelet Volume 9.8 fL (9.5-12.2); Platelet Count 369 10*3/uL (140-440); RBC 4.81 10*6/uL (4.10-5.20); RDW 15.9 % (11.5-14.5); WBC 9.39 10*3/uL (4.50-10.00)
[2024-12-30 08:49] LABS: African American GFR (CKD) 40 (>60 ml/min/1.73 sqM); Anion Gap 9 mmol/L; Blood Urea Nitrogen 30 mg/dL (7-17); Calcium 9.4 mg/dL (8.4-10.2); Carbon Dioxide 24 mmol/L (22-30); Chloride 108 mmol/L (98-107); Glucose 110 mg/dL (74-99); Non-African American GFR(CKD) 35 (>60 ml/min/1.73 sqM); Potassium 4.2 mmol/L (3.5-5.1); Sodium 141 mmol/L (137-145)
[2024-12-30] MEDS: FUROSEMIDE 40 MG TAB PO SCH (09:19)
[2024-12-30] MEDS: amLODIPine 5 MG TAB PO SCH (14:16)
--- NOTE | 2024-12-30 14:18 | P.PN ---
Subjective Progress Note Date: 12/30/24 12/30/2024: Patient was seen for follow-up. Patient complaining of overall feeling good, but has a headache. She states [employer] is not working. She is on tramadol once a day. She drinks 1 cup of coffee per day. Does not take excessive caffeine. Her blood pressure has been running high. Uncertain if the headache related to the blood pressure. Denies any new focal symptoms. 12/29/2024: Patient was seen for follow-up. Family members were not present today. Patient denies any new neurological symptoms. No worsening. Overall stable. 12/28/2024: Patient was seen for a follow-up. Patient's grand nieces were also present. They believe patient is slightly better, but she still has right facial droop, slurring and right pronation but no drift. No new concerns. 12/27/2024: Patient was seen for follow-up. Patient states that she still is getting worse. Any time she starts doing physical therapy, her symptoms get worse. I don't think she is any worse than yesterday. 12/26/2024: Patient was seen for a follow-up. Patient apparently has got worse today. Patient's speech is more slurred, more right facial droop, and right arm feels more numb. Neurology was reconsulted. Patient was otherwise ready for discharge. 12/25/2024: Patient was seen for a follow-up. Patient is doing better, her speech is better, face appears better, with less asymmetry. Patient continues to complain of significant migraine headache. 12/24/2024: Patient was initially seen by Dr. Alvarez. Please refer to her note for details. Patient is a 84-year-old female with new onset slurred speech, right facial droop and right-sided weakness. CT/CTA negative. She has failed swallow study. Patient has been on Eliquis 5 mg twice daily prior to arrival to the hospital. Patient is laying comfortably in the bed. Patient states that she has difficu lty with speaking, but denies any other focal symptoms. Patient states that whenever she gets migraine, she gets double vision. She is experiencing double vision at this time. This has been going on for "years". She also gets squiggly lines in the vision with migraines. Patient states her migraines can last for couple days up to couple months. Patient states she has smoked half pack per day for 40 years, quit at age 60. Objective - Vital Signs Vital signs: Vital Signs Temp 97.7 F 12/30/24 12:00 Pulse 68 12/30/24 12:00 Resp 18 12/30/24 12:00 BP 183/90 12/30/24 12:15 Pulse Ox 96 12/30/24 12:00 FiO2 Intake & Output 12/29/24 12/30/24 12/30/24 18:59 06:59 18:59 Intake Total 700 100 Output Total 425 450 Balance 275 -450 100 Weight 65 kg Intake: Oral 700 100 Output: Urine 425 450 Other: Voiding Method Diaper Diaper Diaper External Catheter External Catheter External Catheter # Bowel Movements 1 - Exam Patient is an elderly female, laying in the bed, alert and awake. Patient is in no distress. Patient has moderate dysarthria. No aphasia. Patient can name and repeat. Patient knows it is December 2024 and that she is in [facility] in [facility]. On cranial examination pupils are equal, round and reacting to light, visual paez are full with no neglect. Patient's right facial droop , central type. Extraocular muscles are intact. Her tongue slightly protrudes to the right. On muscle status and there is right pronation, no drift. The strength is normal in arms and legs distally and proximally. Sensory to touch is equal with no neglect. Patient has significant past-pointing with problems with depth perception with both upper limbs. No ataxia in the lower limbs. - Labs CBC & Chem 7: 12/30/24 08:20 12/30/24 08:20 Labs: Abnormal Lab Results - Last 24 Hours (Table) 12/30/24 Range/Units 08:20 Chloride 108 H (98-107) mmol/L BUN 30 H (7-17) mg/dL Creatinine 1.40 H (0.52-1.04) mg/dL Glucose 110 H (74-99) mg/dL Assessment and Plan Assessment: The patient is an 83-year-old female with slurred speech and right-sided weakness 1. Acute stroke, multifocal, involving left middle cerebral artery territory. Event appears embolic in nature. Patient has subsequently developed more areas of ischemic infarction in the left hemispheric region while in the hospital. 2. History of atrial fibrillation on Eliquis 3. Bilateral ICA stenosis, about 56% in the right ICA and 47% in the left ICA. However the left ICA stenosis appears symptomatic. 4. History of hypertension 5. History of COPD 6. Pulmonary edema and congestive heart failure 7. Ex tobacco use 8. Hyperlipidemia 9. Migraine headaches Plan: 1. Repeat MRI of the brain revealed redemonstration of foci of restricted diffusion within the left frontoparietal lobes with several new foci within these region. Additional new focus within the right frontal lobe. Findings are consistent with acute/subacute ischemia. Raises concern for embolic from in and due to distribution. Similar advanced nonspecific white matter changes, likely related to small vessel ischemic disease. Remote ischemic injury within the right frontal lobe. I personally reviewed MRI agree with the findings. 2. Initial MRI of the brain revealed few foci of restricted diffusion within the left frontal and parietal lobes consistent with acute/subacute ischemia. Advanced nonspecific white matter changes, likely related to small vessel ischemic disease. Remote ischemic injury within the right frontal lobe. I personally reviewed MRI, agree with the findings. 3. We will switch from aspirin to Plavix 75 mg. Continue Eliquis 5 mg twice daily. (Prior to arrival, patient was on aspirin 81 mg and Eliquis). 4. Await vascular surgery for possible symptomatic bilateral ICA stenosis, left > right. 5. 2D echo revealed LVEF 55 to 60%. No obvious regional wall motion abnormalities. Mild concentric LVH. Grade 2 diastolic dysfunction. Thickened and calcified mitral leaflets with mild MR. Moderate left atrial dilation. No evidence of [id number] shunt on bubble study. Moderate left atrial dilation. 6. Speech therapy consultation regarding swallow eval 7. CTA of head and neck revealed moderate narrowing of 56% of the right ICA. Mild narrowing of the left ICA about 47%. 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 The right ICA stenosis is not symptomatic, as symptoms are on the ipsilateral side. 8. Hemoglobin A1c 6.2 9. Lipid panel with cholesterol 232, LDL 127, HDL 78, triglycerides 133. Patient was not on statins at home. Patient started on Lipitor 40 mg daily. Watch for hepatic panel. 10. Patient declined to go to subacute rehab. She was to go home with home care. Discussed with physical medicine and rehab team. 11. Fioricet is not helping for her migraine. Continue tramadol.. Her he adache could be related to significantly elevated blood pressure. Recommend optimize control of blood pressure. 12. PT, OT, speech therapy. 13. Dr. Tod Esqueda will resume neurology service in the morning.
--- NOTE | 2024-12-30 21:57 | P.PN ---
Subjective Progress Note Date: 12/30/24 83-year-old female came in complaints of slurred speech that started today morning at 5:45 AM. Patient does not have any other focal weakness. Patient does have history of atrial fibrillation on Eliquis at home. Patient also has chronic heart failure history chronic diastolic function. Patient has pulm edema on exam patient does have elevated JVD as well. Patient denied any UTI symptoms urine is significant. Mildly abnormal because of which patient was started on antibiotics patient has asymptomatic bacteriuria. CT of the head was done which showed periventricular white matter ischemic changes and patient does have right-sided facial droop as well. CT angio of the head did not show any significant abnormality neurology was consulted physical therapy Occupational Therapy and speech therapy were consulted. 12/24/2024 Patient seen and examined at bedside. She continues to have right-sided facial droop with aphasia. MRI and echocardiogram completed. Neurology following patient. N.p.o. until speech evaluation completed. 12/27/2024 Patient seen and examined at bedside. During exam patient does continue to have aphasia with right-sided facial droop. She was evaluated by PT with progressive weakness, and drooling noted. CT brain with no new changes. She will likely need rehab. Patient is being seen by neurology. Maintained on Eliquis, Plavix. 12/28/2024 Patient seen and examined at bedside. She is awaiting placement for rehab. During exam patient does continue to have aphasia with right-sided facial droop. MRI findings of no foci in frontal parietal lobes, consistent with acute/subacute ischemia. Patient is being seen by neurology. Maintained on Eliquis, Plavix. 12/29/2024 Patient seen and examined at bedside. She is awaiting placement for rehab. During exam patient does continue to have aphasia with right-sided facial droop. Patient is being seen by neurology. Maintained on Eliquis, Plavix. 12/30/2024 Patient is lying in the bed. Awake alert and oriented. Feels better. Complains of headache today. Blood pressure is also elevated. Patient was started on Norvasc 5 mg daily. Titrate dose as needed. Patient is tolerating oral diet. Laboratory pressure WBC 9.39 hemoglobin 14.1 and platelets 369 sodium 141 potassium 4.2 chloride 108 bicarbonate 24 BUN 13 creatinine 1.40 and blood sugar 110. REVIEW OF SYSTEMS: All other systems are negative except those mentioned in the HPI PHYSICAL EXAMINATION: Vitals reviewed GENERAL: The patient is alert and oriented x3, not in any acute distress. Well developed, well nourished. CARDIOVASCULAR: S1 and S2 present. No murmurs, rubs, or gallops. PULMONARY: Normal breath sound bilaterally ABDOMEN: Soft, nontender, nondistended, normoactive bowel sounds. No palpable organomegaly. MUSCULOSKELETAL: No joint swelling or deformity. EXTREMITIES: No cyanosis, clubbing, or pedal edema. NEUROLOGICAL: Motor aphasia as mentioned above along with right-sided facial droop. SKIN: No rashes. Today's findings: Labs WBC 10.6, BUN 39, creatinine 1.59 No new imaging Assessment and plan -Cerebrovascular accident probably embolic in nature involving the frontal and parietal lobes on the left side from her atrial fibrillation patient is on Eliquis which was resumed. MRI brain complete, hemoglobin A1c and lipid panel reviewed, PT and OT. Continue dysphagia diet. Aspirin changed to Plavix. -Bilateral ICA stenosis, about 56% in the right ICA and 47% in the left ICA. However the left ICA stenosis appears symptomatic. Pending vascular surgery consult. -Paroxysmal atrial fibrillation patient will be resumed on rate control medications and anticoagulation with Eliquis. - Congestive heart failure: Chronic diastolic function with acute exacerbation patient was given a dose of IV Lasix and patient started back on 20 mg IV twice daily of Lasix which will be continued - COPD with mild acute exacerbation improved. Continue with DuoNebs and Symbicort. -Asymptomatic bacteriuria will not require any antibiotics -Hypertension uncontrolled. - Gastroesophageal flux disease - Hypothyroidism Hypokalemiagiven potassium chloride - EMILI due to hypovolemia, nonoliguric, improving. Continue to follow. For above-mentioned chronic medical problems patient will be resumed on appropriate home medications DVT prophylaxis: Resume Eliquis Objective - Vital Signs Vital signs: Vital Signs Temp 98.2 F 12/30/24 08:00 Pulse 70 12/30/24 08:00 Resp 18 12/30/24 08:00 BP 158/78 12/30/24 08:00 Pulse Ox 96 12/30/24 08:00 FiO2 Intake & Output 12/29/24 12/30/24 12/30/24 18:59 06:59 18:59 Intake Total 700 100 Output Total 425 450 Balance 275 -450 100 Weight 65 kg Intake: Oral 700 100 Output: Urine 425 450 Other: Voiding Method Diaper Diaper Diaper External Catheter External Catheter External Catheter # Bowel Movements 1 - Labs CBC & Chem 7: 12/30/24 08:20 12/30/24 08:20 Labs: Abnormal Lab Results - Last 24 Hours (Table) 12/30/24 Range/Units 08:20 Chloride 108 H (98-107) mmol/L BUN 30 H (7-17) mg/dL Creatinine 1.40 H (0.52-1.04) mg/dL Glucose 110 H (74-99) mg/dL
[2024-12-31] MEDS: HYDROcodone/APAP 5-325MG 1 EACH TAB PO STA (02:08)
[2024-12-31 07:11] LABS: African American GFR (CKD) 48 (>60 ml/min/1.73 sqM); Anion Gap 8 mmol/L; Blood Urea Nitrogen 29 mg/dL (7-17); Calcium 9.1 mg/dL (8.4-10.2); Carbon Dioxide 26 mmol/L (22-30); Chloride 107 mmol/L (98-107); Glucose 99 mg/dL (74-99); Non-African American GFR(CKD) 41 (>60 ml/min/1.73 sqM); Potassium 4.1 mmol/L (3.5-5.1); Sodium 141 mmol/L (137-145)
[2024-12-31 07:23] LABS: Basophils # (A) 0.04 10*3/uL (0.00-0.10); Basophils % (A) 0.4 %; Eosinophils # (A) 0.41 10*3/uL (0.04-0.35); Eosinophils % (A) 4.6 %; HCT 38.6 % (37.2-46.3); HGB 12.2 g/dL (12.0-15.0); Lymphocytes # (A) 2.81 10*3/uL (0.90-5.00); Lymphocytes % (A) 31.3 %; MCH 28.4 pg (27.0-32.0); MCHC 31.6 g/dL (32.0-37.0); Mean Platelet Volume 10.2 fL (9.5-12.2); Monocytes # (A) 1.07 10*3/uL (0.20-1.00); Monocytes % (A) 11.9 %; Neutrophils % (A) 51.4 %; Platelet Count 340 10*3/uL (140-440); RBC 4.29 10*6/uL (4.10-5.20); WBC 8.97 10*3/uL (4.50-10.00)
--- NOTE | 2024-12-31 10:25 | US ---
EXAMINATION TYPE: US carotid duplex BILAT DATE OF EXAM: 12/31/2024 Exam done portable COMPARISON: US 2021, CTA head and neck 12/23/2024 CLINICAL INDICATION: Female, 84 years old with history of stroke; TECHNIQUE: Grayscale, color Doppler and spectral Doppler evaluation of the bilateral carotid systems and vertebral arteries. Indirect Doppler criteria was utilized. FINDINGS: EXAM MEASUREMENTS: RIGHT: Peak Systolic Velocity (PSV) cm/sec ----- Right CCA: 65.5 ----- Right ICA: 119.8 ----- Right ECA: 66.0 ICA/CCA ratio: 1.8 RIGHT: End Diastole cm/sec ----- Right CCA: 6.2 ----- Right ICA: 21.5 ----- Right ECA: 0.0 LEFT: Peak Systolic Velocity (PSV) cm/sec ----- Left CCA: 113.7 ----- Left ICA: 90.0 ----- Left ECA: 65.5 ICA/CCA ratio: 0.8 LEFT: End Diastole cm/sec ----- Left CCA: 8.5 ----- Left ICA: 14.6 ----- Left ECA: 0.0 VERTEBRALS (direction of flow): Right Vertebral: Antegrade Left Vertebral: Antegrade Rhythm: Normal IMPRESSION: Moderate atherosclerotic plaque at the bilateral carotid bifurcations. Right: Less than 50% stenosis of the carotid bifurcation. Left: Less than 50% stenosis of the carotid bifurcation. Criteria for Assigning % of Stenosis / Diameter reduction (Estimation based on the indirect measurements of the internal carotid artery velocities (ICA PSV). 1. Normal (no stenosis)=ICA PSV < 180 cm/s: ratio < 2.0: ICA EDV<40 cm/s. 2. Less than 50% stenosis=ICA PSV < 180 cm/s: ratio < 2.0: ICA EDV<40 cm/s. 3. 50 to 69% stenosis=ICA PSV of 180 to 230 cm/s: ration 2.0 ? 4.0: ICA EDV 40-100 cm/s. PSV 125-180 cm/sec and ICA/CCA PSV Ratio ? 2.0 is also consistent with 50-69% stenosis 4. Greater than 70% stenosis to near occlusion= ICA PSV > 230 cm/s: ratio > 4.0: ICA EDV > 100 cm/s. 5. Near occlusion= ICA PSV velocities may be low or undetectable: variable ratio and ICA EDV. 6. Total occlusion=unable to detect flow. [facility], , 12/31/2024 10:23 AM
--- NOTE | 2024-12-31 11:23 | P.GSCN ---
History of Present Illness Consult date: 12/31/24 Reason for Consult: Recurrent stroke maxed on medications Requesting physician: Sarah Erwin History of present illness: This a pleasant 84-year-old female who had presented to the emergency department 8 days ago with complaints of slurred speech. Past medical history includes atrial fibrillation diagnosed about a year ago on Eliquis, congestive heart failure, COPD, former smoker, hypertension, legally blind, migraines, and hypothyroid disease. Patient had workup for stroke which showed positive acute ischemic stroke in the left frontal and parietal regions on MRI. She had a CTA of the head and neck that reported 58% ICA stenosis of the right carotid artery and less than 50% on the left ICA. Neurology was consulted. Stroke was thought to be from cardioembolic source. Patient underwent echocardiogram with bubble study with a negative bubble study. Apparently a couple days ago patient's right facial droop had gotten worse and she had a repeat MRI of the brain that reported additional new focus within the right frontal lobe, findings consistent acute/subacute ischemia raises concern for embolic phenomenon due to distribution. Patient also had a remote ischemic injury within the right frontal lobe as noted on previous MRI. Vascular surgery consulted for recurrent stroke. Patient seen and examined she continues to have slurred speech. She has a right facial droop. Denies any weakness of her upper and lower extremities. States that she was diagnosed with atrial fibrillation about a year ago and that she has been consistent taking her Eliquis. She is a former smoker of 40 years and quit at age of [age] years old. Patient states that she follows with Dr. Pedroza for her atrial fibrillation and he has been monitoring her carotid arteries and is supposed to undergo carotid ultrasound in the office first week of February. Patient is currently on Eliquis 5 mg twice daily, atorvastatin 40 mg, and Plavix 75 mg daily. Previous to admission she was on Eliquis 5 mg twice daily and aspirin 81 mg daily. Review of Systems A 14 point review systems was completed all pertinent positives and negatives as stated in the HPI. Past Medical History Past Medical History: Atrial Fibrillation, Asthma, COPD, CVA/TIA, Eye Disorder, GERD/Reflux, Hypertension, Rheumatoid Arthritis (RA), Thyroid Disorder Additional Past Medical History / Comment(s): Other hx: Macular degeneration bilaterally-legally blind, rheumatoid arthritis in multple joints, osteoporosis, migraines, hypothyroid, urinary incontinence at times. History of Any Multi-Drug Resistant Organisms: ESBL Year Discovered:: 06/05/18 MDRO Source:: esbl urine Past Surgical History: Appendectomy, Cholecystectomy, Hysterectomy, Orthopedic Surgery, Tonsillectomy Additional Past Surgical History / Comment(s): D&C, colonoscopy, left knee scope, right arm ORIF. Past Anesthesia/Blood Transfusion Reactions: Motion Sickness Additional Past Anesthesia/Blood Transfusion Reaction / Comm: severe motion sickness Past Psychological History: No Psychological Hx Reported Additional Psychological History / Comment(s): She just got a walker. She is legally blind, no longer drives, her spouse drives and manages her medications. She has contact with a great manuelito that lives next door. She is retired, worked most recently at [employer]. No recent travel. No experience. Smoking Status: Former smoker Past Alcohol Use History: None Reported Past Drug Use History: None Reported - Past Family History Mother Additional Family Medical History / Comment(s): Pt states mother had severe migraines and at the age of 43yrs while hospitalized with severe migraine but does not know cause of . Father Family Medical History: Myocardial Infarction ([place]) Additional Family Medical History / Comment(s): Father of a [place] at the age of 54yrs. Family Additional Family Medical History / Comment(s): Patient denies any history of coronary artery disease Medications and Allergies Home Medications Medication Instructions Recorded Confirmed Type Apixaban [Eliquis] 5 mg PO BID tab 06/10/18 12/23/24 Rx Cholecalciferol [Vitamin D3 (25 25 mcg PO HS 03/14/22 12/23/24 History Mcg = 1000 Iu)] Levothyroxine Sodium [Synthroid] 25 mcg PO DAILY 03/14/22 12/23/24 History Melatonin 3 mg PO HS 11/24/22 12/23/24 History Cyanocobalamin (Vitamin B-12) 1,000 mcg PO DAILY 07/12/24 12/23/24 History [Vitamin B-12] Amiodarone [Cordarone] 200 mg PO BID 12/23/24 12/23/24 History Biotin [Biotin Disolve] 10,000 mcg PO DAILY 12/23/24 12/23/24 History Butalb/Acetaminophen/Caffeine 1 - 2 cap PO BID PRN MDD 4 CAPS 12/23/24 12/23/24 History [Fioricet 50-300-40 mg Capsule] Cholecalciferol (Vitamin D3) 50 mcg PO DAILY 12/23/24 12/23/24 History [Vitamin D3 (50 Mcg = 2000 Iu)] Ipratropium-Albuterol Nebulize 3 ml INHALATION RT-QID PRN 12/23/24 12/23/24 History [Duoneb 0.5 mg-3 mg/3 ml Soln] lisinopriL [Zestril] 10 mg PO DAILY 12/23/24 12/23/24 History traMADol HCL 50 mg PO DAILY 12/23/24 12/23/24 History Atorvastatin [Lipitor] 40 mg PO HS #90 tab 12/25/24 Rx Clopidogrel [Plavix] 75 mg PO DAILY #90 tablet 12/25/24 Rx Furosemide [Lasix] 40 mg PO DAILY #30 tablet 12/25/24 Rx Allergies Allergy/AdvReac Type Severity Reaction Status Date / Time adhesive tape Allergy Unknown Verified 12/23/24 08:49 ciprofloxacin [From Cipro] Allergy Unknown Verified 12/23/24 08:49 epinephrine Allergy Unknown Verified 12/23/24 08:49 latex Allergy Rash/Hives Verified 12/23/24 08:49 Penicillins Allergy Unknown Verified 12/23/24 08:49 povidone-iodine Allergy Unknown Verified 12/23/24 08:49 [From Betadine] soap [From Betadine] Allergy Unknown Verified 12/23/24 08:49 Sulfa (Sulfonamide Allergy Unknown Verified 12/23/24 08:49 Antibiotics) Tetanus Vaccines and Toxoid Allergy Unknown Verified 12/23/24 08:49 amitriptyline [From Elavil] AdvReac Confusion Verified 12/23/24 08:49 Surgical - Exam Vital Signs Temp Pulse Resp BP Pulse Ox 98.1 F 86 18 186/135 96 12/23/24 06:54 12/23/24 06:54 12/23/24 06:54 12/23/24 06:54 12/23/24 06:54 General appearance: The patient is alert, oriented, appears in no acute distress. HET: Head is normocephalic and atraumatic. Pupils are equal and reactive. Neck: Supple. No audible bruit. Heart: Regular. Lungs: Equal expansion, normal respiratory effort. Abdomen: Soft, nontender, nondistended. Extremities: Right groin with excoriation, wound. Palpable radial pulses, nonpalpable DP pulses. Neurological: Patient aphasic, right facial droop. Bilateral upper and lower extremities strength and tone. Results - Labs 12/31/24 06:18 12/31/24 06:18 Abnormal Lab Results - Last 24 Hours (Table) 12/31/24 12/31/24 Range/Units 06:18 06:18 MCHC 31.6 L (32.0-37.0) g/dL Monocytes # 1.07 H (0.20-1.00) 10*3/uL Eosinophils # 0.41 H (0.04-0.35) 10*3/uL BUN 29 H (7-17) mg/dL Creatinine 1.22 H (0.52-1.04) mg/dL Diabetes panel 12/31/24 Range/Units 06:18 Sodium 141 (137-145) mmol/L Potassium 4.1 (3.5-5.1) mmol/L Chloride 107 (98-107) mmol/L Carbon Dioxide 26 (22-30) mmol/L BUN 29 H (7-17) mg/dL Creatinine 1.22 H (0.52-1.04) mg/dL Glucose 99 (74-99) mg/dL Calcium 9.1 (8.4-10.2) mg/dL Calcium panel 12/31/24 Range/Units 06:18 Calcium 9.1 (8.4-10.2) mg/dL Pituitary panel 12/31/24 Range/Units 06:18 Sodium 141 (137-145) mmol/L Potassium 4.1 (3.5-5.1) mmol/L Chloride 107 (98-107) mmol/L Carbon Dioxide 26 (22-30) mmol/L BUN 29 H (7-17) mg/dL Creatinine 1.22 H (0.52-1.04) mg/dL Glucose 99 (74-99) mg/dL Calcium 9.1 (8.4-10.2) mg/dL Adrenal panel 12/31/24 Range/Units 06:18 Sodium 141 (137-145) mmol/L Potassium 4.1 (3.5-5.1) mmol/L Chloride 107 (98-107) mmol/L Carbon Dioxide 26 (22-30) mmol/L BUN 29 H (7-17) mg/dL Creatinine 1.22 H (0.52-1.04) mg/dL Glucose 99 (74-99) mg/dL Calcium 9.1 (8.4-10.2) mg/dL - Imaging Comments: 12/27/2024 brain MRI reports redemonstration of foci of restricted diffusion within the left frontoparietal lobes with several new foci within these regions. Additional new focus within the right frontal lobe. Findings are consistent with acute/subacute ischemia. Raises concern for embolic phenomenon due to distribution. Similar advanced nonspecific white matter changes, likely related to small vessel ischemic disease. Remote ischemic injury within the right frontal lobe. CT angiogram head and neck reports moderate narrowing of 56% of the right internal carotid artery. Mild narrowing of the left internal carotid artery 47%. There appeared to be normal variations within the [place]. These appear to be predominantly right side however with a hypoplastic A1 segment and a less well-visualized right posterior cerebral artery. Echocardiogram with bubble study findings reported of left ventricular ejection fraction estimated 55 to 60%. No obvious regional wall motion abnormalities. Mild concentric LVH. Grade 2 diastolic function. Thickened and calcified mitral leaflets with mild mitral regurgitation. Moderate left atrial dilation. Mild aortic regurgitation. No evidence of [id number] intracardiac shunting on bubble study. Carotid duplex: Impression reads moderate arthrosclerotic plaque at the bilateral carotid bifurcations. Less than 50% stenosis of the carotid bifurcation on the right and less than 50% stenosis of the carotid bifurcation on the left. Assessment and Plan Assessment: 1. Acute ischemic stroke to the left frontal and parietal region and right frontal region with symptoms of aphasia and right facial droop 2. Moderate stenosis of the right ICA per CTA, no hemodynamically significant left ICA stenosis 3. Atrial fibrillation 4. COPD 5. Hypertension 6. Migraines 7. Former smoker Plan: 1. Agree with Eliquis, Plavix and statin, continue medical therapy 2. CT angiogram imaging independently reviewed with no hemodynamically significant carotid stenosis bilaterally 3. Carotid ultrasound ordered and reviewed. Again no hemodynamically significant carotid stenosis bilaterally 4. Continue with further workup and recommendations from neurology 5. There is no indication for any vascular surgical intervention at this time, do not believe ischemic stroke secondary to carotid stenosis 6. Patient does follow with Dr. Pedroza for atrial fibrillation and scheduled for carotid ultrasound. Recommend outpatient follow-up. Thank you for this consultation. The impression and plan of care has been dictated as directed. Dr. Champagne I performed a history and examination of this patient, discussed the same with the dictator. I agree with the dictator's note ,documented as a scribe. Any additional findings or plans will be noted.
--- NOTE | 2024-12-31 15:22 | P.PN ---
Subjective Progress Note Date: 12/31/24 83-year-old female came in complaints of slurred speech that started today morning at 5:45 AM. Patient does not have any other focal weakness. Patient does have history of atrial fibrillation on Eliquis at home. Patient also has chronic heart failure history chronic diastolic function. Patient has pulm edema on exam patient does have elevated JVD as well. Patient denied any UTI symptoms urine is significant. Mildly abnormal because of which patient was started on antibiotics patient has asymptomatic bacteriuria. CT of the head was done which showed periventricular white matter ischemic changes and patient does have right-sided facial droop as well. CT angio of the head did not show any significant abnormality neurology was consulted physical therapy Occupational Therapy and speech therapy were consulted. 12/24/2024 Patient seen and examined at bedside. She continues to have right-sided facial droop with aphasia. MRI and echocardiogram completed. Neurology following patient. N.p.o. until speech evaluation completed. 12/27/2024 Patient seen and examined at bedside. During exam patient does continue to have aphasia with right-sided facial droop. She was evaluated by PT with progressive weakness, and drooling noted. CT brain with no new changes. She will likely need rehab. Patient is being seen by neurology. Maintained on Eliquis, Plavix. 12/28/2024 Patient seen and examined at bedside. She is awaiting placement for rehab. During exam patient does continue to have aphasia with right-sided facial droop. MRI findings of no foci in frontal parietal lobes, consistent with acute/subacute ischemia. Patient is being seen by neurology. Maintained on Eliquis, Plavix. 12/29/2024 Patient seen and examined at bedside. She is awaiting placement for rehab. During exam patient does continue to have aphasia with right-sided facial droop. Patient is being seen by neurology. Maintained on Eliquis, Plavix. 12/30/2024 Patient is lying in the bed. Awake alert and oriented. Feels better. Complains of headache today. Blood pressure is also elevated. Patient was started on Norvasc 5 mg daily. Titrate dose as needed. Patient is tolerating oral diet. Laboratory pressure WBC 9.39 hemoglobin 14.1 and platelets 369 sodium 141 potassium 4.2 chloride 108 bicarbonate 24 BUN 13 creatinine 1.40 and blood sugar 110. 12/31/2024 Patient seen and examined at bedside. She is awake and oriented. She continues to have right-sided aphasia. She is tolerating oral diet. She is awaiting authorization for rehab. REVIEW OF SYSTEMS: All other systems are negative except those mentioned in the HPI PHYSICAL EXAMINATION: Vitals reviewed GENERAL: The patient is alert and oriented x3, not in any acute distress. Well developed, well nourished. CARDIOVASCULAR: S1 and S2 present. No murmurs, rubs, or gallops. PULMONARY: Normal breath sound bilaterally ABDOMEN: Soft, nontender, nondistended, normoactive bowel sounds. No palpable organomegaly. MUSCULOSKELETAL: No joint swelling or deformity. EXTREMITIES: No cyanosis, clubbing, or pedal edema. NEUROLOGICAL: Motor aphasia as mentioned above along with right-sided facial droop. SKIN: No rashes. Today's findings: Labs CBC unremarkable, potassium 4.1, BUN 29, creatinine 1.22 Bilateral carotid Doppler with findings of left and right less than 50% stenosis of carotid bifurcation. Assessment and plan -Cerebrovascular accident probably embolic in nature involving the frontal and parietal lobes on the left side from her atrial fibrillation patient is on Eliquis which was resumed. MRI brain complete, hemoglobin A1c and lipid panel reviewed, PT and OT. Continue dysphagia diet. Aspirin changed to Plavix. -Moderate stenosis of the right ICA per CTA, vascular surgery agrees with medical therapy, no surgical intervention at this time needed. - Atrial fibrillation patient will be resumed on rate control medications and anticoagulation with Eliquis. - Congestive heart failure: Chronic diastolic function with acute exacerbation patient was given a dose of IV Lasix and patient started back on 20 mg IV twice daily of Lasix which will be continued - COPD with mild acute exacerbation improved. Continue with DuoNebs and Symbicort. -Asymptomatic bacteriuria will not require any antibiotics -Hypertension uncontrolled. - Gastroesophageal flux disease - Hypothyroidism Hypokalemiagiven potassium chloride - EMILI due to hypovolemia, nonoliguric, improving. Continue to follow. For above-mentioned chronic medical problems patient will be resumed on appropriate home medications DVT prophylaxis: Resume Eliquis Dr. Haro seen patient with resident, present during exam, and agreed with findings. Objective - Vital Signs Vital signs: Vital Signs Temp 97.7 F 12/31/24 07:54 Pulse 80 12/31/24 12:18 Resp 16 12/31/24 12:18 BP 136/69 12/31/24 12:18 Pulse Ox 95 12/31/24 12:18 FiO2 Intake & Output 12/30/24 12/31/24 12/31/24 18:59 06:59 18:59 Intake Total 340 200 Output Total 1050 Balance -710 200 Weight 68 kg Intake: Oral 340 200 Output: Urine 1050 Other: Voiding Method Diaper Diaper Diaper External Catheter External Catheter # Voids 2 1 - Labs CBC & Chem 7: 12/31/24 06:18 12/31/24 06:18 Labs: Abnormal Lab Results - Last 24 Hours (Table) 12/31/24 12/31/24 Range/Units 06:18 06:18 MCHC 31.6 L (32.0-37.0) g/dL Monocytes # 1.07 H (0.20-1.00) 10*3/uL Eosinophils # 0.41 H (0.04-0.35) 10*3/uL BUN 29 H (7-17) mg/dL Creatinine 1.22 H (0.52-1.04) mg/dL
--- NOTE | 2024-12-31 15:26 | P.PN ---
Subjective Progress Note Date: 12/31/24 I am seeing the patient for the first time during this hospital visit. Please refer to Dr. Erwin's notes as well as Dr. Alvarez's note for further details. Patient is accompanied by her niece in law who provides some of the history. It seems that the patient has history of A-fib and she is on Eliquis she is legally blind so the neighbor is the one that places her medications to give her and according to the niece a lot unsure if her neighbor misses giving her that medication. She presents with right facial weakness, slurred speech and mild right arm weakness. Objective - Vital Signs Vital signs: Vital Signs Temp 97.7 F 12/31/24 07:54 Pulse 80 12/31/24 12:18 Resp 16 12/31/24 12:18 BP 136/69 12/31/24 12:18 Pulse Ox 95 12/31/24 12:18 FiO2 Intake & Output 12/30/24 12/31/24 12/31/24 18:59 06:59 18:59 Intake Total 340 200 Output Total 1050 Balance -710 200 Weight 68 kg Intake: Oral 340 200 Output: Urine 1050 Other: Voiding Method Diaper Diaper Diaper External Catheter External Catheter # Voids 2 1 - Exam General: Lying in bed and is not in acute distress. Neuro: The patient is awake alert oriented to self as well as place. Is following simple commands. No aphasia. 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 Extraocular movements intact no nystagmus. Patient has right lower facial weakness. She does not have mild to moderate dysarthria. Tongue is midline moves [id number] without difficulty Motor is right upper extremity is 4+ out of 5. Otherwise strength is 5 out of 5. Sensation is normal to touch - Labs CBC & Chem 7: 12/31/24 06:18 12/31/24 06:18 Labs: Abnormal Lab Results - Last 24 Hours (Table) 12/31/24 12/31/24 Range/Units 06:18 06:18 MCHC 31.6 L (32.0-37.0) g/dL Monocytes # 1.07 H (0.20-1.00) 10*3/uL Eosinophils # 0.41 H (0.04-0.35) 10*3/uL BUN 29 H (7-17) mg/dL Creatinine 1.22 H (0.52-1.04) mg/dL Assessment and Plan Assessment: The patient is an 83-year-old female with slurred speech and right-sided weakness 1. Acute stroke, multifocal, involving left middle cerebral artery territory. Event appears embolic in nature. Patient has subsequently developed more areas of ischemic infarction in the left hemispheric region while in the hospital. 2. History of atrial fibrillation on Eliquis 3. Bilateral ICA stenosis, about 56% in the right ICA and 47% in the left ICA. However the left ICA stenosis appears symptomatic. 4. History of hypertension 5. History of COPD 6. Pulmonary edema and congestive heart failure 7. Ex tobacco use 8. Hyperlipidemia 9. Migraine headaches Plan: 1. Repeat MRI of the brain revealed redemonstration of foci of restricted diffusion within the left frontoparietal lobes with several new foci within these region. Additional new focus within the right frontal lobe. Findings are consistent with acute/subacute ischemia. Raises concern for embolic from in and due to distribution. Similar advanced nonspecific white matter changes, likely related to small vessel ischemic disease. Remote ischemic injury within the right frontal lobe. 2. Initial MRI of the brain revealed few foci of restricted diffusion within the left frontal and parietal lobes consistent with acute/subacute ischemia. Advanced nonspecific white matter changes, likely related to small vessel ischemic disease. Remote ischemic injury within the right frontal lobe. I personally reviewed MRI, agree with the findings. 3. Dr. Erwin, switched from aspirin to Plavix 75 mg. Continue Eliquis 5 mg twice daily. (Prior to arrival, patient was on aspirin 81 mg and Eliquis). 4. Vascular surgery is consulted and they reviewed the images and they did not feel her strokes were due to her carotid stenosis they did not feel the carotid stenosis was significant enough and they felt its likely due to her A-fib especially with bilateral. Patient follows up with Dr. Nj. 5. 2D echo revealed LVEF 55 to 60%. No obvious regional wall motion abnormalities. Mild concentric LVH. Grade 2 diastolic dysfunction. Thickened and calcified mitral leaflets with mild MR. Moderate left atrial dilation. No evidence of [id number] shunt on bubble study. Moderate left atrial dilation. 6. Speech therapy consultation regarding swallow eval 7. CTA of head and neck revealed moderate narrowing of 56% of the right ICA. Mild narrowing of the left ICA about 47%. Possible normal variation with hyp oplastic A1 segment and less well-visualized right [place]. The right ICA stenosis is not symptomatic, as symptoms are on the ipsilateral side. 8. Hemoglobin A1c 6.2 9. Lipid panel with cholesterol 232, LDL 127, HDL 78, triglycerides 133. Patient was not on statins at home. Patient started on Lipitor 40 mg daily. Watch for hepatic panel. 10. Patient declined to go to subacute rehab. She was to go home with home care 11. Fioricet is not helping for her migraine. Continue tramadol.. Her headache could be related to significantly elevated blood pressure. Recommend optimize control of blood pressure. She is not complaining of headaches today. 12. PT, OT, speech therapy. Upon discharge recommend the patient to follow-up with a neurologist as an outpatient within 2 to 3 weeks. Plan is discussed with the patient and her niece in law who is at bedside. Time with Patient: Less than 30
[2025-01-01] MEDS: HYDROcodone/APAP 5-325MG 1 EACH TAB PO PRN (01:06)
--- NOTE | 2025-01-01 11:02 | P.PN ---
Subjective Progress Note Date: 01/01/25 Principal diagnosis: Acute stroke Patient is seen and examined today as a follow-up. She is currently lying in her bed with lights off and an ice pack on her head. States she has a migraine. She denies any other new focal deficits. Objective - Vital Signs Vital signs: Vital Signs Temp 97.7 F 01/01/25 07:40 Pulse 64 01/01/25 07:40 Resp 20 01/01/25 07:40 BP 151/69 01/01/25 07:40 Pulse Ox 95 01/01/25 07:40 FiO2 Intake & Output 12/31/24 01/01/25 01/01/25 18:59 06:59 18:59 Intake Total 200 Balance 200 Weight 69.5 kg Intake: Oral 200 Other: Voiding Method Diaper Diaper Diaper # Voids 1 2 1 - Exam General appearance: The patient is alert, oriented, appears in no acute distress. Lying in bed in the dark with ice pack on her head. HET: Head is normocephalic and atraumatic. Neck: Supple. No audible bruit. Abdomen: Soft, nondistended. Extremities: Right groin with excoriation, wound. Palpable radial pulses. Neurological: Patient aphasic, right facial droop. Bilateral upper and lower extremities strength and tone. - Labs CBC & Chem 7: 12/31/24 06:18 12/31/24 06:18 Assessment and Plan Assessment: 1. Acute ischemic stroke to the left frontal and parietal region and right frontal region with symptoms of aphasia and right facial droop 2. No hemodynamically significant internal carotid artery stenosis bilaterally 3. Atrial fibrillation 4. COPD 5. Hypertension 6. Migraines 7. Former smoker Plan: 1. Agree with Eliquis, Plavix and statin, continue medical therapy 2. CT angiogram imaging independently reviewed with no hemodynamically significant carotid stenosis bilaterally 3. Carotid ultrasound ordered and reviewed. Again no hemodynamically significant carotid stenosis bilaterally 4. Continue with further workup and recommendations from neurology 5. There is no indication for any vascular surgical intervention at this time, do not believe ischemic stroke secondary to carotid stenosis, this was discussed with neurologist Dr. Esqueda 6. Patient does follow with Dr. Pedroza for atrial fibrillation and scheduled for carotid ultrasound. Recommend outpatient follow-up. Thank you for this consultation. We will sign off at this time. The impression and plan of care has been dictated as directed. Dr. Champagne I performed a history and examination of this patient, discussed the same with the dictator. I agree with the dictator's note ,documented as a scribe. Any additional findings or plans will be noted.
[2025-01-01 11:10] VITALS: BMI 33.1
--- NOTE | 2025-01-01 14:16 | P.PN ---
Subjective Progress Note Date: 01/01/25 83-year-old female came in complaints of slurred speech that started today morning at 5:45 AM. Patient does not have any other focal weakness. Patient does have history of atrial fibrillation on Eliquis at home. Patient also has chronic heart failure history chronic diastolic function. Patient has pulm edema on exam patient does have elevated JVD as well. Patient denied any UTI symptoms urine is significant. Mildly abnormal because of which patient was started on antibiotics patient has asymptomatic bacteriuria. CT of the head was done which showed periventricular white matter ischemic changes and patient does have right-sided facial droop as well. CT angio of the head did not show any significant abnormality neurology was consulted physical therapy Occupational Therapy and speech therapy were consulted. 12/24/2024 Patient seen and examined at bedside. She continues to have right-sided facial droop with aphasia. MRI and echocardiogram completed. Neurology following patient. N.p.o. until speech evaluation completed. 12/27/2024 Patient seen and examined at bedside. During exam patient does continue to have aphasia with right-sided facial droop. She was evaluated by PT with progressive weakness, and drooling noted. CT brain with no new changes. She will likely need rehab. Patient is being seen by neurology. Maintained on Eliquis, Plavix. 12/28/2024 Patient seen and examined at bedside. She is awaiting placement for rehab. During exam patient does continue to have aphasia with right-sided facial droop. MRI findings of no foci in frontal parietal lobes, consistent with acute/subacute ischemia. Patient is being seen by neurology. Maintained on Eliquis, Plavix. 12/29/2024 Patient seen and examined at bedside. She is awaiting placement for rehab. During exam patient does continue to have aphasia with right-sided facial droop. Patient is being seen by neurology. Maintained on Eliquis, Plavix. 12/30/2024 Patient is lying in the bed. Awake alert and oriented. Feels better. Complains of headache today. Blood pressure is also elevated. Patient was started on Norvasc 5 mg daily. Titrate dose as needed. Patient is tolerating oral diet. Laboratory pressure WBC 9.39 hemoglobin 14.1 and platelets 369 sodium 141 potassium 4.2 chloride 108 bicarbonate 24 BUN 13 creatinine 1.40 and blood sugar 110. 12/31/2024 Patient seen and examined at bedside. She is awake and oriented. She continues to have right-sided aphasia. She is tolerating oral diet. She is awaiting authorization for rehab. 01/01/2025 Patient seen and examined at bedside. No acute events overnight. She does complain of intermittent headache and began on tramadol. She is awaiting author ization for rehab. REVIEW OF SYSTEMS: All other systems are negative except those mentioned in the HPI PHYSICAL EXAMINATION: Vitals reviewed GENERAL: The patient is alert and oriented x3, not in any acute distress. Well developed, well nourished. CARDIOVASCULAR: S1 and S2 present. No murmurs, rubs, or gallops. PULMONARY: Normal breath sound bilaterally ABDOMEN: Soft, nontender, nondistended, normoactive bowel sounds. No palpable organomegaly. MUSCULOSKELETAL: No joint swelling or deformity. EXTREMITIES: No cyanosis, clubbing, or pedal edema. NEUROLOGICAL: Motor aphasia as mentioned above along with right-sided facial droop. SKIN: No rashes. Today's findings: No new labs or imaging Assessment and plan -Cerebrovascular accident probably embolic in nature involving the frontal and parietal lobes on the left side from her atrial fibrillation patient is on Eliquis which was resumed. MRI brain complete, hemoglobin A1c and lipid panel reviewed, PT and OT. Continue dysphagia diet. Aspirin changed to Plavix. -Moderate stenosis of the right ICA per CTA, vascular surgery agrees with medical therapy, no surgical intervention at this time needed. - Atrial fibrillation patient will be resumed on rate control medications and anticoagulation with Eliquis. - Congestive heart failure: Chronic diastolic function with acute exacerbation patient was given a dose of IV Lasix and patient started back on 20 mg IV twice daily of Lasix which will be continued - COPD with mild acute exacerbation improved. Continue with DuoNebs and Symbicort. -Asymptomatic bacteriuria will not require any antibiotics -Hypertension uncontrolled. - Gastroesophageal flux disease - Hypothyroidism Hypokalemiaresolved - EMILI due to hypovolemia, nonoliguric, improving. Continue to follow. For above-mentioned chronic medical problems patient will be resumed on appropriate home medications DVT prophylaxis: Resume Eliquis Dr. Haro seen patient with resident, present during exam, and agreed with [facility]. Objective - Vital Signs Vital signs: Vital Signs Temp 97.5 F L 01/01/25 11:17 Pulse 67 01/01/25 11:17 Resp 18 01/01/25 11:17 BP 157/77 01/01/25 11:17 Pulse Ox 96 01/01/25 11:17 FiO2 Intake & Output 12/31/24 01/01/25 01/01/25 18:59 06:59 18:59 Intake Total 200 Balance 200 Weight 69.5 kg 69.5 kg Intake: Oral 200 Other: Voiding Method Diaper Diaper Diaper # Voids 1 2 1 - Labs CBC & Chem 7: 12/31/24 06:18 12/31/24 06:18
[2025-01-01 15:37] VITALS: RESP 16
--- NOTE | 2025-01-01 17:17 | P.PN ---
Subjective Progress Note Date: 01/01/25 I am following up with the patient and she states that she is having a headache and the medication is not helping so far. Otherwise no new neurological issues. Objective - Vital Signs Vital signs: Vital Signs Temp 97.5 F L 01/01/25 15:36 Pulse 82 01/01/25 15:36 Resp 16 01/01/25 15:36 BP 171/80 01/01/25 15:36 Pulse Ox 95 01/01/25 15:36 FiO2 Intake & Output 12/31/24 01/01/25 01/01/25 18:59 06:59 18:59 Intake Total 200 Balance 200 Weight 69.5 kg 69.5 kg Intake: Oral 200 Other: Voiding Method Diaper Diaper Diaper # Voids 1 2 1 - Exam General: Lying in bed and is in mild to moderate acute distress. Neuro: The patient is awake alert oriented to self as well as place. Is following simple commands. No aphasia. 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 Extraocular movements intact no nystagmus. Patient has right lower facial weakness. She does not have mild to moderate dysarthria. Tongue is midline moves [id number] without difficulty Motor is right upper extremity is 4+ out of 5. Otherwise strength is 5 out of 5. Sensation is normal to touch - Labs CBC & Chem 7: 12/31/24 06:18 12/31/24 06:18 Assessment and Plan Assessment: The patient is an 83-year-old female with slurred speech and right-sided weak ness 1. Acute stroke, multifocal, involving left middle cerebral artery territory. Event appears embolic in nature. Patient has subsequently developed more areas of ischemic infarction in the left hemispheric region while in the hospital. 2. History of atrial fibrillation on Eliquis 3. Bilateral ICA stenosis, about 56% in the right ICA and 47% in the left ICA. However the left ICA stenosis appears symptomatic. 4. History of hypertension 5. History of COPD 6. Pulmonary edema and congestive heart failure 7. Ex tobacco use 8. Hyperlipidemia 9. Migraine headaches Plan: 1. Repeat MRI of the brain revealed redemonstration of foci of restricted diffusion within the left frontoparietal lobes with several new foci within these region. Additional new focus within the right frontal lobe. Findings are consistent with acute/subacute ischemia. Raises concern for embolic from in and due to distribution. Similar advanced nonspecific white matter changes, likely related to small vessel ischemic disease. Remote ischemic injury within the right frontal lobe. 2. Initial MRI of the brain revealed few foci of restricted diffusion within the left frontal and parietal lobes consistent with acute/subacute ischemia. Advanced nonspecific white matter changes, likely related to small vessel ischemic disease. Remote ischemic injury within the right frontal lobe. I personally reviewed MRI, agree with the findings. 3. Dr. Erwin, switched from aspirin to Plavix 75 mg. Continue Eliquis 5 mg twice daily. (Prior to arrival, patient was on aspirin 81 mg and Eliquis). 4. Vascular surgery is consulted and they reviewed the images and they did not feel her strokes were due to her carotid stenosis they did not feel the carotid stenosis was significant enough and they felt its likely due to her A-fib especially with bilateral. Patient follows up with Dr. Nj. 5. 2D echo revealed LVEF 55 to 60%. No obvious regional wall motion abnormalities. Mild concentric LVH. Grade 2 diastolic dysfunction. Thickened and calcified mitral leaflets with mild MR. Moderate left atrial dilation. No evidence of [id number] shunt on bubble study. Moderate left atrial dilation. 6. Speech therapy consultation regarding swallow eval 7. CTA of head and neck revealed moderate narrowing of 56% of the right ICA. Mild narrowing of the left ICA about 47%. 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 The right ICA stenosis is not symptomatic, as symptoms are on the ipsilateral side. 8. Hemoglobin A1c 6.2 9. Lipid panel with cholesterol 232, LDL 127, HDL 78, triglycerides 133. Patient was not on statins at home. Patient started on Lipitor 40 mg daily. Watch for hepatic panel. 10. Patient declined to go to subacute rehab. She was to go home with home care 11. Fioricet is not helping for her migraine. Continue tramadol.. Her headache could be related to significantly elevated blood pressure. Recommend optimize control of blood pressure. She is complaining of headache and I gave one time Compazine and benadry IV. I will get a repeat CT head. 12. PT, OT, speech therapy. Upon discharge recommend the patient to follow-up with a neurologist as an outpatient within 2 to 3 weeks. Time with Patient: Less than 30
--- NOTE | 2025-01-01 18:30 | CT ---
EXAMINATION TYPE: CT brain wo con DATE OF EXAM: 01/01/2025 6:11 PM COMPARISON: 12/26/2024 CLINICAL INDICATION: Female, 84 years old with history of headache with recent cva and is eliquis., H supriyadache with recent cva and is eliquis. TECHNIQUE: CT of the brain is performed utilizing 3 mm thick sections through the posterior fossa and 3 mm thick sections through the remaining calvarium. Study is performed within 24 hours of arrival to the hospital. Contrast used: mL of , (none if empty) CT DLP: 1097.4 mGycm, Automated exposure control for dose reduction was used. FINDINGS: No abnormal hyperdensity is present to suggest an acute intracranial hemorrhage. No mass lesion is evident. No acute infarcts are evident. There is confluent periventricular white matter hypodensity, likely on the basis of chronic white matter ischemic changes. There is focal hypodensity along the right front al parietal lobe extending through the cortex compatible with an old infarct. Some ex vacuo effect on adjacent sulci is present. There is some ex vacuo effect on the lateral ventricles without hydroceph alus. Temporal horns are normal. Overall, ventricles and sulci are prominent for the patient age. Paranasal sinuses and mastoid air cells within the [id number] are clear. IMPRESSION: 1. No acute intracranial process. Follow up MRI can be performed as clinically indicated. 2. Old right frontoparietal infarct. 3. Confluent periventricular white matter ischemic-type changes. 4. No significant interval change from 12/26/2024 exam [facility], , 01/01/2025 6:28 PM
[2025-01-01] MEDS: PROCHLORPERAZINE INJ 10 MG/2 ML VIAL IVP STA (19:52)
[2025-01-01] MEDS: diphenhydrAMINE 50 MG/ML 1 ML VIAL IVP STA (19:52)
--- NOTE | 2025-01-02 10:48 | P.DS ---
Providers Date of admission: 12/23/24 08:44 Expected date of discharge: 01/02/25 Attending physician: Fernie Wadsworth Consults: 12/23/24 08:42 Consult Physician Routine Consulting Provider: Sarah Erwin Consult Reason/Comments: CVA Do you want consulting provider notified?: Yes 12/25/24 07:34 Consult Physician Routine Consulting Provider: Wyatt Butler Consult Reason/Comments: eval for IPR Do you want consulting provider notified?: Yes Primary care physician: Stated None Hospital Course: Discharge diagnoses; - Cerebrovascular accident probably embolic in nature involving the frontal and parietal lobes on the left side from her atrial fibrillation. - Moderate stenosis of the right ICA - Atrial fibrillation, rate controlled - Congestive heart failure - COPD -Asymptomatic bacteriuria -Hypertension - Gastroesophageal flux disease - Hypothyroidism Hypokalemia - EMILI due to hypovolemia, nonoliguric Hospital course; 83-year-old female came in complaints of slurred speech that started today morning at 5:45 AM. Patient does not have any other focal weakness. Patient does have history of atrial fibrillation on Eliquis at home. Patient also has chronic heart failure history chronic diastolic function. Patient has pulm edema on exam patient does have elevated JVD as well. Patient denied any UTI symptoms urine is significant. Mildly abnormal because of which patient was started on antibiotics patient has asymptomatic bacteriuria. CT of the head was done which showed periventricular white matter ischemic changes and patient does have right-sided facial droop as well. CT angio of the head did not show any significant abnormality neurology was consulted physical therapy Occupational Therapy and speech therapy were consulted. During hospital stay patient treated for acute stroke, multifocal, involving left middle cerebral artery territory. Event appears embolic in nature. Patient has subsequently developed more areas of ischemic infarction in the left hemispheric region while in the hospital. MRI brain complete. Aspirin changed to Plavix. Moderate stenosis of the right ICA per CTA, vascular surgery agrees with medical therapy, no surgical intervention at this time needed. Patient discharged to rehab in stable condition. She will continue Lasix 40 mg daily, Lipitor 40 mg nightly, and Plavix 75 mg daily. Continue Eliquis 5 mg twice daily. She is to follow-up with neurology in 2 to 3 weeks as an outpatient and her PCP. PHYSICAL EXAMINATION: Vitals reviewed GENERAL: The patient is alert and oriented x3, not in any acute distress. Well developed, well nourished. CARDIOVASCULAR: S1 and S2 present. No murmurs, rubs, or gallops. PULMONARY: Normal breath sound bilaterally ABDOMEN: Soft, nontender, nondistended, normoactive bowel sounds. No palpable organomegaly. MUSCULOSKELETAL: No joint swelling or deformity. EXTREMITIES: No cyanosis, clubbing, or pedal edema. NEUROLOGICAL: Motor aphasia as mentioned above along with right-sided facial droop. SKIN: No rashes. Dr. Haro seen patient with resident, present during exam, and agreed with findings. Dictation was produced using [employer] dictation software. please excuse any g rammatical, word or spelling errors. Patient Condition at Discharge: Stable Plan - Discharge Summary Discharge Rx Participant: No New Discharge Prescriptions: New Furosemide [Lasix] 40 mg PO DAILY #30 tablet Atorvastatin [Lipitor] 40 mg PO HS #90 tab Clopidogrel [Plavix] 75 mg PO DAILY #90 tablet Continue Apixaban [Eliquis] 5 mg PO BID tab Cyanocobalamin (Vitamin B-12) [Vitamin B-12] 1,000 mcg PO DAILY Cholecalciferol (Vitamin D3) [Vitamin D3 (50 Mcg = 2000 Iu)] 50 mcg PO DAILY lisinopriL [Zestril] 10 mg PO DAILY Butalb/Acetaminophen/Caffeine [Fioricet 50-300-40 mg Capsule] 1 - 2 cap PO BID PRN MDD 4 CAPS PRN Reason: Migraine Headache Levothyroxine Sodium [Synthroid] 25 mcg PO DAILY Cholecalciferol [Vitamin D3 (25 Mcg = 1000 Iu)] 25 mcg PO HS Melatonin 3 mg PO HS Ipratropium-Albuterol Nebulize [Duoneb 0.5 mg-3 mg/3 ml Soln] 3 ml INHALATION RT-QID PRN PRN Reason: Shortness Of Breath traMADol HCL 50 mg PO DAILY Amiodarone [Cordarone] 200 mg PO BID Biotin [Biotin Disolve] 10,000 mcg PO DAILY Discharge Medication List Apixaban [Eliquis] 5 mg PO BID tab 06/10/18 [Rx] Cholecalciferol [Vitamin D3 (25 Mcg = 1000 Iu)] 25 mcg PO HS 03/14/22 [History] Levothyroxine Sodium [Synthroid] 25 mcg PO DAILY 03/14/22 [History] Melatonin 3 mg PO HS 11/24/22 [History] Cyanocobalamin (Vitamin B-12) [Vitamin B-12] 1,000 mcg PO DAILY 07/12/24 [History] Amiodarone [Cordarone] 200 mg PO BID 12/23/24 [History] Biotin [Biotin Disolve] 10,000 mcg PO DAILY 12/23/24 [History] Butalb/Acetaminophen/Caffeine [Fioricet 50-300-40 mg Capsule] 1 - 2 cap PO BID PRN MDD 4 CAPS 12/23/24 [History] Cholecalciferol (Vitamin D3) [Vitamin D3 (50 Mcg = 2000 Iu)] 50 mcg PO DAILY 12/23/24 [History] Ipratropium-Albuterol Nebulize [Duoneb 0.5 mg-3 mg/3 ml Soln] 3 ml INHALATION RT-QID PRN 12/23/24 [History] lisinopriL [Zestril] 10 mg PO DAILY 12/23/24 [History] traMADol HCL 50 mg PO DAILY 12/23/24 [History] Atorvastatin [Lipitor] 40 mg PO HS #90 tab 12/25/24 [Rx] Clopidogrel [Plavix] 75 mg PO DAILY #90 tablet 12/25/24 [Rx] Furosemide [Lasix] 40 mg PO DAILY #30 tablet 12/25/24 [Rx] Follow up Appointment(s)/Referral(s): Rachell Watt MD [REFERRING] - 01/01/25 2:20 pm Ayush Boswell DO [STAFF PHYSICIAN] - 1 Week Ambulatory/Diagnostic Orders: Basic Metabolic Panel [LAB.AMB] Location: None Selected Complete Blood Count w/diff [LAB.AMB] Location: None Selected Patient Instructions/Handouts: Pulmonary Embolism (DC), Urinary Tract Infection in Women (DC), Altered Mental Status (ED), Stroke (DC) Activity/Diet/Wound Care/Special Instructions: [facility] . Begin Plavix daily, Lipitor 40 mg daily, and Lasix 40 mg daily. Follow-up with labs ordered at PCPs office. Schedule outpatient follow-up for neurology. Will need to continue with PT and OT as outpatient. Discharge/Stand Alone Forms: Who Do I Call?, Community Resources, Personal Blow Torch Operator
[2025-01-02 11:33] VITALS: BP 121/74; PULSE 83; TEMP 97.7
--- NOTE | 2025-01-02 12:01 | P.PN ---
Subjective Progress Note Date: 01/02/25 I am following up with the patient and she feels her headache is drastically better today compared to yesterday after she received the Compazine and the Benadryl. Denies of any new neurological issues. Objective - Vital Signs Vital signs: Vital Signs Temp 97.7 F 01/02/25 11:15 Pulse 83 01/02/25 11:15 Resp 16 01/02/25 11:15 BP 121/74 01/02/25 11:15 Pulse Ox 93 L 01/02/25 11:15 FiO2 Intake & Output 01/01/25 01/02/25 01/02/25 18:59 06:59 18:59 Weight 69.5 kg 69 kg Other: Voiding Method Diaper Diaper Diaper # Voids 1 1 - Exam General: Lying in bed and is not in acute distress. Neuro: The patient is awake alert oriented to self as well as place. Is following simple commands. No aphasia. 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 Extraocular movements intact no nystagmus. Patient has right lower facial weakness. She has mild to moderate dysarthria. Motor is right upper extremity is 4+ out of 5. Otherwise strength is 5 out of 5. Sensation is normal to touch - Labs CBC & Chem 7: 12/31/24 06:18 12/31/24 06:18 Assessment and Plan Assessment: The patient is an 83-year-old female with slurred speech and right-sided weakness 1. Acute stroke, multifocal, involving left middle cerebral artery territory. Event appears embolic in nature. Patient has subsequently developed more areas of ischemic infarction in the left hemispheric region while in the hospital. 2. History of atrial fibrillation on Eliquis 3. Bilateral ICA stenosis, about 56% in the right ICA and 47% in the left ICA. However the left ICA stenosis appears symptomatic. 4. History of hypertension 5. History of COPD 6. Pulmonary edema and congestive heart failure 7. Ex tobacco use 8. Hyperlipidemia 9. Migraine headaches Plan: 1. Repeat MRI of the brain revealed redemonstration of foci of restricted diffusion within the left frontoparietal lobes with several new foci within these region. Additional new focus within the right frontal lobe. Findings are consistent with acute/subacute ischemia. Raises concern for embolic from in and due to distribution. Similar advanced nonspecific white matter changes, likely related to small vessel ischemic disease. Remote ischemic injury within the right frontal lobe. 2. Initial MRI of the brain revealed few foci of restricted diffusion within the left frontal and parietal lobes consistent with acute/subacute ischemia. Advanced nonspecific white matter changes, likely related to small vessel ischemic disease. Remote ischemic injury within the right frontal lobe. I personally reviewed MRI, agree with the findings. 3. Repeat CT head on : No acute intracranial process. Follow-up MRI can be performed at clinically indicated. Old right frontoparietal infarct. Confluent periventricular white matter ischemic type changes. No significant interval change from 12/26/2024. 4. Dr. Erwin, switched from aspirin to Plavix 75 mg. Continue Eliquis 5 mg twice daily. (Prior to arrival, patient was on aspirin 81 mg and Eliquis). 5. Vascular surgery is consulted and they reviewed the images and they did not feel her strokes were due to her carotid stenosis they did not feel the carotid stenosis was significant enough and they felt its likely due to her A-fib especially with bilateral. Patient follows up with Dr. Nj. 6. 2D echo revealed LVEF 55 to 60%. No obvious regional wall motion abnormalities. Mild concentric LVH. Grade 2 diastolic dysfunction. Thickened and calcified mitral leaflets with mild MR. Moderate left atrial dilation. No evidence of [id number] shunt on bubble study. Moderate left atrial dilation. 7. Speech therapy consultation regarding swallow eval 8. CTA of head and neck revealed moderate narrowing of 56% of the right ICA. Mild narrowing of the left ICA about 47%. 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 The right ICA stenosis is not symptomatic, as symptoms are on the ipsilateral side. 9. Hemoglobin A1c 6.2 10. Lipid panel with cholesterol 232, LDL 127, HDL 78, triglycerides 133. Patient was not on statins at home. Patient started on Lipitor 40 mg daily. Watch for hepatic panel. 11. Patient declined to go to subacute rehab. She was to go home with home care 12. Fioricet is not helping for her migraine. Continue tramadol.. Her headache could be related to significantly elevated blood pressure. Recommend optimize control of blood pressure. Headache is better today. 13. PT, OT, speech therapy. Upon discharge recommend the patient to follow-up with a neurologist as an outpatient within 2 to 3 weeks. Otherwise no additional neurological work-up. The plan is discussed with patient and her nurse. Time with Patient: Less than 30
== END 2025-01-02 16:02 | DRG 64 ==
LOC: EC 06:50 → INTOOBSV 08:43 → 3SCARD 08:43 → OBSVTOIN 08:44 → 3SCARD 14:41
PROVIDERS: ADMIT Hospitalist; ATTEND Hospitalist
DX: I63.40 Cerebral infarction due to embolism of unspecified cerebral artery (principal); I50.33 Acute on chronic diastolic (congestive) heart failure; J44.1 Chronic obstructive pulmonary disease with (acute) exacerbation; I63.81 Other cerebral infarction due to occlusion or stenosis of small artery; N17.9 Acute kidney failure, unspecified; R13.10 Dysphagia, unspecified; R29.706 NIHSS score 6; R47.01 Aphasia; I48.0 Paroxysmal atrial fibrillation; I11.0 Hypertensive heart disease with heart failure; M06.9 Rheumatoid arthritis, unspecified; E03.9 Hypothyroidism, unspecified; I34.0 Nonrheumatic mitral (valve) insufficiency; N39.0 Urinary tract infection, site not specified; I65.23 Occlusion and stenosis of bilateral carotid arteries; Z87.891 Personal history of nicotine dependence; K21.9 Gastro-esophageal reflux disease without esophagitis; M81.0 Age-related osteoporosis without current pathological fracture; R29.810 Facial weakness; E78.5 Hyperlipidemia, unspecified; E86.1 Hypovolemia; E87.6 Hypokalemia; G43.909 Migraine, unspecified, not intractable, without status migrainosus; H54.8 Legal blindness, as defined in USA; R32 Unspecified urinary incontinence; Z79.01 Long term (current) use of anticoagulants; Z79.02 Long term (current) use of antithrombotics/antiplatelets; Z79.51 Long term (current) use of inhaled steroids; Z79.82 Long term (current) use of aspirin; Z79.890 Hormone replacement therapy; Z79.899 Other long term (current) drug therapy; Z86.73 Personal history of transient ischemic attack (TIA), and cerebral infarction without residual deficits; Z60.2 Problems related to living alone; H35.30 Unspecified macular degeneration; Z88.0 Allergy status to penicillin; Z88.2 Allergy status to sulfonamides; Z88.8 Allergy status to other drugs, medicaments and biological substances; Z88.1 Allergy status to other antibiotic agents; Z91.012 Allergy to eggs; Z91.040 Latex allergy status; Z28.310 Unvaccinated for COVID-19
CPT/HCPCS: 36415; 51702; 70450; 70496; 70498; 70551; 71045; 80048; 80053; 80061; 80306; 81001; 82550; 83036; 83880; 84145; 84439; 84443; 84484; 85025; 85027; 85379; 85610; 85730; 87077; 87086; 87186; 93005; 93306; 93880; 94640; 94760; 96361; 96374; 96375; 99291